=== PATIENT | female | born 1970 | race Caucasian/White ===

== ENCOUNTER → 2020-03-14 11:03 | Outpatient (BNVA) | payer BC, SELFPAY | PROVIDERS: PCP Nurse Practitioner; Visit Provider Internal Medicine Rheumatology | DX: M05.79 Rheumatoid arthritis with rheumatoid factor of multiple sites without organ or systems involvement (principal); Z79.899 Other long term (current) drug therapy; Z11.59 Encounter for screening for other viral diseases; F17.210 Nicotine dependence, cigarettes, uncomplicated; Z79.52 Long term (current) use of systemic steroids | CPT/HCPCS: 36415; 80076; 82565; 86140; 86704; 86803; 87340; 99204 ==

== ENCOUNTER → 2020-04-09 13:06 | Outpatient (BNVA) | payer BC, SELFPAY | PROVIDERS: PCP Nurse Practitioner; Visit Provider Orthopaedic Surgery | DX: M25.569 Pain in unspecified knee (principal) | CPT/HCPCS: 73560; 73565 ==

== ENCOUNTER 2020-05-04 15:09 | Outpatient (CLI) | payer BC, SELFPAY ==
--- NOTE | 2020-05-04 15:14 | MM_ITS ---
WS: [id number] BILATERAL DIGITAL SCREENING MAMMOGRAPHY WITH CAD CLINICAL INFORMATION: SCREENING HISTORY: Screening mammogram. No current complaints. COMPARISON: None. TECHNIQUE: Bilateral CC and MLO views. FINDINGS: Scattered fibroglandular densities bilaterally. No suspicious focal mass, asymmetry, calcifications, or architectural distortion. No evidence of malignancy. A few benign punctate calcifications. MM/[place] [id number] IMPRESSION: BI-RADS: 2-Benign FOLLOW UP: 1 Year Follow-up Recommend return to annual screening mammography.
== END 2020-05-04 15:10 | disposition home or self-care (01) ==
LOC: RADSHAW 15:12
PROVIDERS: PCP Nurse Practitioner; Visit Provider Nurse Practitioner
DX: Z12.31 Encounter for screening mammogram for malignant neoplasm of breast (principal)
CPT/HCPCS: 77067

== ENCOUNTER → 2020-05-09 10:08 | Outpatient (BNVA) | payer BC, SELFPAY | PROVIDERS: PCP Nurse Practitioner; Visit Provider Orthopaedic Surgery | DX: Z01.812 Encounter for preprocedural laboratory examination (principal); Z20.828 Contact with and (suspected) exposure to other viral communicable diseases | CPT/HCPCS: 87635 ==

== ENCOUNTER 2020-05-14 09:01 | Observation (INO) | payer BC, SELFPAY ==
[2020-05-10 11:59] VITALS: BMI 36.0
--- NOTE | 2020-05-10 12:17 | ANES.PREANE2 ---
Pre-Anesthetic Assessment Pre-Anesthetic Assessment: Height/Weight: Height 1.63 m Weight 95.254 kg Proposed Procedure: Operation Date: 05/14/20 10:10 Proposed Procedures p left Total Knee Arthroplasty 93937 M17.0(Left) - Devang Horan MD Familial anesthetic complications: woke up during surgery (was a spinal) Social: Social History: No alcohol and No tobacco Exam: Pre-Anes Outpt Exam: alert, oriented x 3, clear to auscultation bilaterally and regular rate & rhythm Airway: Cervical ROM: WNL MP: 3 Dentition: False (top) and Other (missing back molars) CV/HEM: CV/HEM: HTN Metabolic: Metabolic: Thyroid Musc/skel: Musc/skel: RA Comments: prednisone daily (will need hydrocortisone 100 mg IV pre-op) Neuropsych: Neuropsych: None reported Anesthetic Plan: ASA status: 2 Anesthesia: General and Regional (specify below) Other: Patient declining spinal, but ok w/ nerve block Risk of > 500 ml blood loss (7ml/kg in children): No PFSH Anesthesia PFSH: Medical History Chronic steroid use High risk medication use Hypertension Hypothyroidism Immunization counseling Rheumatoid arthritis Seropositive rheumatoid arthritis of multiple sites Surgical History History of foot surgery x5 right History of hand surgery 2right hand, 1 left hand History of hip replacement, total bilateral Family History Other CAD (coronary artery disease) Cancer Hyperlipidemia Hypertension Denies family history of Rheumatoid arthritis Diabetes Lupus Chronic kidney disease (CKD) Lung disease Stroke Social History Smoking and tobacco status: current every day smoker History of recent travel: No Data Anesthesia Cardiac Studies: No Data to Display
[2020-05-14] VITALS (19 sets, daily range): BP systolic 105–166; BP diastolic 70–99; PULSE 63–102; RESP 12–20; TEMP 36.1–37.2; O2SAT 94–98
[2020-05-14] MEDS: acetaminophen 500 mg Tablet 1000 MG PO ×2 (05:58→14:04)
[2020-05-14] MEDS: CELEcoxib 200 mg Capsule PO ×2 (05:58→17:41)
[2020-05-14] MEDS: sodium chloride 0.9% 1,000 ML 30 ML IV (05:58)
[2020-05-14] MEDS: oxyCODONE 20 mg ER (12 HR) Tablet PO (06:18)
[2020-05-14] MEDS: midazolam 1 mg/mL INJ 5 ML 5 MG IVP (06:25)
--- NOTE | 2020-05-14 06:34 | P.ANESUD_ITS ---
Pre-Anesthetic Update Pre-Anesthetic Assessment: Date of Surgery/Procedure: 05/14/20 Preop Olesya gnosis: left knee, rheumatoid arthritis/Avascular necrosis Proposed Procedure: Operation Date: 05/14/20 07:00 Proposed Procedures p left Total Knee Arthroplasty 88322 M17.0(Left) - Devang Horan MD Any changes to Pre-Anesthetic Assessment?: No Last Intake: Intake Last Liquid Date 05/13/20 Last Liquid Time 21:00 Last Solid Date 05/13/20 Last Solid Time 21:00 Vitals: Temperature 96.9 F L 05/14/20 05:46 Temperature Source Temporal Artery S can 05/14/20 05:46 Pulse Rate 88 05/14/20 05:46 Pulse Rhythm 05/14/20 05:46 Pulse Strength 3+ Normal 05/14/20 05:46 Respiratory Rate 18 05/14/20 06:18 Respiratory Effort 05/14/20 06:18 Respiratory Depth Normal 05/14/20 06:18 Respiratory Patter n 05/14/20 06:18 Blood Pressure 166/99 05/14/20 05:46 Blood Pressure Sun n 121 05/14/20 05:46 Pulse Oximetry 96 05/14/20 05:46 Oxygen Delivery Me thod 05/14/20 05:46 Exam: Pre-Anes Outpt Exam: alert, oriented x 3, clear to auscultation bilaterally and regular rate & rhythm Cardiac Studies: No Data to Display
--- NOTE | 2020-05-14 06:34 | ANES.PROC ---
Anesthesia Procedures Procedure/Date: 05/14/20 Nerve Block ^: Nerve Block 1: Main Anesthesia: general anesthesia Time Out Performed: Yes Consent: requested by attending/covering physician, from patient, risks and benefits reviewed and patient agrees to proceed Nerve block location: adductor canal (L) Anesthesia monitors applied: pulse oximetry, EKG, BP cuff and oxygen Nerve block position: supine Anesthetic Used: ropivicaine 0.5% and with decadron (4 mg) Amount of anesthesia used (mL): 30 Ultrasound used to: recognize landmarks and visualize and ID femerol nerve Nerve Stimulator Used?: No Interscalene/Femoral BLK: 4 stimuplex 21 g needle used for position and inplane approach, visualize local anesthetic spread and no vascular puncture identified Injection: neg aspiration of heme Patient Tolerated Procedure: well and no complications Complications: none
--- NOTE | 2020-05-14 07:06 | W.PM.OPSFHP ---
Same Day Surgery H&P Indication for Procedure/HPI DATE OF PROCEDURE: May 14, 2020 CHIEF COMPLAINT/INDICATIONFOR SURGICAL PROCEDURE: Osteoarthritis left knee here for left total knee arthroplasty PREOP DIAGNOSIS: left knee, rheumatoid arthritis/Avascular necrosis PLANNED PROCEDRUE: Operation Date: 05/14/20 07:00 Proposed Procedures p left Total Knee Arthroplasty 43556 M17.0(Left) - Devang Horan MD Medications/Allergies* Home Medications Medication Instructions Recorded Confirmed Type gabapentin 100 mg capsule 100 mg PO DAILY 03/14/20 05/14/20 History hydrochlorothiazide 25 mg tablet 25 mg PO DAILY 03/14/20 05/14/20 History ibuprofen 200 mg tablet 800 mg PO Q8H PRN tab 03/14/20 05/10/20 History levothyroxine 175 mcg capsule 175 mcg PO DAILY 03/14/20 05/14/20 History prednisone 10 mg tablet 10 mg PO DAILY 03/14/20 05/14/20 History tramadol 50 mg tablet 100 mg PO TID tab 03/14/20 05/14/20 History Allergies/Adverse Reactions Allergy/AdvReac Type Severity Reaction Status Date / Time Penicillins Allergy Severe ALGY-Anaphy Verified 05/14/20 05:56 laxis Current Medications: Generic Name Dose Route Start Last Admin Trade Name Freq PRN Reason Stop Dose Admin Sodium Chloride 1,000 mls @ 30 mls/hr 05/14/20 05:45 05/14/20 05:58 Sodium Chloride 0.9% IV 05/15/20 05:44 30 mls/hr .Q24H MICHELLE Administration Pertinent History/Comorbid Conditions* Medical History (Updated 04/09/20 @ 13:34 by Devang Horan MD) Chronic steroid use High risk medication use Hypertension Hypothyroidism Immunization counseling Rheumatoid arthritis Seropositive rheumatoid arthritis of multiple sites Surgical History (Updated 03/14/20 @ 12:39 by Devaughn Munson MD) History of foot surgery x5 right History of hand surgery 2right hand, 1 left hand History of hip replacement, total bilateral Family History (Updated 03/14/20 @ 12:00 by Mckenzie Hernadez LPN) CAD (coronary artery disease) Hyperlipidemia Cancer Hypertension Denies family history of Rheumatoid arthritis Diabetes Lupus Chronic kidney disease (CKD) Lung disease Stroke Social History Smoking and tobacco status: current every day smoker History of recent travel: No Pertinent Exam Findings alert, oriented x 3, regular rate & rhythm and operative site marked Recommendations Surgery/Procedure today Coding Level of Care Code Acute 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
[2020-05-14] MEDS: EPINEPHrine 1 mg/mL INJ XX (08:24)
[2020-05-14] MEDS: ketorolac 30 mg/mL INJ IM (08:24)
[2020-05-14] MEDS: tranexamic acid 1,000 mg/10mL SDV 1000 MG IRRIGATION (08:25)
--- NOTE | 2020-05-14 09:19 | P.OP_ITS ---
Operative Report Date of procedure: May 14, 2020 Pre-op Diagnosis: left knee, rheumatoid arthritis/Avascular necrosis Post-op diagnosis: same Post-op Findings: Same Procedure Done: Left total knee arthroplasty Implants: Gilliam total knee arthroplasty components were used includin) Size 3 triathalon cruciate retaining femoral component 2) Size 3 Tritanium tibial component 3) Size 3/11mm thickness CR tibial bearing insert Pathology: none sent Surgeon: Devang Horan Anesthesia: Nerve Block (Spinal) Estimated blood loss (mL): 200 Findings: Patient had collapse of the articular cartilage and subchondral bone of the medial femoral condyle. Pathology seem fairly localized to the avascular necrosis in the medial femoral condyle. She had minimal chondromalacia centrally about her trochlea. Patient had excellent vascularity of the bone throughout the knee. She had minimal synovitis Condition: stable Disposition: PACU Brief History: The patient is a 49-year-old female with rheumatoid arthritis and progressive left knee pain x8 months. Radiographs revealed collapse of the medial femoral condyle consistent with avascular necrosis. Total knee arthroplasty is chosen to reconstruct the joint and improve pain and function. Immunosuppressive agents have been stopped. Procedure: The patient was taken to the operating room. Patient was given 1 g of tranexamic acid . The above anesthesia provided by the anesthesia service. A timeout was performed. The patient was prepped and draped in the usual fashion with the lower extremity exposed. A anterior incision was made, midline, from a point proximal to the patella to the distal tibial tubercle. The knee was entered through a medial parapatellar approach. The patella could be displaced laterally and the knee flexed. The patellar fat pad was resected to provide better visibility. Retractors were placed medially and laterally adjacent to the tibial plateau. The femoral canal was drilled in line with the longitudinal axis of the femur. Intramedullary femoral guide for used to make a distal femoral cut in 5 degrees of valgus, resecting 8 mm from the more prominent condyle. Next the extra medullary tibial guide was placed in alignment with the longitudinal axis of the tibia. The cutting guides were set to remove just over 9 mm from the high tibial plateau. The proximal tibia was then cut. The femoral measuring guide was then placed over the distal femur. Rotation was verified checking the relationship of the guide to the condyle and the trochlear groove. The femur was measured and cut for the desired femoral component. The desired tibial baseplate was then chosen. A trial reduction with the femur tibial baseplate and polyethylene was done, assuring that the knee was stable throughout full motion. Ligament balancing involve nothing more than a release of the deep medial collateral ligament.The tibia was prepared for the tibial baseplate. Patellar thickness was then measured. The patella was cut removing articular cartilage and prepared for appropriate size patellar button. All surfaces were cleaned with pulsatile lavage. The femur tibia and patella were then press-fit into place. The posterior capsule and collateral ligaments were then injected with a solution of 100 mL of 0.2% ropivacaine, 1 mL of a 1:1000 epinephrine solution, and 30 mg of Toradol. Final polyethylene component was then snapped into place into the tibia. 2 grams of tranexamic acid were applied to the wound. The tourniquet was deflated. The tranxanemic acid was left contact with the knee for 5 minutes before the knee was irrigated with saline. The extensor retinaculum was closed with 1 Ethibond. The subcutaneous tissues were closed with 2-0 Vicryl and the skin was closed with skin lan. A compressive dressing was applied. The patient was taken to recovery room in stable condition.
[2020-05-14] MEDS: fentaNYL 50 mcg/mL INJ 2mL IVP ×2 (09:24→09:29)
--- NOTE | 2020-05-14 09:48 | XR_ITS ---
WS: [id number] XR knee LT 2 [id number] REASON FOR EXAM: Left Total knee arthroplasty FINDINGS: There has been left knee arthroplasty with prosthetic replacement of the femoral and tibial articular surfaces. The components of the prosthesis and the tibia and femur are in proper position and alignment. Chronic bony defect in the lateral femoral condyle not associated with the articulation. XR/[place] [id number] IMPRESSION: Left knee arthroplasty as above.
--- NOTE | 2020-05-14 10:17 | SUR.PHASEI ---
0920 PT HAS STRONG l. PEDAL PULSE, CAP REFILL <3 SEC, HAS MOVEMENT/SENSATION
[2020-05-14] MEDS: sodium chloride 0.9% 1,000 ML 100 ML IV ×2 (10:18→21:10)
[2020-05-14] MEDS: clindamycin 900 MG/50 ML PREMIX 100 MG IV ×2 (14:04→23:56)
--- NOTE | 2020-05-14 15:03 | ANE.PACU2 ---
Inpatient post-anesthesia follow up: Airway intact: Yes Vital signs: Temperature 98.9 F Pulse Rate 85 Respiratory Rate 16 Blood Pressure 108/74 Pulse Oximetry 96 Oxygen Delivery Me thod Room Air Oxygen Flow Rate Fraction of Inspir ed Oxygen Hydration adequate: Yes Nausea and vomiting: No Pain level: 4 Mental status: Baseline
[2020-05-14] MEDS: sennosides-docusate Tablet 2 TAB PO (17:41)
[2020-05-14] MEDS: gabapentin 300 mg Capsule PO (17:41)
[2020-05-14] MEDS: TRAMadol 50 mg Tablet 100 MG PO (17:43)
[2020-05-14] MEDS: oxyCODONE 5 mg IR Tab/Cap PO (21:08)
[2020-05-15] MEDS: TRAMadol 50 mg Tablet 100 MG PO (04:58)
[2020-05-15] MEDS: CELEcoxib 200 mg Capsule PO (05:00)
[2020-05-15 05:27] LABS: Hemoglobin 11.3 g/dL (11.5-15.3)
[2020-05-15] MEDS: clindamycin 900 MG/50 ML PREMIX 100 MG IV (06:19)
--- NOTE | 2020-05-15 07:21 | PM.DCS ---
Discharge Providers Date of Admission: 05/14/20 09:01 Date of Discharge: May 15, 2020 Attending Provider at Admission: Devang Horan MD Attending Provider at Discharge: Devang Horan MD Primary Care Provider: AURELIA Bravo Diagnoses at Discharge Discharge Diagnosis (1) Osteonecrosis of left knee region: Status: Acute (2) Status post left knee replacement: Status: Acute (3) Seropositive rheumatoid arthritis of multiple sites: Status: Acute (4) High risk medication use: Status: Acute (5) Chronic steroid use: Status: Acute Reason for Visit Reason for Visit: left total knee arthroplasty Hospital Course Hospital Course The patient is a 49-year-old female with longstanding rheumatoid arthritis and radiographs showing avascular necrosis of her medial femoral condyle. She had progressive limiting pain. She was admitted for elective left total knee arthroplasty. Postoperatively she did very well. She had minimal postoperative pain. She was begun on aspirin and foot pumps for DVT prophylaxis. She remained hemodynamically stable. By the first postoperative day she was up independent with therapy and thought stable for discharge Physical Exam Narrative: EXAM NARRATIVE: On the day of discharge his knee incision was clean. They had no drainage. There is minimal swelling in the thigh and knee and the calf. No distal neurovascular deficits were noted Urinary Catheter Management^: Frey: Cath Placed During This Visit: yes, but has since been removed by the nurse Reason for Continuing Indwelling Catheter: Decision to DC Catheter Urinary Catheter Date of Insertion: 05/14/20 Urinary Catheter Time of Insertion: 07:30 Date Urinary Catheter Removed: 05/15/20 Time Urinary Catheter Discontinued: 06:57 Discharge Data Data Completed and Pending: Completed Studies During Hospitalization Category Date Time Status XR knee LT 1-2V 7 3560 Routine Exams 05/14/20 09:48 Completed Labs from last 24 hours 05/15/20 05:15 Hgb 11.3 L Vitals: Last Vital Signs Temp 98.4 F 05/14/20 16:50 Pulse 63 05/14/20 16:50 Resp 18 05/14/20 21:08 BP 122/79 05/14/20 16:50 Pulse Ox 98 05/14/20 21:08 Discharge Plan Discharge Patient Disposition: Home Condition: Stable Prescriptions: New oxycodone 5 mg Tablet 5 mg PO Q4H PRN (Reason: Moderate Pain) 7 Days Qty: 30 RF: 0 acetaminophen 500 mg Tablet 1,000 mg PO Q8H Qty: 60 RF: 0 aspirin 325 mg Tablet,Delayed Release (Dr/Ec) 325 mg PO DAILY 30 Days RF: 0 Continued hydrochlorothiazide 25 mg tablet 25 mg PO DAILY RF: 0 levothyroxine 175 mcg capsule 175 mcg PO DAILY RF: 0 prednisone 10 mg tablet 10 mg PO DAILY RF: 0 gabapentin 100 mg capsule 100 mg PO DAILY RF: 0 tramadol 50 mg tablet 100 mg PO TID RF: 0 leflunomide 20 mg tablet 20 mg PO DAILY Qty: 30 RF: 3 pantoprazole 40 mg tablet,delayed release (DR/EC) 40 mg PO DAILY Qty: 30 RF: 3 Rinvoq 15 mg tablet extended release 24 hr 15 mg PO DAILY Qty: 30 RF: 3 mupirocin 2 % ointment 1 applic topical BID Qty: 22 RF: 0 Discontinued ibuprofen 200 mg tablet 800 mg PO Q8H PRN (Reason: Pain) RF: 0 Discharge Orders: Discharge Order (Routine); Ordered 05/15/20 Ordered By: Devang Horan Other Ambulatory Orders: DME: [facility] (Order) Location: None Selected Ordered By: Devang Horan Referrals: Devang Horan MD [Physician] - 2 weeks Discharge Diet: Advance as tolerated Discharge Activity: Limit activity as instructed Activity Restrictions/Additional Instructions: May shower once incisions completely free of drainage. Discontinue knee dressing in 24-48 hours. Replaced dressings as needed. Take Celebrex twice a day for the next 15 days for pain , discontinue other anti-inflammatories Increase gabapentin to 100 mg twice daily for 2 weeks. If pain minimal may decrease back to nightly as routine Take Tylenol for mild breakthrough pain. Take tramadol for moderate breakthrough pain. Take oxycodone for severe breakthrough pain Exercises per physical therapy. 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
[2020-05-15] MEDS: aspirin 325 mg EC Tablet PO (08:09)
[2020-05-15] MEDS: sennosides-docusate Tablet 2 TAB PO (08:09)
[2020-05-15] MEDS: pantoprazole DR 40 mg Tablet PO (08:09)
[2020-05-15] MEDS: predniSONE 10 mg Tablet PO (08:09)
[2020-05-15] MEDS: hydroCHLOROthiazide 25 mg Tablet PO (08:09)
[2020-05-15] MEDS: levothyroxine 50 mcg Tablet PO (08:10)
[2020-05-15] MEDS: gabapentin 300 mg Capsule PO (08:10)
[2020-05-15] MEDS: levothyroxine 125 mcg Tablet PO (08:10)
--- NOTE | 2020-05-15 08:40 | PC.OT ---
OT screen completed. Pt already had dressed self when OT arrived. She demonstrated mod I with ambulation to bathroom with front wheel walker, toilet transfer, standing at sink for hand washing, and return to bed. She reported her can help at home as needed and she is waiting on walker to be delivered. No further OT recommended at this time.
[2020-05-15 08:52] VITALS: BP 149/85; PULSE 84; RESP 18; TEMP 36.7; O2SAT 97
--- NOTE | 2020-05-15 09:11 | PC.CHAP ---
Pastoral Care Encounter/Spiritual Assessment Type of Contact [] Declined director of retention visit [] Patient/Family/Request visit [] Outpatient visit [] Follow-up visit [] Physician referral [] Code/Alert [] Routine visit [] Staff referral [] Actively dying [] Patient sleeping [] Family support [] [] Out of room [] Palliative care [] [] Receiving care in room [] Pre-surgical visit [] Trauma [] Long length of stay [] ICU visit [] Other: Relational/Emotional Strength [] Patient feels connected with others/family/visitors/staff [] Distress [] Loneliness/isolation [] Abandonment Spirituality of Patient [] Person of Mary [] Attends Confucianism of their Mary [] Believes in Prayer [] Reads Bible or Jewish materials [] There are Spiritual issues to be addressed Tar Processing Technician Interventions [x] Prayer [] Active listening [] Non-anxious presence [] Spiritual/emotional support [] Crisis/trauma care [] Spiritual counseling [] Bereavement support [] Provided bereavement packet [] Provided Bible/devotional materials [] Provided toy/stuffed animal, coloring book to patient or family member [] Provided Communion [] Anointing/[place] [] Salvation [] Completed spiritual assessment [] Other: Impact on Illness or Injury [] Angry [] Fearful [] Anxious [] Often cries [] Exhaustion [] Unable to work [] Unable to attend jainism [] Unable to walk/stand [] Unable to read [] Unable to drive [] Unable to eat/drink [] Unable to sleep [] Unable to be with family [] Patient intubated [] Other: Summary ready to go home Time spent with patient 10 min
[2020-05-15 10:17] VITALS: BP 149/85; PULSE 84; RESP 18; TEMP 36.7; O2SAT 97
--- NOTE | 2020-05-16 16:37 | PC.RESP ---
Smoking Cessation information sent to patient.
== END 2020-05-15 09:45 | disposition home or self-care (01) ==
LOC: MEDSURG 09:01
PROVIDERS: Admitting Provider Orthopaedic Surgery; PCP Nurse Practitioner; Visit Provider Orthopaedic Surgery
PROC: (CPT 27447; principal; 2020-05-14 07:00)
DX: M06.862 Other specified rheumatoid arthritis, left knee (principal); M87.9 Osteonecrosis, unspecified; Z79.899 Other long term (current) drug therapy; Z79.52 Long term (current) use of systemic steroids; M05.79 Rheumatoid arthritis with rheumatoid factor of multiple sites without organ or systems involvement; I10 Essential (primary) hypertension; F17.210 Nicotine dependence, cigarettes, uncomplicated; E03.9 Hypothyroidism, unspecified
CPT/HCPCS: 27447; 12345; 36415; 64447; 73560; 76942; 85018; 96361; 96365; 96374; 97110; 97116; 97161; C1776; G0378; J0171; J1100; J1580; J1885; J2250; J2405; J2704; J2710; J2795; J3010; J3490; J7030; J7512

== ENCOUNTER 2020-05-31 11:03 | Outpatient (CLI) | payer BC, SELFPAY ==
--- NOTE | 2020-05-31 08:45 | USCV_ITS ---
Kristine Barbosa Age: 49 Gender: F : 1970 Exam Date: 05/31/2020 11:17 Ordering Phys: Devang Horan MD Technologist: Berenice Peck [place]am Location[place] [facility] [place]: LT CALF SWELLING POST OP HISTORY: Lower extremity swelling. PROCEDURES: Venous duplex imaging was performed in only the left lower extremity. The following venous structures were evaluated: common femoral vein, profunda vein, proximal portion of the greater saphenous vein, superficial femoral vein, and the popliteal vein. In addition, the posterior tibial and peroneal trunk were evaluated. FINDINGS: Normal 2-D Doppler and augmentation and compressibility throughout the lower extremity venous structures. Additional imaging through the proximal calf veins also reveals no thrombus. Limited evaluation of the greater saphenous vein is patent with no thrombus.. CONCLUSIONS No evidence of left lower extremity DVT. Sixto Gunter MD (Electronically Signed) Final Date: 31 May 2020 14:18 S
== END 2020-05-31 11:04 | disposition home or self-care (01) ==
LOC: RAD 11:04
PROVIDERS: PCP Nurse Practitioner; Visit Provider Orthopaedic Surgery
DX: Z96.652 Presence of left artificial knee joint (principal); R22.42 Localized swelling, mass and lump, left lower limb
CPT/HCPCS: 93971

== ENCOUNTER 2021-12-28 13:43 | Emergency (ER) | payer MEDICARE, SELFPAY ==
[2021-12-28 13:57] VITALS: BP 183/55; PULSE 100; RESP 18; TEMP 36.8; O2SAT 97; BMI 38.9
--- NOTE | 2021-12-28 14:02 | XRR_ITS ---
PROCEDURE INFORMATION: Exam: XR Bilateral Hips Exam date and time: 12/28/2021 2:59 PM Age: 51 years old Clinical indication: Hip pain; Prior surgery; Surgery type: Bilateral total hip arthroplasty; Patient HX: Right hip/low back pain, cannot bear weight on right leg x four days TECHNIQUE: Imaging protocol: Radiologic exam of the bilateral hips. Views: 2 views of hips with pelvis when performed. COMPARISON: No relevant prior studies available. FINDINGS: Bones/joints: Intact bilateral total hip arthroplasties in expected alignment. No acute fracture. No irregular osseous erosions. DJD at the lower lumbar spine noted. Soft tissues: Unremarkable. XR/XR hip BI 2V wo/w pel [id number] IMPRESSION: No acute findings.
[2021-12-28 14:36] VITALS: BP 144/81; PULSE 78; TEMP 36.9; O2SAT 98
--- NOTE | 2021-12-28 14:40 | W.ED.EXTPRO ---
HPI - Extremity Problem General: Chief complaint: Extremity Problem,Nontraumatic Stated complaint: right hip injury Time Seen by Provider: 12/28/21 14:40 History of Present Illness: 51-year-old female comes in today with right hip pain. Patient reports that she was concerned due to her right hip being replaced 15 years ago due to her rheumatoid arthritis. Patient knew that for the most part they only last about 15 years. No acute distress is noted. Patient appears nontoxic. Patient denies fever or chills. Patient appears in mild pain at rest. Review of Systems General: Reports: 10 or more systems reviewed and unremarkable except in HPI and below Musc: Reports: joint pain PFSH ED PFSH: Medical History Chronic steroid use High risk medication use Hypertension Hypothyroidism Immunization counseling Rheumatoid arthritis Seropositive rheumatoid arthritis of multiple sites Surgical History History of foot surgery x5 right History of hand surgery 2right hand, 1 left hand History of hip replacement, total bilateral Family History Other CAD (coronary artery disease) Cancer Hyperlipidemia Hypertension Denies family history of Rheumatoid arthritis Diabetes Lupus Chronic kidney disease (CKD) Lung disease Stroke Social History Smoking and tobacco status: current every day smoker History of recent travel: No Physical Exam Const: COMMON NORMALS: alert HENMT: COMMON NORMALS: normocephalic HEAD & SCALP: normocephalic Neck/C-Spine: COMMON NORMALS: full ROM Resp: COMMON NORMALS: normal respiratory effort Extremity: NARRATIVE EXTREMITY EXAM: Tenderness to the right lower back and posterior right buttocks. Neuro: SENSORIUM/ORIENTATION: Yes alert Skin: COMMON NORMALS: no rashes or lesions noted GENERAL SKIN EXAM: no rashes or lesions noted Course Vital Signs: Vital signs: Vital Signs Temperature 98.4 F 12/28/21 14:36 Pulse Rate 78 12/28/21 14:36 Respiratory Rate 18 12/28/21 13:57 Blood Pressure 144/81 12/28/21 14:36 Pulse Oximetry 98 12/28/21 14:36 MDM - Extremity (Nontraumatic) Medical Decision Making 51-year-old female comes in today with complaints of right hip pain. Patient reports awakening 2 days ago and started with pain in her right hip at that time. Patient has had difficulty ambulating and getting around. Patient has a significant history of rheumatoid arthritis with bilateral hip replacements. Patient denies any fever. Upon exam there is no obvious redness or inflammation to the back or hip area. Vital signs are normal. Differential diagnosis includes but not limited to occult fracture, tendinitis, sciatica, intervertebral disc disease, facet arthropathy. X-ray of the pelvis and hip noted no fractures. Reviewed exam with patient with recommendations for treatment. Patient requested referral to orthopedist for further evaluation of her spine due to her history of rheumatoid arthritis. Patient was recommended to follow-up by her head concierge. Referral placed to case management for assistance with referral to orthopedic social problems specialist Dr. Carlos. Lab Data Radiology Impressions Hip/Pelvis X-Ray 12/28/21 14:02 IMPRESSION: No acute findings. Discharge Plan Discharge Patient Disposition: Home Clinical Impression: Pain in right hip, Rheumatoid arteritis Sciatica Qualifiers: Laterality: right Qualified Code(s): M54.31 - Sciatica, right side Condition: Stable Prescriptions: New prednisone 20 mg tablet 20 mg PO DAILY 10 Days Qty: 10 0RF No Action hydrochlorothiazide 25 mg tablet 25 mg PO DAILY levothyroxine 175 mcg capsule 175 mcg PO DAILY prednisone 10 mg tablet 10 mg PO DAILY gabapentin 100 mg capsule 100 mg PO DAILY tramadol 50 mg tablet 100 mg PO TID leflunomide 20 mg tablet 20 mg PO DAILY Qty: 30 3RF pantoprazole 40 mg tablet,delayed release (DR/EC) 40 mg PO DAILY Qty: 30 3RF Rinvoq 15 mg tablet extended release 24 hr 15 mg PO DAILY Qty: 30 3RF mupirocin 2 % ointment 1 applic topical BID Qty: 22 0RF Rx Instructions: pea sized amount to each nostril twice daily acetaminophen 500 mg Tablet 1,000 mg PO Q8H Qty: 60 0RF aspirin 325 mg Tablet,Delayed Release (Dr/Ec) 325 mg PO DAILY Qty: 30 0RF Discharge Orders: Discharge ED (Routine); Ordered 12/28/21 Ordered By: Cuco Story Referrals: Kenia Berger FNP [Primary Care Provider] - Discharge Diet: Usual diet Discharge Activity: Increase activity as tolerated Patient Instructions: Back Pain (ED) Activity Restrictions/Additional Instructions: Activity as tolerated. Drink plenty of water with medications. Gentle stretching and range of motion exercises. Follow-up with primary care as needed. Case management will contact you regarding follow-up appointment with orthopedic social problems specialist. Coding Level of Care Code ED Library Circulation Assistant for Paolo Fwd Exam Expanded Problem Focused
--- NOTE | 2021-12-30 12:45 | DCPLANNER ---
Addendum entered by Erma Jaramillo 01/21/22 13:55: Patient had a follow up appointment scheduled with ortho - patient did attend appointment. Addendum entered by Erma Jaramillo 12/31/21 13:12: Patient has a follow up appointment scheduled for Friday, December 31, 2021 at 3:[address] Carlos at ortho. Clinic will call patient with appointment information. Original Note: vice president & general manager [employer] had message to schedule a follow up appointment for patient with ortho. vice president & general manager [employer] sent patients information to the front office staff at ortho. Patients information will be printed and reviewed. Clinic will call patient with appointment information.
== END 2021-12-28 15:41 | disposition home or self-care (01) ==
PROVIDERS: Emergency Provider Nurse Practitioner Family; PCP Nurse Practitioner
DX: M25.551 Pain in right hip (principal); M06.9 Rheumatoid arthritis, unspecified; M54.31 Sciatica, right side; Z79.82 Long term (current) use of aspirin; I10 Essential (primary) hypertension; F17.210 Nicotine dependence, cigarettes, uncomplicated
CPT/HCPCS: 73521; 73523; 99283

== ENCOUNTER → 2022-01-02 15:10 | Outpatient (BNVA) | payer MEDICARE, SELFPAY | PROVIDERS: PCP Nurse Practitioner; Visit Provider Orthopaedic Surgery | DX: M43.16 Spondylolisthesis, lumbar region; M25.551 Pain in right hip | CPT/HCPCS: 72120; 99204 ==

== ENCOUNTER 2022-01-05 22:22 | Inpatient (IN) | payer MEDICARE, SELFPAY ==
[2022-01-05 22:24] VITALS: BP 126/78; PULSE 99; RESP 18; TEMP 37; O2SAT 95; BMI 35.4
--- NOTE | 2022-01-05 22:26 | USR_ITS ---
PROCEDURE INFORMATION: Exam: US Duplex Lower Extremity Veins, Bilateral Exam date and time: 01/05/2022 10:49 PM Age: 51 years old Clinical indication: Edema, localized; Lower extremity, bilateral; Patient HX: 3+ pitting edema bilateral lower extremities. No history of dvt per patient. ; Additional info: Leg swelling TECHNIQUE: Imaging protocol: Real-time Duplex ultrasound of the bilateral extremities with 2-D sumner scale, color Doppler flow and spectral waveform analysis with image documentation. Complete exam focused on the bilateral lower extremity veins. COMPARISON: CR XR knee LT 1-2V [id number] 05/14/2020 10:01 AM FINDINGS: Right deep veins: Unremarkable. The common femoral, femoral, proximal profunda femoral and popliteal veins are patent without thrombus. Normal Doppler waveforms. Normal compressibility and/or augmentation response. Right superficial veins: Saphenofemoral junction is patent without thrombus. Left deep veins: Unremarkable. The common femoral, femoral, proximal profunda femoral and popliteal veins are patent without thrombus. Normal Doppler waveforms. Normal compressibility and/or augmentation response. Left superficial veins: Saphenofemoral junction is patent without thrombus. Soft tissues: Unremarkable. US/[place] [id number] IMPRESSION: No evidence of deep vein thrombosis.
[2022-01-05 22:34] LABS: Basophils # 0.1 10^3/uL (0.0-0.1); Basophils % 0.3 %; Hematocrit 42.1 % (37.0-47.0); Hemoglobin 14.7 g/dL (11.5-15.3); Lymphocytes # 0.9 10^3/uL (0.8-4.8); Lymphocytes % 3.3 %; Mean Corpuscular HGB Conc 34.9 g/dL (30.0-36.0); Mean Corpuscular Hemoglobin 30.4 pg (28.0-34.0); Mean Platelet Volume 12.1 fL (7.4-10.4); Monocytes # 1.8 10^3/uL (0.2-0.9); Monocytes % 6.6 %; Neutrophils # 24.48 10^3/uL (1.8-7.7); Neutrophils % 88.5 %; Nucleated Red Blood Cells % 0 %; Platelet Count 398 10^3/cmm (130-400); Red Blood Count 4.84 10^6/uL (4.1-5.3); Red Cell Distribution Width 13.1 % (12.1-15.1); White Blood Count 27.7 10^3/uL (4.0-10.0)
[2022-01-05 22:40] VITALS: RESP 18
[2022-01-05] MEDS: morphine 4 mg/mL SDV 1 mL IVP (22:40)
[2022-01-05] MEDS: ondansetron 2 mg/ML SDV 2 mL 4 MG IVP (22:40)
[2022-01-05 23:03] LABS: Alanine Aminotransferase 25 U/L (0-33); Albumin Level 3.2 g/dL (3.5-5.2); Alkaline Phosphatase 197 IU/L (35-105); Anion Gap 24.7 (5-19); Aspartate Amino Transferase 23 U/L (0-32); Blood Urea Nitrogen 17 mg/dL (6-20); Calcium 9.3 mg/dL (8.5-10.5); Carbon Dioxide 17 mmol/L (22-29); Chloride 93 mmol/L (98-107); Globulin 3.2 g/dL (1.3-4.6); Glomerular Filtration Rate 87.5 mL/min (90-130); Glucose 106 mg/dL (65-115); NT Pro B Type Natriuretic Pept 98 pg/mL (0-125); Osmolality Calculated 274 mOsm/kg (285-295); Potassium 3.7 mmol/L (3.5-5.1); Sodium 131 mmol/L (136-145); Total Bilirubin 0.4 mg/dL (0.15-1.2); Total Protein 6.4 g/dL (6.6-8.7)
--- NOTE | 2022-01-05 23:14 | ED_ITS ---
HPI - Extremity Problem General: Chief complaint: Extremity Problem,Nontraumatic Stated complaint: BILAT EDEMA Time Seen by Provider: 01/05/22 22:23 Source: patient and EMS Mode of arrival: EMS Limitations: no limitations History of Present Illness: 51-year-old female has a history of rheumatoid arthritis patient states that over the last week she has been having increasing bilateral leg pain and swelling. She states that she has been having a hard time walking over the last 4 days not been able to get around her house. States pain is a 9 out of 10 denies any fevers denies any chest pain. Associated symptoms: Deny chest pain, fever(s) or rash Review of Systems Const: Denies: fever(s), chills, body aches or change in appetite Eyes: Denies: blurry vision or eye discomfort ENMT: Denies: throat pain or dental pain Card: Denies: chest pain Resp: Denies: dyspnea GI: Denies: abdominal pain, nausea, vomiting or diarrhea : Denies: dysuria Musc: Reports: extremity pain and extremity swelling Skin/Breast: Denies: rash Neuro: Denies: headache(s) Psych: Denies: depression Malick/Lymph: Denies: easy bruising All/Imm: Denies: urticaria PFSH ED PFSH: Medical History Chronic steroid use High risk medication use Hypertension Hypothyroidism Immunization counseling Rheumatoid arthritis Seropositive rheumatoid arthritis of multiple sites Surgical History History of foot surgery x5 right History of hand surgery 2right hand, 1 left hand History of hip replacement, total bilateral Family History Other CAD (coronary artery disease) Cancer Hyperlipidemia Hypertension Denies family history of Rheumatoid arthritis Diabetes Lupus Chronic kidney disease (CKD) Lung disease Stroke Social History Smoking and tobacco status: current some day smoker History of recent travel: No Physical Exam Const: COMMON NORMALS: no acute distress, patient oriented x3 and healthy appearing HENMT: COMMON NORMALS: normocephalic and atraumatic HEAD & SCALP: normocephalic and atraumatic Eye: COMMON NORMALS: Equal, round and reactive pupils present and EOMs intact bilaterally PUPIL: Yes Equal, round and reactive pupils present Neck/C-Spine: COMMON NORMALS: full ROM and supple Chest: COMMONS NORMALS: normal inspection of the chest and normal palpation of entire chest wall Resp: COMMON NORMALS: normal respiratory effort, No retractions, No use of accessory muscles and clear to auscultation bilaterally AUSCULTATION: clear to auscultation bilaterally Cardio: COMMON NORMALS: regular rate, regular rhythm and No murmurs present (Cardio) RATE: regular rate RHYTHM: regular rhythm GI: COMMON NORMALS: Normal to inspection, nondistended, normoactive bowel sounds present, Soft to palpation, non-tender and no masses PALPATION: Yes Soft to palpation Extremity: COMMON NORMALS: full ROM NARRATIVE EXTREMITY EXAM: Swelling bilateral lower extremities no obvious cellulitis or infection distal pulses intact Neuro: COMMON NORMALS: patient oriented x3, moves all extremities and no focal motor deficits Psych: COMMON NORMALS: mental status grossly normal, Normal thought process present and cooperative THOUGHT PROCESS: Normal thought process present Skin: COMMON NORMALS: no rashes or lesions noted and no wounds GENERAL SKIN EXAM: no rashes or lesions noted Course Vital Signs: Vital signs: Vital Signs Temperature 98.6 F 01/05/22 22:24 Pulse Rate 99 01/05/22 22:24 Respiratory Rate 22 H 01/06/22 01:54 Blood Pressure 126/78 01/05/22 22:24 Pulse Oximetry 98 01/06/22 01:54 Oxygen Delivery Me thod 01/05/22 22:24 MDM - Extremity (Nontraumatic) Medical Decision Making Patient presents here with hip pain states she is unable to ambulate anymore due to her pain she also has chronic pain from her rheumatoid arthritis CT of her hip here is normal she does have a leukocytosis she is on chronic steroids but elevated from her baseline she also has an elevated CRP as well. Her lactate is normal she states she did have a fever 3 days ago at home she is afebrile here we will get blood cultures start patient on IV antibiotics will admit to rule out any infection concern of a possible septic hip Lab Data : 01/05/22 22:05 01/05/22 22:05 Radiology Impressions Venous Duplex 01/05/22 22:26 IMPRESSION: No evidence of deep vein thrombosis. Chest X-Ray 01/05/22 23:39 IMPRESSION: Possible left pleural effusion. Hip CT 01/06/22 00:27 IMPRESSION: There are no acute osseous findings. Laboratory Results WBC 27.7 10^3/uL (4.0-10.0) H 01/05/22 22:05 RBC 4.84 10^6/uL (4.1-5.3) 01/05/22 22:05 Hgb 14.7 g/dL (11.5-15.3) 01/05/22 22:05 Hct 42.1 % (37.0-47.0) 01/05/22 22:05 MCV 87.0 fl (81-99) 01/05/22 22:05 MCH 30.4 pg (28.0-34.0) 01/05/22 22:05 MCHC 34.9 g/dL (30.0-36.0) 01/05/22 22:05 RDW 13.1 % (12.1-15.1) 01/05/22 22:05 Plt Count 398 10^3/cmm (130-400) 01/05/22 22:05 MPV 12.1 fL (7.4-10.4) H 01/05/22 22:05 Neut % (Auto) 88.5 % 01/05/22 22:05 Lymph % (Auto) 3.3 % 01/05/22 22:05 Victoria % (Auto) 6.6 % 01/05/22 22:05 Eos % (Auto) 0.0 % 01/05/22 22:05 Baso % (Auto) 0.3 % 01/05/22 22:05 Neut # (Auto) 24.48 10^3/uL (1.8-7.7) H 01/05/22 22:05 Lymph # (Auto) 0.9 10^3/uL (0.8-4.8) 01/05/22 22:05 Victoria # (Auto) 1.8 10^3/uL (0.2-0.9) H 01/05/22 22:05 Eos # (Auto) 0.0 10^3/uL (0.0-0.8) 01/05/22 22:05 Baso # (Auto) 0.1 10^3/uL (0.0-0.1) 01/05/22 22:05 Nucleated RBC % (auto) 0 % 01/05/22 22:05 Nucleated RBCs # 0.0 /100WBC 01/05/22 22:05 Sodium 131 mmol/L (136-145) L 01/05/22 22:05 Potassium 3.7 mmol/L (3.5-5.1) 01/05/22 22:05 Chloride 93 mmol/L (98-107) L 01/05/22 22:05 Carbon Dioxide 17 mmol/L (22-29) L 01/05/22 22:05 Anion Gap 24.7 (5-19) H 01/05/22 22:05 BUN 17 mg/dL (6-20) 01/05/22 22:05 Creatinine 0.7 mg/dL (0.5-0.9) 01/05/22 22:05 GFR Calculation 87.5 mL/min (90-130) L 01/05/22 22:05 Glucose 106 mg/dL (65-115) 01/05/22 22:05 Calculated Osmolality 274 mOsm/kg (285-295) L 01/05/22 22:05 Lactic Acid 1.5 mmol/L (0.5-2.2) 01/05/22 23:20 Calcium 9.3 mg/dL (8.5-10.5) 01/05/22 22:05 Total Bilirubin 0.4 mg/dL (0.15-1.2) 01/05/22 22:05 AST 23 U/L (0-32) 01/05/22 22:05 ALT 25 U/L (0-33) 01/05/22 22:05 Alkaline Phosphatase 197 IU/L (35-105) H 01/05/22 22:05 C-Reactive Protein 188.6 mg/L (0.0-4.9) H 01/05/22 23:20 NT-Pro-B Natriuret Pep 98 pg/mL (0-125) 01/05/22 22:05 Total Protein 6.4 g/dL (6.6-8.7) L 01/05/22 22:05 Albumin 3.2 g/dL (3.5-5.2) L 01/05/22 22:05 Globulin 3.2 g/dL (1.3-4.6) 01/05/22 22:05 Discharge Plan Discharge Patient Disposition: Admitted As Inpatient Admit Provider: Tabitha Mahan Clinical Impression: Hip pain, right, Leukocytosis Condition: Stable Coding Level of Care Code ED District Supervisor for Chg Fwd Exam Comprehensive
[2022-01-05] MEDS: sodium chloride 0.9% 1,000 ML 999 ML IV (23:29)
--- NOTE | 2022-01-05 23:39 | XRR_ITS ---
PROCEDURE INFORMATION: Exam: XR Chest Exam date and time: 01/05/2022 11:44 PM Age: 51 years old Clinical indication: Shortness of breath; Additional info: SOB TECHNIQUE: Imaging protocol: Radiologic exam of the chest. Views: 1 view. COMPARISON: No relevant prior studies available. FINDINGS: Lungs: Visualized portions of the lungs are clear. Pleural spaces: Haziness at the left lung base may represent some left pleural effusion. Heart/Mediastinum: Heart is within normal limits of size. Bones/joints: Unremarkable. XR/XR chest 1V portable [id number] IMPRESSION: Possible left pleural effusion.
--- NOTE | 2022-01-05 23:58 | PM.HP ---
Providers/Chief Complaint Admitting Physician: Tabitha Mahan MD Primary Care Provider: AURELIA Bravo Chief Complaint: BILAT EDEMA History of Present Illness Kristine Barbosa is a 51 year old female with past medical history of chronic steroid use, rheumatoid arthritis, hypertension, hypothyroidism, bilateral hip replacement 15 years ago, bilateral knee replacement Ago presented to the hospital today for increasing bilateral leg pain and swelling worse on the right side. She states that she has not been able to walk and get around the house due to this pain. Pain is about 9 out of 10. She said about 3 weeks ago she was completely fine and walking with a normal person but it has gotten worse and worse to the point where now she cannot move without eliciting pain. She is also been feeling very cold and having chills. She says she has been freezing to at times. Also experienced fever 104 at home. Bilateral pedal edema is new onset started about a week ago. She recently saw Dr. Carlos as an outpatient 2 days ago who placed her on a prednisone taper which she is currently completing. She states that has not helped. She follows at [facility] in [facility]. She follows with Dr. Wong since last 10 years and is not interested in switching practices at this time. Patient is on Rinvoq, leflunomide, prednisone 10 daily chronically. She states she ran out of her Rinvoq about a week and a half ago. In order to obtain a new prescription she has to go through insurance authorization and its a long process. Family is present at bedside. She was given an MRI to do by Dr. Carlos however scheduling is 6 weeks out at this time. ED course: Blood pressure 126/70, respiratory 22, pulse 99, temperature 98.6, saturating 98% on room air. WBC 27,000, CRP 188. Lactic normal. Afebrile here however did have fever at home. CT hip ordered, results pending. Ultrasound bilateral lower extremity negative for DVT. Patient to be admitted. Medications/Allergies Home Medications Medication Instructions Recorded Confirmed Last Taken Type gabapentin 100 mg capsule 100 mg PO DAILY 03/14/20 01/02/22 05/13/20 History hydrochlorothiazide 25 mg tablet 25 mg PO DAILY 03/14/20 01/02/22 05/14/20 History leflunomide 20 mg tablet 20 mg PO DAILY #30 tabs 03/14/20 01/02/22 05/07/20 Rx levothyroxine 175 mcg capsule 175 mcg PO DAILY 03/14/20 01/02/22 05/14/20 History pantoprazole 40 mg tablet,delayed 40 mg PO DAILY #30 tabs 03/14/20 01/02/22 05/13/20 Rx release prednisone 10 mg tablet 10 mg PO DAILY 03/14/20 01/02/22 05/13/20 History tramadol 50 mg tablet 100 mg PO TID 03/14/20 01/02/22 05/13/20 History upadacitinib 15 mg tablet,extended 15 mg PO DAILY #30 tabs 03/14/20 01/02/22 05/07/20 Rx release 24 hr (Rinvoq) mupirocin 2 % topical ointment 1 applic topical BID #22 grams 05/10/20 01/02/22 05/14/20 Rx acetaminophen 500 mg tablet 1,000 mg PO Q8H #60 tabs 05/15/20 01/02/22 Unknown Rx aspirin 325 mg tablet,delayed 325 mg PO DAILY #30 tabs 05/15/20 01/02/22 Unknown Rx release prednisone 20 mg tablet 20 mg PO DAILY 10 days #10 tabs 12/28/21 01/02/22 Unknown Rx cyclobenzaprine 10 mg tablet 10 mg PO TID PRN muscle spasm #90 01/02/22 01/02/22 Unknown Rx tabs prednisone 20 mg tablet 20 mg PO DAILY #15 tabs 01/02/22 01/02/22 Unknown Rx Allergies Allergy/AdvReac Type Severity Reaction Status Date / Time Penicillins Allergy Severe ALGY-Anaphy Verified 01/02/22 15:00 laxis amoxicillin Allergy Unknown Verified 01/05/22 22:24 PFSH Acute PFSH: Medical History Chronic steroid use High risk medication use Hypertension Hypothyroidism Immunization counseling Rheumatoid arthritis Seropositive rheumatoid arthritis of multiple sites Surgical History History of foot surgery x5 right History of hand surgery 2right hand, 1 left hand History of hip replacement, total bilateral Family History Other CAD (coronary artery disease) Cancer Hyperlipidemia Hypertension Denies family history of Rheumatoid arthritis Diabetes Lupus Chronic kidney disease (CKD) Lung disease Stroke Social History Smoking and tobacco status: current some day smoker History of recent travel: No Vitals/I&O/Wt Last Vital Signs Temp 98.6 F 01/05/22 22:24 Pulse 99 01/05/22 22:24 Resp 22 H 01/06/22 01:54 BP 126/78 01/05/22 22:24 Pulse Ox 98 01/06/22 01:54 O2 Del Method 01/05/22 22:24 01/05/22 01/05/22 01/06/22 14:59 22:59 06:59 Intake Total 1000 / 1000 Balance 1000 / 1000 Weight last 48 hrs Weight 90.718 kg Physical Exam Narrative: General: Alert oriented x3, patient seen sitting up in bed appearing comfortable at this time. Any movement of the leg elicits pain. HEENT: Normocephalic, atraumatic, EOMI, breathing normally on room air Cardio: Regular rate rhythm, normal S1-S2, Respiratory: Good bilateral air entry, no wheezes no rhonchi appreciated GI: Abdomen soft, nontender, nondistended, bowel sounds + Behavior: Appropriate and cooperative Extremities: 3+ bilateral pedal edema present, 1+ edema bilateral lower extremities up to knees, Any movement of right leg elicits pain in the hip area. Pain at left and right knee upon movement as well which she attributes to being chronic. No warmth or erythema over right hip. Data : 01/05/22 22:05 01/05/22 22:05 Micro: Microbiology 01/06/22 01:25 Blood Culture - Preliminary Blood SPECIMEN COLLECTED 01/06/22 01:20 Blood Culture - Preliminary Blood SPECIMEN COLLECTED A&P Assessment and plan (1) Hip pain, right: Status: Acute (2) Leukocytosis: Status: Acute (3) Chronic steroid use: Status: Acute (4) Spondylolisthesis at L4-L5 level: Status: Acute (5) Status post left knee replacement: Status: Acute (6) Seropositive rheumatoid arthritis of multiple sites: Status: Acute Plan #Sepsis secondary to possible right septic hip joint #New onset bilateral lower extremity edema #Spondylolisthesis L4-L5 #Rheumatoid arthritis #Chronic steroid use #Hypothyroidism #Hypertension #Nicotine dependence ? Dopplers rule out DVT. ? I will check urinalysis ? Check blood cultures, ESR. CRP 188 ? Check lactic acid ? Placed on vancomycin and aztreonam, patient is allergic to penicillin ? Obtain MRI lumbar spine MRI without contrast, right hip MRI ? Consult IR for ultrasound right hip and possible joint aspiration - Please consult orthopedics in a.m. - Obtain records from prosthetic lab technician office for latest visit. - Continue on prednisone 40 daily at this time Full code DVT prophylaxis: Heparin subcu Attestations Medical Necessity Statement*: Will cross 2 midnight stay for management of right hip pain and sepsis Coding Level of Care Code Acute Closer On for [facility] Fwd Diagnoses Hip pain, right M25.551 Leukocytosis D72.829 Chronic steroid use Spondylolisthesis at L4-L5 level M43.16 Status post left knee replacement Z96.652 Seropositive rheumatoid arthritis of multiple sites M05.79
[2022-01-06] VITALS (9 sets, daily range): BP systolic 109–135; BP diastolic 67–81; PULSE 75–102; RESP 16–22; TEMP 36.6–37.5; O2SAT 91–98
[2022-01-06 00:10] LABS: Lactic Sepsis W/Reflex 1.5 mmol/L (0.5-2.2)
[2022-01-06 00:12] LABS: C Reactive Protein 188.6 mg/L (0.0-4.9)
--- NOTE | 2022-01-06 00:27 | CTR_ITS ---
PROCEDURE INFORMATION: Exam: CT Right Lower Extremity Without Contrast, Hip Exam date and time: 01/06/2022 1:02 AM Age: 51 years old Clinical indication: Pain; Hip; Right; Prior surgery; Surgery date: 6+ months; Surgery type: Replacement of joint with HX of rheumatoid arthritis TECHNIQUE: Imaging protocol: CT of the Right lower extremity without contrast was performed. Exam focused on the hip. Radiation optimization: All CT scans at this facility use at least one of these dose optimization techniques: automated exposure control; mA and/or kV adjustment per patient size (includes targeted exams where dose is matched to clinical indication); or iterative reconstruction. COMPARISON: [place] [id number] 01/05/2022 10:49 PM RADIATION DOSE METRICS: Total DLP (mGy-cm): 734.41 FINDINGS: Bones/joints: Status post bilateral bipolar hip replacements. Degenerative disc disease and vacuum disc phenomenon is seen at L4-S1. There is no evidence for fracture or loosening of the prosthesis. Soft tissues: Normal. CT/CT hip RT wo con* [id number] IMPRESSION: There are no acute osseous findings.
[2022-01-06] MEDS: HYDROmorphone 1 mg/mL INJ 1 mL IVP (01:54)
[2022-01-06] MEDS: aztreonam 2,000 MG in sodium chloride 0.9% (plus) 100 ML 200 MG IV (01:58)
[2022-01-06] MEDS: vancomycin 1,000 MG in sodium chloride 0.9% 250 ML 250 MG IV (02:32)
[2022-01-06 03:25] LABS: Procalcitonin 0.17 ng/mL (0-0.5)
[2022-01-06 03:29] LABS: Thyroid Stimulating Hormone 0.31 uIU/mL (0.27-4.20)
--- NOTE | 2022-01-06 03:35 | PC.PHAR ---
Vancomycin is dosed at 1250mg IVPB every 12 hours to produce a predicted trough level of 16.09 (population based pharmacokinetic analys is). A trough level has been ordered from the lab to be obtained before the fourth dose to confirm and adjust if needed. The Azaxctam is continued at 2gm IVPB every 12 hours.
[2022-01-06] MEDS: heparin 5,000 unit/mL INJ 1 mL 5000 UNIT SUBCUT ×3 (03:39→17:15)
[2022-01-06] MEDS: sodium chloride 0.9% 1,000 ML 75 ML IV (03:39)
[2022-01-06] MEDS: cyclobenzaprine 10 mg Tablet PO (03:46)
[2022-01-06] MEDS: HYDROcodone-acetaminophen 5-325 mg Tablet 1 TAB PO ×4 (03:46→21:53)
[2022-01-06 06:47] LABS: Basophils # 0.1 10^3/uL (0.0-0.1); Basophils % 0.4 %; Eosinophils # 0.1 10^3/uL (0.0-0.8); Eosinophils % 0.3 %; Hematocrit 38.7 % (37.0-47.0); Hemoglobin 12.7 g/dL (11.5-15.3); Lymphocytes # 1.2 10^3/uL (0.8-4.8); Lymphocytes % 4.9 %; Mean Corpuscular HGB Conc 32.8 g/dL (30.0-36.0); Mean Corpuscular Hemoglobin 30.5 pg (28.0-34.0); Mean Corpuscular Volume 92.8 fl (81-99); Mean Platelet Volume 11.6 fL (7.4-10.4); Monocytes # 1.6 10^3/uL (0.2-0.9); Neutrophils # 20.15 10^3/uL (1.8-7.7); Neutrophils % 85.7 %; Nucleated Red Blood Cells % 0 %; Platelet Count 309 10^3/cmm (130-400); Red Blood Count 4.17 10^6/uL (4.1-5.3); Red Cell Distribution Width 13.2 % (12.1-15.1); White Blood Count 23.5 10^3/uL (4.0-10.0)
[2022-01-06 07:38] LABS: Alanine Aminotransferase 21 U/L (0-33); Albumin Level 1.9 g/dL (3.5-5.2); Alkaline Phosphatase 145 IU/L (35-105); Anion Gap 18.4 (5-19); Aspartate Amino Transferase 18 U/L (0-32); Blood Urea Nitrogen 15 mg/dL (6-20); Calcium 8.5 mg/dL (8.5-10.5); Carbon Dioxide 20 mmol/L (22-29); Chloride 97 mmol/L (98-107); Globulin 4.1 g/dL (1.3-4.6); Glomerular Filtration Rate 104.6 mL/min (90-130); Glucose 101 mg/dL (65-115); Magnesium 1.7 mg/dL (1.7-2.3); Osmolality Calculated 277 mOsm/kg (285-295); Sodium 133 mmol/L (136-145); Total Bilirubin 0.4 mg/dL (0.15-1.2)
[2022-01-06 07:54] LABS: Potassium 2.4 mmol/L (3.5-5.1)
[2022-01-06 08:16] LABS: Erythrocyte Sedimentation Rate 64 mm/hr (0-15)
--- NOTE | 2022-01-06 08:31 | USCV_ITS ---
Kristine Barbosa Age: 51 Gender: F : 1970 Exam Date: 01/06/2022 09:09 Ordering Phys: Gilbert Telles MD Technologist: Kameron Bledsoe Exam Location: [facility] [place] Indication: lower extremity edema BP: 113 / 75 HR: 94 Rhythm: Sinus Technical Quality: Adequate MEASUREMENTS (Male / Female) Normal Values 2D ECHO LV Diastolic Diameter PLAX 3.6 cm 4.2 - 5.9 / 3.9 - 5.3 cm LV Systolic Diameter PLAX 2.2 cm IVS Diastolic Thickness 1.0 cm 0.6 - 1.0 / 0.6 - 0.9 cm IVS Systolic Thickness 1.2 cm LVPW Diastolic Thickness 1.1 cm 0.6 - 1.0 / 0.6 - 0.9 cm LVPW Systolic Thickness 1.4 cm LVOT Diameter 2.0 cm LV Ejection Fraction 2D Teich 68.9 % LA Diameter 3.4 cm LA Width 3.0 cm LA Height 4.5 cm RA Width 2.9 cm RA Height 4.3 cm Aorta at Sinotubular Diameter 2.4 cm M-MODE Aortic Annulus Diameter 2.4 cm LA Ao Ratio MM 1.3 MV E Point Septal Separation 0.6 cm DOPPLER TR Peak Velocity 363.3 cm/s TR Peak Gradient 52.8 mmHg TR Mean Velocity 297.6 cm/s TR Mean Gradient 36.0 mmHg TR Velocity Time Integral 113.0 cm RV Acceleration Time 0.1 s RV Ejection Time 0.3 s RV AcT/ET 0.3 FINDINGS Left Ventricle Left ventricle is normal size. LV systolic function is normal with EF of 60 to 65%. No regional wall motion abnormalities are seen. Right Ventricle Grossly normal Right Atrium Normal in size Left Atrium Normal in size Mitral Valve Grossly normal Aortic Valve Not visualized. Doppler exam not performed Tricuspid Valve Mild tricuspid regurgitation. Insufficient TR jet to calculate RVSP. Pulmonic Valve Not visualized Pericardium Normal Aorta Normal in size IVC CONCLUSIONS LV systolic function is normal with EF of 60 to 65%. Mild tricuspid regurgitation. Valves are not well visualized. No comparison studies are available Beltran Trejo MD (Electronically Signed) Final Date: 06 January 2022 18:42 S
[2022-01-06] MEDS: lidocaine 1% 5 ML in potassium chloride premix 100 ML 25 ML IV (08:32)
[2022-01-06] MEDS: pantoprazole DR 40 mg Tablet PO (08:35)
[2022-01-06] MEDS: aspirin 325 mg EC Tablet PO (08:35)
[2022-01-06] MEDS: levothyroxine 175 mcg Tablet PO (08:35)
[2022-01-06] MEDS: docusate sodium 100 mg Capsule PO ×2 (08:36→17:15)
[2022-01-06] MEDS: predniSONE 10 mg Tablet 40 MG PO (08:36)
--- NOTE | 2022-01-06 08:59 | MR_ITS ---
WS: [id number] MRI RIGHT HIP NONCONTRAST TECHNIQUE: Axial T1, axial T2 fat sat, coronal T1, coronal STIR, sagittal T2 fat sat, sagittal T1, an d sagittal T2 fat sat, of both hips. CLINICAL INFORMATION: septic joint COMPARISON: None. FINDINGS: Prior postoperative changes RIGHT DEMARCO. Lobulated fluid collections in the gluteus musculature about t he RIGHT DEMARCO. This is mainly extra-articular extends posteriorly about the acetabulum and extends pos terior and laterally along the proximal femur. This extends superiorly into the gluteus musculature a long the iliac wing. Frey catheter. Bony images about the RIGHT hip are degraded due to susceptibility artifact. Primary fluid collection along the acetabulum and femoral neck measures approximately 6.4 x 3.3 x 6.9 CM. MR/MR hip RT wo con* [id number] IMPRESSION: 1. Prior postoperative changes RIGHT DEMARCO. 2. Lobulated fluid collection gluteus musculature about the RIGHT DEMARCO is nonsp ecific but suspicious for infection. This may be due to postoperative seroma or fluid collection if recent surgery. Recommend correlation with clinical histor y. 3. Bony images are degraded due to susceptibility artifact.
--- NOTE | 2022-01-06 09:40 | P.PN_ITS ---
Subjective Subjective: This morning patient is complaining of pain in her right hip, pain radiating below her left knee, left wrist and fingers I did tell her that this looks like rheumatoid arthritis flareup I will increase her steroid regimen we will speak with associate loan officer She should get her home medications Rinvoq and leflunomide I will also request MRI of her hip to rule out septic joint however her CT is unremarkable Vitals/I&O/Wt Last Vital Signs Temp 99.5 F 01/06/22 04:00 Pulse 93 01/06/22 08:00 Resp 17 01/06/22 08:00 BP 113/75 01/06/22 08:00 Pulse Ox 94 01/06/22 08:00 O2 Del Method 01/06/22 02:46 01/05/22 01/06/22 01/06/22 22:59 06:59 14:59 Intake Total 1350 / 1350 Output Total 0 / 0 Balance 1350 / 1350 Weight last 48 hrs Weight 90.718 kg Physical Exam Narrative: Patient has significant edema of her lower extremity Polyarticular arthralgia No redness erythema, she has tenderness to palpation on right greater trochanter area No erythema She is complaining of pain in multiple joints S1, S2 She is on room air Nonfocal neuro exam Data : 01/06/22 06:30 01/06/22 06:30 Micro: Microbiology 01/06/22 01:25 Blood Culture - Preliminary Blood SPECIMEN COLLECTED 01/06/22 01:20 Blood Culture - Preliminary Blood SPECIMEN COLLECTED A&P Assessment and plan (1) Rheumatoid arthritis flare: Status: Acute (2) Hip pain, right: Status: Acute (3) Leukocytosis: Status: Acute (4) Spondylolisthesis at L4-L5 level: Status: Acute (5) Chronic steroid use: Status: Acute (6) Seropositive rheumatoid arthritis of multiple sites: Status: Acute Plan Acute flare of rheumatoid arthritis Polyarticular arthralgia I have started on IV steroids Rule out avascular necrosis I have requested a hip MRI we will give her opioids PT evaluation Will asked Dr. Manriquez to evaluate her as well I would continue her Rinvoq and leflunomide along IV steroids Steroid related fracture?, Septic joint? If CT is unremarkable Lower extremity edema, rule out CHF, requested echo Patient was completely function 2 weeks ago her symptoms started as soon as she tapered down her steroids Patient is full code Currently on heparin for DVT prophylaxis Continue IV antibiotics Her associate loan officer is in [place] I did speak with our local associate loan officer who agreed with MRI hip to rule out avascular necrosis, IV steroids, inpatient opioids, PT eval Attestations Medical Necessity Statement*: Continue medical management Time Spent in Patient Care: 30 Coding Level of Care Code Acute Director Of Student Life for g Fwd Diagnoses Rheumatoid arthritis flare M06.9 Hip pain, right M25.551 Leukocytosis D72.829 Spondylolisthesis at L4-L5 level M43.16 Chronic steroid use Seropositive rheumatoid arthritis of multiple sites M05.79
[2022-01-06 09:41] LABS: Glucose Urine UA Norm (Normal); Protein Urine Neg (Negative); Specific Gravity, Urine 1.015 (1.005-1.030); Urine Appearance Hazy (CLEAR); Urine Color Yellow (Yellow); pH Urine 6 (5-7)
[2022-01-06 09:42] LABS: Add Urine Culture? Yes; Add Urine Microscopic? YES; Bacteria Urine 2+ /hpf; Bilirubin Urine Neg (Negative); Blood Urine 3+ (Negative); Ketones Urine Negative (Negative); Leukocyte Esterase Urine Trace (Negative); Nitrate Urine Positive (Negative); RBC Urine 25-40 /hpf (0-2); Squamous Epithelial Cell Urine 0-4 /hpf (0-5); Urobilinogen Urine Norm (Negative); WBC Urine 15-25 /hpf (0-5)
[2022-01-06] MEDS: HYDROmorphone 1 mg/mL INJ 1 mL 0.4 MG IVP ×3 (09:47→20:26)
[2022-01-06] MEDS: vancomycin 1,250 MG/250 ML PIGGYBACK 250 MG IV (14:53)
[2022-01-06] MEDS: aztreonam 1,000 MG in sodium chloride 0.9% (plus) 50 ML 100 MG IV (17:15)
[2022-01-06 20:26] LABS: Platelet Count 309 10^3/cmm (130-400)
[2022-01-06] MEDS: sennosides 8.6 mg Tablet 17.2 MG PO (20:27)
[2022-01-06 20:35] LABS: INR 1.18 (0.8-1.2)
[2022-01-06 20:36] LABS: Partial Thromboplastin Time 29.5 SECONDS (23.9-36.7)
--- NOTE | 2022-01-06 20:57 | PC.NURSE ---
Patient was turned to assess skin and clean smear of bowel and change absorbant pad. Patient very tearful upon being turned due to pain. Unable to turn q2 hours.
[2022-01-06 21:09] LABS: Fibrinogen 1226 mg/dL (174-498)
[2022-01-07] VITALS (11 sets, daily range): BP systolic 97–130; BP diastolic 58–75; PULSE 68–79; RESP 16–18; TEMP 36.7–36.8; O2SAT 94–98
--- NOTE | 2022-01-07 | US_ITS ---
WS: [id number] INDICATION: Ultrasound-guided drain placement RIGHT hip TECHNIQUE: The procedure including risks, benefits, and complications were discussed with the patient who agreed to proceed. Patient was prepped and draped in usual sterile fashion. After 1% lidocaine u sing ultrasound guidance 5 cc of purulent fluid was aspirated. Next, guidewire was advanced through t he existing catheter. Catheter was removed and tract was dilated. Subsequently 8.5 Kazakh pigtail cat heter was advanced into the abscess cavity. Drain was connected to accordion drainage bag. No immedi ate complications. Fluid was sent for further analysis. US/[place] [id number] IMPRESSION: 1. Uncomplicated pigtail drain placement abscess RIGHT hip 2. Recommend drain flushing 2 times per day with 8-10cc normal saline
[2022-01-07] MEDS: vancomycin 1,250 MG/250 ML PIGGYBACK 250 MG IV (01:06)
[2022-01-07] MEDS: HYDROmorphone 1 mg/mL INJ 1 mL 0.4 MG IVP ×4 (01:06→20:16)
[2022-01-07] MEDS: HYDROcodone-acetaminophen 5-325 mg Tablet 1 TAB PO ×2 (03:53→14:22)
[2022-01-07] MEDS: aztreonam 1,000 MG in sodium chloride 0.9% (plus) 50 ML 100 MG IV ×2 (03:54→16:45)
[2022-01-07 05:21] LABS: Basophils # 0.1 10^3/uL (0.0-0.1); Basophils % 0.2 %; Hematocrit 36.1 % (37.0-47.0); Lymphocytes # 0.7 10^3/uL (0.8-4.8); Lymphocytes % 2.5 %; Mean Corpuscular HGB Conc 33.2 g/dL (30.0-36.0); Mean Corpuscular Hemoglobin 30.3 pg (28.0-34.0); Mean Corpuscular Volume 91.2 fl (81-99); Mean Platelet Volume 11.5 fL (7.4-10.4); Monocytes # 1.1 10^3/uL (0.2-0.9); Neutrophils # 24.69 10^3/uL (1.8-7.7); Neutrophils % 90.7 %; Nucleated Red Blood Cells % 0 %; Platelet Count 310 10^3/cmm (130-400); Red Blood Count 3.96 10^6/uL (4.1-5.3); Red Cell Distribution Width 13.1 % (12.1-15.1); White Blood Count 27.2 10^3/uL (4.0-10.0)
[2022-01-07 05:44] LABS: Alanine Aminotransferase 28 U/L (0-33); Alkaline Phosphatase 169 IU/L (35-105); Anion Gap 16.2 (5-19); Aspartate Amino Transferase 39 U/L (0-32); Blood Urea Nitrogen 14 mg/dL (6-20); Calcium 8.7 mg/dL (8.5-10.5); Carbon Dioxide 23 mmol/L (22-29); Chloride 99 mmol/L (98-107); Globulin 3.9 g/dL (1.3-4.6); Glomerular Filtration Rate 129.1 mL/min (90-130); Glucose 133 mg/dL (65-115); Osmolality Calculated 282 mOsm/kg (285-295); Potassium 3.2 mmol/L (3.5-5.1); Sodium 135 mmol/L (136-145); Total Bilirubin 0.3 mg/dL (0.15-1.2); Total Protein 5.9 g/dL (6.6-8.7)
[2022-01-07] MEDS: docusate sodium 100 mg Capsule PO ×2 (08:27→17:15)
[2022-01-07] MEDS: pantoprazole DR 40 mg Tablet PO (08:27)
[2022-01-07] MEDS: levothyroxine 175 mcg Tablet PO (08:27)
--- NOTE | 2022-01-07 08:56 | PC.NURSE ---
Held aspirin due to fluid aspiration procedure today and patient NPO. Called Radiology to see if I should hold or give. Will call back and give a time of procedure.
--- NOTE | 2022-01-07 11:10 | US_ITS ---
WS: [id number] INDICATION: Ultrasound-guided drain placement RIGHT hip TECHNIQUE: The procedure including risks, benefits, and complications were discussed with the patient who agreed to proceed. Patient was prepped and draped in usual sterile fashion. After 1% lidocaine u sing ultrasound guidance 5 cc of purulent fluid was aspirated. Next, guidewire was advanced through t he existing catheter. Catheter was removed and tract was dilated. Subsequently 8.5 Persian pigtail cat heter was advanced into the abscess cavity. Drain was connected to accordion drainage bag. No immedi ate complications. Fluid was sent for further analysis.
--- NOTE | 2022-01-07 11:18 | P.PN_ITS ---
Subjective Subjective: Patient could not sleep last night because of her pain This morning she has been kept n.p.o. for ultrasound-guided I&D for her extra- articular right hip abscess formation Positive blood cultures, urine culture reviewed We will repeat blood cultures tomorrow She has been afebrile Worsening leukocytosis related to steroid We have to wait for her finalized blood culture report and look photosensitivity Patient is stating that she was diagnosed with MRSA infection of her foot she had multiple surgeries now there is no opening of any wound, Vitals/I&O/Wt Last Vital Signs Temp 98.0 F 01/07/22 08:00 Pulse 68 01/07/22 08:00 Resp 17 01/07/22 08:00 BP 105/68 01/07/22 08:00 Pulse Ox 95 01/07/22 08:00 O2 Del Method 01/07/22 08:00 01/06/22 01/07/22 01/07/22 22:59 06:59 14:59 Intake Total 1435 / 1660 300 / 1960 Output Total 0 / 0 1999 Balance 1435 / 1660 -1700 / -40 Weight last 48 hrs Weight 90.718 kg Physical Exam Narrative: This morning patient was laying supine No active pain No opening of wound of her right foot Right hip rubber press tender No active chest pain Saturating well on room air Awake and alert Nonfocal neuro exam N.p.o. Abdomen soft Urinary Catheter Management: Frey: Cath Placed During This Visit: yes Reason for Continuing Indwelling Catheter: Other Urinary Catheter Date of Insertion: 01/06/22 Urinary Catheter Time of Insertion: 09:00 Data : 01/07/22 05:06 01/07/22 05:06 Micro: Microbiology 01/06/22 09:01 Urine Culture - Preliminary Urine,Clean Catch Staphylococcus species 01/06/22 01:25 Blood Culture - Preliminary Blood NEGATIVE TO DATE 01/06/22 01:20 Blood Culture - Preliminary Blood A&P Assessment and plan (1) Rheumatoid arthritis flare: Status: Acute (2) Hip pain, right: Status: Acute (3) Leukocytosis: Status: Acute (4) Spondylolisthesis at L4-L5 level: Status: Acute (5) Chronic steroid use: Status: Acute (6) Seropositive rheumatoid arthritis of multiple sites: Status: Acute (7) High risk medication use: Status: Acute Plan Acute flare of rheumatoid arthritis Pain slightly better as compared to yesterday on IV steroids Leukocytosis could be related to use of steroids She is afebrile Blood culture positive, urine culture positive Repeat blood cultures tomorrow I would not call her septic at this point I&D to be done today Dr. Otto stating that her abscess or fluid collection is extra articular, I have requested IR for ultrasound-guided drainage She has been n.p.o. DVT prophylaxis on hold Lower extremity edema secondary to sedentary lifestyle, no signs of DVT, preserved ejection fraction without active heart failure She is immunocompromised, currently on immunomodulators and high-dose steroids Continue IV antibiotics Once her culture report is finalized we will make further plan for PICC line placement and 6 weeks of antibiotics for bacteremia Source has not been identified, her hip surgery, knee surgery was done long time ago, no recent intra-articular steroid injections Full code Start diet after her I&D today Continue current pain management regime along bowel regimen Attestations Medical Necessity Statement*: Continue medical management Time Spent in Patient Care: 30 Coding Level of Care Code Acute Video Tape Editor for Paolo Garcias Diagnoses Rheumatoid arthritis flare M06.9 Hip pain, right M25.551 Leukocytosis D72.829 Spondylolisthesis at L4-L5 level M43.16 Chronic steroid use Seropositive rheumatoid arthritis of multiple sites M05.79 High risk medication use Z79.899
[2022-01-07 13:59] LABS: Vancomycin Trough 8.4 ug/mL (10-15)
[2022-01-07] MEDS: cyclobenzaprine 10 mg Tablet PO ×2 (14:22→20:27)
[2022-01-07] MEDS: vancomycin 1,500 MG/300 ML PIGGYBACK 200 MG IV (14:23)
--- NOTE | 2022-01-07 14:51 | PC.OT ---
OT EVAL ON HOLD DUE TO I&D TODAY. WILL ATTEMPT AT A LATER DATE.
--- NOTE | 2022-01-07 18:42 | PC.NURSE ---
Dr. Telles notified of patients pain level and current medications not working. Dilaudid increased to q3H and Hydorcodone increased to 10-325mg q6h.
[2022-01-07] MEDS: HYDROcodone-acetaminophen 10-325 mg Tablet 1 TAB PO (18:47)
[2022-01-07 18:49] LABS: Apprearance, Body Fluid TURBID; Color, Body Fluid PALE YELLOW
[2022-01-07] MEDS: enoxaparin 40 mg/0.4 mL Syringe SUBCUT (20:21)
[2022-01-08] VITALS (8 sets, daily range): BP systolic 102–123; BP diastolic 63–77; PULSE 75–83; RESP 16–18; TEMP 36.8–37.2; O2SAT 91–98
[2022-01-08] MEDS: HYDROmorphone 1 mg/mL INJ 1 mL 0.4 MG IVP ×2 (00:02→07:20)
[2022-01-08] MEDS: vancomycin 1,500 MG/300 ML PIGGYBACK 200 MG IV ×2 (02:48→14:37)
[2022-01-08 02:51] LABS: Basophils # 0.1 10^3/uL (0.0-0.1); Basophils % 0.2 %; Eosinophils # 0.1 10^3/uL (0.0-0.8); Eosinophils % 0.2 %; Hematocrit 36.1 % (37.0-47.0); Hemoglobin 11.9 g/dL (11.5-15.3); Lymphocytes # 1.8 10^3/uL (0.8-4.8); Lymphocytes % 6.7 %; Mean Corpuscular Hemoglobin 30.4 pg (28.0-34.0); Mean Corpuscular Volume 92.1 fl (81-99); Mean Platelet Volume 11.6 fL (7.4-10.4); Monocytes # 1.4 10^3/uL (0.2-0.9); Monocytes % 5.4 %; Neutrophils # 22.51 10^3/uL (1.8-7.7); Neutrophils % 86.2 %; Nucleated Red Blood Cells % 0 %; Platelet Count 349 10^3/cmm (130-400); Red Blood Count 3.92 10^6/uL (4.1-5.3); Red Cell Distribution Width 13.2 % (12.1-15.1); White Blood Count 26.1 10^3/uL (4.0-10.0)
[2022-01-08] MEDS: HYDROcodone-acetaminophen 10-325 mg Tablet 1 TAB PO ×4 (02:57→18:08)
[2022-01-08 03:19] LABS: Alanine Aminotransferase 21 U/L (0-33); Alkaline Phosphatase 154 IU/L (35-105); Blood Urea Nitrogen 15 mg/dL (6-20); Calcium 8.4 mg/dL (8.5-10.5); Carbon Dioxide 25 mmol/L (22-29); Chloride 102 mmol/L (98-107); Globulin 3.8 g/dL (1.3-4.6); Glomerular Filtration Rate 129.1 mL/min (90-130); Glucose 101 mg/dL (65-115); Osmolality Calculated 285 mOsm/kg (285-295); Sodium 137 mmol/L (136-145); Total Bilirubin 0.2 mg/dL (0.15-1.2); Total Protein 5.8 g/dL (6.6-8.7)
[2022-01-08 03:20] LABS: Procalcitonin 0.19 ng/mL (0-0.5)
[2022-01-08 03:32] LABS: Anion Gap 13.2 (5-19); Aspartate Amino Transferase 35 U/L (0-32); Potassium 3.2 mmol/L (3.5-5.1)
--- NOTE | 2022-01-08 04:38 | NUR.SHIFT ---
Pt has not slept much tonight, Pain has been consistent for her, treated her per JUL, call light in reach, bed low and locked
[2022-01-08] MEDS: aztreonam 1,000 MG in sodium chloride 0.9% (plus) 50 ML 100 MG IV (05:44)
[2022-01-08] MEDS: cyclobenzaprine 10 mg Tablet PO (07:32)
[2022-01-08] MEDS: pantoprazole DR 40 mg Tablet PO (09:48)
[2022-01-08] MEDS: levothyroxine 175 mcg Tablet PO (09:48)
[2022-01-08] MEDS: docusate sodium 100 mg Capsule PO ×2 (09:48→18:08)
[2022-01-08] MEDS: aspirin 81 mg EC Tablet PO (09:48)
[2022-01-08] MEDS: potassium chloride ER 20 mEq Tablet 40 MEQ PO (09:53)
[2022-01-08] MEDS: ketorolac 30 mg/mL INJ 15 MG IVP (10:05)
[2022-01-08] MEDS: heparin 5,000 unit/mL INJ 1 mL 5000 UNIT SUBCUT (10:06)
--- NOTE | 2022-01-08 11:28 | P.PN_ITS ---
Subjective Subjective: This morning patient was complaining of pain all over when asked her how many times that she asked for pain medication last night she said she never knew that her pain meds were on as needed basis I did clarify with her that I am reluctant to schedule her pain medications to avoid overdose, I also explained her that her IV steroids are on board and she is being treated for rheumatoid arthritis flare, she will need to wait for at least 48 hours before getting a PICC line for possible MRSA bacteremia, likely source is her left foot open wound with purulent drainage and there is also pus filled blister, I have requested Dr. Herrera to declan her blister today Her family was at the bedside I will discontinue aztreonam Continue vancomycin Patient is stating that she has PTSD from PICC line her son at 10 years old got a PICC line which had a lot of complications Vitals/I&O/Wt Last Vital Signs Temp 99.0 F 01/08/22 11:05 Pulse 82 01/08/22 11:05 Resp 18 01/08/22 11:05 BP 102/67 01/08/22 11:05 Pulse Ox 91 01/08/22 11:05 O2 Del Method 01/08/22 11:05 01/07/22 01/08/22 01/08/22 22:59 06:59 14:59 Intake Total 350 / 470 120 / 120 Output Total 800 / 800 600 / 1400 Balance -450 / -330 -600 / -930 120 / 120 Physical Exam Narrative: Patient is in tears because of her pain Multiple joint and pain without erythema Bowel sounds present, hyperactive No rigidity guarding or peritonitis Awake and alert Emotionally labile Family at the bedside No audible stridor or wheezing No active chest pain Hemodynamically stable Purulent blister left foot Open wound with abscess below her left ankle Bilateral lower extremity edema 3+ Currently on room air Urinary Catheter Management: Frey: Cath Placed During This Visit: yes Reason for Continuing Indwelling Catheter: Other Urinary Catheter Date of Insertion: 01/06/22 Urinary Catheter Time of Insertion: 09:00 Data : 01/08/22 02:16 01/08/22 02:16 Micro: Microbiology 01/08/22 02:16 Blood Culture - Preliminary Blood SPECIMEN COLLECTED 01/08/22 02:14 Blood Culture - Preliminary Blood SPECIMEN COLLECTED 01/06/22 01:20 Blood Culture - Preliminary Blood Staphylococcus aureus 01/06/22 09:01 Urine Culture - Preliminary Urine,Clean Catch Staphylococcus species A&P Assessment and plan (1) Rheumatoid arthritis flare: Status: Acute (2) Hip pain, right: Status: Acute (3) Leukocytosis: Status: Acute (4) Chronic steroid use: Status: Acute (5) Immunization counseling: Status: Acute (6) Blister: Status: Acute (7) Cellulitis of left ankle: Status: Acute (8) Bacteremia: Status: Acute (9) Status post incision and drainage: Status: Acute Plan Acute flare of rheumatoid arthritis Continue high-dose steroids She started experiencing more pain when I de-escalated her IV steroids yesterday Continue 40 mg IV push every 12 hours for now I did explain all the potential complications of high-dose steroids including psychosis, gastric ulcer, hypertension, diabetes, avascular necrosis, ost eoporosis, Right hip abscess No recent trauma or IV injections Status post I&D by the IR on 01/07 Purulent drainage Minimal drainage, once there is no output then we will remove the drain, will touch base with Dr. Gunter Bacteremia with Staphylococcus species Previous history of MRSA of right foot Her left ankle has purulent cellulitis Purulent blister lateral border Requested Dr. Herrera to evaluate her today who has graciously excepted her to see her during lunchtime Repeat blood cultures today once her bacteremia has cleared we will place PICC line and this most likely will take place on Thursday She will need home health services, 6 to 8 weeks of IV vancomycin Patient stating that she has PTSD to PICC line placement, I will give her Xanax and opioids before the procedure Lower extremity edema No signs of heart failure Likely related to bedbound state Compression devices, Compression wraps She is full code GI prophylaxis Protonix Continue levothyroxine Strong bowel regimen along opioids Attestations Medical Necessity Statement*: Continue medical management Time Spent in Patient Care: 30 Coding Level of Care Code Acute Investment Manager for Paolo Fwanahi Diagnoses Rheumatoid arthritis flare M06.9 Hip pain, right M25.551 Leukocytosis D72.829 Chronic steroid use Immunization counseling Z71.89 Blister T14.8XXA Cellulitis of left ankle L03.116 Bacteremia R78.81 Status post incision and drainage Z98.890
--- NOTE | 2022-01-08 11:32 | XRR_ITS ---
PROCEDURE INFORMATION: Exam: XR Left Ankle Exam date and time: 01/08/2022 11:43 AM Age: 51 years old Clinical indication: Condition or disease; Other: Purulent blister; Prior surgery; Surgery type: Several diabetic mass removals PT stated; Patient HX: Diabetic wound on left lateral foot TECHNIQUE: Imaging protocol: Radiologic exam of the Left ankle. Views: 1 or 2 views. Total images: 336 COMPARISON: [place] [id number] 01/05/2022 10:49 PM FINDINGS: Bones/joints: No acute fracture nor subluxation. No osseous erosion nor periosteal reaction. An enthesophyte is noted at the Achilles tendon insertion site. Soft tissues: Anterior and lateral soft tissue swelling is evident. XR/XR ankle LT 2V [id number] IMPRESSION: 1. Anterior and lateral soft tissue swelling is evident. 2. No acute osseous pathology.
--- NOTE | 2022-01-08 11:37 | XRR_ITS ---
PROCEDURE INFORMATION: Exam: XR Left Foot Exam date and time: 01/08/2022 11:43 AM Age: 51 years old Clinical indication: Condition or disease; Other: Diabetic wound on left lateral foot; Prior surgery; Surgery type: Several diabetic mass removals PT stated; Additional info: Wound lateral left foot TECHNIQUE: Imaging protocol: Radiologic exam of the Left foot. Views: 3 or more views. Total images: 2 COMPARISON: [place] [id number] 01/05/2022 10:49 PM FINDINGS: Bones/joints: An enthesophyte is noted at the Achilles tendon insertion site. No acute fracture nor subluxation. No osseous erosion nor periosteal reaction. Soft tissues: Soft tissue swelling noted along the lateral aspect of the forefoot. XR/XR foot LT min 3V* [id number] IMPRESSION: 1. Soft tissue swelling noted along the lateral aspect of the forefoot. 2. No acute osseous pathology.
--- NOTE | 2022-01-08 12:39 | PM.CONSULT ---
Providers/Reason For Consult Consulting Physician/Specialty*: Panda Herrera D.P.M. Reason for Consult*: Abscess left foot Attending Physician: Gilbert Telles MD Primary Care Provider: AURELIA Bravo History of Present Illness History of Present Illness Kristine Barbosa is a 51 year old female admitted to the hospital service for sepsis. Found of abscess right gluteal region has drain in place. I was consulted for concern for possible abscess at the left foot. Patient relates to having increased pain in her left foot over the course of the past 2 weeks, denies stepping on any foreign object or puncture wound. She thought that it was a rheumatoid nodule that was causing her pain. She denies being diabetic. She is immunosuppressed secondary to medication. History of bilateral foot surgeries secondary to rheumatoid arthritis these were done at [facility] in [place]. Patient denies any subjective nausea, vomiting, fever, chills, shortness of breath or chest pain. Review of Systems General: Reports: 10 or more systems reviewed and unremarkable except in HPI and below Const: Denies: fever(s) or chills Eyes: Denies: change in vision Card: Denies: chest pain or palpitations Resp: Denies: dyspnea or productive cough GI: Denies: abdominal pain, nausea or vomiting : Denies: flank pain Musc: Reports: extremity swelling, joint stiffness and deformity Skin/Breast: Reports: erythema, sores, changes in skin color, dry skin, nail changes and change in hair Neuro: Reports: difficulty walking Psych: Denies: suicidal ideation Endo: Denies: change in body appearance Malick/Lymph: Denies: tender lymph nodes Medications/Allergies Home Medications Medication Instructions Recorded Confirmed Last Taken Type hydrochlorothiazide 25 mg tablet 25 mg PO DAILY 03/14/20 01/06/22 01/05/22 12:00 History levothyroxine 175 mcg capsule 175 mcg PO DAILY 03/14/20 01/06/22 01/05/22 10:00 History tramadol 50 mg tablet 100 mg PO TID PRN Pain 03/14/20 01/06/22 01/05/22 18:00 History cyclobenzaprine 10 mg tablet 10 mg PO TID PRN muscle spasm #90 01/02/22 01/06/22 01/05/22 08:00 Rx tabs ibuprofen 800 mg tablet 800 mg PO Q4H PRN Pain 01/06/22 01/06/22 01/05/22 18:00 History prednisone 10 mg tablet 10 mg PO DAILY 01/06/22 01/06/22 01/05/22 10:00 History leflunomide 20 mg tablet 20 mg PO DAILY #30 tabs 01/08/22 Unknown Rx upadacitinib 15 mg tablet,extended 15 mg PO DAILY #30 tabs 01/08/22 Unknown Rx release 24 hr (Rinvoq) Allergies Allergy/AdvReac Type Severity Reaction Status Date / Time Penicillins Allergy Severe ALGY-Anaphy Verified 01/02/22 15:00 laxis amoxicillin Allergy Unknown Verified 01/05/22 22:24 IV RA Meds Allergy ALGY-Anaphy Uncoded 01/06/22 03:10 laxis Current Medications Generic Name Dose Route Start Last Admin Trade Name Freq PRN Reason Stop Dose Admin Aspirin 81 mg 01/07/22 09:00 01/08/22 09:48 Aspirin 81 Mg Ec Tablet PO 81 mg DAILY MICHELLE Administration Cyclobenzaprine HCl 10 mg 01/06/22 02:32 01/08/22 07:32 Cyclobenzaprine 10 Mg Tablet PO 10 mg TID PRN Administration muscle spasm Docusate Sodium 100 mg 01/06/22 09:00 01/08/22 09:48 Docusate Sodium 100 Mg Capsule PO 100 mg BID MICHELLE Administration Enoxaparin Sodium 40 mg 01/07/22 21:00 01/07/22 20:21 Enoxaparin 40 Mg/0.4 Ml Syringe SUBCUT 40 mg Q24H MICHELLE Administration Hydromorphone HCl 0.4 mg 01/07/22 18:36 01/08/22 07:20 Hydromorphone 1 Mg/Ml Inj 1 Ml IVP 0.4 mg Q3H PRN Administration pain Vancomycin/PEG/NADA/Lysine/Water 1,500 mg in 300 mls @ 200 mls/hr 01/07/22 14:30 01/08/22 02:48 Vancocin IV 200 mls/hr Q12H MICHELLE Administration Levothyroxine Sodium 175 mcg 01/06/22 09:00 01/08/22 09:48 Levothyroxine 175 Mcg Tablet PO 175 mcg DAILY MICHELLE Administration Methylprednisolone Sodium Succinate 40 mg 01/08/22 08:30 01/08/22 10:05 Methylprednisolone Sod Succ 40 Mg/Ml Inj IVP 40 mg Q12H MICHELLE Administration Pantoprazole Sodium 40 mg 01/06/22 09:00 01/08/22 09:[address] 40 Mg Tablet PO 40 mg DAILY MICHELLE Administration Senna 17.2 mg 01/06/22 21:00 01/08/22 01:12 Sennosides 8.6 Mg Tablet PO Not Given BEDTIME MICHELLE PFSH Acute PFSH: Medical History Chronic steroid use High risk medication use Hypertension Hypothyroidism Immunization counseling Rheumatoid arthritis Seropositive rheumatoid arthritis of multiple sites Surgical History History of foot surgery x5 right History of hand surgery 2right hand, 1 left hand History of hip replacement, total bilateral Family History Other CAD (coronary artery disease) Cancer Hyperlipidemia Hypertension Denies family history of Rheumatoid arthritis Diabetes Lupus Chronic kidney disease (CKD) Lung disease Stroke Social History Smoking and tobacco status: current some day smoker History of recent travel: No Vitals/I&O/Wt Last Vital Signs Temp 99.0 F 01/08/22 11:05 Pulse 82 01/08/22 11:05 Resp 18 01/08/22 11:05 BP 102/67 01/08/22 11:05 Pulse Ox 91 01/08/22 11:05 O2 Del Method 01/08/22 11:05 01/07/22 01/08/22 01/08/22 22:59 06:59 14:59 Intake Total 350 / 470 120 / 120 Output Total 800 / 800 600 / 1400 Balance -450 / -330 -600 / -930 120 / 120 Physical Exam Narrative: GENERAL: Patient is alert and oriented ?3 and in no acute distress. The following is a focused bilateral lower extremity exam. VASCULAR: Dorsalis pedis palpable +2 bilaterally, posterior tibial arteries +2. Capillary refill time less than 3 seconds to the distal hallux bilaterally. Calf is supple and nontender proximally and distally. Focal edema to the left lateral forefoot. NEUROLOGICAL: Protective sensation intact to light touch. DERMATOLOGICAL: Fluid-filled bullae to the dorsal lateral aspect of the left fifth metatarsal phalangeal joint as well as hyperkeratotic lesion plantar aspect of left fifth metatarsal phalangeal joint with hemorrhaging, fluctuant on palpation. Surrounding erythema. There is a small linear wound at the left lateral ankle along the course of the peroneals with localized erythema. MUSCULOSKELETAL: Pain to palpation left fifth metatarsal phalangeal joint and left lateral forefoot coursing to the peroneal tendons. Able to wiggle toes on command. No soft tissue crepitus. No pain with posterior calf squeeze. Urinary Catheter Management: Frey: Cath Placed During This Visit: yes Reason for Continuing Indwelling Catheter: Other Urinary Catheter Date of Insertion: 01/06/22 Urinary Catheter Time of Insertion: 09:00 Data : 01/08/22 02:16 01/08/22 02:16 Micro: Microbiology 01/07/22 Unknown Gram Stain - Final Other Source 01/08/22 02:16 Blood Culture - Preliminary Blood SPECIMEN COLLECTED 01/08/22 02:14 Blood Culture - Preliminary Blood SPECIMEN COLLECTED 01/06/22 01:20 Blood Culture - Preliminary Blood Staphylococcus aureus 01/06/22 09:01 Urine Culture - Preliminary Urine,Clean Catch Staphylococcus species A&P Assessment and plan (1) Cellulitis of left ankle: Status: Acute (2) Cellulitis of left foot: Status: Acute (3) Non-pressure chronic ulcer of other part of left foot with necrosis of muscle: Status: Acute Plan 51-year-old female with abscess and wound exposed to tendon and joint capsule left fifth metatarsal phalangeal joint. After obtaining verbal consent the bullae was lanced at the left foot with heavy purulent drainage expressed, post drainage the extensor tendons to the left fifth digit and the joint capsule from the left fifth metatarsophalangeal joint were exposed with surrounding devitalized tissue. This was irrigated followed by both anaerobic and aerobic wound cultures taken and sent to microbiology for gram stain and culture from the wound. This was then dressed with Maxorb AG, sterile 4 x 4's, Kerlix and Rehan wrap. Recommended formal surgical debridement given the extent of devitalized tissue and exposed tendon. Patient to be n.p.o. at midnight tonight in preparation for debridement tomorrow morning at 7 AM. Consult Attestations Medical Necessity Statement: Abscess left foot Coding Level of Care Code Acute Historical Archeologist for [facility] Fwd Diagnoses Cellulitis of left ankle L03.116 Cellulitis of left foot L03.116 Non-pressure chronic ulcer of other part of left foot with necrosis of muscle L97.523
[2022-01-08] MEDS: sennosides-docusate Tablet 2 TAB PO ×2 (13:29→18:09)
[2022-01-08] MEDS: NON-FORMULARY MEDICATION (Leflunomide 20 MG) 20 EACH PO (13:31)
--- NOTE | 2022-01-08 14:10 | PC.NURSE ---
Notified Dr. Telles of Staph Aureus in Right Hip. Will know if MRSA tomorrow.
--- NOTE | 2022-01-08 16:10 | PC.OT ---
OT EVALUATION ATTEMPTED. PATIENT HAD I&D OF ANKLE/FOOT TODAY AND SCHEDULED FOR SURGERY TOMORROW. WILL HOLD OT EVALUATION UNTIL AFTER SURGERY.
--- NOTE | 2022-01-08 17:32 | PC.NURSE ---
Discussed discharge, medications and follow up appointments with patient and father. Verbalized understanding.
[2022-01-08] MEDS: sucralfate 1 gm Tablet PO ×2 (18:09→19:55)
[2022-01-08] MEDS: trazodone 50 mg Tablet 25 MG PO (19:56)
[2022-01-09] VITALS (12 sets, daily range): BP systolic 111–143; BP diastolic 70–93; PULSE 64–86; RESP 16–20; TEMP 36.2–37; O2SAT 95–98
[2022-01-09] MEDS: cyclobenzaprine 10 mg Tablet PO ×2 (00:35→20:58)
[2022-01-09] MEDS: HYDROcodone-acetaminophen 10-325 mg Tablet 1 TAB PO ×4 (00:35→17:30)
[2022-01-09 01:46] LABS: Basophils % 0.2 %; Eosinophils % 0.1 %; Hematocrit 36.3 % (37.0-47.0); Hemoglobin 11.8 g/dL (11.5-15.3); Lymphocytes # 0.5 10^3/uL (0.8-4.8); Lymphocytes % 2.7 %; Mean Corpuscular HGB Conc 32.5 g/dL (30.0-36.0); Mean Corpuscular Hemoglobin 30.3 pg (28.0-34.0); Mean Corpuscular Volume 93.3 fl (81-99); Mean Platelet Volume 11.2 fL (7.4-10.4); Monocytes # 0.7 10^3/uL (0.2-0.9); Monocytes % 3.4 %; Neutrophils # 17.93 10^3/uL (1.8-7.7); Neutrophils % 92.4 %; Nucleated Red Blood Cells % 0 %; Platelet Count 366 10^3/cmm (130-400); Red Blood Count 3.89 10^6/uL (4.1-5.3); Red Cell Distribution Width 13.4 % (12.1-15.1); White Blood Count 19.4 10^3/uL (4.0-10.0)
[2022-01-09 02:08] LABS: Anion Gap 12.3 (5-19); Blood Urea Nitrogen 16 mg/dL (6-20); C Reactive Protein 133.6 mg/L (0.0-4.9); Calcium 8.4 mg/dL (8.5-10.5); Carbon Dioxide 23 mmol/L (22-29); Chloride 107 mmol/L (98-107); Glucose 134 mg/dL (65-115); Osmolality Calculated 289 mOsm/kg (285-295); Potassium 4.3 mmol/L (3.5-5.1); Sodium 138 mmol/L (136-145)
[2022-01-09] MEDS: vancomycin 1,500 MG/300 ML PIGGYBACK 200 MG IV ×2 (03:05→13:35)
--- NOTE | 2022-01-09 06:06 | NUR.SHIFT ---
Pt resting in bed, NPO since midnight, prepped to go to surgery, bed is low and locked, not needs at assessment, call light in reach
--- NOTE | 2022-01-09 06:13 | ANES.PREANE2 ---
Pre-Anesthetic Assessment Height/Weight: Height 1.6 m Weight 90.718 kg Temp Pulse Resp BP Pulse Ox O2 Del Method 98.6 F 76 18 122/76 98 01/09/22 03:50 01/09/22 03:50 01/09/22 03:50 01/09/22 03:50 01/09/22 03:50 01/08/22 15:11 Preop Diagnosis: left knee, rheumatoid arthritis/Avascular necrosis Operation Date: 01/09/22 07:00 Proposed Procedures p Incision And Drainage left foot(Left) - Panda Herrera DPM Familial anesthetic complications: None Was Beta Brandon taken within 24 hours: N/A Was Clonidine taken within 24 hours: N/A Last intake: 01/08/22 Social No alcohol and No tobacco Exam alert, oriented x 3, clear to auscultation bilaterally and regular rate & rhythm Airway Submandibular: within normal limits Cervical ROM: within normal limits Mallampati: Class II (Narrow roof of mouth/arched palate ) Dentition: partials History/ROS No significant complaints Pulmonary None reported CV/HEM Hypertension WBC 19.4 Denies CAD TTE 01/06/22 CONCLUSIONS ?LV systolic function is normal with EF of 60 to 65%. ?Mild tricuspid regurgitation. ?Valves are not well visualized. ?No comparison studies are available None reported Hepatic None reported GI None reported Metabolic Thyroid Disease Ob[place] [facility] [place] Lower Back Pain and Osteoarthritis/DJD Chronic steroid use Cellulitis RA arthritis Drain right hip Neuropsych None reported Anesthetic Plan ASA status: 3 Anesthesia: Anesthesia Evaluation, General and MAC Other: I discussed with the patient risks, goals, and benefits of MAC and general anesthesia. We discussed spectrum of MAC anesthesia including conversion to general as well as possibility of recall of intraoperative stimuli including discomfort/pain. Patient agrees to proceed with MAC. Plan MAC with PRN stress dose hydrocortisone 100 mg if signs of adrenal insufficiency present. Risk of > 500 ml blood loss (7ml/kg in children): No Medications/Allergies Home Medications Medication Instructions Recorded Confirmed Last Taken Type hydrochlorothiazide 25 mg tablet 25 mg PO DAILY 03/14/20 01/06/22 01/05/22 12:00 History levothyroxine 175 mcg capsule 175 mcg PO DAILY 03/14/20 01/06/22 01/05/22 10:00 History tramadol 50 mg tablet 100 mg PO TID PRN Pain 03/14/20 01/06/22 01/05/22 18:00 History cyclobenzaprine 10 mg tablet 10 mg PO TID PRN muscle spasm #90 01/02/22 01/06/22 01/05/22 08:00 Rx tabs ibuprofen 800 mg tablet 800 mg PO Q4H PRN Pain 01/06/22 01/06/22 01/05/22 18:00 History prednisone 10 mg tablet 10 mg PO DAILY 01/06/22 01/06/22 01/05/22 10:00 History leflunomide 20 mg tablet 20 mg PO DAILY #30 tabs 01/08/22 Unknown Rx upadacitinib 15 mg tablet,extended 15 mg PO DAILY #30 tabs 01/08/22 Unknown Rx release 24 hr (Rinvoq) Allergies Allergy/AdvReac Type Severity Reaction Status Date / Time Penicillins Allergy Severe ALGY-Anaphy Verified 01/02/22 15:00 laxis amoxicillin Allergy Unknown Verified 01/05/22 22:24 IV RA Meds Allergy ALGY-Anaphy Uncoded 01/06/22 03:10 laxis Current Medications Generic Name Dose Route Start Last Admin Trade Name Freq PRN Reason Stop Dose Admin Hydrocodone Bitart/Acetaminophen 1 tab 01/08/22 11:32 01/09/22 00:35 Hydrocodone-Acetaminophen 10-325 Mg Tablet PO 1 tab Q4H PRN Administration MODERATE PAIN Aspirin 81 mg 01/07/22 09:00 01/08/22 09:48 Aspirin 81 Mg Ec Tablet PO 81 mg DAILY MICHELLE Administration Cyclobenzaprine HCl 10 mg 01/06/22 02:32 01/09/22 00:35 Cyclobenzaprine 10 Mg Tablet PO 10 mg TID PRN Administration muscle spasm Docusate Sodium 100 mg 01/06/22 09:00 01/08/22 18:08 Docusate Sodium 100 Mg Capsule PO 100 mg BID MICHELLE Administration Enoxaparin Sodium 40 mg 01/07/22 21:00 01/07/22 20:21 Enoxaparin 40 Mg/0.4 Ml Syringe SUBCUT 40 mg Q24H MICHELLE Administration Hydromorphone HCl 0.4 mg 01/07/22 18:36 01/08/22 07:20 Hydromorphone 1 Mg/Ml Inj 1 Ml IVP 0.4 mg Q3H PRN Administration pain Vancomycin/PEG/NADA/Lysine/Water 1,500 mg in 300 mls @ 200 mls/hr 01/07/22 14:30 01/09/22 03:05 Vancocin IV 200 mls/hr Q12H MICHELLE Administration Levothyroxine Sodium 175 mcg 01/06/22 09:00 01/08/22 09:48 Levothyroxine 175 Mcg Tablet PO 175 mcg DAILY MICHELLE Administration Methylprednisolone Sodium Succinate 40 mg 01/08/22 08:30 01/08/22 19:55 Methylprednisolone Sod Succ 40 Mg/Ml Inj IVP 40 mg Q12H MICHELLE Administration Non-Formulary Medication 20 mg 01/08/22 14:00 01/08/22 13:31 Leflunomide PO 20 mg DAILY MICHELLE Administration Pantoprazole Sodium 40 mg 01/06/22 09:00 01/08/22 09:[address] 40 Mg Tablet PO 40 mg DAILY MICHELLE Administration Senna 17.2 mg 01/06/22 21:00 01/09/22 00:30 Sennosides 8.6 Mg Tablet PO Not Given BEDTIME MICHELLE Senna/Docusate Sodium 2 tab 01/08/22 11:40 01/08/22 18:09 Sennosides-Docusate Tablet PO 2 tab BID MICHELLE Administration Sucralfate 1 gm 01/08/22 17:00 01/08/22 19:55 Sucralfate 1 Gm Tablet PO 1 gm AC&BEDTIME MICHELLE Administration Trazodone HCl 25 mg 01/08/22 21:00 01/08/22 19:56 Trazodone 50 Mg Tablet PO 25 mg BEDTIME MICHELLE Administration [facility] Anesthesia Medical History Chronic steroid use High risk medication use Hypertension Hypothyroidism Immunization counseling Rheumatoid arthritis Seropositive rheumatoid arthritis of multiple sites Surgical History History of foot surgery x5 right History of hand surgery 2right hand, 1 left hand History of hip replacement, total bilateral Family History Other CAD (coronary artery disease) Cancer Hyperlipidemia Hypertension Denies family history of Rheumatoid arthritis Diabetes Lupus Chronic kidney disease (CKD) Lung disease Stroke Social History (Reviewed 01/09/22 @ 06:47 by STEPHIE Valverde Smoking and tobacco status: current some day smoker History of recent travel: No Data Anesthesia : 01/09/22 01:11 01/09/22 01:11 Short CBC 01/08/22 01/09/22 Range/Units 02:16 01:11 WBC 26.1 H 19.4 H (4.0-10.0) 10^3/uL Hgb 11.9 11.8 (11.5-15.3) g/dL Hct 36.1 L 36.3 L (37.0-47.0) % MCV 92.1 93.3 (81-99) fl Plt Count 349 366 (130-400) 10^3/cmm Neut % (Auto) 86.2 92.4 % Neut # (Auto) 22.51 H 17.93 H (1.8-7.7) 10^3/uL BMP 01/08/22 01/09/22 02:16 01:11 Sodium 137 138 Potassium 3.2 L 4.3 Chloride 102 107 Carbon Dioxide 25 23 BUN 15 16 Creatinine 0.5 0.4 L Glucose 101 134 H Calcium 8.4 L 8.4 L Liver Function 01/08/22 Range/Units 02:16 Total Bilirubin 0.2 (0.15-1.2) mg/dL AST 35 H (0-32) U/L ALT 21 (0-33) U/L Alkaline Phosphatase 154 H (35-105) IU/L Albumin 2.0 L (3.5-5.2) g/dL Coags 01/08/22 01/09/22 02:16 01:11 C-Reactive Protein 164.0 H 133.6 H Microbiology 01/08/22 02:16 Blood Culture - Preliminary Blood NEGATIVE TO DATE 01/08/22 02:14 Blood Culture - Preliminary Blood NEGATIVE TO DATE 01/06/22 09:01 Urine Culture - Final Urine,Clean Catch Staphylococcus aureus 01/06/22 01:20 Blood Culture - Preliminary Blood Staphylococcus aureus 01/07/22 Unknown Gram Stain - Final Other Source Body Fluid Culture - Preliminary Staphylococcus aureus Cardiac Studies: Echocardiogram 01/06/22
--- NOTE | 2022-01-09 06:35 | W.PM.OPSUD ---
Surgery/Procedure H&P Update DATE OF PROCEDURE: January 09, 2022 DATE H&P PERFORMED: 04/07/20 CHANGES TO PREVIOUS DOCUMENTATION: None PREOP DIAGNOSIS: left knee, rheumatoid arthritis/Avascular necrosis PLANNED PROCEDURE: Operation Date: 01/09/22 07:00 Proposed Procedures p Incision And Drainage left foot(Left) - Panda Herrera DPM
--- NOTE | 2022-01-09 06:36 | P.OP_ITS ---
Operative Report Date of procedure: January 09, 2022 Pre-op diagnosis: Abscess and cellulitis left foot Post-op findings: Incision and drainage complex foot infection with abscess left foot CPT code 85238 Procedure done: Incision and incision left foot Implants: None Specimens removed/disposition: Deep soft tissue that was devitalized sent to microbiology for gram stain and culture Pathology: None Surgeon: Panda Herrera D.P.M. Esthetic Dermatologist: Ervin Estimated blood loss: 5 6 IV fluids: None Urine output: None Complications: None Findings: Deep abscess. Brief History: Kristine Barbosa is a 51 year old female admitted to the hospital service for sepsis.? Found of abscess right gluteal region has drain in place.? I was consulted for concern for possible abscess at the left foot.? Patient relates to having increased pain in her left foot over the course of the past 2 weeks, denies stepping on any foreign object or puncture wound.? She thought that it was a rheumatoid nodule that was causing her pain.? She denies being diabetic.? She is immunosuppressed secondary to medication.? History of bilateral foot surgeries secondary to rheumatoid arthritis these were done at [facility] in [place]. ?Recommended formal surgical debridement given the extent of devitalized tissue and exposed tendon.? Procedure: Under mild sedation the patient was brought to the operating room and remained on the hospital bed in supine position. Timeout was performed. Anesthesia was then administered by the anesthesia service. Local anesthesia injected by myself consisting of 20 cc of one-to-one mixture 1% lidocaine and 0.25% Marcaine plain in a reverse Cazares block fashion to the left foot. Well-padded pneumatic tourniquet applied to the left ankle. The left lower extremity was then sc rubbed, prepped and draped utilizing normal aseptic technique. Left foot was elevated and tourniquet inflated to 250 mmHg. Attention was directed to the dorsal lateral aspect of the left foot where a full-thickness wound tracking from dorsal to plantar was appreciated, extensor tendons exposed and joint capsule exposed. Heavy amounts of white purulent drainage was expressed. Attention was directed plantarly to a wound subfifth metatarsal head of left foot with devitalized tissue being excised sharply with a #15 blade and pickups down to and including joint capsule. There is a significant mount of fluid collection consistent with abscess at the lateral aspect of the left fifth metatarsal phalangeal joint coursing around plantarly and into the fourth intermetatarsal space. This was debrided, irrigated and flushed with copious amounts of sterile saline solution. Once surgical debridement was finalized copious months of sterile saline solution was utilized to irrigate the wound. Dorsal portion of the wound at the dorsal lateral aspect of the left fifth metatarsal phalangeal joint postdebridement measures 2.5 cm x 2.8 cm x 1.5 cm cm in the plantar portion of this wound that communicated dorsal to plantar is 1.3 cm x 1.5 cm x 1.5 cm. Significant improvement in appearance to the wound with granular bleeding and healthy tissue was appreciated postoperatively. This was then dressed with saline wet-to-dry, sterile 4 x 4's, Kerlix and Rehan wrap. Patient will continue 3 times daily saline wet-to-dry dressing changes to the left foot wound on the floor. Plans for PICC line due to concomitant infection at the right gluteal region. Podiatry will follow. No further plans for surgical debridement during this hospitalization to the left foot.
[2022-01-09] MEDS: fentaNYL 50 mcg/mL INJ 2mL IVP (06:46)
--- NOTE | 2022-01-09 07:08 | PC.OT ---
HOLD OT EVALUATION DUE TO SURGERY TODAY
[2022-01-09] MEDS: lidocaine 2% INJ 20 mL INJECTION (07:10)
[2022-01-09] MEDS: pantoprazole DR 40 mg Tablet PO (09:39)
[2022-01-09] MEDS: levothyroxine 175 mcg Tablet PO (09:39)
[2022-01-09] MEDS: docusate sodium 100 mg Capsule PO ×2 (09:39→17:30)
[2022-01-09] MEDS: sucralfate 1 gm Tablet PO ×3 (10:37→20:56)
[2022-01-09] MEDS: NON-FORMULARY MEDICATION (Leflunomide 20 MG) 20 EACH PO (10:38)
[2022-01-09] MEDS: sennosides-docusate Tablet 2 TAB PO ×2 (10:38→17:30)
[2022-01-09] MEDS: potassium chloride ER 20 mEq Tablet 40 MEQ PO (10:38)
--- NOTE | 2022-01-09 10:52 | P.PN_ITS ---
Subjective Subjective: Status post surgical debridement Afebrile Leukocytosis trending down Pain is well controlled today She is still not able to sleep She got Seroquel last night 10ml yellow to grayish color drain noted in her bag Left foot in clean Rehan wraps Repeat cultures negative to date No bowel movement yet, passing flatus Vitals/I&O/Wt Last Vital Signs Temp 98.0 F 01/09/22 08:03 Pulse 64 01/09/22 08:03 Resp 16 01/09/22 08:03 BP 124/83 01/09/22 08:03 Pulse Ox 96 01/09/22 08:03 O2 Del Method 01/09/22 08:03 01/08/22 01/09/22 01/09/22 22:59 06:59 14:59 Intake Total 540 / 900 300 / 1200 400 / 400 Output Total 800 / 800 500 / 1300 235 / 235 Balance -260 / 100 -200 / -100 165 / 165 Physical Exam Narrative: Patient is laying comfortably today Awake and alert Nonfocal neuro exam Abdomen soft, bowel sound present Left foot in Rehan wraps Her right hip drain is showing yellowish to grayish 10ml content Nonfocal neuro exam Saturating well on room air S1, S2 Urinary Catheter Management: Frey: Cath Placed During This Visit: yes Reason for Continuing Indwelling Catheter: Assist healing open wound Urinary Catheter Date of Insertion: 01/06/22 Urinary Catheter Time of Insertion: 09:00 Data : 01/09/22 01:11 01/09/22 01:11 Micro: Microbiology 01/08/22 02:16 Blood Culture - Preliminary Blood NEGATIVE TO DATE 01/08/22 02:14 Blood Culture - Preliminary Blood NEGATIVE TO DATE 01/06/22 09:01 Urine Culture - Final Urine,Clean Catch Staphylococcus aureus 01/06/22 01:20 Blood Culture - Preliminary Blood Staphylococcus aureus 01/07/22 Unknown Gram Stain - Final Other Source Body Fluid Culture - Preliminary Staphylococcus aureus A&P Assessment and plan (1) Non-pressure chronic ulcer of other part of left foot with necrosis of muscle: Status: Acute (2) Cellulitis of left foot: Status: Acute (3) Status post incision and drainage: Status: Acute (4) Bacteremia: Status: Acute (5) Cellulitis of left ankle: Status: Acute (6) Blister: Status: Acute (7) Rheumatoid arthritis flare: Status: Acute (8) Hip pain, right: Status: Acute (9) Leukocytosis: Status: Acute (10) Chronic steroid use: Status: Acute (11) High risk medication use: Status: Acute Plan Bacteremia without sepsis Status post IR drainage of right hip, drain contains 10 mL purulent content Left foot purulent blister, purulent cellulitis Continue IV antibiotics S/p surgical debridement Bacteremia with MRSA Repeat cultures negative to date Afebrile Leukocytosis trending down Acute rheumatoid arthritis flare: Continue IV steroids and opioids added ibuprofen We were able to resume her leflunomide however Rinvoq is not available not even free samples I did check with rheumatology clinic For high-dose steroids all the risk factors and complications were notified to t he patient and her family Lower extremity edema improved continue low-dose Lasix DVT prophylaxis Lovenox Constipation Patient is stating at home she has very irregular bowel cycle She is currently on bowel regimen Passing flatus, no signs obstruction Poor p.o. intake Full code Consistent carb diet subcontract manager told me that we want to be able to set up home health until she has established care with PCP, there is no one to follow-up with of IV Vanco trough level at the time of discharge most likely she will need vancomycin 1 g every 12 hours for at least 6 weeks Echo did not show any signs of congestive heart failure or endocarditis Attestations Medical Necessity Statement*: Continue medical management Time Spent in Patient Care: 30 Coding Level of Care Code Acute Dining Room Busser for Chg Fwd Diagnoses Non-pressure chronic ulcer of other part of left foot with necrosis of muscle L97.523 Cellulitis of left foot L03.116 Status post incision and drainage Z98.890 Bacteremia R78.81 Cellulitis of left ankle L03.116 Blister T14.8XXA Rheumatoid arthritis flare M06.9 Hip pain, right M25.551 Leukocytosis D72.829 Chronic steroid use High risk medication use Z79.899
--- NOTE | 2022-01-09 11:16 | ANE.PACU2 ---
Inpatient post-anesthesia follow up: Airway intact: Yes Vital signs: Temperature 98.0 F Pulse Rate 64 Respiratory Rate 16 Blood Pressure 124/83 Pulse Oximetry 96 Oxygen Delivery Me thod Room Air Oxygen Flow Rate Fraction of Inspir ed Oxygen Hydration adequate: Yes Nausea and vomiting: No Pain level: 3 Mental status: Baseline
--- NOTE | 2022-01-09 13:03 | PC.SOCIAL ---
Pg 2 IMM Explained to pt Pg 2 IMM. No questions voiced. Provided pt a copy. Initialed, dated, & timed a copy & placed in chart.
[2022-01-09] MEDS: ibuprofen 200 mg Tablet 400 MG PO (15:39)
[2022-01-09] MEDS: TRAMadol 50 mg Tablet 100 MG PO (15:40)
[2022-01-09] MEDS: sennosides 8.6 mg Tablet 17.2 MG PO (20:56)
[2022-01-09] MEDS: enoxaparin 40 mg/0.4 mL Syringe SUBCUT (20:56)
[2022-01-09] MEDS: trazodone 50 mg Tablet 25 MG PO (20:57)
[2022-01-10] VITALS (7 sets, daily range): BP systolic 115–149; BP diastolic 76–86; PULSE 67–108; RESP 14–20; TEMP 36.6–36.9; O2SAT 96–98
[2022-01-10] MEDS: vancomycin 1,500 MG/300 ML PIGGYBACK 200 MG IV ×2 (03:13→15:05)
[2022-01-10] MEDS: HYDROcodone-acetaminophen 10-325 mg Tablet 1 TAB PO ×5 (03:23→23:47)
[2022-01-10 05:06] LABS: Basophils # 0.1 10^3/uL (0.0-0.1); Basophils % 0.3 %; Eosinophils % 0.1 %; Lymphocytes # 1.2 10^3/uL (0.8-4.8); Lymphocytes % 7.3 %; Mean Corpuscular HGB Conc 30.8 g/dL (30.0-36.0); Mean Corpuscular Hemoglobin 30.1 pg (28.0-34.0); Mean Corpuscular Volume 97.7 fl (81-99); Mean Platelet Volume 10.9 fL (7.4-10.4); Monocytes # 0.8 10^3/uL (0.2-0.9); Monocytes % 5.2 %; Neutrophils # 13.68 10^3/uL (1.8-7.7); Neutrophils % 85.7 %; Nucleated Red Blood Cells % 0 %; Platelet Count 325 10^3/cmm (130-400); Red Blood Count 3.99 10^6/uL (4.1-5.3); Red Cell Distribution Width 13.5 % (12.1-15.1)
[2022-01-10 06:21] LABS: Anion Gap 13.7 (5-19); Blood Urea Nitrogen 19 mg/dL (6-20); C Reactive Protein 59.7 mg/L (0.0-4.9); Calcium 8.5 mg/dL (8.5-10.5); Carbon Dioxide 19 mmol/L (22-29); Chloride 107 mmol/L (98-107); Glucose 102 mg/dL (65-115); Osmolality Calculated 282 mOsm/kg (285-295); Potassium 4.7 mmol/L (3.5-5.1); Sodium 135 mmol/L (136-145)
[2022-01-10] MEDS: NON-FORMULARY MEDICATION (Leflunomide 20 MG) 20 EACH PO (09:11)
[2022-01-10] MEDS: sucralfate 1 gm Tablet PO ×4 (09:11→19:29)
[2022-01-10] MEDS: docusate sodium 100 mg Capsule PO (09:12)
[2022-01-10] MEDS: pantoprazole DR 40 mg Tablet PO (09:12)
[2022-01-10] MEDS: levothyroxine 175 mcg Tablet PO (09:12)
[2022-01-10] MEDS: FUROsemide 20 mg Tablet PO (09:12)
[2022-01-10] MEDS: ALPRAZolam 0.5 mg Tablet PO (10:34)
--- NOTE | 2022-01-10 11:33 | XR_ITS ---
WS: [id number] XR chest 1V portable [id number] REASON FOR EXAM: PICC placement FINDINGS: There has been a left PICC line placement the tip is in the superior vena cava just above the right a trium. XR/XR chest 1V portable [id number] IMPRESSION: PICC line in position for use as above.
--- NOTE | 2022-01-10 11:52 | P.PN_ITS ---
Subjective Subjective: No overnight events Patient is endorsing improvement in pain Drainage today is 25 mL from her right hip Hemoglobin stable 11 afebrile, cultures negative to date PICC line placement She will stay here until Thursday She has received her boot as well she can start working with PT She had 1 bowel movement yesterday Vitals/I&O/Wt Last Vital Signs Temp 97.9 F 01/10/22 08:00 Pulse 83 01/10/22 08:00 Resp 17 01/10/22 08:00 BP 121/80 01/10/22 08:00 Pulse Ox 96 01/10/22 08:00 O2 Del Method 01/10/22 08:00 01/09/22 01/10/22 01/10/22 22:59 06:59 14:59 Intake Total 300 / 820 360 / 1180 300 / 300 Output Total 1000 / 1235 500 / 1735 Balance -700 / -415 -140 / -555 300 / 300 Physical Exam Narrative: Laying flat Supine No active pain 25 will drain from her right hip Left foot and Rehan wraps No active pain Edema has improved She looks euvolemic Abdomen soft S1, S2 Nonfocal neuro exam Saturating well on room air Urinary Catheter Management: Frey: Cath Placed During This Visit: yes Reason for Continuing Indwelling Catheter: Required Immobilization for Trauma or Surgery or Anesthesia Urinary Catheter Date of Insertion: 01/06/22 Urinary Catheter Time of Insertion: 09:00 Data : 01/10/22 04:32 01/10/22 05:45 Micro: Microbiology 01/08/22 12:33 Body Fluid Culture - Preliminary Ankle - #1 Staphylococcus aureus 01/07/22 Unknown Gram Stain - Final Other Source Body Fluid Culture - Final Staphylococcus aureus 01/09/22 07:22 Gram Stain - Final Other Source A&P Assessment and plan (1) Non-pressure chronic ulcer of other part of left foot with necrosis of muscle: Status: Acute (2) Cellulitis of left foot: Status: Acute (3) Status post incision and drainage: Status: Acute (4) Bacteremia: Status: Acute (5) Cellulitis of left ankle: Status: Acute (6) Rheumatoid arthritis flare: Status: Acute (7) High risk medication use: Status: Acute (8) Leukocytosis: Status: Acute Plan Bacteremia without sepsis Bacteremia resolved Repeat cultures are negative to date PICC line can be placed, she has PTSD to PICC line placement, will give her Xanax before that If we do not have any [address] PICC line today we can do it over the weekend or Thursday She will need vancomycin, Status postdebridement of left foot Status post right hip I&D, it is still draining greatest to yellowish fluid, 25 mL today I would not remove this drain today Afebrile Cultures negative to date Rheumatoid arthritis flare continue IV steroids, try to cut back on IV steroids we will do 60 mg rate of 80 mg today Continue ibuprofen Inflammatory markers have remarkably trending down Lower extremity edema improved with Lasix, stop Lasix for now Constipation: Resolved Full code Consistent carb diet DVT prophylaxis Lovenox Dr. 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
[2022-01-10] MEDS: HYDROmorphone 1 mg/mL INJ 1 mL 0.4 MG IVP (12:21)
[2022-01-10] MEDS: cyclobenzaprine 10 mg Tablet PO (15:05)
[2022-01-10] MEDS: TRAMadol 50 mg Tablet 100 MG PO (15:05)
--- NOTE | 2022-01-10 15:30 | XRR_ITS ---
PROCEDURE INFORMATION: Exam: XR Left Hand Exam date and time: 01/10/2022 3:41 PM Age: 51 years old Clinical indication: Hand; Left; Patient HX: History--pain started today concerned about arthritis flare up TECHNIQUE: Imaging protocol: Radiologic exam of the Left hand. Views: 1 or 2 views. COMPARISON: No relevant prior studies available. FINDINGS: Bones/joints: Severe 1st carpometacarpal joint osteoarthritis with subluxation of the thumb relative to the trapezium in the radial direction. Moderate radiocarpal joint osteoarthritis. Soft tissues: Normal. XR/XR hand LT 2V [id number] IMPRESSION: 1. Severe 1st carpometacarpal joint osteoarthritis with subluxation of the thumb relative to the trapezium in the radial direction. 2. Moderate radiocarpal joint osteoarthritis.
[2022-01-10] MEDS: enoxaparin 40 mg/0.4 mL Syringe SUBCUT (19:29)
[2022-01-10] MEDS: trazodone 50 mg Tablet 25 MG PO (19:29)
[2022-01-11 01:39] LABS: Basophils % 0.2 %; Eosinophils % 0.1 %; Hematocrit 38.1 % (37.0-47.0); Hemoglobin 12.4 g/dL (11.5-15.3); Mean Corpuscular HGB Conc 32.5 g/dL (30.0-36.0); Mean Corpuscular Hemoglobin 30.3 pg (28.0-34.0); Mean Corpuscular Volume 93.2 fl (81-99); Monocytes # 0.7 10^3/uL (0.2-0.9); Neutrophils # 14.51 10^3/uL (1.8-7.7); Neutrophils % 88.1 %; Nucleated Red Blood Cells % 0 %; Platelet Count 344 10^3/cmm (130-400); Red Blood Count 4.09 10^6/uL (4.1-5.3); Red Cell Distribution Width 13.6 % (12.1-15.1); White Blood Count 16.5 10^3/uL (4.0-10.0)
[2022-01-11 02:09] LABS: Vancomycin Trough 13.7 ug/mL (10-15)
[2022-01-11] MEDS: vancomycin 1,500 MG/300 ML PIGGYBACK 200 MG IV ×2 (02:15→13:45)
[2022-01-11] MEDS: HYDROcodone-acetaminophen 10-325 mg Tablet 1 TAB PO ×3 (03:43→19:25)
[2022-01-11 04:00] VITALS: BP 128/84; PULSE 67; RESP 18; TEMP 36.6; O2SAT 97
[2022-01-11 07:42] VITALS: BP 126/85; PULSE 70; RESP 18; TEMP 36.5; O2SAT 97
[2022-01-11] MEDS: pantoprazole DR 40 mg Tablet PO (08:51)
[2022-01-11] MEDS: sucralfate 1 gm Tablet PO ×4 (08:51→19:25)
[2022-01-11] MEDS: levothyroxine 175 mcg Tablet PO (08:51)
[2022-01-11] MEDS: FUROsemide 20 mg Tablet PO (08:51)
[2022-01-11] MEDS: NON-FORMULARY MEDICATION (Leflunomide 20 MG) 20 EACH PO (08:59)
--- NOTE | 2022-01-11 09:18 | PC.NURSE ---
Lab called said pt blood hemolyzed, I informed the nurse that lab wants a redraw.
--- NOTE | 2022-01-11 09:35 | P.PN_ITS ---
Subjective Subjective: Status post incision and debridement left foot with twice daily dressing changes, showing improvement. Still having pain to the left lower extremity. Patient is fully sensate. Patient denies any subjective nausea, vomiting, fever, chills, shortness of breath or chest pain. Vitals/I&O/Wt Last Vital Signs Temp 97.7 F 01/11/22 07:42 Pulse 70 01/11/22 07:42 Resp 18 01/11/22 07:42 BP 126/85 01/11/22 07:42 Pulse Ox 97 01/11/22 07:42 O2 Del Method 01/11/22 07:42 01/10/22 01/11/22 01/11/22 22:59 06:59 14:59 Intake Total 300 / 600 300 / 900 240 / 240 Output Total 2075 / 2075 760 / 2835 Balance -1775 / -1475 -460 / -1935 240 / 240 Physical Exam Narrative: GENERAL: Patient is alert and oriented ?3 and in no acute distress. The following is a focused bilateral lower extremity exam. VASCULAR: Dorsalis pedis palpable +2 bilaterally, posterior tibial arteries +2. Capillary refill time less than 3 seconds to the distal hallux bilaterally. Calf is supple and nontender proximally and distally. Focal edema to the left lateral forefoot. NEUROLOGICAL: Protective sensation intact to light touch. DERMATOLOGICAL: Wound dorsal to plantar at the left lateral forefoot adjacent to the fifth metatarsal phalangeal joint has interval healing with new granular tissue. No sergio purulence expressed. MUSCULOSKELETAL: Pain to palpation left fifth metatarsal phalangeal joint and left lateral forefoot coursing to the peroneal tendons. Able to wiggle toes on command. No soft tissue crepitus. No pain with posterior calf squeeze. Urinary Catheter Management: Frey: Cath Placed During This Visit: yes Reason for Continuing Indwelling Catheter: Accurate Measurement of Urinary Output in Critically Ill Patients Urinary Catheter Date of Insertion: 01/06/22 Urinary Catheter Time of Insertion: 09:00 Data : 01/11/22 01:20 01/11/22 09:25 Micro: Microbiology 01/06/22 01:25 Blood Culture - Final Blood Staphylococcus aureus 01/06/22 01:20 Blood Culture - Final Blood Staphylococcus aureus 01/09/22 07:22 Gram Stain - Final Other Source Wound Culture - Preliminary Staphylococcus aureus 01/08/22 12:33 Body Fluid Culture - Preliminary Ankle - #1 Staphylococcus aureus A&P Assessment and plan (1) Cellulitis of left ankle: Status: Acute (2) Cellulitis of left foot: Status: Acute (3) Non-pressure chronic ulcer of other part of left foot with necrosis of muscle: Status: Acute Plan 51-year-old female with abscess and wound exposed to tendon and joint capsule left fifth metatarsal phalangeal joint. Incision 01/09/2022, interval of healing appreciated. No further purulence expressed at bedside. Will continue saline wet-to-dry twice daily. PICC line is in place. Patient has a concomitant gluteal abscess with drain placed by IR. Plans for long-term IV antibiotics with wound care follow-up on discharge for management of gluteal wound and left foot wound. Has OrthoWedge heel offloading shoe with peg hole insert. May heel touch for transfers. Attestations Medical Necessity Statement*: Abscess with cellulitis left foot Coding Level of Care Code Acute Greenhouse Technician for [facility] Diagnoses Cellulitis of left ankle L03.116 Cellulitis of left foot L03.116 Non-pressure chronic ulcer of other part of left foot with necrosis of muscle L97.523
[2022-01-11 09:52] VITALS: RESP 18
[2022-01-11] MEDS: morphine 4 mg/mL SDV 1 mL IVP (09:52)
[2022-01-11 10:00] LABS: Blood Urea Nitrogen 13 mg/dL (6-20); C Reactive Protein 44.5 mg/L (0.0-4.9); Calcium 8.8 mg/dL (8.5-10.5); Carbon Dioxide 19 mmol/L (22-29); Chloride 103 mmol/L (98-107); Glucose 123 mg/dL (65-115); Osmolality Calculated 279 mOsm/kg (285-295); Sodium 134 mmol/L (136-145)
[2022-01-11 10:01] LABS: Anion Gap 16.2 (5-19); Potassium 4.2 mmol/L (3.5-5.1)
[2022-01-11 11:50] VITALS: BP 112/61; PULSE 84; RESP 20; TEMP 36.7; O2SAT 96
--- NOTE | 2022-01-11 13:20 | PM.PN ---
Subjective Subjective: Patient had another bowel movement yesterday Pain is well controlled I will continue her current dose of steroids Subluxation of thumb which is related to her rheumatoid arthritis She will need to see hand surgeon for that I will call her reconciler on Thursday She is agreeable to go to LTAC if he gets accepted No fever, repeat cultures negative Status post PICC line placement Inflammatory markers trending down 10 ml noted from her hip drain Vitals/I&O/Wt Last Vital Signs Temp 98.1 F 01/11/22 11:50 Pulse 84 01/11/22 11:50 Resp 20 H 01/11/22 11:50 BP 112/61 01/11/22 11:50 Pulse Ox 96 01/11/22 11:50 O2 Del Method 01/11/22 11:50 01/10/22 01/11/22 01/11/22 22:59 06:59 14:59 Intake Total 300 / 600 300 / 900 240 / 240 Output Total 2075 / 2075 760 / 2835 Balance -1775 / -1475 -460 / -1935 240 / 240 Physical Exam Narrative: Patient is calm and cooperative Work with PT Awake and alert Euvolemic No signs of edema Swelling of her lower extremities has significantly improved Good granulation tissue of her left foot Right hip drain no active drainage Currently on room air Awake and alert Nonfocal neuro exam Abdomen soft No active cardiac complaint Urinary Catheter Management: Frey: Cath Placed During This Visit: yes Reason for Continuing Indwelling Catheter: Accurate Measurement of Urinary Output in Critically Ill Patients Urinary Catheter Date of Insertion: 01/06/22 Urinary Catheter Time of Insertion: 09:00 Data : 01/11/22 01:20 01/11/22 09:25 Micro: Microbiology 01/08/22 12:33 Body Fluid Culture - Final Ankle - #1 Staphylococcus aureus 01/06/22 01:25 Blood Culture - Final Blood Staphylococcus aureus 01/06/22 01:20 Blood Culture - Final Blood Staphylococcus aureus 01/09/22 07:22 Gram Stain - Final Other Source Wound Culture - Preliminary Staphylococcus aureus A&P Assessment and plan (1) Non-pressure chronic ulcer of other part of left foot with necrosis of muscle: Status: Acute (2) Cellulitis of left foot: Status: Acute (3) Status post incision and drainage: Status: Acute (4) Bacteremia: Status: Acute (5) Cellulitis of left ankle: Status: Acute (6) Blister: Status: Acute (7) Rheumatoid arthritis flare: Status: Acute (8) Leukocytosis: Status: Acute (9) Chronic steroid use: Status: Acute (10) High risk medication use: Status: Acute Plan Bacteremia repeat cultures are negative She will need 6 weeks of IV vancomycin Awaiting placement MRSA bacteremia: Resolved Acute dermatitis flare resolving inflammatory markers trending down Will de-escalate her IV steroids tomorrow Thumb luxation of left hand will need hand surgeon, related to rheumatoid I will call her reconciler Dr. Sean Johnsons at [facility] [phone] Status post I&D right hip for gluteal abscess Status post debridement of left foot 01/09 PICC line placed 01/10 Dr. Herrera recommended wound care follow-up OrthoWedge heel offloading PT on daily basis Attestations Medical Necessity Statement*: She will be discharged next week Time Spent in Patient Care: 30 Coding Level of Care Code Acute Shredding Floor Equipment Operator for [facility] Fwd Diagnoses Non-pressure chronic ulcer of other part of left foot with necrosis of muscle L97.523 Cellulitis of left foot L03.116 Status post incision and drainage Z98.890 Bacteremia R78.81 Cellulitis of left ankle L03.116 Blister T14.8XXA Rheumatoid arthritis flare M06.9 Leukocytosis D72.829 Chronic steroid use High risk medication use Z79.899
[2022-01-11 15:33] VITALS: BP 114/73; PULSE 87; RESP 18; TEMP 36.7; O2SAT 97
[2022-01-11] MEDS: enoxaparin 40 mg/0.4 mL Syringe SUBCUT (19:24)
[2022-01-11] MEDS: trazodone 50 mg Tablet 25 MG PO (19:25)
[2022-01-11 20:00] VITALS: BP 107/67; PULSE 80; RESP 17; TEMP 36.6; O2SAT 95
[2022-01-12] VITALS: BP 102/65; PULSE 76; RESP 17; TEMP 36.8; O2SAT 96
[2022-01-12] MEDS: vancomycin 1,500 MG/300 ML PIGGYBACK 200 MG IV ×2 (00:46→14:08)
[2022-01-12] MEDS: HYDROcodone-acetaminophen 10-325 mg Tablet 1 TAB PO ×4 (00:46→17:10)
--- NOTE | 2022-01-12 00:48 | PC.NURSE ---
Patient offered to be turned/repositioned. Patient refused. Patient educated that it is best to turn to prevent bed sore. Patient states, I'm comfortable the way I am.
[2022-01-12 04:00] VITALS: BP 126/85; PULSE 70; RESP 17; TEMP 36.6; O2SAT 97
[2022-01-12] MEDS: sucralfate 1 gm Tablet PO ×4 (06:17→20:26)
[2022-01-12] MEDS: morphine 4 mg/mL SDV 1 mL IVP (06:26)
--- NOTE | 2022-01-12 07:09 | P.PN_ITS ---
Subjective Subjective: Patient is seen bedside this morning for reevaluation of her left foot wound. Denies any acute events overnight. PICC line has been placed. Patient denies any subjective nausea, vomiting, fever, chills, shortness of breath or chest pain. Vitals/I&O/Wt Last Vital Signs Temp 98 F 01/12/22 04:00 Pulse 70 01/12/22 04:00 Resp 17 01/12/22 04:00 BP 126/85 01/12/22 04:00 Pulse Ox 97 01/12/22 04:00 O2 Del Method 01/11/22 15:33 01/11/22 01/12/22 01/12/22 22:59 06:59 14:59 Intake Total 840 / 1560 300 / 1860 Output Total 1715 / 1715 810 / 2525 Balance -875 / -155 -510 / -665 Physical Exam 2 Narrative: GENERAL: Patient is alert and oriented ?3 and in no acute distress. The following is a focused bilateral lower extremity exam. VASCULAR: Dorsalis pedis palpable +2 bilaterally, posterior tibial arteries +2. Capillary refill time less than 3 seconds to the distal hallux bilaterally. Calf is supple and nontender proximally and distally. Focal edema to the left lateral forefoot. NEUROLOGICAL: Protective sensation intact to light touch. DERMATOLOGICAL: Wound dorsal to plantar at the left lateral forefoot adjacent to the fifth metatarsal phalangeal joint has interval healing with new granular tissue. No sergio purulence expressed. MUSCULOSKELETAL: Pain to palpation left fifth metatarsal phalangeal joint and left lateral forefoot coursing to the peroneal tendons. Able to wiggle toes on command. No soft tissue crepitus. No pain with posterior calf squeeze. Urinary Catheter Management: Frey: Cath Placed During This Visit: yes Reason for Continuing Indwelling Catheter: Required Immobilization for Trauma or Surgery or Anesthesia Urinary Catheter Date of Insertion: 01/06/22 Urinary Catheter Time of Insertion: 09:00 Data : 01/11/22 01:20 01/11/22 09:25 Micro: Microbiology 01/09/22 07:22 Gram Stain - Final Other Source Wound Culture - Final Staphylococcus aureus 01/08/22 12:33 Body Fluid Culture - Final Ankle - #1 Staphylococcus aureus A&P Assessment and plan (1) Cellulitis of left ankle: Status: Acute (2) Cellulitis of left foot: Status: Acute (3) Non-pressure chronic ulcer of other part of left foot with necrosis of muscle: Status: Acute Plan 51-year-old female with abscess and wound exposed to tendon and joint capsule left fifth metatarsal phalangeal joint. * Incision and debridement to the left foot performed 01/09/2022 culture is significant for staph aureus * Left foot wound is significantly improved, has a vital base with new granular tissue. There is no purulence expressed, no surrounding erythema or cellulitis at this time * Ortho wedge heel offloading shoe to be worn when ambulating * Continue saline wet-to-dry 3 times daily * Patient has a concomitant gluteal wound, PICC line has been placed, location of this wound is at my scope of practice. * Recommend wound care follow-up as both wounds are within their scope of practice. * Okay for discharge from podiatry standpoint concerning left foot, no further plans for surgical debridement during this hospitalization. 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
[2022-01-12 07:47] VITALS: BP 124/85; PULSE 74; RESP 16; TEMP 36.6; O2SAT 97
[2022-01-12] MEDS: pantoprazole DR 40 mg Tablet PO (08:27)
[2022-01-12] MEDS: levothyroxine 175 mcg Tablet PO (08:27)
[2022-01-12] MEDS: NON-FORMULARY MEDICATION (Leflunomide 20 MG) 20 EACH PO (08:27)
--- NOTE | 2022-01-12 11:48 | PM.PN ---
Subjective Subjective: No overnight events She is feeling much better She is able to get out of bed Decrease the dose of steroids Frey catheter hip drain can be removed Cultures negative to date Plan to send her home on Thursday Vitals/I&O/Wt Last Vital Signs Temp 97.9 F 01/12/22 07:47 Pulse 74 01/12/22 07:47 Resp 16 01/12/22 07:47 BP 124/85 01/12/22 07:47 Pulse Ox 97 01/12/22 07:47 O2 Del Method 01/12/22 07:47 01/11/22 01/12/22 01/12/22 22:59 06:59 14:59 Intake Total 840 / 1560 300 / 1860 0 / 0 Output Total 1715 / 1715 810 / 2525 Balance -875 / -155 -510 / -665 0 / 0 Physical Exam Narrative: Awake and alert No active swelling Leg edema improved Awake and alert Pleasant cooperative Swelling of hand reduced as well No active pain She is able to get out of bed No nonfocal neuro exam Satting well on room air No active chest pain Urinary Catheter Management: Frey: Cath Placed During This Visit: yes Reason for Continuing Indwelling Catheter: Required Immobilization for Trauma or Surgery or Anesthesia Urinary Catheter Date of Insertion: 01/06/22 Urinary Catheter Time of Insertion: 09:00 Data : 01/11/22 01:20 01/11/22 09:25 Micro: Microbiology 01/09/22 07:22 Gram Stain - Final Other Source Wound Culture - Final Staphylococcus aureus 01/08/22 12:33 Body Fluid Culture - Final Ankle - #1 Staphylococcus aureus A&P Assessment and plan (1) Non-pressure chronic ulcer of other part of left foot with necrosis of muscle: Status: Acute (2) Cellulitis of left foot: Status: Acute (3) Status post incision and drainage: Status: Acute (4) Bacteremia: Status: Acute (5) Cellulitis of left ankle: Status: Acute (6) Blister: Status: Acute (7) Rheumatoid arthritis flare: Status: Acute (8) Hip pain, right: Status: Acute (9) Chronic steroid use: Status: Acute (10) High risk medication use: Status: Acute Plan My plan is to give her high-dose vancomycin tomorrow and discharge her home she has an appointment to see Dr. Stewart 8 AM next morning and then she will get vancomycin in the evening Hopefully wound care clinic will be able to follow-up for Vanco trough level She does not want to go to LTAC Today I will remove her hip drain, remove Frey catheter Patient is able to get out of bed and ambulate Cultures negative to date DVT prophylaxis on board Full code She is having bowel movement Constipation relieved We will touch base with her incising machine operator tomorrow Attestations Medical Necessity Statement*: Discharge tomorrow Time Spent in Patient Care: 30 Coding Level of Care Code Acute Gis Mapping Technician for [facility] Diagnoses Non-pressure chronic ulcer of other part of left foot with necrosis of muscle L97.523 Cellulitis of left foot L03.116 Status post incision and drainage Z98.890 Bacteremia R78.81 Cellulitis of left ankle L03.116 Blister T14.8XXA Rheumatoid arthritis flare M06.9 Hip pain, right M25.551 Chronic steroid use High risk medication use Z79.899
[2022-01-12 12:00] VITALS: BP 121/80; PULSE 78; RESP 16; TEMP 36.8; O2SAT 96
--- NOTE | 2022-01-12 14:13 | PC.NURSE ---
Removed drain to patient's right hip. 2x2 and tegaderm applied. Bowman emptied. 8cc of NS removed from balloon and bowman removed. Patient tolerated procedure well.
[2022-01-12] MEDS: ibuprofen 200 mg Tablet 400 MG PO (15:34)
[2022-01-12] MEDS: TRAMadol 50 mg Tablet 100 MG PO (15:35)
[2022-01-12 15:53] VITALS: BP 115/80; PULSE 83; RESP 16; TEMP 36.7; O2SAT 96
[2022-01-12 20:00] VITALS: BP 121/68; PULSE 79; RESP 17; TEMP 36.4; O2SAT 95
[2022-01-12] MEDS: trazodone 50 mg Tablet 25 MG PO (20:26)
[2022-01-12] MEDS: enoxaparin 40 mg/0.4 mL Syringe SUBCUT (20:27)
[2022-01-13] VITALS: BP 136/90; PULSE 80; RESP 17; TEMP 36.6; O2SAT 96
[2022-01-13] MEDS: vancomycin 1,500 MG/300 ML PIGGYBACK 200 MG IV (01:50)
[2022-01-13 04:00] VITALS: BP 131/84; PULSE 68; RESP 17; TEMP 36.6; O2SAT 98
[2022-01-13] MEDS: sucralfate 1 gm Tablet PO ×2 (06:26→10:53)
[2022-01-13] MEDS: HYDROcodone-acetaminophen 10-325 mg Tablet 1 TAB PO (06:28)
[2022-01-13] MEDS: morphine 4 mg/mL SDV 1 mL 2 MG IVP (07:31)
[2022-01-13 08:00] VITALS: BP 137/86; PULSE 85; RESP 16; TEMP 36.7; O2SAT 98
--- NOTE | 2022-01-13 09:13 | PC.SOCIAL ---
IMM Updated Updated pt on IMM. No questions voiced. Provided pt a copy. Initialed, dated, & timed copy in chart.
[2022-01-13] MEDS: levothyroxine 175 mcg Tablet PO (09:21)
[2022-01-13] MEDS: pantoprazole DR 40 mg Tablet PO (09:21)
[2022-01-13] MEDS: NON-FORMULARY MEDICATION (Leflunomide 20 MG) 20 EACH PO (09:21)
--- NOTE | 2022-01-13 10:21 | PM.PN ---
Subjective Subjective: Patient is seen bedside this morning for reevaluation of her left foot wound. Denies any acute events overnight. PICC line has been placed. Reports the gluteal drain was removed. Patient denies any subjective nausea, vomiting, fever, chills, shortness of breath or chest pain. Vitals/I&O/Wt Last Vital Signs Temp 98.1 F 01/13/22 08:00 Pulse 85 01/13/22 08:00 Resp 16 01/13/22 08:00 BP 137/86 01/13/22 08:00 Pulse Ox 98 01/13/22 08:00 O2 Del Method 01/13/22 08:00 01/12/22 01/13/22 01/13/22 22:59 06:59 14:59 Intake Total 640 / 880 300 / 1180 240 / 240 Output Total 550 / 550 Balance 90 / 330 300 / 630 240 / 240 Physical Exam Narrative: GENERAL: Patient is alert and oriented ?3 and in no acute distress. The following is a focused bilateral lower extremity exam. VASCULAR: Dorsalis pedis palpable +2 bilaterally, posterior tibial arteries +2. Capillary refill time less than 3 seconds to the distal hallux bilaterally. Calf is supple and nontender proximally and distally. Focal edema to the left lateral forefoot. NEUROLOGICAL: Protective sensation intact to light touch. DERMATOLOGICAL: Wound dorsal to plantar at the left lateral forefoot adjacent to the fifth metatarsal phalangeal joint has interval healing with new granular tissue. No sergio purulence expressed. MUSCULOSKELETAL: Pain to palpation left fifth metatarsal phalangeal joint and left lateral forefoot coursing to the peroneal tendons. Able to wiggle toes on command. No soft tissue crepitus. No pain with posterior calf squeeze. Urinary Catheter Management: Frey: Cath Placed During This Visit: yes, but has since been removed by the nurse Reason for Continuing Indwelling Catheter: Decision to DC Catheter Urinary Catheter Date of Insertion: 01/06/22 Urinary Catheter Time of Insertion: 09:00 Date Urinary Catheter Removed: 01/12/22 Time Urinary Catheter Discontinued: 08:00 Data : 01/11/22 01:20 01/11/22 09:25 Micro: Microbiology 01/08/22 02:16 Blood Culture - Final Blood NO GROWTH AFTER 5 DAYS 01/08/22 02:14 Blood Culture - Final Blood NO GROWTH AFTER 5 DAYS A&P Assessment and plan (1) Cellulitis of left ankle: Status: Acute (2) Cellulitis of left foot: Status: Acute (3) Non-pressure chronic ulcer of other part of left foot with necrosis of muscle: Status: Acute Plan 51-year-old female with abscess and wound exposed to tendon and joint capsule left fifth metatarsal phalangeal joint. Incision and debridement to the left foot performed 01/09/2022 culture is significant for staph aureus Left foot wound is significantly improved, has a vital base with new granular tissue. There is no purulence expressed, no surrounding erythema or cellulitis at this time Ortho wedge heel offloading shoe to be worn when ambulating Continue saline wet-to-dry 3 times daily Patient has a concomitant gluteal wound, PICC line has been placed, location of this wound is at my scope of practice. Recommend wound care follow-up as both wounds are within their scope of practice. Okay for discharge from podiatry standpoint concerning left foot, no further plans for surgical debridement during this hospitalization. Attestations Medical Necessity Statement*: Abscess with cellulitis left foot Coding Level of Care Code Acute Automation Control Integrator for [facility] Diagnoses Cellulitis of left ankle L03.116 Cellulitis of left foot L03.116 Non-pressure chronic ulcer of other part of left foot with necrosis of muscle L97.523
[2022-01-13] MEDS: ibuprofen 200 mg Tablet 400 MG PO (10:53)
[2022-01-13] MEDS: vancomycin 1,500 MG/300 ML PIGGYBACK 300 MG IV (10:56)
--- NOTE | 2022-01-13 11:50 | P.DS_ITS ---
Discharge Providers Date of Admission: 01/06/22 00:58 Date of Discharge: January 13, 2022 Attending Provider at Admission: Tabitha Mahan MD Attending Provider at Discharge: Gilbert Telles MD Primary Care Provider: AURELIA Bravo Diagnoses at Discharge Discharge Diagnosis (1) Cellulitis of left ankle: Status: Acute (2) Cellulitis of left foot: Status: Acute (3) Non-pressure chronic ulcer of other part of left foot with necrosis of muscle: Status: Acute Reason for Visit Reason for Visit: BILAT EDEMA Hospital Course Hospital Course Patient was admitted on 01/09 for management of acute rheumatoid arthritis flare, she was started on IV antibiotics and steroids, she was not septic, her department secretary is with [facility] Dr. Navarro in [place], who prescribed leflunomide and Rinvoq for her rheumatoid arthritis. Patient has been getting samples from the clinic. During her hospitalization she was diagnosed with MRSA bacteremia, she had right gluteal abscess which was drained by the IR on 01/07, source of MRSA bacteremia was open wound on her left foot with purulent blister. Dr. Herrera was consulted who did incision and drainage at the bedside of purulent blister 01/08 and then surgical debridement on 01/09, cultures from the OR showed MRSA as well. Her hip imaging did not show infection of prosthetic joints as per Dr. Otto. Her repeat cultures were negative. She was started on IV vancomycin from day 1. She remained afebrile without worsening of leukocytosis. Her pain started getting better with use of IV steroids and leflunomide. Her hip drain was removed on 01/12. Patient will get 6 weeks of IV vancomycin, oral Vanco trough level will be followed by Dr. Guy at wound care clinic. We have also set her up with a new PCP. I have asked patient to slowly taper off her steroids 30 mg for 3 days, 20 mg for 3 days and start taking her 10 mg usual dose. I have tried to contact her department secretary he is not in the clinic on Thursday. I have left a voicemail and talk to his nurse. The time of discharge to have discontinued her hydrochlorothiazide, prescribed omeprazole, lisinopril, opioids, bowel regimen she has been having bowel movement in the hospital, no signs of opioid-induced constipation She will need to see her department secretary for left thumb subluxation, etiology is arthritis. She did well with physical therapy She is able to get out of bed and walk with mild assistance, he has been using a knee scooter as well These are Dr. Herrera's recommendations * Left foot wound is significantly improved, has a vital base with new granular tissue.? There is no purulence expressed, no surrounding erythema or cellulitis at this time * Ortho wedge heel offloading shoe to be worn when ambulating * Continue saline wet-to-dry 3 times daily * Patient has a concomitant gluteal wound, PICC line has been placed, location of this wound is at my scope of practice. Physical Exam Narrative: Awake and alert No active swelling Leg edema improved Awake and alert Pleasant cooperative Swelling of hand reduced as well No active pain She is able to get out of bed No nonfocal neuro exam Satting well on room air No active chest pain ? Urinary Catheter Management: Frey: Cath Placed During This Visit: yes, but has since been removed by the nurse Reason for Continuing Indwelling Catheter: Decision to DC Catheter Urinary Catheter Date of Insertion: 01/06/22 Urinary Catheter Time of Insertion: 09:00 Date Urinary Catheter Removed: 01/12/22 Time Urinary Catheter Discontinued: 08:00 Discharge Data Studies Completed and Pending Completed Studies During Hospitalization Category Date Time Status CT hip RT wo con* [id number] Urgent Cat Scan 01/06/22 00:27 Completed CXRP [XR chest 1V portable [id number]] Stat Exams 01/05/22 23:39 Completed XR ankle LT 2V [id number] Routine Exams 01/08/22 11:32 Completed XR chest 1V portable [id number] Stat Exams 01/10/22 11:33 Completed XR foot LT min 3V* [id number] Routine Exams 01/08/22 11:37 Completed XR hand LT 2V [id number] Routine Exams 01/10/22 15:30 Completed MR hip RT wo con* [id number] Stat MRI 01/06/22 08:59 Completed CV. echo complete* [id number] Routine Ultrasound 01/06/22 08:31 Completed US softtissue fl dr cheng [id number] Routine Ultrasound 01/07/22 Completed US venous duplex lower extremity bilat [CV venous Ultrasound 01/05/22 22:26 [place] [id number]] Urgent Radiology Impressions Venous Duplex 01/05/22 22:26 IMPRESSION: No evidence of deep vein thrombosis. Hip CT 01/06/22 00:27 IMPRESSION: There are no acute osseous findings. Hip MRI 01/06/22 08:59 IMPRESSION: 1. Prior postoperative changes RIGHT DEMARCO. 2. Lobulated fluid collection gluteus musculature about the RIGHT DEMARCO is nonspecific but suspicious for infection. This may be due to postoperative seroma or fluid collection if recent surgery. Recommend correlation with clinical history. 3. Bony images are degraded due to susceptibility artifact. Drainage Catheter Insertion 01/07/22 00:00 IMPRESSION: 1. Uncomplicated pigtail drain placement abscess RIGHT hip 2. Recommend drain flushing 2 times per day with 8-10cc normal saline Ankle X-Ray 01/08/22 11:32 IMPRESSION: 1. Anterior and lateral soft tissue swelling is evident. 2. No acute osseous pathology. Foot X-Ray 01/08/22 11:37 IMPRESSION: 1. Soft tissue swelling noted along the lateral aspect of the forefoot. 2. No acute osseous pathology. Chest X-Ray 01/10/22 11:33 IMPRESSION: PICC line in position for use as above. Hand X-Ray 01/10/22 15:30 IMPRESSION: 1. Severe 1st carpometacarpal joint osteoarthritis with subluxation of the thumb relative to the trapezium in the radial direction. 2. Moderate radiocarpal joint osteoarthritis. Laboratory Results WBC 16.5 10^3/uL (4.0-10.0) H 01/11/22 01:20 RBC 4.09 10^6/uL (4.1-5.3) L 01/11/22 01:20 Hgb 12.4 g/dL (11.5-15.3) 01/11/22 01:20 Hct 38.1 % (37.0-47.0) 01/11/22 01:20 MCV 93.2 fl (81-99) 01/11/22 01:20 MCH 30.3 pg (28.0-34.0) 01/11/22 01:20 MCHC 32.5 g/dL (30.0-36.0) D 01/11/22 01:20 RDW 13.6 % (12.1-15.1) 01/11/22 01:20 Plt Count 344 10^3/cmm (130-400) 01/11/22 01:20 MPV 11.0 fL (7.4-10.4) H 01/11/22 01:20 Neut % (Auto) 88.1 % 01/11/22 01:20 Lymph % (Auto) 6.0 % 01/11/22 01:20 Pine % (Auto) 4.0 % 01/11/22 01:20 Eos % (Auto) 0.1 % 01/11/22 01:20 Baso % (Auto) 0.2 % 01/11/22 01:20 Neut # (Auto) 14.51 10^3/uL (1.8-7.7) H 01/11/22 01:20 Lymph # (Auto) 1.0 10^3/uL (0.8-4.8) 01/11/22 01:20 Pine # (Auto) 0.7 10^3/uL (0.2-0.9) 01/11/22 01:20 Eos # (Auto) 0.0 10^3/uL (0.0-0.8) 01/11/22 01:20 Baso # (Auto) 0.0 10^3/uL (0.0-0.1) 01/11/22 01:20 Nucleated RBC % (auto) 0 % 01/11/22 01:20 Nucleated RBCs # 0.0 /100WBC 01/11/22 01:20 ESR 64 mm/hr (0-15) H 01/06/22 07:41 PT 15.30 SECONDS (12.1-14.9) H 01/06/22 19:44 INR 1.18 (0.8-1.2) 01/06/22 19:44 APTT 29.5 SECONDS (23.9-36.7) 01/06/22 19:44 Fibrinogen 1226 mg/dL (174-498) H 01/06/22 19:44 Sodium 134 mmol/L (136-145) L 01/11/22 09:25 Potassium 4.2 mmol/L (3.5-5.1) 01/11/22 09:25 Chloride 103 mmol/L (98-107) 01/11/22 09:25 Carbon Dioxide 19 mmol/L (22-29) L 01/11/22 09:25 Anion Gap 16.2 (5-19) 01/11/22 09:25 BUN 13 mg/dL (6-20) 01/11/22 09:25 Creatinine 0.4 mg/dL (0.5-0.9) L 01/11/22 09:25 GFR Calculation 167.0 mL/min (90-130) H 01/11/22 09:25 Glucose 123 mg/dL (65-115) H 01/11/22 09:25 Calculated Osmolality 279 mOsm/kg (285-295) L 01/11/22 09:25 Lactic Acid 1.5 mmol/L (0.5-2.2) 01/05/22 23:20 Uric Acid 3.0 mg/dL (2.4-5.7) 01/08/22 02:16 Calcium 8.8 mg/dL (8.5-10.5) 01/11/22 09:25 Magnesium 1.7 mg/dL (1.7-2.3) 01/06/22 06:30 Total Bilirubin 0.2 mg/dL (0.15-1.2) 01/08/22 02:16 AST 35 U/L (0-32) H 01/08/22 02:16 ALT 21 U/L (0-33) 01/08/22 02:16 Alkaline Phosphatase 154 IU/L (35-105) H 01/08/22 02:16 C-Reactive Protein 44.5 mg/L (0.0-4.9) H 01/11/22 09:25 NT-Pro-B Natriuret Pep 98 pg/mL (0-125) 01/05/22 22:05 Total Protein 5.8 g/dL (6.6-8.7) L 01/08/22 02:16 Albumin 2.0 g/dL (3.5-5.2) L 01/08/22 02:16 Globulin 3.8 g/dL (1.3-4.6) 01/08/22 02:16 Procalcitonin 0.19 ng/mL (0-0.5) 01/08/22 02:16 TSH 0.31 uIU/mL (0.27-4.20) 01/05/22 23:20 Urine Color Yellow (Yellow) 01/06/22 09:01 Urine Appearance Hazy (CLEAR) A 01/06/22 09:01 Urine pH 6 (5-7) 01/06/22 09:01 Ur Specific [place] 1.015 (1.005-1.030) 01/06/22 09:01 Urine Protein Neg (Negative) 01/06/22 09:01 Urine Glucose (UA) Norm (Normal) 01/06/22 09:01 Urine Ketones Negative (Negative) 01/06/22 09:01 Urine Blood 3+ (Negative) H 01/06/22 09:01 Urine Nitrate Positive (Negative) H 01/06/22 09:01 Urine Bilirubin Neg (Negative) 01/06/22 09:01 Urine Urobilinogen Norm mg/dL (Negative) 01/06/22 09:01 Ur Leukocyte Esterase Trace (Negative) H 01/06/22 09:01 Urine RBC 25-40 /hpf (0-2) H 01/06/22 09:01 Urine WBC 15-25 /hpf (0-5) H 01/06/22 09:01 Ur Squamous Epith Cells 0-4 /hpf (0-5) H 01/06/22 09:01 Amorphous Sediment Not Reportable 01/06/22 09:01 Urine Bacteria 2+ /hpf (NONE) H 01/06/22 09:01 Fluid Color Pale yellow 01/07/22 Unknown Fluid Appearance Turbid 01/07/22 Unknown Fluid WBC 371175 /uL 01/07/22 Unknown Fluid RBC 789.000 10^3/uL 01/07/22 Unknown Fld Polynuclear WBCs # 378.294 01/07/22 Unknown Fld Polynuclear WBCs % 66.800 % 01/07/22 Unknown Fl Mononucl WBCs #(Auto) 188.249 01/07/22 Unknown Fl Mononuclear % Auto 33.200 % 01/07/22 Unknown Vancomycin Trough 13.7 ug/mL (10-15) 01/11/22 01:20 Vitals Last Vital Signs Temp 98.1 F 01/13/22 08:00 Pulse 85 01/13/22 08:00 Resp 16 01/13/22 08:00 BP 137/86 01/13/22 08:00 Pulse Ox 98 01/13/22 08:00 O2 Del Method 01/13/22 08:00 Discharge Plan Discharge Patient Disposition: Home Health Service Condition: Stable Prescriptions: New Stool Softener-Laxative 8.6-50 mg Tablet 2 tab PO BID Qty: 20 0RF vancomycin-water inject (PEG) 1.5 gram/300 mL Piggyback 1,500 mg continuous IV infusion Q12H Qty: 1 0RF prednisone 10 mg tablet 10 mg PO DAILY Qty: 60 0RF Rx Instructions: 40mg for 3 days then 30 mg for 3 days, 20 mg for 3 days then continue 10 mg omeprazole 10 mg capsule,delayed release(DR/EC) 10 mg PO DAILY Qty: 60 0RF lisinopril 5 mg tablet 5 mg PO DAILY Qty: 60 1RF oxycodone 5 mg tablet 5 mg PO Q8H PRN (Reason: pain) Qty: 20 0RF Continued levothyroxine 175 mcg capsule 175 mcg PO DAILY tramadol 50 mg tablet 100 mg PO TID PRN (Reason: Pain) cyclobenzaprine 10 mg tablet 10 mg PO TID PRN (Reason: muscle spasm) Qty: 90 0RF prednisone 10 mg Tablet 10 mg PO DAILY ibuprofen 800 mg Tablet 800 mg PO Q4H PRN (Reason: Pain) leflunomide 20 mg tablet 20 mg PO DAILY Qty: 30 0RF Rinvoq 15 mg tablet extended release 24 hr 15 mg PO DAILY Qty: 30 0RF Discontinued hydrochlorothiazide 25 mg tablet 25 mg PO DAILY Discharge Orders: Discharge Order (Routine); Ordered 01/13/22 Ordered By: Gilbert Telles Other Ambulatory Orders: Vancomycin Trough (WEEKLY) Timeframe: 20220224 Facility: [facility] - Location: Lab - Main Lab Ordered By: Gilbert Telles Vancomycin Trough (WEEKLY) Timeframe: 20220225 Facility: [facility] - Location: Lab - Main Lab Ordered By: Gilbert Telles Vancomycin Trough (WEEKLY) Timeframe: 20220226 Facility: [facility] - Location: Lab - Main Lab Ordered By: Gilbert Telles Vancomycin Trough (WEEKLY) Timeframe: 20220227 Facility: [facility] - Location: Lab - Main Lab Ordered By: Gilbert Telles Vancomycin Trough (WEEKLY) Timeframe: 20220228 Facility: [facility] - Location: Lab - Main Lab Ordered By: Gilbert Telles Vancomycin Trough (WEEKLY) Timeframe: 20220301 Facility: [facility] - Location: Lab - Main Lab Ordered By: Gilbert Telles DME: Miscellaneous (Order) Location: None Selected Ordered By: Gilbert Telles Referrals: [facility] [Other] [facility] ([facility]) [Outside] Kylie Stewart DO [Physician] - 01/14/22 2:15 pm WOUND CARE CLINIC, [Staff Physician] - 01/15/22 8:30 am (You will follow up with Dr Guy at the [facility]. He will follow your IV antibiotics. ) Discharge Diet: Cardiac Discharge Activity: Limit activity as instructed and As per PT/OT instructions Patient Instructions: Cellulitis, Lisinopril (By mouth) (Prinivil, Zestril), Prednisone (By mouth), Omeprazole (By mouth), Oxycodone, Rapid Release (By mouth), Vancomycin (By injection), How to Care for Your PICC (Peripherally Inserted Central Catheter) (DC), Opioid Safety Activity Restrictions/Additional Instructions: For your blood pressure I am giving you lisinopril do not take hydrochlorothiazide you will prednisone taper 40 mg for 3 days 30 mg for 3 days then 20 mg for 3 days then you will continue 10 mg daily it can cause gastric ulcers that is why I am giving you Protonix Stool softeners are added with your opioid Discharge Attestations Time Spent in Discharge Care*: less than 30 min Quality Metrics Clinical Quality Measures [ No reported AMI, CVA or VTE this stay] Coding Level of Care Code Acute Chg FW DC note Diagnoses Cellulitis of left ankle L03.116 Cellulitis of left foot L03.116 Non-pressure chronic ulcer of other part of left foot with necrosis of muscle L97.523
[2022-01-13 12:00] VITALS: BP 113/79; PULSE 85; RESP 16; TEMP 36.9; O2SAT 98
== END 2022-01-13 13:05 | disposition home health service (06) | DRG 988 ==
LOC: ER 23:17 → MEDSURG 01-06 01:09
PROVIDERS: Podiatrist Foot & Ankle Surgery; Admitting Provider Internal Medicine; Emergency Provider Emergency Medicine; PCP Nurse Practitioner; Visit Provider Internal Medicine
PROC: 0SBN0ZZ Excision of Left Metatarsal-Phalangeal Joint, Open Approach (ICD-10-PCS; principal; 2022-01-09 07:00)
DX: L03.116 Cellulitis of left lower limb (principal); D84.821 Immunodeficiency due to drugs; L02.612 Cutaneous abscess of left foot; L02.31 Cutaneous abscess of buttock; L97.523 Non-pressure chronic ulcer of other part of left foot with necrosis of muscle; M05.9 Rheumatoid arthritis with rheumatoid factor, unspecified; Z79.52 Long term (current) use of systemic steroids; I10 Essential (primary) hypertension; E03.9 Hypothyroidism, unspecified; Z96.643 Presence of artificial hip joint, bilateral; Z96.653 Presence of artificial knee joint, bilateral; F17.210 Nicotine dependence, cigarettes, uncomplicated; M43.16 Spondylolisthesis, lumbar region; Z86.14 Personal history of Methicillin resistant Staphylococcus aureus infection; Z79.891 Long term (current) use of opiate analgesic; B95.62 Methicillin resistant Staphylococcus aureus infection as the cause of diseases classified elsewhere; M24.342 Pathological dislocation of left hand, not elsewhere classified; K59.00 Constipation, unspecified
CPT/HCPCS: 10030; 36415; 36569; 49406; 51702; 71045; 73120; 73600; 73630; 73700; 73721; 80048; 80053; 80202; 80503; 81001; 83605; 83735; 83880; 84145; 84443; 84550; 85025; 85049; 85384; 85610; 85651; 85730; 86140; 87040; 87070; 87075; 87077; 87086; 87186; 87205; 89050; 93306; 93970; 96365; 96367; 96372; 96375; 97110; 97161; 97165; 97530; 99285; J1170; J1644; J1650; J1885; J2270; J2405; J2704; J2920; J3010; J3370; J3480; J3490; J7030; J7050; J7512

== ENCOUNTER → 2022-01-15 08:19 | Outpatient (BNVA) | payer MEDICARE, SELFPAY | PROVIDERS: PCP Nurse Practitioner; Visit Provider Thoracic Surgery (Cardiothoracic Vascular Surgery) | DX: I96 Gangrene, not elsewhere classified (principal); L97.422 Non-pressure chronic ulcer of left heel and midfoot with fat layer exposed; L97.322 Non-pressure chronic ulcer of left ankle with fat layer exposed | CPT/HCPCS: 11042; 80202; 82565; 84520; 97597; 99203; 99213 ==

== ENCOUNTER 2022-01-20 18:41 | Outpatient (CLI) | payer MEDICARE, SELFPAY ==
[2022-01-20 19:17] LABS: Basophils # 0.1 10^3/uL (0.0-0.1); Basophils % 0.4 %; Eosinophils # 0.1 10^3/uL (0.0-0.8); Eosinophils % 0.3 %; Hematocrit 39.7 % (37.0-47.0); Hemoglobin 12.7 g/dL (11.5-15.3); Lymphocytes # 1.1 10^3/uL (0.8-4.8); Lymphocytes % 6.7 %; Mean Corpuscular Volume 93.9 fl (81-99); Mean Platelet Volume 11.4 fL (7.4-10.4); Monocytes # 0.8 10^3/uL (0.2-0.9); Neutrophils # 14.36 10^3/uL (1.8-7.7); Neutrophils % 86.3 %; Nucleated Red Blood Cells % 0 %; Platelet Count 420 10^3/cmm (130-400); Red Blood Count 4.23 10^6/uL (4.1-5.3); Red Cell Distribution Width 14.7 % (12.1-15.1); White Blood Count 16.7 10^3/uL (4.0-10.0)
[2022-01-20 19:43] LABS: Vancomycin Trough 15.3 ug/mL (10-15)
[2022-01-20 19:44] LABS: Alanine Aminotransferase 24 U/L (0-33); Albumin Level 3.4 g/dL (3.5-5.2); Alkaline Phosphatase 105 U/L (35-105); Anion Gap 17.6 (5-19); Aspartate Amino Transferase 16 U/L (0-32); Blood Urea Nitrogen 13 mg/dL (6-20); Calcium 9.1 mg/dL (8.5-10.5); Carbon Dioxide 20 mmol/L (22-29); Chloride 104 mmol/L (98-107); Globulin 3.4 g/dL (1.3-4.6); Glomerular Filtration Rate 104.6 mL/min (90-130); Glucose 121 mg/dL (65-115); Osmolality Calculated 287 mOsm/kg (285-295); Potassium 3.6 mmol/L (3.5-5.1); Sodium 138 mmol/L (136-145); Total Bilirubin 0.2 mg/dL (0.15-1.2); Total Protein 6.8 g/dL (6.6-8.7)
== END 2022-01-20 18:42 | disposition home or self-care (01) ==
LOC: LAB 18:45
PROVIDERS: PCP Nurse Practitioner; Visit Provider Thoracic Surgery (Cardiothoracic Vascular Surgery)
DX: L97.523 Non-pressure chronic ulcer of other part of left foot with necrosis of muscle (principal)
CPT/HCPCS: 80053; 80202; 85025

== ENCOUNTER → 2022-01-22 08:58 | Outpatient (BNVA) | payer MEDICARE, SELFPAY | PROVIDERS: PCP Nurse Practitioner; Visit Provider Thoracic Surgery (Cardiothoracic Vascular Surgery) | DX: L97.522 Non-pressure chronic ulcer of other part of left foot with fat layer exposed (principal); I96 Gangrene, not elsewhere classified; L97.322 Non-pressure chronic ulcer of left ankle with fat layer exposed | CPT/HCPCS: 11042; 97597; A6251 ==

== ENCOUNTER → 2022-01-24 15:27 | Outpatient (BNVA) | payer MEDICARE, SELFPAY | PROVIDERS: PCP Nurse Practitioner; Visit Provider Surgery | DX: L97.422 Non-pressure chronic ulcer of left heel and midfoot with fat layer exposed (principal); L97.322 Non-pressure chronic ulcer of left ankle with fat layer exposed; I96 Gangrene, not elsewhere classified | CPT/HCPCS: 29445; A6252 ==

== ENCOUNTER 2022-01-27 14:03 | Outpatient (CLI) | payer MEDICARE, SELFPAY ==
[2022-01-27 14:15] LABS: Basophils # 0.1 10^3/uL (0.0-0.1); Basophils % 0.7 %; Eosinophils # 0.4 10^3/uL (0.0-0.8); Eosinophils % 2.3 %; Hemoglobin 12.6 g/dL (11.5-15.3); Lymphocytes # 1.1 10^3/uL (0.8-4.8); Lymphocytes % 6.3 %; Mean Corpuscular HGB Conc 31.5 g/dL (30.0-36.0); Mean Corpuscular Hemoglobin 30.1 pg (28.0-34.0); Mean Corpuscular Volume 95.5 fl (81-99); Mean Platelet Volume 11.2 fL (7.4-10.4); Monocytes # 1.1 10^3/uL (0.2-0.9); Monocytes % 6.2 %; Neutrophils # 14.23 10^3/uL (1.8-7.7); Neutrophils % 82.6 %; Nucleated Red Blood Cells % 0 %; Platelet Count 325 10^3/cmm (130-400); Red Blood Count 4.19 10^6/uL (4.1-5.3); Red Cell Distribution Width 14.9 % (12.1-15.1); White Blood Count 17.2 10^3/uL (4.0-10.0)
[2022-01-27 14:41] LABS: Alanine Aminotransferase 14 U/L (0-33); Albumin Level 3.2 g/dL (3.5-5.2); Alkaline Phosphatase 103 U/L (35-105); Anion Gap 17.9 (5-19); Aspartate Amino Transferase 12 U/L (0-32); Blood Urea Nitrogen 14 mg/dL (6-20); Calcium 8.8 mg/dL (8.5-10.5); Carbon Dioxide 21 mmol/L (22-29); Chloride 104 mmol/L (98-107); Globulin 3.2 g/dL (1.3-4.6); Glomerular Filtration Rate 87.5 mL/min (90-130); Glucose 124 mg/dL (65-115); Osmolality Calculated 290 mOsm/kg (285-295); Potassium 3.9 mmol/L (3.5-5.1); Sodium 139 mmol/L (136-145); Total Bilirubin 0.2 mg/dL (0.15-1.2); Total Protein 6.4 g/dL (6.6-8.7)
[2022-01-27 14:42] LABS: Vancomycin Trough 21.2 ug/mL (10-15)
== END 2022-01-27 14:04 | disposition home or self-care (01) ==
LOC: LAB 14:04
PROVIDERS: PCP Nurse Practitioner; Visit Provider Thoracic Surgery (Cardiothoracic Vascular Surgery)
DX: I96 Gangrene, not elsewhere classified (principal); L97.422 Non-pressure chronic ulcer of left heel and midfoot with fat layer exposed; L97.322 Non-pressure chronic ulcer of left ankle with fat layer exposed
CPT/HCPCS: 11042; 80053; 80202; 85025; 97597; A6251

== ENCOUNTER 2022-01-28 08:03 | Outpatient (CLI) | payer MEDICARE, SELFPAY ==
[2022-01-28 08:35] LABS: Vancomycin Trough 14.1 ug/mL (10-15)
== END 2022-01-28 08:04 | disposition home or self-care (01) ==
PROVIDERS: PCP Nurse Practitioner; Visit Provider Thoracic Surgery (Cardiothoracic Vascular Surgery)
DX: A41.02 Sepsis due to Methicillin resistant Staphylococcus aureus (principal)
CPT/HCPCS: 80202

== ENCOUNTER → 2022-01-30 14:57 | Outpatient (BNVA) | payer MEDICARE, SELFPAY | PROVIDERS: PCP Nurse Practitioner; Visit Provider Nurse Practitioner Family | DX: I96 Gangrene, not elsewhere classified (principal); L97.422 Non-pressure chronic ulcer of left heel and midfoot with fat layer exposed; L97.322 Non-pressure chronic ulcer of left ankle with fat layer exposed | CPT/HCPCS: 29445 ==

== ENCOUNTER → 2022-02-04 13:49 | Outpatient (BNVA) | payer MEDICARE, SELFPAY | PROVIDERS: PCP Nurse Practitioner; Visit Provider Nurse Practitioner Family | DX: I96 Gangrene, not elsewhere classified (principal); L97.522 Non-pressure chronic ulcer of other part of left foot with fat layer exposed; L97.322 Non-pressure chronic ulcer of left ankle with fat layer exposed | CPT/HCPCS: 11042; A6197; A6252 ==

== ENCOUNTER → 2022-02-06 14:55 | Outpatient (BNVA) | payer MEDICARE, SELFPAY | PROVIDERS: PCP Nurse Practitioner; Visit Provider Nurse Practitioner Family | DX: I96 Gangrene, not elsewhere classified (principal); L97.522 Non-pressure chronic ulcer of other part of left foot with fat layer exposed; L97.422 Non-pressure chronic ulcer of left heel and midfoot with fat layer exposed; L97.322 Non-pressure chronic ulcer of left ankle with fat layer exposed | CPT/HCPCS: 11042 ==

== ENCOUNTER 2022-02-10 08:35 | Outpatient (CLI) | payer MEDICARE, SELFPAY ==
[2022-02-03 08:52] LABS: Basophils # 0.1 10^3/uL (0.0-0.1); Eosinophils # 0.4 10^3/uL (0.0-0.8); Eosinophils % 2.9 %; Hematocrit 41.2 % (37.0-47.0); Lymphocytes # 2.8 10^3/uL (0.8-4.8); Lymphocytes % 19.7 %; Mean Corpuscular HGB Conc 31.6 g/dL (30.0-36.0); Mean Corpuscular Hemoglobin 30.2 pg (28.0-34.0); Mean Corpuscular Volume 95.8 fl (81-99); Mean Platelet Volume 11.8 fL (7.4-10.4); Monocytes # 1.4 10^3/uL (0.2-0.9); Monocytes % 9.9 %; Neutrophils # 9.23 10^3/uL (1.8-7.7); Neutrophils % 64.2 %; Nucleated Red Blood Cells % 0 %; Platelet Count 328 10^3/cmm (130-400); Red Cell Distribution Width 15.2 % (12.1-15.1); White Blood Count 14.4 10^3/uL (4.0-10.0)
[2022-02-03 09:06] LABS: Alanine Aminotransferase 11 U/L (0-33); Albumin Level 3.3 g/dL (3.5-5.2); Alkaline Phosphatase 105 U/L (35-105); Anion Gap 16.1 (5-19); Aspartate Amino Transferase 11 U/L (0-32); Blood Urea Nitrogen 12 mg/dL (6-20); Calcium 9.2 mg/dL (8.5-10.5); Carbon Dioxide 25 mmol/L (22-29); Chloride 104 mmol/L (98-107); Globulin 3.4 g/dL (1.3-4.6); Glomerular Filtration Rate 87.5 mL/min (90-130); Glucose 81 mg/dL (65-115); Osmolality Calculated 291 mOsm/kg (285-295); Potassium 4.1 mmol/L (3.5-5.1); Sodium 141 mmol/L (136-145); Total Bilirubin 0.2 mg/dL (0.15-1.2); Total Protein 6.7 g/dL (6.6-8.7)
[2022-02-03 09:07] LABS: Vancomycin Trough 12.8 ug/mL (10-15)
[2022-02-10 08:51] LABS: Basophils # 0.2 10^3/uL (0.0-0.1); Eosinophils # 0.4 10^3/uL (0.0-0.8); Eosinophils % 2.3 %; Hematocrit 40.3 % (37.0-47.0); Hemoglobin 12.7 g/dL (11.5-15.3); Lymphocytes # 2.9 10^3/uL (0.8-4.8); Lymphocytes % 17.9 %; Mean Corpuscular HGB Conc 31.5 g/dL (30.0-36.0); Mean Corpuscular Hemoglobin 30.1 pg (28.0-34.0); Mean Corpuscular Volume 95.5 fl (81-99); Mean Platelet Volume 12.3 fL (7.4-10.4); Monocytes # 1.4 10^3/uL (0.2-0.9); Monocytes % 8.5 %; Neutrophils # 11.14 10^3/uL (1.8-7.7); Nucleated Red Blood Cells % 0 %; Platelet Count 309 10^3/cmm (130-400); Red Blood Count 4.22 10^6/uL (4.1-5.3); Red Cell Distribution Width 15.3 % (12.1-15.1); White Blood Count 16.4 10^3/uL (4.0-10.0)
[2022-02-10 09:08] LABS: Vancomycin Trough 19.9 ug/mL (10-15)
[2022-02-10 09:13] LABS: Alanine Aminotransferase 11 U/L (0-33); Albumin Level 3.5 g/dL (3.5-5.2); Alkaline Phosphatase 112 U/L (35-105); Aspartate Amino Transferase 14 U/L (0-32); Blood Urea Nitrogen 8 mg/dL (6-20); Calcium 8.8 mg/dL (8.5-10.5); Carbon Dioxide 24 mmol/L (22-29); Chloride 107 mmol/L (98-107); Globulin 3.1 g/dL (1.3-4.6); Glomerular Filtration Rate 129.1 mL/min (90-130); Glucose 87 mg/dL (65-115); Osmolality Calculated 290 mOsm/kg (285-295); Sodium 141 mmol/L (136-145); Total Bilirubin 0.2 mg/dL (0.15-1.2); Total Protein 6.6 g/dL (6.6-8.7)
== END 2022-02-10 08:36 | disposition home or self-care (01) ==
PROVIDERS: PCP Nurse Practitioner; Visit Provider Thoracic Surgery (Cardiothoracic Vascular Surgery)
DX: L97.523 Non-pressure chronic ulcer of other part of left foot with necrosis of muscle (principal); I96 Gangrene, not elsewhere classified; L97.522 Non-pressure chronic ulcer of other part of left foot with fat layer exposed; L97.422 Non-pressure chronic ulcer of left heel and midfoot with fat layer exposed; L97.322 Non-pressure chronic ulcer of left ankle with fat layer exposed
CPT/HCPCS: 11042; 80053; 80202; 85025

== ENCOUNTER 2022-02-17 06:00 | Outpatient (CLI) | payer MEDICARE, SELFPAY | END 2022-02-17 23:00 | LOC: LAB 03-31 13:17 | PROVIDERS: PCP Family Medicine; Visit Provider Thoracic Surgery (Cardiothoracic Vascular Surgery) | DX: I96 Gangrene, not elsewhere classified (principal); L97.422 Non-pressure chronic ulcer of left heel and midfoot with fat layer exposed | CPT/HCPCS: 11042 ==

== ENCOUNTER 2022-02-17 08:56 | Outpatient (CLI) | payer MEDICARE, SELFPAY ==
[2022-02-17 09:11] LABS: Basophils # 0.1 10^3/uL (0.0-0.1); Basophils % 0.8 %; Eosinophils # 0.5 10^3/uL (0.0-0.8); Eosinophils % 2.8 %; Hematocrit 40.6 % (37.0-47.0); Hemoglobin 12.8 g/dL (11.5-15.3); Lymphocytes # 2.9 10^3/uL (0.8-4.8); Lymphocytes % 18.2 %; Mean Corpuscular HGB Conc 31.5 g/dL (30.0-36.0); Mean Corpuscular Volume 95.1 fl (81-99); Mean Platelet Volume 12.3 fL (7.4-10.4); Monocytes # 1.5 10^3/uL (0.2-0.9); Monocytes % 9.5 %; Neutrophils # 10.56 10^3/uL (1.8-7.7); Neutrophils % 66.8 %; Nucleated Red Blood Cells % 0 %; Platelet Count 353 10^3/cmm (130-400); Red Blood Count 4.27 10^6/uL (4.1-5.3); Red Cell Distribution Width 15.6 % (12.1-15.1); White Blood Count 15.8 10^3/uL (4.0-10.0)
[2022-02-17 09:31] LABS: Alanine Aminotransferase 12 U/L (0-33); Albumin Level 3.5 g/dL (3.5-5.2); Alkaline Phosphatase 114 U/L (35-105); Anion Gap 17.6 (5-19); Aspartate Amino Transferase 15 U/L (0-32); Blood Urea Nitrogen 10 mg/dL (6-20); Calcium 9.3 mg/dL (8.5-10.5); Carbon Dioxide 21 mmol/L (22-29); Chloride 104 mmol/L (98-107); Globulin 3.5 g/dL (1.3-4.6); Glomerular Filtration Rate 87.5 mL/min (90-130); Glucose 91 mg/dL (65-115); Osmolality Calculated 287 mOsm/kg (285-295); Potassium 3.6 mmol/L (3.5-5.1); Sodium 139 mmol/L (136-145); Total Bilirubin 0.3 mg/dL (0.15-1.2)
== END 2022-02-17 08:57 | disposition home or self-care (01) ==
LOC: LAB 08:57
PROVIDERS: PCP Family Medicine; Visit Provider Thoracic Surgery (Cardiothoracic Vascular Surgery)
DX: L97.523 Non-pressure chronic ulcer of other part of left foot with necrosis of muscle (principal)
CPT/HCPCS: 80053; 80202; 85025

== ENCOUNTER → 2022-02-24 14:12 | Outpatient (BNVA) | payer MEDICARE, SELFPAY | PROVIDERS: PCP Family Medicine; Visit Provider Thoracic Surgery (Cardiothoracic Vascular Surgery) | DX: I96 Gangrene, not elsewhere classified (principal); L97.422 Non-pressure chronic ulcer of left heel and midfoot with fat layer exposed | CPT/HCPCS: 97597; A6021 ==

== ENCOUNTER → 2022-02-25 13:57 | Outpatient (BNVA) | payer MEDICARE, SELFPAY | PROVIDERS: PCP Family Medicine; Visit Provider Family Medicine | DX: E87.1 Hypo-osmolality and hyponatremia (principal); M25.562 Pain in left knee; E03.9 Hypothyroidism, unspecified | CPT/HCPCS: 80048; 84439; 84443 ==

== ENCOUNTER → 2022-03-03 15:56 | Outpatient (BNVA) | payer MEDICARE, SELFPAY | PROVIDERS: PCP Family Medicine; Visit Provider Nurse Practitioner Family | DX: Z86.19 Personal history of other infectious and parasitic diseases (principal); M25.551 Pain in right hip; M25.562 Pain in left knee; Z09 Encounter for follow-up examination after completed treatment for conditions other than malignant neoplasm | CPT/HCPCS: 73522; 73560; 73565; 87070; 99212; 99214; A6212 ==

== ENCOUNTER 2022-05-09 09:34 | Inpatient (IN) | payer MEDICARE, SELFPAY ==
[2022-05-09] VITALS (12 sets, daily range): BP systolic 106–203; BP diastolic 61–100; PULSE 69–105; RESP 16–19; TEMP 37.1; O2SAT 96–99; BMI 35.4
--- NOTE | 2022-05-09 09:52 | USCV_ITS ---
Kristine Barbosa Age: 51 Gender: F : 1970 Exam Date: 05/09/2022 10:28 Ordering Phys: Slick Arredondo DO Technologist: Leo Pozo [place] [facility]: LLE SWELLING HISTORY: Lower extremity swelling. PROCEDURES: Venous duplex imaging was performed in only the left lower extremity. The following venous structures were evaluated: common femoral vein, profunda vein, proximal portion of the greater saphenous vein, superficial femoral vein, and the popliteal vein. In addition, the posterior tibial and peroneal trunk were evaluated. Serial compression, augmentation maneuvers, and spectral Doppler flow evaluation were performed. FINDINGS: Normal 2-D Doppler and augmentation and compressibility throughout the lower extremity venous structures. Additional imaging through the proximal calf veins also reveals no thrombus. Limited evaluation of the greater saphenous vein is patent with no thrombus. CONCLUSIONS No DVT left lower extremity. Dr. Mildred Garcia DO (Electronically Signed) Final Date: 09 May 2022 16:31 S
--- NOTE | 2022-05-09 10:08 | XR_ITS ---
WS: [id number] EXAMINATION: XR knee LT 3V* [id number] REASON FOR EXAM: pain COMPARISON: 03/03/2022 ORDER DATE: 05/09/2022 10:10 AM FINDINGS: There is satisfactory alignment of the prostheses at the knee joint. There is satisfactory prosthesis positioning of the total knee replacement components. There is no sign of periprosthetic osseous abn ormality or hardware failure. Essentially complete resolution of the previously large joint effusion. Continued soft tissue edema.. XR/XR knee LT 3V* [id number] IMPRESSION: Stable appearance of the total knee arthroplasty. Resolution of the previous la rge joint effusion. Residual soft tissue edema
--- NOTE | 2022-05-09 10:08 | XR_ITS ---
WS: [id number] Left ankle, 3 views, 05/09/2022 Clinical Data: pain Comparison: Left ankle, 01/08/2022 Findings: No fractures or dislocations are seen. The ankle mortise is normal. The talus and calcaneus are unrem arkable. There is soft tissue swelling over the medial and lateral malleolus.. Additional soft tissue swelling over the dorsum of the foot is present. There is a small Achilles spur. XR/XR ankle LT min 3V* [id number] Impression: Soft tissue swelling over the medial and lateral malleolus and, in addition, ov er the dorsum of the left foot.
--- NOTE | 2022-05-09 10:11 | ED_ITS ---
HPI - Extremity Problem General: Chief complaint: Extremity Problem,Nontraumatic Stated complaint: Leg infection Time Seen by Provider: 05/09/22 09:46 Source: patient Mode of arrival: ambulatory History of Present Illness: 51-year-old female presents to the emergency room with pain in her leg. Patient relates having significant amount of purulent drainage her friend showed me a cell phone photo just some purulence on the floor but no picture of where it was coming out of her ankle to refer to the posterior aspect of the left ankle it also had some swelling. In December of this year she was admitted at that time she had a right gluteal abscess. They evaluated the hip and there was no sign of infection in that joint. Patient states she was concerned there is infection in the knee podiatry was consulted that time evidently drained some purulent blistering in the foot that did grow out MRSA the wound culture from the buttock wound also grew out MRSA she was started on a PICC line given 6 weeks of vancomycin. Over the last several days she has had increased swelling with no fever. She did not take her antihypertensives quite hypertensive on arrival this morning. MD Complaint: joint swelling and joint pain Onset (ago): day(s) Pain Consistency: constant Location: left (Ankle) Relieving factors: nothing Exacerbating factors: nothing Associated symptoms: Reports arthralgias, fever(s) and myalgias; Deny chest pain or rash Review of Systems Const: Reports: fever(s) ENMT: Denies: throat pain, ear or mastoid pain, nasal discharge or nasal congestion Card: Denies: chest pain Resp: Denies: dyspnea, productive cough or non-productive cough GI: Denies: abdominal pain, nausea, vomiting, hematemesis, coffee ground emesis, diarrhea, constipation, bloating, hematochezia or melena : Denies: flank pain, difficulty voiding, dysuria, urinary frequency or urinary urgency Musc: Reports: joint pain, joint swelling and limited range of motion Skin/Breast: Denies: rash or pruritus PFSH ED PFSH: Medical History Chronic steroid use High risk medication use Hip pain, right Hypertension Hypothyroidism Immunization counseling Leukocytosis Rheumatoid arthritis Rheumatoid arthritis flare Seropositive rheumatoid arthritis of multiple sites Spondylolisthesis at L4-L5 level Surgical History History of foot surgery x5 right History of hand surgery 2right hand, 1 left hand History of hip replacement, total bilateral Status post incision and drainage Status post left knee replacement Family History Other CAD (coronary artery disease) Cancer Hyperlipidemia Hypertension Denies family history of Rheumatoid arthritis Diabetes Lupus Chronic kidney disease (CKD) Lung disease Stroke Social History Smoking and tobacco status: never smoked History of recent travel: No Physical Exam Const: COMMON NORMALS: no acute distress GENERAL APPEARANCE: cooperative and comfortable ORIENTATION/CONSCIOUSNESS: Yes awake, Yes oriented to person, Yes oriented to place and Yes oriented to time HENMT: COMMON NORMALS: normocephalic, atraumatic and hearing grossly normal bilaterally HEAD & SCALP: normocephalic and atraumatic Resp: COMMON NORMALS: normal respiratory effort, No retractions, No use of accessory muscles and clear to auscultation bilaterally AUSCULTATION: clear to auscultation bilaterally Cardio: COMMON NORMALS: regular rate, regular rhythm and No murmurs present (Cardio) RATE: regular rate RHYTHM: regular rhythm GI: COMMON NORMALS: Soft to palpation and No hepatosplenomegaly present AUSCULTATION: Yes normoactive bowel sounds PALPATION: Yes Soft to palpation, No Tenderness to palpation present (GI), No Guarding due to palpation present (GI) and Yes No hepatosplenomegaly present Extremity: OTHER: Left ankle pain 2+ edema of the left ankle slightly less in the right ankle. No open wounds that I can visualize or significant scar tissue. Patient indicates aperient drainage can put from a tract posteriorly. Slightly warm to touch no erythema. Neuro: SENSORIUM/ORIENTATION: Yes oriented to person, Yes oriented to place and Yes oriented to time Skin: COMMON NORMALS: no rashes or lesions noted GENERAL SKIN EXAM: no rashes or lesions noted Course Vital Signs: Vital signs: Vital Signs Temperature 98.2 F 05/13/22 05:42 Pulse Rate 75 05/13/22 05:42 Respiratory Rate 17 05/13/22 05:42 Blood Pressure 105/73 05/13/22 05:42 Pulse Oximetry 95 05/13/22 05:42 Oxygen Delivery Me thod 05/12/22 20:00 Oxygen Flow Rate 6 05/12/22 18:05 MDM - Extremity (Nontraumatic) Medical Decision Making Abscess in the right foot, CT notes abscess with osteomyelitic changes at the base of the right metatarsal, with an elevated white count cultures been done started on vancomycin. Initially seen the patient to complain primarily of left foot pain part I went back and talked to the patient she is now having complai nts of right hip pain. She had previously been admitted in December for a gluteal abscess. Reexamined the patient with the assistance of the nurse there is no evidence of any skin breakdown ulceration palpable nodules or fluctuant areas over the right buttock. She now has a new complaint of severe right hip pain. We will x-ray her hip she denies any trauma to that area she states its been causing severe pain since she was in the hospital in December of this year. Plain films are negative pain persist patient may need to more advanced imaging. Unfortunately I noted in note room fast food bags and wrappers. Asked the patient she stated she had eaten while she was in the ER. This was relayed to Dr. Mayen for planning for surgery. Medical Records I reviewed the patient's medical records. Lab Data I reviewed the patient's lab results. 05/09/22 10:03 05/09/22 10:03 Radiology Impressions Ankle X-Ray 05/09/22 10:08 Impression: Soft tissue swelling over the medial and lateral malleolus and, in addition, over the dorsum of the left foot. Knee X-Ray 05/09/22 10:08 IMPRESSION: Stable appearance of the total knee arthroplasty. Resolution of the previous large joint effusion. Residual soft tissue edema Soft Tissue Ultrasound 05/09/22 10:17 IMPRESSION: Prominent edema in the anterior medial ankle soft tissue. Ankle CT 05/09/22 11:35 IMPRESSION: PROMINENT SOFT TISSUE EDEMA LYTIC CHANGE IN THE FIFTH METATARSAL HEAD CONSISTENT WITH OSTEOMYELITIS PLANTAR SUBCUTANEOUS ABSCESS OVERALL 2 CM IN SIZE WITH SMALL CENTRAL FLUID COLLECTION AT THE LEVEL OF THE FIFTH METATARSAL HEAD INCOMPLETELY IMAGED Pelvis X-Ray 05/09/22 14:18 Impression: 1. Stable bilateral hip arthroplasties. 2. Contrast material in urinary bladder. Hip/Pelvis X-Ray 05/09/22 22:23 IMPRESSION: No acute finding. Hip CT 05/10/22 14:11 IMPRESSION: 1. Extremely large right lateral hip fluid collection as described, which may be due to postop hematoma, seroma, or abscess. This is deep to the subcutaneous tissue and appears involve the muscular layers/fascia. 2. Right hip arthroplasty. Negative for acute fracture. Full details above. Knee CT 05/10/22 14:11 IMPRESSION: 1. Multiple fluid collections about the knee, which do raise strong concern for multifocal abscesses and may imply a septic joint. Advise orthopedic consultation. 2. Diffuse osteopenia with arthroplasty. No acute fracture or focal bone destruction identified. 3. Diffuse subcutaneous edema. 4. Skin lesion at the posterolateral knee, as on series 4, image 57. Advise correlation with direct visual exam. This may be due to scar, skin lesion, or area of postop change. Foot MRI 05/12/22 09:00 IMPRESSION: 1. Soft tissue ulcerations along the plantar and lateral fifth metatarsal head. These ulcerations extend to the cortex of the fifth metatarsal head. 2. There is edema but no enhancement associated with the plantar surface of the fifth metatarsal head measuring 3 x 8 mm. Even without enhancement suspicious for early osteomyelitis. 3. Diffuse cellulitis throughout the foot and in the soft tissues posterior to the talus and calcaneus. Lower Extremity MRI 05/12/22 09:00 IMPRESSION: 1. Quality of this examination is severely limited. 2. There is diffuse cellulitis but no focal fluid collections or enhancement to suggest an abscess. No marrow edema. 3. Small focal abscesses or osteomyelitis may not be evident due to the suboptimal quality of this examination. Laboratory Results WBC 17.8 10^3/uL (4.0-10.0) H 05/09/22 10:03 RBC 5.14 10^6/uL (4.1-5.3) 05/09/22 10:03 Hgb 15.0 g/dL (11.5-15.3) 05/09/22 10:03 Hct 45.7 % (37.0-47.0) 05/09/22 10:03 MCV 88.9 fl (81-99) 05/09/22 10:03 MCH 29.2 pg (28.0-34.0) 05/09/22 10:03 MCHC 32.8 g/dL (30.0-36.0) 05/09/22 10:03 RDW 15.6 % (12.1-15.1) H 05/09/22 10:03 Plt Count 336 10^3/cmm (130-400) 05/09/22 10:03 MPV 10.9 fL (7.4-10.4) H 05/09/22 10:03 Neut % (Auto) 75.2 % 05/09/22 10:03 Lymph % (Auto) 10.0 % 05/09/22 10:03 [place] % (Auto) 10.1 % 05/09/22 10:03 Eos % (Auto) 2.5 % 05/09/22 10:03 Baso % (Auto) 1.1 % 05/09/22 10:03 Neut # (Auto) 13.35 10^3/uL (1.8-7.7) H 05/09/22 10:03 Lymph # (Auto) 1.8 10^3/uL (0.8-4.8) 05/09/22 10:03 [place] # (Auto) 1.8 10^3/uL (0.2-0.9) H 05/09/22 10:03 Eos # (Auto) 0.5 10^3/uL (0.0-0.8) 05/09/22 10:03 Baso # (Auto) 0.2 10^3/uL (0.0-0.1) H 05/09/22 10:03 Nucleated RBC % (auto) 0 % 05/09/22 10:03 Nucleated RBCs # 0.0 /100WBC 05/09/22 10:03 ESR 10 mm/hr (0-15) 05/09/22 10:03 Sodium 138 mmol/L (136-145) 05/09/22 10:03 Potassium 3.6 mmol/L (3.5-5.1) 05/09/22 10:03 Chloride 104 mmol/L (98-107) 05/09/22 10:03 Carbon Dioxide 22 mmol/L (22-29) 05/09/22 10:03 Anion Gap 15.6 (5-19) 05/09/22 10:03 BUN 9 mg/dL (6-20) 05/09/22 10:03 Creatinine 0.6 mg/dL (0.5-0.9) 05/09/22 10:03 GFR Calculation 104.6 mL/min (90-130) 05/09/22 10:03 Glucose 102 mg/dL (65-115) 05/09/22 10:03 Calculated Osmolality 285 mOsm/kg (285-295) 05/09/22 10:03 Lactic Acid 1.4 mmol/L (0.5-2.2) 05/09/22 10:03 Calcium 9.9 mg/dL (8.5-10.5) 05/09/22 10:03 Total Bilirubin 0.2 mg/dL (0.15-1.2) 05/09/22 10:03 AST 19 U/L (0-32) 05/09/22 10:03 ALT 18 U/L (0-33) 05/09/22 10:03 Alkaline Phosphatase 171 U/L (35-105) H 05/09/22 10:03 C-Reactive Protein 32.0 mg/L (0.0-4.9) H 05/09/22 10:03 Total Protein 6.9 g/dL (6.6-8.7) 05/09/22 10:03 Albumin 3.2 g/dL (3.5-5.2) L 05/09/22 10:03 Globulin 3.7 g/dL (1.3-4.6) 05/09/22 10:03 Discharge Plan Discharge Patient Disposition: Admitted As Inpatient Admit Provider: Mendel Jacome Clinical Impression: Cellulitis of left foot, Rheumatoid arthritis, Osteomyelitis of metatarsal Condition: Stable Coding Level of Care Code ED [employer] Business 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
--- NOTE | 2022-05-09 10:17 | US_ITS ---
WS: [id number] EXAMINATION: US soft tissue/extremity [id number] REASON FOR EXAM: Left ankle COMPARISON: None available. ORDER DATE: 05/09/2022 10:17 AM TECHNIQUE: General ultrasound survey of the left ankle FINDINGS: There is diffuse subcutaneous edema which is most prominent in the anterior and medial soft tissues. There is shadowing at the osseous interfaces but there was no evidence of ankle effusion. US/US soft tissue/extremity [id number] IMPRESSION: Prominent edema in the anterior medial ankle soft tissue.
[2022-05-09 10:20] LABS: Basophils # 0.2 10^3/uL (0.0-0.1); Basophils % 1.1 %; Eosinophils # 0.5 10^3/uL (0.0-0.8); Eosinophils % 2.5 %; Hematocrit 45.7 % (37.0-47.0); Lymphocytes # 1.8 10^3/uL (0.8-4.8); Mean Corpuscular HGB Conc 32.8 g/dL (30.0-36.0); Mean Corpuscular Hemoglobin 29.2 pg (28.0-34.0); Mean Corpuscular Volume 88.9 fl (81-99); Mean Platelet Volume 10.9 fL (7.4-10.4); Monocytes # 1.8 10^3/uL (0.2-0.9); Monocytes % 10.1 %; Neutrophils # 13.35 10^3/uL (1.8-7.7); Neutrophils % 75.2 %; Nucleated Red Blood Cells % 0 %; Platelet Count 336 10^3/cmm (130-400); Red Blood Count 5.14 10^6/uL (4.1-5.3); Red Cell Distribution Width 15.6 % (12.1-15.1); White Blood Count 17.8 10^3/uL (4.0-10.0)
[2022-05-09 10:28] LABS: Erythrocyte Sedimentation Rate 10 mm/hr (0-15)
[2022-05-09 10:40] LABS: Lactic Sepsis W/Reflex 1.4 mmol/L (0.5-2.2)
[2022-05-09 10:41] LABS: Alanine Aminotransferase 18 U/L (0-33); Albumin Level 3.2 g/dL (3.5-5.2); Alkaline Phosphatase 171 U/L (35-105); Anion Gap 15.6 (5-19); Aspartate Amino Transferase 19 U/L (0-32); Blood Urea Nitrogen 9 mg/dL (6-20); Calcium 9.9 mg/dL (8.5-10.5); Carbon Dioxide 22 mmol/L (22-29); Chloride 104 mmol/L (98-107); Globulin 3.7 g/dL (1.3-4.6); Glomerular Filtration Rate 104.6 mL/min (90-130); Glucose 102 mg/dL (65-115); Osmolality Calculated 285 mOsm/kg (285-295); Potassium 3.6 mmol/L (3.5-5.1); Sodium 138 mmol/L (136-145); Total Bilirubin 0.2 mg/dL (0.15-1.2); Total Protein 6.9 g/dL (6.6-8.7)
[2022-05-09] MEDS: morphine 4 mg/mL SDV 1 mL IVP ×4 (11:07→20:19)
[2022-05-09] MEDS: labetalol 5 mg/mL SDV 20mL 10 MG IVP (11:09)
[2022-05-09] MEDS: amlodipine 10 mg Tablet PO (11:11)
[2022-05-09] MEDS: lisinopril 20 mg Tablet PO (11:11)
--- NOTE | 2022-05-09 11:35 | CT_ITS ---
WS: [id number] EXAMINATION: CT ankle LT w con [id number] REASON FOR EXAM: pain swelling, purulent drainage COMPARISON: None available. ORDER DATE: 05/09/2022 11:41 AM TOTAL EXAM DLP All CT scans at [facility] use at least one of these dose optimization techniques: automated ex posure control; mA and/or kV adjustment per patient size (includes targeted exams where dose is match ed to clinical indication); or iterative reconstruction. TECHNIQUE: 2-D CT imaging of the left ankle/foot as above is obtained with the use of 100 mL of Optir ay 350 COMPARISON: Recent routine radiography FINDINGS: Axial , sagittal and coronal imaging is obtained. Findings are exclusively described for the affected side unless otherwise specified. There is mild ankle joint space narrowing. There is no evidence of acute fracture, dislocation, or lora int effusion Subtalar joint unremarkable. Achilles tendon appears to be intact. There is no evidence of retrocalcaneal bursitis. Circumferential lytic change with disruption of the cortex of the fifth metatarsal head with expansio n of the intramedullary space is noted.. There is marked dorsal subcutaneous edema which extends caud ally from the lower leg/ankle along the plantar aspect of the foot adjacent to the fifth MTP joint is a soft tissue ulceration partially imaged cannot rule out a small abscess with mild contrast-enhance d somewhat thick rim. CT/CT ankle LT w con [id number] IMPRESSION: PROMINENT SOFT TISSUE EDEMA LYTIC CHANGE IN THE FIFTH METATARSAL HEAD CONSISTENT WITH OSTEOMYELITIS PLANTAR SUBCUTANEOUS ABSCESS OVERALL 2 CM IN SIZE WITH SMALL CENTRAL FLUID TIMUR ECTION AT THE LEVEL OF THE FIFTH METATARSAL HEAD INCOMPLETELY IMAGED
[2022-05-09] MEDS: iohexol 350 mg/mL 500 mL Btl (per mL) IV (11:51)
--- NOTE | 2022-05-09 11:51 | PC.PHAR ---
pt states she takes care of her own medications-pt states she only took one dose of cymbalta 30mg on 04/30/22 pt states it gave her diarrhea and she couldnt get up to use the bathroom
[2022-05-09] MEDS: vancomycin 1,000 MG in sodium chloride 0.9% 250 ML 250 MG IV (11:58)
--- NOTE | 2022-05-09 14:18 | XR_ITS ---
WS: [id number] Pelvis, 2 views, 05/09/2022 Clinical Data: pain Comparison: Pelvis and both hips, 03/03/2022 Findings: Bilateral hip arthroplasties are in good position. No loosening or periprosthetic fractures are seen. There is contrast material within the bladder. The SI joints are not remarkable. There are no pelvic fractures. The soft tissues are normal. XR/XR pelvis 1-2V* [id number] Impression: 1. Stable bilateral hip arthroplasties. 2. Contrast material in urinary bladder.
--- NOTE | 2022-05-09 16:27 | PM.CONSULT ---
Providers/Reason For Consult Consulting Physician/Specialty*: Podiatry Reason for Consult*: Left foot abscess Attending Physician: Mendel Jacome MD Primary Care Provider: Kylie Stewart DO History of Present Illness History of Present Illness Kristine Barbosa is a 51 year old female who presents to the emergency department today with chief complaint of leg infection . Patient has had multiple surgeries on bilateral feet. Earlier this year, she had a wound to the left fifth metatarsal phalangeal joint area which has since healed through wound care. Over the course of the past week she has noticed more swelling and redness to her left foot. She came to the emergency department today for further work-up and evaluation. In December of this year she was admitted for a right gluteal abscess. She was placed on a PICC line at that time and received 6 weeks of vancomycin. She denies any subjective fever, chills, nausea, vomiting. She is also concerned about some small purulent vesicular lesions to the dorsum of her right foot. She states that these have popped up over the course of the past week as well. Work-up was performed in the emergency department and she was found to have a small abscess of the left foot based on CT imaging. Podiatry was consulted to provide further recommendations. Review of Systems General: Reports: 10 or more systems reviewed and unremarkable except in HPI and below Const: Denies: fever(s), chills, body aches or change in appetite Eyes: Denies: change in vision or blurry vision Card: Denies: chest pain, palpitations or irregular heart rhythm Resp: Denies: dyspnea GI: Denies: abdominal pain, nausea, vomiting or diarrhea Musc: Reports: joint stiffness Skin/Breast: Reports: non-healing lesions and lesions Neuro: Reports: numbness in extremities Medications/Allergies Home Medications Medication Instructions Recorded Confirmed Last Taken Type tramadol 50 mg tablet 100 mg PO TID PRN Pain 03/14/20 05/09/22 05/09/22 04:00 History cyclobenzaprine 10 mg tablet 10 mg PO TID PRN muscle spasm #90 01/02/22 05/09/22 01/05/22 08:00 Rx tabs ibuprofen 800 mg tablet 800 mg PO Q4H PRN Pain 01/06/22 05/09/22 01/05/22 18:00 History prednisone 10 mg tablet 10 mg PO DAILY@12 01/06/22 05/09/22 05/08/22 History walker adjustable platform with #1 ea 01/14/22 05/09/22 Unknown Rx padded cuff duloxetine 30 mg capsule,delayed 30 mg PO DAILY #30 caps 05/01/22 05/09/22 04/30/22 Rx release (Cymbalta) pt only took one dos ascorbic acid (vitamin C) 500 mg 500 mg PO BEDTIME 05/09/22 05/09/22 05/08/22 History tablet (Vitamin C) cholecalciferol (vitamin D3) 25 25 mcg PO BEDTIME 05/09/22 05/09/22 05/08/22 History mcg (1,000 unit) capsule (Vitamin D3) diphenhydramine HCl 25 mg capsule 25 mg PO BEDTIME 05/09/22 05/09/22 05/08/22 History (Benadryl) ferrous sulfate 325 mg (65 mg 325 mg PO BEDTIME 05/09/22 05/09/22 05/08/22 History iron) tablet (iron) leflunomide 20 mg tablet 20 mg PO DAILY@12 05/09/22 05/09/22 05/08/22 History levothyroxine 175 mcg tablet 175 mcg PO QAM 05/09/22 05/09/22 05/08/22 History lisinopril 5 mg tablet 5 mg PO DAILY@12 05/09/22 05/09/22 05/08/22 History multivitamin 1 tab PO BEDTIME 05/09/22 05/09/22 05/08/22 History omeprazole 20 mg capsule,delayed 20 mg PO DAILY@12 05/09/22 05/09/22 05/08/22 History release tocilizumab 162 mg/0.9 mL 162 mg SUBCUT Q7D 05/09/22 05/09/22 05/02/22 History subcutaneous syringe (Actemra) pt states stopped zinc acetate 50 mg (zinc) capsule 50 mg PO BEDTIME 05/09/22 05/09/22 05/07/22 History Allergies Allergy/AdvReac Type Severity Reaction Status Date / Time Penicillins Allergy Severe ALGY-Anaphy Verified 05/01/22 09:20 laxis amoxicillin Allergy Unknown Verified 05/01/22 09:20 IV RA Meds Allergy ALGY-Anaphy Uncoded 05/01/22 09:20 laxis PFSH Acute PFSH: Medical History Chronic steroid use High risk medication use Hip pain, right Hypertension Hypothyroidism Immunization counseling Leukocytosis Rheumatoid arthritis Rheumatoid arthritis flare Seropositive rheumatoid arthritis of multiple sites Spondylolisthesis at L4-L5 level Surgical History History of foot surgery x5 right History of hand surgery 2right hand, 1 left hand History of hip replacement, total bilateral Status post incision and drainage Status post left knee replacement Family History Other CAD (coronary artery disease) Cancer Hyperlipidemia Hypertension Denies family history of Rheumatoid arthritis Diabetes Lupus Chronic kidney disease (CKD) Lung disease Stroke Social History Smoking and tobacco status: never smoked History of recent travel: No Vitals/I&O/Wt Last Vital Signs Temp 987.3 F H 05/09/22 09:42 Pulse 85 05/09/22 16:19 Resp 16 05/09/22 16:19 BP 106/61 05/09/22 16:19 Pulse Ox 99 05/09/22 16:19 O2 Del Method 05/09/22 15:28 05/09/22 05/09/22 05/09/22 06:59 14:59 22:59 Intake Total 250 / 250 Balance 250 / 250 Weight last 48 hrs Weight 200 lb Physical Exam Narrative: GENERAL: A&O x 3 VASCULAR: DP/PT pulses palpable 2/4 with CFT intact, <3seconds to distal digits, moderate edema to left foot up to the ankle DERMATOLOGICAL: Hyperkeratotic tissue to plantar aspect of left fifth metatarsal head which upon removal revealed underlying pinpoint wound with active purulent drainage. Dorsal fifth metatarsal head region has well healed hyperkeratotic cicatrix. Erythema to left midfoot stemming from fifth metatarsophalangeal joint region. Vesicular, purulent lesions to dorsal aspect of digits 2 through 4 of the right foot at the level of the proximal interphalangeal joints no surrounding erythema Wound #1 Location: Plantar aspect left fifth metatarsal head Size: 0.4 cm circumferentially Undermining: Negative Tracking: Negative Probe to bone: Negative Borders: Hyperkeratotic Base: 100% fibrotic Drainage: Lennox purulence Malodor: Negative MUSCULOSKELETAL: Ankle joint and hindfoot range of motion within normal limits bilaterally. No tenderness with palpation of medial, lateral or anterior ankle bilaterally. No tenderness with palpation of lateral ankle ligaments bilaterally. No pain with palpation of midfoot bilaterally. 5/5 muscle strength in all 4 quadrants of the lower extremity when tested against resistance. No gross musculoskeletal deformities noted. No pain with range of motion of ankle joint or subtalar joint. No pain with fifth metatarsal phalangeal joint or range of motion of fifth metatarsophalangeal joint NEUROLOGICAL: Neurological sensation to the affected foot and ankle is diminished through L4-S1 dermatomes via 10g SWMF, diminished sensation extends proximally to the level of the midfoot IMAGIN views of the left ankle taken in the emergency department today personally turbid by me which show increased off tissue density throughout the level of the midfoot, no subcutaneous emphysema noted. No fractures dislocations noted. CT scan of the left ankle personally interpreted by me which shows increased fluid collection on fifth metatarsophalangeal joint likely indicative of abscess as this correlates clinically Data 05/09/22 10:03 05/09/22 10:03 Micro: Microbiology 05/09/22 10:25 Blood Culture - Preliminary Blood SPECIMEN COLLECTED 05/09/22 10:03 Blood Culture - Preliminary Blood SPECIMEN COLLECTED A&P Assessment and plan (1) Abscess of left foot: (2) Cellulitis: (3) Non-pressure chronic ulcer of other part of left foot with necrosis of muscle: (4) Cellulitis of left foot: Plan -Left foot abscess plantar fifth metatarsal head -Labs and vitals reviewed -WBC 17.8 -ESR 10 -CRP 32 -Cultures pending -Abx IV vancomycin -Diet: N.p.o. at midnight for procedure 05/10/2022 (left foot incision and drainage) -Pain Mgmt: Tylenol 650 mg p.o. every 6 hours -Weight bearing: Heel weightbearing for transfers only to the left foot -Dressings: Changed to be done by podiatry -Continue current Abx therapy until ID and Sensitivity results -Trend labs -Discharge plan: Patient will undergo incision and drainage left foot tomorrow morning, recommendations for discharge will be made after procedure -Podiatry will continue to round on patient daily and provide recommendations Coding Level of Care Code Acute [employer] Manager for g Fwd Diagnoses Abscess of left foot L02.612 Cellulitis L03.90 Non-pressure chronic ulcer of other part of left foot with necrosis of muscle L97.523 Cellulitis of left foot L03.116
[2022-05-09] MEDS: sodium chloride 0.9% 1,000 ML 100 ML IV (16:33)
--- NOTE | 2022-05-09 16:43 | PM.HP ---
Providers/Chief Complaint Admitting Physician: Mendel Jacome MD Primary Care Provider: Kylie Stewart DO Chief Complaint: Leg infection History of Present Illness Kristine Barbosa is a 51 year old female with past medical history of hypertension hypothyroidism rheumatoid arthritis, chronic steroid use, came in today with chief complaint of left feet infection, lately she has noticed increasing redness swelling and tenderness of the left feet,CT ankle LT w con: Is suggestive of abscess of left leg cellulitis. Other vitals and labs have been reviewed. Review of Systems General: Reports: 10 or more systems reviewed and unremarkable except in HPI and below Const: Denies: fever(s), chills, body aches, change in appetite or diaphoresis Card: Denies: palpitations, edema, swelling of feet/ankles, dyspnea on exertion, orthopnea or leg pain with exertion Resp: Denies: dyspnea, productive cough, wheezing or pain on inspiration GI: Denies: abdominal pain, nausea, vomiting, diarrhea or constipation : Denies: flank pain Musc: Reports: extremity pain; Denies: back pain or extremity swelling Neuro: Reports: difficulty walking; Denies: headache(s) or confusion Medications/Allergies Home Medications Medication Instructions Recorded Confirmed Last Taken Type tramadol 50 mg tablet 100 mg PO TID PRN Pain 03/14/20 05/09/22 05/09/22 04:00 History cyclobenzaprine 10 mg tablet 10 mg PO TID PRN muscle spasm #90 01/02/22 05/09/22 01/05/22 08:00 Rx tabs ibuprofen 800 mg tablet 800 mg PO Q4H PRN Pain 01/06/22 05/09/22 01/05/22 18:00 History prednisone 10 mg tablet 10 mg PO DAILY@12 01/06/22 05/09/22 05/08/22 History walker adjustable platform with #1 ea 01/14/22 05/09/22 Unknown Rx padded cuff duloxetine 30 mg capsule,delayed 30 mg PO DAILY #30 caps 05/01/22 05/09/22 04/30/22 Rx release (Cymbalta) pt only took one dos ascorbic acid (vitamin C) 500 mg 500 mg PO BEDTIME 05/09/22 05/09/22 05/08/22 History tablet (Vitamin C) cholecalciferol (vitamin D3) 25 25 mcg PO BEDTIME 05/09/22 05/09/22 05/08/22 History mcg (1,000 unit) capsule (Vitamin D3) diphenhydramine HCl 25 mg capsule 25 mg PO BEDTIME 05/09/22 05/09/22 05/08/22 History (Benadryl) ferrous sulfate 325 mg (65 mg 325 mg PO BEDTIME 05/09/22 05/09/22 05/08/22 History iron) tablet (iron) leflunomide 20 mg tablet 20 mg PO DAILY@12 05/09/22 05/09/22 05/08/22 History levothyroxine 175 mcg tablet 175 mcg PO QAM 05/09/22 05/09/22 05/08/22 History lisinopril 5 mg tablet 5 mg PO DAILY@12 05/09/22 05/09/22 05/08/22 History multivitamin 1 tab PO BEDTIME 05/09/22 05/09/22 05/08/22 History omeprazole 20 mg capsule,delayed 20 mg PO DAILY@12 05/09/22 05/09/22 05/08/22 History release tocilizumab 162 mg/0.9 mL 162 mg SUBCUT Q7D 05/09/22 05/09/22 05/02/22 History subcutaneous syringe (Actemra) pt states stopped zinc acetate 50 mg (zinc) capsule 50 mg PO BEDTIME 05/09/22 05/09/22 05/07/22 History Allergies Allergy/AdvReac Type Severity Reaction Status Date / Time Penicillins Allergy Severe ALGY-Anaphy Verified 05/01/22 09:20 laxis amoxicillin Allergy Unknown Verified 05/01/22 09:20 IV RA Meds Allergy ALGY-Anaphy Uncoded 05/01/22 09:20 laxis PFSH Acute PFSH: Medical History Chronic steroid use High risk medication use Hip pain, right Hypertension Hypothyroidism Immunization counseling Leukocytosis Rheumatoid arthritis Rheumatoid arthritis flare Seropositive rheumatoid arthritis of multiple sites Spondylolisthesis at L4-L5 level Surgical History History of foot surgery x5 right History of hand surgery 2right hand, 1 left hand History of hip replacement, total bilateral Status post incision and drainage Status post left knee replacement Family History Other CAD (coronary artery disease) Cancer Hyperlipidemia Hypertension Denies family history of Rheumatoid arthritis Diabetes Lupus Chronic kidney disease (CKD) Lung disease Stroke Social History Smoking and tobacco status: never smoked History of recent travel: No Vitals/I&O/Wt Last Vital Signs Temp 987.3 F H 05/09/22 09:42 Pulse 85 05/09/22 16:19 Resp 17 05/09/22 16:32 BP 106/61 05/09/22 16:19 Pulse Ox 99 05/09/22 16:19 O2 Del Method 05/09/22 15:28 05/09/22 05/09/22 05/09/22 06:59 14:59 22:59 Intake Total 250 / 250 Balance 250 / 250 Weight last 48 hrs Weight 90.718 kg Physical Exam Const: COMMON NORMALS: patient oriented x3 Resp: COMMON NORMALS: normal respiratory effort, No retractions, No use of accessory muscles and clear to auscultation bilaterally EFFORT & INSPECTION: Yes symmetric chest movement AUSCULTATION: clear to auscultation bilaterally Cardio: COMMON NORMALS: regular rate, regular rhythm, S1 normal heart sound present, S2 normal heart sound present, No gallops present (Cardio), No murmurs present (Cardio), No rub (Cardio) and Peripheral pulses 2+ throughout RATE: regular rate RHYTHM: regular rhythm HEART SOUNDS: S1 normal heart sound present and S2 normal heart sound present PERIPHERAL PULSES: Peripheral pulses 2+ throughout GI: COMMON NORMALS: Normal to inspection, nondistended, normoactive bowel sounds present, Soft to palpation, non-tender, No hepatosplenomegaly present and no masses AUSCULTATION: Yes normoactive bowel sounds PALPATION: Yes Soft to palpation and Yes No hepatosplenomegaly present RECTAL EXAM: deferred Extremity: COMMON NORMALS: no clubbing, cyanosis or edema and no pedal edema NARRATIVE EXTREMITY EXAM: Left lower extremity dressing in place, dry and clean Data 05/09/22 10:03 05/09/22 10:03 Micro: Microbiology 05/09/22 10:25 Blood Culture - Preliminary Blood SPECIMEN COLLECTED 05/09/22 10:03 Blood Culture - Preliminary Blood SPECIMEN COLLECTED A&P Assessment and plan (1) Cellulitis of left foot: (2) Non-pressure chronic ulcer of other part of left foot with necrosis of muscle: (3) Cellulitis: (4) Abscess of left foot: (5) Hypothyroidism: Qualifiers: Hypothyroidism type: acquired Qualified Code(s): E03.9 - Hypothyroidism, unspecified (6) Hypertension: Qualifiers: Hypertension type: primary hypertension Qualified Code(s): I10 - Essential (primary) hypertension Plan 51 year old female with past medical history of hypertension hypothyroidism rheumatoid arthritis, chronic steroid use, came in today with chief complaint of left feet infection, lately she has noticed increasing redness swelling and tenderness of the left feet,CT ankle LT w con: Is suggestive of abscess of left leg cellulitis. Assessment: Abscess of left feet Cellulitis Hypothyroidism Hypertension History of RA History of chronic steroid History of MRSA infection in the past was discharged on 6 weeks IV Plan: Continue broad-spectrum antibiotics follow Podiatry on board a.m. incision and drainage N.p.o. after midnight Continue levothyroxine Continue lisinopril Continue other home medications CODE STATUS; full code DVT prophylaxis on SCDs Attestations Medical Necessity Statement*: Patient is to in hospital for management of left foot abscess. Need for IV antibiotic, need for incision and drainage. Time Spent in Patient Care: Greater than 35 minutes (>than 50% of time spent in counselling and/or direct pt care on unit). 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
[2022-05-09] MEDS: TRAMadol 50 mg Tablet 100 MG PO (19:41)
[2022-05-09] MEDS: ascorbic acid 500 mg Tablet PO (19:48)
[2022-05-09] MEDS: ferrous sulfate EC 325 mg Tablet PO (19:48)
[2022-05-09] MEDS: zinc gluconate 50 mg Tablet PO (19:48)
[2022-05-09] MEDS: cholecalciferol (vitamin D3) 1,000 unit Tablet 1000 UNIT PO (19:48)
[2022-05-09] MEDS: diphenhydrAMINE 25 mg Capsule PO (19:48)
[2022-05-09] MEDS: multivitamin therapeutic Tablet 1 TAB PO (19:48)
[2022-05-09] MEDS: ondansetron 2 mg/ML SDV 2 mL 4 MG IVP (20:52)
--- NOTE | 2022-05-09 22:23 | XRR_ITS ---
PROCEDURE INFORMATION: Exam: XR Right Hip Exam date and time: 05/10/2022 12:03 AM Age: 51 years old Clinical indication: Right hip; Prior surgery; Surgery type: [facility]; Patient HX: C/O severe RT hip pain. No injury. History of RT lower ext abscess. TECHNIQUE: Imaging protocol: Radiologic exam of the Right hip. Views: 1 view hip with pelvis when performed. COMPARISON: CR XR pelvis 1-2V* [id number] 05/09/2022 2:29 PM FINDINGS: Bones/joints: Right hip arthroplasty. No acute fracture or dislocation. Soft tissues: Unremarkable. XR/XR hip RT 2-3V wo/w pel* [id number] IMPRESSION: No acute finding.
[2022-05-09] MEDS: vancomycin 1,250 MG/250 ML PIGGYBACK 250 MG IV (23:21)
--- NOTE | 2022-05-09 23:32 | PC.NURSE ---
Addendum entered by Carina Chan RN 05/09/22 23:44: Called Radiology for estimated time for XR of hip to be done. Will continue to monitor patient. Original Note: 2219 Patient called out crying uncontrollably stating she has increased right hip pain, pain medications that are ordered have been given. Notified physician and orders received for hip XR to be completed. Radiology notified. No further orders at this time. Will continue to monitor.
[2022-05-10] VITALS (21 sets, daily range): BP systolic 93–170; BP diastolic 55–89; PULSE 80–102; RESP 12–22; TEMP 36.8–37.9; O2SAT 90–98
[2022-05-10] MEDS: HYDROmorphone 1 mg/mL INJ 1 mL 0.5 MG IVP ×5 (00:21→17:16)
[2022-05-10] MEDS: ketorolac 30 mg/mL INJ 15 MG IVP (02:03)
[2022-05-10] MEDS: sodium chloride 0.9% 1,000 ML 100 ML IV ×3 (02:06→23:37)
[2022-05-10] MEDS: TRAMadol 50 mg Tablet 100 MG PO (03:38)
[2022-05-10 04:01] LABS: Basophils # 0.2 10^3/uL (0.0-0.1); Basophils % 0.8 %; Eosinophils # 0.3 10^3/uL (0.0-0.8); Eosinophils % 1.5 %; Hematocrit 43.1 % (37.0-47.0); Hemoglobin 13.7 g/dL (11.5-15.3); Lymphocytes # 0.9 10^3/uL (0.8-4.8); Lymphocytes % 4.5 %; Mean Corpuscular HGB Conc 31.8 g/dL (30.0-36.0); Mean Corpuscular Hemoglobin 28.4 pg (28.0-34.0); Mean Corpuscular Volume 89.4 fl (81-99); Mean Platelet Volume 11.1 fL (7.4-10.4); Monocytes # 0.7 10^3/uL (0.2-0.9); Monocytes % 3.4 %; Neutrophils # 17.29 10^3/uL (1.8-7.7); Neutrophils % 88.9 %; Nucleated Red Blood Cells % 0 %; Platelet Count 329 10^3/cmm (130-400); Red Blood Count 4.82 10^6/uL (4.1-5.3); Red Cell Distribution Width 15.9 % (12.1-15.1); White Blood Count 19.5 10^3/uL (4.0-10.0)
[2022-05-10 04:20] LABS: Blood Urea Nitrogen 7 mg/dL (6-20); C Reactive Protein 42.3 mg/L (0.0-4.9); Carbon Dioxide 19 mmol/L (22-29); Chloride 106 mmol/L (98-107); Glomerular Filtration Rate 129.1 mL/min (90-130); Glucose 141 mg/dL (65-115); Osmolality Calculated 282 mOsm/kg (285-295); Sodium 136 mmol/L (136-145)
[2022-05-10 04:24] LABS: Anion Gap 14.7 (5-19); Potassium 3.7 mmol/L (3.5-5.1)
[2022-05-10] MEDS: acetaminophen 325 mg Tablet 650 MG PO (04:31)
[2022-05-10 04:38] LABS: Erythrocyte Sedimentation Rate 11 mm/hr (0-15)
[2022-05-10] MEDS: levothyroxine 175 mcg Tablet PO (05:43)
--- NOTE | 2022-05-10 08:44 | P.ANESASSM_ITS ---
Pre-Anesthetic Assessment Height/Weight: Height 1.6 m Weight 90.718 kg Temp Pulse Resp BP Pulse Ox O2 Del Method 98.8 F 85 18 110/71 97 05/10/22 04:00 05/10/22 04:00 05/10/22 07:20 05/10/22 04:00 05/10/22 07:20 05/09/22 16:23 Preop Diagnosis: left knee, rheumatoid arthritis/Avascular necrosis Operation Date: 05/10/22 08:10 Proposed Procedures p Left Foot Incision And Drainage(Left) - Zach Cole DPM Familial anesthetic complications: none Was Beta Brandon taken within 24 hours: N/A Was Clonidine taken within 24 hours: N/A Social No alcohol and No tobacco Exam alert, oriented x 3 and clear to auscultation bilaterally tachy Airway Submandibular: within normal limits Cervical ROM: within normal limits Mallampati: Class II Dentition: false (upper) GI Gastroesophageal Reflux Disease Metabolic Morbid Obesity and Thyroid Disease chronic steroid Musc/skel Rheumatoid Arthritis Neuropsych Anxiety and Depression Anesthetic Plan ASA status: 3 Anesthesia: Choice Medications/Allergies Home Medications Medication Instructions Recorded Confirmed Last Taken Type tramadol 50 mg tablet 100 mg PO TID PRN Pain 03/14/20 05/09/22 05/09/22 04:00 H istory cyclobenzaprine 10 mg tablet 10 mg PO TID PRN muscle spasm #90 01/02/22 05/09/22 01/05/22 08:00 Rx tabs ibuprofen 800 mg tablet 800 mg PO Q4H PRN Pain 01/06/22 05/09/22 01/05/22 18:00 History prednisone 10 mg tablet 10 mg PO DAILY@12 01/06/22 05/09/22 05/08/22 History walker adjustable platform with #1 ea 01/14/22 05/09/22 Unknown Rx padded cuff duloxetine 30 mg capsule,delayed 30 mg PO DAILY #30 caps 05/01/22 05/09/22 04/30/22 Rx release (Cymbalta) pt only took one dos ascorbic acid (vitamin C) 500 mg 500 mg PO BEDTIME 05/09/22 05/09/22 05/08/22 History tablet (Vitamin C) cholecalciferol (vitamin D3) 25 25 mcg PO BEDTIME 05/09/22 05/09/22 05/08/22 History mcg (1,000 unit) capsule (Vitamin D3) diphenhydramine HCl 25 mg capsule 25 mg PO BEDTIME 05/09/22 05/09/22 05/08/22 History (Benadryl) ferrous sulfate 325 mg (65 mg 325 mg PO BEDTIME 05/09/22 05/09/22 05/08/22 History iron) tablet (iron) leflunomide 20 mg tablet 20 mg PO DAILY@12 05/09/22 05/09/22 05/08/22 History levothyroxine 175 mcg tablet 175 mcg PO QAM 05/09/22 05/09/22 05/08/22 History lisinopril 5 mg tablet 5 mg PO DAILY@12 05/09/22 05/09/22 05/08/22 History multivitamin 1 tab PO BEDTIME 05/09/22 05/09/22 05/08/22 History omeprazole 20 mg capsule,delayed 20 mg PO DAILY@12 05/09/22 05/09/22 05/08/22 History release tocilizumab 162 mg/0.9 mL 162 mg SUBCUT Q7D 05/09/22 05/09/22 05/02/22 History subcutaneous syringe (Actemra) pt states stopped zinc acetate 50 mg (zinc) capsule 50 mg PO BEDTIME 05/09/22 05/09/22 05/07/22 History Allergies Allergy/AdvReac Type Severity Reaction Status Date / Time Penicillins Allergy Severe ALGY-Anaphy Verified 05/01/22 09:20 laxis amoxicillin Allergy Unknown Verified 05/01/22 09:20 IV RA Meds Allergy ALGY-Anaphy Uncoded 05/01/22 09:20 laxis Current Medications Generic Name Dose Route Start Last Admin Trade Name Freq PRN Reason Stop Dose Admin Acetaminophen 650 mg 05/09/22 16:24 05/10/22 04:31 Acetaminophen 325 Mg Tablet PO 650 mg Q6H PRN Administration Mild/Mod Pain Or Temp >/= 101 Ascorbic Acid 500 mg 05/09/22 21:00 05/09/22 19:48 Ascorbic Acid 500 Mg Tablet PO 500 mg BEDTIME MICHELLE Administration Diphenhydramine HCl 25 mg 05/09/22 21:00 05/09/22 19:48 Diphenhydramine 25 Mg Capsule PO 25 mg BEDTIME MICHELLE Administration Ferrous Sulfate 325 mg 05/09/22 21:00 05/09/22 19:48 Ferrous Sulfate Ec 325 Mg Tablet PO 325 mg BEDTIME MICHELLE Administration Hydromorphone HCl 0.5 mg 05/10/22 03:30 05/10/22 06:06 Hydromorphone 1 Mg/Ml Inj 1 Ml IVP 0.5 mg Q6H PRN Administration PAIN Hydromorphone HCl 0.5 mg 05/10/22 07:16 05/10/22 07:20 Hydromorphone 1 Mg/Ml Inj 1 Ml IVP 0.5 mg ONCE PRN Administration For preop pain/anxiety Sodium Chloride 1,000 mls @ 100 mls/hr 05/09/22 16:23 05/10/22 02:06 Sodium Chloride 0.9% IV 100 mls/hr .Q10H MICHELLE Administration Imipenem/Cilastatin Sodium 500 100 mls @ 200 mls/hr 05/09/22 16:45 05/10/22 04:09 mg/ Sodium Chloride IV Infused Q6H MICHELLE Infusion Protocol Vancomycin/PEG/NADA/Lysine/Water 1,250 mg in 250 mls @ 250 mls/hr 05/10/22 00:00 05/10/22 00:21 Vancocin IV Infused Q12H MICHELLE Infusion Levothyroxine Sodium 175 mcg 05/10/22 06:00 05/10/22 05:43 Levothyroxine 175 Mcg Tablet PO 175 mcg QAM MICHELLE Administration Multivitamins Therapeutic 1 tab 05/09/22 21:00 05/09/22 19:48 Multivitamin Therapeutic Tablet PO 1 tab BEDTIME MICHELLE Administration Ondansetron HCl 4 mg 05/09/22 16:23 05/09/22 20:52 Ondansetron 2 Mg/Ml Sdv 2 Ml IVP 4 mg Q6H PRN Administration NAUSEA AND VOMITING Tramadol HCl 100 mg 05/09/22 16:40 05/10/22 03:38 Tramadol 50 Mg Tablet PO 100 mg TID PRN Administration Pain Vitamin D 1,000 unit 05/09/22 21:00 05/09/22 19:48 Cholecalciferol (Vitamin D3) 1,000 Unit Tablet PO 1,000 unit BEDTIME MICHELLE Administration Zinc Gluconate 50 mg 05/09/22 21:00 05/09/22 19:48 Zinc Gluconate 50 Mg Tablet PO 50 mg BEDTIME MICHELLE Administration PFSH Anesthesia Medical History Chronic steroid use High risk medication use Hip pain, right Hypertension Hypothyroidism Immunization counseling Leukocytosis Rheumatoid arthritis Rheumatoid arthritis flare Seropositive rheumatoid arthritis of multiple sites Spondylolisthesis at L4-L5 level Surgical History History of foot surgery x5 right History of hand surgery 2right hand, 1 left hand History of hip replacement, total bilateral Status post incision and drainage Status post left knee replacement Family History Other CAD (coronary artery disease) Cancer Hyperlipidemia Hypertension Denies family history of Rheumatoid arthritis Diabetes Lupus Chronic kidney disease (CKD) Lung disease Stroke Social History Smoking and tobacco status: never smoked History of recent travel: No Data Anesthesia 05/10/22 03:36 05/10/22 03:36 Short CBC 05/09/22 05/10/22 Range/Units 10:03 03:36 WBC 17.8 H 19.5 H (4.0-10.0) 10^3/uL Hgb 15.0 13.7 (11.5-15.3) g/dL Hct 45.7 43.1 (37.0-47.0) % MCV 88.9 89.4 (81-99) fl Plt Count 336 329 (130-400) 10^3/cmm Neut % (Auto) 75.2 88.9 % Neut # (Auto) 13.35 H 17.29 H (1.8-7.7) 10^3/uL BMP 05/09/22 05/10/22 10:03 03:36 Sodium 138 136 Potassium 3.6 3.7 Chloride 104 106 Carbon Dioxide 22 19 L BUN 9 7 Creatinine 0.6 0.5 Glucose 102 141 H Calcium 9.9 9.0 Liver Function 05/09/22 Range/Units 10:03 Total Bilirubin 0.2 (0.15-1.2) mg/dL AST 19 (0-32) U/L ALT 18 (0-33) U/L Alkaline Phosphatase 171 H (35-105) U/L Albumin 3.2 L (3.5-5.2) g/dL Coags 05/09/22 05/09/22 05/10/22 10:03 10:03 03:36 ESR 10 11 C-Reactive Protein 32.0 H 05/10/22 03:36 ESR C-Reactive Protein 42.3 H Microbiology 05/09/22 10:03 Blood Culture - Preliminary Blood 05/09/22 16:05 Gram Stain - Final Toe - Wound 05/09/22 10:25 Blood Culture - Preliminary Blood SPECIMEN COLLECTED Cardiac Studies: Echocardiogram 01/06/22
[2022-05-10] MEDS: sodium chloride 0.9% 1,000 ML 30 ML IV (09:20)
--- NOTE | 2022-05-10 09:54 | W.PM.OPSUD ---
Surgery/Procedure H&P Update DATE OF PROCEDURE: May 10, 2022 DATE H&P PERFORMED: 05/09/22 CHANGES TO PREVIOUS DOCUMENTATION: no changes PREOP DIAGNOSIS: left knee, rheumatoid arthritis/Avascular necrosis PLANNED PROCEDURE: Operation Date: 05/10/22 08:10 Proposed Procedures p Left Foot Incision And Drainage(Left) - Zach Cole DPM
[2022-05-10 10:26] LABS: Bacillus cereus group Not Detected (NOT DETECT); Bacillus subtillis group Not Detected (NOT DETECT); Corynebacterium Not Detected (NOT DETECT); Cutibacterium acnes (P.acnes) Not Detected (NOT DETECT); Enterococcus Not Detected (NOT DETECT); Enterococcus faecalis Not Detected (NOT DETECT); Enterococcus faecium Not Detected (NOT DETECT); Lactobacillus species Not Detected (NOT DETECT); Listeria Not Detected (NOT DETECT); Listeria monocytogenes Not Detected (NOT DETECT); Micrococcus Not Detected (NOT DETECT); Pan Candida Not Detected (NOT DETECT); Pan Gram-Negative Not Detected (NOT DETECT); Staphylococcus epidermidis Not Detected (NOT DETECT); Staphylococcus lugdunensis Not Detected (NOT DETECT); Staphylococcus species Detected (NOT DETECT); Streptococcus agalactiae Not Detected (NOT DETECT); Streptococcus anginosus group Not Detected (NOT DETECT); Streptococcus pneumoniae Not Detected (NOT DETECT); Streptococcus pyogenes Not Detected (NOT DETECT); Streptococcus species Not Detected (NOT DETECT); mecA Not Detected (NOT DETECT); mecC Not Detected (NOT DETECT)
--- NOTE | 2022-05-10 10:28 | SUR.OPER ---
1028 LEFT AC IV INFILTRATED. ASPIRATED 10ML WITH STERILE SYRINGE FROM IV CATH. 18IV REMOVED W/ 4X4 AND TAPE OVER IV SITE. LEFT INDEX RING REMOVED DUE TO FINGER SWELLING. LEFT ARM ELEVATED ABOVE HEART WITH TWO PILLOWS AND WARM COMPRESS OVER LEFT FOREARM.
--- NOTE | 2022-05-10 11:22 | SUR.OPER ---
1028 late entry 18iv catheter intact when removed. measure circumference of left arm and measure 12in. measured circumference of right arm 10.5 in. K. Vinod PRODUCTION LINE TECHNICIAN add bedside to verify circumference.
--- NOTE | 2022-05-10 11:25 | SUR.PHASEI ---
05/10/22 1125 left index ring given to Smita (family) at bedside by Segundo Granger.
--- NOTE | 2022-05-10 11:27 | P.OP_ITS ---
Operative Report Date of procedure: May 10, 2022 Pre-op diagnosis: Preop Diagnosis left foot abscess Post-op diagnosis: Same Post-op findings: No appreciable deep space abscess of the foot, hindfoot or lateral leg that would contribute to patient's sepsis and bacteremia. Small amount of purulence plantar aspect fifth metatarsal head at location of wound. Tissues along lateral course of fifth metatarsal appeared healthy and stable in appearance with no signs of infection or abscess. Plantar lateral left heel had area of hemorrhagic blister which showed no underlying abscess or necrotic tissue. Left lateral leg at the level of the superior peroneal retinaculum showed ecchymoses with no underlying appreciable abscess or fluid collection that would indicate local infection. Procedure done: Left foot incision and drainage of left foot and ankle CPT 39306 Surgeon: Dr. Zach Cole, D.P.M. Estimated blood loss: Less than 10 cc No tourniquet Complications: None Findings: See above Brief History: Patient is a 51-year-old female who presented to the emergency department yesterday 05/09/2022 with complaint of left leg pain and swelling, left knee pain and right hip pain. CT scan was performed in the emergency department which showed fluid collection around the fifth metatarsal phalangeal joint of the left foot consistent with likely abscess. Podiatry was consulted. In the emergency department setting, foot was evaluated and there was a small amount of purulence that came from the ulceration on the plantar aspect of the left fifth metatarsal head. Given these findings, the patient was booked for incision and drainage this morning 05/10/2022 to washout abscess. Patient has been in the hospital overnight has been receiving IV antibiotics. Despite this, the patient's condition appears to be declining as she has increased pain today and overall general malaise. She presents to the operating room for incision and drainage and washout of left foot Procedure: The patient has been NPO since midnight. The history has been reviewed and the history and physical is current. The signed consent was confirmed and placed in the patient chart. Patient imaging has been reviewed and is consistent with thediagnosis. Under mild sedation, the patient was brought into the operating room and left on the gurney in the supine position. IV antibiotics were given by the anesthesia team as preoperative surgical prophylaxis. General sedation was then performed by the anesthesia team. The left lower extremity was then prepped and draped in the usual fashion. After prep, the following procedure was then performed. Attention was directed to the left lower extremity. The entire left foot and ankle were noted to be swollen and erythematous with erythema extending up to the level of the mid tibia. To assess for infection of the left ankle joint an 18-gauge needle was inserted to the anteromedial portion of the ankle just medial to the tibialis anterior into the ankle joint. The syringe was aspirated and there was no fluid accumulation within the ankle joint that would indicate septic ankle. Attention was then directed to the lateral aspect of the left leg at the level of the superior peroneal retinaculum where there was noted to be increased edema, ecchymoses that indicated possible underlying abscess. An 18- gauge needle was inserted at this level and aspirated to assess for any fluid collection of which there was none. Attention was then directed to the full- thickness ulceration measuring 0.3 cm circumferentially on the plantar aspect of the left foot at the fifth metatarsal phalangeal joint. A Webster elevator was inserted into the wound and it was noted to track in the 3 o'clock position towards the lateral aspect of the fifth metatarsal head 2 cm. There was a small amount of purulence in this area approximately 3 cc. A #15 blade was used to make a 3.5 cm incision over the lateral aspect of the fifth metatarsal head. Dissection was carried down through subcutaneous and superficial fascia. The tissues were noted to be healthy in appearance with no evidence of necrosis or a bscess. No discoloration of the tissues were noted. Dissection was carried down to the level of the ulceration on the plantar aspect of the fifth metatarsal head. Again, tissues were noted to be healthy. The tissues were expressed manually and no purulence or drainage was noted. Cultures both aerobic and anaerobic were taken of the plantar wound and surrounding tissue and sent to micro for ID and sensitivity as left foot culture. Attention was then directed to the plantar aspect of the left heel laterally where there was noted to be what appeared to be the remnants of a hemorrhagic blister with no underlying fluctuance. A #15 blade was used to make a 2.5 cm incision along the lateral aspect of this area. A hemostat was used to bluntly dissect through the subcutaneous superficial fascia. The tissue in this area also appeared to be healthy and without necrosis or fibrosis. No appreciable abscess or fluid collection was noted in this area. The blister was deroofed which revealed discolored dermis and epidermis consistent with ecchymoses but no abscess. The site was expressed and there was no fluid expressed from the incision site. Cultures both aerobic and anaerobic were taken at this site and sent to micro for ID and sensitivity as left heel culture Attention was then directed to the lateral aspect of the left ankle at the level of the superior peroneal retinaculum where there was an increased amount of edema and ecchymoses. Although there was no aspirate using an 18-gauge needle the #15 blade was used to make a 2 cm incision over this area to evaluate for any underlying abscess. A hemostat was used to bluntly dissect through subcutaneous and superficial fascia. There was noted to be a small amount of serous fluid at this level, cultures both aerobic and anaerobic were taken and sent to micro for ID and sensitivity as left lateral leg culture. The surrounding tissues again, appeared healthy and viable with no appreciable abscess, necrosis or fibrosis. The site was expressed for any remaining fluid of which there was none. Attention was then directed to irrigation of the incision sites. All incision sites were irrigated with copious amounts of sterile saline via cystoscopy tubing. All incisions were then closed with 3-0 Prolene in simple interrupted fashion. The incision sites were anesthetized with 0.5% Marcaine plain. Incision sites were dressed with Adaptic 4 x 4 gauze Kerlix and Rehan bandage. The patient tolerated the procedure and anesthesia well and without complication. The patient was transported from the operating room to the recovery room with vital signs stable and vascular status intact to all digits of the left foot. The patient was instructed to remain weightbearing as tolerated to the operative extremity, to keep surgical dressing clean, dry and intact. The patient will be transferred back to the floor once anesthesia criteria is met. I will continue to round on and follow the patient in the inpatient setting and provide recommendations to stabilize the patient for discharge.
--- NOTE | 2022-05-10 11:58 | SUR.PHASEI ---
1150 pt taken to room 279 bed 2. Nurse in room to recieve patient. Dressing dry and intact. VSS. Pt awake, alert, and oriented. family at bedside.
--- NOTE | 2022-05-10 14:11 | CTR_ITS ---
PROCEDURE INFORMATION: Exam: CT Left Lower Extremity With Contrast, Knee Exam date and time: 05/10/2022 7:39 PM Age: 51 years old Clinical indication: Swelling, leg or foot; Prior surgery; Additional info: Septic left knee TECHNIQUE: Imaging protocol: CT of the Left lower extremity with intravenous contrast was performed. Exam focused on the knee. Radiation optimization: All CT scans at this facility use at least one of these dose optimization techniques: automated exposure control; mA and/or kV adjustment per patient size (includes targeted exams where dose is matched to clinical indication); or iterative reconstruction. Contrast material: OMNIPAQUE 350; Contrast volume: 75 ml; Contrast route: INTRAVENOUS (IV); COMPARISON: CR XR knee LT 3V* [id number] 05/09/2022 11:22 AM RADIATION DOSE METRICS: Total DLP (mGy-cm): 278.26 FINDINGS: Bones/joints: Knee arthroplasty is noted. At the lateral joint line, there is another large fluid collection which wraps around the anterior knee, and this entire area measures about 8 x 4 x 7 cm. This extends anteriorly and medially, see series 4, image 76. No acute fracture, dislocation, or focal bone destruction is noted. Soft tissues: The distal lateral femur deep soft tissue, as on series 4, image 8 shows a rim enhancing fluid collection that measures up to 34 x 16 mm. This tracks inferiorly and in the coronal plane measures up to 6 cm. Diffuse left knee subcutaneous edema. Possible minute Castro's cyst. CT/CT knee LT w con [id number] IMPRESSION: 1. Multiple fluid collections about the knee, which do raise strong concern for multifocal abscesses and may imply a septic joint. Advise orthopedic consultation. 2. Diffuse osteopenia with arthroplasty. No acute fracture or focal bone destruction identified. 3. Diffuse subcutaneous edema. 4. Skin lesion at the posterolateral knee, as on series 4, image 57. Advise correlation with direct visual exam. This may be due to scar, skin lesion, or area of postop change.
--- NOTE | 2022-05-10 14:11 | CTR_ITS ---
PROCEDURE INFORMATION: Exam: CT Right Lower Extremity Without and With Contrast, Hip Exam date and time: 05/10/2022 7:32 PM Age: 51 years old Clinical indication: Swelling, leg or foot; Prior surgery; Additional info: Septic right hip TECHNIQUE: Imaging protocol: CT of the Right lower extremity without and with intravenous contrast was performed. Exam focused on the hip. Radiation optimization: All CT scans at this facility use at least one of these dose optimization techniques: automated exposure control; mA and/or kV adjustment per patient size (includes targeted exams where dose is matched to clinical indication); or iterative reconstruction. Contrast material: OMNIPAQUE 350; Contrast volume: 75 ml; Contrast route: INTRAVENOUS (IV); COMPARISON: MR hip RT wo con* [id number] 01/06/2022 12:07 PM RADIATION DOSE METRICS: Total DLP (mGy-cm): 941.53 FINDINGS: Bones/joints: Topogram shows bilateral hip arthroplasties. Adjacent to the right hip, contiguous with bone, there is a very large fluid collection, which measures up to about 12 x 9 cm. Severe right lateral hip subcutaneous edema. In the coronal plane, the fluid collection is normal and very elongated, and is partially imaged. It measures up to at least 22 cm. This extends down along the right femur as well. Soft tissues: See Bones/joints finding. Urinary bladder: A Frey catheter is present in a collapsed bladder. CT/CT hip RT wo/w con [id number] IMPRESSION: 1. Extremely large right lateral hip fluid collection as described, which may be due to postop hematoma, seroma, or abscess. This is deep to the subcutaneous tissue and appears involve the muscular layers/fascia. 2. Right hip arthroplasty. Negative for acute fracture. Full details above.
--- NOTE | 2022-05-10 14:13 | P.CONIM_ITS ---
Providers/Reason For Consult Consulting Physician/Specialty*: Orthopedics Reason for Consult*: Right hip pain left knee pain Attending Physician: Mendel Jacome MD Primary Care Provider: Kylie Stewart DO History of Present Illness History of Present Illness Kristine Barbosa is a 51 year old female with a long history of rheumatoid arthritis with chronic steroid use from 2004 with history of right total hip replacement by Dr. Venegas as well as left total knee replacement by Dr. Horan 05/20/2020. She reports in November 2021 having right hip drain from an infection where she was treated with a PICC line for antibiotics. She has had pain in her right hip and knee for some time. She was treated by Dr. Horan with a left knee aspiration 2 months ago which cultures were negative for septic knee. She states that her pain has been fluctuating and progressively has getting worse in the right hip /left knee approximately a week ago. Thursday05/09/22 she had sergio pus out of the back of her Left calf and knee. With the pain continuing in her left knee and left foot, right hip. She underwent a recent irrigation debridement of the left foot by Dr. Cole that was performed on 05/10/2022. She denies any falls she states it is been difficult for her to ambulate due to the amount of pain she has in her hip and knee. She states that she has felt febrile for a number of weeks that comes and goes. Patient states upon returning from surgery she has drank a 48 ounce Mohit's cup of Sprite. An extensive review of the patient's past medical history, surgical history, allergies, medications, family history, social history, and review of systems was completed Review of Systems General: Reports: 10 or more systems reviewed and unremarkable except in HPI and below Const: Denies: fever(s), chills, body aches, change in appetite or diaphoresis Card: Denies: palpitations, edema, swelling of feet/ankles, dyspnea on exertion, orthopnea or leg pain with exertion Resp: Denies: dyspnea, productive cough, wheezing or pain on inspiration GI: Denies: abdominal pain, nausea, vomiting, diarrhea or constipation : Denies: flank pain Musc: Reports: extremity pain; Denies: back pain or extremity swelling Neuro: Reports: difficulty walking; Denies: headache(s) or confusion Medications/Allergies Home Medications Medication Instructions Recorded Confirmed Last Taken Type tramadol 50 mg tablet 100 mg PO TID PRN Pain 03/14/20 05/09/22 05/09/22 04:00 History cyclobenzaprine 10 mg tablet 10 mg PO TID PRN muscle spasm #90 01/02/22 05/09/22 01/05/22 08:00 Rx tabs ibuprofen 800 mg tablet 800 mg PO Q4H PRN Pain 01/06/22 05/09/22 01/05/22 18:00 History prednisone 10 mg tablet 10 mg PO DAILY@12 01/06/22 05/09/22 05/08/22 History walker adjustable platform with #1 ea 01/14/22 05/09/22 Unknown Rx padded cuff duloxetine 30 mg capsule,delayed 30 mg PO DAILY #30 caps 05/01/22 05/09/22 04/30/22 Rx release (Cymbalta) pt only took one dos ascorbic acid (vitamin C) 500 mg 500 mg PO BEDTIME 05/09/22 05/09/22 05/08/22 History tablet (Vitamin C) cholecalciferol (vitamin D3) 25 25 mcg PO BEDTIME 05/09/22 05/09/22 05/08/22 History mcg (1,000 unit) capsule (Vitamin D3) diphenhydramine HCl 25 mg capsule 25 mg PO BEDTIME 05/09/22 05/09/22 05/08/22 History (Benadryl) ferrous sulfate 325 mg (65 mg 325 mg PO BEDTIME 05/09/22 05/09/22 05/08/22 History iron) tablet (iron) leflunomide 20 mg tablet 20 mg PO DAILY@05/09/22 05/09/22 05/08/22 History levothyroxine 175 mcg tablet 175 mcg PO QAM 05/09/22 05/09/22 05/08/22 History lisinopril 5 mg tablet 5 mg PO DAILY@12 05/09/22 05/09/22 05/08/22 History multivitamin 1 tab PO BEDTIME 05/09/22 05/09/22 05/08/22 History omeprazole 20 mg capsule,delayed 20 mg PO DAILY@12 05/09/22 05/09/22 05/08/22 History release tocilizumab 162 mg/0.9 mL 162 mg SUBCUT Q7D 05/09/22 05/09/22 05/02/22 History subcutaneous syringe (Actemra) pt states stopped zinc acetate 50 mg (zinc) capsule 50 mg PO BEDTIME 05/09/22 05/09/22 05/07/22 History Allergies Allergy/AdvReac Type Severity Reaction Status Date / Time Penicillins Allergy Severe ALGY-Anaphy Verified 05/01/22 09:20 laxis amoxicillin Allergy Unknown Verified 05/01/22 09:20 IV RA Meds Allergy ALGY-Anaphy Uncoded 05/01/22 09:20 laxis Current Medications Generic Name Dose Route Start Last Admin Trade Name Freq PRN Reason Stop Dose Admin Acetaminophen 650 mg 05/09/22 16:24 05/10/22 04:31 Acetaminophen 325 Mg Tablet PO 650 mg Q6H PRN Administration Mild/Mod Pain Or Temp >/= 101 Ascorbic Acid 500 mg 05/09/22 21:00 05/09/22 19:48 Ascorbic Acid 500 Mg Tablet PO 500 mg BEDTIME MICHELLE Administration Diphenhydramine HCl 25 mg 05/09/22 21:00 05/09/22 19:48 Diphenhydramine 25 Mg Capsule PO 25 mg BEDTIME MICHELLE Administration Ferrous Sulfate 325 mg 05/09/22 21:00 05/09/22 19:48 Ferrous Sulfate Ec 325 Mg Tablet PO 325 mg BEDTIME MICHELLE Administration Hydromorphone HCl 0.5 mg 05/10/22 03:30 05/10/22 06:06 Hydromorphone 1 Mg/Ml Inj 1 Ml IVP 0.5 mg Q6H PRN Administration PAIN Hydromorphone HCl 0.5 mg 05/10/22 07:16 05/10/22 07:20 Hydromorphone 1 Mg/Ml Inj 1 Ml IVP 0.5 mg ONCE PRN Administration For preop pain/anxiety Imipenem/Cilastatin Sodium 500 100 mls @ 200 mls/hr 05/09/22 16:45 05/10/22 04:09 mg/ Sodium Chloride IV Infused Q6H MICHELLE Infusion Protocol Vancomycin/PEG/NADA/Lysine/Water 1,250 mg in 250 mls @ 250 mls/hr 05/10/22 00:00 05/10/22 00:21 Vancocin IV Infused Q12H MICHELLE Infusion Sodium Chloride 1,000 mls @ 30 mls/hr 05/10/22 07:30 05/10/22 09:20 Sodium Chloride 0.9% IV 05/11/22 07:29 30 mls/hr .Q24H MICHELLE Administration Levothyroxine Sodium 175 mcg 05/10/22 06:00 05/10/22 05:43 Levothyroxine 175 Mcg Tablet PO 175 mcg QAM MICHELLE Administration Multivitamins Therapeutic 1 tab 05/09/22 21:00 05/09/22 19:48 Multivitamin Therapeutic Tablet PO 1 tab BEDTIME MICHELLE Administration Ondansetron HCl 4 mg 05/09/22 16:23 05/09/22 20:52 Ondansetron 2 Mg/Ml Sdv 2 Ml IVP 4 mg Q6H PRN Administration NAUSEA AND VOMITING Tramadol HCl 100 mg 05/09/22 16:40 05/10/22 03:38 Tramadol 50 Mg Tablet PO 100 mg TID PRN Administration Pain Vitamin D 1,000 unit 05/09/22 21:00 05/09/22 19:48 Cholecalciferol (Vitamin D3) 1,000 Unit Tablet PO 1,000 unit BEDTIME MICHELLE Administration Zinc Gluconate 50 mg 05/09/22 21:00 05/09/22 19:48 Zinc Gluconate 50 Mg Tablet PO 50 mg BEDTIME MICHELLE Administration PFSH Acute PFSH: Medical History Chronic steroid use High risk medication use Hip pain, right Hypertension Hypothyroidism Immunization counseling Leukocytosis Rheumatoid arthritis Rheumatoid arthritis flare Seropositive rheumatoid arthritis of multiple sites Spondylolisthesis at L4-L5 level Surgical History History of foot surgery x5 right History of hand surgery 2right hand, 1 left hand History of hip replacement, total bilateral Status post incision and drainage Status post left knee replacement Family History Other CAD (coronary artery disease) Cancer Hyperlipidemia Hypertension Denies family history of Rheumatoid arthritis Diabetes Lupus Chronic kidney disease (CKD) Lung disease Stroke Social History Smoking and tobacco status: never smoked History of recent travel: No Vitals/I&O/Wt Last Vital Signs Temp 99.4 F 05/10/22 11:40 Pulse 89 05/10/22 13:02 Resp 16 05/10/22 13:02 BP 105/55 05/10/22 11:40 Pulse Ox 94 05/10/22 13:02 O2 Del Method 05/10/22 13:02 O2 Flow Rate 1 05/10/22 13:02 05/09/22 05/10/22 05/10/22 22:59 06:59 14:59 Intake Total 200 / 450 1305 / 1755 150 / 150 Output Total 5 / 5 Balance 200 / 450 1305 / 1755 145 / 145 Weight last 48 hrs Weight 200 lb Weight 200 lb Physical Exam Narrative: She is alert orient x3 she has good general appearance normal mood and affect. She is very frustrated and emotional as she has been battling these pains and problems for a long time. She has palpable pain over the right hip with a positive logroll on the right. Well-healed incision from previous surgery. Skin is red and painful to the touch through the right hip region. Mild palpatory pain into the low back. Mild palpable pain in the quad region on the right leg. No pain in the right knee or foot. She wiggles her toes calves are supple pulses are weak but palpable she is able to dorsiflex and plantarflex the right ankle bend the right knee without any problems. Left knee has purulence draining from the posterior aspect of the left posterior fossa. I was able to evacuate bloody purulence as I massaged the calf and soft tissues behind the knee. The left anterior knee incision does not appear infected, without much ballotable fluid in the left knee appreciated but she is tender with palpation diffusely about the left knee. She has pain with any attempts to bend the left knee. She has a dressing on the left foot from recent irrigation debridement procedure. She does have diffuse pain in the left leg calf region. Mildly positive logroll on the left as well. She moves both upper extremities without any problems at the shoulders elbows and wrists she can flex and extend rotate her cervical spine without any problem. Normal station to light touch in both upper extremities. Radial pulses are palpable. HENMT: COMMON NORMALS: normocephalic and atraumatic HEAD & SCALP: normocephalic and atraumatic Resp: COMMON NORMALS: normal respiratory effort Cardio: COMMON NORMALS: regular rate and regular rhythm RATE: regular rate RHYTHM: regular rhythm GI: COMMON NORMALS: Soft to palpation and non-tender PALPATION: Yes Soft to palpation : COMMON NORMALS: Yes no CVA tenderness BLADDER/KIDNEY EXAM: Yes no CVA tenderness Back/Pelvis: COMMON NORMALS: no CVA tenderness Psych: COMMON NORMALS: mental status grossly normal and cooperative Urinary Catheter Management: Frey: Cath Placed During This Visit: yes Reason for Continuing Indwelling Catheter: Other Urinary Catheter Date of Insertion: 05/09/22 Urinary Catheter Time of Insertion: 17:37 Data 05/10/22 03:36 05/10/22 03:36 Micro: Microbiology 05/09/22 10:25 Blood Culture - Preliminary Blood NEGATIVE TO DATE 05/09/22 10:03 Blood Culture - Preliminary Blood Staphylococcus aureus 05/09/22 16:05 Gram Stain - Final Toe - Wound A&P Assessment and plan (1) Right hip pain: Placed a 4 x 4's with ABDs and a compression wrap around the left knee. Will recommend CT scan with and without contrast of the left knee and right hip. My concern with the MRI is that there will be too much scatter from the knee and hip components which will not be useful in discerning abscess. Given her extensive complex history of sepsis we will await the results of the CT scans as well as communicate with Dr. Horan regarding further treatment with her having hip and knee components present. We will keep her n.p.o. after midnight on Thursday. Discussed this at length with the patient and she understands. Dr. Cole is ordered MRI scans of her left leg as well to help determine any abscess or osteomyelitis in her left tib-fib and ankle region. Discussed this case with Dr. Carlos at length as well and he agrees with the above-stated plan. More than 50% of the time spent with the patient today involved coordination of care, counseling and discussion of conservative versus surgical treatment options. Total amount of time spent with the patient was 45 minutes. (2) Left knee pain: Qualifiers: Chronicity: acute Qualified Code(s): M25.562 - Pain in left knee (3) History of sepsis: (4) Rheumatoid arthritis: Qualifiers: Rheumatoid arthritis location: multiple sites Rheumatoid factor presence: with rheumatoid factor Qualified Code(s): M05.79 - Rheumatoid arthritis with rheumatoid factor of multiple sites without organ or systems involvement Coding Level of Care Code New Pt Acute Leather Dresser for Chg Fwd Patient Type New History Comprehensive Exam Comprehensive Medical Decision Making High Complexity Diagnoses Right hip pain M25.551 Left knee pain M25.562 Chronicity: acute History of sepsis Z86.19 Rheumatoid arthritis M05.79 Rheumatoid arthritis location: multiple sites Rheumatoid factor presence: with rheumatoid factor Time Spent (min) 45
[2022-05-10] MEDS: pantoprazole DR 40 mg Tablet PO (15:58)
[2022-05-10] MEDS: iohexol 350 mg/mL 500 mL Btl (per mL) IV ×2 (19:42)
--- NOTE | 2022-05-10 20:01 | PM.PN ---
Subjective Subjective: Patient was seen and examined this morning, complaining of left knee pain, left knee purulent discharge. Medications: Medication Review Details: Generic Name Dose Route Start Last Admin Trade Name Lizzette PRN Reason Stop Dose Admin Acetaminophen 650 mg 05/09/22 16:24 05/10/22 04:31 Acetaminophen 32 5 Mg Tablet PO 650 mg Q6H PRN Administration Mild/Mod Pain Or Temp >/= 101 Ascorbic Acid 500 mg 05/09/22 21:00 05/09/22 19:48 Ascorbic Acid 50 0 Mg Tablet PO 500 mg BEDTIME MICHELLE Administration Diphenhydramine HC l 25 mg 05/09/22 21:00 05/09/22 19:48 Diphenhydramine 25 Mg Capsule PO 25 mg BEDTIME MICHELLE Administration Ferrous Sulfate 325 mg 05/09/22 21:00 05/09/22 19:48 Ferrous Sulfate Ec 325 Mg Tablet PO 325 mg BEDTIME MICHELLE Administration Hydromorphone HCl 0.5 mg 05/10/22 07:16 05/10/22 07:20 Hydromorphone 1 Mg/Ml Inj 1 Ml IVP 0.5 mg ONCE PRN Administration For preop pain/an xiety Imipenem/Cilastati n Sodium 500 100 mls @ 200 mls /hr 05/09/22 16:45 05/10/22 17:24 mg/ Sodium Chlor izzy IV 200 mls/hr Q6H MICHELLE Administration Protocol Vancomycin/PEG/NAD A/Lysine/Water 1,250 mg in 250 m ls @ 250 mls/hr 05/10/22 00:00 05/10/22 00:21 Vancocin IV Infused Q12H MICHELLE Infusion Sodium Chloride 1,000 mls @ 30 ml s/hr 05/10/22 07:30 05/10/22 09:20 Sodium Chloride 0.9% IV 05/11/22 07:29 30 mls/hr .Q24H MICHELLE Administration Sodium Chloride 1,000 mls @ 100 m ls/hr 05/10/22 11:00 05/10/22 15:57 Sodium Chloride 0.9% IV 05/11/22 10:59 100 mls/hr .Q10H MICHELLE Administration Levothyroxine Sodi um 175 mcg 05/10/22 06:00 05/10/22 05:43 Levothyroxine 17 5 Mcg Tablet PO 175 mcg QAM MICHELLE Administration Multivitamins Ther apeutic 1 tab 05/09/22 21:00 05/09/22 19:48 Multivitamin The rapeutic Tablet PO 1 tab BEDTIME MICHELLE Administration Ondansetron HCl 4 mg 05/09/22 16:23 05/09/22 20:52 Ondansetron 2 Mg /Ml Sdv 2 Ml IVP 4 mg Q6H PRN Administration NAUSEA AND VOMITI NG Pantoprazole Sodiu m 40 mg 05/10/22 12:00 05/10/22 15:[address] 40 Mg Tablet PO 40 mg DAILY@12 MICHELLE Administration Tramadol HCl 100 mg 05/09/22 16:40 05/10/22 03:38 Tramadol 50 Mg T ablet PO 100 mg TID PRN Administration Pain Vitamin D 1,000 unit 05/09/22 21:00 05/09/22 19:48 Cholecalciferol (Vitamin D3) 1,000 Unit Tablet PO 1,000 unit BEDTIME MICHELLE Administration Zinc Gluconate 50 mg 05/09/22 21:00 05/09/22 19:48 Zinc Gluconate 5 0 Mg Tablet PO 50 mg BEDTIME MICHELLE Administration Vitals/I&O/Wt Last Vital Signs Temp 98.3 F 05/10/22 14:05 Pulse 84 05/10/22 14:05 Resp 12 05/10/22 17:16 BP 101/66 05/10/22 14:05 Pulse Ox 95 05/10/22 14:05 O2 Del Method 05/10/22 16:00 O2 Flow Rate 2 05/10/22 16:00 05/10/22 05/10/22 05/10/22 06:59 14:59 22:59 Intake Total 1305 / 1755 150 / 150 240 / 390 Output Total 5 / 5 Balance 1305 / 1755 145 / 145 240 / 385 Weight last 48 hrs Weight 90.718 kg Weight 90.718 kg Physical Exam Const: COMMON NORMALS: patient oriented x3 Resp: COMMON NORMALS: normal respiratory effort, No retractions, No use of accessory muscles and clear to auscultation bilaterally EFFORT & INSPECTION: Yes symmetric chest movement AUSCULTATION: clear to auscultation bilaterally Cardio: COMMON NORMALS: regular rate, regular rhythm, S1 normal heart sound present, S2 normal heart sound present, No gallops present (Cardio), No murmurs present (Cardio), No rub (Cardio) and Peripheral pulses 2+ throughout RATE: regular rate RHYTHM: regular rhythm HEART SOUNDS: S1 normal heart sound present and S2 normal heart sound present PERIPHERAL PULSES: Peripheral pulses 2+ throughout GI: COMMON NORMALS: Normal to inspection, nondistended, normoactive bowel sounds present, Soft to palpation, non-tender, No hepatosplenomegaly present and no masses AUSCULTATION: Yes normoactive bowel sounds PALPATION: Yes Soft to palpation and Yes No hepatosplenomegaly present RECTAL EXAM: deferred Extremity: COMMON NORMALS: no clubbing, cyanosis or edema and no pedal edema NARRATIVE EXTREMITY EXAM: Left lower extremity dressing in place, dry and clean, left knee purulent discharge. Neuro: COMMON NORMALS: patient oriented x3 Urinary Catheter Management: Frey: Cath Placed During This Visit: yes Reason for Continuing Indwelling Catheter: Accurate Measurement of Urinary Output in Critically Ill Patients Urinary Catheter Date of Insertion: 05/09/22 Urinary Catheter Time of Insertion: 17:37 Data 05/10/22 03:36 05/10/22 03:36 Micro: Microbiology 05/09/22 16:05 Gram Stain - Final Toe - Wound Wound Culture - Preliminary Gram Negative Rods 05/09/22 10:25 Blood Culture - Preliminary Blood 05/10/22 10:40 Gram Stain - Final Other Source 05/10/22 10:40 Gram Stain - Final Leg - Left 05/10/22 10:40 Gram Stain - Final Toe - Toe 05/09/22 10:03 Blood Culture - Preliminary Blood Staphylococcus aureus A&P Assessment and plan (1) Cellulitis of left foot: (2) Non-pressure chronic ulcer of other part of left foot with necrosis of muscle: (3) Cellulitis: (4) Abscess of left foot: (5) Hypothyroidism: Qualifiers: Hypothyroidism type: acquired Qualified Code(s): E03.9 - Hypothyroidism, unspecified (6) Hypertension: Qualifiers: Hypertension type: primary hypertension Qualified Code(s): I10 - Essential (primary) hypertension Plan 51 year old female with past medical history of hypertension hypothyroidism rheumatoid arthritis, chronic steroid use, came in today with chief complaint of left feet infection, lately she has noticed increasing redness swelling and tenderness of the left feet,CT ankle LT w con: Is suggestive of abscess of left leg cellulitis. She is also complaining of left knee purulent discharge going on for some time, has left knee replacement done in the past. Assessment: Possible prosthetic joint infection lt knee /rt hip Staff aureus bacteremia Abscess of left feet s/p I&D by podiatry lt feet Cellulitis Hypothyroidism Hypertension History of RA History of chronic steroid History of MRSA infection in the past was discharged on 6 weeks IV Plan: Blood culture: 06/04 bottles staph aureus Follow repeat blood culture A.m. cortisol On hydrocortisone IV Follow MRI and CT scans reports Continue broad-spectrum antibiotics follow Podiatry on board s/p incision and drainage Orthopedic on board Continue levothyroxine Continue lisinopril Continue other home medications CODE STATUS; full code DVT prophylaxis on SCDs Attestations Medical Necessity Statement*: Hospital for continued IV antibiotics Coding Level of Care Code Acute Bottle Washer Machine for g Fwd Exam Detailed Diagnoses Cellulitis of left foot L03.116 Non-pressure chronic ulcer of other part of left foot with necrosis of muscle L97.523 Cellulitis L03.90 Abscess of left foot L02.612 Hypothyroidism E03.9 Hypothyroidism type: acquired Hypertension I10 Hypertension type: primary hypertension
[2022-05-10] MEDS: diphenhydrAMINE 25 mg Capsule PO (20:53)
[2022-05-10] MEDS: hydrocortisone 100 mg/2 mL SDV 50 MG IVP (20:54)
[2022-05-10] MEDS: meropenem 1,000 MG in sodium chloride 0.9% (plus) 50 ML 100 MG IV (22:22)
[2022-05-10] MEDS: vancomycin 1,250 MG/250 ML PIGGYBACK 250 MG IV (23:35)
[2022-05-11] VITALS: BP 101/63; PULSE 83; RESP 16; TEMP 36.8; O2SAT 91
[2022-05-11 04:00] VITALS: BP 112/71; PULSE 88; RESP 16; TEMP 36.8; O2SAT 94
[2022-05-11 04:00] LABS: Basophils # 0.2 10^3/uL (0.0-0.1); Basophils % 0.6 %; Eosinophils # 0.1 10^3/uL (0.0-0.8); Eosinophils % 0.2 %; Hematocrit 37.6 % (37.0-47.0); Lymphocytes # 0.9 10^3/uL (0.8-4.8); Lymphocytes % 2.9 %; Mean Corpuscular HGB Conc 31.9 g/dL (30.0-36.0); Mean Corpuscular Hemoglobin 28.8 pg (28.0-34.0); Mean Corpuscular Volume 90.2 fl (81-99); Mean Platelet Volume 11.2 fL (7.4-10.4); Monocytes # 0.8 10^3/uL (0.2-0.9); Monocytes % 2.7 %; Neutrophils # 27.98 10^3/uL (1.8-7.7); Neutrophils % 91.7 %; Nucleated Red Blood Cells % 0 %; Platelet Count 287 10^3/cmm (130-400); Red Blood Count 4.17 10^6/uL (4.1-5.3); Red Cell Distribution Width 15.9 % (12.1-15.1)
[2022-05-11 04:20] LABS: Anion Gap 13.4 (5-19); Blood Urea Nitrogen 10 mg/dL (6-20); Calcium 8.5 mg/dL (8.5-10.5); Carbon Dioxide 17 mmol/L (22-29); Chloride 102 mmol/L (98-107); Glomerular Filtration Rate 129.1 mL/min (90-130); Glucose 128 mg/dL (65-115); Osmolality Calculated 269 mOsm/kg (285-295); Potassium 3.4 mmol/L (3.5-5.1); Sodium 129 mmol/L (136-145)
[2022-05-11 04:35] LABS: Cortisol Random 4.62 ug/dL (2.47-19.5)
[2022-05-11 05:12] LABS: White Blood Count 30.5 10^3/uL (4.0-10.0)
[2022-05-11] MEDS: meropenem 1,000 MG in sodium chloride 0.9% (plus) 50 ML 100 MG IV ×3 (05:40→22:09)
[2022-05-11] MEDS: levothyroxine 175 mcg Tablet PO (05:40)
[2022-05-11] MEDS: TRAMadol 50 mg Tablet 100 MG PO ×2 (05:45→21:06)
[2022-05-11] MEDS: hydrocortisone 100 mg/2 mL SDV 50 MG IVP ×3 (07:55→20:38)
--- NOTE | 2022-05-11 08:30 | P.PN_ITS ---
Subjective Subjective: Patient seen at bedside this morning. Appears to be resting comfortably. States that her pain is under control as long she does not move. Orthopedics was consulted yesterday and evaluated the patient. She was noted to have pain with right hip and left knee examination. Lennox purulence was noted from left knee exam. CT scan of right hip and left knee were both obtained which showed fluid collections likely indicative of abscess. Patient denies any foot or ankle pain at this time. She denies any other pedal complaints. She states that she is tired of this pain and wants to get back to life as normal. Vitals/I&O/Wt Last Vital Signs Temp 98.3 F 05/11/22 04:00 Pulse 88 05/11/22 04:00 Resp 16 05/11/22 04:00 BP 112/71 05/11/22 04:00 Pulse Ox 94 05/11/22 04:00 O2 Del Method 05/11/22 07:59 O2 Flow Rate 2 05/10/22 16:00 05/10/22 05/11/22 05/11/22 22:59 06:59 14:59 Intake Total 390 / 1540 1066.667 / 2606.667 Output Total 950 / 955 Balance -560 / 585 1066.667 / 1651.667 Weight last 48 hrs Weight 200 lb Weight 200 lb Physical Exam Narrative: GENERAL: A&O x 3 VASCULAR: DP/PT pulses palpable 2/4 with CFT intact, <3seconds to distal digits, moderate edema to left foot up to the ankle DERMATOLOGICAL: Surgical dressing to the left lower extremity left intact this morning with no strikethrough noted MUSCULOSKELETAL: Ankle joint and hindfoot range of motion within normal limits bilaterally.? No tenderness with palpation of medial, lateral or anterior ankle bilaterally.? No tenderness with palpation of lateral ankle ligaments bilaterally.? No pain with palpation of midfoot bilaterally.? 5/5 muscle strength in all 4 quadrants of the lower extremity when tested against resistance.? No gross musculoskeletal deformities noted.? No pain with range of motion of ankle joint or subtalar joint.? No pain with fifth metatarsal phalangeal joint or range of motion of fifth metatarsophalangeal joint NEUROLOGICAL: Neurological sensation to the affected foot and ankle is diminished through L4-S1 dermatomes via 10g SWMF, diminished sensation extends proximally to the level of the midfoot IMAGIN views of the left ankle taken in the emergency department today personally turbid by me which show increased off tissue density throughout the level of the midfoot, no subcutaneous emphysema noted.? No fractures di slocations noted.? CT scan of the left ankle personally interpreted by me which shows increased fluid collection on fifth metatarsophalangeal joint likely indicative of abscess as this correlates clinically Urinary Catheter Management: Frey: Cath Placed During This Visit: yes Reason for Continuing Indwelling Catheter: Acute Urinary Retention or Obstruction Urinary Catheter Date of Insertion: 05/09/22 Urinary Catheter Time of Insertion: 17:37 Data 05/11/22 03:25 05/11/22 03:22 Micro: Microbiology 05/09/22 16:05 Gram Stain - Final Toe - Wound Wound Culture - Preliminary Gram Negative Rods 05/09/22 10:25 Blood Culture - Preliminary Blood 05/10/22 10:40 Gram Stain - Final Other Source 05/10/22 10:40 Gram Stain - Final Leg - Left 05/10/22 10:40 Gram Stain - Final Toe - Toe 05/09/22 10:03 Blood Culture - Preliminary Blood Staphylococcus aureus A&P Assessment and plan (1) Abscess of left foot: (2) Cellulitis: (3) Non-pressure chronic ulcer of other part of left foot with necrosis of muscle: (4) Cellulitis of left foot: Plan -Left foot abscess plantar fifth metatarsal head, left knee and right hip periprosthetic fluid accumulations indicative of probable abscess. Orthopedics following and providing recommendations -Labs and vitals reviewed -WBC 30.5 -ESR 10 -CRP 32 -Cultures pending -Abx IV vancomycin -No further surgical intervention per podiatry -Weight bearing: Heel weightbearing for transfers only to the left foot -Dressings: Left foot dressing changes to be done by podiatry -Continue current Abx therapy until ID and Sensitivity results -Trend labs -Discharge plan: Patient has fluid collection of left knee and right hip indicative of probable abscess. 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
--- NOTE | 2022-05-11 08:57 | P.PN_ITS ---
Subjective Subjective: Seen and examined this morning, was complaining of left knee pain, as well as severe right hip pain. Medications: Medication Review Details: Generic Name Dose Route Start Last Admin Trade Name Lizzette PRN Reason Stop Dose Admin Acetaminophen 650 mg 05/09/22 16:24 05/10/22 04:31 Acetaminophen 32 5 Mg Tablet PO 650 mg Q6H PRN Administration Mild/Mod Pain Or Temp >/= 101 Ascorbic Acid 500 mg 05/09/22 21:00 05/09/22 19:48 Ascorbic Acid 50 0 Mg Tablet PO 500 mg BEDTIME MICHELLE Administration Diphenhydramine HC l 25 mg 05/09/22 21:00 05/09/22 19:48 Diphenhydramine 25 Mg Capsule PO 25 mg BEDTIME MICHELLE Administration Ferrous Sulfate 325 mg 05/09/22 21:00 05/09/22 19:48 Ferrous Sulfate Ec 325 Mg Tablet PO 325 mg BEDTIME MICHELLE Administration Hydromorphone HCl 0.5 mg 05/10/22 07:16 05/10/22 07:20 Hydromorphone 1 Mg/Ml Inj 1 Ml IVP 0.5 mg ONCE PRN Administration For preop pain/an xiety Imipenem/Cilastati n Sodium 500 100 mls @ 200 mls /hr 05/09/22 16:45 05/10/22 17:24 mg/ Sodium Chlor izzy IV 200 mls/hr Q6H MICHELLE Administration Protocol Vancomycin/PEG/NAD A/Lysine/Water 1,250 mg in 250 m ls @ 250 mls/hr 05/10/22 00:00 05/10/22 00:21 Vancocin IV Infused Q12H MICHELLE Infusion Sodium Chloride 1,000 mls @ 30 ml s/hr 05/10/22 07:30 05/10/22 09:20 Sodium Chloride 0.9% IV 05/11/22 07:29 30 mls/hr .Q24H MICHELLE Administration Sodium Chloride 1,000 mls @ 100 m ls/hr 05/10/22 11:00 05/10/22 15:57 Sodium Chloride 0.9% IV 05/11/22 10:59 100 mls/hr .Q10H MICHELLE Administration Levothyroxine Sodi um 175 mcg 05/10/22 06:00 05/10/22 05:43 Levothyroxine 17 5 Mcg Tablet PO 175 mcg QAM MICHELLE Administration Multivitamins Ther apeutic 1 tab 05/09/22 21:00 05/09/22 19:48 Multivitamin The rapeutic Tablet PO 1 tab BEDTIME MICHELLE Administration Ondansetron HCl 4 mg 05/09/22 16:23 05/09/22 20:52 Ondansetron 2 Mg /Ml Sdv 2 Ml IVP 4 mg Q6H PRN Administration NAUSEA AND VOMITI NG Pantoprazole Sodiu m 40 mg 05/10/22 12:00 05/10/22 15:[address] 40 Mg Tablet PO 40 mg DAILY@12 MICHELLE Administration Tramadol HCl 100 mg 05/09/22 16:40 05/10/22 03:38 Tramadol 50 Mg T ablet PO 100 mg TID PRN Administration Pain Vitamin D 1,000 unit 05/09/22 21:00 05/09/22 19:48 Cholecalciferol (Vitamin D3) 1,000 Unit Tablet PO 1,000 unit BEDTIME MICHELLE Administration Zinc Gluconate 50 mg 05/09/22 21:00 05/09/22 19:48 Zinc Gluconate 5 0 Mg Tablet PO 50 mg BEDTIME MICHELLE Administration Vitals/I&O/Wt Last Vital Signs Temp 98.3 F 05/11/22 04:00 Pulse 88 05/11/22 04:00 Resp 16 05/11/22 04:00 BP 112/71 05/11/22 04:00 Pulse Ox 94 05/11/22 04:00 O2 Del Method 05/11/22 07:59 O2 Flow Rate 2 05/10/22 16:00 05/10/22 05/11/22 05/11/22 22:59 06:59 14:59 Intake Total 390 / 1540 1066.667 / 2606.667 Output Total 950 / 955 Balance -560 / 585 1066.667 / 1651.667 Weight last 48 hrs Weight 90.718 kg Weight 90.718 kg Physical Exam Const: COMMON NORMALS: patient oriented x3 Resp: COMMON NORMALS: normal respiratory effort, No retractions, No use of accessory muscles and clear to auscultation bilaterally EFFORT & INSPECTION: Yes symmetric chest movement AUSCULTATION: clear to auscultation bilaterally Cardio: COMMON NORMALS: regular rate, regular rhythm, S1 normal heart sound present, S2 normal heart sound present, No gallops present (Cardio), No murmurs present (Cardio), No rub (Cardio) and Peripheral pulses 2+ throughout RATE: regular rate RHYTHM: regular rhythm HEART SOUNDS: S1 normal heart sound present and S2 normal heart sound present PERIPHERAL PULSES: Peripheral pulses 2+ throughout GI: COMMON NORMALS: Normal to inspection, nondistended, normoactive bowel sounds present, Soft to palpation, non-tender, No hepatosplenomegaly present and no masses AUSCULTATION: Yes normoactive bowel sounds PALPATION: Yes Soft to palpation and Yes No hepatosplenomegaly present RECTAL EXAM: deferred Extremity: COMMON NORMALS: no clubbing, cyanosis or edema and no pedal edema NARRATIVE EXTREMITY EXAM: Left lower extremity dressing in place, dry and clean, left knee purulent discharge. Neuro: COMMON NORMALS: patient oriented x3 Urinary Catheter Management: Frey: Cath Placed During This Visit: yes Reason for Continuing Indwelling Catheter: Acute Urinary Retention or O bstruction Urinary Catheter Date of Insertion: 05/09/22 Urinary Catheter Time of Insertion: 17:37 Data 05/11/22 03:25 05/11/22 03:22 Micro: Microbiology 05/09/22 16:05 Gram Stain - Final Toe - Wound Wound Culture - Preliminary Gram Negative Rods 05/09/22 10:25 Blood Culture - Preliminary Blood 05/10/22 10:40 Gram Stain - Final Other Source 05/10/22 10:40 Gram Stain - Final Leg - Left 05/10/22 10:40 Gram Stain - Final Toe - Toe 05/09/22 10:03 Blood Culture - Preliminary Blood Staphylococcus aureus A&P Assessment and plan (1) Cellulitis of left foot: (2) Non-pressure chronic ulcer of other part of left foot with necrosis of muscle: (3) Cellulitis: (4) Abscess of left foot: (5) Hypothyroidism: Qualifiers: Hypothyroidism type: acquired Qualified Code(s): E03.9 - Hypothyroidism, unspecified (6) Hypertension: Qualifiers: Hypertension type: primary hypertension Qualified Code(s): I10 - Essential (primary) hypertension Plan 51 year old female with past medical history of hypertension hypothyroidism rheumatoid arthritis, chronic steroid use, came in with chief complaint of left feet infection, as well as left knee pain and right hip pain. lately she has noticed increasing redness swelling and tenderness of the left feet, left knee , right hip. She is also complaining of left knee purulent discharge going on for some time, has left knee replacement done in the past. Assessment: Sepsis 2/2 PJI : Knee Abscess, Rt hip joint infection: Fever, elevated WBC , Hypotension, source of Infection. Possible prosthetic joint infection lt knee /rt hip Staff aureus bacteremia Abscess of left feet s/p I&D by podiatry lt feet Cellulitis Hypothyroidism Hypertension History of RA History of chronic steroid History of MRSA infection in the past was discharged on 6 weeks IV Plan: CT left knee: Multifocal abscess, possible septic joint CT scan right hip: there is a very large fluid collection, which measures up to about 12 x 9 cm. Severe right lateral hip subcutaneous edema. Possible abscess hematoma. Wound culture: Blood culture: 06/04 bottles staph aureus Follow repeat blood culture A.m. cortisol:4.62 On hydrocortisone IV Follow MRI and CT scans reports Continue broad-spectrum antibiotics follow Podiatry on board s/p incision and drainage Orthopedic on board Continue levothyroxine Continue lisinopril Continue other home medications CODE STATUS; full code DVT prophylaxis on SCDs Attestations Medical Necessity Statement*: Patient is to in hospital for management of sepsis. Coding Level of Care Code Acute Normalizer for [facility] Fw Exam Detailed Diagnoses Cellulitis of left foot L03.116 Non-pressure chronic ulcer of other part of left foot with necrosis of muscle L97.523 Cellulitis L03.90 Abscess of left foot L02.612 Hypothyroidism E03.9 Hypothyroidism type: acquired Hypertension I10 Hypertension type: primary hypertension
--- NOTE | 2022-05-11 09:15 | PM.PN ---
Subjective Subjective: Patient resting comfortably. Complains of right hip pain right knee pain. Vitals/I&O/Wt Last Vital Signs Temp 98.3 F 05/11/22 04:00 Pulse 88 05/11/22 04:00 Resp 16 05/11/22 04:00 BP 112/71 05/11/22 04:00 Pulse Ox 94 05/11/22 04:00 O2 Del Method 05/11/22 07:59 O2 Flow Rate 2 05/10/22 16:00 05/10/22 05/11/22 05/11/22 22:59 06:59 14:59 Intake Total 390 / 1540 1066.667 / 2606.667 Output Total 950 / 955 Balance -560 / 585 1066.667 / 1651.667 Weight last 48 hrs Weight 200 lb Weight 200 lb Physical Exam Narrative: Patient is alert orient x3 has good general appearance normal mood and affect. Tender with palpation over the right hip positive logroll. Wiggles both lower extremities pain with palpation over the left knee and leg. Dressing at the left knee is clean and dry wiggles her toes are warm to the touch. Dressing over the left foot is clean and dry. Calves are supple. HENMT: COMMON NORMALS: normocephalic HEAD & SCALP: normocephalic Resp: COMMON NORMALS: normal respiratory effort Cardio: COMMON NORMALS: regular rate and regular rhythm RATE: regular rate RHYTHM: regular rhythm GI: COMMON NORMALS: Soft to palpation PALPATION: Yes Soft to palpation : COMMON NORMALS: Yes no CVA tenderness BLADDER/KIDNEY EXAM: Yes no CVA tenderness Back/Pelvis: COMMON NORMALS: no CVA tenderness Psych: COMMON NORMALS: mental status grossly normal and cooperative Urinary Catheter Management: Frey: Cath Placed During This Visit: yes Reason for Continuing Indwelling Catheter: Acute Urinary Retention or Obstruction Urinary Catheter Date of Insertion: 05/09/22 Urinary Catheter Time of Insertion: 17:37 Data 05/11/22 03:25 05/11/22 03:22 Micro: Microbiology 05/09/22 16:05 Gram Stain - Final Toe - Wound Wound Culture - Preliminary Gram Negative Rods 05/09/22 10:25 Blood Culture - Preliminary Blood 05/10/22 10:40 Gram Stain - Final Other Source 05/10/22 10:40 Gram Stain - Final Leg - Left 05/10/22 10:40 Gram Stain - Final Toe - Toe 05/09/22 10:03 Blood Culture - Preliminary Blood Staphylococcus aureus Other data: CT/CT knee LT w con [id number] IMPRESSION: 1. Multiple fluid collections about the knee, which do raise strong concern for multifocal abscesses and may imply a septic joint. Advise orthopedic consultation. 2. Diffuse osteopenia with arthroplasty. No acute fracture or focal bone destruction identified. 3. Diffuse subcutaneous edema. 4. Skin lesion at the posterolateral knee, as on series 4, image 57. Advise correlation with direct visual exam. This may be due to scar, skin lesion, or area of postop change. CT/CT hip RT wo/w con [id number] IMPRESSION: 1. Extremely large right lateral hip fluid collection as described, which may be due to postop hematoma, seroma, or abscess. This is deep to the subcutaneous tissue and appears involve the muscular layers/fascia. 2. Right hip arthroplasty. Negative for acute fracture. Full details above. ? A&P Assessment and plan (1) Left knee pain: Discussed the CT findings at length with Dr. Carlos he will discuss with the Ortho team tomorrow. We will keep her n.p.o. after midnight. Discussed at length with the patient her condition she verbalizes understanding. She verbalized that she was told by Dr. Horan in the past that she may have to transfer to a different institution for removal of hip and knee components due to the chronic nature of her infection. 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
[2022-05-11 09:20] VITALS: PULSE 88; RESP 16; O2SAT 96
[2022-05-11 12:00] VITALS: BP 128/77; PULSE 83; RESP 18; TEMP 36.9; O2SAT 94
[2022-05-11] MEDS: vancomycin 1,250 MG/250 ML PIGGYBACK 250 MG IV (13:09)
[2022-05-11] MEDS: pantoprazole DR 40 mg Tablet PO (13:09)
[2022-05-11 15:26] VITALS: BP 123/79; PULSE 85; RESP 12; TEMP 36.4; O2SAT 95
[2022-05-11 20:00] VITALS: BP 133/80; PULSE 86; RESP 17; TEMP 36.7; O2SAT 95
[2022-05-11] MEDS: diphenhydrAMINE 25 mg Capsule PO (20:38)
[2022-05-12] VITALS (23 sets, daily range): BP systolic 104–149; BP diastolic 65–100; PULSE 71–101; RESP 14–19; TEMP 35.9–37.2; O2SAT 93–100
[2022-05-12] MEDS: vancomycin 1,250 MG/250 ML PIGGYBACK 250 MG IV ×3 (01:20→23:38)
[2022-05-12 04:01] LABS: Basophils # 0.1 10^3/uL (0.0-0.1); Basophils % 0.3 %; Eosinophils # 0.1 10^3/uL (0.0-0.8); Eosinophils % 0.2 %; Hematocrit 34.9 % (37.0-47.0); Hemoglobin 11.3 g/dL (11.5-15.3); Mean Corpuscular HGB Conc 32.4 g/dL (30.0-36.0); Mean Corpuscular Hemoglobin 28.6 pg (28.0-34.0); Mean Corpuscular Volume 88.4 fl (81-99); Mean Platelet Volume 11.3 fL (7.4-10.4); Monocytes # 0.9 10^3/uL (0.2-0.9); Monocytes % 3.5 %; Neutrophils # 23.63 10^3/uL (1.8-7.7); Neutrophils % 90.7 %; Nucleated Red Blood Cells % 0 %; Platelet Count 284 10^3/cmm (130-400); Red Blood Count 3.95 10^6/uL (4.1-5.3); Red Cell Distribution Width 15.9 % (12.1-15.1)
[2022-05-12 04:25] LABS: Anion Gap 12.3 (5-19); Blood Urea Nitrogen 11 mg/dL (6-20); Calcium 8.4 mg/dL (8.5-10.5); Carbon Dioxide 19 mmol/L (22-29); Chloride 110 mmol/L (98-107); Glucose 113 mg/dL (65-115); Osmolality Calculated 286 mOsm/kg (285-295); Potassium 3.3 mmol/L (3.5-5.1); Sodium 138 mmol/L (136-145)
[2022-05-12] MEDS: meropenem 1,000 MG in sodium chloride 0.9% (plus) 50 ML 100 MG IV (05:35)
--- NOTE | 2022-05-12 07:13 | ANE.PACU2 ---
Inpatient post-anesthesia follow up: Airway intact: Yes Vital signs: Temperature 98.5 F Pulse Rate 78 Respiratory Rate 17 Blood Pressure 129/71 Pulse Oximetry 95 Oxygen Delivery Me thod Room Air Oxygen Flow Rate 2 Fraction of Inspir ed Oxygen Hydration adequate: Yes Nausea and vomiting: No Pain level: 2 Mental status: Baseline
--- NOTE | 2022-05-12 07:31 | P.CONIM_ITS ---
Providers/Reason For Consult Consulting Physician/Specialty*: Devang Horan MD; orthopedic surgeon Reason for Consult*: Left knee pain, right hip pain Attending Physician: Mendel Jacome MD Primary Care Provider: Kylie Stewart DO History of Present Illness History of Present Illness Son is a 51-year-old female patient known to me after a left total knee arthroplasty on May 14, 2020.? She did remarkably well after that procedure and actually never returned to follow-up.? She had a previous history of a right total hip in 2006 and a left in 2009.? He presents today complaining of the left knee pain.? He has a fairly long and complicated history which I have not been aware of in detail today.? She presented to the emergency room complaining of insidious onset pain in the right hip on December 28, 2021. ? Radiographs were obtained of both hips at that time which revealed total hip arthroplasties.? With no specific abnormalities were noted.? Concerns were raised about lumbar spine pathology was actually seen by our spine surgeon.? She returned to the emergency room on 01/05/2022 complaining of increasing hip pain and a day history of fevers.? Her white blood cell count was elevated at 27.7.? A CT at that time revealed no acute bony findings and again the previously placed total hip arthroplasty.? Subsequent MRI revealed a loculated fluid collection in the gluteus musculature with concerns raised about infection.? A gluteal drain was placed.? She was seen by Dr. Herrera on 01/08/2022 where he noted wounds in the left foot that been present for approximately 2 weeks.? He took the patient to the operating room on 01/09/2022.? Ultimate blood cultures x2, urine cultures, drainage from the hip, and wound cultures from the foot all grew staph aureus.? The patient was treated with 6 weeks of IV vancomycin which was stopped this past week.? Personally seen by me on 03/03/2022. Concerns were raised about a deep infection of the right hip there were efforts were made to obtain a aspiration but it sounds like that was never done. We did aspirate her left knee with only trace amount of bloody fluid being obtained and ultimate cultures of the aspirate were negative. Patient was seen in our ER on 05/09/2022 complaining of increased redness swelling in the left foot. He was taken to the operating room 2 days ago for exploration of the wound really no significant deep infection was noted. She also noted progressively increasing pain in her left knee and right hip. He states that the pain in her left knee and right hip have increased to the point where she can scarcely get around. She was seen by our spine team who was covering call this weekend and I have been asked to see the patient today. Patient denies any recent fevers or chills or body aches. Medications/Allergies Home Medications Medication Instructions Recorded Confirmed Last Taken Type tramadol 50 mg tablet 100 mg PO TID PRN Pain 03/14/20 05/09/22 05/09/22 04:00 History cyclobenzaprine 10 mg tablet 10 mg PO TID PRN muscle spasm #90 01/02/22 05/09/22 01/05/22 08:00 Rx tabs ibuprofen 800 mg tablet 800 mg PO Q4H PRN Pain 01/06/22 05/09/22 01/05/22 18:00 History prednisone 10 mg tablet 10 mg PO DAILY@12 01/06/22 05/09/22 05/08/22 History walker adjustable platform with #1 ea 01/14/22 05/09/22 Unknown Rx padded cuff duloxetine 30 mg capsule,delayed 30 mg PO DAILY #30 caps 05/01/22 05/09/22 04/30/22 Rx release (Cymbalta) pt only took one dos ascorbic acid (vitamin C) 500 mg 500 mg PO BEDTIME 05/09/22 05/09/22 05/08/22 History tablet (Vitamin C) cholecalciferol (vitamin D3) 25 25 mcg PO BEDTIME 05/09/22 05/09/22 05/08/22 History mcg (1,000 unit) capsule (Vitamin D3) diphenhydramine HCl 25 mg capsule 25 mg PO BEDTIME 05/09/22 05/09/22 05/08/22 History (Benadryl) ferrous sulfate 325 mg (65 mg 325 mg PO BEDTIME 05/09/22 05/09/22 05/08/22 History iron) tablet (iron) leflunomide 20 mg tablet 20 mg PO DAILY@12 05/09/22 05/09/22 05/08/22 History levothyroxine 175 mcg tablet 175 mcg PO QAM 05/09/22 05/09/2222 History lisinopril 5 mg tablet 5 mg PO DAILY@12 05/09/22 05/09/22 05/08/22 History multivitamin 1 tab PO BEDTIME 05/09/22 05/09/22 05/08/22 History omeprazole 20 mg capsule,delayed 20 mg PO DAILY@12 05/09/22 05/09/22 05/08/22 History release tocilizumab 162 mg/0.9 mL 162 mg SUBCUT Q7D 05/09/22 05/09/22 05/02/22 History subcutaneous syringe (Actemra) pt states stopped zinc acetate 50 mg (zinc) capsule 50 mg PO BEDTIME 05/09/22 05/09/22 05/07/22 History Allergies Allergy/AdvReac Type Severity Reaction Status Date / Time Penicillins Allergy Severe ALGY-Anaphy Verified 05/01/22 09:20 laxis amoxicillin Allergy Unknown Verified 05/01/22 09:20 IV RA Meds Allergy ALGY-Anaphy Uncoded 05/01/22 09:20 laxis Current Medications Generic Name Dose Route Start Last Admin Trade Name Freq PRN Reason Stop Dose Admin Acetaminophen 650 mg 05/09/22 16:24 05/10/22 04:31 Acetaminophen 325 Mg Tablet PO 650 mg Q6H PRN Administration Mild/Mod Pain Or Temp >/= 101 Ascorbic Acid 500 mg 05/09/22 21:00 05/11/22 21:06 Ascorbic Acid 500 Mg Tablet PO Not Given BEDTIME MICHELLE Diphenhydramine HCl 25 mg 05/09/22 21:00 05/11/22 20:38 Diphenhydramine 25 Mg Capsule PO 25 mg BEDTIME MICHELLE Administration Duloxetine HCl 30 mg 05/10/22 09:00 05/11/22 07:59 Duloxetine 30 Mg Capsule PO Not Given DAILY MICHELLE Ferrous Sulfate 325 mg 05/09/22 21:00 05/11/22 21:06 Ferrous Sulfate Ec 325 Mg Tablet PO Not Given BEDTIME MICHELLE Hydrocortisone Sodium Succinate 50 mg 05/10/22 21:00 05/11/22 20:38 Hydrocortisone 100 Mg/2 Ml Sdv IVP 50 mg TID MICHELLE Administration Vancomycin/PEG/NADA/Lysine/Water 1,250 mg in 250 mls @ 250 mls/hr 05/10/22 00:00 05/12/22 01:20 Vancocin IV 250 mls/hr Q12H MICHELLE Administration Meropenem 1,000 mg/ Sodium 50 mls @ 100 mls/hr 05/10/22 22:30 05/12/22 05:35 Chloride IV 100 mls/hr Q8H MICHELLE Administration Levothyroxine Sodium 175 mcg 05/10/22 06:00 05/12/22 05:28 Levothyroxine 175 Mcg Tablet PO Not Given QAM MICHELLE Multivitamins Therapeutic 1 tab 05/09/22 21:00 05/11/22 21:06 Multivitamin Therapeutic Tablet PO Not Given BEDTIME MICHELLE Ondansetron HCl 4 mg 05/09/22 16:23 05/09/22 20:52 Ondansetron 2 Mg/Ml Sdv 2 Ml IVP 4 mg Q6H PRN Administration NAUSEA AND VOMITING Pantoprazole Sodium 40 mg 05/10/22 12:00 05/11/22 13:[address] 40 Mg Tablet PO 40 mg DAILY@12 MICHELLE Administration Tramadol HCl 100 mg 05/09/22 16:40 05/11/22 21:06 Tramadol 50 Mg Tablet PO 100 mg TID PRN Administration Pain Vitamin D 1,000 unit 05/09/22 21:00 05/11/22 21:06 Cholecalciferol (Vitamin D3) 1,000 Unit Tablet PO Not Given BEDTIME MICHELLE Zinc Gluconate 50 mg 05/09/22 21:00 05/11/22 21:06 Zinc Gluconate 50 Mg Tablet PO Not Given BEDTIME MICHELLE PFSH Acute PFSH: Medical History (Updated 05/12/22 @ 07:51 by Devang Horan MD) Chronic steroid use High risk medication use Hip pain, right Hypertension Hypothyroidism Immunization counseling Leukocytosis Rheumatoid arthritis Rheumatoid arthritis flare Seropositive rheumatoid arthritis of multiple sites Spondylolisthesis at L4-L5 level Surgical History (Updated 05/12/22 @ 07:50 by Devang Horan MD) History of foot surgery x5 right History of hand surgery 2right hand, 1 left hand History of hip replacement, total bilateral Status post incision and drainage Status post left knee replacement Family History Other CAD (coronary artery disease) Cancer Hyperlipidemia Hypertension Denies family history of Rheumatoid arthritis Diabetes Lupus Chronic kidney disease (CKD) Lung disease Stroke Social History Smoking and tobacco status: never smoked History of recent travel: No Vitals/I&O/Wt Last Vital Signs Temp 98.5 F 05/12/22 04:00 Pulse 78 05/12/22 04:00 Resp 17 05/12/22 04:00 BP 129/71 05/12/22 04:00 Pulse Ox 95 05/12/22 04:00 O2 Del Method 05/11/22 16:00 O2 Flow Rate 2 05/10/22 16:00 05/11/22 05/12/22 05/12/22 22:59 06:59 14:59 Intake Total 100 / 350 Output Total 800 / 800 625 / 1425 Balance -700 / -450 -625 / -1075 Physical Exam Narrative: Left knee On examination of the patient's left knee there really is no obvious effusion.. There is no erythema. There is no fluctuance I can appreciate anywhere throughout the knee. She does hold the knee flexed approximately 20 degrees and will only allow me to bend at approximately 40 degrees. Posteriorly there are 2 small open sinuses draining fairly frankly purulent fluid. With palpation of the popliteal space purulent appearing fluid can be expressed. Right hip Right hip can be flexed approximately 60 degrees extend rotated 30 degrees and 0 to 20 degrees. There is no erythema She has some pain with all extremes of motion. Left foot Dressing is in place which is not removed Urinary Catheter Management: Frey: Cath Placed During This Visit: yes Reason for Continuing Indwelling Catheter: Accurate Measurement of Urinary Output in Critically Ill Patients Urinary Catheter Date of Insertion: 05/09/22 Urinary Catheter Time of Insertion: 17:37 Data 05/12/22 03:37 05/12/22 03:37 Micro: Microbiology 05/12/22 03:37 Blood Culture - Preliminary Blood SPECIMEN COLLECTED 05/12/22 03:39 Blood Culture - Preliminary Blood SPECIMEN COLLECTED 05/10/22 10:40 Anaerobic Culture - Preliminary Toe - Toe 05/10/22 10:40 Anaerobic Culture - Preliminary Leg - Left 05/10/22 10:40 Gram Stain - Final Other Source Anaerobic Culture - Preliminary Wound Culture - Preliminary 05/09/22 10:03 Blood Culture - Preliminary Blood Staphylococcus aureus 05/09/22 16:05 Gram Stain - Final Toe - Wound Wound Culture - Final Pseudomonas aeruginosa 05/10/22 10:40 Gram Stain - Final Toe - Toe Wound Culture - Preliminary Gram Negative Rods 05/10/22 10:40 Gram Stain - Final Leg - Left Wound Culture - Preliminary Xray Ortho: My impression: 2 views left knee are reviewed which reveal press-fit components in satisfactory position. radiographs of the right hip are reviewed which show a press-fit right total hip arthroplasty. There is no evidence of periprosthetic osteolysis or lucency Other CT: Radiologist's impression: LEFT KNEE IMPRESSION: 1. Multiple fluid collections about the knee, which do raise strong concern for multifocal abscesses and may imply a septic joint. Advise orthopedic consultation. 2. Diffuse osteopenia with arthroplasty. No acute fracture or focal bone destruction identified. 3. Diffuse subcutaneous edema. 4. Skin lesion at the posterolateral knee, as on series 4, image 57. Advise correlation with direct visual exam. This may be due to scar, skin lesion, or area of postop change. RIGHT HIP IMPRESSION: 1. Extremely large right lateral hip fluid collection as described, which may be due to postop hematoma, seroma, or abscess. This is deep to the subcutaneous tissue and appears involve the muscular layers/fascia. 2. Right hip arthroplasty. Negative for acute fracture. Full details above. ? ? A&P Assessment and plan (1) Abscess of left knee: Patient has a clear popliteal abscess of the left knee draining purulent fluid. I certainly think this would benefit from surgical debridement. We will proceed to the operating room for irrigation and debridement. The CT scan alludes to swelling extending over the medial lateral knee but this really is not clinically apparent. We can make a better delineation of the extent infection at the time of surgery. Discussed surgery with her and she agreed to proceed. (2) Status post left knee replacement: 's concerns about the status of the left total knee and the possibility of infection. Told her that definitive rule out would be aspiration of the knee. I discussed the role for aspiration with her and she agreed to proceed The left knee was prepped laterally with Betadine. An 18-gauge needle was introduced but no fluid could be aspirated. CPT 48194 Told her there is no radiographic evidence of involvement of her total knee. We were unsuccessful with her fluid aspirate to rule in or rule out infection. We can proceed with debridement and follow this clinically now. (3) Hip pain, right: The patient has quite a bit of a hip pain and suspicion of an abscess or fluid collection on CT. Components appear to be stable without evidence of loosening. I would suggest irrigation and debridement of the right hip and aspiration of the right hip at that time. 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
[2022-05-12] MEDS: morphine 4 mg/mL SDV 1 mL 2 MG IVP ×3 (08:21→19:32)
[2022-05-12] MEDS: hydrocortisone 100 mg/2 mL SDV 50 MG IVP ×3 (08:21→21:22)
--- NOTE | 2022-05-12 09:00 | MR_ITS ---
WS: [id number] MRI LEFT FOOT/ANKLE with and without CONTRAST. COMPARISON: CT 05/09/2022 Multiplanar, multisequence imaging is performed with and without contrast. MultiHance 20 mL IV. Moderate amount of soft tissue edema throughout the foot involving the plantar and dorsal surface at the level of the metatarsals extending into the toes. Soft tissue ulcerations along the plantar and lateral aspect of the fifth metatarsal head. Soft tissu e ulceration along the plantar surface of the fifth metatarsal head measures 14 mm in diameter and ex tends to the cortex. There is also edema within the plantar surface of the fifth metatarsal head pascual uring 3 x 8 mm. No definite enhancement. Soft tissue ulceration along the lateral fifth metatarsal measures 20 x 6 mm. Ulceration extends to t he cortex with no adjacent marrow edema. There is no well organized fluid collection. The edema with mild enhancement extends posterior to the talus and calcaneus but there is no collection. There is a small amount of fluid along the plantar a poneurosis. MR/MR foot LT wo/w con [id number] IMPRESSION: 1. Soft tissue ulcerations along the plantar and lateral fifth metatarsal head . These ulcerations extend to the cortex of the fifth metatarsal head. 2. There is edema but no enhancement associated with the plantar surface of th e fifth metatarsal head measuring 3 x 8 mm. Even without enhancement suspicious for early osteomyelitis. 3. Diffuse cellulitis throughout the foot and in the soft tissues posterior to the talus and calcaneus.
--- NOTE | 2022-05-12 09:00 | MR_ITS ---
WS: [id number] MRI LEFT LOWER EXTREMITY with and without CONTRAST. COMPARISON: None Multiplanar, multisequence imaging is performed with and without contrast. MultiHance 20 cc IV. Quality of this examination is limited. There is extensive soft tissue edema throughout the LEFT lower extremity beginning from the mid tibia to the ankle. No well-formed fluid collections or abscess identified. No enhancing fluid collection. There is enhancement in the soft tissues towards the ankle related to the cellulitis. No marrow cyndie a or fracture. MR/MR lower leg LT wo/w con [id number] IMPRESSION: 1. Quality of this examination is severely limited. 2. There is diffuse cellulitis but no focal fluid collections or enhancement t o suggest an abscess. No marrow edema. 3. Small focal abscesses or osteomyelitis may not be evident due to the subopt imal quality of this examination.
--- NOTE | 2022-05-12 09:26 | P.PN_ITS ---
Subjective Subjective: MRI aken this morning, c/o pain afterwards, planned to go to OR with Dr. Horan today for knee and right hip I& D Medications: Reviewed: Yes Vitals/I&O/Wt Last Vital Signs Temp 98 F 05/14/22 04:00 Pulse 74 05/14/22 08:00 Resp 16 05/14/22 04:00 BP 115/78 05/14/22 04:00 Pulse Ox 98 05/14/22 08:00 O2 Del Method 05/14/22 08:00 O2 Flow Rate 6 05/12/22 18:05 05/13/22 05/14/22 05/14/22 22:59 06:59 14:59 Intake Total 1194 / 3204 530 / 3734 Output Total 100 / 100 1750 / 1850 Balance 1094 / 3104 -1220 / 1884 Physical Exam Narrative: General: No acute distress, AO x3 HEENT: PERRLA, pupils bilaterally equal and reactive, pallors not present Chest: Normal vesicular breath sounds, no added sounds, equal good air entry bilaterally CVS: S1-S2 regular, no murmurs, no tachycardia, no gallops, no rubs Abdomen: Soft, nontender, no organomegaly, bowel sounds present Neuro: No focal deficits, no facial deformity, AO x3, power 5/5 in all limbs Extremities: right thigh with cellulitis, redness, warmth and tenderness, fluctuant swelling+. Fluctuant swelling additionally present on left popliteal fossa Urinary Catheter Management: Frey: Cath Placed During This Visit: yes Reason for Continuing Indwelling Catheter: Accurate Measurement of Urinary Output in Critically Ill Patients Urinary Catheter Date of Insertion: 05/09/22 Urinary Catheter Time of Insertion: 17:37 Data 05/13/22 02:26 05/13/22 02:26 Micro: Microbiology 05/09/22 10:25 Blood Culture - Final Blood Staphylococcus aureus 05/09/22 10:03 Blood Culture - Final Blood Staphylococcus aureus 05/10/22 10:40 Gram Stain - Final Other Source Anaerobic Culture - Preliminary Wound Culture - Final 05/10/22 10:40 Gram Stain - Final Leg - Left Wound Culture - Final 05/10/22 10:40 Anaerobic Culture - Preliminary Leg - Left 05/10/22 10:40 Anaerobic Culture - Preliminary Toe - Toe 05/12/22 17:45 Gram Stain - Final Knee - #1 05/12/22 17:45 Gram Stain - Final Knee - #1 05/12/22 16:57 Gram Stain - Final Hip - #1 05/12/22 03:37 Blood Culture - Preliminary Blood NEGATIVE TO DATE 05/12/22 03:39 Blood Culture - Preliminary Blood NEGATIVE TO DATE A&P Assessment and plan (1) Cellulitis of left foot: (2) Non-pressure chronic ulcer of other part of left foot with necrosis of muscle: (3) Cellulitis: (4) Abscess of left foot: (5) Hypothyroidism: Qualifiers: Hypothyroidism type: acquired Qualified Code(s): E03.9 - Hypothyroidism, unspecified (6) Hypertension: Qualifiers: Hypertension type: primary hypertension Qualified Code(s): I10 - Essential (primary) hypertension Plan 51 year old female with past medical history of hypertension hypothyroidism r heumatoid arthritis, chronic steroid use, came in with chief complaint of left feet infection, as well as left knee pain and right hip pain. Lately she has noticed increasing redness swelling and tenderness of the left feet, left knee , right hip. She is also complaining of left knee purulent discharge going on for some time, has left knee replacement done in the past. Sepsis 2/2 PJI : Knee Abscess, Rt hip joint infection: Fever, elevated WBC , Hypotension, source of Infection. Possible prosthetic joint infection lt knee /rt hip Staff aureus bacteremia Abscess of left feet s/p I&D by podiatry lt feet Cellulitis Hypothyroidism Hypertension History of RA History of chronic steroid History of MRSA infection in the past was discharged on 6 weeks IV Plan: CT left knee: Multifocal abscess, possible septic joint CT scan right hip: there is a very large fluid collection, which measures up to about 12 x 9 cm. Severe right lateral hip subcutaneous edema. Possible abscess hematoma. Wound culture: Blood culture: 06/04 bottles staph aureus Follow repeat blood culture A.m. 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
--- NOTE | 2022-05-12 10:56 | PC.CHAP ---
Pastoral Care Encounter/Spiritual Assessment Type of Contact [] Declined television director visit [] Patient/Family/Request visit [] Outpatient visit [] Follow-up visit [] Physician referral [] Code/Alert [X] Routine visit [] Staff referral [] Actively dying [] Patient sleeping [] Family support [] [] Out of room [] Palliative care [] [] Receiving care in room [] Pre-surgical visit [] Trauma [] Long length of stay [] ICU visit [X] Other:ISOLATION Relational/Emotional Strength [] Patient feels connected with others/family/visitors/staff [] Distress [] Loneliness/isolation [] Abandonment Spirituality of Patient [] Person of Mary [] Attends Protestant of their Mary [] Believes in Prayer [] Reads Bible or Jain materials [] There are Spiritual issues to be addressed Pharmacy Picking Tech Interventions [] Prayer [] Active listening [] Non-anxious presence [] Spiritual/emotional support [] Crisis/trauma care [] Spiritual counseling [] Bereavement support [] Provided bereavement packet [] Provided Bible/devotional materials [] Provided toy/stuffed animal, coloring book to patient or family member [] Provided Communion [] Anointing/[place] [] Salvation [] Completed spiritual assessment [] Other: Impact on Illness or Injury [] Angry [] Fearful [] Anxious [] Often cries [] Exhaustion [] Unable to work [] Unable to attend zoroastrianism [] Unable to walk/stand [] Unable to read [] Unable to drive [] Unable to eat/drink [] Unable to sleep [] Unable to be with family [] Patient intubated [] Other: Summary Time spent with patient
--- NOTE | 2022-05-12 12:14 | PC.SOCIAL ---
IMM Update pg 2 of IMM updated and reviewed w/ patient. Copy provided and Copy in chart dated, and initialed.
[2022-05-12] MEDS: gadobenate dimeglumine 20 mL vial IV (12:19)
[2022-05-12] MEDS: pantoprazole DR 40 mg Tablet PO (13:35)
[2022-05-12 13:59] LABS: Vancomycin Trough 11.5 ug/mL (10-15)
--- NOTE | 2022-05-12 15:59 | ANES.PREANE2 ---
Pre-Anesthetic Assessment Height/Weight: Height 1.6 m Weight 90.718 kg Temp Pulse Resp BP Pulse Ox O2 Del Method O2 Flow Rate 98.4 F 82 18 147/85 96 2 05/12/22 15:45 05/12/22 15:45 05/12/22 15:45 05/12/22 15:45 05/12/22 15:45 05/12/22 15:45 05/10/22 16:00 Preop Diagnosis: left knee, rheumatoid arthritis/Avascular necrosis Operation Date: 05/10/22 08:10 Proposed Procedures p Left Foot Incision And Drainage(Left) - Zach Cole DPM Operation Date: 05/12/22 15:40 Proposed Procedures p I&D left popliteal abscess(Left) - Devang Horan MD Familial anesthetic complications: None Was Beta Brandon taken within 24 hours: N/A Was Clonidine taken within 24 hours: N/A Last intake: > 8 hrs Social No alcohol and No tobacco Exam alert, oriented x 3, clear to auscultation bilaterally and regular rate & rhythm Airway Mallampati: Class II Dentition: false GI Gastroesophageal Reflux Disease Metabolic Morbid Obesity and Thyroid Disease [facility] Rheumatoid Arthritis Anesthetic Plan ASA status: 3 Anesthesia: General Risk of > 500 ml blood loss (7ml/kg in children): No Medications/Allergies Home Medications Medication Instructions Recorded Confirmed Last Taken Type tramadol 50 mg tablet 100 mg PO TID PRN Pain 03/14/20 05/09/22 05/09/22 04:00 History cyclobenzaprine 10 mg tablet 10 mg PO TID PRN muscle spasm #90 01/02/22 05/09/22 01/05/22 08:00 Rx tabs ibuprofen 800 mg tablet 800 mg PO Q4H PRN Pain 01/06/22 05/09/22 01/05/22 18:00 History prednisone 10 mg tablet 10 mg PO DAILY@12 01/06/22 05/09/22 05/08/22 History walker adjustable platform with #1 ea 01/14/22 05/09/22 Unknown Rx padded cuff duloxetine 30 mg capsule,delayed 30 mg PO DAILY #30 caps 05/01/22 05/09/22 04/30/22 Rx release (Cymbalta) pt only took one dos ascorbic acid (vitamin C) 500 mg 500 mg PO BEDTIME 05/09/22 05/09/22 05/08/22 History tablet (Vitamin C) cholecalciferol (vitamin D3) 25 25 mcg PO BEDTIME 05/09/22 05/09/22 05/08/22 History mcg (1,000 unit) capsule (Vitamin D3) diphenhydramine HCl 25 mg capsule 25 mg PO BEDTIME 05/09/22 05/09/22 05/08/22 History (Benadryl) ferrous sulfate 325 mg (65 mg 325 mg PO BEDTIME 05/09/22 05/09/22 05/08/22 History iron) tablet (iron) leflunomide 20 mg tablet 20 mg PO DAILY@12 05/09/22 05/09/22 05/08/22 History levothyroxine 175 mcg tablet 175 mcg PO QAM 05/09/22 05/09/22 05/08/22 History lisinopril 5 mg tablet 5 mg PO DAILY@12 05/09/22 05/09/22 05/08/22 History multivitamin 1 tab PO BEDTIME 05/09/22 05/09/22 05/08/22 History omeprazole 20 mg capsule,delayed 20 mg PO DAILY@12 05/09/22 05/09/22 05/08/22 History release tocilizumab 162 mg/0.9 mL 162 mg SUBCUT Q7D 05/09/22 05/09/22 05/02/22 History subcutaneous syringe (Actemra) pt states stopped zinc acetate 50 mg (zinc) capsule 50 mg PO BEDTIME 05/09/22 05/09/22 05/07/22 History Allergies Allergy/AdvReac Type Severity Reaction Status Date / Time Penicillins Allergy Severe ALGY-Anaphy Verified 05/01/22 09:20 laxis amoxicillin Allergy Unknown Verified 05/01/22 09:20 IV RA Meds Allergy ALGY-Anaphy Uncoded 05/01/22 09:20 laxis Current Medications Generic Name Dose Route Start Last Admin Trade Name Freq PRN Reason Stop Dose Admin Acetaminophen 650 mg 05/09/22 16:24 05/10/22 04:31 Acetaminophen 325 Mg Tablet PO 650 mg Q6H PRN Administration Mild/Mod Pain Or Temp >/= 101 Ascorbic Acid 500 mg 05/09/22 21:00 05/11/22 21:06 Ascorbic Acid 500 Mg Tablet PO Not Given BEDTIME MICHELLE Diphenhydramine HCl 25 mg 05/09/22 21:00 05/11/22 20:38 Diphenhydramine 25 Mg Capsule PO 25 mg BEDTIME MICHELLE Administration Duloxetine HCl 30 mg 05/10/22 09:00 05/12/22 08:23 Duloxetine 30 Mg Capsule PO Not Given DAILY MICHELLE Ferrous Sulfate 325 mg 05/09/22 21:00 05/11/22 21:06 Ferrous Sulfate Ec 325 Mg Tablet PO Not Given BEDTIME MICHELLE Hydrocortisone Sodium Succinate 50 mg 05/10/22 21:00 05/12/22 08:21 Hydrocortisone 100 Mg/2 Ml Sdv IVP 50 mg TID MICHELLE Administration Vancomycin/PEG/NADA/Lysine/Water 1,250 mg in 250 mls @ 250 mls/hr 05/10/22 00:00 05/12/22 13:35 Vancocin IV 250 mls/hr Q12H MICHELLE Administration Levothyroxine Sodium 175 mcg 05/10/22 06:00 05/12/22 05:28 Levothyroxine 175 Mcg Tablet PO Not Given QAM [facility] Multivitamins Therapeutic 1 tab 05/09/22 21:00 05/11/22 21:06 Multivitamin Therapeutic Tablet PO Not Given BEDTIME MICHELLE Ondansetron HCl 4 mg 05/09/22 16:23 05/09/22 20:52 Ondansetron 2 Mg/Ml Sdv 2 Ml IVP 4 mg Q6H PRN Administration NAUSEA AND VOMITING Pantoprazole Sodium 40 mg 05/10/22 12:00 05/12/22 13:[address] 40 Mg Tablet PO 40 mg DAILY@12 MICHELLE Administration Tramadol HCl 100 mg 05/09/22 16:40 05/11/22 21:06 Tramadol 50 Mg Tablet PO 100 mg TID PRN Administration Pain Vitamin D 1,000 unit 05/09/22 21:00 05/11/22 21:06 Cholecalciferol (Vitamin D3) 1,000 Unit Tablet PO Not Given BEDTIME MICHELLE Zinc Gluconate 50 mg 05/09/22 21:00 05/11/22 21:06 Zinc Gluconate 50 Mg Tablet PO Not Given BEDTIME MICHELLE Additional Medication Information Generic Name Dose Route Start Last Admin Trade Name Freq PRN Reason Stop Dose Admin Acetaminophen 650 mg 05/09/22 16:24 05/10/22 04:31 Acetaminophen 325 Mg Tablet PO 650 mg Q6H PRN Administration Mild/Mod Pain Or Temp >/= 101 Ascorbic Acid 500 mg 05/09/22 21:00 05/09/22 19:48 Ascorbic Acid 500 Mg Tablet PO 500 mg BEDTIME MICHELLE Administration Diphenhydramine HCl 25 mg 05/09/22 21:00 05/09/22 19:48 Diphenhydramine 25 Mg Capsule PO 25 mg BEDTIME MICHELLE Administration Ferrous Sulfate 325 mg 05/09/22 21:00 05/09/22 19:48 Ferrous Sulfate Ec 325 Mg Tablet PO 325 mg BEDTIME MICHELLE Administration Hydromorphone HCl 0.5 mg 05/10/22 07:16 05/10/22 07:20 Hydromorphone 1 Mg/Ml Inj 1 Ml IVP 0.5 mg ONCE PRN Administration For preop pain/anxiety Imipenem/Cilastatin Sodium 500 100 mls @ 200 mls/hr 05/09/22 16:45 05/10/22 17:24 mg/ Sodium Chloride IV 200 mls/hr Q6H MICHELLE Administration Protocol Vancomycin/PEG/NADA/Lysine/Water 1,250 mg in 250 mls @ 250 mls/hr 05/10/22 00:00 05/10/22 00:21 Vancocin IV Infused Q12H MICHELLE Infusion Sodium Chloride 1,000 mls @ 30 mls/hr 05/10/22 07:30 05/10/22 09:20 Sodium Chloride 0.9% IV 05/11/22 07:29 30 mls/hr .Q24H MICHELLE Administration Sodium Chloride 1,000 mls @ 100 mls/hr 05/10/22 11:00 05/10/22 15:57 Sodium Chloride 0.9% IV 05/11/22 10:59 100 mls/hr .Q10H MICHELLE Administration Levothyroxine Sodium 175 mcg 05/10/22 06:00 05/10/22 05:43 Levothyroxine 175 Mcg Tablet PO 175 mcg QAM MICHELLE Administration Multivitamins Therapeutic 1 tab 05/09/22 21:00 05/09/22 19:48 Multivitamin Therapeutic Tablet PO 1 tab BEDTIME MICHELLE Administration Ondansetron HCl 4 mg 05/09/22 16:23 05/09/22 20:52 Ondansetron 2 Mg/Ml Sdv 2 Ml IVP 4 mg Q6H PRN Administration NAUSEA AND VOMITING Pantoprazole Sodium 40 mg 05/10/22 12:00 05/10/22 15:[address] 40 Mg Tablet PO 40 mg DAILY@12 MICHELLE Administration Tramadol HCl 100 mg 05/09/22 16:40 05/10/22 03:38 Tramadol 50 Mg Tablet PO 100 mg TID PRN Administration Pain Vitamin D 1,000 unit 05/09/22 21:00 05/09/22 19:48 Cholecalciferol (Vitamin D3) 1,000 Unit Tablet PO 1,000 unit BEDTIME MICHELLE Administration Zinc Gluconate 50 mg 05/09/22 21:00 05/09/22 19:48 Zinc Gluconate 50 Mg Tablet PO 50 mg BEDTIME MICHELLE Administration PFS Anesthesia Medical History (Updated 05/12/22 @ 07:51 by Devang Horan MD) Chronic steroid use High risk medication use Hip pain, right Hypertension Hypothyroidism Immunization counseling Leukocytosis Rheumatoid arthritis Rheumatoid arthritis flare Seropositive rheumatoid arthritis of multiple sites Spondylolisthesis at L4-L5 level Surgical History (Updated 05/12/22 @ 07:50 by Devang Horan MD) History of foot surgery x5 right History of hand surgery 2right hand, 1 left hand History of hip replacement, total bilateral Status post incision and drainage Status post left knee replacement Family History Other CAD (coronary artery disease) Cancer Hyperlipidemia Hypertension Denies family history of Rheumatoid arthritis Diabetes Lupus Chronic kidney disease (CKD) Lung disease Stroke Social History Smoking and tobacco status: never smoked History of recent travel: No Data Anesthesia 05/12/22 03:37 05/12/22 03:37 Short CBC 05/11/22 05/12/22 Range/Units 03:25 03:37 WBC 30.5 H* 26.0 H (4.0-10.0) 10^3/uL Hgb 12.0 11.3 L (11.5-15.3) g/dL Hct 37.6 34.9 L (37.0-47.0) % MCV 90.2 88.4 (81-99) fl Plt Count 287 284 (130-400) 10^3/cmm Neut % (Auto) 91.7 90.7 % Neut # (Auto) 27.98 H 23.63 H (1.8-7.7) 10^3/uL BMP 05/11/22 05/12/22 03:22 03:37 Sodium 129 L 138 Potassium 3.4 L 3.3 L Chloride 102 110 H Carbon Dioxide 17 L 19 L BUN 10 11 Creatinine 0.5 0.4 L Glucose 128 H 113 Calcium 8.5 8.4 L Microbiology 05/09/22 10:25 Blood Culture - Preliminary Blood Staphylococcus aureus 05/09/22 10:03 Blood Culture - Preliminary Blood Staphylococcus aureus 05/10/22 10:40 Gram Stain - Final Leg - Left Wound Culture - Preliminary 05/10/22 10:40 Gram Stain - Final Other Source Anaerobic Culture - Preliminary Wound Culture - Preliminary 05/10/22 10:40 Gram Stain - Final Toe - Toe Wound Culture - Final Pseudomonas aeruginosa 05/12/22 03:37 Blood Culture - Preliminary Blood SPECIMEN COLLECTED 05/12/22 03:39 Blood Culture - Preliminary Blood SPECIMEN COLLECTED 05/10/22 10:40 Anaerobic Culture - Preliminary Toe - Toe 05/10/22 10:40 Anaerobic Culture - Preliminary Leg - Left 05/09/22 16:05 Gram Stain - Final Toe - Wound Wound Culture - Final Pseudomonas aeruginosa Cardiac Studies: Echocardiogram 01/06/22
[2022-05-12] MEDS: sodium chloride 0.9% 1,000 ML 30 ML IV (16:04)
--- NOTE | 2022-05-12 18:03 | PM.OP ---
Operative Report Date of procedure: May 12, 2022 Pre-op diagnosis: Preop Diagnosis deep abscess right hip Procedure done: Irrigation and debridement of deep abscess right hip Pathology: Routine and anaerobic culture sent x2 Surgeon: Devang Horan Anesthesia: General Estimated blood loss (mL): 100 Findings: The patient had a purulent abscess beneath the fascia bushra extending down the anterolateral femur and down to the posterior capsule of the hip. Hardware was not directly visualized. No necrotic or purulent fluid was identified Condition: stable Disposition: PACU Procedure: Carlos was taken to the operating room and given a general anesthesia. He is positioned in the lateral position with her left hip exposed. The left hip was entered through the previous posterior lateral incision. Dissection was carried down with electrocautery down to the fascia bushra. The fascia bushra was split where purulent fluid under pressure exited the hip. 2 sets of routine and anaerobic cultures were sent. The fascia was then split. The abscess was a identified to extend down the anterior lateral femur and posterior down to the hip capsule. The hip prosthesis itself was not visualized. The hip was then irrigated with 3 L of saline. A large deep Hemovac drain was placed anterior laterally fascia bushra was closed with 1 Vicryl. The lateral hip was closed with deep #2 Prolene interrupted 1 Prolene. Sterile dressings were applied. The patient was taken to recovery room in stable condition. The patient was then repositioned for the second procedure on the right leg.
--- NOTE | 2022-05-12 18:08 | PM.OP ---
Operative Report Date of procedure: May 12, 2022 Pre-op diagnosis: Preop Diagnosis popliteal abscess right knee Post-op diagnosis: same Procedure done: Incision and drainage of popliteal abscess right knee Surgeon: Devang Horan Anesthesia: General Estimated blood loss (mL): 25 Findings: The patient had a superficial abscess in the popliteal space. No necrotic material was identified. No deep communication to the descending the prosthesis was noted Condition: stable Disposition: PACU Procedure: After conclusion of the hip procedure the patient was rolled forward approximately 45 degrees to allow access to the right leg. The right lower extremity was prepped and draped in the usual fashion squaring off the popliteal fossa. Initially a transverse incision proximately 6 cm long was made across the popliteal fossa dissection was carried down through the draining sinus cavities revealing a superficial collection deep to subcutaneous fat. Planes were developed proximally and distally revealing no extension of the abscess. The wound was irrigated with saline. The wound was left open and packed with a moist soaked Kerlix sponge. And ABD pad and Rehan wrap were applied. The patient was rolled supine, extubated, and taken to cover room in stable condition.
[2022-05-12] MEDS: fentaNYL 50 mcg/mL INJ 2mL IVP (18:18)
--- NOTE | 2022-05-12 18:30 | ANE.PACU2 ---
Inpatient post-anesthesia follow up: Airway intact: Yes Vital signs: Temperature 98.2 F Pulse Rate 75 Respiratory Rate 16 Blood Pressure 105/73 Pulse Oximetry 97 Oxygen Delivery Me thod [ Room Air Current Rate & Del freddy] Oxygen Delivery Me thod Room Air Oxygen Flow Rate 6 Fraction of Inspir ed Oxygen Hydration adequate: Yes Nausea and vomiting: No Pain level: 1 Mental status: Baseline
[2022-05-12] MEDS: acetaminophen 500 mg Tablet 1000 MG PO (21:13)
[2022-05-12] MEDS: sodium chloride 0.9% 1,000 ML 80 ML IV (21:14)
[2022-05-12] MEDS: cefepime 2,000 MG in sodium chloride 0.9% (plus) 50 ML 100 MG IV (21:16)
[2022-05-12] MEDS: diphenhydrAMINE 25 mg Capsule PO (21:16)
[2022-05-12] MEDS: oxyCODONE 5 mg IR Tab/Cap PO (23:47)
[2022-05-13] VITALS (8 sets, daily range): BP systolic 99–107; BP diastolic 64–73; PULSE 74–78; RESP 16–17; TEMP 36.7–36.9; O2SAT 94–98
[2022-05-13] MEDS: acetaminophen 500 mg Tablet 1000 MG PO ×3 (02:35→18:49)
[2022-05-13 02:47] LABS: Basophils # 0.1 10^3/uL (0.0-0.1); Basophils % 0.5 %; Eosinophils # 0.3 10^3/uL (0.0-0.8); Eosinophils % 1.7 %; Hemoglobin 11.1 g/dL (11.5-15.3); Lymphocytes # 1.3 10^3/uL (0.8-4.8); Lymphocytes % 6.7 %; Mean Corpuscular HGB Conc 32.6 g/dL (30.0-36.0); Mean Corpuscular Hemoglobin 28.7 pg (28.0-34.0); Mean Corpuscular Volume 87.9 fl (81-99); Monocytes # 0.8 10^3/uL (0.2-0.9); Monocytes % 4.3 %; Neutrophils # 16.17 10^3/uL (1.8-7.7); Neutrophils % 86.1 %; Nucleated Red Blood Cells % 0 %; Platelet Count 255 10^3/cmm (130-400); Red Blood Count 3.87 10^6/uL (4.1-5.3); Red Cell Distribution Width 16.1 % (12.1-15.1); White Blood Count 18.8 10^3/uL (4.0-10.0)
[2022-05-13 03:12] LABS: Blood Urea Nitrogen 12 mg/dL (6-20); Glucose 105 mg/dL (65-115); Osmolality Calculated 290 mOsm/kg (285-295); Sodium 140 mmol/L (136-145)
[2022-05-13 03:42] LABS: Calcium 7.9 mg/dL (8.5-10.5); Carbon Dioxide 18 mmol/L (22-29); Chloride 112 mmol/L (98-107)
[2022-05-13 03:44] LABS: Anion Gap 13.5 (5-19); Potassium 3.5 mmol/L (3.5-5.1)
[2022-05-13] MEDS: levothyroxine 175 mcg Tablet PO (05:28)
[2022-05-13] MEDS: cefepime 2,000 MG in sodium chloride 0.9% (plus) 50 ML 100 MG IV ×3 (05:29→21:02)
[2022-05-13] MEDS: oxyCODONE 5 mg IR Tab/Cap PO (07:05)
--- NOTE | 2022-05-13 07:42 | PM.PN ---
Subjective Subjective: Patient seen at bedside. Doing well. No overnight events. Status post left knee abscess incision and drainage by orthopedics. States that she is sore but overall is feeling better. Vitals/I&O/Wt Last Vital Signs Temp 98.2 F 05/13/22 05:42 Pulse 75 05/13/22 05:42 Resp 16 05/13/22 07:05 BP 105/73 05/13/22 05:42 Pulse Ox 97 05/13/22 07:05 O2 Del Method 05/12/22 20:00 O2 Flow Rate 6 05/12/22 18:05 05/12/22 05/13/22 05/13/22 22:59 06:59 14:59 Intake Total 220 / 470 350 / 350 Output Total 215 / 215 950 / 1165 Balance 5 / 255 -950 / -695 350 / 350 Physical Exam Narrative: GENERAL: A&O x 3 VASCULAR: DP/PT pulses palpable 2/4 with CFT intact, <3seconds to distal digits, moderate edema to left foot up to the ankle DERMATOLOGICAL: Surgical dressing to the left lower extremity left intact this morning with no strikethrough noted MUSCULOSKELETAL: Ankle joint and hindfoot range of motion within normal limits bilaterally.? No tenderness with palpation of medial, lateral or anterior ankle bilaterally.? No tenderness with palpation of lateral ankle ligaments bilaterally.? No pain with palpation of midfoot bilaterally.? 5/5 muscle strength in all 4 quadrants of the lower extremity when tested against resistance.? No gross musculoskeletal deformities noted.? No pain with range of motion of ankle joint or subtalar joint.? No pain with fifth metatarsal phalangeal joint or range of motion of fifth metatarsophalangeal joint NEUROLOGICAL: Neurological sensation to the affected foot and ankle is diminished through L4-S1 dermatomes via 10g SWMF, diminished sensation extends proximally to the level of the midfoot IMAGING: MRI of left foot and ankle reviewed which show no appreciable abscess. Diffuse cellulitis is noted. Urinary Catheter Management: Frey: Cath Placed During This Visit: yes Reason for Continuing Indwelling Catheter: Required Immobilization for Trauma or Surgery or Anesthesia Urinary Catheter Date of Insertion: 05/09/22 Urinary Catheter Time of Insertion: 17:37 Data 05/13/22 02:26 05/13/22 02:26 Micro: Microbiology 05/12/22 03:37 Blood Culture - Preliminary Blood NEGATIVE TO DATE 05/12/22 03:39 Blood Culture - Preliminary Blood NEGATIVE TO DATE 05/10/22 10:40 Gram Stain - Final Other Source Anaerobic Culture - Preliminary Wound Culture - Preliminary 05/10/22 10:40 Anaerobic Culture - Preliminary Toe - Toe 05/10/22 10:40 Anaerobic Culture - Preliminary Leg - Left 05/09/22 10:25 Blood Culture - Preliminary Blood Staphylococcus aureus 05/09/22 10:03 Blood Culture - Preliminary Blood Staphylococcus aureus 05/10/22 10:40 Gram Stain - Final Leg - Left Wound Culture - Preliminary 05/10/22 10:40 Gram Stain - Final Toe - Toe Wound Culture - Final Pseudomonas aeruginosa A&P Assessment and plan (1) Abscess of left foot: (2) Cellulitis: (3) Non-pressure chronic ulcer of other part of left foot with necrosis of muscle: (4) Cellulitis of left foot: Plan -Left foot abscess plantar fifth metatarsal head, left knee and right hip periprosthetic fluid accumulations indicative of probable abscess. Orthopedics following and providing recommendations -Labs and vitals reviewed -WBC 18.8 -ESR 10 -CRP 32 -Cultures blood: Staff aureus, left fifth metatarsal: Pseudomonas -Abx IV vancomycin -No further surgical intervention per podiatry -Weight bearing: Heel weightbearing for transfers only to the left foot -Dressings: Left foot surgical dressing to be kept clean, dry, intact until follow-up with podiatry in the outpatient setting -Discharge plan: To be determined by orthopedic team -No further surgical intervention to be done by podiatry. Podiatry will sign off -Patient will follow up with Dr. Cole (podiatry) within 1 week of discharge. Patient is to call the office. -Podiatry will sign off. Please reconsult if needed Attestations Medical Necessity Statement*: See above Coding Level of Care Code Acute R D Internship for g Fwd Diagnoses Abscess of left foot L02.612 Cellulitis L03.90 Non-pressure chronic ulcer of other part of left foot with necrosis of muscle L97.523 Cellulitis of left foot L03.116
[2022-05-13] MEDS: morphine 4 mg/mL SDV 1 mL 2 MG IVP (08:10)
--- NOTE | 2022-05-13 09:38 | PM.PN ---
Subjective Subjective: Kristine complains of pain in both the left knee and right hip. Vitals/I&O/Wt Last Vital Signs Temp 98.1 F 05/13/22 08:00 Pulse 74 05/13/22 08:00 Resp 16 05/13/22 08:10 BP 107/67 05/13/22 08:00 Pulse Ox 98 05/13/22 08:00 O2 Del Method 05/12/22 20:00 O2 Flow Rate 6 05/12/22 18:05 05/12/22 05/13/22 05/13/22 22:59 06:59 14:59 Intake Total 220 / 470 350 / 350 Output Total 215 / 215 950 / 1165 Balance 5 / 255 -950 / -695 350 / 350 Physical Exam Narrative: Shirley right hip and thigh and less erythema. Left knee dressing intact Urinary Catheter Management: Frey: Cath Placed During This Visit: yes Reason for Continuing Indwelling Catheter: Required Immobilization for Trauma or Surgery or Anesthesia Urinary Catheter Date of Insertion: 05/09/22 Urinary Catheter Time of Insertion: 17:37 Data 05/13/22 02:26 05/13/22 02:26 Micro: Microbiology 05/12/22 17:45 Gram Stain - Final Knee - #1 05/12/22 17:45 Gram Stain - Final Knee - #1 05/12/22 16:57 Gram Stain - Final Hip - #1 05/12/22 03:37 Blood Culture - Preliminary Blood NEGATIVE TO DATE 05/12/22 03:39 Blood Culture - Preliminary Blood NEGATIVE TO DATE 05/10/22 10:40 Gram Stain - Final Other Source Anaerobic Culture - Preliminary Wound Culture - Preliminary 05/10/22 10:40 Anaerobic Culture - Preliminary Toe - Toe 05/10/22 10:40 Anaerobic Culture - Preliminary Leg - Left 05/09/22 10:25 Blood Culture - Preliminary Blood Staphylococcus aureus 05/09/22 10:03 Blood Culture - Preliminary Blood Staphylococcus aureus 05/10/22 10:40 Gram Stain - Final Leg - Left Wound Culture - Preliminary 05/10/22 10:40 Gram Stain - Final Toe - Toe Wound Culture - Final Pseudomonas aeruginosa A&P Assessment and plan (1) Infection of right prosthetic hip joint: Patient undoubtably has a deep infection of the right hip with significant burden of purulent material about the capsule and femur. She toyed arthritis and certainly some immunocompromise. The ideal would be a two-stage reimplantation. We will need to have equipment brought in to excised well fixed ingrowth components. I unfortunately will be leaving town for the next 2 months and will be unable to do this myself. I have reached out to Dr. Beltrán and Dr. Manriquez to see if they might be available to assist but have yet to hear any reply. It may be something best to [facility]. (2) Status post left knee replacement: The abscess of the left knee seems superficial and there certainly is nothing extending near the knee joint. There is no effusion in the knee and I could not aspirate any fluid. Left knee components are seen well fixed. There is nothing to suggest that the left knee is involved however with her history of bacteremia and multiple sources of infection is certainly is a very real concern. This will need to be followed along clinically. She will need delayed closure of her popliteal wound perhaps when the components are removed from the right hip Attestations Medical Necessity Statement*: Waiting plan for right total hip arthroplasty component removal Coding Level of Care Code Acute Herbarium Curator for Paolo Garcias Diagnoses Infection of right prosthetic hip joint T84.51XA Status post left knee replacement Z96.652
[2022-05-13] MEDS: hydrocortisone 100 mg/2 mL SDV 50 MG IVP ×3 (09:40→19:59)
[2022-05-13] MEDS: enoxaparin 40 mg/0.4 mL Syringe SUBCUT (09:40)
[2022-05-13] MEDS: sodium chloride 0.9% 1,000 ML 80 ML IV ×2 (09:44→21:02)
[2022-05-13] MEDS: pantoprazole DR 40 mg Tablet PO (11:27)
[2022-05-13] MEDS: vancomycin 1,250 MG/250 ML PIGGYBACK 250 MG IV (11:33)
--- NOTE | 2022-05-13 14:00 | PM.PN ---
Subjective Subjective: Complains of pain in bilateral legs. He is requesting muscle relaxants[place] [id number]. Medications: Reviewed: Yes Medication Review Details: Generic Name Dose Route Start Last Admin Trade Name Lizzette PRN Reason Stop Dose Admin Acetaminophen 650 mg 05/09/22 16:24 05/10/22 04:31 Acetaminophen 32 5 Mg Tablet PO 650 mg Q6H PRN Administration Mild/Mod Pain Or Temp >/= 101 Ascorbic Acid 500 mg 05/09/22 21:00 05/09/22 19:48 Ascorbic Acid 50 0 Mg Tablet PO 500 mg BEDTIME MICHELLE Administration Diphenhydramine HC l 25 mg 05/09/22 21:00 05/09/22 19:48 Diphenhydramine 25 Mg Capsule PO 25 mg BEDTIME MICHELLE Administration Ferrous Sulfate 325 mg 05/09/22 21:00 05/09/22 19:48 Ferrous Sulfate Ec 325 Mg Tablet PO 325 mg BEDTIME MICHELLE Administration Hydromorphone HCl 0.5 mg 05/10/22 07:16 05/10/22 07:20 Hydromorphone 1 Mg/Ml Inj 1 Ml IVP 0.5 mg ONCE PRN Administration For preop pain/an xiety Imipenem/Cilastati n Sodium 500 100 mls @ 200 mls /hr 05/09/22 16:45 05/10/22 17:24 mg/ Sodium Chlor izzy IV 200 mls/hr Q6H MICHELLE Administration Protocol Vancomycin/PEG/NAD A/Lysine/Water 1,250 mg in 250 m ls @ 250 mls/hr 05/10/22 00:00 05/10/22 00:21 Vancocin IV Infused Q12H MICHELLE Infusion Sodium Chloride 1,000 mls @ 30 ml s/hr 05/10/22 07:30 05/10/22 09:20 Sodium Chloride 0.9% IV 05/11/22 07:29 30 mls/hr .Q24H MICHELLE Administration Sodium Chloride 1,000 mls @ 100 m ls/hr 05/10/22 11:00 05/10/22 15:57 Sodium Chloride 0.9% IV 05/11/22 10:59 100 mls/hr .Q10H MICHELLE Administration Levothyroxine Sodi um 175 mcg 05/10/22 06:00 05/10/22 05:43 Levothyroxine 17 5 Mcg Tablet PO 175 mcg QAM MICHELLE Administration Multivitamins Ther apeutic 1 tab 05/09/22 21:00 05/09/22 19:48 Multivitamin The rapeutic Tablet PO 1 tab BEDTIME MICHELLE Administration Ondansetron HCl 4 mg 05/09/22 16:23 05/09/22 20:52 Ondansetron 2 Mg /Ml Sdv 2 Ml IVP 4 mg Q6H PRN Administration NAUSEA AND VOMITI NG Pantoprazole Sodiu m 40 mg 05/10/22 12:00 05/10/22 15:[address] 40 Mg Tablet PO 40 mg DAILY@12 MICHELLE Administration Tramadol HCl 100 mg 05/09/22 16:40 05/10/22 03:38 Tramadol 50 Mg T ablet PO 100 mg TID PRN Administration Pain Vitamin D 1,000 unit 05/09/22 21:00 05/09/22 19:48 Cholecalciferol (Vitamin D3) 1,000 Unit Tablet PO 1,000 unit BEDTIME MICHELLE Administration Zinc Gluconate 50 mg 05/09/22 21:00 05/09/22 19:48 Zinc Gluconate 5 0 Mg Tablet PO 50 mg BEDTIME MICHELLE Administration Vitals/I&O/Wt Last Vital Signs Temp 98.1 F 05/14/22 16:00 Pulse 76 05/14/22 16:00 Resp 18 05/14/22 16:00 BP 116/71 05/14/22 16:00 Pulse Ox 96 05/14/22 16:00 O2 Del Method 05/14/22 12:25 O2 Flow Rate 6 05/12/22 18:05 05/14/22 05/14/22 05/14/22 06:59 14:59 22:59 Intake Total 530 / 3734 1120 / 1120 290 / 1410 Output Total 1750 / 1850 Balance -1220 / 1884 1120 / 1120 290 / 1410 Physical Exam Narrative: General: No acute distress, AO x3 HEENT: PERRLA, pupils bilaterally equal and reactive, pallors not present Chest: Normal vesicular breath sounds, no added sounds, equal good air entry bilaterally CVS: S1-S2 regular, no murmurs, no tachycardia, no gallops, no rubs Abdomen: Soft, nontender, no organomegaly, bowel sounds present Neuro: No focal deficits, no facial deformity, AO x3, power 5/5 in all limbs Extremities: surgical dressing present on the right hip with interrupted sutures underneath, mild tenderness, soft no erythema. Left knee posterior wound with packing in place. Urinary Catheter Management: Frey: Cath Placed During This Visit: yes Reason for Continuing Indwelling Catheter: Required Immobilization for Trauma or Surgery or Anesthesia Urinary Catheter Date of Insertion: 05/09/22 Urinary Catheter Time of Insertion: 17:37 Data 05/13/22 02:26 05/13/22 02:26 Micro: Microbiology 05/10/22 10:40 Anaerobic Culture - Preliminary Leg - Left 05/10/22 10:40 Gram Stain - Final Other Source Anaerobic Culture - Preliminary Wound Culture - Final 05/12/22 16:57 Gram Stain - Final Hip - #1 Wound Culture - Preliminary Coag positive Staphylococcus 05/12/22 17:45 Gram Stain - Final Knee - #1 Abscess Culture - Preliminary Coag positive Staphylococcus 05/12/22 17:45 Gram Stain - Final Knee - #1 Wound Culture - Preliminary Coag positive Staphylococcus 05/09/22 10:25 Blood Culture - Final Blood Staphylococcus aureus 05/09/22 10:03 Blood Culture - Final Blood Staphylococcus aureus 05/10/22 10:40 Gram Stain - Final Leg - Left Wound Culture - Final A&P Assessment and plan (1) Infection of right prosthetic hip joint: (2) Osteomyelitis of metatarsal: (3) Status post left knee replacement: (4) Abscess of left knee: (5) Staphylococcus aureus septicemia: Plan 51-year-old lady with rheumatoid arthritis on immunosuppressants with a complicated infectious history as noted above in HPI. To summarize patient has been suffering from abscesses involving the left foot, left knee and right hip since December 2021. Additionally she has evidence of staph aureus septicemia with positive blood cultures on admission. She had staff aureus septicemia in December 2021 was well. 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 Continue steroids Add flexeril for better pain control pending further surgical planning, possible transfer ti higher center for right hip resection and 2 stage exchange. 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
[2022-05-13] MEDS: TRAMadol 50 mg Tablet 100 MG PO ×2 (14:14→19:58)
[2022-05-13] MEDS: cyclobenzaprine 10 mg Tablet PO (18:51)
[2022-05-13] MEDS: diphenhydrAMINE 25 mg Capsule PO (19:58)
[2022-05-14] VITALS (7 sets, daily range): BP systolic 103–126; BP diastolic 60–78; PULSE 72–79; RESP 15–18; TEMP 36.6–36.9; O2SAT 91–98
[2022-05-14] MEDS: acetaminophen 500 mg Tablet 1000 MG PO ×3 (02:20→19:58)
[2022-05-14] MEDS: levothyroxine 175 mcg Tablet PO (04:57)
[2022-05-14] MEDS: cefepime 2,000 MG in sodium chloride 0.9% (plus) 50 ML 100 MG IV ×3 (04:58→20:54)
[2022-05-14] MEDS: TRAMadol 50 mg Tablet 100 MG PO ×3 (04:59→21:04)
--- NOTE | 2022-05-14 06:34 | PM.PN ---
Subjective Subjective: POD 2 Patient resting comfortably no apparent distress. Denies any shortness of breath, chest pain, headaches. Vitals/I&O/Wt Last Vital Signs Temp 98 F 05/14/22 04:00 Pulse 72 05/14/22 04:00 Resp 16 05/14/22 04:00 BP 115/78 05/14/22 04:00 Pulse Ox 95 05/14/22 04:00 O2 Del Method 05/13/22 20:00 O2 Flow Rate 6 05/12/22 18:05 05/13/22 05/13/22 05/14/22 14:59 22:59 06:59 Intake Total 2009 1194 / 3204 530 / 3734 Output Total 100 / 100 1750 / 1850 Balance 2009 1094 / 3104 -1220 / 1884 Physical Exam Narrative: Patient is alert and orient x3 has good general appearance normal mood and affect. Dressing appears clean and dry Hemovac drain was discontinued. She had normal station light touch in her right lower extremity wiggling all toes dorsalis pedis posterior tib pulses were palpable. Dressing on the left foot. Dressing on the left knee. Urinary Catheter Management: Frey: Cath Placed During This Visit: yes Reason for Continuing Indwelling Catheter: Accurate Measurement of Urinary Output in Critically Ill Patients Urinary Catheter Date of Insertion: 05/09/22 Urinary Catheter Time of Insertion: 17:37 Data 05/13/22 02:26 05/13/22 02:26 Micro: Microbiology 05/09/22 10:25 Blood Culture - Final Blood Staphylococcus aureus 05/09/22 10:03 Blood Culture - Final Blood Staphylococcus aureus 05/10/22 10:40 Gram Stain - Final Other Source Anaerobic Culture - Preliminary Wound Culture - Final 05/10/22 10:40 Gram Stain - Final Leg - Left Wound Culture - Final 05/10/22 10:40 Anaerobic Culture - Preliminary Leg - Left 05/10/22 10:40 Anaerobic Culture - Preliminary Toe - Toe 05/12/22 17:45 Gram Stain - Final Knee - #1 05/12/22 17:45 Gram Stain - Final Knee - #1 05/12/22 16:57 Gram Stain - Final Hip - #1 05/12/22 03:37 Blood Culture - Preliminary Blood NEGATIVE TO DATE 05/12/22 03:39 Blood Culture - Preliminary Blood NEGATIVE TO DATE A&P Assessment and plan (1) Infection of right prosthetic hip joint: Hemovac drain was discontinued from right hip. Discussed with the nursing staff for dressing change today. Physical therapy to continue to work with the patient per Dr. Horan's orders. Continue medical management as directed. Incentive spirometry for pulmonary toilet. (2) Hip pain, right: (3) Status post left knee replacement: Attestations Medical Necessity Statement*: Defer to Medical team Coding Level of Care Code Acute Preparer Samples And Repairs for [facility] Fwd Diagnoses Infection of right prosthetic hip joint T84.51XA Hip pain, right M25.551 Status post left knee replacement Z96.652
[2022-05-14] MEDS: hydrocortisone 100 mg/2 mL SDV 50 MG IVP ×2 (07:30→16:48)
[2022-05-14] MEDS: ketorolac 30 mg/mL INJ 15 MG IVP (07:30)
[2022-05-14] MEDS: enoxaparin 40 mg/0.4 mL Syringe SUBCUT (07:30)
[2022-05-14] MEDS: sodium chloride 0.9% 1,000 ML 80 ML IV ×2 (10:57→20:57)
[2022-05-14] MEDS: pantoprazole DR 40 mg Tablet PO (12:47)
[2022-05-14] MEDS: cyclobenzaprine 10 mg Tablet PO (12:48)
--- NOTE | 2022-05-14 13:38 | XR_ITS ---
WS: [id number] CHEST XRAY TECHNIQUE: Portable chest. CLINICAL INFORMATION: Post PICC insertion FINDINGS: Heart: Cardiomegaly. Initial RIGHT PICC line enters the jugular vein. After repositioning PICC line i n good position with tip in the mid SVC. No pneumothorax. Lungs: Interstitial thickening with bibasilar atelectasis. Bones: Normal visualized bony structures. XR/XR chest 1V portable [id number] IMPRESSION: After repositioning PICC line in good position with tip in the mid SVC. No pneu mothorax.
--- NOTE | 2022-05-14 15:09 | PC.SOCIAL ---
IMM Update pg 2 of IMM updated and reviewed w/ patient. Copy provided and Copy in chart dated, and initialed.
[2022-05-14 15:30] LABS: SARS Covid-2 Antigen negative (Negative)
--- NOTE | 2022-05-14 16:29 | PC.OT ---
Patient receiving PICC line upon OT arrival. Will check back if time allows, continue to follow as medically appropriate.
--- NOTE | 2022-05-14 17:20 | PM.CONSULT ---
Providers/Reason For Consult Consulting Physician/Specialty*: Priya Murphy MD/Infectious Disease Reason for Consult*: MSSA septicemia, prosthetic joint infection Attending Physician: Jean Carlos Osborne MD Primary Care Provider: Kylie Stewart DO History of Present Illness History of Present Illness 51-year-old lady with a past medical history of rheumatoid arthritis, on treatment with prednisone 10 mg p.o. daily, Actemra weekly, leflunomide admitted to the hospital on May 09, 2022 after presenting with left leg cellulitis and sepsis. Patient has been experiencing difficulties with bilateral leg since at least December 2021. Per patient history and review of records, patient originally presented here in December 2021 with chief complaints of right leg swelling centered around her right hip. She also had pain and swelling around her left knee. MRI of the right hip at that time had shown postoperative changes relating to right total hip arthroplasty. This was a joint replaced ~ 20 years ago. A lobulated fluid collection was noted in the gluteus musculature around the right DEMARCO suspicious for infection. She underwent IR guided right hip aspiration. Drain was subsequently removed prior to discharge. Culture showed MSSA. She was additionally septicemic at that time and had multiple blood cultures positive for MSSA. Urine culture was additionally positive for MSSA. There were some concerning changes also at the left foot. This was evaluated by podiatry she was found to have a complex foot infection with abscess for which she underwent incision and drainage. She has had prior surgeries on her right foot 3 to 4 years ago which appears to be osteomyelitis and hardware infection in the right foot for which she needed removal of hardware and multiple surgical debridements. Per patient history staff aureus was isolated from those cultures. As far as she is aware she was not bacteremic at that time. On this recent surgery in December 2021 she had abscess extending around the lateral aspect of the left fifth metatarsal and the MP joint. Staph bacteremia was attributed to the foot infection. Discharge summary and progress notes from the time refer to the organism as MRSA, however review of susceptibilities shows that this was MSSA. It appears the MRI was discussed with orthopedics at the time and changes were not thought to be extending into the joint. She was discharged with recommendations to continue 6 weeks of IV vancomycin. PICC line was placed. Patient followed up with wound care. At the completion of 6 weeks (vancomycin, PICC line was removed. 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 Patient states that she never had any significant improvement in her hip or knee. During the course of her treatment her wound on the left foot healed, however she continued to have significant swelling around the left knee and right hip. Patient had limited mobility at her left knee and right hip to the point where she was only able to get from bed to chair while previously she was able to ambulate. More recently it got to the point where she had spontaneous drainage of pus from her left popliteal fossa which prompted her visit into the emergency room on May 09. She reports being afebrile during the course of her illness, however this can can be clouded by the fact that she is on immunosuppressants including Actemra. On admission on May 09 she had a white blood cell count of 30,000. CT of her left ankle showed prominent soft tissue edema and lytic changes in the fifth metatarsal head consistent with osteomyelitis. She was taken to the OR on May 10, 2022 with no appreciable deep space abscess was encountered. Small amount of purulence was encountered about the fifth metatarsal head at the location of an external wound. Tissues along the fifth metatarsal head appeared healthy and stable in appearance without any signs of infection or abscess. Cultures from the OR this time showed Pseudomonas aeruginosa. This was unlikely to be the source of her sepsis. CT of the knee subsequently performed on May 10 showed multiple fluid collections around the knee raising concern for multifocal abscesses. Of note there is underlying prosthetic knee which was replaced approximately [address] of the right hip showed an extremely large right lateral hip fluid collection deep to the subcutaneous tissue involving the muscular layers and fascia. She was taken to the OR on May 12 and underwent I&D of the popliteal abscess of the left knee. The wound is left open and currently packed with an ABD pad and Rehan wrap. No deep communication to the prosthesis was noted. She also underwent debridement of the deeps abscess over the right hip. She had abundant purulent material beneath the fascia bushra extending down the anterolateral femur to the posterior capsule of the hip. Cultures from the knee and hip are showing coag positive Staphylococcus thus far. Her blood culture from admission has additionally shown MSSA on 05/09. Patient has been on treatment with piperacillin tazobactam and vancomycin initially, changed to cefepime and vancomycin with recovery of cultures. Review of Systems General: Reports: 10 or more systems reviewed and unremarkable except in HPI and below Const: Denies: fever(s), chills or body aches Eyes: Denies: change in vision, blurry vision or photophobia ENMT: Reports: hoarseness; Denies: throat pain, enlarged tonsils, odynophagia or nasal congestion Card: Denies: chest pain, palpitations, irregular heart rhythm, edema, swelling of feet/ankles, lightheadedness, pre-syncope, dyspnea on exertion or orthopnea Resp: Denies: dyspnea, productive cough, non-productive cough, wheezing, stridor, pain on inspiration, change in phlegm color, hemoptysis or chest congestion GI: Denies: abdominal pain, nausea, vomiting, hematemesis, coffee ground emesis, dysphagia, heartburn, diarrhea, constipation, GI cramping, change in stool character, hematochezia or melena : Denies: flank pain, difficulty voiding, dysuria, urinary frequency, urinary urgency, urinary hesitancy or hematuria Musc: Reports: extremity pain, joint swelling and deformity; Denies: neck pain, back pain or joint warmth Neuro: Denies: headache(s), numbness in extremities, weakness in extremities, sensory changes, difficulty walking, frequent falls, dizziness, vertigo, behavioral changes, Slurred speech present or seizure-like activity Psych: Denies: anxiety, depression, suicidal ideation or homicidal ideation Endo: Denies: polyuria, polydipsia, tired all the time, cold intolerance or hot flashes Malick/Lymph: Denies: easy bruising or easy bleeding Medications/Allergies Home Medications Medication Instructions Recorded Confirmed Last Taken Type tramadol 50 mg tablet 100 mg PO TID PRN Pain 03/14/20 05/09/22 05/09/22 04:00 History cyclobenzaprine 10 mg tablet 10 mg PO TID PRN muscle spasm #90 01/02/22 05/09/22 01/05/22 08:00 Rx tabs ibuprofen 800 mg tablet 800 mg PO Q4H PRN Pain 01/06/22 05/09/22 01/05/22 18:00 History prednisone 10 mg tablet 10 mg PO DAILY@12 01/06/22 05/09/22 05/08/22 History walker adjustable platform with #1 ea 01/14/22 05/09/22 Unknown Rx padded cuff duloxetine 30 mg capsule,delayed 30 mg PO DAILY #30 caps 05/01/22 05/09/22 04/30/22 Rx release (Cymbalta) pt only took one dos ascorbic acid (vitamin C) 500 mg 500 mg PO BEDTIME 05/09/22 05/09/22 05/08/22 History tablet (Vitamin C) cholecalciferol (vitamin D3) 25 25 mcg PO BEDTIME 05/09/22 05/09/22 05/08/22 History mcg (1,000 unit) capsule (Vitamin D3) diphenhydramine HCl 25 mg capsule 25 mg PO BEDTIME 05/09/22 05/09/22 05/08/22 History (Benadryl) ferrous sulfate 325 mg (65 mg 325 mg PO BEDTIME 05/09/22 05/09/22 05/08/22 History iron) tablet (iron) leflunomide 20 mg tablet 20 mg PO DAILY@12 05/09/22 05/09/22 05/08/22 History levothyroxine 175 mcg tablet 175 mcg PO QAM 05/09/22 05/09/22 05/08/22 History lisinopril 5 mg tablet 5 mg PO DAILY@12 05/09/22 05/09/22 05/08/22 History multivitamin 1 tab PO BEDTIME 05/09/22 05/09/22 05/08/22 History omeprazole 20 mg capsule,delayed 20 mg PO DAILY@12 05/09/22 05/09/22 05/08/22 History release tocilizumab 162 mg/0.9 mL 162 mg SUBCUT Q7D 05/09/22 05/09/22 05/02/22 History subcutaneous syringe (Actemra) pt states stopped zinc acetate 50 mg (zinc) capsule 50 mg PO BEDTIME 05/09/22 05/09/22 05/07/22 History Allergies Allergy/AdvReac Type Severity Reaction Status Date / Time Penicillins Allergy Severe ALGY-Anaphy Verified 05/01/22 09:20 laxis amoxicillin Allergy Unknown Verified 05/01/22 09:20 IV RA Meds Allergy ALGY-Anaphy Uncoded 05/01/22 09:20 laxis Current Medications Generic Name Dose Route Start Last Admin Trade Name Freq PRN Reason Stop Dose Admin Acetaminophen 1,000 mg 05/12/22 19:30 05/14/22 12:47 Acetaminophen 500 Mg Tablet PO 1,000 mg Q8H MICHELLE Administration Ascorbic Acid 500 mg 05/09/22 21:00 05/13/22 20:03 Ascorbic Acid 500 Mg Tablet PO Not Given BEDTIME MICHELLE Cyclobenzaprine HCl 10 mg 05/13/22 17:07 05/14/22 12:48 Cyclobenzaprine 10 Mg Tablet PO 10 mg TID PRN Administration MUSCLE SPASMS Diphenhydramine HCl 25 mg 05/09/22 21:00 05/13/22 19:58 Diphenhydramine 25 Mg Capsule PO 25 mg BEDTIME MICHELLE Administration Duloxetine HCl 30 mg 05/10/22 09:00 05/14/22 07:30 Duloxetine 30 Mg Capsule PO Not Given DAILY MICHELLE Enoxaparin Sodium 40 mg 05/13/22 09:00 05/14/22 07:30 Enoxaparin 40 Mg/0.4 Ml Syringe SUBCUT 40 mg Q24H MICHELLE Administration Ferrous Sulfate 325 mg 05/09/22 21:00 05/13/22 20:03 Ferrous Sulfate Ec 325 Mg Tablet PO Not Given BEDTIME MICHELLE Hydrocortisone Sodium Succinate 50 mg 05/14/22 18:00 05/14/22 16:48 Hydrocortisone 100 Mg/2 Ml Sdv IVP 50 mg BID MICHELLE Administration Cefepime HCl 2,000 mg/ Sodium 50 mls @ 100 mls/hr 05/12/22 14:00 05/14/22 15:40 Chloride IV 100 mls/hr Q8H MICHELLE Administration Protocol Sodium Chloride 1,000 mls @ 80 mls/hr 05/12/22 19:18 05/14/22 10:57 Sodium Chloride 0.9% IV 80 mls/hr .[id number] MICHELLE Administration Ketorolac Tromethamine 15 mg 05/13/22 17:08 05/14/22 07:30 Ketorolac 30 Mg/Ml Inj IVP 05/18/22 17:07 15 mg Q8H PRN Administration MODERATE PAIN Levothyroxine Sodium 175 mcg 05/10/22 06:00 05/14/22 04:57 Levothyroxine 175 Mcg Tablet PO 175 mcg QAM MICHELLE Administration Morphine Sulfate 2 mg 05/12/22 19:18 05/13/22 08:10 Morphine 4 Mg/Ml Sdv 1 Ml IVP 2 mg Q1H PRN Administration PAIN not managed by oral agent Multivitamins Therapeutic 1 tab 05/09/22 21:00 05/13/22 20:03 Multivitamin Therapeutic Tablet PO Not Given BEDTIME MICHELLE Oxycodone HCl 5 - 10 mg 05/12/22 19:18 05/13/22 07:05 Oxycodone 5 Mg Ir Tab/Cap PO 10 mg Q4H PRN Administration MODERATE TO SEVERE PAIN Pantoprazole Sodium 40 mg 05/10/22 12:00 05/14/22 12:[address] 40 Mg Tablet PO 40 mg DAILY@12 MICHELLE Administration Tramadol HCl 100 mg 05/09/22 16:40 05/14/22 15:39 Tramadol 50 Mg Tablet PO 100 mg TID PRN Administration Pain Vitamin D 1,000 unit 05/09/22 21:00 05/13/22 20:03 Cholecalciferol (Vitamin D3) 1,000 Unit Tablet PO Not Given BEDTIME MICHELLE Zinc Gluconate 50 mg 05/09/22 21:00 05/13/22 20:03 Zinc Gluconate 50 Mg Tablet PO Not Given BEDTIME MICHELLE PFSH Acute PFSH: Medical History Chronic steroid use High risk medication use Hip pain, right Hypertension Hypothyroidism Immunization counseling Leukocytosis Rheumatoid arthritis Rheumatoid arthritis flare Seropositive rheumatoid arthritis of multiple sites Spondylolisthesis at L4-L5 level Surgical History History of foot surgery x5 right History of hand surgery 2right hand, 1 left hand History of hip replacement, total bilateral Status post incision and drainage Status post left knee replacement Family History Other CAD (coronary artery disease) Cancer Hyperlipidemia Hypertension Denies family history of Rheumatoid arthritis Diabetes Lupus Chronic kidney disease (CKD) Lung disease Stroke Social History Smoking and tobacco status: never smoked History of recent travel: No Vitals/I&O/Wt Last Vital Signs Temp 98.1 F 05/14/22 16:00 Pulse 76 05/14/22 16:00 Resp 18 05/14/22 16:00 BP 116/71 05/14/22 16:00 Pulse Ox 96 05/14/22 16:00 O2 Del Method 05/14/22 12:25 O2 Flow Rate room air 05/12/22 18:05 05/14/22 05/14/22 05/14/22 06:59 14:59 22:59 Intake Total 530 / 3734 1120 / 1120 Output Total 1750 / 1850 Balance -1220 / 1884 1120 / 1120 Physical Exam Narrative: General: No acute distress, AO x3 HEENT: PERRLA, pupils bilaterally equal and reactive, pallors not present Chest: Normal vesicular breath sounds, no added sounds, equal good air entry bilaterally CVS: S1-S2 regular, no murmurs, no tachycardia, no gallops, no rubs Abdomen: Soft, nontender, no organomegaly, bowel sounds present Neuro: No focal deficits, no facial deformity, AO x3, power 5/5 in all limbs Extremities: surgical dressing present on the right hip with interrupted sutures underneath, mild tenderness, soft no erythema. Left knee posterior wound with packing in place. Urinary Catheter Management: Frey: Cath Placed During This Visit: yes Reason for Continuing Indwelling Catheter: Accurate Measurement of Urinary Output in Critically Ill Patients Urinary Catheter Date of Insertion: 05/09/22 Urinary Catheter Time of Insertion: 17:37 Data 05/13/22 02:26 05/13/22 02:26 Other Labs: Radiology Impressions Ankle X-Ray 05/09/22 10:08 Impression: Soft tissue swelling over the medial and lateral malleolus and, in addition, over the dorsum of the left foot. Knee X-Ray 05/09/22 10:08 IMPRESSION: Stable appearance of the total knee arthroplasty. Resolution of the previous large joint effusion. Residual soft tissue edema Soft Tissue Ultrasound 05/09/22 10:17 IMPRESSION: Prominent edema in the anterior medial ankle soft tissue. Ankle CT 05/09/22 11:35 IMPRESSION: PROMINENT SOFT TISSUE EDEMA LYTIC CHANGE IN THE FIFTH METATARSAL HEAD CONSISTENT WITH OSTEOMYELITIS PLANTAR SUBCUTANEOUS ABSCESS OVERALL 2 CM IN SIZE WITH SMALL CENTRAL FLUID COLLECTION AT THE LEVEL OF THE FIFTH METATARSAL HEAD INCOMPLETELY IMAGED Pelvis X-Ray 05/09/22 14:18 Impression: 1. Stable bilateral hip arthroplasties. 2. Contrast material in urinary bladder. Hip/Pelvis X-Ray 05/09/22 22:23 IMPRESSION: No acute finding. Hip CT 05/10/22 14:11 IMPRESSION: 1. Extremely large right lateral hip fluid collection as described, which may be due to postop hematoma, seroma, or abscess. This is deep to the subcutaneous tissue and appears involve the muscular layers/fascia. 2. Right hip arthroplasty. Negative for acute fracture. Full details above. Knee CT 05/10/22 14:11 IMPRESSION: 1. Multiple fluid collections about the knee, which do raise strong concern for multifocal abscesses and may imply a septic joint. Advise orthopedic consultation. 2. Diffuse osteopenia with arthroplasty. No acute fracture or focal bone destruction identified. 3. Diffuse subcutaneous edema. 4. Skin lesion at the posterolateral knee, as on series 4, image 57. Advise correlation with direct visual exam. This may be due to scar, skin lesion, or area of postop change. Foot MRI 05/12/22 09:00 IMPRESSION: 1. Soft tissue ulcerations along the plantar and lateral fifth metatarsal head. These ulcerations extend to the cortex of the fifth metatarsal head. 2. There is edema but no enhancement associated with the plantar surface of the fifth metatarsal head measuring 3 x 8 mm. Even without enhancement suspicious for early osteomyelitis. 3. Diffuse cellulitis throughout the foot and in the soft tissues posterior to the talus and calcaneus. Lower Extremity MRI 05/12/22 09:00 IMPRESSION: 1. Quality of this examination is severely limited. 2. There is diffuse cellulitis but no focal fluid collections or enhancement to suggest an abscess. No marrow edema. 3. Small focal abscesses or osteomyelitis may not be evident due to the suboptimal quality of this examination. Chest X-Ray 05/14/22 13:38 IMPRESSION: After repositioning PICC line in good position with tip in the mid SVC. No pneumothorax. 01/06/22: Hip MRI MR/MR hip RT wo con* [id number] IMPRESSION: ? 1.? Prior postoperative changes RIGHT DEMARCO. 2.? Lobulated fluid collection gluteus musculature about the RIGHT DEMARCO is nonspecific but suspicious for infection. This may be due to postoperative seroma or fluid collection if recent surgery. Recommend correlation with clinical history. 3.? Bony images are degraded due to susceptibility artifact. 01/06: Echocardiogram: CONCLUSIONS ?LV systolic function is normal with EF of 60 to 65%. ?Mild tricuspid regurgitation. ?Valves are not well visualized. ?No comparison studies are available Micro: Microbiology 05/12/22 16:57 Gram Stain - Final Hip - #1 Wound Culture - Preliminary Coag positive Staphylococcus 05/12/22 17:45 Gram Stain - Final Knee - #1 Abscess Culture - Preliminary Coag positive Staphylococcus 05/12/22 17:45 Gram Stain - Final Knee - #1 Wound Culture - Preliminary Coag positive Staphylococcus 05/09/22 10:25 Blood Culture - Final Blood Staphylococcus aureus/ MSSA 05/09/22 10:03 Blood Culture - Final Blood Staphylococcus aureus/ MSSA 05/10/22 10:40 Gram Stain - Final Other Source Anaerobic Culture - Preliminary Wound Culture - Final 05/10/22 10:40 Gram Stain - Final Leg - Left Wound Culture - Final Blood culture May 09, 2022: MSSA Blood culture May 12, 2022: No growth to date left foot metatarsal head cx: Pseudomonas aeruginosa s/t cefepime, cipro, aztreonam, zosyn, imipenem Prior cultures: Prior blood culture: January 06, 2022: MSSA Blood culture 01/08/2022: No growth to date Urine culture January 06, 2022: MSSA January 07, 2022: I&D culture from right hip drain : MSSA January 09, 2022: I&D from left foot: MSSA. outpatient left knee aspirate 03/03/22 : skin renée , not worked up further , labelled contaminant (on iv vancomycin at this time) Pathology from right hip abscess: acute inflammation, cocci in clusters A&P Assessment and plan (1) Infection of right prosthetic hip joint: (2) Osteomyelitis of metatarsal: (3) Status post left knee replacement: (4) Abscess of left knee: (5) Staphylococcus aureus septicemia: Plan 51-year-old lady with rheumatoid arthritis on immunosuppressants with a complicated infectious history as noted above in HPI. To summarize patient has been suffering from abscesses involving the left foot, left knee and right hip since December 2021. Additionally she has evidence of staph aureus septicemia with positive blood cultures on admission. She had staff aureus septicemia in December 2021 was well. -She is status posttreatment with 6 weeks of IV vancomycin between December to April 2022 without any significant change in her symptoms except that her left foot has healed. -She is now status post I&D of the left foot, minimal amount of pus was obtained from here. Cultures have shown Pseudomonas aeruginosa. Of note this is the foot that had left fifth metatarsal osteomyelitis and abscess about the left fifth MTP joint in December 2021, cultures from which had revealed MSSA at that time. -She is status post I&D around the right hip, where she was noted to have extensive amount of purulent material deep to the fascia and purulent material extending about the capsule and the femur. This is suggestive of a prosthetic joint infection of the right hip. Cultures are so far showing coag positive Staphylococcus pending further identification. She previously had an abscess in the right thigh in December 2021 which was treated with IR drainage , cx had shown MSSA. -S/p I&D of the left popliteal fossa with drainage of abscess. Cultures showing coag positive Staphylococcus pending further identification. Changes not noted to be frankly extending down to the hardware, however given her complicated recent history presumed PJI certainly a possibility. She had a knee aspiration in March 2022 as an outpatient cultures from which had shown skin renée, which were not worked up further and labeled contaminants. -While it is possible that left foot abscess in December 2021 may have been the source of her bacteremia, given involvement at multiple sites at that time, this is likely to be a secondary embolization involving the foot ankle and hip. He has had a history of rheumatoid nodules over her bilateral lower feet, some of which have ulcerated over and resolved with local wound treatment however these may have been the source of initial bacteremia. -Echocardiogram from December 2021 TTE without any gross signs of endocarditis, however valves were not well visualized at this time. She has no cardiac hardware. No ports. Her PICC line has been removed. -Blood culture positive for MSSA on May 09, 2022, currently culture clear as of May 12, 2022. 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 Agree with orthopedics that ideally patient would need a two-stage exchange with removal of existing components, placement of spacers and treatment with IV antibiotics over the next 6 to 8 weeks followed by staged reimplantation. Unfortunately Dr. Horan is not currently available to perform the procedure at least until next month. Attempted to transfer patient to [facility], multiple calls have been placed today to [facility], [facility], [facility], [facility], [facility], however there are no beds available at any of these facilities to transfer care of the patient. -For now we will continue treatment with IV antibiotics while awaiting definitive surgical planning. -Discontinue vancomycin as no evidence of MRSA. -There is still remaining question of the knee joint. Intraoperatively changes were not noted to be extending down into the left knee, may possible that the hardware over the left knee may be seeded as well. -Continue cefepime at 2 g IV every 8 hour dosing for coverage of MSSA and Pseudomonas. 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 Further recommendations to be based on final surgical plans. Coding Level of Care Code Acute Assistant Director Of Admissions for Paolo Garcias Diagnoses Infection of right prosthetic hip joint T84.51XA Osteomyelitis of metatarsal M86.9 Status post left knee replacement Z96.652 Abscess of left knee L02.416 Staphylococcus aureus septicemia A41.01
--- NOTE | 2022-05-14 17:28 | PM.PN ---
Subjective Subjective: Hospital course, labs appreciated. On examination patient laying in bed. Complaining of pain behind the left knee. Clear surgical bandages present on the left knee and right hip. Complaining of pain at the feet near the sutures. Otherwise has remained hemodynamically stable and afebrile. Frey catheter in place. Vitals/I&O/Wt Last Vital Signs Temp 98.1 F 05/14/22 16:00 Pulse 76 05/14/22 16:00 Resp 18 05/14/22 16:00 BP 116/71 05/14/22 16:00 Pulse Ox 96 05/14/22 16:00 O2 Del Method 05/14/22 12:25 O2 Flow Rate 6 05/12/22 18:05 05/14/22 05/14/22 05/14/22 06:59 14:59 22:59 Intake Total 530 / 3734 1120 / 1120 Output Total 1750 / 1850 Balance -1220 / 1884 1120 / 1120 Physical Exam Narrative: General: No acute distress, AO x3 HEENT: PERRLA, pupils bilaterally equal and reactive, pallors not present Chest: Normal vesicular breath sounds, no added sounds, equal good air entry bilaterally CVS: S1-S2 regular, no murmurs, no tachycardia, no gallops, no rubs Abdomen: Soft, nontender, no organomegaly, bowel sounds present Neuro: No focal deficits, no facial deformity, AO x3, power 5/5 in all limbs Extremities: surgical dressing present on the right hip with interrupted sutures underneath, mild tenderness, soft no erythema. Left knee posterior wound with packing in place. Urinary Catheter Management: Frey: Cath Placed During This Visit: yes Reason for Continuing Indwelling Catheter: Accurate Measurement of Urinary Output in Critically Ill Patients Urinary Catheter Date of Insertion: 05/09/22 Urinary Catheter Time of Insertion: 17:37 Data 05/13/22 02:26 05/13/22 02:26 Micro: Microbiology 05/12/22 16:57 Gram Stain - Final Hip - #1 Wound Culture - Preliminary Coag positive Staphylococcus 05/12/22 17:45 Gram Stain - Final Knee - #1 Abscess Culture - Preliminary Coag positive Staphylococcus 05/12/22 17:45 Gram Stain - Final Knee - #1 Wound Culture - Preliminary Coag positive Staphylococcus 05/09/22 10:25 Blood Culture - Final Blood Staphylococcus aureus 05/09/22 10:03 Blood Culture - Final Blood Staphylococcus aureus 05/10/22 10:40 Gram Stain - Final Other Source Anaerobic Culture - Preliminary Wound Culture - Final 05/10/22 10:40 Gram Stain - Final Leg - Left Wound Culture - Final A&P Assessment and plan (1) Staphylococcus aureus septicemia: (2) Infection of right prosthetic hip joint: (3) Osteomyelitis of metatarsal: (4) Status post left knee replacement: (5) Abscess of left knee: (6) Rheumatoid arthritis: (7) Immunocompromised due to corticosteroids: (8) Chronic use of steroids: Plan 51-year-old lady with rheumatoid arthritis on immunosuppressants with a complicated infectious history as noted above in HPI. To summarize patient has been suffering from abscesses involving the left foot, left knee and right hip since December 2021. Additionally she has evidence of staph aureus septicemia with positive blood cultures on admission. She had staff aureus septicemia in December 2021 was well. 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 Trying to transfer patient to a higher center for multiple joint surgeries. But so far unsuccessful. Dr. Horan [place] out of the state for now. Will try to consult automotive consultant orthopedics. Wound care, weightbearing as per orthopedic team. Continue with cefepime 2 g IV every 8 hourly. Blood culture negative. Maintain blood pressure over 65 mean arterial pressure. Continue to hold off on leflunomide and Actemra. Wean down steroids to every 12 hourly. Will aggressively wheeled down to home within next 24 hours. Continue with oxycodone and tramadol for pain. Plan to DC Frey as per weightbearing within next 24 hours. Check lipid panel, vitamin B12, folate level, A1c in a.m. Monitor CBC, CMP daily. Goal blood pressure less than 140/90 mmHg. Full code. Regular diet. Protonix for PUD prophylaxis. Discharge planning: If patient is not able to transfer to a higher center for definitive orthopedic surgical treatment with washout then plan will be to discharge on IV antibiotics with PICC line till patient can get definitive surgery once Dr. Horan is back in 3 weeks. Home with home health versus SNF. In the interim we will try to reach out to orthopedics automotive consultant for further recommendations. 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
--- NOTE | 2022-05-14 17:58 | USCV_ITS ---
Kristine Barbosa Age: 51 Gender: F : 1970 Exam Date: 05/14/2022 19:12 Ordering Phys: Priya Murphy MD Technologist: SHANA [place] [facility] [place]: evaluate for endocarditis, persistent MSSA, MRSA on right hip prosthesis. No hx of cardiac intervention per patient. BP: 116 / 71 HR: 80 Rhythm: Sinus Technical Quality: Adequate MEASUREMENTS (Male / Female) Normal Values 2D ECHO LV Diastolic Diameter PLAX 4.2 cm 4.2 - 5.9 / 3.9 - 5.3 cm LV Systolic Diameter PLAX 2.5 cm IVS Diastolic Thickness 1.2 cm 0.6 - 1.0 / 0.6 - 0.9 cm IVS Systolic Thickness 1.5 cm LVPW Diastolic Thickness 1.1 cm 0.6 - 1.0 / 0.6 - 0.9 cm LVPW Systolic Thickness 1.2 cm LVOT Diameter 1.8 cm LV Ejection Fraction 2D Teich 72.0 % LV Ejection Fraction MOD 2C 58.9 % LV Ejection Fraction 2C AL 60.0 % LA Diameter 4.1 cm LA Width 4.9 cm LA Height 5.5 cm RA Width 3.1 cm RA Height 4.0 cm Aorta at Sinotubular Diameter 2.4 cm IVC Diameter 1.7 cm M-MODE Aortic Annulus Diameter 2.3 cm LA Ao Ratio MM 1.9 MV E Point Septal Separation 0.3 cm DOPPLER AV Peak Velocity 193.0 cm/s LVOT Peak Velocity 100.0 cm/s AV Area Cont Eq vti 1.3 cm squared AV Area Cont Eq pk 1.4 cm squared MV Area PHT 3.1 cm squared Mitral E to A Ratio 1.4 MV E' Velocity 58.5 cm/s Mitral E to MV E' Ratio 7.5 Mitral E to LV E' Lateral Ratio 6.2 Mitral E to LV E' Septal Ratio 9.7 TR Peak Velocity 272.0 cm/s TR Peak Gradient 29.6 mmHg TV Peak E Velocity 74.0 cm/s Right Atrial Pressure 10.0 mmHg Pulmonary Artery Systolic Pressu 39.6 mmHg PV Peak Velocity 131.0 cm/s RV Acceleration Time 0.1 s RV Ejection Time 0.3 s RV AcT/ET 0.3 FINDINGS Left Ventricle Normal left ventricular size, systolic function and wall thickness, with no regional wall motion abnormalities. Normal left ventricular wall thickness. Normal diastolic filling pattern. Left ventricular ejection fraction is estimated at 60 %. Right Ventricle The right ventricle is normal in size and function. Mild pulmonary hypertension, RVSP 39.6 mmHg. Right Atrium The right atrium is normal in size. Left Atrium The left atrium is normal in size. Mitral Valve Structurally normal mitral valve without significant stenosis or prolapse. There is no mitral regurgitation. Aortic Valve Structurally normal aortic valve without significant sclerosis or stenosis. There is no aortic regurgitation. Tricuspid Valve Structurally normal tricuspid valve without significant stenosis or regurgitation. Pulmonic Valve Structurally normal pulmonic valve without significant stenosis. There is no pulmonic regurgitation. Pericardium Normal pericardium without effusion. Aorta Normal ascending aorta dimension. IVC The inferior vena cava appears normal. CONCLUSIONS Normal left ventricular size, systolic function and wall thickness, with no regional wall motion abnormalities. Normal left ventricular wall thickness. Normal diastolic filling pattern. Left ventricular ejection fraction is estimated at 60 %. The right ventricle is normal in size and function. Mild pulmonary hypertension, RVSP 39.6 mmHg. No evidence for valvular vegetations on this study. No change from the previous study dictated 01/06/2022 Dr. Sean Chavez MD (Electronically Signed) Final Date: 15 May 2022 09:47 S
[2022-05-14] MEDS: morphine 4 mg/mL SDV 1 mL 2 MG IVP (19:58)
[2022-05-14] MEDS: diphenhydrAMINE 25 mg Capsule PO (20:54)
[2022-05-15] VITALS (9 sets, daily range): BP systolic 119–143; BP diastolic 74–84; PULSE 68–75; RESP 16–18; TEMP 36.5–36.9; O2SAT 95–98
[2022-05-15] MEDS: cyclobenzaprine 10 mg Tablet PO ×2 (00:16→08:39)
[2022-05-15] MEDS: ketorolac 30 mg/mL INJ 15 MG IVP (00:16)
[2022-05-15] MEDS: morphine 4 mg/mL SDV 1 mL 2 MG IVP (04:19)
[2022-05-15 04:22] LABS: Basophils # 0.1 10^3/uL (0.0-0.1); Basophils % 0.5 %; Eosinophils # 0.5 10^3/uL (0.0-0.8); Eosinophils % 4.2 %; Hematocrit 27.9 % (37.0-47.0); Hemoglobin 8.8 g/dL (11.5-15.3); Lymphocytes # 1.7 10^3/uL (0.8-4.8); Lymphocytes % 13.1 %; Mean Corpuscular HGB Conc 31.5 g/dL (30.0-36.0); Mean Corpuscular Hemoglobin 28.4 pg (28.0-34.0); Mean Platelet Volume 10.7 fL (7.4-10.4); Monocytes # 1.5 10^3/uL (0.2-0.9); Monocytes % 11.3 %; Neutrophils # 8.91 10^3/uL (1.8-7.7); Neutrophils % 69.3 %; Nucleated Red Blood Cells % 0 %; Platelet Count 256 10^3/cmm (130-400); Red Cell Distribution Width 16.2 % (12.1-15.1); White Blood Count 12.9 10^3/uL (4.0-10.0)
[2022-05-15 04:31] LABS: Estmated Average Glucose 103; Hemoglobin A1C 5.2 % (4.0-6.0)
[2022-05-15 05:09] LABS: Alanine Aminotransferase 8 U/L (0-33); Albumin Level 2.1 g/dL (3.5-5.2); Alkaline Phosphatase 79 U/L (35-105); Anion Gap 10.2 (5-19); Aspartate Amino Transferase 11 U/L (0-32); Blood Urea Nitrogen 9 mg/dL (6-20); Calcium 7.3 mg/dL (8.5-10.5); Carbon Dioxide 20 mmol/L (22-29); Chloride 112 mmol/L (98-107); Chol HDL Ratio 4.03 mg/dL (0.0-4.40); Cholesterol 117 mg/dL (0-200); Globulin 2.3 g/dL (1.3-4.6); Glucose 77 mg/dL (65-115); HDL Cholesterol 29 mg/dL (60-100); LDL Cholesterol Calculated 62 mg/dL (50-129); Osmolality Calculated 285 mOsm/kg (285-295); Potassium 3.2 mmol/L (3.5-5.1); Sodium 139 mmol/L (136-145); Total Bilirubin 0.2 mg/dL (0.15-1.2); Total Protein 4.4 g/dL (6.6-8.7); Triglycerides 130 mg/dL (0-150); VLDL Cholestrol Calculation 26 mg/dL (0-30)
[2022-05-15] MEDS: levothyroxine 175 mcg Tablet PO (05:51)
[2022-05-15] MEDS: cefepime 2,000 MG in sodium chloride 0.9% (plus) 50 ML 100 MG IV ×3 (05:51→21:15)
[2022-05-15] MEDS: TRAMadol 50 mg Tablet 100 MG PO ×2 (05:51→14:35)
[2022-05-15] MEDS: acetaminophen 500 mg Tablet 1000 MG PO ×3 (05:51→21:15)
[2022-05-15 06:50] LABS: Vitamin B12 1919 pg/mL (232-1245)
[2022-05-15 06:55] LABS: Folate Level 9.8 ng/mL (4.8-37.3)
[2022-05-15] MEDS: enoxaparin 40 mg/0.4 mL Syringe SUBCUT (08:39)
[2022-05-15] MEDS: hydrocortisone 100 mg/2 mL SDV 50 MG IVP ×2 (08:39→17:41)
[2022-05-15] MEDS: oxyCODONE 5 mg IR Tab/Cap PO ×2 (08:39→15:37)
--- NOTE | 2022-05-15 11:23 | PC.OT ---
OT TREATMENT ATTEMPTED THIS A.M. PATIENT REPORTS NURSING GAVE A BATH AT 0500 THIS MORNING AND SHE WOULD LIKE TO REST. IS AGREEABLE TO ATTEMPT OF OT TREATMENT IN P.M.
[2022-05-15] MEDS: pantoprazole DR 40 mg Tablet PO (13:03)
[2022-05-15] MEDS: sodium chloride 0.9% 1,000 ML 80 ML IV (14:36)
--- NOTE | 2022-05-15 15:20 | PM.PN ---
Subjective Subjective: No acute events overnight. Patient denies any nausea vomiting, headache. Has remained hemodynamically stable and afebrile. Vitals/I&O/Wt Last Vital Signs Temp 98.5 F 05/15/22 11:52 Pulse 68 05/15/22 11:52 Resp 18 05/15/22 11:52 BP 125/74 05/15/22 11:52 Pulse Ox 98 05/15/22 11:52 O2 Del Method 05/15/22 11:52 O2 Flow Rate 6 05/12/22 18:05 05/15/22 05/15/22 05/15/22 06:59 14:59 22:59 Intake Total 50 / 2610 1840 / 1840 Output Total 800 / 800 Balance -750 / 1810 1839 / 1840 Physical Exam Narrative: General: No acute distress, AO x3 HEENT: PERRLA, pupils bilaterally equal and reactive, pallors not present Chest: Normal vesicular breath sounds, no added sounds, equal good air entry bilaterally CVS: S1-S2 regular, no murmurs, no tachycardia, no gallops, no rubs Abdomen: Soft, nontender, no organomegaly, bowel sounds present Neuro: No focal deficits, no facial deformity, AO x3, power 5/5 in all limbs Extremities: surgical dressing present on the right hip with interrupted sutures underneath, mild tenderness, soft no erythema. Left knee posterior wound with packing in place. Urinary Catheter Management: Frey: Cath Placed During This Visit: yes Reason for Continuing Indwelling Catheter: Accurate Measurement of Urinary Output in Critically Ill Patients Urinary Catheter Date of Insertion: 05/09/22 Urinary Catheter Time of Insertion: 17:37 Data 05/15/22 04:02 05/15/22 04:02 Micro: Microbiology 05/14/22 00:25 MRSA Culture - Final Nose 05/10/22 10:40 Anaerobic Culture - Preliminary Toe - Toe 05/10/22 10:40 Anaerobic Culture - Preliminary Leg - Left 05/10/22 10:40 Gram Stain - Final Other Source Anaerobic Culture - Preliminary Wound Culture - Final 05/12/22 16:57 Gram Stain - Final Hip - #1 Wound Culture - Preliminary Coag positive Staphylococcus 05/12/22 17:45 Gram Stain - Final Knee - #1 Abscess Culture - Preliminary Coag positive Staphylococcus 05/12/22 17:45 Gram Stain - Final Knee - #1 Wound Culture - Preliminary Coag positive Staphylococcus A&P Assessment and plan (1) Staphylococcus aureus septicemia: (2) Infection of right prosthetic hip joint: (3) Osteomyelitis of metatarsal: (4) Status post left knee replacement: (5) Abscess of left knee: (6) Rheumatoid arthritis: (7) Immunocompromised due to corticosteroids: (8) Chronic use of steroids: Plan 51-year-old lady with rheumatoid arthritis on immunosuppressants with a complicated infectious history as noted above in HPI. To summarize patient has been suffering from abscesses involving the left foot, left knee and right hip since December 2021. Additionally she has evidence of staph aureus septicemia with positive blood cultures on admission. She had staff aureus septicemia in December 2021 was well. 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 Trying to transfer patient to a higher center for multiple joint surgeries. But so far unsuccessful. Dr. Horan is out of the state for now. Care discussed in detail he and Dr. Otto today. Dr. Otto in process of attempting to obtain resources to be able to perform procedure in house since patient is unable to be transferred to a higher center given lack of beds. Wound care, weightbearing as per orthopedic team. Continue with cefepime 2 g IV every [address] line in place. Blood culture negative. Maintain blood pressure over 65 mean arterial pressure. Continue to hold off on leflunomide and Actemra. Wean down steroids to every 12 hourly. Will aggressively wheeled down to home within next 24 hours. Continue with oxycodone and tramadol for pain. Plan to DC Frey as per weightbearing within next 24 hours. Monitor CBC, CMP daily. Goal blood pressure less than 140/90 mmHg. Full code. Regular diet. Protonix for PUD prophylaxis. Discharge planning: Dr. Otto in process to obtain resources to perform procedure in house as patient is not able to be transferred to a higher center. Discharge planning for now home with home health versus SNF. Patient will need to be on prolonged IV antibiotic course. Attestations Medical Necessity Statement*: Requires further hospitalization for prosthetic joint infection, MSSA bacteremia Time Spent in Patient Care: Greater than 35 minutes Coding Level of Care Code Acute Critical Care Physician Assistant for [facility] Diagnoses Staphylococcus aureus septicemia A41.01 Infection of right prosthetic hip joint T84.51XA Osteomyelitis of metatarsal M86.9 Status post left knee replacement Z96.652 Abscess of left knee L02.416 Rheumatoid arthritis M06.9 Immunocompromised due to corticosteroids D84.821; T38.0X5A; Z79.52 Chronic use of steroids
--- NOTE | 2022-05-15 17:53 | P.PN_ITS ---
Subjective Subjective: Infectious disease progress note. Complains of pain around the right knee. Dressing has been changed today. Plans for surgery still being worked out. Called [facility] today, no beds available to transfer patient there either. Medications: Reviewed: Yes Medication Review Details: Generic Name Dose Route Start Last Admin Trade Name Freq PRN Reason Stop Dose Admin Acetaminophen 650 mg 05/09/22 16:24 05/10/22 04:31 Acetaminophen 32 5 Mg Tablet PO 650 mg Q6H PRN Administration Mild/Mod Pain Or Temp >/= 101 Ascorbic Acid 500 mg 05/09/22 21:00 05/09/22 19:48 Ascorbic Acid 50 0 Mg Tablet PO 500 mg BEDTIME MICHELLE Administration Diphenhydramine HC l 25 mg 05/09/22 21:00 05/09/22 19:48 Diphenhydramine 25 Mg Capsule PO 25 mg BEDTIME MICHELLE Administration Ferrous Sulfate 325 mg 05/09/22 21:00 05/09/22 19:48 Ferrous Sulfate Ec 325 Mg Tablet PO 325 mg BEDTIME MICHELLE Administration Hydromorphone HCl 0.5 mg 05/10/22 07:16 05/10/22 07:20 Hydromorphone 1 Mg/Ml Inj 1 Ml IVP 0.5 mg ONCE PRN Administration For preop pain/an xiety Imipenem/Cilastati n Sodium 500 100 mls @ 200 mls /hr 05/09/22 16:45 05/10/22 17:24 mg/ Sodium Chlor izzy IV 200 mls/hr Q6H MICHELLE Administration Protocol Vancomycin/PEG/NAD A/Lysine/Water 1,250 mg in 250 m ls @ 250 mls/hr 05/10/22 00:00 05/10/22 00:21 Vancocin IV Infused Q12H MICHELLE Infusion Sodium Chloride 1,000 mls @ 30 ml s/hr 05/10/22 07:30 05/10/22 09:20 Sodium Chloride 0.9% IV 05/11/22 07:29 30 mls/hr .Q24H MICHELLE Administration Sodium Chloride 1,000 mls @ 100 m ls/hr 05/10/22 11:00 05/10/22 15:57 Sodium Chloride 0.9% IV 05/11/22 10:59 100 mls/hr .Q10H MICHELLE Administration Levothyroxine Sodi um 175 mcg 05/10/22 06:00 05/10/22 05:43 Levothyroxine 17 5 Mcg Tablet PO 175 mcg QAM MICHELLE Administration Multivitamins Ther apeutic 1 tab 05/09/22 21:00 05/09/22 19:48 Multivitamin The rapeutic Tablet PO 1 tab BEDTIME MICHELLE Administration Ondansetron HCl 4 mg 05/09/22 16:23 05/09/22 20:52 Ondansetron 2 Mg /Ml Sdv 2 Ml IVP 4 mg Q6H PRN Administration NAUSEA AND VOMITI NG Pantoprazole Sodiu m 40 mg 05/10/22 12:00 05/10/22 15:[address] 40 Mg Tablet PO 40 mg DAILY@12 MICHELLE Administration Tramadol HCl 100 mg 05/09/22 16:40 05/10/22 03:38 Tramadol 50 Mg T ablet PO 100 mg TID PRN Administration Pain Vitamin D 1,000 unit 05/09/22 21:00 05/09/22 19:48 Cholecalciferol (Vitamin D3) 1,000 Unit Tablet PO 1,000 unit BEDTIME MICHELLE Administration Zinc Gluconate 50 mg 05/09/22 21:00 05/09/22 19:48 Zinc Gluconate 5 0 Mg Tablet PO 50 mg BEDTIME MICHELLE Administration Vitals/I&O/Wt Last Vital Signs Temp 98.2 F 05/15/22 16:00 Pulse 75 05/15/22 16:00 Resp 18 05/15/22 16:00 BP 132/79 05/15/22 16:00 Pulse Ox 96 05/15/22 16:00 O2 Del Method 05/15/22 16:00 O2 Flow Rate 6 05/12/22 18:05 05/15/22 05/15/22 05/15/22 06:59 14:59 22:59 Intake Total 50 / 2610 18390 Output Total 800 / 800 Balance -750 / 1810 1839 Physical Exam Narrative: General: No acute distress, AO x3 HEENT: PERRLA, pupils bilaterally equal and reactive, pallors not present Chest: Normal vesicular breath sounds, no added sounds, equal good air entry bilaterally CVS: S1-S2 regular, no murmurs, no tachycardia, no gallops, no rubs Abdomen: Soft, nontender, no organomegaly, bowel sounds present Neuro: No focal deficits, no facial deformity, AO x3, power 5/5 in all limbs Extremities: surgical dressing present on the right hip with interrupted sutures underneath, mild tenderness, soft no erythema. Left knee posterior wound with packing in place. Urinary Catheter Management: Frey: Cath Placed During This Visit: yes Reason for Continuing Indwelling Catheter: Accurate Measurement of Urinary Output in Critically Ill Patients Urinary Catheter Date of Insertion: 05/09/22 Urinary Catheter Time of Insertion: 17:37 Data 05/15/22 04:02 05/15/22 04:02 Micro: Microbiology 05/10/22 10:40 Anaerobic Culture - Preliminary Toe - Toe 05/10/22 10:40 Anaerobic Culture - Preliminary Leg - Left 05/10/22 10:40 Gram Stain - Final Other Source Anaerobic Culture - Preliminary Wound Culture - Final 05/14/22 00:25 MRSA Culture - Final Nose 05/12/22 16:57 Gram Stain - Final Hip - #1 Wound Culture - Preliminary Coag positive Staphylococcus 05/12/22 17:45 Gram Stain - Final Knee - #1 Abscess Culture - Preliminary Coag positive Staphylococcus 05/12/22 17:45 Gram Stain - Final Knee - #1 Wound Culture - Preliminary Coag positive Staphylococcus Blood culture May 09, 2022: MSSA Blood culture May 12, 2022: No growth to date left foot metatarsal head cx: Pseudomonas aeruginosa s/t cefepime, cipro, aztreonam, zosyn, imipenem Prior cultures: Prior blood culture: January 06, 2022: MSSA Blood culture 01/08/2022: No growth to date Urine culture January 06, 2022: MSSA January 07, 2022: I&D culture from right hip drain : MSSA January 09, 2022: I&D from left foot: MSSA. outpatient left knee aspirate 03/03/22 : skin renée , not worked up further , labelled contaminant (on iv vancomycin at this time) Pathology from right hip abscess: acute inflammation, cocci in clusters A&P Assessment and plan (1) Infection of right prosthetic hip joint: (2) Osteomyelitis of metatarsal: (3) Status post left knee replacement: (4) Abscess of left knee: (5) Staphylococcus aureus septicemia: Plan Plan: -Presumed prosthetic joint infection of the right hip.? Agree with orthopedics that ideally patient would need a two-stage exchange with removal of existing components, placement of spacers and treatment with IV antibiotics over the next 6 to 8 weeks followed by staged reimplantation. Unfortunately Dr. Horan is not currently available to perform the procedure at least until next month.? Attempted to transfer patient to [facility], multiple calls have been placed today to [facility], [facility], [facility], [facility], [facility], [facility] however there are no beds available at any of these facilities to transfer care of the patient. -For now we will continue treatment with IV antibiotics while awaiting definitive surgical planning. - Plan discussed with Dr. walsh today - will attempt to arrange hardware and logistics to be able to perforn surgery here since patient unable to be trans ferred. -Continue cefepime at 2 g IV every 8 hour dosing for coverage of MSSA and Pseudomonas.? Anticipate at least 8 weeks of IV treatment -If existing hardware cannot be removed will likely add rifampin down the line and will need chronic suppression for long term care phlebotomist. - blood cx clear as of 05/12 - PICC placed 05/14 Further recommendations to be based on final surgical plans. Attestations Medical Necessity Statement*: iv abx, surgical planning Coding Level of Care Code Acute Civil Designer for [facility] Diagnoses Infection of right prosthetic hip joint T84.51XA Osteomyelitis of metatarsal M86.9 Status post left knee replacement Z96.652 Abscess of left knee L02.416 Staphylococcus aureus septicemia A41.01
[2022-05-15] MEDS: diphenhydrAMINE 25 mg Capsule PO (21:15)
[2022-05-16] VITALS (8 sets, daily range): BP systolic 111–130; BP diastolic 69–84; PULSE 70–76; RESP 16–20; TEMP 36.6–36.9; O2SAT 93–98
[2022-05-16 05:38] LABS: Basophils # 0.1 10^3/uL (0.0-0.1); Basophils % 0.9 %; Eosinophils # 0.6 10^3/uL (0.0-0.8); Eosinophils % 5.1 %; Hematocrit 29.5 % (37.0-47.0); Hemoglobin 9.5 g/dL (11.5-15.3); Lymphocytes # 1.9 10^3/uL (0.8-4.8); Lymphocytes % 16.7 %; Mean Corpuscular HGB Conc 32.2 g/dL (30.0-36.0); Mean Corpuscular Hemoglobin 29.2 pg (28.0-34.0); Mean Corpuscular Volume 90.8 fl (81-99); Mean Platelet Volume 10.9 fL (7.4-10.4); Monocytes # 1.2 10^3/uL (0.2-0.9); Monocytes % 10.1 %; Neutrophils # 7.58 10^3/uL (1.8-7.7); Neutrophils % 65.4 %; Nucleated Red Blood Cells % 0 %; Platelet Count 307 10^3/cmm (130-400); Red Blood Count 3.25 10^6/uL (4.1-5.3); Red Cell Distribution Width 16.6 % (12.1-15.1); White Blood Count 11.6 10^3/uL (4.0-10.0)
[2022-05-16 05:54] LABS: Alanine Aminotransferase 11 U/L (0-33); Albumin Level 2.4 g/dL (3.5-5.2); Alkaline Phosphatase 88 U/L (35-105); Anion Gap 9.6 (5-19); Aspartate Amino Transferase 16 U/L (0-32); Blood Urea Nitrogen 10 mg/dL (6-20); Calcium 8.4 mg/dL (8.5-10.5); Carbon Dioxide 21 mmol/L (22-29); Chloride 114 mmol/L (98-107); Globulin 2.4 g/dL (1.3-4.6); Glucose 134 mg/dL (65-115); Osmolality Calculated 293 mOsm/kg (285-295); Potassium 3.6 mmol/L (3.5-5.1); Sodium 141 mmol/L (136-145); Total Bilirubin 0.2 mg/dL (0.15-1.2); Total Protein 4.8 g/dL (6.6-8.7)
[2022-05-16] MEDS: acetaminophen 500 mg Tablet 1000 MG PO ×3 (06:15→21:16)
[2022-05-16] MEDS: levothyroxine 175 mcg Tablet PO (06:15)
[2022-05-16] MEDS: cefepime 2,000 MG in sodium chloride 0.9% (plus) 50 ML 100 MG IV ×2 (06:16→13:08)
[2022-05-16] MEDS: TRAMadol 50 mg Tablet 100 MG PO (07:41)
[2022-05-16] MEDS: enoxaparin 40 mg/0.4 mL Syringe SUBCUT (07:41)
[2022-05-16] MEDS: cyclobenzaprine 10 mg Tablet PO (07:41)
[2022-05-16] MEDS: hydrocortisone 100 mg/2 mL SDV 50 MG IVP (10:08)
[2022-05-16] MEDS: pantoprazole DR 40 mg Tablet PO (13:09)
--- NOTE | 2022-05-16 13:37 | P.CONIM_ITS ---
Providers/Reason For Consult Consulting Physician/Specialty*: Panda Herrera D.P.M. Reason for Consult*: Sore to the right foot Attending Physician: Jean Carlos Osborne MD Primary Care Provider: Kylie Stewart DO History of Present Illness History of Present Illness Kristine Barbosa is a 51 year old female admitted to the hospital service for bacteremia, multiple abscess sites. She is a wound at her right hip, right posterior knee and also complained of increased redness and swelling to the right foot. Past medical history includes right hip surgery with implant, right knee surgery with implant. Rheumatoid arthritis, hypothyroidism, chronic steroid use. She is status post incision and debridement of the left foot. I was consulted during her hospitalization for new onset of pustules on patient's right second and third toes. Review of Systems General: Reports: 10 or more systems reviewed and unremarkable except in HPI and below Const: Denies: fever(s) or chills Eyes: Denies: change in vision Card: Denies: chest pain or palpitations Resp: Denies: dyspnea or productive cough GI: Denies: abdominal pain, nausea or vomiting : Denies: flank pain Musc: Reports: extremity swelling, joint stiffness and deformity Skin/Breast: Reports: erythema, sores, changes in skin color, dry skin, nail changes and change in hair Neuro: Reports: numbness in extremities, sensory changes and difficulty walking Psych: Denies: suicidal ideation Endo: Denies: change in body appearance Malick/Lymph: Denies: tender lymph nodes Medications/Allergies Home Medications Medication Instructions Recorded Confirmed Last Taken Type tramadol 50 mg tablet 100 mg PO TID PRN Pain 03/14/20 05/09/22 05/09/22 04:00 History cyclobenzaprine 10 mg tablet 10 mg PO TID PRN muscle spasm #90 01/02/22 05/09/22 01/05/22 08:00 Rx tabs ibuprofen 800 mg tablet 800 mg PO Q4H PRN Pain 01/06/22 05/09/22 01/05/22 18:00 History prednisone 10 mg tablet 10 mg PO DAILY@12 01/06/22 05/09/22 05/08/22 History walker adjustable platform with #1 ea 01/14/22 05/09/22 Unknown Rx padded cuff duloxetine 30 mg capsule,delayed 30 mg PO DAILY #30 caps 05/01/22 05/09/22 04/30/22 Rx release (Cymbalta) pt only took one dos ascorbic acid (vitamin C) 500 mg 500 mg PO BEDTIME 05/09/22 05/09/22 05/08/22 History tablet (Vitamin C) cholecalciferol (vitamin D3) 25 25 mcg PO BEDTIME 05/09/22 05/09/22 05/08/22 History mcg (1,000 unit) capsule (Vitamin D3) diphenhydramine HCl 25 mg capsule 25 mg PO BEDTIME 05/09/22 05/09/22 05/08/22 History (Benadryl) ferrous sulfate 325 mg (65 mg 325 mg PO BEDTIME 05/09/22 05/09/22 05/08/22 History iron) tablet (iron) leflunomide 20 mg tablet 20 mg PO DAILY@12 05/09/22 05/09/22 05/08/22 History levothyroxine 175 mcg tablet 175 mcg PO QAM 05/09/22 05/09/22 05/08/22 History lisinopril 5 mg tablet 5 mg PO DAILY@12 05/09/22 05/09/22 05/08/22 History multivitamin 1 tab PO BEDTIME 05/09/22 05/09/22 05/08/22 History omeprazole 20 mg capsule,delayed 20 mg PO DAILY@12 05/09/22 05/09/22 05/08/22 History release tocilizumab 162 mg/0.9 mL 162 mg SUBCUT Q7D 05/09/22 05/09/22 05/02/22 History subcutaneous syringe (Actemra) pt states stopped zinc acetate 50 mg (zinc) capsule 50 mg PO BEDTIME 05/09/22 05/09/22 05/07/22 History Allergies Allergy/AdvReac Type Severity Reaction Status Date / Time Penicillins Allergy Severe ALGY-Anaphy Verified 05/01/22 09:20 laxis amoxicillin Allergy Unknown Verified 05/01/22 09:20 IV RA Meds Allergy ALGY-Anaphy Uncoded 05/01/22 09:20 laxis Current Medications Generic Name Dose Route Start Last Admin Trade Name Freq PRN Reason Stop Dose Admin Acetaminophen 1,000 mg 05/12/22 19:30 05/16/22 13:08 Acetaminophen 500 Mg Tablet PO 1,000 mg Q8H MICHELLE Administration Ascorbic Acid 500 mg 05/09/22 21:00 05/15/22 20:31 Ascorbic Acid 500 Mg Tablet PO Not Given BEDTIME [facility] Cyclobenzaprine HCl 10 mg 05/13/22 17:07 05/16/22 07:41 Cyclobenzaprine 10 Mg Tablet PO 10 mg TID PRN Administration MUSCLE SPASMS Diphenhydramine HCl 25 mg 05/09/22 21:00 05/15/22 21:15 Diphenhydramine 25 Mg Capsule PO 25 mg BEDTIME MICHELLE Administration Duloxetine HCl 30 mg 05/10/22 09:00 05/16/22 07:42 Duloxetine 30 Mg Capsule PO Not Given DAILY [facility] Enoxaparin Sodium 40 mg 05/13/22 09:00 05/16/22 07:41 Enoxaparin 40 Mg/0.4 Ml Syringe SUBCUT 40 mg Q24H MICHELLE Administration Ferrous Sulfate 325 mg 05/09/22 21:00 05/15/22 20:31 Ferrous Sulfate Ec 325 Mg Tablet PO Not Given BEDTIME [facility] Hydrocortisone Sodium Succinate 50 mg 05/14/22 18:00 05/16/22 10:08 Hydrocortisone 100 Mg/2 Ml Sdv IVP 50 mg BID MICHELLE Administration Cefepime HCl 2,000 mg/ Sodium 50 mls @ 100 mls/hr 05/12/22 14:00 05/16/22 13:08 Chloride IV 100 mls/hr Q8H MICHELLE Administration Protocol Ketorolac Tromethamine 15 mg 05/13/22 17:08 05/15/22 00:16 Ketorolac 30 Mg/Ml Inj IVP 05/18/22 17:07 15 mg Q8H PRN Administration MODERATE PAIN Levothyroxine Sodium 175 mcg 05/10/22 06:00 05/16/22 06:15 Levothyroxine 175 Mcg Tablet PO 175 mcg QAM MICHELLE Administration Multivitamins Therapeutic 1 tab 05/09/22 21:00 05/15/22 20:31 Multivitamin Therapeutic Tablet PO Not Given BEDTIME [facility] Oxycodone HCl 5 - 10 mg 05/12/22 19:18 05/15/22 15:37 Oxycodone 5 Mg Ir Tab/Cap PO 10 mg Q4H PRN Administration MODERATE TO SEVERE PAIN Pantoprazole Sodium 40 mg 05/10/22 12:00 05/16/22 13:[address] 40 Mg Tablet PO 40 mg DAILY@12 MICHELLE Administration Tramadol HCl 100 mg 05/09/22 16:40 05/16/22 07:41 Tramadol 50 Mg Tablet PO 100 mg TID PRN Administration Pain Vitamin D 1,000 unit 05/09/22 21:00 05/15/22 20:31 Cholecalciferol (Vitamin D3) 1,000 Unit Tablet PO Not Given BEDTIME MICHELLE Zinc Gluconate 50 mg 05/09/22 21:00 05/15/22 20:31 Zinc Gluconate 50 Mg Tablet PO Not Given BEDTIME MICHELLE PFSH Acute PFSH: Medical History (Updated 05/19/22 @ 07:43 by Panda Herrera DPM) Chronic steroid use Chronic use of steroids High risk medication use Hip pain, right Hypertension Hypothyroidism Immunization counseling Leukocytosis Rheumatoid arthritis Rheumatoid arthritis flare Seropositive rheumatoid arthritis of multiple sites Spondylolisthesis at L4-L5 level Surgical History History of foot surgery x5 right History of hand surgery 2right hand, 1 left hand History of hip replacement, total bilateral Status post incision and drainage Status post left knee replacement Family History Other CAD (coronary artery disease) Cancer Hyperlipidemia Hypertension Denies family history of Rheumatoid arthritis Diabetes Lupus Chronic kidney disease (CKD) Lung disease Stroke Social History Smoking and tobacco status: never smoked History of recent travel: No Vitals/I&O/Wt Last Vital Signs Temp 97.8 F 05/16/22 12:00 Pulse 76 05/16/22 12:00 Resp 16 05/16/22 12:00 BP 120/79 05/16/22 12:00 Pulse Ox 93 05/16/22 12:00 O2 Del Method 05/16/22 12:00 O2 Flow Rate 6 05/12/22 18:05 05/15/22 05/16/22 05/16/22 22:59 06:59 14:59 Intake Total 580 / 2420 1600 / 4020 175 / 175 Output Total 1000 / 1000 500 / 1500 Balance -420 / 1420 1100 / 2520 175 / 175 Weight last 48 hrs Weight 232 lb 8 oz Physical Exam Narrative: GENERAL: Patient is alert and oriented ?3 and in no acute distress. The following is a focused bilateral lower extremity exam. VASCULAR: Dorsalis pedis palpable +2 bilaterally, posterior tibial arteries +2. Capillary refill time less than 3 seconds to the distal hallux bilaterally. Calf is supple and nontender proximally and distally. Decreased pedal hair growth. Mild +1 pitting edema to lower extremities. NEUROLOGICAL: Protective sensation intact to light touch. DERMATOLOGICAL: Bullae to the dorsum of the right second and third toe were intact on exam and filled with white purulence. Upon deroofing the bullae at the dorsum of the right second and third toe had a viable base, limited to breakdown of skin, no deep structures exposed, there is no surrounding erythema or further purulent drainage. Incision at the left foot and aspiration site at left ankle are well-healing with intact sutures, no signs of dehiscence and no periincisional erythema, warmth or drainage. MUSCULOSKELETAL: No tenderness to bilateral lower extremity. Muscle strength 5 out of 5 in all 3 cardinal planes to the bilateral foot and ankle. Urinary Catheter Management: Frey: Cath Placed During This Visit: yes Reason for Continuing Indwelling Catheter: Required Immobilization for Trauma or Surgery or Anesthesia Urinary Catheter Date of Insertion: 05/09/22 Urinary Catheter Time of Insertion: 17:37 Data 05/16/22 05:00 05/16/22 05:00 Micro: Microbiology 05/12/22 16:57 Gram Stain - Final Hip - #1 Wound Culture - Final Staphylococcus aureus 05/12/22 17:45 Gram Stain - Final Knee - #1 Wound Culture - Final Staphylococcus aureus 05/12/22 17:45 Gram Stain - Final Knee - #1 Abscess Culture - Final Staphylococcus aureus 05/10/22 10:40 Anaerobic Culture - Preliminary Toe - Toe 05/10/22 10:40 Anaerobic Culture - Preliminary Leg - Left 05/10/22 10:40 Gram Stain - Final Other Source Anaerobic Culture - Preliminary Wound Culture - Final 05/14/22 00:25 MRSA Culture - Final Nose A&P Assessment and plan (1) Bullae: Plan Bullae to the dorsum of the right second and third toes are stable, after deroofing there is a viable base without acute signs of infection. Prescribed mupirocin ointment to be applied by nursing staff twice daily with Band-Aid covering. No clinical signs of infection to the bilateral foot and ankle that would attribute to patient's current hospitalization. Coding Level of Care Code Acute Hotel Front Office Manager for Chg Fwd Diagnoses Bullae R23.8
[2022-05-16] MEDS: oxyCODONE 5 mg IR Tab/Cap PO ×2 (14:31→20:33)
[2022-05-16] MEDS: mupirocin oint 22 gm 1 APPLIC TOPICAL (16:05)
--- NOTE | 2022-05-16 16:05 | P.PN_ITS ---
Subjective Subjective: No acute events overnight. States pain is well controlled. Has remained hemodynamically stable and afebrile. Complaining of new superficial ulcer infection in right second nonpalpable. Otherwise denies any nausea, vomiting, headache. Vitals/I&O/Wt Last Vital Signs Temp 97.8 F 05/16/22 12:00 Pulse 76 05/16/22 12:00 Resp 16 05/16/22 14:31 BP 120/79 05/16/22 12:00 Pulse Ox 93 05/16/22 12:00 O2 Del Method 05/16/22 12:00 O2 Flow Rate 6 05/12/22 18:05 05/16/22 05/16/22 05/16/22 06:59 14:59 22:59 Intake Total 1600 / 4020 175 / 175 Output Total 500 / 1500 Balance 1100 / 2520 175 / 175 Weight last 48 hrs Weight 105.46 kg Physical Exam Narrative: General: No acute distress, AO x3 HEENT: PERRLA, pupils bilaterally equal and reactive, pallors not present Chest: Normal vesicular breath sounds, no added sounds, equal good air entry bilaterally CVS: S1-S2 regular, no murmurs, no tachycardia, no gallops, no rubs Abdomen: Soft, nontender, no organomegaly, bowel sounds present Neuro: No focal deficits, no facial deformity, AO x3, power 5/5 in all limbs Extremities: surgical dressing present on the right hip with interrupted sutures underneath, mild tenderness, soft no erythema. Left knee posterior wound with packing in place. Urinary Catheter Management: Frey: Cath Placed During This Visit: yes Reason for Continuing Indwelling Catheter: Required Immobilization for Trauma or Surgery or Anesthesia Urinary Catheter Date of Insertion: 05/09/22 Urinary Catheter Time of Insertion: 17:37 Data 05/16/22 05:00 05/16/22 05:00 Micro: Microbiology 05/12/22 16:57 Gram Stain - Final Hip - #1 Wound Culture - Final Staphylococcus aureus 05/12/22 17:45 Gram Stain - Final Knee - #1 Wound Culture - Final Staphylococcus aureus 05/12/22 17:45 Gram Stain - Final Knee - #1 Abscess Culture - Final Staphylococcus aureus 05/10/22 10:40 Anaerobic Culture - Preliminary Toe - Toe 05/10/22 10:40 Anaerobic Culture - Preliminary Leg - Left 05/10/22 10:40 Gram Stain - Final Other Source Anaerobic Culture - Preliminary Wound Culture - Final 05/14/22 00:25 MRSA Culture - Final Nose A&P Assessment and plan (1) Staphylococcus aureus septicemia: (2) Infection of right prosthetic hip joint: (3) Osteomyelitis of metatarsal: (4) Status post left knee replacement: (5) Abscess of left knee: (6) Rheumatoid arthritis: (7) Immunocompromised due to corticosteroids: (8) Chronic use of steroids: Plan 51-year-old lady with rheumatoid arthritis on immunosuppressants with a complicated infectious history as noted above in HPI. To summarize patient has been suffering from abscesses involving the left foot, left knee and right hip since December 2021. Additionally she has evidence of staph aureus septicemia with positive blood cultures on admission. She had staff aureus septicemia in December 2021 was well. 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 Trying to transfer patient to a higher center for multiple joint surgeries. But so far unsuccessful. Dr. Horan is out of the state for now. Care discussed in detail he and Dr. Kyle carmona today. Plan for possible OR on right hip coming Thursday with Dr. Otto. Patient made aware. Will reconsult podiatry for new superficial skin infections which seems to be pus collections concerning for septic emboli's for wound care. Patient so far has remained afebrile. Hold off on blood cultures. We will discuss further with ID. Wound care, weightbearing as per orthopedic team. Continue with cefepime 2 g IV every [address] hourly[address] line in place. Blood culture negative. Maintain blood pressure over 65 mean arterial pressure. Continue to hold off on leflunomide and Actemra. Wean down hydrocortisone 50 mg IV daily. We will switch to oral home dose within next 24 hours. Continue with oxycodone and tramadol for pain. Plan to DC Frey as per weightbearing within next 24 hours. Monitor CBC, CMP daily. Goal blood pressure less than 140/90 mmHg. Full code. Regular diet. Protonix for PUD prophylaxis. Discharge planning: Dr. Otto in process to obtain resources to perform procedure in house as patient is not able to be transferred to a higher center. Discharge planning for now home with home health versus SNF. Patient will need to be on prolonged IV antibiotic course. Attestations Medical Necessity Statement*: Requires further hospitalization for management of MSSA bacteremia in setting of prosthetic joint infection of right hip, PGI of left knee and left foot osteomyelitis while definitive treatment plan is being made Time Spent in Patient Care: Greater than 35 minutes Coding Level of Care Code Acute [employer] Worker for g Fwd Diagnoses Staphylococcus aureus septicemia A41.01 Infection of right prosthetic hip joint T84.51XA Osteomyelitis of metatarsal M86.9 Status post left knee replacement Z96.652 Abscess of left knee L02.416 Rheumatoid arthritis M06.9 Immunocompromised due to corticosteroids D84.821; T38.0X5A; Z79.52 Chronic use of steroids
--- NOTE | 2022-05-16 17:04 | PM.PN ---
Subjective Subjective: Patient has difficulty ambulating. Attempting to work with PT but severe limitation secondary to pain. No plan for surgery on Thursday. Medications: Reviewed: Yes Medication Review Details: Generic Name Dose Route Start Last Admin Trade Name Lizzette PRN Reason Stop Dose Admin Acetaminophen 650 mg 05/09/22 16:24 05/10/22 04:31 Acetaminophen 32 5 Mg Tablet PO 650 mg Q6H PRN Administration Mild/Mod Pain Or Temp >/= 101 Ascorbic Acid 500 mg 05/09/22 21:00 05/09/22 19:48 Ascorbic Acid 50 0 Mg Tablet PO 500 mg BEDTIME MICHELLE Administration Diphenhydramine HC l 25 mg 05/09/22 21:00 05/09/22 19:48 Diphenhydramine 25 Mg Capsule PO 25 mg BEDTIME MICHELLE Administration Ferrous Sulfate 325 mg 05/09/22 21:00 05/09/22 19:48 Ferrous Sulfate Ec 325 Mg Tablet PO 325 mg BEDTIME MICHELLE Administration Hydromorphone HCl 0.5 mg 05/10/22 07:16 05/10/22 07:20 Hydromorphone 1 Mg/Ml Inj 1 Ml IVP 0.5 mg ONCE PRN Administration For preop pain/an xiety Imipenem/Cilastati n Sodium 500 100 mls @ 200 mls /hr 05/09/22 16:45 05/10/22 17:24 mg/ Sodium Chlor izzy IV 200 mls/hr Q6H MICHELLE Administration Protocol Vancomycin/PEG/NAD A/Lysine/Water 1,250 mg in 250 m ls @ 250 mls/hr 05/10/22 00:00 05/10/22 00:21 Vancocin IV Infused Q12H MICHELLE Infusion Sodium Chloride 1,000 mls @ 30 ml s/hr 05/10/22 07:30 05/10/22 09:20 Sodium Chloride 0.9% IV 05/11/22 07:29 30 mls/hr .Q24H MICHELLE Administration Sodium Chloride 1,000 mls @ 100 m ls/hr 05/10/22 11:00 05/10/22 15:57 Sodium Chloride 0.9% IV 05/11/22 10:59 100 mls/hr .Q10H MICHELLE Administration Levothyroxine Sodi um 175 mcg 05/10/22 06:00 05/10/22 05:43 Levothyroxine 17 5 Mcg Tablet PO 175 mcg QAM MICHELLE Administration Multivitamins Ther apeutic 1 tab 05/09/22 21:00 05/09/22 19:48 Multivitamin The rapeutic Tablet PO 1 tab BEDTIME MICHELLE Administration Ondansetron HCl 4 mg 05/09/22 16:23 05/09/22 20:52 Ondansetron 2 Mg /Ml Sdv 2 Ml IVP 4 mg Q6H PRN Administration NAUSEA AND VOMITI NG Pantoprazole Sodiu m 40 mg 05/10/22 12:00 05/10/22 15:[address] 40 Mg Tablet PO 40 mg DAILY@12 MICHELLE Administration Tramadol HCl 100 mg 05/09/22 16:40 05/10/22 03:38 Tramadol 50 Mg T ablet PO 100 mg TID PRN Administration Pain Vitamin D 1,000 unit 05/09/22 21:00 05/09/22 19:48 Cholecalciferol (Vitamin D3) 1,000 Unit Tablet PO 1,000 unit BEDTIME MICHELLE Administration Zinc Gluconate 50 mg 05/09/22 21:00 05/09/22 19:48 Zinc Gluconate 5 0 Mg Tablet PO 50 mg BEDTIME MICHELLE Administration Vitals/I&O/Wt Last Vital Signs Temp 98.2 F 05/16/22 16:00 Pulse 75 05/16/22 16:00 Resp 16 05/16/22 16:00 BP 111/71 05/16/22 16:00 Pulse Ox 97 05/16/22 16:00 O2 Del Method 05/16/22 16:00 O2 Flow Rate 6 05/12/22 18:05 05/16/22 05/16/22 05/16/22 06:59 14:59 22:59 Intake Total 1600 / 4020 225 / 225 Output Total 500 / 1500 Balance 1100 / 2520 225 / 225 Weight last 48 hrs Weight 105.46 kg Physical Exam Narrative: General: No acute distress, AO x3 HEENT: PERRLA, pupils bilaterally equal and reactive, pallors not present Chest: Normal vesicular breath sounds, no added sounds, equal good air entry bilaterally CVS: S1-S2 regular, no murmurs, no tachycardia, no gallops, no rubs Abdomen: Soft, nontender, no organomegaly, bowel sounds present Neuro: No focal deficits, no facial deformity, AO x3, power 5/5 in all limbs Extremities: surgical dressing present on the right hip with interrupted sutures underneath, mild tenderness, soft no erythema. Left knee posterior wound with packing in place. Urinary Catheter Management: Frey: Cath Placed During This Visit: yes Reason for Continuing Indwelling Catheter: Required Immobilization for Trauma or Surgery or Anesthesia Urinary Catheter Date of Insertion: 05/09/22 Urinary Catheter Time of Insertion: 17:37 Data 05/16/22 05:00 05/16/22 05:00 Micro: Microbiology 05/12/22 16:57 Gram Stain - Final Hip - #1 Wound Culture - Final Staphylococcus aureus/ MSSA 05/12/22 17:45 Gram Stain - Final Knee - #1 Wound Culture - Final Staphylococcus aureus/MSSA 05/12/22 17:45 Gram Stain - Final Knee - #1 Abscess Culture - Final Staphylococcus aureus/MSSA 05/10/22 10:40 Anaerobic Culture - Preliminary Toe - Toe 05/10/22 10:40 Anaerobic Culture - Preliminary Leg - Left 05/10/22 10:40 Gram Stain - Final Other Source Anaerobic Culture - Preliminary Wound Culture - Final Blood culture May 09, 2022: MSSA Blood culture May 12, 2022: No growth to date left foot metatarsal head cx: Pseudomonas aeruginosa s/t cefepime, cipro, aztreonam, zosyn, imipenem Prior cultures: Prior blood culture: January 06, 2022: MSSA Blood culture 01/08/2022: No growth to date Urine culture January 06, 2022: MSSA January 07, 2022: I&D culture from right hip drain : MSSA January 09, 2022: I&D from left foot: MSSA. outpatient left knee aspirate 03/03/22 : skin renée , not worked up further , labelled contaminant (on iv vancomycin at this time) Pathology from right hip abscess: acute inflammation, cocci in clusters A&P Assessment and plan (1) Infection of right prosthetic hip joint: (2) Osteomyelitis of metatarsal: (3) Status post left knee replacement: (4) Abscess of left knee: (5) Staphylococcus aureus septicemia: Plan Plan: -Presumed prosthetic joint infection of the right hip.? Agree with orthopedics that ideally patient would need a two-stage exchange with removal of existing components, placement of spacers and treatment with IV antibiotics over the next 6 to 8 weeks followed by staged reimplantation. 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 Attempted to transfer patient to [facility], multiple calls have been placed today to [facility], [facility], [facility], [facility], [facility], [facility] however there are no beds available at any of these facilities to transfer care of the patient. - Dr. Otto arranging logistics and materials to be able to perform procedure here on Thursday. -For now we will continue treatment with IV antibiotics while awaiting definitive surgical planning. -D/C cefepime. Will change treatment to Cefazolin 2g iv q8h for organism directed MSSA therapy. Ciprofloxacin 500mg BID for Pseudomonas from metatarsal head cx/ foot osteomyelitis. (Of note, previsouly from 12/2021, cx with MSSA). -If all existing hardware cannot be removed will likely add rifampin down the line and will need chronic suppression for usp. - blood cx clear as of 05/12 - PICC placed 05/14 Further recommendations to be based on final surgical plans. Attestations Medical Necessity Statement*: per hospitalist note, iv abx , surgery anticipated Coding Level of Care Code Acute Material Requirements Worker for Chg Fwd Diagnoses Infection of right prosthetic hip joint T84.51XA Osteomyelitis of metatarsal M86.9 Status post left knee replacement Z96.652 Abscess of left knee L02.416 Staphylococcus aureus septicemia A41.01
[2022-05-16] MEDS: ceFAZolin 2,000 MG in sodium chloride 0.9% (plus) 50 ML 100 MG IV (17:49)
[2022-05-16] MEDS: ciprofloxacin 500 mg Tablet PO (20:33)
[2022-05-16] MEDS: diphenhydrAMINE 25 mg Capsule PO (20:33)
--- NOTE | 2022-05-16 21:47 | PM.CONSULT ---
Providers/Reason For Consult Consulting Physician/Specialty*: Aliza Otto MD Reason for Consult*: Infected remote right total hip arthroplasty Requesting Physician: Dr. Priya Murphy Attending Physician: Jean Carlos Osborne MD Primary Care Provider: Kylie Stewart DO History of Present Illness History of Present Illness Kristine Barbosa is a 51 year old female who presented through the emergency department with complaints of increasing redness and swelling of her left foot initially. Subsequently, she was also found to have severe left knee and right hip pain. Patient has a history of rheumatoid arthritis. She had a history of total hip arthroplasty of the right hip with Dr. Venegas in 2004. She also had a left total hip arthroplasty approximately 2 years later. The patient was seen in November, with a right gluteal abscess. This was treated with insertion of a drain through interventional radiology as it did not appear at that time to connect to the hip joint. Additionally, the patient had a left total knee arthroplasty with Dr. Horan approximately 2 years ago. Reportedly, he saw her about 2 months ago and obtained a left knee aspiration due to pain and swelling which were reportedly negative. She states she has had ongoing pain in the right hip and left knee since that time, but that it worsened significantly approximately a week prior to admission. She also states on May 09, she had sergio pus coming from the back of her left knee and left calf with pain primarily in the knee and left foot but also in the right hip. Prior to my request for consultation, the patient had incision and drainage with Dr. Horan of both the left knee posteriorly and also the right hip. Reportedly, upon opening of the fascia, there was sergio purulent fluid in the hip. Dr. Horan did not feel that the posterior knee collection communicated with the joint. I was asked to see the patient in consultation as attempt was made to transfer the patient to an alternate higher level of care. Dr. Horan [place] out of country, and there were no beds available. Certainly, she has multiple comorbidities as well as a very complex orthopedic history. I saw the patient and advised her that I would address her hip as the prosthesis needs to come out. We will insert a temporary hip prosthesis with plans for either myself or Dr. Horan to reimplant after sufficient IV antibiotic. Dr. Horan will also need to further evaluate her knee upon his return as he placed this knee approximately 2 years ago. Review of Systems General: Reports: 10 or more systems reviewed and unremarkable except in HPI and below Const: Denies: fever(s), chills, body aches, change in appetite or diaphoresis Eyes: Denies: change in vision, blurry vision or photophobia ENMT: Reports: hoarseness; Denies: throat pain, enlarged tonsils, odynophagia, ear or mastoid pain, nasal discharge or nasal congestion Card: Denies: chest pain, palpitations, irregular heart rhythm, edema, swelling of feet/ankles, lightheadedness, pre-syncope, dyspnea on exertion, orthopnea or leg pain with exertion Resp: Denies: dyspnea, productive cough, non-productive cough, wheezing, stridor, pain on inspiration, change in phlegm color, hemoptysis or chest congestion GI: Denies: abdominal pain, nausea, vomiting, hematemesis, coffee ground emesis, dysphagia, heartburn, diarrhea, constipation, bloating, GI cramping, change in stool character, hematochezia or melena : Denies: flank pain, difficulty voiding, dysuria, urinary frequency, urinary urgency, urinary hesitancy or hematuria Musc: Reports: extremity pain, joint pain, joint swelling, joint stiffness, limited range of motion and deformity; Denies: neck pain, back pain, extremity swelling or joint warmth Skin/Breast: Reports: non-healing lesions and lesions; Denies: rash or pruritus Neuro: Denies: headache(s), numbness in extremities, weakness in extremities, sensory changes, difficulty walking, frequent falls, dizziness, vertigo, confusion, behavioral changes, Slurred speech present or seizure-like activity Psych: Denies: anxiety, depression, suicidal ideation or homicidal ideation Endo: Denies: polyuria, polydipsia, tired all the time, cold intolerance or hot flashes Malick/Lymph: Denies: easy bruising or easy bleeding Medications/Allergies Home Medications Medication Instructions Recorded Confirmed Last Taken Type tramadol 50 mg tablet 100 mg PO TID PRN Pain 03/14/20 05/09/22 05/09/22 04:00 History cyclobenzaprine 10 mg tablet 10 mg PO TID PRN muscle spasm #90 01/02/22 05/09/22 01/05/22 08:00 Rx tabs ibuprofen 800 mg tablet 800 mg PO Q4H PRN Pain 01/06/22 05/09/22 01/05/22 18:00 History prednisone 10 mg tablet 10 mg PO DAILY@12 01/06/22 05/09/22 05/08/22 History walker adjustable platform with #1 ea 01/14/22 05/09/22 Unknown Rx padded cuff duloxetine 30 mg capsule,delayed 30 mg PO DAILY #30 caps 05/01/22 05/09/22 04/30/22 Rx release (Cymbalta) pt only took one dos ascorbic acid (vitamin C) 500 mg 500 mg PO BEDTIME 05/09/22 05/09/22 05/08/22 History tablet (Vitamin C) cholecalciferol (vitamin D3) 25 25 mcg PO BEDTIME 05/09/22 05/09/22 05/08/22 History mcg (1,000 unit) capsule (Vitamin D3) diphenhydramine HCl 25 mg capsule 25 mg PO BEDTIME 05/09/22 05/09/22 05/08/22 History (Benadryl) ferrous sulfate 325 mg (65 mg 325 mg PO BEDTIME 05/09/22 05/09/22 05/08/22 History iron) tablet (iron) leflunomide 20 mg tablet 20 mg PO DAILY@12 05/09/22 05/09/22 05/08/22 History levothyroxine 175 mcg tablet 175 mcg PO QAM 05/09/22 05/09/22 05/08/22 History lisinopril 5 mg tablet 5 mg PO DAILY@12 05/09/22 05/09/22 05/08/22 History multivitamin 1 tab PO BEDTIME 05/09/22 05/09/22 05/08/22 History omeprazole 20 mg capsule,delayed 20 mg PO DAILY@12 05/09/22 05/09/22 05/08/22 History release tocilizumab 162 mg/0.9 mL 162 mg SUBCUT Q7D 05/09/22 05/09/22 05/02/22 History subcutaneous syringe (Actemra) pt states stopped zinc acetate 50 mg (zinc) capsule 50 mg PO BEDTIME 05/09/22 05/09/22 05/07/22 History Allergies Allergy/AdvReac Type Severity Reaction Status Date / Time Penicillins Allergy Severe ALGY-Anaphy Verified 05/01/22 09:20 laxis amoxicillin Allergy Unknown Verified 05/01/22 09:20 IV RA Meds Allergy ALGY-Anaphy Uncoded 05/01/22 09:20 laxis Current Medications Generic Name Dose Route Start Last Admin Trade Name Freq PRN Reason Stop Dose Admin Acetaminophen 1,000 mg 05/12/22 19:30 05/16/22 21:16 Acetaminophen 500 Mg Tablet PO 1,000 mg Q8H MICHELLE Administration Ascorbic Acid 500 mg 05/09/22 21:00 05/16/22 20:35 Ascorbic Acid 500 Mg Tablet PO Not Given BEDTIME MICHELLE Ciprofloxacin HCl 500 mg 05/16/22 21:00 05/16/22 20:33 Ciprofloxacin 500 Mg Tablet PO 500 mg BID@0900,2100 COUNTS INCLUDE 234 BEDS AT THE [facility] Administration Protocol Cyclobenzaprine HCl 10 mg 05/13/22 17:07 05/16/22 07:41 Cyclobenzaprine 10 Mg Tablet PO 10 mg TID PRN Administration MUSCLE SPASMS Diphenhydramine HCl 25 mg 05/09/22 21:00 05/16/22 20:33 Diphenhydramine 25 Mg Capsule PO 25 mg BEDTIME MICHELLE Administration Duloxetine HCl 30 mg 05/10/22 09:00 05/16/22 07:42 Duloxetine 30 Mg Capsule PO Not Given DAILY COUNTS INCLUDE 234 BEDS AT THE [facility] Enoxaparin Sodium 40 mg 05/13/22 09:00 05/16/22 07:41 Enoxaparin 40 Mg/0.4 Ml Syringe SUBCUT 40 mg Q24H MICHELLE Administration Ferrous Sulfate 325 mg 05/09/22 21:00 05/16/22 20:35 Ferrous Sulfate Ec 325 Mg Tablet PO Not Given BEDTIME COUNTS INCLUDE 234 BEDS AT THE [facility] Cefazolin Sodium 2,000 mg/ 50 mls @ 100 mls/hr 05/16/22 18:00 05/16/22 18:19 Sodium Chloride IV Infused Q8H MICHELLE Infusion Ketorolac Tromethamine 15 mg 05/13/22 17:08 05/15/22 00:16 Ketorolac 30 Mg/Ml Inj IVP 05/18/22 17:07 15 mg Q8H PRN Administration MODERATE PAIN Levothyroxine Sodium 175 mcg 05/10/22 06:00 05/16/22 06:15 Levothyroxine 175 Mcg Tablet PO 175 mcg QAM MICHELLE Administration Multivitamins Therapeutic 1 tab 05/09/22 21:00 12/16/22 20:35 Multivitamin Therapeutic Tablet PO Not Given BEDTIME MICHELLE Mupirocin 1 applic 05/16/22 14:00 05/16/22 16:05 Mupirocin Oint 22 Gm TOPICAL 1 applic DAILY MICHELLE Administration Oxycodone HCl 5 - 10 mg 05/12/22 19:18 05/16/22 20:33 Oxycodone 5 Mg Ir Tab/Cap PO 10 mg Q4H PRN Administration MODERATE TO SEVERE PAIN Pantoprazole Sodium 40 mg 05/10/22 12:00 05/16/22 13:[address] 40 Mg Tablet PO 40 mg DAILY@12 MICHELLE Administration Tramadol HCl 100 mg 05/09/22 16:40 05/16/22 07:41 Tramadol 50 Mg Tablet PO 100 mg TID PRN Administration Pain Vitamin D 1,000 unit 05/09/22 21:00 05/16/22 20:35 Cholecalciferol (Vitamin D3) 1,000 Unit Tablet PO Not Given BEDTIME MICHELLE Zinc Gluconate 50 mg 05/09/22 21:00 05/16/22 20:35 Zinc Gluconate 50 Mg Tablet PO Not Given BEDTIME COUNTS INCLUDE 234 BEDS AT THE [facility] Additional Medication Information Generic Name Dose Route Start Last Admin Trade Name Freq PRN Reason Stop Dose Admin Acetaminophen 650 mg 05/09/22 16:24 05/10/22 04:31 Acetaminophen 325 Mg Tablet PO 650 mg Q6H PRN Administration Mild/Mod Pain Or Temp >/= 101 Ascorbic Acid 500 mg 05/09/22 21:00 05/09/22 19:48 Ascorbic Acid 500 Mg Tablet PO 500 mg BEDTIME MICHELLE Administration Diphenhydramine HCl 25 mg 05/09/22 21:00 05/09/22 19:48 Diphenhydramine 25 Mg Capsule PO 25 mg BEDTIME MICHELLE Administration Ferrous Sulfate 325 mg 05/09/22 21:00 05/09/22 19:48 Ferrous Sulfate Ec 325 Mg Tablet PO 325 mg BEDTIME MICHELLE Administration Hydromorphone HCl 0.5 mg 05/10/22 07:16 05/10/22 07:20 Hydromorphone 1 Mg/Ml Inj 1 Ml IVP 0.5 mg ONCE PRN Administration For preop pain/anxiety Imipenem/Cilastatin Sodium 500 100 mls @ 200 mls/hr 05/09/22 16:45 05/10/22 17:24 mg/ Sodium Chloride IV 200 mls/hr Q6H MICHELLE Administration Protocol Vancomycin/PEG/NADA/Lysine/Water 1,250 mg in 250 mls @ 250 mls/hr 05/10/22 00:00 05/10/22 00:21 Vancocin IV Infused Q12H MICHELLE Infusion Sodium Chloride 1,000 mls @ 30 mls/hr 05/10/22 07:30 05/10/22 09:20 Sodium Chloride 0.9% IV 05/11/22 07:29 30 mls/hr .Q24H MICHELLE Administration Sodium Chloride 1,000 mls @ 100 mls/hr 05/10/22 11:00 05/10/22 15:57 Sodium Chloride 0.9% IV 05/11/22 10:59 100 mls/hr .Q10H MICHELLE Administration Levothyroxine Sodium 175 mcg 05/10/22 06:00 05/10/22 05:43 Levothyroxine 175 Mcg Tablet PO 175 mcg QAM MICHELLE Administration Multivitamins Therapeutic 1 tab 05/09/22 21:00 05/09/22 19:48 Multivitamin Therapeutic Tablet PO 1 tab BEDTIME MICHELLE Administration Ondansetron HCl 4 mg 05/09/22 16:23 05/09/22 20:52 Ondansetron 2 Mg/Ml Sdv 2 Ml IVP 4 mg Q6H PRN Administration NAUSEA AND VOMITING Pantoprazole Sodium 40 mg 05/10/22 12:00 05/10/22 15:[address] 40 Mg Tablet PO 40 mg DAILY@12 MICHELLE Administration Tramadol HCl 100 mg 05/09/22 16:40 05/10/22 03:38 Tramadol 50 Mg Tablet PO 100 mg TID PRN Administration Pain Vitamin D 1,000 unit 05/09/22 21:00 05/09/22 19:48 Cholecalciferol (Vitamin D3) 1,000 Unit Tablet PO 1,000 unit BEDTIME MICHELLE Administration Zinc Gluconate 50 mg 05/09/22 21:00 05/09/22 19:48 Zinc Gluconate 50 Mg Tablet PO 50 mg BEDTIME MICHELLE Administration PFSH Acute PFSH: Medical History (Updated 05/17/22 @ 21:02 by Aliza Otto MD) Chronic steroid use Chronic use of steroids High risk medication use Hip pain, right Hypertension Hypothyroidism Immunization counseling Leukocytosis Rheumatoid arthritis Rheumatoid arthritis flare Seropositive rheumatoid arthritis of multiple sites Spondylolisthesis at L4-L5 level Surgical History History of foot surgery x5 right History of hand surgery 2right hand, 1 left hand History of hip replacement, total bilateral Status post incision and drainage Status post left knee replacement Family History Other CAD (coronary artery disease) Cancer Hyperlipidemia Hypertension Denies family history of Rheumatoid arthritis Diabetes Lupus Chronic kidney disease (CKD) Lung disease Stroke Social History Smoking and tobacco status: never smoked History of recent travel: No Vitals/I&O/Wt Last Vital Signs Temp 98.4 F 05/16/22 20:00 Pulse 76 05/16/22 20:00 Resp 18 05/16/22 20:33 BP 123/80 05/16/22 20:00 Pulse Ox 98 05/16/22 20:00 O2 Del Method 05/16/22 16:00 O2 Flow Rate 6 05/12/22 18:05 05/16/22 05/16/22 05/16/22 06:59 14:59 22:59 Intake Total 1600 / 4020 225 / 225 50 / 275 Output Total 500 / 1500 1050 / 1050 Balance 1100 / 2520 225 / 225 -1000 / -775 Weight last 48 hrs Weight 232 lb 8 oz Physical Exam Const: COMMON NORMALS: no acute distress, patient oriented x3 and alert GENERAL APPEARANCE: cooperative and comfortable ORIENTATION/CONSCIOUSNESS: Yes awake HENMT: COMMON NORMALS: normocephalic and atraumatic HEAD & SCALP: normocephalic and atraumatic Eye: GENERAL EYE: appearance normal, both eyes and all related structures Chest: COMMONS NORMALS: normal inspection of the chest Resp: COMMON NORMALS: normal respiratory effort EFFORT & INSPECTION: Yes able to speak in complete sentences and Yes symmetric chest movement Extremity: RIGHT LOWER EXTREMITY: Yes hip joint (Dressing is dry and intact.) Right hip: Yes inspection (No significant erythema. Incision and sutures are intact.), Yes ROM (Not evaluated.) and Yes neurovascular exam (Intact distally.) LEFT LOWER EXTREMITY: Yes knee joint (Nurses are performing wet-to-dry's. Dressing is in place.) Neuro: COMMON NORMALS: patient oriented x3 SENSORIUM/ORIENTATION: Yes alert Psych: COMMON NORMALS: mental status grossly normal APPEARANCE: Yes grossly normal ATTITUDE: Yes calm and Yes engaged ATTENTION/CONCENTRATION: Yes attention grossly intact Skin: COMMON NORMALS: no rashes or lesions noted GENERAL SKIN EXAM: no rashes or lesions noted Urinary Catheter Management: Frey: Cath Placed During This Visit: yes Reason for Continuing Indwelling Catheter: Required Immobilization for Trauma or Surgery or Anesthesia Urinary Catheter Date of Insertion: 05/09/22 Urinary Catheter Time of Insertion: 17:37 Data 05/16/22 05:00 05/16/22 05:00 Micro: Microbiology 05/10/22 10:40 Anaerobic Culture - Preliminary Toe - Toe 05/10/22 10:40 Anaerobic Culture - Preliminary Leg - Left 05/10/22 10:40 Gram Stain - Final Other Source Anaerobic Culture - Preliminary Wound Culture - Final 05/12/22 16:57 Gram Stain - Final Hip - #1 Wound Culture - Final Staphylococcus aureus 05/12/22 17:45 Gram Stain - Final Knee - #1 Wound Culture - Final Staphylococcus aureus 05/12/22 17:45 Gram Stain - Final Knee - #1 Abscess Culture - Final Staphylococcus aureus A&P Assessment and plan (1) Infection of right prosthetic hip joint: I was asked to see the patient in consultation. She has previously underwent irrigation and debridement with Dr. Horan on May 12. He has left the country, and I was asked to assume care. After discussion with Dr. Murphy outlining her attempts at transfer to a higher level of care given the patient's significant comorbidities and complexities due to her immunocompromise status, chronic use of steroids, and multiple areas of infections. Patient also is morbidly obese with a BMI at 48.4%. This certainly adds to the complexity of the surgical intervention and subsequent postoperative treatment. I explained to the patient that I will remove her current implants and place temporary spacer. She is advised that she will require extensive antibiotic therapy as per Dr. Murphy postoperatively. We also discussed whether I will proceed with definitive care of her hip in the future or return her to Dr. Horan. Her index procedure on this hip was performed remotely approximately 15 to 20 years ago. She is scheduled for surgical intervention in the form of right hip arthrotomy with irrigation and debridement and placement of temporary hip spacer. Qualifiers: Encounter type: initial encounter Qualified Code(s): T84.51XA - Infection and inflammatory reaction due to internal right hip prosthesis, initial encounter (2) Status post left knee replacement: This knee is addressed by Dr. Horan with a posterior incision and drainage in the popliteal fossa. This will be addressed with IV antibiotics for further evaluation upon his return. (3) Morbid obesity with BMI of 45.0-49.9, adult: Consult Attestations Medical Necessity Statement: Severity complex problem and patient with multiple comorbidities. She will require extended hospitalization. Coding Level of Care Code Acute Card Scraper for [facility] Fwd Diagnoses Infection of right prosthetic hip joint T84.51XA Encounter type: initial encounter Status post left knee replacement Z96.652 Morbid obesity with BMI of 45.0-49.9, adult E66.01; Z68.42
[2022-05-17] VITALS (8 sets, daily range): BP systolic 108–133; BP diastolic 69–82; PULSE 68–80; RESP 14–18; TEMP 36.5–37.1; O2SAT 94–98
[2022-05-17] MEDS: ceFAZolin 2,000 MG in sodium chloride 0.9% (plus) 50 ML 100 MG IV ×3 (01:59→17:45)
[2022-05-17] MEDS: oxyCODONE 5 mg IR Tab/Cap PO ×2 (04:15→15:04)
[2022-05-17 04:32] LABS: Basophils # 0.1 10^3/uL (0.0-0.1); Basophils % 1.2 %; Eosinophils # 0.7 10^3/uL (0.0-0.8); Eosinophils % 6.8 %; Hematocrit 30.2 % (37.0-47.0); Hemoglobin 9.1 g/dL (11.5-15.3); Lymphocytes # 1.9 10^3/uL (0.8-4.8); Lymphocytes % 18.5 %; Mean Corpuscular HGB Conc 30.1 g/dL (30.0-36.0); Mean Corpuscular Hemoglobin 28.7 pg (28.0-34.0); Mean Corpuscular Volume 95.3 fl (81-99); Mean Platelet Volume 10.5 fL (7.4-10.4); Monocytes # 1.1 10^3/uL (0.2-0.9); Monocytes % 10.7 %; Neutrophils % 59.2 %; Nucleated Red Blood Cells % 0 %; Platelet Count 269 10^3/cmm (130-400); Red Blood Count 3.17 10^6/uL (4.1-5.3); Red Cell Distribution Width 16.8 % (12.1-15.1); White Blood Count 10.2 10^3/uL (4.0-10.0)
[2022-05-17 05:13] LABS: Alanine Aminotransferase 13 U/L (0-33); Albumin Level 1.7 g/dL (3.5-5.2); Alkaline Phosphatase 86 U/L (35-105); Aspartate Amino Transferase 20 U/L (0-32); Blood Urea Nitrogen 9 mg/dL (6-20); Calcium 8.1 mg/dL (8.5-10.5); Carbon Dioxide 19 mmol/L (22-29); Glomerular Filtration Rate 129.1 mL/min (90-130); Glucose 79 mg/dL (65-115); Total Bilirubin 0.2 mg/dL (0.15-1.2); Total Protein 4.7 g/dL (6.6-8.7)
[2022-05-17] MEDS: acetaminophen 500 mg Tablet 1000 MG PO ×3 (05:14→21:48)
[2022-05-17] MEDS: levothyroxine 175 mcg Tablet PO (05:15)
[2022-05-17 05:19] LABS: Potassium 3.2 mmol/L (3.5-5.1)
[2022-05-17] MEDS: TRAMadol 50 mg Tablet 100 MG PO (10:01)
[2022-05-17] MEDS: enoxaparin 40 mg/0.4 mL Syringe SUBCUT (10:01)
[2022-05-17] MEDS: predniSONE 10 mg Tablet PO (10:02)
[2022-05-17] MEDS: ciprofloxacin 500 mg Tablet PO ×2 (10:02→20:20)
[2022-05-17] MEDS: mupirocin oint 22 gm 1 APPLIC TOPICAL (10:03)
[2022-05-17] MEDS: cyclobenzaprine 10 mg Tablet PO (12:05)
[2022-05-17] MEDS: pantoprazole DR 40 mg Tablet PO (12:05)
[2022-05-17 13:32] LABS: Sodium 137 mmol/L (136-145)
[2022-05-17 13:33] LABS: Anion Gap 11.2 (5-19); Chloride 110 mmol/L (98-107); Osmolality Calculated 282 mOsm/kg (285-295)
[2022-05-17] MEDS: ketorolac 30 mg/mL INJ 15 MG IVP (15:03)
--- NOTE | 2022-05-17 15:53 | P.PN_ITS ---
Subjective Subjective: Patient has remained hemodynamically stable and afebrile. Working with physical therapy and sitting up at side of the bed. Plan for OR on Thursday for now. Patient is anxious and afraid about the surgery today. Medications: Reviewed: Yes Vitals/I&O/Wt Last Vital Signs Temp 98.7 F 05/17/22 15:44 Pulse 78 05/17/22 15:44 Resp 15 05/17/22 15:44 BP 124/79 05/17/22 15:44 Pulse Ox 94 05/17/22 15:44 O2 Del Method 05/17/22 15:44 O2 Flow Rate 6 05/12/22 18:05 05/17/22 05/17/22 05/17/22 06:59 14:59 22:59 Intake Total 50 / 425 240 / 240 Output Total 325 / 1375 Balance -275 / -950 240 / 240 Weight last 48 hrs Weight 123.921 kg Weight 105.46 kg Physical Exam Narrative: General: No acute distress, AO x3 HEENT: PERRLA, pupils bilaterally equal and reactive, pallors not present Chest: Normal vesicular breath sounds, no added sounds, equal good air entry bilaterally CVS: S1-S2 regular, no murmurs, no tachycardia, no gallops, no rubs Abdomen: Soft, nontender, no organomegaly, bowel sounds present Neuro: No focal deficits, no facial deformity, AO x3, power 5/5 in all limbs Extremities: surgical dressing present on the right hip with interrupted sutures underneath, mild tenderness, soft no erythema. Left knee posterior wound with packing in place. Urinary Catheter Management: Frey: Cath Placed During This Visit: yes Reason for Continuing Indwelling Catheter: Acute Urinary Retention or Obstruction Urinary Catheter Date of Insertion: 05/09/22 Urinary Catheter Time of Insertion: 17:37 Data 05/17/22 04:05 05/17/22 04:05 Micro: Microbiology 05/10/22 10:40 Gram Stain - Final Other Source Anaerobic Culture - Final Wound Culture - Final 05/10/22 10:40 Anaerobic Culture - Final Toe - Toe 05/10/22 10:40 Anaerobic Culture - Final Leg - Left 05/12/22 03:39 Blood Culture - Final Blood NO GROWTH AFTER 5 DAYS 05/12/22 03:37 Blood Culture - Final Blood NO GROWTH AFTER 5 DAYS A&P Assessment and plan (1) Staphylococcus aureus septicemia: (2) Infection of right prosthetic hip joint: (3) Osteomyelitis of metatarsal: (4) Status post left knee replacement: (5) Abscess of left knee: (6) Rheumatoid arthritis: (7) Immunocompromised due to corticosteroids: (8) Chronic use of steroids: Plan 51-year-old lady with rheumatoid arthritis on immunosuppressants with a complicated infectious history as noted above in HPI. To summarize patient has been suffering from abscesses involving the left foot, left knee and right hip since December 2021. Additionally she has evidence of staph aureus septicemia with positive blood cultures on admission. She had staff aureus septicemia in December 2021 was well. 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 Trying to transfer patient to a higher center for multiple joint surgeries. But so far unsuccessful. Dr. Horan is out of the state for now. Care discussed in detail he and Dr. Otto today. Plan for possible OR on right hip coming Thursday with Dr. Otto. Patient made aware. Will reconsult podiatry for new superficial skin infections which seems to be pus collections concerning for septic emboli's for wound care. Patient so far has remained afebrile. Hold off on blood cultures. We will discuss further with ID. Wound care, weightbearing as per orthopedic team. Continue with cefepime 2 g IV every [address] hourly[address] line in place. Continue oral ciprofloxacin. Blood culture negative. Maintain blood pressure over 65 mean arterial pressure. Continue to hold off on leflunomide and Actemra. Wean down hydrocortisone 50 mg IV daily. We will switch to oral home dose within next 24 hours. Continue with oxycodone and tramadol for pain. Plan to DC Frey as per weightbearing within next 24 hours. Monitor CBC, CMP daily. Goal blood pressure less than 140/90 mmHg. Full code. Regular diet. Protonix for PUD prophylaxis. Discharge planning: Dr. Otto in process to obtain resources to perform procedure in house as patient is not able to be transferred to a higher center. Discharge planning for now home with home health versus SNF. Patient will need to be on prolonged IV antibiotic course. Plan for the day: Continue with current IV antibiotics. Continue oral dose of ciprofloxacin. Appreciate orthopedic and ID recommendations. Physical therapy. Continue with home dose of prednisone 10 mg oral daily. Xanax 0.5 mg twice daily as needed. Protein shake for each meal. Attestations Medical Necessity Statement*: Requires further hospitalization for management of septic joint infection, staph bacteremia requiring further surgical interventions Time Spent in Patient Care: Greater than 35 minutes Coding Level of Care Code Acute Biometry Teacher for [facility] Fwd Diagnoses Staphylococcus aureus septicemia A41.01 Infection of right prosthetic hip joint T84.51XA Osteomyelitis of metatarsal M86.9 Status post left knee replacement Z96.652 Abscess of left knee L02.416 Rheumatoid arthritis M06.9 Immunocompromised due to corticosteroids D84.821; T38.0X5A; Z79.52 Chronic use of steroids
--- NOTE | 2022-05-17 18:00 | PM.PN ---
Subjective Subjective: ID progress Notes, noted new blisters over right foot as well, resolved, superficial Vitals/I&O/Wt Last Vital Signs Temp 98.7 F 05/17/22 15:44 Pulse 78 05/17/22 15:44 Resp 15 05/17/22 15:44 BP 124/79 05/17/22 15:44 Pulse Ox 94 05/17/22 15:44 O2 Del Method 05/17/22 15:44 O2 Flow Rate 6 05/12/22 18:05 05/17/22 05/17/22 05/17/22 06:59 14:59 22:59 Intake Total 50 / 425 290 / 290 Output Total 325 / 1375 Balance -275 / -950 290 / 290 Weight last 48 hrs Weight 123.921 kg Weight 105.46 kg Physical Exam Narrative: General: No acute distress, AO x3 HEENT: PERRLA, pupils bilaterally equal and reactive, pallors not present Chest: Normal vesicular breath sounds, no added sounds, equal good air entry bilaterally CVS: S1-S2 regular, no murmurs, no tachycardia, no gallops, no rubs Abdomen: Soft, nontender, no organomegaly, bowel sounds present Neuro: No focal deficits, no facial deformity, AO x3, power 5/5 in all limbs Extremities: surgical dressing present on the right hip with interrupted sutures underneath, mild tenderness, soft no erythema. Left knee posterior wound with packing in place. Urinary Catheter Management: Frey: Cath Placed During This Visit: yes Reason for Continuing Indwelling Catheter: Acute Urinary Retention or Obstruction Urinary Catheter Date of Insertion: 05/09/22 Urinary Catheter Time of Insertion: 17:37 Data 05/17/22 04:05 05/17/22 04:05 Micro: Microbiology 05/10/22 10:40 Gram Stain - Final Other Source Anaerobic Culture - Final Wound Culture - Final 05/10/22 10:40 Anaerobic Culture - Final Toe - Toe 05/10/22 10:40 Anaerobic Culture - Final Leg - Left 05/12/22 03:39 Blood Culture - Final Blood NO GROWTH AFTER 5 DAYS 05/12/22 03:37 Blood Culture - Final Blood NO GROWTH AFTER 5 DAYS A&P Assessment and plan (1) Infection of right prosthetic hip joint: (2) Osteomyelitis of metatarsal: (3) Status post left knee replacement: (4) Abscess of left knee: (5) Staphylococcus aureus septicemia: Plan Plan: -Presumed prosthetic joint infection of the right hip.? Agree with orthopedics that ideally patient would need a two-stage exchange with removal of existing components, placement of spacers and treatment with IV antibiotics over the next 6 to 8 weeks followed by staged reimplantation. 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 Attempted to transfer patient to [facility], multiple calls have been placed today to [facility], [facility], [facility], [facility], [facility], [facility] however there are no beds available at any of these facilities to transfer care of the patient. - Dr. Otto arranging logistics and materials to be able to perform procedure here on Thursday. -For now we will continue treatment with IV antibiotics while awaiting definitive surgical planning. -D/C cefepime. Will change treatment to Cefazolin 2g iv q8h for organism directed MSSA therapy. Ciprofloxacin 500mg BID for Pseudomonas from metatarsal head cx/ foot osteomyelitis. (Of note, previsouly from 12/2021, cx with MSSA). -If all existing hardware cannot be removed will likely add rifampin down the line and will need chronic suppression for shelter. - blood cx clear as of 05/12 - PICC placed 05/14 Further recommendations to be based on final surgical plans. Attestations Medical Necessity Statement*: per admitting Coding Level of Care Code Acute Reed Maker for g Fwd Diagnoses Infection of right prosthetic hip joint T84.51XA Osteomyelitis of metatarsal M86.9 Status post left knee replacement Z96.652 Abscess of left knee L02.416 Staphylococcus aureus septicemia A41.01
[2022-05-17] MEDS: diphenhydrAMINE 25 mg Capsule PO (20:20)
[2022-05-18] VITALS (7 sets, daily range): BP systolic 106–129; BP diastolic 67–78; PULSE 70–80; RESP 16–17; TEMP 36.4–36.8; O2SAT 96–98
[2022-05-18] MEDS: ceFAZolin 2,000 MG in sodium chloride 0.9% (plus) 50 ML 100 MG IV ×3 (01:59→18:38)
[2022-05-18 04:07] LABS: Basophils # 0.1 10^3/uL (0.0-0.1); Basophils % 0.8 %; Eosinophils # 0.6 10^3/uL (0.0-0.8); Eosinophils % 5.5 %; Hematocrit 27.9 % (37.0-47.0); Hemoglobin 8.8 g/dL (11.5-15.3); Lymphocytes # 1.9 10^3/uL (0.8-4.8); Lymphocytes % 17.8 %; Mean Corpuscular HGB Conc 31.5 g/dL (30.0-36.0); Mean Corpuscular Hemoglobin 28.6 pg (28.0-34.0); Mean Corpuscular Volume 90.6 fl (81-99); Mean Platelet Volume 10.6 fL (7.4-10.4); Monocytes # 1.3 10^3/uL (0.2-0.9); Monocytes % 11.9 %; Neutrophils # 6.62 10^3/uL (1.8-7.7); Neutrophils % 61.1 %; Nucleated Red Blood Cells % 0 %; Platelet Count 354 10^3/cmm (130-400); Red Blood Count 3.08 10^6/uL (4.1-5.3); Red Cell Distribution Width 16.9 % (12.1-15.1); White Blood Count 10.9 10^3/uL (4.0-10.0)
[2022-05-18 04:30] LABS: Alanine Aminotransferase 10 U/L (0-33); Albumin Level 2.2 g/dL (3.5-5.2); Alkaline Phosphatase 109 U/L (35-105); Anion Gap 10.7 (5-19); Aspartate Amino Transferase 18 U/L (0-32); Blood Urea Nitrogen 8 mg/dL (6-20); Calcium 8.1 mg/dL (8.5-10.5); Carbon Dioxide 23 mmol/L (22-29); Chloride 107 mmol/L (98-107); Globulin 2.6 g/dL (1.3-4.6); Glucose 95 mg/dL (65-115); Osmolality Calculated 282 mOsm/kg (285-295); Potassium 3.7 mmol/L (3.5-5.1); Sodium 137 mmol/L (136-145); Total Bilirubin 0.2 mg/dL (0.15-1.2); Total Protein 4.8 g/dL (6.6-8.7)
[2022-05-18] MEDS: acetaminophen 500 mg Tablet 1000 MG PO ×3 (06:27→22:11)
[2022-05-18] MEDS: levothyroxine 175 mcg Tablet PO (06:27)
--- NOTE | 2022-05-18 09:30 | PC.SOCIAL ---
Imm updated Imm updated with patient at bedside. Copy of page 2 provided. Patient verbalized understanding. Copy in chart initialed, dated, and timed
[2022-05-18] MEDS: predniSONE 10 mg Tablet PO (09:58)
[2022-05-18] MEDS: ciprofloxacin 500 mg Tablet PO ×2 (09:58→20:17)
[2022-05-18] MEDS: enoxaparin 40 mg/0.4 mL Syringe SUBCUT (09:58)
[2022-05-18] MEDS: TRAMadol 50 mg Tablet 100 MG PO ×2 (10:02→20:19)
[2022-05-18] MEDS: mupirocin oint 22 gm 1 APPLIC TOPICAL (10:05)
[2022-05-18] MEDS: oxyCODONE 5 mg IR Tab/Cap PO (12:11)
[2022-05-18] MEDS: ketorolac 30 mg/mL INJ 15 MG IVP (12:11)
[2022-05-18] MEDS: pantoprazole DR 40 mg Tablet PO (12:47)
--- NOTE | 2022-05-18 16:56 | PM.PN ---
Subjective Subjective: ID progress Notes, no new complaints awaiting surgery on Thursday with Dr. Otto working with resistance band to exrcise left leg leukocytosis resolved hemodynamically stable Medications: Reviewed: Yes Medication Review Details: Generic Name Dose Route Start Last Admin Trade Name Earleq PRN Reason Stop Dose Admin Acetaminophen 650 mg 05/09/22 16:24 05/10/22 04:31 Acetaminophen 32 5 Mg Tablet PO 650 mg Q6H PRN Administration Mild/Mod Pain Or Temp >/= 101 Ascorbic Acid 500 mg 05/09/22 21:00 05/09/22 19:48 Ascorbic Acid 50 0 Mg Tablet PO 500 mg BEDTIME MICHELLE Administration Diphenhydramine HC l 25 mg 05/09/22 21:00 05/09/22 19:48 Diphenhydramine 25 Mg Capsule PO 25 mg BEDTIME MICHELLE Administration Ferrous Sulfate 325 mg 05/09/22 21:00 05/09/22 19:48 Ferrous Sulfate Ec 325 Mg Tablet PO 325 mg BEDTIME MICHELLE Administration Hydromorphone HCl 0.5 mg 05/10/22 07:16 05/10/22 07:20 Hydromorphone 1 Mg/Ml Inj 1 Ml IVP 0.5 mg ONCE PRN Administration For preop pain/an xiety Imipenem/Cilastati n Sodium 500 100 mls @ 200 mls /hr 05/09/22 16:45 05/10/22 17:24 mg/ Sodium Chlor izzy IV 200 mls/hr Q6H MICHELLE Administration Protocol Vancomycin/PEG/NAD A/Lysine/Water 1,250 mg in 250 m ls @ 250 mls/hr 05/10/22 00:00 05/10/22 00:21 Vancocin IV Infused Q12H MICHELLE Infusion Sodium Chloride 1,000 mls @ 30 ml s/hr 05/10/22 07:30 05/10/22 09:20 Sodium Chloride 0.9% IV 05/11/22 07:29 30 mls/hr .Q24H MICHELLE Administration Sodium Chloride 1,000 mls @ 100 m ls/hr 05/10/22 11:00 05/10/22 15:57 Sodium Chloride 0.9% IV 05/11/22 10:59 100 mls/hr .Q10H MICHELLE Administration Levothyroxine Sodi um 175 mcg 05/10/22 06:00 05/10/22 05:43 Levothyroxine 17 5 Mcg Tablet PO 175 mcg QAM MICHELLE Administration Multivitamins Ther apeutic 1 tab 05/09/22 21:00 05/09/22 19:48 Multivitamin The rapeutic Tablet PO 1 tab BEDTIME MICHELLE Administration Ondansetron HCl 4 mg 05/09/22 16:23 05/09/22 20:52 Ondansetron 2 Mg /Ml Sdv 2 Ml IVP 4 mg Q6H PRN Administration NAUSEA AND VOMITI NG Pantoprazole Sodiu m 40 mg 05/10/22 12:00 05/10/22 15:[address] 40 Mg Tablet PO 40 mg DAILY@12 MICHELLE Administration Tramadol HCl 100 mg 05/09/22 16:40 05/10/22 03:38 Tramadol 50 Mg T ablet PO 100 mg TID PRN Administration Pain Vitamin D 1,000 unit 05/09/22 21:00 05/09/22 19:48 Cholecalciferol (Vitamin D3) 1,000 Unit Tablet PO 1,000 unit BEDTIME MICHELLE Administration Zinc Gluconate 50 mg 05/09/22 21:00 05/09/22 19:48 Zinc Gluconate 5 0 Mg Tablet PO 50 mg BEDTIME MICHELLE Administration Vitals/I&O/Wt Last Vital Signs Temp 97.6 F 05/18/22 16:45 Pulse 80 05/18/22 16:45 Resp 16 05/18/22 16:45 BP 119/76 05/18/22 16:45 Pulse Ox 96 05/18/22 16:45 O2 Del Method 05/18/22 15:45 O2 Flow Rate 6 05/12/22 18:05 05/18/22 05/18/22 05/18/22 06:59 14:59 22:59 Intake Total 50 / 870 290 / 290 Output Total 550 / 1950 1200 / 1200 Balance -500 / -1080 290 / 290 -1200 / -910 Weight last 48 hrs Weight 123.921 kg Physical Exam Narrative: General: No acute distress, AO x3 HEENT: PERRLA, pupils bilaterally equal and reactive, pallors not present Chest: Normal vesicular breath sounds, no added sounds, equal good air entry bilaterally CVS: S1-S2 regular, no murmurs, no tachycardia, no gallops, no rubs Abdomen: Soft, nontender, no organomegaly, bowel sounds present Neuro: No focal deficits, no facial deformity, AO x3, power 5/5 in all limbs Extremities: surgical dressing present on the right hip with interrupted sutures underneath, mild tenderness, soft no erythema. Left knee posterior wound with packing in place. Urinary Catheter Management: Frey: Cath Placed During This Visit: yes Reason for Continuing Indwelling Catheter: Acute Urinary Retention or Obstruction Urinary Catheter Date of Insertion: 05/09/22 Urinary Catheter Time of Insertion: 17:37 Data 05/18/22 03:48 05/18/22 03:48 Micro: Microbiology 05/10/22 10:40 Gram Stain - Final Other Source Anaerobic Culture - Final Wound Culture - Final 05/10/22 10:40 Anaerobic Culture - Final Toe - Toe 05/10/22 10:40 Anaerobic Culture - Final Leg - Left Blood culture May 09, 2022: MSSA Blood culture May 12, 2022: No growth to date left foot metatarsal head cx: Pseudomonas aeruginosa s/t cefepime, cipro, aztreonam, zosyn, imipenem Prior cultures: Prior blood culture: January 06, 2022: MSSA Blood culture 01/08/2022: No growth to date Urine culture January 06, 2022: MSSA January 07, 2022: I&D culture from right hip drain : MSSA January 09, 2022: I&D from left foot: MSSA. outpatient left knee aspirate 03/03/22 : skin renée , not worked up further , labelled contaminant (on iv vancomycin at this time) Pathology from right hip abscess: acute inflammation, cocci in clusters A&P Assessment and plan (1) Infection of right prosthetic hip joint: Qualifiers: Encounter type: initial encounter Qualified Code(s): T84.51XA - Infection and inflammatory reaction due to internal right hip prosthesis, initial encounter (2) Osteomyelitis of metatarsal: (3) Status post left knee replacement: (4) Abscess of left knee: (5) Staphylococcus aureus septicemia: Plan -Presumed prosthetic joint infection of the right hip.? Agree with orthopedics that patient needs a two-stage exchange with removal of existing components, placement of spacers and treatment with IV antibiotics over the next 6 to 8 weeks followed by staged reimplantation. 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 CX showing MSSA ? Attempted to transfer patient to [facility], multiple calls have been placed today to [facility], [facility], [facility], [facility], [facility] however there are no beds available at any of these facilities to transfer care of the patient. - Dr. Otto arranging logistics and materials to be able to perform procedure here on Thursday. -For now we will continue treatment with IV antibiotics while awaiting definitive surgical planning. -Continue Cefazolin 2g iv q8h for organism directed MSSA therapy. Ciprofloxacin 500mg BID for Pseudomonas from metatarsal head cx/ foot osteomyelitis. (Of note, previsouly from 12/2021, cx with MSSA). -If all existing hardware cannot be removed (knee likely to be retained for now) will likely add rifampin down the line and will need chronic suppression for terminal carman. - blood cx clear as of 05/12 - PICC placed 05/14 Further recommendations to be based on intra op findings and surgical procedure which is planned for Thursday Attestations Medical Necessity Statement*: per attending Coding Level of Care Code Acute Rehabilitation Clerk for Paolo Garcias Diagnoses Infection of right prosthetic hip joint T84.51XA Encounter type: initial encounter Osteomyelitis of metatarsal M86.9 Status post left knee replacement Z96.652 Abscess of left knee L02.416 Staphylococcus aureus septicemia A41.01
--- NOTE | 2022-05-18 18:01 | PM.PN ---
Subjective Subjective: No acute events overnight. Seen with spouse at bedside. Patient denies any nausea vomiting, headache. States she is doing better. Not anxious today. Complaining of slight shooting pain with movement at the PICC line site specially after physical therapy. Otherwise has remained hemodynamically stable and afebrile. Medications: Reviewed: Yes Vitals/I&O/Wt Last Vital Signs Temp 97.6 F 05/18/22 16:45 Pulse 80 05/18/22 16:45 Resp 16 05/18/22 16:45 BP 119/76 05/18/22 16:45 Pulse Ox 96 05/18/22 16:45 O2 Del Method 05/18/22 15:45 O2 Flow Rate 6 05/12/22 18:05 05/18/22 05/18/22 05/18/22 06:59 14:59 22:59 Intake Total 50 / 870 290 / 290 Output Total 550 / 1950 1200 / 1200 Balance -500 / -1080 290 / 290 -1200 / -910 Weight last 48 hrs Weight 123.921 kg Physical Exam Narrative: General: No acute distress, AO x3 HEENT: PERRLA, pupils bilaterally equal and reactive, pallors not present Chest: Normal vesicular breath sounds, no added sounds, equal good air entry bilaterally CVS: S1-S2 regular, no murmurs, no tachycardia, no gallops, no rubs Abdomen: Soft, nontender, no organomegaly, bowel sounds present Neuro: No focal deficits, no facial deformity, AO x3, power 5/5 in all limbs Extremities: surgical dressing present on the right hip with interrupted sutures underneath, mild tenderness, soft no erythema. Left knee posterior wound with packing in place. Urinary Catheter Management: Frey: Cath Placed During This Visit: yes Reason for Continuing Indwelling Catheter: Acute Urinary Retention or Obstruction Urinary Catheter Date of Insertion: 05/09/22 Urinary Catheter Time of Insertion: 17:37 Data 05/18/22 03:48 05/18/22 03:48 Micro: Microbiology 05/10/22 10:40 Gram Stain - Final Other Source Anaerobic Culture - Final Wound Culture - Final 05/10/22 10:40 Anaerobic Culture - Final Toe - Toe 05/10/22 10:40 Anaerobic Culture - Final Leg - Left A&P Assessment and plan (1) Staphylococcus aureus septicemia: (2) Infection of right prosthetic hip joint: Qualifiers: Encounter type: initial encounter Qualified Code(s): T84.51XA - Infection and inflammatory reaction due to internal right hip prosthesis, initial encounter (3) Osteomyelitis of metatarsal: (4) Status post left knee replacement: (5) Abscess of left knee: (6) Rheumatoid arthritis: (7) Immunocompromised due to corticosteroids: (8) Chronic use of steroids: Plan 51-year-old lady with rheumatoid arthritis on immunosuppressants with a complicated infectious history as noted above in HPI. To summarize patient has been suffering from abscesses involving the left foot, left knee and right hip since December 2021. Additionally she has evidence of staph aureus septicemia with positive blood cultures on admission. She had staff aureus septicemia in December 2021 was well. 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 Trying to transfer patient to a higher center for multiple joint surgeries. But so far unsuccessful. Dr. Horan [place] out of the state for now. Care discussed in detail he and Dr. Otto today. Plan for possible OR on right hip coming Thursday with Dr. Otto. Patient made aware. Will reconsult podiatry for new superficial skin infections which seems to be pus collections concerning for septic emboli's for wound care. Patient so far has remained afebrile. Hold off on blood cultures. We will discuss further with ID. Wound care, weightbearing as per orthopedic team. Continue with cefazolin 2 g IV every [address] line in place. Continue oral ciprofloxacin. Blood culture negative. Maintain blood pressure over 65 mean arterial pressure. Continue to hold off on leflunomide and Actemra. Wean down hydrocortisone 50 mg IV daily. We will switch to oral home dose within next 24 hours. Continue with oxycodone and tramadol for pain. Plan to DC Frey as per weightbearing within next 24 hours. Monitor CBC, CMP daily. Goal blood pressure less than 140/90 mmHg. Full code. Regular diet. Protonix for PUD prophylaxis. Discharge planning: Dr. Otto in process to obtain resources to perform procedure in house as patient is not able to be transferred to a higher center. Discharge planning for now home with home health versus SNF. Patient will need to be on prolonged IV antibiotic course. Plan for the day: Continued physical therapy. Plan for or on Thursday. Chest x-ray confirmed placement of PICC line to rule out dislodgment during physical therapy. Monitor CBC, CMP daily. Continue with cefazolin 2 g IV every 8 hourly and ciprofloxacin orally. Appreciate ID and orthopedic recommendations. Continue with protein shakes with each meal. Attestations Medical Necessity Statement*: Requires further hospitalization for management of MSSA bacteremia, P JI Time Spent in Patient Care: 16 - 35 minutes Coding Level of Care Code Acute Environmental Remediation Engineer for [facility] Fwd Diagnoses Staphylococcus aureus septicemia A41.01 Infection of right prosthetic hip joint T84.51XA Encounter type: initial encounter Osteomyelitis of metatarsal M86.9 Status post left knee replacement Z96.652 Abscess of left knee L02.416 Rheumatoid arthritis M06.9 Immunocompromised due to corticosteroids D84.821; T38.0X5A; Z79.52 Chronic use of steroids
--- NOTE | 2022-05-18 18:16 | XRR_ITS ---
PROCEDURE INFORMATION: Exam: XR Chest Exam date and time: 05/18/2022 7:27 PM Age: 51 years old Clinical indication: Device placement; Picc; Additional info: R/O picc line dislodgement TECHNIQUE: Imaging protocol: Radiologic exam of the chest. Views: 1 view. COMPARISON: CR XR chest 1V portable [id number] 05/14/2022 2:47 PM FINDINGS: Tubes, catheters and devices: There is a right subclavian PICC line with tip in the superior vena cava. Lungs: Unremarkable. No consolidation. Unchanged coarsening of the interstitial markings. Pleural spaces: Unremarkable. No pleural effusion. No pneumothorax. Heart/Mediastinum: Unremarkable. No cardiomegaly. Bones/joints: No acute abnormality. XR/XR chest 1V portable [id number] IMPRESSION: 1. There is a right subclavian PICC line with tip in the superior vena cava. 2. No acute findings.
[2022-05-18] MEDS: cyclobenzaprine 10 mg Tablet PO (20:17)
[2022-05-18] MEDS: diphenhydrAMINE 25 mg Capsule PO (20:18)
[2022-05-19] VITALS (7 sets, daily range): BP systolic 106–122; BP diastolic 69–77; PULSE 71–107; RESP 14–18; TEMP 36.6–36.9; O2SAT 92–98
[2022-05-19] MEDS: ceFAZolin 2,000 MG in sodium chloride 0.9% (plus) 50 ML 100 MG IV ×3 (02:04→17:41)
--- NOTE | 2022-05-19 04:37 | PC.NURSE ---
clip on cath bag was left unclamped. big puddle on the floor.
[2022-05-19] MEDS: acetaminophen 500 mg Tablet 1000 MG PO ×3 (05:03→21:02)
[2022-05-19] MEDS: levothyroxine 175 mcg Tablet PO (05:03)
[2022-05-19] MEDS: enoxaparin 40 mg/0.4 mL Syringe SUBCUT (07:40)
[2022-05-19] MEDS: TRAMadol 50 mg Tablet 100 MG PO ×2 (07:40→19:51)
[2022-05-19] MEDS: ciprofloxacin 500 mg Tablet PO ×2 (07:41→21:03)
[2022-05-19] MEDS: predniSONE 10 mg Tablet PO (07:41)
[2022-05-19] MEDS: mupirocin oint 22 gm 1 APPLIC TOPICAL (07:42)
[2022-05-19] MEDS: pantoprazole DR 40 mg Tablet PO (10:58)
[2022-05-19] MEDS: oxyCODONE 5 mg IR Tab/Cap PO (11:07)
--- NOTE | 2022-05-19 13:44 | P.PN_ITS ---
Subjective Subjective: Patient is seen in her room, and she is ready for surgery tomorrow. Questions are answered and the patient seems to understand the plans for the procedure. She has longer-term questions regarding antibiotic therapies as well as further treatment for her knee which will be under the care of Dr. Yennifer anaya. Medications: Reviewed: Yes Vitals/I&O/Wt Last Vital Signs Temp 98.2 F 05/19/22 12:00 Pulse 76 05/19/22 12:00 Resp 16 05/19/22 12:00 BP 109/70 05/19/22 12:00 Pulse Ox 95 05/19/22 12:00 O2 Del Method 05/19/22 12:00 O2 Flow Rate 6 05/12/22 18:05 05/18/22 05/19/22 05/19/22 22:59 06:59 14:59 Intake Total 650 / 940 50 / 990 410 / 410 Output Total 1200 / 1200 550 / 1750 1200 / 1200 Balance -550 / -260 -500 / -760 -790 / -790 Physical Exam Const: COMMON NORMALS: no acute distress, patient oriented x3 and alert GENERAL APPEARANCE: cooperative and comfortable ORIENTATION/CONSCIOUSNESS: Yes awake HENMT: COMMON NORMALS: normocephalic and atraumatic HEAD & SCALP: normocephalic and atraumatic Eye: GENERAL EYE: appearance normal, both eyes and all related structures Chest: COMMONS NORMALS: normal inspection of the chest Resp: COMMON NORMALS: normal respiratory effort EFFORT & INSPECTION: Yes able to speak in complete sentences and Yes symmetric chest movement Extremity: NARRATIVE EXTREMITY EXAM: Patient continues to get wet-to-dry dressings to the left knee posteriorly. She is also having dressing changes over the right hip. Plans are made for removal of her prosthesis from her hip tomorrow with temporary prosthesis to be placed. Neuro: COMMON NORMALS: patient oriented x3 SENSORIUM/ORIENTATION: Yes alert Psych: COMMON NORMALS: mental status grossly normal APPEARANCE: Yes grossly normal ATTITUDE: Yes calm and Yes engaged ATTENTION/CONCENTRATION: Yes attention grossly intact Skin: COMMON NORMALS: no rashes or lesions noted GENERAL SKIN EXAM: no rashes or lesions noted Urinary Catheter Management: Frey: Cath Placed During This Visit: yes Reason for Continuing Indwelling Catheter: Required Immobilization for Trauma or Surgery or Anesthesia Urinary Catheter Date of Insertion: 12/09/22 Urinary Catheter Time of Insertion: 17:37 Data 05/18/22 03:48 05/18/22 03:48 A&P Assessment and plan (1) Infection of right prosthetic hip joint: Plans have been made and consents have been signed for surgical intervention tomorrow. The patient knows and understands that the plan is for removal of her infected right total hip arthroplasty. We will place a temporary spacer and pictures of this are shown to the patient so she has better understanding of the plan. She also understands a Dr. Horan will be treating her knee issues. At the time he took her to surgery, he did not feel that there was infection involving the knee. This will be further evaluated upon his return. She is advised that until that knee is further addressed, no definitive implantation can be made in the hip short of the temporary cement spacer. She seems to understand the surgical plan and agrees. Qualifiers: Encounter type: initial encounter Qualified Code(s): T84.51XA - Infection and inflammatory reaction due to internal right hip prosthesis, initial encounter (2) Immunocompromised due to corticosteroids: (3) Morbid obesity with BMI of 45.0-49.9, adult: Attestations Medical Necessity Statement*: Ongoing care for infected remote right total hip arthroplasty. Coding Level of Care Code Acute Analytical Technician for Paolo Garcias Diagnoses Infection of right prosthetic hip joint T84.51XA Encounter type: initial encounter Immunocompromised due to corticosteroids D84.821; T38.0X5A; Z79.52 Morbid obesity with BMI of 45.0-49.9, adult E66.01; Z68.42
--- NOTE | 2022-05-19 15:34 | P.PN_ITS ---
Subjective Subjective: She states overall doing okay. She has made plans with orthopedics to proceed with surgery tomorrow for hardware removal in the right hip due to infection, placement of antibiotic spacer. She is adamant that she will not go to care home facility after discharge. She lives at home with her that they have built a ramp as well, and will work however they can for her to be able to return home. He also had experience with administration of IV antibiotics and anticipated that he should not have a problem with continuing those at home. Medications: Reviewed: Yes Vitals/I&O/Wt Last Vital Signs Temp 98.2 F 05/19/22 12:00 Pulse 76 05/19/22 12:00 Resp 16 05/19/22 12:00 BP 109/70 05/19/22 12:00 Pulse Ox 95 05/19/22 12:00 O2 Del Method 05/19/22 12:00 O2 Flow Rate 6 05/12/22 18:05 05/19/22 05/19/22 05/19/22 06:59 14:59 22:59 Intake Total 50 / 990 410 / 410 Output Total 550 / 1750 1200 / 1200 Balance -500 / -760 -790 / -790 Physical Exam Narrative: Spouse at bedside. Const: COMMON NORMALS: patient oriented x3 and alert GENERAL APPEARANCE: cooperative ORIENTATION/CONSCIOUSNESS: Yes awake HENMT: COMMON NORMALS: oropharynx normal Neck/C-Spine: COMMON NORMALS: no JVD Resp: COMMON NORMALS: normal respiratory effort and clear to auscultation bilaterally AUSCULTATION: clear to auscultation bilaterally Cardio: COMMON NORMALS: no JVD, regular rhythm, S1 normal heart sound present, S2 normal heart sound present and No murmurs present (Cardio) RHYTHM: regular rhythm HEART SOUNDS: S1 normal heart sound present and S2 normal heart sound present GI: COMMON NORMALS: Normal to inspection, nondistended, normoactive bowel sounds present, Soft to palpation and non-tender PALPATION: Yes Soft to palpation Extremity: COMMON NORMALS: no joint enlargement and no pedal edema OTHER: Right hip with swelling, faint erythema, wound drainage. Dressing wrapped over L knee. L foot dressing intact, no strikethrough or drainage. Neuro: COMMON NORMALS: patient oriented x3 and moves all extremities SENSORIUM/ORIENTATION: Yes alert Skin: COMMON NORMALS: no rashes or lesions noted GENERAL SKIN EXAM: no rashes or lesions noted Urinary Catheter Management: Frey: Cath Placed During This Visit: yes Reason for Continuing Indwelling Catheter: Required Immobilization for Trauma or Surgery or Anesthesia Urinary Catheter Date of Insertion: 05/09/22 Urinary Catheter Time of Insertion: 17:37 Data 05/18/22 03:48 05/18/22 03:48 A&P Assessment and plan (1) Infection of right prosthetic hip joint: With plans for hardware explantation, antibiotic spacer placement tomorrow. Hold Lovenox after today's dose. Transiently increased prednisone dose to 15 mg. Continue IV antibiotic with cefazolin and ciprofloxacin. Discussed also with infectious disease specialist, appreciate recommendations. Continue with oxycodone and tramadol for pain. Qualifiers: Encounter type: initial encounter Qualified Code(s): T84.51XA - Infection and inflammatory reaction due to internal right hip prosthesis, initial encounter (2) Staphylococcus aureus septicemia: Continue antibiotics as above. No further growth on repeat blood culture 05/12. (3) Abscess of left knee: Continue packing, IV antibiotic after discharge and follow-up with orthopedics in office. (4) Osteomyelitis of metatarsal: Had surgery 05/13. Suture removal at 2 weeks. Follow-up with podiatry, or if still here to be removed in the hospital. (5) Status post left knee replacement: (6) Rheumatoid arthritis: (7) Immunocompromised due to corticosteroids: (8) Chronic use of steroids: Plan 51-year-old lady with rheumatoid arthritis on immunosuppressants with a complicated infectious history as noted above in HPI. To summarize patient has been suffering from abscesses involving the left foot, left knee and right hip since December 2021. Additionally she has evidence of staph aureus septicemia with positive blood cultures on admission. She had staff aureus septicemia in December 2021 was well. 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 PICC line in place: X-ray confirmed again position with tip in SVC. Full code. Regular diet. Protonix for PUD prophylaxis. Discharge planning: She is adamant about returning home. Discussed with her and her will need to work with case management to arrange for all needed equipment. Attestations Medical Necessity Statement*: Continue admission for assessment management of right prostatic hip joint infection, additional infection foci as above. Coding Level of Care Code Acute Blast Furnace Keeper for Chg Fwd Diagnoses Infection of right prosthetic hip joint T84.51XA Encounter type: initial encounter Staphylococcus aureus septicemia A41.01 Abscess of left knee L02.416 Osteomyelitis of metatarsal M86.9 Status post left knee replacement Z96.652 Rheumatoid arthritis M06.9 Immunocompromised due to corticosteroids D84.821; T38.0X5A; Z79.52 Chronic use of steroids
--- NOTE | 2022-05-19 16:49 | PC.OT ---
OT TREATMENT ATTEMPTED. PATIENT DECLINES AT THIS TIME. SCHEDULED FOR SURGERY TOMORROW.
[2022-05-19] MEDS: cyclobenzaprine 10 mg Tablet PO (19:51)
[2022-05-19] MEDS: diphenhydrAMINE 25 mg Capsule PO (21:02)
[2022-05-20] VITALS (16 sets, daily range): BP systolic 90–138; BP diastolic 58–94; PULSE 0–93; RESP 16–18; TEMP 36.1–37.1; O2SAT 92–100
[2022-05-20] MEDS: ceFAZolin 2,000 MG in sodium chloride 0.9% (plus) 50 ML 100 MG IV ×2 (01:40→09:37)
[2022-05-20 03:38] LABS: Basophils # 0.1 10^3/uL (0.0-0.1); Basophils % 1.3 %; Eosinophils # 0.7 10^3/uL (0.0-0.8); Eosinophils % 6.3 %; Hemoglobin 8.9 g/dL (11.5-15.3); Lymphocytes # 2.2 10^3/uL (0.8-4.8); Lymphocytes % 19.8 %; Mean Corpuscular HGB Conc 31.8 g/dL (30.0-36.0); Mean Corpuscular Hemoglobin 29.1 pg (28.0-34.0); Mean Corpuscular Volume 91.5 fl (81-99); Mean Platelet Volume 10.1 fL (7.4-10.4); Monocytes # 1.4 10^3/uL (0.2-0.9); Monocytes % 12.4 %; Neutrophils # 6.13 10^3/uL (1.8-7.7); Nucleated Red Blood Cells % 0 %; Platelet Count 416 10^3/cmm (130-400); Red Blood Count 3.06 10^6/uL (4.1-5.3); Red Cell Distribution Width 16.9 % (12.1-15.1); White Blood Count 10.9 10^3/uL (4.0-10.0)
[2022-05-20 04:01] LABS: Alanine Aminotransferase 10 U/L (0-33); Albumin Level 2.3 g/dL (3.5-5.2); Alkaline Phosphatase 92 U/L (35-105); Anion Gap 11.9 (5-19); Aspartate Amino Transferase 28 U/L (0-32); Blood Urea Nitrogen 6 mg/dL (6-20); Calcium 8.3 mg/dL (8.5-10.5); Carbon Dioxide 25 mmol/L (22-29); Chloride 108 mmol/L (98-107); Globulin 2.8 g/dL (1.3-4.6); Glucose 87 mg/dL (65-115); Osmolality Calculated 289 mOsm/kg (285-295); Potassium 3.9 mmol/L (3.5-5.1); Sodium 141 mmol/L (136-145); Total Bilirubin 0.2 mg/dL (0.15-1.2); Total Protein 5.1 g/dL (6.6-8.7)
[2022-05-20] MEDS: acetaminophen 500 mg Tablet 1000 MG PO (05:27)
[2022-05-20] MEDS: levothyroxine 175 mcg Tablet PO (05:27)
[2022-05-20] MEDS: ciprofloxacin 500 mg Tablet PO (09:37)
[2022-05-20] MEDS: predniSONE 10 mg Tablet 15 MG PO (09:38)
[2022-05-20] MEDS: mupirocin oint 22 gm 1 APPLIC TOPICAL (09:41)
[2022-05-20] MEDS: pantoprazole DR 40 mg Tablet PO (11:45)
[2022-05-20] MEDS: acetaminophen 1,000 MG/100 ML PIGGYBACK 400 MG IV ×2 (13:49→22:44)
[2022-05-20] MEDS: sodium chloride 0.9% 1,000 ML 30 ML IV (13:49)
--- NOTE | 2022-05-20 13:51 | ANES.PREANE2 ---
Pre-Anesthetic Assessment Height/Weight: Height 1.6 m Weight 113.58 kg Temp Pulse Resp BP Pulse Ox O2 Del Method O2 Flow Rate 98.7 F 81 18 131/78 96 6 05/20/22 13:31 05/20/22 13:31 05/20/22 13:31 05/20/22 13:31 05/20/22 13:31 05/20/22 13:31 05/12/22 18:05 Preop Diagnosis: Infected right total hip arthroplasty Operation Date: 05/10/22 08:10 Proposed Procedures p Left Foot Incision And Drainage(Left) - Zach Cole DPM Operation Date: 05/12/22 15:40 Proposed Procedures p I&D left popliteal abscess(Left) - Devang Horan MD Operation Date: 05/20/22 13:25 Proposed Procedures p remove right total hip with spacer implantation(Left) - Aliza Otto MD Familial anesthetic complications: none Was Beta Brandon taken within 24 hours: N/A Was Clonidine taken within 24 hours: N/A Last intake: Intake Last Liquid Date 05/19/22 Last Liquid Time 17:00 Last Solid Date 05/19/22 Last Solid Time 17:00 Social No alcohol and No tobacco Exam alert, oriented x 3, clear to auscultation bilaterally and regular rate & rhythm Airway Submandibular: within normal limits Cervical ROM: within normal limits Mallampati: Class II Dentition: false CV/HEM Hypertension GI Gastroesophageal Reflux Disease Metabolic Morbid Obesity and Thyroid Disease chronic steroids Musc/skel Osteoarthritis/DJD and Rheumatoid Arthritis Anesthetic Plan ASA status: 3 Anesthesia: Regional (specify below) (SAB) Medications/Allergies Home Medications Medication Instructions Recorded Confirmed Last Taken Type tramadol 50 mg tablet 100 mg PO TID PRN Pain 03/14/20 05/09/22 05/09/22 04:00 History cyclobenzaprine 10 mg tablet 10 mg PO TID PRN muscle spasm #90 01/02/22 05/09/22 01/05/22 08:00 Rx tabs ibuprofen 800 mg tablet 800 mg PO Q4H PRN Pain 01/06/22 05/09/22 01/05/22 18:00 History prednisone 10 mg tablet 10 mg PO DAILY@12 01/06/22 05/09/22 05/08/22 History walker adjustable platform with #1 ea 01/14/22 05/09/22 Unknown Rx padded cuff duloxetine 30 mg capsule,delayed 30 mg PO DAILY #30 caps 05/01/22 05/09/22 04/30/22 Rx release (Cymbalta) pt only took one dos ascorbic acid (vitamin C) 500 mg 500 mg PO BEDTIME 05/09/22 05/09/22 05/08/22 History tablet (Vitamin C) cholecalciferol (vitamin D3) 25 25 mcg PO BEDTIME 05/09/22 05/09/22 05/08/22 History mcg (1,000 unit) capsule (Vitamin D3) diphenhydramine HCl 25 mg capsule 25 mg PO BEDTIME 05/09/22 05/09/22 05/08/22 History (Benadryl) ferrous sulfate 325 mg (65 mg 325 mg PO BEDTIME 05/09/22 05/09/22 05/08/22 History iron) tablet (iron) leflunomide 20 mg tablet 20 mg PO DAILY@12 05/09/22 05/09/22 05/08/22 History levothyroxine 175 mcg tablet 175 mcg PO QAM 05/09/22 05/09/22 05/08/22 History lisinopril 5 mg tablet 5 mg PO DAILY@12 05/09/22 05/09/22 05/08/22 History multivitamin 1 tab PO BEDTIME 05/09/22 05/09/22 05/08/22 History omeprazole 20 mg capsule,delayed 20 mg PO DAILY@12 05/09/22 05/09/22 05/08/22 History release tocilizumab 162 mg/0.9 mL 162 mg SUBCUT Q7D 05/09/22 05/09/22 05/02/22 History subcutaneous syringe (Actemra) pt states stopped zinc acetate 50 mg (zinc) capsule 50 mg PO BEDTIME 05/09/22 05/09/22 05/07/22 History Allergies Allergy/AdvReac Type Severity Reaction Status Date / Time Penicillins Allergy Severe ALGY-Anaphy Verified 05/01/22 09:20 laxis amoxicillin Allergy Unknown Verified 05/01/22 09:20 IV RA Meds Allergy ALGY-Anaphy Uncoded 05/01/22 09:20 laxis Current Medications Generic Name Dose Route Start Last Admin Trade Name Freq PRN Reason Stop Dose Admin Acetaminophen 1,000 mg 05/12/22:30 05/20/22 05:27 Acetaminophen 500 Mg Tablet PO 1,000 mg Q8H MICHELLE Administration Ascorbic Acid 500 mg 05/09/22 21:00 05/19/22 21:05 Ascorbic Acid 500 Mg Tablet PO Not Given BEDTIME MICHELLE Ciprofloxacin HCl 500 mg 05/16/22 21:00 05/20/22 09:37 Ciprofloxacin 500 Mg Tablet PO 500 mg BID@0900,2100 [facility] Administration Protocol Cyclobenzaprine HCl 10 mg 05/13/22 17:07 05/19/22 19:51 Cyclobenzaprine 10 Mg Tablet PO 10 mg TID PRN Administration MUSCLE SPASMS Diphenhydramine HCl 25 mg 05/09/22 21:00 05/19/22 21:02 Diphenhydramine 25 Mg Capsule PO 25 mg BEDTIME MICHELLE Administration Duloxetine HCl 30 mg 05/10/22 09:00 05/20/22 09:41 Duloxetine 30 Mg Capsule PO Not Given DAILY [facility] Enoxaparin Sodium 40 mg 05/13/22 09:00 05/19/22 07:40 Enoxaparin 40 Mg/0.4 Ml Syringe SUBCUT 40 mg Q24H [facility] Administration Ferrous Sulfate 325 mg 05/09/22 21:00 05/19/22 21:05 Ferrous Sulfate Ec 325 Mg Tablet PO Not Given BEDTIME [facility] Cefazolin Sodium 2,000 mg/ 50 mls @ 100 mls/hr 05/16/22 18:00 05/20/22 11:27 Sodium Chloride IV Infused Q8H [facility] Infusion Levothyroxine Sodium 175 mcg 05/10/22 06:00 05/20/22 05:27 Levothyroxine 175 Mcg Tablet PO 175 mcg QAM [facility] Administration Multivitamins Therapeutic 1 tab 05/09/22 21:00 05/19/22 21:05 Multivitamin Therapeutic Tablet PO Not Given BEDTIME [facility] Mupirocin 1 applic 05/16/22 14:00 05/20/22 09:41 Mupirocin Oint 22 Gm TOPICAL 1 applic DAILY [facility] Administration Oxycodone HCl 5 - 10 mg 05/12/22 19:18 05/19/22 11:07 Oxycodone 5 Mg Ir Tab/Cap PO 10 mg Q4H PRN Administration MODERATE TO SEVERE PAIN Pantoprazole Sodium 40 mg 05/10/22 12:00 05/20/22 11:[address] 40 Mg Tablet PO 40 mg DAILY@12 MICHELLE Administration Prednisone 15 mg 05/20/22 09:00 05/20/22 09:38 Prednisone 10 Mg Tablet PO 15 mg DAILY MICHELLE Administration Tramadol HCl 100 mg 05/09/22 16:40 05/19/22 19:51 Tramadol 50 Mg Tablet PO 100 mg TID PRN Administration Pain Vitamin D 1,000 unit 05/09/22 21:00 05/19/22 21:05 Cholecalciferol (Vitamin D3) 1,000 Unit Tablet PO Not Given BEDTIME MICHELLE Zinc Gluconate 50 mg 05/09/22 21:00 05/19/22 21:05 Zinc Gluconate 50 Mg Tablet PO Not Given BEDTIME MICHELLE PFS Anesthesia Medical History (Updated 05/19/22 @ 07:43 by Panda Herrera DPM) Chronic steroid use Chronic use of steroids High risk medication use Hip pain, right Hypertension Hypothyroidism Immunization counseling Leukocytosis Rheumatoid arthritis Rheumatoid arthritis flare Seropositive rheumatoid arthritis of multiple sites Spondylolisthesis at L4-L5 level Surgical History History of foot surgery x5 right History of hand surgery 2right hand, 1 left hand History of hip replacement, total bilateral Status post incision and drainage Status post left knee replacement Family History Other CAD (coronary artery disease) Cancer Hyperlipidemia Hypertension Denies family history of Rheumatoid arthritis Diabetes Lupus Chronic kidney disease (CKD) Lung disease Stroke Social History Smoking and tobacco status: never smoked History of recent travel: No Data Anesthesia 05/20/22 03:30 05/20/22 03:30 Short CBC 05/20/22 Range/Units 03:30 WBC 10.9 H (4.0-10.0) 10^3/uL Hgb 8.9 L (11.5-15.3) g/dL Hct 28.0 L (37.0-47.0) % MCV 91.5 (81-99) fl Plt Count 416 H (130-400) 10^3/cmm Neut % (Auto) 56.0 % Neut # (Auto) 6.13 (1.8-7.7) 10^3/uL BMP 05/20/22 03:30 Sodium 141 Potassium 3.9 Chloride 108 H Carbon Dioxide 25 BUN 6 Creatinine 0.4 L Glucose 87 Calcium 8.3 L Liver Function 05/20/22 Range/Units 03:30 Total Bilirubin 0.2 (0.15-1.2) mg/dL AST 28 (0-32) U/L ALT 10 (0-33) U/L Alkaline Phosphatase 92 (35-105) U/L Albumin 2.3 L (3.5-5.2) g/dL Cardiac Studies: Echocardiogram 05/14/22
[2022-05-20] MEDS: CELEcoxib 200 mg Capsule 400 MG PO (13:52)
--- NOTE | 2022-05-20 13:52 | PC.SOCIAL ---
IMM Updated Updated pt on IMM. No questions voiced. Provided pt a copy. Initialed, dated, & timed copy in chart.
[2022-05-20] MEDS: vancomycin 1,000 MG in sodium chloride 0.9% 250 ML 250 MG IV (16:00)
--- NOTE | 2022-05-20 16:03 | W.PM.OPSUD ---
Surgery/Procedure H&P Update DATE OF PROCEDURE: May 20, 2022 DATE H&P PERFORMED: 05/09/22 H&P UPDATE INFORMATION: I have reviewed H&P completed within last 30 days, I have examined patient prior to procedure, No changes to prior documentation and H&P is in [facility] [place] on date indicated PREOP DIAGNOSIS: Infected right total hip arthroplasty PLANNED PROCEDURE: Operation Date: 05/20/22 13:25 Proposed Procedures p remove right total hip with spacer implantation(Left) - Aliza Otto MD Related Problem List Diagnoses (1) Infection of right prosthetic hip joint: Qualifiers: Encounter type: initial encounter Qualified Code(s): T84.51XA - Infection and inflammatory reaction due to internal right hip prosthesis, initial encounter (2) Morbid obesity with BMI of 45.0-49.9, adult:
--- NOTE | 2022-05-20 16:35 | PC.OT ---
HOLD OT TREATMENT TODAY PATIENT IS IN SURGERY
[2022-05-20] MEDS: tranexamic acid 1,000 mg/10mL SDV 1000 MG IV ×2 (17:05→20:42)
[2022-05-20] MEDS: vancomycin 1,000 MG SDV 3000 MG IRRIGATION (17:29)
[2022-05-20] MEDS: vancomycin 1,000 MG SDV 1000 MG IRRIGATION (17:30)
[2022-05-20] MEDS: vancomycin 1,000 MG SDV 1000 MG XX (17:37)
--- NOTE | 2022-05-20 18:29 | P.PN_ITS ---
Subjective Subjective: Doing well today. Denies any new developments or symptoms. Medications: Reviewed: Yes Vitals/I&O/Wt Last Vital Signs Temp 98.7 F 05/20/22 13:31 Pulse 81 05/20/22 13:31 Resp 18 05/20/22 13:31 BP 131/78 05/20/22 13:31 Pulse Ox 96 05/20/22 13:31 O2 Del Method 05/20/22 13:31 O2 Flow Rate 6 05/12/22 18:05 05/20/22 05/20/22 05/20/22 06:59 14:59 22:59 Intake Total 50 / 630 50 / 50 250 / 300 Output Total 500 / 1700 700 / 700 Balance -450 / -1070 -650 / -650 250 / -400 Weight last 48 hrs Weight 113.58 kg Weight 96.434 kg Physical Exam Const: COMMON NORMALS: patient oriented x3 and alert GENERAL APPEARANCE: cooperative ORIENTATION/CONSCIOUSNESS: Yes awake HENMT: COMMON NORMALS: oropharynx normal Neck/C-Spine: COMMON NORMALS: no JVD Resp: COMMON NORMALS: normal respiratory effort and clear to auscultation bilaterally AUSCULTATION: clear to auscultation bilaterally Cardio: COMMON NORMALS: no JVD, regular rhythm, S1 normal heart sound present, S2 normal heart sound present and No murmurs present (Cardio) RHYTHM: regular rhythm HEART SOUNDS: S1 normal heart sound present and S2 normal heart sound present GI: COMMON NORMALS: Normal to inspection, nondistended, normoactive bowel sounds present, Soft to palpation and non-tender PALPATION: Yes Soft to palpation Extremity: COMMON NORMALS: no joint enlargement and no pedal edema OTHER: Right hip with swelling, faint erythema, wound drainage. Dressing wrapped over L knee. L foot dressing intact, no strikethrough or drainage. Neuro: COMMON NORMALS: patient oriented x3 and moves all extremities SENSORIUM/ORIENTATION: Yes alert Skin: COMMON NORMALS: no rashes or lesions noted GENERAL SKIN EXAM: no rashes or lesions noted Urinary Catheter Management: Frey: Cath Placed During This Visit: yes Reason for Continuing Indwelling Catheter: Perioperative Use in Selected Surgeries Urinary Catheter Date of Insertion: 05/09/22 Urinary Catheter Time of Insertion: 17:37 Data 05/20/22 03:30 05/20/22 03:30 A&P Assessment and plan (1) Infection of right prosthetic hip joint: Hardware explantation, antibiotic spacer placement. Hold Lovenox after today's dose. Transiently increased prednisone dose to 15 mg. Continue IV antibiotic with cefazolin and ciprofloxacin. Continue with oxycodone and tramadol for pain. Arrangement for equipment that will be needed for continued care at home. Qualifiers: Encounter type: initial encounter Qualified Code(s): T84.51XA - Infection and inflammatory reaction due to internal right hip prosthesis, initial encounter (2) Staphylococcus aureus septicemia: Continue antibiotics as above. No further growth on repeat blood culture 05/12. (3) Abscess of left knee: Continue packing, IV antibiotic after discharge and follow-up with orthopedics in office. (4) Osteomyelitis of metatarsal: Had surgery 05/13. Suture removal at 2 weeks. Follow-up with podiatry, or if still here to be removed in the hospital. (5) Status post left knee replacement: (6) Rheumatoid arthritis: (7) Immunocompromised due to corticosteroids: (8) Chronic use of steroids: Plan 51-year-old lady with rheumatoid arthritis on immunosuppressants with a complicated infectious history as noted above in HPI. To summarize patient has been suffering from abscesses involving the left foot, left knee and right hip since December 2021. Additionally she has evidence of staph aureus septicemia with positive blood cultures on admission. She had staff aureus septicemia in December 2021 was well. 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 PICC line in place: X-ray confirmed again position with tip in SVC. Full code. Regular diet. Protonix for PUD prophylaxis. Discharge planning: She is adamant about returning home. Discussed with her and her will need to work with case management to arrange for all needed equipment. Attestations Medical Necessity Statement*: Continue admission for assessment of management of right prostatic hip infection, other multifocal infiltrates as above. Coding Level of Care Code Acute Turbo Operator for Paolo Garcias Diagnoses Infection of right prosthetic hip joint T84.51XA Encounter type: initial encounter Staphylococcus aureus septicemia A41.01 Abscess of left knee L02.416 Osteomyelitis of metatarsal M86.9 Status post left knee replacement Z96.652 Rheumatoid arthritis M06.9 Immunocompromised due to corticosteroids D84.821; T38.0X5A; Z79.52 Chronic use of steroids
--- NOTE | 2022-05-20 19:13 | XRR_ITS ---
PROCEDURE INFORMATION: Exam: XR Right Hip Exam date and time: 05/20/2022 9:37 PM Age: 51 years old Clinical indication: Condition or disease; Joint replacement status; Right; Prior surgery; Surgery date: Post-operative (0-2 days); Additional info: Replacement post operation, right femur TECHNIQUE: Imaging protocol: Radiologic exam of the Right hip. Views: 1 view hip with pelvis when performed. COMPARISON: CT hip RT wo/w con [id number] 05/10/2022 7:32 PM FINDINGS: Bones/joints: Interval revision of right total hip replacement with right lateral skin lan. Soft tissues: See Bones/joints finding. XR/XR hip RT 1V wo/w pel [id number] IMPRESSION: Interval revision of right total hip replacement with right lateral skin lan.
--- NOTE | 2022-05-20 21:33 | XR_ITS ---
WS: [id number] Exam: XR pelvis 1-2V* [id number] Date/Time of Exam: 05/20/2022 9:33 PM Reason For Exam: Status post removal of prosthesis, temporary spacer Comparison 05/09/2022. Previously noted right total hip prosthesis has been the removed. A temporary femoral head and neck p rosthesis has been placed and appears to be in satisfactory position. The pelvis is otherwise intact. A total left hip prosthesis is also noted. Postoperative changes in the soft tissues on the right an d lateral surgical skin clips noted.
--- NOTE | 2022-05-20 21:37 | PM.OP ---
Operative Report Date of procedure: May 20, 2022 Pre-op diagnosis: Infected right total hip arthroplasty Post-op diagnosis: Infected right total hip arthroplasty Post-op findings: Infected right total hip arthroplasty Procedure done: Removal right infected total hip arthroplasty with placement of temporary cemented prosthesis Implants: The DePuy remedy modular long stem small femoral stem with a modular head size medium, 54 mm, cemented Specimens removed/disposition: Cultures of synovium and synovial fluid, total hip prosthesis removed Pathology: As above Surgeon: Aliza Otto Driver Examiner: [facility] operating room technicians Anesthesia: General (Intubated, ASA 3) Estimated blood loss (mL): 200 IV fluids (mL): 1,500 Urine output (mL): 700 Complications: None Findings: Infected right total hip arthroplasty with well fixed femoral stem and acetabular components. Proximal femoral shaft loss. Condition: stable Disposition: PACU Brief History: Kristine Barbosa is a 51 year old female who presented through the emergency department with complaints of increasing redness and swelling of her left foot initially.? Subsequently, she was also found to have severe left knee and right hip pain. Patient has a history of rheumatoid arthritis.? She had a history of total hip arthroplasty of the right hip with Dr. Venegas in 2004.? She also had a left total hip arthroplasty approximately 2 years later.? The patient was seen in November, with a right gluteal abscess.? This was treated with insertion of a drain through interventional radiology as it did not appear at that time to connect to the hip joint.? Additionally, the patient had a left total knee arthroplasty with Dr. Horan approximately 2 years ago.? Reportedly, he saw her about 2 months ago and obtained a left knee aspiration due to pain and swelling which were reportedly negative.? She states she has had ongoing pain in the right hip and left knee since that time, but that it worsened significantly approximately a week prior to admission.? She also states on May 09, she had sergio pus coming from the back of her left knee and left calf with pain primarily in the knee and left foot but also in the right hip.? Prior to my request for consultation, the patient had incision and drainage with Dr. Horan of both the left knee posteriorly and also the right hip.? Reportedly, upon opening of the fascia, there was sergio purulent fluid in the hip.? Dr. Horan did not feel that the posterior knee collection communicated with the joint.? I was asked to see the patient in consultation as attempt was made to transfer the patient to an alternate higher level of care.? Dr. Hor[place], and there were no beds available.? Certainly, she has multiple comorbidities as well as a very complex orthopedic history.? I saw the patient and advised her that I would address her hip as the prosthesis needs to come out.? We will insert a temporary hip prosthesis with plans for either myself or Dr. Horan to reimplant after sufficient IV antibiotic.? Dr. Horan will also need to further evaluate her knee upon his return as he placed this knee approximately 2 years ago. Risks and complications of the surgical procedure were discussed with the patient. Consents were signed. Procedure: The patient was brought to the operating theater, and after undergoing adequate general anesthesia, intubated, ASA 3 she was transferred to the operating room table. The patient was placed in the full lateral position and held in place with the pegboard. Patient's right lower extremity was draped free and was subsequently prepped and further draped free. The patient's previous incision from the drainage performed by Dr. Horan was opened prior to prepping. The leg was prepped with Betadine. A surgical pause was performed prior to commencement of the surgical procedure. During the surgical pause, we confirmed the site and side of surgery as well as availability of equipment. Additionally, we confirmed preoperative surgical markings. X-rays are also reviewed during this time. Following the surgical pause, the patient's previous incision which had been accomplished for her irrigation and debridement was opened, and further an incision was made continuing proximally and distally as necessary to allow access to the hip joint. Dissection continues to skin and soft tissue using scalpel. Hemostasis was obtained using electrocautery. Tensor fascia bushra was identified and incised longitudinally where it has not opened from the patient's previous incision. Sciatic nerve was not easily palpated. A Charnley U retractor was placed with care being taken to protect the sciatic nerve during placement. The hip was internally rotated. Piriformis and short external rotators were then identified, tagged, and subsequently incised from the posterior aspect of the hip joint. The remaining short external rotators were also incised. These were then elevated off the capsule and the capsule was entered in a T-type fashion. Each side of the capsule was then tagged. Thickened synovitis was removed from the inner layer of the capsule. Infectious synovium was removed as well. Cultures were taken and synovium was sent to pathology and for culture. The patient's previous hip was dislocated after soft tissues were elevated. The femoral stem was noted to be well fixed. Flexible osteotomes were used to loosen the femoral stem from the prosthesis. It was well fixed and the proximal femur was noted to be quite soft. Essentially, as the osteotomes were placed against the femoral stem, the proximal femur, which was very soft, into multiple fragments. With significant effort, we were able to remove the femoral stem. The femur and associated proximal pieces were retracted out of position and attention was directed to the acetabulum. Soft tissues were elevated from around the acetabulum with care being taken to protect the capsule. The Amador capsular osteotome was to be used for removal of the acetabulum, but there was one screw fixating the acetabular component. The liner was able to be removed gently. The fixation screw was then removed. The liner was replaced and we were then able to use the osteotome to remove the acetabular component. We remove the component with very little bone loss. The acetabulum was evaluated and found to have no evidence of large bone loss. The decision was made to not place an acetabular component. We decided to place the unipolar stem in position. Trial reductions were then accomplished, and we were able to place the 54 mm, medium, modular head. Progressively, we trialed with the stems which were available. The canal was noted to be quite small distally, and reaming was required to prepare for the long stem. Given the multiple fragments proximally, a longstem was chosen. We chose to use a longstem small. We reamed to a 15 mm to allow the distal stem to be placed. Imaging was used in the room to confirm that we were indeed within the canal. Reaming was accomplished without difficulty. Trial reduction was then accomplished with his small longstem prosthesis. We are able to support the stem on the lesser trochanteric fragment which was still connected to the main femoral stem. When the hip was reduced under a trial situation, the stem moved and we were able to estimate leg length, but were not able to do a trial reduction. The prosthesis was brought to the table. This was placed into position and again imaging was accomplished with the stem in position. We were happy with the construct. Therefore we began the preparation process. The femoral head was cemented in appropriate position for the femoral stem. This was a glue which came with the temporary prosthesis. Once this had set, cement was mixed. We placed cement around the component to place it into the proximal femur. Attempt was made to reproduce leg lengths. The cement was allowed to set in position and the hip was then reduced. The wound was then copiously irrigated, and it was suctioned dry. It was placed through range of motion and found to be stable. Closure was then accomplished by closing the posterior capsule and short external rotators. Tensor fascia bushra was then closed after a Hemovac drain was placed. The drain was placed to self suction. Tensor fascia bushra was closed over this with care being taken to protect the drain. This was closed with 0 Vicryl. Powdered vancomycin was then placed along with Surgiflo. Subcutaneous tissues were closed with a combination of 0 Vicryl and 2-0 Monocryl. Skin was closed with skin lan. This was followed by Analy Murillo, rosita Narayan. Drain sponges were placed about the drains.. The patient was returned the Recovery Room in satisfactory condition. There were no complications. The patient will be discharged to the floor for postoperative rehabilitation and pain management. Related Problem List Diagnoses (1) Infection of right prosthetic hip joint: (2) Morbid obesity with BMI of 45.0-49.9, adult:
[2022-05-20] MEDS: fentaNYL 50 mcg/mL INJ 2mL IVP (21:50)
[2022-05-20] MEDS: HYDROmorphone 1 mg/mL INJ 1 mL 0.5 MG IVP (22:42)
[2022-05-20] MEDS: cyclobenzaprine 10 mg Tablet PO (22:45)
[2022-05-21] VITALS (16 sets, daily range): BP systolic 92–116; BP diastolic 59–67; PULSE 75–85; RESP 15–19; TEMP 36.4–37; O2SAT 92–97
[2022-05-21] MEDS: ceFAZolin 2,000 MG in sodium chloride 0.9% (plus) 50 ML 100 MG IV ×3 (01:14→18:01)
[2022-05-21] MEDS: oxyCODONE 5 mg IR Tab/Cap PO ×4 (01:18→21:38)
[2022-05-21 03:32] LABS: Basophils # 0.1 10^3/uL (0.0-0.1); Basophils % 0.3 %; Hematocrit 24.7 % (37.0-47.0); Hemoglobin 7.7 g/dL (11.5-15.3); Lymphocytes % 3.9 %; Mean Corpuscular HGB Conc 31.2 g/dL (30.0-36.0); Mean Corpuscular Hemoglobin 29.3 pg (28.0-34.0); Mean Corpuscular Volume 93.9 fl (81-99); Mean Platelet Volume 10.6 fL (7.4-10.4); Monocytes # 1.2 10^3/uL (0.2-0.9); Monocytes % 4.8 %; Neutrophils # 21.72 10^3/uL (1.8-7.7); Neutrophils % 89.2 %; Nucleated Red Blood Cells % 0 %; Platelet Count 413 10^3/cmm (130-400); Red Blood Count 2.63 10^6/uL (4.1-5.3); White Blood Count 24.4 10^3/uL (4.0-10.0)
[2022-05-21] MEDS: sodium chloride 0.9% 1,000 ML 100 ML IV ×2 (03:57→14:03)
[2022-05-21 03:59] LABS: Alanine Aminotransferase 12 U/L (0-33); Albumin Level 2.4 g/dL (3.5-5.2); Alkaline Phosphatase 88 U/L (35-105); Anion Gap 11.7 (5-19); Aspartate Amino Transferase 32 U/L (0-32); Blood Urea Nitrogen 8 mg/dL (6-20); Calcium 7.5 mg/dL (8.5-10.5); Carbon Dioxide 22 mmol/L (22-29); Chloride 109 mmol/L (98-107); Globulin 2.4 g/dL (1.3-4.6); Glucose 150 mg/dL (65-115); Osmolality Calculated 287 mOsm/kg (285-295); Potassium 4.7 mmol/L (3.5-5.1); Sodium 138 mmol/L (136-145); Total Bilirubin 0.2 mg/dL (0.15-1.2); Total Protein 4.8 g/dL (6.6-8.7)
[2022-05-21] MEDS: levothyroxine 175 mcg Tablet PO (06:08)
[2022-05-21] MEDS: acetaminophen 1,000 MG/100 ML PIGGYBACK 400 MG IV ×2 (06:08→14:02)
--- NOTE | 2022-05-21 07:43 | ANE.PACU2 ---
Inpatient post-anesthesia follow up: Airway intact: Yes Vital signs: Temperature 98.5 F Pulse Rate 84 Respiratory Rate 16 Blood Pressure 111/67 Pulse Oximetry 92 Oxygen Delivery Me thod [ Room Air Current Rate & Del freddy] Oxygen Delivery Me thod Room Air Oxygen Flow Rate 6 Fraction of Inspir ed Oxygen Hydration adequate: Yes Nausea and vomiting: No Pain level: 4 Mental status: Baseline
[2022-05-21] MEDS: enoxaparin 40 mg/0.4 mL Syringe SUBCUT (08:11)
[2022-05-21] MEDS: predniSONE 10 mg Tablet 15 MG PO (08:11)
[2022-05-21] MEDS: mupirocin oint 22 gm 1 APPLIC NASAL ×2 (08:21→18:02)
[2022-05-21] MEDS: mupirocin oint 22 gm 1 APPLIC TOPICAL (08:21)
[2022-05-21] MEDS: chlorhexidine gluconate 0.12% Btl 473 mL 30 ML MUCOUS MEM ×4 (08:33→21:31)
[2022-05-21] MEDS: ciprofloxacin 500 mg Tablet PO ×2 (08:34→21:28)
[2022-05-21] MEDS: TRAMadol 50 mg Tablet 100 MG PO ×2 (11:33→18:18)
[2022-05-21] MEDS: CELEcoxib 200 mg Capsule PO ×2 (11:34→21:35)
[2022-05-21] MEDS: pantoprazole DR 40 mg Tablet PO (11:47)
--- NOTE | 2022-05-21 16:37 | PM.PN ---
Subjective Subjective: Patient has significant pain in the recently revised right hip arthroplasty. She had bone loss proximally with removal of her femoral stem. She has a cemented temporary prosthesis which bleaches antibiotic to the area. She is quite uncomfortable. Medications: Reviewed: Yes Vitals/I&O/Wt Last Vital Signs Temp 98.1 F 05/21/22 15:27 Pulse 85 05/21/22 15:27 Resp 16 05/21/22 15:39 BP 116/60 05/21/22 15:27 Pulse Ox 97 05/21/22 15:27 O2 Del Method 05/21/22 15:27 O2 Flow Rate 6 05/20/22 21:55 05/21/22 05/21/22 05/21/22 06:59 14:59 22:59 Intake Total 340 / 2240 1830 / 1830 Output Total 110 / 2410 Balance 230 / -170 1830 / 1830 Weight last 48 hrs Weight 224 lb Weight 250 lb 6.4 oz Weight 212 lb 9.6 oz Physical Exam Const: COMMON NORMALS: patient oriented x3 and alert GENERAL APPEARANCE: cooperative ORIENTATION/CONSCIOUSNESS: Yes awake HENMT: COMMON NORMALS: normocephalic, atraumatic and oropharynx normal HEAD & SCALP: normocephalic and atraumatic Eye: GENERAL EYE: appearance normal, both eyes and all related structures Chest: COMMONS NORMALS: normal inspection of the chest Resp: COMMON NORMALS: normal respiratory effort EFFORT & INSPECTION: Yes able to speak in complete sentences and Yes symmetric chest movement Extremity: RIGHT LOWER EXTREMITY: Yes hip joint (Dressing is removed, but Hemovac was left in place.) Right hip: Yes inspection (Wound benign with no significant drainage.), Yes palpation (Diffusely tender.), Yes ROM (Not evaluated.), Yes neurovascular exam (Intact distally.) and Yes other (Approximately 800 cc from the Hemovac over night) Neuro: COMMON NORMALS: patient oriented x3 and moves all extremities SENSORIUM/ORIENTATION: Yes alert Psych: COMMON NORMALS: mental status grossly normal APPEARANCE: Yes grossly normal ATTITUDE: Yes calm and Yes engaged ATTENTION/CONCENTRATION: Yes attention grossly intact Skin: COMMON NORMALS: no rashes or lesions noted GENERAL SKIN EXAM: no rashes or lesions noted Urinary Catheter Management: Frey: Cath Placed During This Visit: yes Reason for Continuing Indwelling Catheter: Other Urinary Catheter Date of Insertion: 05/09/22 Urinary Catheter Time of Insertion: 17:37 Data 05/21/22 02:57 05/21/22 02:57 Micro: Microbiology 05/20/22 17:50 Gram Stain - Final Hip - #1 05/20/22 17:50 Gram Stain - Final Hip - #1 Attestations Medical Necessity Statement*: Ongoing care for revision right hip arthroplasty secondary to infection. Coding Level of Care Code Acute Stab Setter And Driller for Paolo Garcias
[2022-05-21] MEDS: iron polysaccharide complex 150 mg Capsule PO (18:00)
[2022-05-21] MEDS: sennosides-docusate Tablet 2 TAB PO (18:00)
[2022-05-21] MEDS: calcium carbonate 500 mg Chew Tablet 1000 MG PO (18:00)
--- NOTE | 2022-05-21 18:07 | PM.PN ---
Subjective Subjective: Feeling lightheaded this morning trying to set up for first time. Initially in pain, but once got little bit more comfortable things got better. Maintain blood pressure while sitting up. No trouble breathing. No chest pain. Intermittent shock like discomfort on superior lateral aspect of her breast when it is touched by the PICC line. No rash there. No swelling or bruising. Denies history of shingles. Discussed position confirmed by x-ray. If particularly bothersome, persistent, discussed with her consideration of switching PICC line over the other arm, but she would rather not do that. Medications: Reviewed: Yes Vitals/I&O/Wt Last Vital Signs Temp 98.1 F 05/21/22 15:27 Pulse 85 05/21/22 15:27 Resp 16 05/21/22 15:39 BP 116/60 05/21/22 15:27 Pulse Ox 97 05/21/22 15:27 O2 Del Method 05/21/22 15:27 O2 Flow Rate 6 05/20/22 21:55 05/21/22 05/21/22 05/21/22 06:59 14:59 22:59 Intake Total 340 / 2240 1830 / 1830 Output Total 110 / 2410 550 / 550 Balance 230 / -170 1830 / 1830 -550 / 1280 Weight last 48 hrs Weight 101.605 kg Weight 113.58 kg Weight 96.434 kg Physical Exam Narrative: Sitting up at edge of bed with PT. Const: COMMON NORMALS: patient oriented x3 and alert GENERAL APPEARANCE: cooperative ORIENTATION/CONSCIOUSNESS: Yes awake HENMT: COMMON NORMALS: oropharynx normal Neck/C-Spine: COMMON NORMALS: no JVD Resp: COMMON NORMALS: normal respiratory effort and clear to auscultation bilaterally AUSCULTATION: clear to auscultation bilaterally Cardio: COMMON NORMALS: no JVD, regular rhythm, S1 normal heart sound present, S2 normal heart sound present and No murmurs present (Cardio) RHYTHM: regular rhythm HEART SOUNDS: S1 normal heart sound present and S2 normal heart sound present GI: COMMON NORMALS: Normal to inspection, nondistended, normoactive bowel sounds present, Soft to palpation and non-tender PALPATION: Yes Soft to palpation Extremity: COMMON NORMALS: no joint enlargement and no pedal edema OTHER: Right hip dressing Dressing wrapped over L knee. L foot dressing intact, no strikethrough or drainage. Neuro: COMMON NORMALS: patient oriented x3 and moves all extremities SENSORIUM/ORIENTATION: Yes alert Skin: COMMON NORMALS: no rashes or lesions noted GENERAL SKIN EXAM: no rashes or lesions noted Urinary Catheter Management: Frey: Cath Placed During This Visit: yes Reason for Continuing Indwelling Catheter: Other Urinary Catheter Date of Insertion: 05/09/22 Urinary Catheter Time of Insertion: 17:37 Data 05/21/22 02:57 05/21/22 02:57 Micro: Microbiology 05/20/22 17:50 Gram Stain - Final Hip - #1 05/20/22 17:50 Gram Stain - Final Hip - #1 A&P Assessment and plan (1) Infection of right prosthetic hip joint: Status post hardware explantation. Cement spacer in place. Limited weightbearing per orthopedics. Hemoglobin 7.7. Requested recheck. Transiently increased prednisone dose to 15 mg. Continue IV antibiotic with cefazolin and ciprofloxacin. Continue with oxycodone and tramadol for pain. Arrangement for equipment that will be needed for continued care at home. Qualifiers: Encounter type: initial encounter Qualified Code(s): T84.51XA - Infection and inflammatory reaction due to internal right hip prosthesis, initial encounter (2) Staphylococcus aureus septicemia: Continue antibiotics as above. No further growth on repeat blood culture 05/12. (3) Abscess of left knee: Continue packing, IV antibiotic after discharge and follow-up with orthopedics in office. (4) Osteomyelitis of metatarsal: Had surgery 05/13. Suture removal at 2 weeks. Follow-up with podiatry, or if still here to be removed in the hospital. (5) Status post left knee replacement: (6) Rheumatoid arthritis: (7) Immunocompromised due to corticosteroids: (8) Chronic use of steroids: Plan 51-year-old lady with rheumatoid arthritis on immunosuppressants with a complicated infectious history as noted above in HPI. To summarize patient has been suffering from abscesses involving the left foot, left knee and right hip since December 2021. Additionally she has evidence of staph aureus septicemia with positive blood cultures on admission. She had staff aureus septicemia in December 2021 was well. 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 PICC line in place: X-ray confirmed again position with tip in SVC. Discomfort on PICC line touching superior lateral right breast. No erythema, swelling, bruising, no mass palpated. Adhesive dressing to help protect the area. Consider mammography after discharge. She would rather not switch to PICC line to the other side. Full code. Regular diet. Protonix for PUD prophylaxis. Discharge planning: She is adamant about returning home. Discussed with her and her will need to work with case management to arrange for all needed equipment. Attestations Medical Necessity Statement*: Continue admission for assessment of management following plantation of infected right hip prosthesis, postoperative care, post hospital disposition planning and arrangements. Coding Level of Care Code Acute Technology Analyst for diane Garcias Diagnoses Infection of right prosthetic hip joint T84.51XA Encounter type: initial encounter Staphylococcus aureus septicemia A41.01 Abscess of left knee L02.416 Osteomyelitis of metatarsal M86.9 Status post left knee replacement Z96.652 Rheumatoid arthritis M06.9 Immunocompromised due to corticosteroids D84.821; T38.0X5A; Z79.52 Chronic use of steroids
[2022-05-21 18:10] LABS: Hemoglobin 6.3 g/dL (11.5-15.3)
--- NOTE | 2022-05-21 18:35 | PC.NURSE ---
Attempted to perform PICC line dressing change, however patient refuses, stating that she would rather have that done tomorrow.
[2022-05-21] MEDS: acetaminophen 500 mg Tablet 1000 MG PO (21:27)
[2022-05-21] MEDS: diphenhydrAMINE 25 mg Capsule PO (21:30)
[2022-05-21] MEDS: ferrous sulfate EC 325 mg Tablet PO (21:30)
[2022-05-21] MEDS: cyclobenzaprine 10 mg Tablet PO (21:35)
[2022-05-22] VITALS (11 sets, daily range): BP systolic 92–121; BP diastolic 59–73; PULSE 76–81; RESP 16–21; TEMP 36.8–37.1; O2SAT 93–97
[2022-05-22] MEDS: sodium chloride 0.9% (100 ml) 100 ML 150 ML (00:23)
[2022-05-22] MEDS: ceFAZolin 2,000 MG in sodium chloride 0.9% (plus) 50 ML 100 MG IV ×3 (02:37→17:33)
[2022-05-22 05:42] LABS: Basophils # 0.1 10^3/uL (0.0-0.1); Basophils % 0.8 %; Eosinophils # 0.2 10^3/uL (0.0-0.8); Eosinophils % 1.4 %; Hematocrit 22.9 % (37.0-47.0); Hemoglobin 7.2 g/dL (11.5-15.3); Lymphocytes # 2.3 10^3/uL (0.8-4.8); Lymphocytes % 15.2 %; Mean Corpuscular HGB Conc 31.4 g/dL (30.0-36.0); Mean Corpuscular Volume 92.3 fl (81-99); Mean Platelet Volume 10.6 fL (7.4-10.4); Monocytes # 1.8 10^3/uL (0.2-0.9); Neutrophils # 10.07 10^3/uL (1.8-7.7); Neutrophils % 68.2 %; Nucleated Red Blood Cells % 0 %; Platelet Count 358 10^3/cmm (130-400); Red Blood Count 2.48 10^6/uL (4.1-5.3); Red Cell Distribution Width 17.1 % (12.1-15.1); White Blood Count 14.8 10^3/uL (4.0-10.0)
[2022-05-22 06:07] LABS: Alanine Aminotransferase < 5 U/L (0-33); Albumin Level 2.3 g/dL (3.5-5.2); Alkaline Phosphatase 81 U/L (35-105); Anion Gap 11.3 (5-19); Aspartate Amino Transferase 24 U/L (0-32); Blood Urea Nitrogen 10 mg/dL (6-20); Calcium 7.8 mg/dL (8.5-10.5); Carbon Dioxide 22 mmol/L (22-29); Chloride 108 mmol/L (98-107); Globulin 2.3 g/dL (1.3-4.6); Glucose 83 mg/dL (65-115); Osmolality Calculated 282 mOsm/kg (285-295); Potassium 4.3 mmol/L (3.5-5.1); Sodium 137 mmol/L (136-145); Total Bilirubin 0.2 mg/dL (0.15-1.2); Total Protein 4.6 g/dL (6.6-8.7)
[2022-05-22] MEDS: acetaminophen 500 mg Tablet 1000 MG PO ×3 (06:10→20:37)
[2022-05-22] MEDS: levothyroxine 175 mcg Tablet PO (06:11)
[2022-05-22] MEDS: oxyCODONE 5 mg IR Tab/Cap PO ×3 (08:35→17:34)
[2022-05-22] MEDS: ciprofloxacin 500 mg Tablet PO ×2 (08:36→20:40)
[2022-05-22] MEDS: cholecalciferol (vitamin D3) 1,000 unit Tablet 1000 UNIT PO (08:36)
[2022-05-22] MEDS: cyclobenzaprine 10 mg Tablet PO ×3 (08:36→22:42)
[2022-05-22] MEDS: calcium carbonate 500 mg Chew Tablet 1000 MG PO ×2 (08:36→17:36)
[2022-05-22] MEDS: sennosides-docusate Tablet 2 TAB PO ×2 (08:37→17:36)
[2022-05-22] MEDS: iron polysaccharide complex 150 mg Capsule PO ×2 (08:37→17:36)
[2022-05-22] MEDS: predniSONE 10 mg Tablet 15 MG PO (08:37)
[2022-05-22] MEDS: duloxetine 30 mg Capsule PO (08:37)
[2022-05-22] MEDS: chlorhexidine gluconate 0.12% Btl 473 mL 30 ML MUCOUS MEM ×4 (08:41→20:35)
[2022-05-22] MEDS: enoxaparin 40 mg/0.4 mL Syringe SUBCUT (08:41)
[2022-05-22] MEDS: mupirocin oint 22 gm 1 APPLIC TOPICAL (08:42)
[2022-05-22] MEDS: mupirocin oint 22 gm 1 APPLIC NASAL ×2 (08:42→17:36)
[2022-05-22 10:38] LABS: Hemoglobin 7.7 g/dL (11.5-15.3)
--- NOTE | 2022-05-22 10:55 | PC.CHAP ---
Pastoral Care Encounter/Spiritual Assessment Type of Contact [] Declined geodesist visit [] Patient/Family/Request visit [] Outpatient visit [] Follow-up visit [] Physician referral [] Code/Alert xx[] Routine visit [] Staff referral [] Actively dying [] Patient sleeping [] Family support [] [] Out of room [] Palliative care [] [] Receiving care in room [] Pre-surgical visit [] Trauma [] Long length of stay [] ICU visit [] Other: Relational/Emotional Strength [] Patient feels connected with others/family/visitors/staff [] Distress [] Loneliness/isolation [] Abandonment Spirituality of Patient [] Person of Mary [] Attends Yazdanism of their Mary [] Believes in Prayer [] Reads Bible or Orthodoxy materials [] There are Spiritual issues to be addressed Diorama Model Maker Interventions [] Prayer [] Active listening [] Non-anxious presence [] Spiritual/emotional support [] Crisis/trauma care [] Spiritual counseling [] Bereavement support [] Provided bereavement packet [] Provided Bible/devotional materials [] Provided toy/stuffed animal, coloring book to patient or family member [] Provided Communion [] Anointing/[place] [] Salvation [] Completed spiritual assessment [] Other: Impact on Illness or Injury [] Angry [] Fearful [] Anxious [] Often cries [] Exhaustion [] Unable to work [] Unable to attend church [] Unable to walk/stand [] Unable to read [] Unable to drive [] Unable to eat/drink [] Unable to sleep [] Unable to be with family [] Patient intubated [] Other: Summary Time spent with patient
[2022-05-22] MEDS: TRAMadol 50 mg Tablet 100 MG PO ×3 (11:18→23:30)
[2022-05-22] MEDS: pantoprazole DR 40 mg Tablet PO (11:20)
--- NOTE | 2022-05-22 11:37 | P.PN_ITS ---
Subjective Subjective: Patient is seen in her room. She is complaining of significant right hip pain. She is attempting to work with physical therapy. Recommendation has been made to have the patient be transferred to assisted, but she is reluctant to do this. Medications: Reviewed: Yes Medication Review Details: Generic Name Dose Route Start Last Admin Trade Name Freq PRN Reason Stop Dose Admin Acetaminophen 650 mg 05/09/22 16:24 05/10/22 04:31 Acetaminophen 32 5 Mg Tablet PO 650 mg Q6H PRN Administration Mild/Mod Pain Or Temp >/= 101 Ascorbic Acid 500 mg 05/09/22 21:00 05/09/22 19:48 Ascorbic Acid 50 0 Mg Tablet PO 500 mg BEDTIME MICHELLE Administration Diphenhydramine HC l 25 mg 05/09/22 21:00 05/09/22 19:48 Diphenhydramine 25 Mg Capsule PO 25 mg BEDTIME MICHELLE Administration Ferrous Sulfate 325 mg 05/09/22 21:00 05/09/22 19:48 Ferrous Sulfate Ec 325 Mg Tablet PO 325 mg BEDTIME MICHELLE Administration Hydromorphone HCl 0.5 mg 05/10/22 07:16 05/10/22 07:20 Hydromorphone 1 Mg/Ml Inj 1 Ml IVP 0.5 mg ONCE PRN Administration For preop pain/an xiety Imipenem/Cilastati n Sodium 500 100 mls @ 200 mls /hr 05/09/22 16:45 05/10/22 17:24 mg/ Sodium Chlor izzy IV 200 mls/hr Q6H MICHELLE Administration Protocol Vancomycin/PEG/NAD A/Lysine/Water 1,250 mg in 250 m ls @ 250 mls/hr 05/10/22 00:00 05/10/22 00:21 Vancocin IV Infused Q12H MICHELLE Infusion Sodium Chloride 1,000 mls @ 30 ml s/hr 05/10/22 07:30 05/10/22 09:20 Sodium Chloride 0.9% IV 05/11/22 07:29 30 mls/hr .Q24H MICHELLE Administration Sodium Chloride 1,000 mls @ 100 m ls/hr 05/10/22 11:00 05/10/22 15:57 Sodium Chloride 0.9% IV 05/11/22 10:59 100 mls/hr .Q10H MICHELLE Administration Levothyroxine Sodi um 175 mcg 05/10/22 06:00 05/10/22 05:43 Levothyroxine 17 5 Mcg Tablet PO 175 mcg QAM MICHELEL Administration Multivitamins Ther apeutic 1 tab 05/09/22 21:00 05/09/22 19:48 Multivitamin The rapeutic Tablet PO 1 tab BEDTIME MICHELLE Administration Ondansetron HCl 4 mg 05/09/22 16:23 05/09/22 20:52 Ondansetron 2 Mg /Ml Sdv 2 Ml IVP 4 mg Q6H PRN Administration NAUSEA AND VOMITI NG Pantoprazole Sodiu m 40 mg 05/10/22 12:00 05/10/22 15:[address] 40 Mg Tablet PO 40 mg DAILY@12 MICHELLE Administration Tramadol HCl 100 mg 05/09/22 16:40 05/10/22 03:38 Tramadol 50 Mg T ablet PO 100 mg TID PRN Administration Pain Vitamin D 1,000 unit 05/09/22 21:00 05/09/22 19:48 Cholecalciferol (Vitamin D3) 1,000 Unit Tablet PO 1,000 unit BEDTIME MICHELLE Administration Zinc Gluconate 50 mg 05/09/22 21:00 05/09/22 19:48 Zinc Gluconate 5 0 Mg Tablet PO 50 mg BEDTIME MICHELLE Administration Vitals/I&O/Wt Last Vital Signs Temp 98.3 F 05/22/22 08:00 Pulse 77 05/22/22 08:00 Resp 18 05/22/22 08:35 BP 101/67 05/22/22 08:00 Pulse Ox 97 05/22/22 08:00 O2 Del Method 05/21/22 21:12 O2 Flow Rate 6 05/20/22 21:55 05/21/22 05/22/22 05/22/22 22:59 06:59 14:59 Intake Total 1450 / 3280 1150 / 4430 140 / 140 Output Total 700 / 700 450 / 1150 Balance 750 / 2580 700 / 3280 140 / 140 Weight last 48 hrs Weight 218 lb 3.2 oz Weight 224 lb Physical Exam Const: COMMON NORMALS: no acute distress, patient oriented x3 and alert GE NERAL APPEARANCE: cooperative and comfortable ORIENTATION/CONSCIOUSNESS: Yes awake HENMT: COMMON NORMALS: normocephalic, atraumatic and oropharynx normal HEAD & SCALP: normocephalic and atraumatic Eye: GENERAL EYE: appearance normal, both eyes and all related structures Chest: COMMONS NORMALS: normal inspection of the chest Resp: COMMON NORMALS: normal respiratory effort EFFORT & INSPECTION: Yes able to speak in complete sentences and Yes symmetric chest movement Extremity: NARRATIVE EXTREMITY EXAM: Patient continues to get wet-to-dry dressings to the left knee posteriorly. RIGHT LOWER EXTREMITY: Yes hip joint (Hemovac is removed. Incision is dry and intact.) Right hip: Yes inspection (No significant swelling.), Yes ROM (Not evaluated.) and Yes neurovascular exam (Intact distally with no evidence of DVT.) Neuro: COMMON NORMALS: patient oriented x3 and moves all extremities SENSORIUM/ORIENTATION: Yes alert Psych: COMMON NORMALS: mental status grossly normal APPEARANCE: Yes grossly normal ATTITUDE: Yes calm and Yes engaged ATTENTION/CONCENTRATION: Yes at tention grossly intact Skin: COMMON NORMALS: no rashes or lesions noted GENERAL SKIN EXAM: no rashes or lesions noted Urinary Catheter Management: Frey: Cath Placed During This Visit: yes Reason for Continuing Indwelling Catheter: Other Urinary Catheter Date of Insertion: 05/09/22 Urinary Catheter Time of Insertion: 17:37 Data 05/22/22 10:10 05/22/22 05:10 Micro: Microbiology 05/20/22 17:50 Gram Stain - Final Hip - #1 05/20/22 17:50 Gram Stain - Final Hip - #1 A&P Assessment and plan (1) Infection of right prosthetic hip joint: Patient has undergone removal of her infected prosthesis with placement of temporary spacer. This is a unipolar type cement prosthesis which leeches antibiotics. This has been explained to the patient. Hemovac was placed at the time of surgery, and this is now removed today. The patient is to remain touchdown weightbearing secondary to the integrity of her proximal femur. She is having difficulty with ambulating secondary to significant pain. I have advised the patient that I will not be in town for the next few days, but Dr. Beltrán is on-call. Should the medical service have any needs, they may call him, but the patient at this time needs participation in physical therapy and I would prefer transfer to assisted but she is resistant to this idea. Qualifiers: Encounter type: initial encounter Qualified Code(s): T84.51XA - Infection and inflammatory reaction due to internal right hip prosthesis, initial encounter (2) Morbid obesity with BMI of 45.0-49.9, adult: Attestations Medical Necessity Statement*: Per primary service Coding Level of Care Code Acute Sports Fitness And Wellness Director for Paolo [facility] Diagnoses Infection of right prosthetic hip joint T84.51XA Encounter type: initial encounter Morbid obesity with BMI of 45.0-49.9, adult E66.01; Z68.42
--- NOTE | 2022-05-22 13:40 | P.PN_ITS ---
Subjective Subjective: Today she is doing slightly better. She is tired. Right hip hurts. Otherwise doing okay. No trouble breathing. No chest pain. Medications: Reviewed: Yes Medication Review Details: Generic Name Dose Route Start Last Admin Trade Name Frecierra PRN Reason Stop Dose Admin Acetaminophen 650 mg 05/09/22 16:24 05/10/22 04:31 Acetaminophen 32 5 Mg Tablet PO 650 mg Q6H PRN Administration Mild/Mod Pain Or Temp >/= 101 Ascorbic Acid 500 mg 05/09/22 21:00 05/09/22 19:48 Ascorbic Acid 50 0 Mg Tablet PO 500 mg BEDTIME MICHELLE Administration Diphenhydramine HC l 25 mg 05/09/22 21:00 05/09/22 19:48 Diphenhydramine 25 Mg Capsule PO 25 mg BEDTIME MICHELLE Administration Ferrous Sulfate 325 mg 05/09/22 21:00 05/09/22 19:48 Ferrous Sulfate Ec 325 Mg Tablet PO 325 mg BEDTIME MICHELLE Administration Hydromorphone HCl 0.5 mg 05/10/22 07:16 05/10/22 07:20 Hydromorphone 1 Mg/Ml Inj 1 Ml IVP 0.5 mg ONCE PRN Administration For preop pain/an xiety Imipenem/Cilastati n Sodium 500 100 mls @ 200 mls /hr 05/09/22 16:45 05/10/22 17:24 mg/ Sodium Chlor izzy IV 200 mls/hr Q6H MICHELLE Administration Protocol Vancomycin/PEG/NAD A/Lysine/Water 1,250 mg in 250 m ls @ 250 mls/hr 05/10/22 00:00 05/10/22 00:21 Vancocin IV Infused Q12H MICHELLE Infusion Sodium Chloride 1,000 mls @ 30 ml s/hr 05/10/22 07:30 05/10/22 09:20 Sodium Chloride 0.9% IV 05/11/22 07:29 30 mls/hr .Q24H MICHELLE Administration Sodium Chloride 1,000 mls @ 100 m ls/hr 05/10/22 11:00 05/10/22 15:57 Sodium Chloride 0.9% IV 05/11/22 10:59 100 mls/hr .Q10H MICHELLE Administration Levothyroxine Sodi um 175 mcg 05/10/22 06:00 05/10/22 05:43 Levothyroxine 17 5 Mcg Tablet PO 175 mcg QAM MICHELLE Administration Multivitamins Ther apeutic 1 tab 05/09/22 21:00 05/09/22 19:48 Multivitamin The rapeutic Tablet PO 1 tab BEDTIME MICHELLE Administration Ondansetron HCl 4 mg 05/09/22 16:23 05/09/22 20:52 Ondansetron 2 Mg /Ml Sdv 2 Ml IVP 4 mg Q6H PRN Administration NAUSEA AND VOMITI NG Pantoprazole Sodiu m 40 mg 05/10/22 12:00 05/10/22 15:[address] 40 Mg Tablet PO 40 mg DAILY@12 MICHELLE Administration Tramadol HCl 100 mg 05/09/22 16:40 05/10/22 03:38 Tramadol 50 Mg T ablet PO 100 mg TID PRN Administration Pain Vitamin D 1,000 unit 05/09/22 21:00 05/09/22 19:48 Cholecalciferol (Vitamin D3) 1,000 Unit Tablet PO 1,000 unit BEDTIME MICHELLE Administration Zinc Gluconate 50 mg 05/09/22 21:00 05/09/22 19:48 Zinc Gluconate 5 0 Mg Tablet PO 50 mg BEDTIME MICHELLE Administration Vitals/I&O/Wt Last Vital Signs Temp 98.5 F 05/22/22 11:58 Pulse 80 05/22/22 11:58 Resp 18 05/22/22 12:50 BP 104/69 05/22/22 11:58 Pulse Ox 95 05/22/22 11:58 O2 Del Method 05/22/22 11:58 O2 Flow Rate 6 05/20/22 21:55 05/21/22 05/22/22 05/22/22 22:59 06:59 14:59 Intake Total 1450 / 3280 1150 / 4430 190 / 190 Output Total 700 / 700 450 / 1150 Balance 750 / 2580 700 / 3280 190 / 190 Weight last 48 hrs Weight 98.974 kg Weight 101.605 kg Physical Exam Const: COMMON NORMALS: patient oriented x3 and alert GENERAL APPEARANCE: cooperative ORIENTATION/CONSCIOUSNESS: Yes awake HENMT: COMMON NORMALS: oropharynx normal Neck/C-Spine: COMMON NORMALS: no JVD Resp: COMMON NORMALS: normal respiratory effort and clear to auscultation bilaterally AUSCULTATION: clear to auscultation bilaterally Cardio: COMMON NORMALS: no JVD, regular rhythm, S1 normal heart sound present, S2 normal heart sound present and No murmurs present (Cardio) RHYTHM: regular rhythm HEART SOUNDS: S1 normal heart sound present and S2 normal heart sound present GI: COMMON NORMALS: Normal to inspection, nondistended, normoactive bowel sounds present, Soft to palpation and non-tender PALPATION: Yes Soft to palpation Extremity: COMMON NORMALS: no joint enlargement and no pedal edema OTHER: Right hip dressing. Decreased erythema. Drain in place. Dressing wrapped over L knee. L foot dressing intact, no strikethrough or drainage. Neuro: COMMON NORMALS: patient oriented x3 and moves all extremities SENSORIUM/ORIENTATION: Yes alert Skin: COMMON NORMALS: no rashes or lesions noted GENERAL SKIN EXAM: no rashes or lesions noted Urinary Catheter Management: Frey: Cath Placed During This Visit: yes Reason for Continuing Indwelling Catheter: Other Urinary Catheter Date of Insertion: 05/09/22 Urinary Catheter Time of Insertion: 17:37 Data 05/22/22 10:10 05/22/22 05:10 A&P Assessment and plan (1) Infection of right prosthetic hip joint: RBC transfusion for hemoglobin 6.3 yesterday. This morning hemoglobin up to 7.2, rechecked again 7.7. Appears to have responded well to transfusion. Follow-up hemoglobin in the morning. Status post hardware explantation. Cement spacer in place. Limited weightbearing per orthopedics. Blood pressure soft, for now keep transiently increased prednisone dose at 15 mg . Continue IV antibiotic with cefazolin and ciprofloxacin. Continue with oxycodone and tramadol for pain. Arrangement for equipment that will be needed for continued care at home. Qualifiers: Encounter type: initial encounter Qualified Code(s): T84.51XA - Infection and inflammatory reaction due to internal right hip prosthesis, initial encounter (2) Staphylococcus aureus septicemia: Continue antibiotics as above. No further growth on repeat blood culture 05/12. (3) Abscess of left knee: Continue packing, IV antibiotic after discharge and follow-up with orthopedics in office. (4) Osteomyelitis of metatarsal: Had surgery 05/13. Suture removal at 2 weeks. Follow-up with podiatry, or if still here to be removed in the hospital. (5) Status post left knee replacement: (6) Rheumatoid arthritis: (7) Immunocompromised due to corticosteroids: (8) Chronic use of steroids: Plan 51-year-old lady with rheumatoid arthritis on immunosuppressants with a complicated infectious history as noted above in HPI. To summarize patient has been suffering from abscesses involving the left foot, left knee and right hip since December 2021. Additionally she has evidence of staph aureus septicemia with positive blood cultures on admission. She had staff aureus septicemia in December 2021 was well. 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 PICC line in place: X-ray confirmed again position with tip in SVC. Discomfort on PICC line touching superior lateral right breast. No erythema, swelling, bruising, no mass palpated. Adhesive dressing to help protect the area. Consider mammography after discharge. She would rather not switch to PICC line to the other side. Full code. Regular diet. Protonix for PUD prophylaxis. Discharge planning: Antibiotic infusions, PICC line care. Needed equipment. Attestations Medical Necessity Statement*: Continue admission for assessment management of multifocal musculoskeletal infections, supportive care after explantation of infected right DEMARCO, post discharge planning and arrangements. Coding Level of Care Code Acute Head Of Acquisitions for [facility] Katerine Diagnoses Infection of right prosthetic hip joint T84.51XA Encounter type: initial encounter Staphylococcus aureus septicemia A41.01 Abscess of left knee L02.416 Osteomyelitis of metatarsal M86.9 Status post left knee replacement Z96.652 Rheumatoid arthritis M06.9 Immunocompromised due to corticosteroids D84.821; T38.0X5A; Z79.52 Chronic use of steroids
--- NOTE | 2022-05-22 16:14 | PM.PN ---
Subjective Subjective: ID progress Notes, no new complaints awaiting surgery on Thursday with Dr. Otto working with resistance band to exrcise left leg leukocytosis resolved hemodynamically stable Medications: Reviewed: Yes Medication Review Details: Generic Name Dose Route Start Last Admin Trade Name Earleq PRN Reason Stop Dose Admin Acetaminophen 650 mg 05/09/22 16:24 05/10/22 04:31 Acetaminophen 32 5 Mg Tablet PO 650 mg Q6H PRN Administration Mild/Mod Pain Or Temp >/= 101 Ascorbic Acid 500 mg 05/09/22 21:00 05/09/22 19:48 Ascorbic Acid 50 0 Mg Tablet PO 500 mg BEDTIME MICHELLE Administration Diphenhydramine HC l 25 mg 05/09/22 21:00 05/09/22 19:48 Diphenhydramine 25 Mg Capsule PO 25 mg BEDTIME MICHELLE Administration Ferrous Sulfate 325 mg 05/09/22 21:00 05/09/22 19:48 Ferrous Sulfate Ec 325 Mg Tablet PO 325 mg BEDTIME MICHELLE Administration Hydromorphone HCl 0.5 mg 05/10/22 07:16 05/10/22 07:20 Hydromorphone 1 Mg/Ml Inj 1 Ml IVP 0.5 mg ONCE PRN Administration For preop pain/an xiety Imipenem/Cilastati n Sodium 500 100 mls @ 200 mls /hr 05/09/22 16:45 05/10/22 17:24 mg/ Sodium Chlor izzy IV 200 mls/hr Q6H MICHELLE Administration Protocol Vancomycin/PEG/NAD A/Lysine/Water 1,250 mg in 250 m ls @ 250 mls/hr 05/10/22 00:00 05/10/22 00:21 Vancocin IV Infused Q12H MICHELLE Infusion Sodium Chloride 1,000 mls @ 30 ml s/hr 05/10/22 07:30 05/10/22 09:20 Sodium Chloride 0.9% IV 05/11/22 07:29 30 mls/hr .Q24H MICHELLE Administration Sodium Chloride 1,000 mls @ 100 m ls/hr 05/10/22 11:00 05/10/22 15:57 Sodium Chloride 0.9% IV 05/11/22 10:59 100 mls/hr .Q10H MICHELLE Administration Levothyroxine Sodi um 175 mcg 05/10/22 06:00 05/10/22 05:43 Levothyroxine 17 5 Mcg Tablet PO 175 mcg QAM MICHELLE Administration Multivitamins Ther apeutic 1 tab 05/09/22 21:00 05/09/22 19:48 Multivitamin The rapeutic Tablet PO 1 tab BEDTIME MICHELLE Administration Ondansetron HCl 4 mg 05/09/22 16:23 05/09/22 20:52 Ondansetron 2 Mg /Ml Sdv 2 Ml IVP 4 mg Q6H PRN Administration NAUSEA AND VOMITI NG Pantoprazole Sodiu m 40 mg 05/10/22 12:00 05/10/22 15:[address] 40 Mg Tablet PO 40 mg DAILY@12 MICHELLE Administration Tramadol HCl 100 mg 05/09/22 16:40 05/10/22 03:38 Tramadol 50 Mg T ablet PO 100 mg TID PRN Administration Pain Vitamin D 1,000 unit 05/09/22 21:00 05/09/22 19:48 Cholecalciferol (Vitamin D3) 1,000 Unit Tablet PO 1,000 unit BEDTIME MICHELLE Administration Zinc Gluconate 50 mg 05/09/22 21:00 05/09/22 19:48 Zinc Gluconate 5 0 Mg Tablet PO 50 mg BEDTIME MICHELLE Administration Vitals/I&O/Wt Last Vital Signs Temp 98.3 F 05/25/22 16:00 Pulse 82 05/25/22 16:00 Resp 17 05/25/22 16:00 BP 113/75 05/25/22 16:00 Pulse Ox 98 05/25/22 16:00 O2 Del Method 05/24/22 15:23 O2 Flow Rate 6 05/22/22 20:00 05/25/22 05/25/22 05/25/22 06:59 14:59 22:59 Intake Total 50 / 990 890 / 890 Output Total 1800 / 1800 Balance -1750 / -810 890 / 890 Physical Exam Narrative: General: No acute distress, AO x3 HEENT: PERRLA, pupils bilaterally equal and reactive, pallors not present Chest: Normal vesicular breath sounds, no added sounds, equal good air entry bilaterally CVS: S1-S2 regular, no murmurs, no tachycardia, no gallops, no rubs Abdomen: Soft, nontender, no organomegaly, bowel sounds present Neuro: No focal deficits, no facial deformity, AO x3, power 5/5 in all limbs Extremities: surgical dressing present on the right hip with interrupted sutures underneath, mild tenderness, soft no erythema. Left knee posterior wound with packing in place. Urinary Catheter Management: Frey: Cath Placed During This Visit: yes Reason for Continuing Indwelling Catheter: Required Immobilization for Trauma or Surgery or Anesthesia Urinary Catheter Date of Insertion: 05/09/22 Urinary Catheter Time of Insertion: 17:37 Data 05/25/22 04:03 05/25/22 04:03 Micro: Microbiology 05/20/22 17:50 Gram Stain - Final Hip - #1 Anaerobic Culture - Preliminary Wound Culture - Final Staphylococcus aureus A&P Assessment and plan (1) Infection of right prosthetic hip joint: Qualifiers: Encounter type: initial encounter Qualified Code(s): T84.51XA - Infection and inflammatory reaction due to internal right hip prosthesis, initial encounter (2) Osteomyelitis of metatarsal: (3) Status post left knee replacement: (4) Abscess of left knee: (5) Staphylococcus aureus septicemia: Plan -Presumed prosthetic joint infection of the right hip.? s/p removal of existing components, placement of spacers. 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 - all cx with mssa -Continue Cefazolin 2g iv q8h for organism directed MSSA therapy for 8 weeks . (05/20-07/08/22) - Continue Cipro for total 6 weeks (05/10-06/21/22) for Psuedomonas metatarsal osteomyelitis -If all existing hardware cannot be removed (knee likely to be retained for now) will likely add rifampin down the line and will need chronic suppression for fci. to follow up with plans for knee retention vs removal upon dr. stovall's return. - blood cx clear as of 05/12 - PICC placed 05/14 will follow Attestations Medical Necessity Statement*: per admitting Coding Level of Care Code Acute Life Enrichment Assistant for g [facility] Diagnoses Infection of right prosthetic hip joint T84.51XA Encounter type: initial encounter Osteomyelitis of metatarsal M86.9 Status post left knee replacement Z96.652 Abscess of left knee L02.416 Staphylococcus aureus septicemia A41.01
[2022-05-22] MEDS: ferrous sulfate EC 325 mg Tablet PO (20:37)
[2022-05-22] MEDS: diphenhydrAMINE 25 mg Capsule PO (20:37)
[2022-05-22] MEDS: CELEcoxib 200 mg Capsule PO (22:42)
[2022-05-23] VITALS (10 sets, daily range): BP systolic 104–138; BP diastolic 66–84; PULSE 72–78; RESP 14–18; TEMP 36.6–36.9; O2SAT 95–97
[2022-05-23] MEDS: ceFAZolin 2,000 MG in sodium chloride 0.9% (plus) 50 ML 100 MG IV ×3 (02:20→17:27)
[2022-05-23 04:06] LABS: Basophils # 0.1 10^3/uL (0.0-0.1); Basophils % 0.7 %; Eosinophils # 0.4 10^3/uL (0.0-0.8); Eosinophils % 2.9 %; Hematocrit 22.7 % (37.0-47.0); Hemoglobin 7.2 g/dL (11.5-15.3); Lymphocytes # 2.6 10^3/uL (0.8-4.8); Lymphocytes % 17.3 %; Mean Corpuscular HGB Conc 31.7 g/dL (30.0-36.0); Mean Corpuscular Hemoglobin 29.4 pg (28.0-34.0); Mean Corpuscular Volume 92.7 fl (81-99); Mean Platelet Volume 10.7 fL (7.4-10.4); Monocytes # 1.7 10^3/uL (0.2-0.9); Monocytes % 11.6 %; Neutrophils # 9.73 10^3/uL (1.8-7.7); Neutrophils % 64.4 %; Nucleated Red Blood Cells % 0 %; Platelet Count 365 10^3/cmm (130-400); Red Blood Count 2.45 10^6/uL (4.1-5.3); Red Cell Distribution Width 17.3 % (12.1-15.1); White Blood Count 15.1 10^3/uL (4.0-10.0)
[2022-05-23 04:25] LABS: Anion Gap 11.2 (5-19); Blood Urea Nitrogen 9 mg/dL (6-20); Calcium 8.3 mg/dL (8.5-10.5); Carbon Dioxide 25 mmol/L (22-29); Chloride 107 mmol/L (98-107); Glomerular Filtration Rate 129.1 mL/min (90-130); Glucose 79 mg/dL (65-115); Osmolality Calculated 286 mOsm/kg (285-295); Potassium 4.2 mmol/L (3.5-5.1); Sodium 139 mmol/L (136-145)
[2022-05-23] MEDS: acetaminophen 500 mg Tablet 1000 MG PO ×3 (06:10→21:20)
[2022-05-23] MEDS: levothyroxine 175 mcg Tablet PO (06:11)
[2022-05-23] MEDS: ciprofloxacin 500 mg Tablet PO ×2 (10:04→21:20)
[2022-05-23] MEDS: predniSONE 10 mg Tablet 15 MG PO (10:04)
[2022-05-23] MEDS: duloxetine 30 mg Capsule PO (10:04)
[2022-05-23] MEDS: iron polysaccharide complex 150 mg Capsule PO ×2 (10:07→17:27)
[2022-05-23] MEDS: enoxaparin 40 mg/0.4 mL Syringe SUBCUT (10:14)
[2022-05-23] MEDS: CELEcoxib 200 mg Capsule PO ×2 (10:14→21:21)
[2022-05-23] MEDS: calcium carbonate 500 mg Chew Tablet 1000 MG PO ×2 (10:14→17:27)
[2022-05-23] MEDS: cyclobenzaprine 10 mg Tablet PO ×2 (10:26→23:15)
[2022-05-23] MEDS: oxyCODONE 5 mg IR Tab/Cap PO ×2 (10:26→23:15)
[2022-05-23] MEDS: mupirocin oint 22 gm 1 APPLIC NASAL ×2 (12:10→17:29)
[2022-05-23] MEDS: mupirocin oint 22 gm 1 APPLIC TOPICAL (12:10)
[2022-05-23] MEDS: pantoprazole DR 40 mg Tablet PO (12:11)
[2022-05-23] MEDS: chlorhexidine gluconate 0.12% Btl 473 mL 30 ML MUCOUS MEM ×3 (14:00→21:23)
--- NOTE | 2022-05-23 20:19 | P.PN_ITS ---
Subjective Subjective: She is overall doing okay, but has been in pain, has been having quite a bit of pain in her hip try to get up. No trouble breathing. Medications: Reviewed: Yes Vitals/I&O/Wt Last Vital Signs Temp 98.3 F 05/23/22 19:52 Pulse 73 05/23/22 19:52 Resp 15 05/23/22 19:52 BP 120/78 05/23/22 19:52 Pulse Ox 97 05/23/22 19:52 O2 Del Method 05/23/22 19:52 O2 Flow Rate 6 05/22/22 20:00 05/23/22 05/23/22 05/23/22 06:59 14:59 22:59 Intake Total 450 / 1050 810 / 810 240 / 1050 Output Total 1200 / 1200 1700 / 1700 Balance -750 / -150 810 / 810 -1460 / -650 Weight last 48 hrs Weight 98.974 kg Physical Exam Const: COMMON NORMALS: patient oriented x3 and alert GENERAL APPEARANCE: cooperative ORIENTATION/CONSCIOUSNESS: Yes awake HENMT: COMMON NORMALS: oropharynx normal Neck/C-Spine: COMMON NORMALS: no JVD Resp: COMMON NORMALS: normal respiratory effort and clear to auscultation bilaterally AUSCULTATION: clear to auscultation bilaterally Cardio: COMMON NORMALS: no JVD, regular rhythm, S1 normal heart sound present, S2 normal heart sound present and No murmurs present (Cardio) RHYTHM: regular rhythm HEART SOUNDS: S1 normal heart sound present and S2 normal heart sound present GI: COMMON NORMALS: Normal to inspection, nondistended, normoactive bowel sounds present, Soft to palpation and non-tender PALPATION: Yes Soft to palpation Extremity: COMMON NORMALS: no joint enlargement and no pedal edema OTHER: Right hip dressing. Some strikethrough. Decreased erythema. Drain removed. Dressing wrapped over L knee. L foot dressing intact, no strikethrough or drainage. Neuro: COMMON NORMALS: patient oriented x3 and moves all extremities SENSORIUM/ORIENTATION: Yes alert Skin: COMMON NORMALS: no rashes or lesions noted GENERAL SKIN EXAM: no rashes or lesions noted Urinary Catheter Management: Frey: Cath Placed During This Visit: yes Reason for Continuing Indwelling Catheter: Required Immobilization for Trauma or Surgery or Anesthesia Urinary Catheter Date of Insertion: 05/09/22 Urinary Catheter Time of Insertion: 17:37 Data 05/23/22 03:20 05/23/22 03:20 Micro: Microbiology 05/20/22 17:50 Gram Stain - Final Hip - #1 Tissue Culture - Final Staphylococcus aureus 05/20/22 17:50 Gram Stain - Final Hip - #1 Anaerobic Culture - Preliminary Wound Culture - Final Staphylococcus aureus A&P Assessment and plan (1) Infection of right prosthetic hip joint: In quite a bit of pain. We will add Dilaudid IV as needed so as to allow mobi lization in case of severe pain and not responding to oxycodone, tramadol, Celebrex. Hemoglobin 7.2. Recheck in the morning. Blood pressures with improvement, decrease prednisone to 10 mg. Has been requiring 2-3 people assist. Continue reassessment and discharge planning. At discharge continue antibiotics with cefazolin and ciprofloxacin. Status post hardware explantation. Cement spacer in place. Limited weightbearing per orthopedics. Qualifiers: Encounter type: initial encounter Qualified Code(s): T84.51XA - Infection and inflammatory reaction due to internal right hip prosthesis, initial encounter (2) Staphylococcus aureus septicemia: Continue antibiotics as above. No further growth on repeat blood culture 05/12. (3) Abscess of left knee: Continue packing, IV antibiotic after discharge and follow-up with orthopedics in office. (4) Osteomyelitis of metatarsal: Had surgery 05/13. Suture removal at 2 weeks. Follow-up with podiatry, or if still here to be removed in the hospital. (5) Status post left knee replacement: (6) Rheumatoid arthritis: (7) Immunocompromised due to corticosteroids: (8) Chronic use of steroids: Plan 51-year-old lady with rheumatoid arthritis on immunosuppressants with a complicated infectious history as noted above in HPI. To summarize patient has been suffering from abscesses involving the left foot, left knee and right hip since December 2021. Additionally she has evidence of staph aureus septicemia with positive blood cultures on admission. She had staff aureus septicemia in December 2021 was well. 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 PICC line in place: X-ray confirmed again position with tip in SVC. Discomfort on PICC line touching superior lateral right breast. No erythema, swelling, bruising, no mass palpated. Adhesive dressing to help protect the area. Consi jose mammography after discharge. She would rather not switch to PICC line to the other side. Full code. Regular diet. Protonix for PUD prophylaxis. Discharge planning: Antibiotic infusions, PICC line care. Needed equipment. Attestations Medical Necessity Statement*: Continue admission for assessment management following DEMARCO explantation with hip and hardware infection, reassessment of acute anemia, optimization of pain continued postdischarge planning and arrangements. Coding Level of Care Code Acute Land Development Project Manager for [facility] [place] Diagnoses Infection of right prosthetic hip joint T84.51XA Encounter type: initial encounter Staphylococcus aureus septicemia A41.01 Abscess of left knee L02.416 Osteomyelitis of metatarsal M86.9 Status post left knee replacement Z96.652 Rheumatoid arthritis M06.9 Immunocompromised due to corticosteroids D84.821; T38.0X5A; Z79.52 Chronic use of steroids
[2022-05-23] MEDS: ferrous sulfate EC 325 mg Tablet PO (21:20)
[2022-05-23] MEDS: diphenhydrAMINE 25 mg Capsule PO (21:20)
[2022-05-24] VITALS (7 sets, daily range): BP systolic 94–120; BP diastolic 60–77; PULSE 70–81; RESP 16–18; TEMP 36.7–36.9; O2SAT 18–96
[2022-05-24] MEDS: ceFAZolin 2,000 MG in sodium chloride 0.9% (plus) 50 ML 100 MG IV ×3 (02:39→18:03)
[2022-05-24 03:50] LABS: Basophils # 0.1 10^3/uL (0.0-0.1); Basophils % 0.8 %; Eosinophils # 0.5 10^3/uL (0.0-0.8); Eosinophils % 3.2 %; Hematocrit 23.6 % (37.0-47.0); Hemoglobin 7.3 g/dL (11.5-15.3); Lymphocytes # 2.3 10^3/uL (0.8-4.8); Lymphocytes % 14.3 %; Mean Corpuscular HGB Conc 30.9 g/dL (30.0-36.0); Mean Corpuscular Hemoglobin 28.7 pg (28.0-34.0); Mean Corpuscular Volume 92.9 fl (81-99); Mean Platelet Volume 10.4 fL (7.4-10.4); Monocytes # 1.5 10^3/uL (0.2-0.9); Monocytes % 9.6 %; Neutrophils # 10.89 10^3/uL (1.8-7.7); Neutrophils % 68.5 %; Nucleated Red Blood Cells % 0 %; Platelet Count 310 10^3/cmm (130-400); Red Blood Count 2.54 10^6/uL (4.1-5.3); Red Cell Distribution Width 17.1 % (12.1-15.1); White Blood Count 15.9 10^3/uL (4.0-10.0)
[2022-05-24 04:21] LABS: Anion Gap 8.9 (5-19); Blood Urea Nitrogen 11 mg/dL (6-20); Calcium 8.6 mg/dL (8.5-10.5); Carbon Dioxide 26 mmol/L (22-29); Chloride 104 mmol/L (98-107); Glomerular Filtration Rate 129.1 mL/min (90-130); Glucose 84 mg/dL (65-115); Osmolality Calculated 279 mOsm/kg (285-295); Potassium 3.9 mmol/L (3.5-5.1); Sodium 135 mmol/L (136-145)
[2022-05-24] MEDS: levothyroxine 175 mcg Tablet PO (05:21)
[2022-05-24] MEDS: acetaminophen 500 mg Tablet 1000 MG PO ×3 (05:21→21:11)
--- NOTE | 2022-05-24 08:58 | PC.SOCIAL ---
IMM update IMM updated with patient. Verbalized an understanding. Copy Pg 2 provided. Initialled, dated, timed, and placed in chart.
[2022-05-24] MEDS: enoxaparin 40 mg/0.4 mL Syringe SUBCUT (09:07)
[2022-05-24] MEDS: oxyCODONE 5 mg IR Tab/Cap PO ×2 (09:07→18:10)
[2022-05-24] MEDS: cyclobenzaprine 10 mg Tablet PO ×2 (09:08→18:10)
[2022-05-24] MEDS: calcium carbonate 500 mg Chew Tablet 1000 MG PO ×2 (09:08→18:03)
[2022-05-24] MEDS: ciprofloxacin 500 mg Tablet PO ×2 (09:08→21:11)
[2022-05-24] MEDS: duloxetine 30 mg Capsule PO (09:09)
[2022-05-24] MEDS: CELEcoxib 200 mg Capsule PO ×2 (09:09→21:14)
[2022-05-24] MEDS: iron polysaccharide complex 150 mg Capsule PO ×2 (09:10→18:03)
[2022-05-24] MEDS: predniSONE 10 mg Tablet PO (09:10)
[2022-05-24] MEDS: mupirocin oint 22 gm 1 APPLIC TOPICAL (09:14)
[2022-05-24] MEDS: chlorhexidine gluconate 0.12% Btl 473 mL 30 ML MUCOUS MEM ×4 (09:14→21:16)
[2022-05-24] MEDS: mupirocin oint 22 gm 1 APPLIC NASAL ×2 (09:30→18:12)
[2022-05-24] MEDS: pantoprazole DR 40 mg Tablet PO (13:28)
--- NOTE | 2022-05-24 19:15 | P.PN_ITS ---
Subjective Subjective: She is working with therapy. Pain is slightly better with combination of pain medication and muscle relaxer. She states is considered needing a rehabilitation prior to return home. Medications: Reviewed: Yes Vitals/I&O/Wt Last Vital Signs Temp 98.4 F 05/24/22 15:23 Pulse 81 05/24/22 15:23 Resp 18 05/24/22 18:10 BP 107/65 05/24/22 15:23 Pulse Ox 95 05/24/22 18:10 O2 Del Method 05/24/22 15:23 O2 Flow Rate 6 05/22/22 20:00 05/24/22 05/24/22 05/24/22 06:59 14:59 22:59 Intake Total 50 / 1750 770 / 770 120 / 890 Output Total 800 / 3100 Balance -750 / -1350 770 / 770 120 / 890 Physical Exam Narrative: Sitting up at edge of bed with PT. Const: COMMON NORMALS: patient oriented x3 and alert GENERAL APPEARANCE: cooperative ORIENTATION/CONSCIOUSNESS: Yes awake HENMT: COMMON NORMALS: oropharynx normal Neck/C-Spine: COMMON NORMALS: no JVD Resp: COMMON NORMALS: normal respiratory effort and clear to auscultation bilaterally AUSCULTATION: clear to auscultation bilaterally Cardio: COMMON NORMALS: no JVD, regular rhythm, S1 normal heart sound present, S2 normal heart sound present and No murmurs present (Cardio) RHYTHM: regular rhythm HEART SOUNDS: S1 normal heart sound present and S2 normal heart sound present GI: COMMON NORMALS: Normal to inspection, nondistended, normoactive bowel sounds present, Soft to palpation and non-tender PALPATION: Yes Soft to palpation Extremity: COMMON NORMALS: no joint enlargement and no pedal edema OTHER: Right hip dressing. Some strikethrough. Decreased erythema. Drain removed. Dressing wrapped over L knee. L foot dressing intact, no strikethrough or drainage. Neuro: COMMON NORMALS: patient oriented x3 and moves all extremities SENSORIUM/ORIENTATION: Yes alert Skin: COMMON NORMALS: no rashes or lesions noted GENERAL SKIN EXAM: no rashes or lesions noted Urinary Catheter Management: Frey: Cath Placed During This Visit: yes Reason for Continuing Indwelling Catheter: Required Immobilization for Trauma or Surgery or Anesthesia Urinary Catheter Date of Insertion: 05/09/22 Urinary Catheter Time of Insertion: 17:37 Data 05/24/22 03:34 05/24/22 03:34 Micro: Microbiology 05/20/22 17:50 Gram Stain - Final Hip - #1 Anaerobic Culture - Preliminary Wound Culture - Final Staphylococcus aureus 05/20/22 17:50 Gram Stain - Final Hip - #1 Tissue Culture - Final Staphylococcus aureus A&P Assessment and plan (1) Infection of right prosthetic hip joint: Better control with combination of muscle relaxer and oral. Before therapy. Still requiring significant assistance. She has considered needing rehabilitation prior to return home, case management working on arrangement. Blood count now remained steady. Recheck in the morning. Blood pressures with improvement, decreased prednisone to 10 mg. At discharge continue antibiotics with cefazolin and ciprofloxacin. Status post hardware explantation. Cement spacer in place. Limited weightbearing per orthopedics. Qualifiers: Encounter type: initial encounter Qualified Code(s): T84.51XA - Infection and inflammatory reaction due to internal right hip prosthesis, initial encounter (2) Staphylococcus aureus septicemia: Continue antibiotics as above. No further growth on repeat blood culture 05/12. (3) Abscess of left knee: Continue packing, IV antibiotic after discharge and follow-up with orthopedics in office. (4) Osteomyelitis of metatarsal: Had surgery 05/13. Suture removal at 2 weeks. Follow-up with podiatry, or if still here to be removed in the hospital. (5) Status post left knee replacement: (6) Rheumatoid arthritis: (7) Immunocompromised due to corticosteroids: (8) Chronic use of steroids: Plan 51-year-old lady with rheumatoid arthritis on immunosuppressants with a complicated infectious history as noted above in HPI. To summarize patient has been suffering from abscesses involving the left foot, left knee and right hip since December 2021. Additionally she has evidence of staph aureus septicemia with positive blood cultures on admission. She had staff aureus septicemia in December 2021 was well. 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 PICC line in place: X-ray confirmed again position with tip in SVC. Discomfort on PICC line touching superior lateral right breast. No erythema, swelling, bruising, no mass palpated. Adhesive dressing to help protect the area. Consider mammography after discharge. She would rather not switch to PICC line to the other side. Full code. Regular diet. Protonix for PUD prophylaxis. Discharge planning: Antibiotic infusions, PICC line care. Needed equipment. Attestations Medical Necessity Statement*: Continue admission for optimization of pain control, postoperative care, reassessment of anemia, and arrangements for rehabilitation due to requirement for significant assistance beyond what is possible at home currently prior to returning home. Coding Level of Care Code Acute Radiology Nurse for [facility] Diagnoses Infection of right prosthetic hip joint T84.51XA Encounter type: initial encounter Staphylococcus aureus septicemia A41.01 Abscess of left knee L02.416 Osteomyelitis of metatarsal M86.9 Status post left knee replacement Z96.652 Rheumatoid arthritis M06.9 Immunocompromised due to corticosteroids D84.821; T38.0X5A; Z79.52 Chronic use of steroids
[2022-05-24] MEDS: ferrous sulfate EC 325 mg Tablet PO (21:11)
[2022-05-24] MEDS: diphenhydrAMINE 25 mg Capsule PO (21:11)
[2022-05-25] VITALS (8 sets, daily range): BP systolic 104–130; BP diastolic 69–78; PULSE 69–85; RESP 16–18; TEMP 36.6–37; O2SAT 95–98
[2022-05-25] MEDS: ceFAZolin 2,000 MG in sodium chloride 0.9% (plus) 50 ML 100 MG IV ×3 (01:45→17:56)
[2022-05-25] MEDS: cyclobenzaprine 10 mg Tablet PO ×3 (02:19→19:49)
[2022-05-25 04:18] LABS: Basophils # 0.2 10^3/uL (0.0-0.1); Basophils % 1.4 %; Eosinophils # 0.6 10^3/uL (0.0-0.8); Eosinophils % 4.6 %; Hematocrit 24.6 % (37.0-47.0); Hemoglobin 7.7 g/dL (11.5-15.3); Lymphocytes # 2.4 10^3/uL (0.8-4.8); Lymphocytes % 17.7 %; Mean Corpuscular HGB Conc 31.3 g/dL (30.0-36.0); Mean Corpuscular Hemoglobin 29.6 pg (28.0-34.0); Mean Corpuscular Volume 94.6 fl (81-99); Mean Platelet Volume 10.2 fL (7.4-10.4); Monocytes # 1.4 10^3/uL (0.2-0.9); Monocytes % 10.2 %; Neutrophils # 8.12 10^3/uL (1.8-7.7); Neutrophils % 60.9 %; Nucleated Red Blood Cells % 0 %; Platelet Count 398 10^3/cmm (130-400); Red Cell Distribution Width 17.5 % (12.1-15.1); White Blood Count 13.3 10^3/uL (4.0-10.0)
[2022-05-25 04:44] LABS: Anion Gap 10.9 (5-19); Blood Urea Nitrogen 10 mg/dL (6-20); Calcium 8.3 mg/dL (8.5-10.5); Carbon Dioxide 25 mmol/L (22-29); Chloride 106 mmol/L (98-107); Glucose 110 mg/dL (65-115); Osmolality Calculated 286 mOsm/kg (285-295); Potassium 3.9 mmol/L (3.5-5.1); Sodium 138 mmol/L (136-145)
[2022-05-25 05:00] LABS: Slide Review Slide Review Perform
[2022-05-25] MEDS: acetaminophen 500 mg Tablet 1000 MG PO ×3 (05:12→20:53)
[2022-05-25] MEDS: levothyroxine 175 mcg Tablet PO (05:12)
[2022-05-25] MEDS: enoxaparin 40 mg/0.4 mL Syringe SUBCUT (10:15)
[2022-05-25] MEDS: calcium carbonate 500 mg Chew Tablet 1000 MG PO ×2 (10:15→17:56)
[2022-05-25] MEDS: duloxetine 30 mg Capsule PO (10:18)
[2022-05-25] MEDS: CELEcoxib 200 mg Capsule PO ×2 (10:18→20:52)
[2022-05-25] MEDS: iron polysaccharide complex 150 mg Capsule PO ×2 (10:18→17:56)
[2022-05-25] MEDS: predniSONE 10 mg Tablet PO (10:18)
[2022-05-25] MEDS: chlorhexidine gluconate 0.12% Btl 473 mL 30 ML MUCOUS MEM ×4 (10:20→20:55)
[2022-05-25] MEDS: mupirocin oint 22 gm 1 APPLIC NASAL ×2 (10:21→17:58)
[2022-05-25] MEDS: mupirocin oint 22 gm 1 APPLIC TOPICAL (10:21)
[2022-05-25] MEDS: oxyCODONE 5 mg IR Tab/Cap PO ×2 (10:29→18:08)
[2022-05-25] MEDS: ciprofloxacin 500 mg Tablet PO ×2 (10:29→20:53)
[2022-05-25] MEDS: pantoprazole DR 40 mg Tablet PO (14:20)
--- NOTE | 2022-05-25 19:12 | P.PN_ITS ---
Subjective Subjective: She is hurting in her hip, but otherwise no new symptoms. Her hip is hurting due to also lack of stability transferring bed, trying to set up, as she had had before with artificial hip joint. States she otherwise is doing okay. No shortness of breath. No chest pain. Medications: Reviewed: Yes Vitals/I&O/Wt Last Vital Signs Temp 98.3 F 05/25/22 16:00 Pulse 82 05/25/22 16:00 Resp 18 05/25/22 18:08 BP 113/75 05/25/22 16:00 Pulse Ox 95 05/25/22 18:08 O2 Del Method 05/24/22 15:23 O2 Flow Rate 6 05/22/22 20:00 05/25/22 05/25/22 05/25/22 06:59 14:59 22:59 Intake Total 50 / 990 890 / 890 240 / 1130 Output Total 1800 / 1800 Balance -1750 / -810 890 / 890 240 / 1130 Physical Exam Const: COMMON NORMALS: patient oriented x3 and alert GENERAL APPEARANCE: cooperative ORIENTATION/CONSCIOUSNESS: Yes awake HENMT: COMMON NORMALS: oropharynx normal Neck/C-Spine: COMMON NORMALS: no JVD Resp: COMMON NORMALS: normal respiratory effort and clear to auscultation bilaterally AUSCULTATION: clear to auscultation bilaterally Cardio: COMMON NORMALS: no JVD, regular rhythm, S1 normal heart sound present, S2 normal heart sound present and No murmurs present (Cardio) RHYTHM: regular rhythm HEART SOUNDS: S1 normal heart sound present and S2 normal heart sound present GI: COMMON NORMALS: Normal to inspection, nondistended, normoactive bowel sounds present, Soft to palpation and non-tender PALPATION: Yes Soft to palpation Extremity: COMMON NORMALS: no joint enlargement and no pedal edema OTHER: Right hip dressing. Some strikethrough. Decreased erythema. Drain removed. Dressing wrapped over L knee. L foot dressing intact, no strikethrough or drainage. Neuro: COMMON NORMALS: patient oriented x3 and moves all extremities SENSORIUM/ORIENTATION: Yes alert Skin: COMMON NORMALS: no rashes or lesions noted GENERAL SKIN EXAM: no rashes or lesions noted Urinary Catheter Management: Frey: Cath Placed During This Visit: yes Reason for Continuing Indwelling Catheter: Required Immobilization for Trauma or Surgery or Anesthesia Urinary Catheter Date of Insertion: 05/09/22 Urinary Catheter Time of Insertion: 17:37 Data 05/25/22 04:03 05/25/22 04:03 Micro: Microbiology 05/20/22 17:50 Gram Stain - Final Hip - #1 Anaerobic Culture - Preliminary Wound Culture - Final Staphylococcus aureus A&P Assessment and plan (1) Infection of right prosthetic hip joint: Continue IV antibiotics. Pain control. Pending arrangements for transfer to SNF for continued skilled care with continued IV antibiotic infusions. Blood count now remained steady. Recheck in the morning. Blood pressures with improvement, decreased prednisone to 10 mg. At discharge continue antibiotics with cefazolin and ciprofloxacin. Status post hardware explantation. Cement spacer in place. Limited weightbearing per orthopedics. Qualifiers: Encounter type: initial encounter Qualified Code(s): T84.51XA - Infection and inflammatory reaction due to internal right hip prosthesis, initial encounter (2) Osteomyelitis of metatarsal: Had surgery 05/13. Suture removal at 2 weeks. Follow-up with podiatry, or if still here to be removed in the hospital. (3) Status post left knee replacement: (4) Abscess of left knee: Continue packing, IV antibiotic after discharge and follow-up with orthopedics in office. (5) Staphylococcus aureus septicemia: Continue antibiotics as above. No further growth on repeat blood culture 05/12. (6) Rheumatoid arthritis: (7) Immunocompromised due to corticosteroids: (8) Chronic use of steroids: Plan 51-year-old lady with rheumatoid arthritis on immunosuppressants with a compl icated infectious history as noted above in HPI.? To summarize patient has been suffering from abscesses involving the left foot, left knee and right hip since December 2021.? Additionally she has evidence of staph aureus septicemia with positive blood cultures on admission.? She had staff aureus septicemia in December 2021 was well. # prosthetic joint infection of the right hip.? 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 PICC line in place: X-ray confirmed again position with tip in SVC.? Discomfort on PICC line touching superior lateral right breast.? No erythema, swelling, bruising, no mass palpated.? Adhesive dressing to help protect the area.? Consider mammography after discharge.? She would rather not switch to PICC line to the other side. Full code. Regular diet. Protonix for PUD prophylaxis. Discharge planning: SNF for rehabilitation, antibiotic infusions, PICC line care. Attestations Medical Necessity Statement*: Continue admission for continued IV antibiotic infusions for treatment of multifocal infection, status post explantation of right DEMARCO, pain control, arrangements for rehabilitation and further skilled care after discharge. Coding Level of Care Code Acute Environmental Services Project Manager for [facility] [employer] Exam Comprehensive Diagnoses Infection of right prosthetic hip joint T84.51XA Encounter type: initial encounter Osteomyelitis of metatarsal M86.9 Status post left knee replacement Z96.652 Abscess of left knee L02.416 Staphylococcus aureus septicemia A41.01 Rheumatoid arthritis M06.9 Immunocompromised due to corticosteroids D84.821; T38.0X5A; Z79.52 Chronic use of steroids
[2022-05-25] MEDS: diphenhydrAMINE 25 mg Capsule PO (20:53)
[2022-05-25] MEDS: ferrous sulfate EC 325 mg Tablet PO (20:54)
[2022-05-26] VITALS (10 sets, daily range): BP systolic 103–130; BP diastolic 67–79; PULSE 68–79; RESP 16–19; TEMP 36.6–36.7; O2SAT 93–96
[2022-05-26] MEDS: ceFAZolin 2,000 MG in sodium chloride 0.9% (plus) 50 ML 100 MG IV ×3 (01:17→17:25)
[2022-05-26] MEDS: oxyCODONE 5 mg IR Tab/Cap PO ×3 (01:53→20:44)
[2022-05-26 05:00] LABS: Basophils # 0.2 10^3/uL (0.0-0.1); Basophils % 1.3 %; Eosinophils # 0.7 10^3/uL (0.0-0.8); Eosinophils % 5.4 %; Hematocrit 26.5 % (37.0-47.0); Lymphocytes # 2.5 10^3/uL (0.8-4.8); Lymphocytes % 19.8 %; Mean Corpuscular HGB Conc 30.2 g/dL (30.0-36.0); Mean Platelet Volume 10.8 fL (7.4-10.4); Monocytes # 1.5 10^3/uL (0.2-0.9); Neutrophils # 7.02 10^3/uL (1.8-7.7); Neutrophils % 56.1 %; Nucleated Red Blood Cells % 0 %; Platelet Count 430 10^3/cmm (130-400); Red Blood Count 2.76 10^6/uL (4.1-5.3); Red Cell Distribution Width 17.7 % (12.1-15.1); White Blood Count 12.5 10^3/uL (4.0-10.0)
[2022-05-26 05:32] LABS: Slide Review Slide Review Perform
[2022-05-26] MEDS: acetaminophen 500 mg Tablet 1000 MG PO ×3 (05:57→20:43)
[2022-05-26] MEDS: levothyroxine 175 mcg Tablet PO (05:57)
[2022-05-26] MEDS: ciprofloxacin 500 mg Tablet PO ×2 (08:29→20:43)
[2022-05-26] MEDS: enoxaparin 40 mg/0.4 mL Syringe SUBCUT (08:29)
[2022-05-26] MEDS: iron polysaccharide complex 150 mg Capsule PO ×2 (08:29→17:25)
[2022-05-26] MEDS: calcium carbonate 500 mg Chew Tablet 1000 MG PO ×2 (08:29→17:25)
[2022-05-26] MEDS: cyclobenzaprine 10 mg Tablet PO ×2 (08:29→16:16)
[2022-05-26] MEDS: predniSONE 10 mg Tablet PO (08:30)
[2022-05-26] MEDS: mupirocin oint 22 gm 1 APPLIC TOPICAL (08:34)
[2022-05-26] MEDS: chlorhexidine gluconate 0.12% Btl 473 mL 30 ML MUCOUS MEM ×4 (08:34→20:44)
--- NOTE | 2022-05-26 10:10 | PC.SOCIAL ---
Imm update Imm updated at bedside, copy of page 2 provided. Patient verbalized understanding. Copy in chart initialed, dated and timed.
--- NOTE | 2022-05-26 10:50 | PC.NURSE ---
Patient refused multivitamins, senna, and celebrex this morning, see MAR for further details. Patient states, due to the different brand or strength it makes me very nauseated. I will resume my medication at home.
--- NOTE | 2022-05-26 11:48 | XRR_ITS ---
PROCEDURE INFORMATION: Exam: XR Pelvis Exam date and time: 05/26/2022 12:06 PM Age: 51 years old Clinical indication: Condition or disease; Joint replacement status; Right; Prior surgery; Surgery date: Post-operative (0-2 days); Surgery type: Status post removal of prosthesis, temporary spacer TECHNIQUE: Imaging protocol: Radiologic exam of the pelvis. Views: 1 or 2 view. COMPARISON: CR XR hip RT 1V wo/w pel [id number] 05/20/2022 9:37 PM FINDINGS: Bones/joints: Total hip arthroplasty bilateral. Temporary prosthesis with spacer on the right. No acute fracture and/or dislocation. No evidence of loosening. Degenerative changes are present within the visualized portions of the caudal aspect of the lumbar spine. Soft tissues: Unremarkable. XR/XR pelvis 1-2V* [id number] IMPRESSION: 1. Total hip arthroplasty bilateral. Temporary prosthesis with spacer on the right. No acute process. 2. No acute fracture and/or dislocation. No evidence of loosening.
[2022-05-26] MEDS: pantoprazole DR 40 mg Tablet PO (12:36)
--- NOTE | 2022-05-26 15:12 | P.PN_ITS ---
Subjective Subjective: Hospital course, labs appreciated. Seen with family at bedside. Patient states he is feeling better than when she met me last time. Patient is working with physical therapy but is limited secondary to her being scared and feeling a pop in her hip whenever she moves along with pain. Seen feeling also concern by physical therapy of pop sensation and found on ambulation and movement of the hip joint. Otherwise patient has remained hemodynamically stable and afebrile. Medications: Reviewed: Yes Vitals/I&O/Wt Last Vital Signs Temp 98.1 F 05/26/22 12:00 Pulse 79 05/26/22 12:00 Resp 16 05/26/22 12:00 BP 109/72 05/26/22 12:00 Pulse Ox 94 05/26/22 12:00 O2 Del Method 05/26/22 12:00 O2 Flow Rate 6 05/22/22 20:00 05/26/22 05/26/22 05/26/22 06:59 14:59 22:59 Intake Total 250 / 2190 290 / 290 Output Total 800 / 2300 Balance -550 / -110 290 / 290 Physical Exam Narrative: General: No acute distress, AO x3 HEENT: PERRLA, pupils bilaterally equal and reactive, pallors not present Chest: Normal vesicular breath sounds, no added sounds, equal good air entry bilaterally CVS: S1-S2 regular, no murmurs, no tachycardia, no gallops, no rubs Abdomen: Soft, nontender, no organomegaly, bowel sounds present Neuro: No focal deficits, no facial deformity, AO x3, power 5/5 in all limbs Extremities: surgical dressing present on the right hip with interrupted sutures underneath, mild tenderness, soft no erythema. Left knee posterior wound with packing in place. Urinary Catheter Management: Frey: Cath Placed During This Visit: yes Reason for Continuing Indwelling Catheter: Acute Urinary Retention or Obstruction Urinary Catheter Date of Insertion: 05/09/22 Urinary Catheter Time of Insertion: 17:37 Data 05/26/22 03:52 05/25/22 04:03 Micro: Microbiology 05/20/22 17:50 Gram Stain - Final Hip - #1 Anaerobic Culture - Preliminary Wound Culture - Final Staphylococcus aureus A&P Assessment and plan (1) Staphylococcus aureus septicemia: (2) Infection of right prosthetic hip joint: Qualifiers: Encounter type: initial encounter Qualified Code(s): T84.51XA - Infection and inflammatory reaction due to internal right hip prosthesis, initial encounter (3) Osteomyelitis of metatarsal: (4) Status post left knee replacement: (5) Abscess of left knee: (6) Rheumatoid arthritis: (7) Immunocompromised due to corticosteroids: (8) Chronic use of steroids: Plan 51-year-old lady with rheumatoid arthritis on immunosuppressants with a complicated infectious history as noted above in HPI. To summarize patient has been suffering from abscesses involving the left foot, left knee and right hip since December 2021. Additionally she has evidence of staph aureus septicemia with positive blood cultures on admission. She had staff aureus septicemia in December 2021 was well. 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 Post right hip implant removal and spacer implantation. Blood culture, wound culture results appreciated. Blood cultures so far negative. OR wound cultures growing MSSA like other culture results. Continue with IV cefazolin and oral ciprofloxacin. Physical therapy. Patient complaining of pop like feeling in the hip since the OR. Most likely secondary to placement of spacer. Patient is fairly concerned. Continue with physical therapy. X-ray hip. Discharge planning. Post 2 unit blood transfusion postoperatively. Hemoglobin since have remained stable. Protonix 40 mg oral daily. Continue with home dose of prednisone 10 mg daily. Continue with Celebrex 200 mg p.o. twice daily, Dilaudid as needed for pain along with tramadol. Discharge planning: Plan to discharge to SNF for further rehabitation and completion of IV antibiotic course while in close follow-up with multiple specialities. Patient is agreeable. Patient has been told has been accepted at [facility]. Awaiting authorization. Attestations Medical Necessity Statement*: Requires further hospitalization for management of prosthetic joint infections, MSSA bacteremia while safe discharge planning and physical therapy is sought. Time Spent in Patient Care: Greater than 35 minutes Coding Level of Care Code Acute Banquet Server for [facility] Diagnoses Staphylococcus aureus septicemia A41.01 Infection of right prosthetic hip joint T84.51XA Encounter type: initial encounter Osteomyelitis of metatarsal M86.9 Status post left knee replacement Z96.652 Abscess of left knee L02.416 Rheumatoid arthritis M06.9 Immunocompromised due to corticosteroids D84.821; T38.0X5A; Z79.52 Chronic use of steroids
[2022-05-26] MEDS: TRAMadol 50 mg Tablet 100 MG PO (16:16)
--- NOTE | 2022-05-26 16:56 | PC.OT ---
OT TREATMENT WITHHELD AT THIS TIME PENDING RESULTS OF PELVIC XRAY PT HAS BEEN COMPLAINING OF PAIN. PLAN TO RESUME TX TOLERATED BY PT.
--- NOTE | 2022-05-26 16:59 | P.PN_ITS ---
Subjective Subjective: Infectious disease progress note No new complaints today except continues to have pain at site of surgery. Feels that she can hear a pop when working with PT. Care plan has now transitioned to discharge to SNF which is likely more appropriate for the patient. Medications: Reviewed: Yes Medication Review Details: Generic Name Dose Route Start Last Admin Trade Name Earleq PRN Reason Stop Dose Admin Acetaminophen 650 mg 05/09/22 16:24 05/10/22 04:31 Acetaminophen 32 5 Mg Tablet PO 650 mg Q6H PRN Administration Mild/Mod Pain Or Temp >/= 101 Ascorbic Acid 500 mg 05/09/22 21:00 05/09/22 19:48 Ascorbic Acid 50 0 Mg Tablet PO 500 mg BEDTIME MICHELLE Administration Diphenhydramine HC l 25 mg 05/09/22 21:00 05/09/22 19:48 Diphenhydramine 25 Mg Capsule PO 25 mg BEDTIME MICHELLE Administration Ferrous Sulfate 325 mg 05/09/22 21:00 05/09/22 19:48 Ferrous Sulfate Ec 325 Mg Tablet PO 325 mg BEDTIME MICHELLE Administration Hydromorphone HCl 0.5 mg 05/10/22 07:16 05/10/22 07:20 Hydromorphone 1 Mg/Ml Inj 1 Ml IVP 0.5 mg ONCE PRN Administration For preop pain/an xiety Imipenem/Cilastati n Sodium 500 100 mls @ 200 mls /hr 05/09/22 16:45 05/10/22 17:24 mg/ Sodium Chlor izzy IV 200 mls/hr Q6H MICHELLE Administration Protocol Vancomycin/PEG/NAD A/Lysine/Water 1,250 mg in 250 m ls @ 250 mls/hr 05/10/22 00:00 05/10/22 00:21 Vancocin IV Infused Q12H MICHELLE Infusion Sodium Chloride 1,000 mls @ 30 ml s/hr 05/10/22 07:30 05/10/22 09:20 Sodium Chloride 0.9% IV 05/11/22 07:29 30 mls/hr .Q24H MICHELLE Administration Sodium Chloride 1,000 mls @ 100 m ls/hr 05/10/22 11:00 05/10/22 15:57 Sodium Chloride 0.9% IV 05/11/22 10:59 100 mls/hr .Q10H MICHELLE Administration Levothyroxine Sodi um 175 mcg 05/10/22 06:00 05/10/22 05:43 Levothyroxine 17 5 Mcg Tablet PO 175 mcg QAM MICHELLE Administration Multivitamins Ther apeutic 1 tab 05/09/22 21:00 05/09/22 19:48 Multivitamin The rapeutic Tablet PO 1 tab BEDTIME MICHELLE Administration Ondansetron HCl 4 mg 05/09/22 16:23 05/09/22 20:52 Ondansetron 2 Mg /Ml Sdv 2 Ml IVP 4 mg Q6H PRN Administration NAUSEA AND VOMITI NG Pantoprazole Sodiu m 40 mg 05/10/22 12:00 05/10/22 15:[address] 40 Mg Tablet PO 40 mg DAILY@12 MICHELLE Administration Tramadol HCl 100 mg 05/09/22 16:40 05/10/22 03:38 Tramadol 50 Mg T ablet PO 100 mg TID PRN Administration Pain Vitamin D 1,000 unit 05/09/22 21:00 05/09/22 19:48 Cholecalciferol (Vitamin D3) 1,000 Unit Tablet PO 1,000 unit BEDTIME MICHELLE Administration Zinc Gluconate 50 mg 05/09/22 21:00 05/09/22 19:48 Zinc Gluconate 5 0 Mg Tablet PO 50 mg BEDTIME MICHELLE Administration Vitals/I&O/Wt Last Vital Signs Temp 98.1 F 05/26/22 12:00 Pulse 79 05/26/22 12:00 Resp 16 05/26/22 12:00 BP 109/72 05/26/22 12:00 Pulse Ox 94 05/26/22 12:00 O2 Del Method 05/26/22 12:00 O2 Flow Rate 6 05/22/22 20:00 05/26/22 05/26/22 05/26/22 06:59 14:59 22:59 Intake Total 250 / 2190 290 / 290 Output Total 800 / 2300 Balance -550 / -110 290 / 290 Physical Exam Narrative: General: No acute distress, AO x3 HEENT: PERRLA, pupils bilaterally equal and reactive, pallors not present Chest: Normal vesicular breath sounds, no added sounds, equal good air entry bilaterally CVS: S1-S2 regular, no murmurs, no tachycardia, no gallops, no rubs Abdomen: Soft, nontender, no organomegaly, bowel sounds present Neuro: No focal deficits, no facial deformity, AO x3, power 5/5 in all limbs Extremities: surgical dressing present on the right hip Urinary Catheter Management: Frey: Cath Placed During This Visit: yes Reason for Continuing Indwelling Catheter: Acute Urinary Retention or Obstruction Urinary Catheter Date of Insertion: 05/09/22 Urinary Catheter Time of Insertion: 17:37 Data 05/26/22 03:52 05/25/22 04:03 Micro: Microbiology 05/20/22 17:50 Gram Stain - Final Hip - #1 Anaerobic Culture - Preliminary Wound Culture - Final Staphylococcus aureus A&P Assessment and plan (1) Infection of right prosthetic hip joint: Qualifiers: Encounter type: initial encounter Qualified Code(s): T84.51XA - Infection and inflammatory reaction due to internal right hip prosthesis, initial encounter (2) Osteomyelitis of metatarsal: (3) Status post left knee replacement: (4) Abscess of left knee: (5) Staphylococcus aureus septicemia: Plan - prosthetic joint infection of the right hip.? ALL OR CX WITH MSSA, s/p removal of exitsing hardware and placement of spacers on 05/20. 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 CX showing MSSA -Continue Cefazolin 2g iv q8h for organism directed MSSA therapy. Ciprofloxacin 500mg BID for Pseudomonas from metatarsal head cx/ foot osteomyelitis. (Of note, previsouly from 12/2021, cx with MSSA). 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
--- NOTE | 2022-05-26 18:32 | PC.NURSE ---
Xray results from hip posted, Dr. Beltrán aware of PT concern and patient concern with popping sound and pain with movement. Dr. Beltrán reports this is a normal finding and results from xray are in agreement.
[2022-05-26] MEDS: diphenhydrAMINE 25 mg Capsule PO (20:44)
[2022-05-26] MEDS: ferrous sulfate EC 325 mg Tablet PO (20:44)
--- NOTE | 2022-05-26 20:49 | PC.NURSE ---
Patient refused vitamin D3, vitamin C, zinc gluconate, and thera tablet. Dr Morgan was notified via telephone.
[2022-05-26] MEDS: CELEcoxib 200 mg Capsule PO (22:10)
[2022-05-27] MEDS: ceFAZolin 2,000 MG in sodium chloride 0.9% (plus) 50 ML 100 MG IV ×2 (01:27→09:56)
[2022-05-27 04:00] VITALS: BP 105/71; PULSE 69; RESP 19; TEMP 36.6; O2SAT 94
[2022-05-27 04:25] LABS: Basophils # 0.2 10^3/uL (0.0-0.1); Basophils % 1.2 %; Eosinophils # 0.7 10^3/uL (0.0-0.8); Eosinophils % 5.2 %; Hematocrit 27.6 % (37.0-47.0); Hemoglobin 8.3 g/dL (11.5-15.3); Lymphocytes # 2.5 10^3/uL (0.8-4.8); Lymphocytes % 18.4 %; Mean Corpuscular HGB Conc 30.1 g/dL (30.0-36.0); Mean Corpuscular Hemoglobin 28.8 pg (28.0-34.0); Mean Corpuscular Volume 95.8 fl (81-99); Mean Platelet Volume 10.5 fL (7.4-10.4); Monocytes # 1.6 10^3/uL (0.2-0.9); Monocytes % 12.1 %; Neutrophils # 7.81 10^3/uL (1.8-7.7); Neutrophils % 58.5 %; Nucleated Red Blood Cells % 0 %; Platelet Count 417 10^3/cmm (130-400); Red Blood Count 2.88 10^6/uL (4.1-5.3); Red Cell Distribution Width 17.5 % (12.1-15.1); White Blood Count 13.3 10^3/uL (4.0-10.0)
[2022-05-27] MEDS: levothyroxine 175 mcg Tablet PO (05:13)
[2022-05-27] MEDS: acetaminophen 500 mg Tablet 1000 MG PO ×2 (05:13→12:53)
[2022-05-27 05:44] LABS: Alanine Aminotransferase < 5 U/L (0-33); Albumin Level 2.6 g/dL (3.5-5.2); Alkaline Phosphatase 89 U/L (35-105); Anion Gap 13.1 (5-19); Aspartate Amino Transferase 15 U/L (0-32); Blood Urea Nitrogen 9 mg/dL (6-20); Calcium 8.5 mg/dL (8.5-10.5); Carbon Dioxide 25 mmol/L (22-29); Chloride 103 mmol/L (98-107); Globulin 2.9 g/dL (1.3-4.6); Glomerular Filtration Rate 129.1 mL/min (90-130); Glucose 88 mg/dL (65-115); Osmolality Calculated 282 mOsm/kg (285-295); Potassium 4.1 mmol/L (3.5-5.1); Sodium 137 mmol/L (136-145); Total Bilirubin 0.2 mg/dL (0.15-1.2); Total Protein 5.5 g/dL (6.6-8.7)
[2022-05-27 08:00] VITALS: BP 123/82; PULSE 78; RESP 18; TEMP 36.6; O2SAT 97
--- NOTE | 2022-05-27 09:40 | PM.DCS ---
Discharge Providers Date of Admission: 05/09/22 15:55 Date of Discharge: May 27, 2022 Attending Provider at Admission: Mendel Jacome MD Attending Provider at Discharge: Jean Carlos Osborne MD Consults: Orthopedics: Dr. Horan Hip Surgeon: Dr. Manriquez Podiatry: Dr. Cole/Dr. Herrera ID: Dr. Murphy Primary Care Provider: Kylie Stewart DO Diagnoses at Discharge Discharge Diagnosis (1) Infection of right prosthetic hip joint: Status: Acute Qualifiers: Encounter type: initial encounter Qualified Code(s): T84.51XA - Infection and inflammatory reaction due to internal right hip prosthesis, initial encounter (2) Osteomyelitis of metatarsal: Status: Acute (3) Status post left knee replacement: Status: Acute (4) Abscess of left knee: Status: Acute (5) Staphylococcus aureus septicemia: Status: Acute Reason for Visit Reason for Visit: 12273 Hospital Course Hospital Course 51-year-old lady with a past medical history of rheumatoid arthritis, on treatment with prednisone 10 mg p.o. daily, Actemra weekly, leflunomide admitted to the hospital on May 09, 2022 after presenting with left leg cellulitis and sepsis. Patient has been experiencing difficulties with bilateral leg since at least December 2021.? Per patient history and review of records, patient originally presented here in December 2021 with chief complaints of right leg swelling centered around her right hip.? She also had pain and swelling around her left knee.? MRI of the right hip at that time had shown postoperative changes relating to right total hip arthroplasty.? This was a joint replaced ~ 20 years ago.? A lobulated fluid collection was noted in the gluteus musculature around the right DEMARCO suspicious for infection.? She underwent IR guided right hip aspiration.? Drain was subsequently removed prior to discharge.? Culture showed MSSA.? She was additionally septicemic at that time and had multiple blood cultures positive for MSSA.? Urine culture was additionally positive for MSSA.? There were some concerning changes also at the left foot.? This was evaluated by podiatry she was found to have a complex foot infection with abscess for which she underwent incision and drainage.? She has had prior surgeries on her right foot 3 to 4 years ago which appears to be osteomyelitis and hardware infection in the right foot for which she needed removal of hardware and multiple surgical debridements.? Per patient history staff aureus was isolated from those cultures.? As far as she is aware she was not bacteremic at that time.? On this recent surgery in December 2021 she had abscess extending around the lateral aspect of the left fifth metatarsal and the MP joint. Staph bacteremia was attributed to the foot infection.? Discharge summary and progress notes from the time refer to the organism as MRSA, however review of susceptibilities shows that this was MSSA.? It appears the MRI was discussed with orthopedics at the time and changes were not thought to be extending into the joint. She was discharged with recommendations to continue 6 weeks of IV vancomycin.? PICC line was placed.? Patient followed up with wound care.? At the completion of 6 weeks (vancomycin, PICC line was removed.? 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 Patient states that she never had any significant improvement in her hip or knee.? During the course of her treatment her wound on the left foot healed, however she continued to have significant swelling around the left knee and right hip.? Patient had limited mobility at her left knee and right hip to the point where she was only able to get from bed to chair while previously she was able to ambulate.? More recently it got to the point where she had spontaneous drainage of pus from her left popliteal fossa which prompted her visit into the emergency room on May 09.? She reports being afebrile during the course of her illness, however this can can be clouded by the fact that she is on immunosuppressants including Actemra. On admission on May 09 she had a white blood cell count of 30,000.? CT of her left ankle showed prominent soft tissue edema and lytic changes in the fifth metatarsal head consistent with osteomyelitis.? She was taken to the OR on May 10, 2022 with no appreciable deep space abscess was encountered.? Small amount of purulence was encountered about the fifth metatarsal head at the location of an external wound.? Tissues along the fifth metatarsal head appeared healthy and stable in appearance without any signs of infection or abscess.? Cultures from the OR this time showed Pseudomonas aeruginosa.? This was unlikely to be the source of her sepsis.? CT of the knee subsequently performed on May 10 showed multiple fluid collections around the knee raising concern for multifocal abscesses.? Of note there is underlying prosthetic knee which was replaced approximately [address] of the right hip showed an extremely large right lateral hip fluid collection deep to the subcutaneous tissue involving the muscular layers and fascia. She was taken to the OR on May 12 and underwent I&D of the popliteal abscess of the left knee.? The wound is left open and currently packed with an ABD pad and Rehan wrap.? No deep communication to the prosthesis was noted.? She also underwent debridement of the deeps abscess over the right hip.? She had abundant purulent material beneath the fascia bushra extending down the anterolateral femur to the posterior capsule of the hip.? Cultures from the knee and hip are showing coag positive Staphylococcus thus far.? Her blood culture from admission has additionally shown MSSA on 05/09. During hospitalization patient was seen by ID, orthopedics, podiatry for multispecialty needs. As patient required extensive surgery transfer was sought to a higher center but was unsuccessful even after calling multiple hospitals because of lack of beds. Eventually patient was seen by Dr. Manriquez and she underwent high risk procedure of removal of infected total hip arthroplasty with placement of temporary cemented prosthesis on 05/20. Postprocedure she developed anemia for which she required 2 units of blood transfusion. Her hemoglobin has remained stable since transfusion. Patient's physical therapy has been limited because of pain control pre and postop which is managed through muscle relaxants. Because of requirement of extensive physical therapy, long antibiotic course for resolution of P JI and bacteremia patient was advised to discharge to SNF which at first she was reluctant but eventually agreed. Patient is being discharged to SNF for further rehabitation on IV cefazolin every 8 hourly and oral ciprofloxacin. She is to follow-up with ID clinic, Dr. Cole from podiatry, Dr. Otto from hip surgery, Dr. Horan from orthopedics. Physical Exam Narrative: General: No acute distress, AO x3 HEENT: PERRLA, pupils bilaterally equal and reactive, pallors not present Chest: Normal vesicular breath sounds, no added sounds, equal good air entry bilaterally CVS: S1-S2 regular, no murmurs, no tachycardia, no gallops, no rubs Abdomen: Soft, nontender, no organomegaly, bowel sounds present Neuro: No focal deficits, no facial deformity, AO x3, power 5/5 in all limbs Extremities: surgical dressing present on the right hip with interrupted sutures underneath, mild tenderness, soft no erythema. Left knee posterior wound with packing in place. Urinary Catheter Management: Frey: Cath Placed During This Visit: yes Reason for Continuing Indwelling Catheter: Acute Urinary Retention or Obstruction Urinary Catheter Date of Insertion: 05/09/22 Urinary Catheter Time of Insertion: 17:37 Discharge Data Studies Completed and Pending Completed Studies During Hospitalization Category Date Time Status CT ankle LT w con [id number] Stat Cat Scan 05/09/22 11:[address] hip RT wo/w con [id number] Routine Cat Scan 05/10/22 14:[address] knee LT w con [id number] Routine Cat Scan 05/10/22 14:11 Completed XR ankle LT min 3V* [id number] Stat Exams 05/09/22 10:08 Completed XR chest 1V portable [id number] Routine Exams 05/14/22 13:38 Completed XR chest 1V portable [id number] Routine Exams 05/18/22 18:16 Completed XR hip RT 1V wo/w pel [id number] Stat Exams 05/20/22 19:13 Completed XR hip RT 2-3V wo/w pel* [id number] Stat Exams 05/09/22 22:23 Completed XR knee LT 3V* [id number] Stat Exams 05/09/22 10:08 Completed XR pelvis 1-2V* [id number] Routine Exams 05/20/22 21:33 Completed XR pelvis 1-2V* [id number] Routine Exams 05/26/22 11:48 Completed XR pelvis 1-2V* [id number] Stat Exams 05/09/22 14:18 Completed MR foot LT wo/w con [id number] Stat MRI 05/12/22 09:00 Completed MR lower leg LT wo/w con [id number] Stat MRI 05/12/22 09:00 Completed Pathology: Surgical [PTH] Routine Pth 05/20/22 21:16 Completed CV. echo complete* [id number] Routine Ultrasound 05/14/22 17:58 Completed US soft tissue/extremity [id number] Stat Ultrasound 05/09/22 10:17 Completed US venous duplex lower extremity LT [CV venous duplex Ultrasound 05/09/22 09:[place] [id number]] Stat Pending at discharge Category Date Time Status Anaerobic Culture Routine Lab 05/20/22 17:50 Results Complete Blood Count w/Auto AM LABS Lab 05/28/22 04:00 Ordered Complete Blood Count w/Auto AM LABS Lab 05/29/22 04:00 Ordered Comprehensive Metabolic Panel AM LABS Lab 05/28/22 04:00 Ordered Comprehensive Metabolic Panel AM LABS Lab 05/29/22 04:00 Ordered SARS Covid-2 Antigen Routine Lab 05/27/22 08:13 Uncollected Wound Culture and Gram Stain Routine Lab 05/20/22 17:50 Results Radiology Impressions Ankle X-Ray 05/09/22 10:08 Impression: Soft tissue swelling over the medial and lateral malleolus and, in addition, over the dorsum of the left foot. Knee X-Ray 05/09/22 10:08 IMPRESSION: Stable appearance of the total knee arthroplasty. Resolution of the previous large joint effusion. Residual soft tissue edema Soft Tissue Ultrasound 05/09/22 10:17 IMPRESSION: Prominent edema in the anterior medial ankle soft tissue. Ankle CT 05/09/22 11:35 IMPRESSION: PROMINENT SOFT TISSUE EDEMA LYTIC CHANGE IN THE FIFTH METATARSAL HEAD CONSISTENT WITH OSTEOMYELITIS PLANTAR SUBCUTANEOUS ABSCESS OVERALL 2 CM IN SIZE WITH SMALL CENTRAL FLUID COLLECTION AT THE LEVEL OF THE FIFTH METATARSAL HEAD INCOMPLETELY IMAGED Hip/Pelvis X-Ray 05/09/22 22:23 IMPRESSION: No acute finding. Hip CT 05/10/22 14:11 IMPRESSION: 1. Extremely large right lateral hip fluid collection as described, which may be due to postop hematoma, seroma, or abscess. This is deep to the subcutaneous tissue and appears involve the muscular layers/fascia. 2. Right hip arthroplasty. Negative for acute fracture. Full details above. Knee CT 05/10/22 14:11 IMPRESSION: 1. Multiple fluid collections about the knee, which do raise strong concern for multifocal abscesses and may imply a septic joint. Advise orthopedic consultation. 2. Diffuse osteopenia with arthroplasty. No acute fracture or focal bone destruction identified. 3. Diffuse subcutaneous edema. 4. Skin lesion at the posterolateral knee, as on series 4, image 57. Advise correlation with direct visual exam. This may be due to scar, skin lesion, or area of postop change. Foot MRI 05/12/22 09:00 IMPRESSION: 1. Soft tissue ulcerations along the plantar and lateral fifth metatarsal head. These ulcerations extend to the cortex of the fifth metatarsal head. 2. There is edema but no enhancement associated with the plantar surface of the fifth metatarsal head measuring 3 x 8 mm. Even without enhancement suspicious for early osteomyelitis. 3. Diffuse cellulitis throughout the foot and in the soft tissues posterior to the talus and calcaneus. Lower Extremity MRI 05/12/22 09:00 IMPRESSION: 1. Quality of this examination is severely limited. 2. There is diffuse cellulitis but no focal fluid collections or enhancement to suggest an abscess. No marrow edema. 3. Small focal abscesses or osteomyelitis may not be evident due to the suboptimal quality of this examination. Chest X-Ray 05/18/22 18:16 IMPRESSION: 1. There is a right subclavian PICC line with tip in the superior vena cava. 2. No acute findings. Hip X-Ray 05/20/22 19:13 IMPRESSION: Interval revision of right total hip replacement with right lateral skin lan. Pelvis X-Ray 05/26/22 11:48 IMPRESSION: 1. Total hip arthroplasty bilateral. Temporary prosthesis with spacer on the right. No acute process. 2. No acute fracture and/or dislocation. No evidence of loosening. Microbiology 05/20/22 17:50 Hip - #1 Gram Stain - Final 05/20/22 17:50 Hip - #1 Anaerobic Culture - Preliminary 05/20/22 17:50 Hip - #1 Wound Culture - Final Staphylococcus aureus 05/20/22 17:50 Hip - #1 Gram Stain - Final 05/20/22 17:50 Hip - #1 Tissue Culture - Final Staphylococcus aureus 05/10/22 10:40 Other Source Gram Stain - Final 05/10/22 10:40 Other Source Anaerobic Culture - Final 05/10/22 10:40 Other Source Wound Culture - Final 05/10/22 10:40 Toe - Toe Anaerobic Culture - Final 05/10/22 10:40 Leg - Left Anaerobic Culture - Final 05/12/22 03:39 Blood Blood Culture - Final NO GROWTH AFTER 5 DAYS 05/12/22 03:37 Blood Blood Culture - Final NO GROWTH AFTER 5 DAYS 05/12/22 16:57 Hip - #1 Gram Stain - Final 05/12/22 16:57 Hip - #1 Wound Culture - Final Staphylococcus aureus 05/12/22 17:45 Knee - #1 Gram Stain - Final 05/12/22 17:45 Knee - #1 Wound Culture - Final Staphylococcus aureus 05/12/22 17:45 Knee - #1 Gram Stain - Final 05/12/22 17:45 Knee - #1 Abscess Culture - Final Staphylococcus aureus 05/14/22 00:25 Nose MRSA Culture - Final 05/09/22 10:25 Blood Blood Culture - Final Staphylococcus aureus 05/09/22 10:03 Blood Blood Culture - Final Staphylococcus aureus 05/10/22 10:40 Leg - Left Gram Stain - Final 05/10/22 10:40 Leg - Left Wound Culture - Final 05/10/22 10:40 Toe - Toe Gram Stain - Final 05/10/22 10:40 Toe - Toe Wound Culture - Final Pseudomonas aeruginosa 05/09/22 16:05 Toe - Wound Gram Stain - Final 05/09/22 16:05 Toe - Wound Wound Culture - Final Pseudomonas aeruginosa Laboratory Results WBC 13.3 10^3/uL (4.0-10.0) H 05/27/22 04:11 RBC 2.88 10^6/uL (4.1-5.3) L 05/27/22 04:11 Hgb 8.3 g/dL (11.5-15.3) L 05/27/22 04:11 Hct 27.6 % (37.0-47.0) L 05/27/22 04:11 MCV 95.8 fl (81-99) 05/27/22 04:11 MCH 28.8 pg (28.0-34.0) 05/27/22 04:11 MCHC 30.1 g/dL (30.0-36.0) 05/27/22 04:11 RDW 17.5 % (12.1-15.1) H 05/27/22 04:11 Plt Count 417 10^3/cmm (130-400) H 05/27/22 04:11 MPV 10.5 fL (7.4-10.4) H 05/27/22 04:11 Neut % (Auto) 58.5 % 05/27/22 04:11 Lymph % (Auto) 18.4 % 05/27/22 04:11 [place] % (Auto) 12.1 % 05/27/22 04:11 Eos % (Auto) 5.2 % 05/27/22 04:11 Baso % (Auto) 1.2 % 05/27/22 04:11 Neut # (Auto) 7.81 10^3/uL (1.8-7.7) H 05/27/22 04:11 Lymph # (Auto) 2.5 10^3/uL (0.8-4.8) 05/27/22 04:11 [place] # (Auto) 1.6 10^3/uL (0.2-0.9) H 05/27/22 04:11 Eos # (Auto) 0.7 10^3/uL (0.0-0.8) 05/27/22 04:11 Baso # (Auto) 0.2 10^3/uL (0.0-0.1) H 05/27/22 04:11 Nucleated RBC % (auto) 0 % 05/27/22 04:11 Nucleated RBCs # 0.0 /100WBC 05/27/22 04:11 ESR 11 mm/hr (0-15) 05/10/22 03:36 Sodium 137 mmol/L (136-145) 05/27/22 04:11 Potassium 4.1 mmol/L (3.5-5.1) 05/27/22 04:11 Chloride 103 mmol/L (98-107) 05/27/22 04:11 Carbon Dioxide 25 mmol/L (22-29) 05/27/22 04:11 Anion Gap 13.1 (5-19) 05/27/22 04:11 BUN 9 mg/dL (6-20) 05/27/22 04:11 Creatinine 0.5 mg/dL (0.5-0.9) 05/27/22 04:11 GFR Calculation 129.1 mL/min (90-130) 05/27/22 04:11 Glucose 88 mg/dL (65-115) 05/27/22 04:11 Estimat Average Glucose 103 05/15/22 04:02 Hemoglobin A1c 5.2 % (4.0-6.0) 05/15/22 04:02 Calculated Osmolality 282 mOsm/kg (285-295) L 05/27/22 04:11 Lactic Acid 1.4 mmol/L (0.5-2.2) 05/09/22 10:03 Calcium 8.5 mg/dL (8.5-10.5) 05/27/22 04:11 Total Bilirubin 0.2 mg/dL (0.15-1.2) 05/27/22 04:11 AST 15 U/L (0-32) 05/27/22 04:11 ALT < 5 U/L (0-33) 05/27/22 04:11 Alkaline Phosphatase 89 U/L (35-105) 05/27/22 04:11 C-Reactive Protein 42.3 mg/L (0.0-4.9) H 05/10/22 03:36 Total Protein 5.5 g/dL (6.6-8.7) L 05/27/22 04:11 Albumin 2.6 g/dL (3.5-5.2) L 05/27/22 04:11 Globulin 2.9 g/dL (1.3-4.6) 05/27/22 04:11 Triglycerides 130 mg/dL (0-150) 05/15/22 04:02 Cholesterol 117 mg/dL (0-200) 05/15/22 04:02 LDL Cholesterol, Calc 62 mg/dL (50-129) 05/15/22 04:02 Total VLDL Cholesterol 26 mg/dL (0-30) 05/15/22 04:02 HDL Cholesterol 29 mg/dL (60-100) L 05/15/22 04:02 Cholesterol/HDL Ratio 4.03 mg/dL (0.0-4.40) 05/15/22 04:02 Vitamin B12 1919 pg/mL (232-1245) H 05/15/22 04:02 Folate 9.8 ng/mL (4.8-37.3) 05/15/22 04:02 Random Cortisol 4.62 ug/dL (2.47-19.5) 05/11/22 03:22 Vancomycin Trough 11.5 ug/mL (10-15) 05/12/22 13:07 SARS-CoV-2 Ag (Rapid) negative (Negative) 05/14/22 13:30 Blood Type A Negative 05/21/22 20:42 Rho(D) Type Negative 05/21/22 20:42 Antibody Screen Negative 05/21/22 20:42 Crossmatch See Detail 05/21/22 20:42 Vitals Last Vital Signs Temp 97.8 F 05/27/22 08:00 Pulse 78 05/27/22 08:00 Resp 18 05/27/22 08:00 BP 123/82 05/27/22 08:00 Pulse Ox 97 05/27/22 08:00 O2 Del Method 05/27/22 08:00 O2 Flow Rate 6 05/22/22 20:00 Discharge Plan Discharge Patient Disposition: Home Condition: Stable Prescriptions: New sennosides-docusate sodium [Stool Softener-Laxative] 8.6-50 mg Tablet 2 tab PO BID Qty: 60 0RF pantoprazole 40 mg Tablet,Delayed Release (Dr/Ec) 40 mg PO DAILY@12 Qty: 30 0RF ciprofloxacin HCl 500 mg Tablet 500 mg PO BID@0900,2100 56 Days Qty: 112 0RF polysaccharide iron complex [Ferrex 150] 150 mg iron Capsule 150 mg PO BIDWM Qty: 60 0RF multivitamin with folic acid [Thera] 400 mcg Tablet 1 tab PO DAILY Qty: 30 0RF Continued tramadol 50 mg tablet 100 mg PO TID PRN (Reason: Pain) duloxetine [Cymbalta] 30 mg capsule,delayed release(DR/EC) 30 mg PO DAILY Qty: 30 0RF cyclobenzaprine 10 mg tablet 10 mg PO TID PRN (Reason: muscle spasm) Qty: 90 0RF (DME) walker adjustable platform with padded cuff See Rx Instructions .Route .MEDSUPPLY Qty: 1 0RF Rx Instructions: As directed prednisone 10 mg Tablet 10 mg PO DAILY@12 multivitamin Tablet 1 tab PO BEDTIME zinc acetate 50 mg (zinc) Capsule 50 mg PO BEDTIME Vitamin C 500 mg Tablet 500 mg PO BEDTIME Benadryl 25 mg Capsule 25 mg PO BEDTIME iron 325 mg (65 mg iron) Tablet 325 mg PO BEDTIME Vitamin D3 25 mcg (1,000 unit) Capsule 25 mcg PO BEDTIME levothyroxine 175 mcg tablet 175 mcg PO QAM lisinopril 5 mg tablet 5 mg PO DAILY@12 Held leflunomide 20 mg tablet 20 mg PO DAILY@12 Hold Instructions: Resume on 06/24/22. Actemra 162 mg/0.9 mL Syringe 162 mg SUBCUT Q7D Hold Instructions: Resume on 06/24/22. Rx Instructions: on fridays@19:00 Discontinued ibuprofen 800 mg Tablet 800 mg PO Q4H PRN (Reason: Pain) omeprazole 20 mg capsule,delayed release(DR/EC) 20 mg PO DAILY@12 Discharge Orders: Discharge Order (Routine); Ordered 05/27/22 Ordered By: Jean Carlos Osborne Other Ambulatory Orders: Blood Urea Nitrogen (Routine) Timeframe: 1 Week Facility: [facility] - Location: Lab - Main Lab Ordered By: Ravi Shetty Complete Blood Count w/Auto (Routine) Timeframe: 1 Week Location: Determined by Patient Ordered By: Ravi Shetty Creatinine (Routine) Timeframe: 1 Week Facility: [facility] - Location: Lab - Main Lab Ordered By: Ravi Shetty Liver Panel (Routine) Timeframe: 1 Week Facility: [facility] - Location: Lab - Main Lab Ordered By: Ravi Shetty DME: Commode (Order) Location: None Selected Ordered By: Ravi Shetty DME: Miscellaneous (Order) Location: None Selected Ordered By: Ravi Shetty DME: Wheelchair (Order) Location: None Selected Ordered By: Ravi Shetty Miscellaneous Procedure (Order) Location: None Selected Ordered By: Ravi Shetty Referrals: [facility] [Other] [facility] [Provider Group] - 07/03/22 11:00 am [facility] [place] [Outside] Aliza Otto MD [Physician] - 06/11/22 10:45 am Kylie Stewart DO [Primary Care Provider] - 06/03/22 11:30 am Zach Cole DPM [Physician] - 06/11/22 9:00 am Devang Horan MD [Physician] - 06/11/22 9:45 am Discharge Diet: Usual diet Discharge Activity: Resume usual activity Patient Instructions: Opioid Safety Activity Restrictions/Additional Instructions: Follow-up with multiple specialist on the set appointment date. Continue taking IV antibiotics as discussed. While you are on the antibiotics you will need to do CBC and CMP weekly. Please continue doing physical therapy as discussed in detail. PICC line care to be done weekly. Once you have completed the course of IV antibiotics PICC line should be removed. Discharge Attestations Time Spent in Discharge Care*: greater than 30 min Specific Discharge Activities: educating patient, discussing with pcp/other providers, discussing with complex case manager/social workers/dc planners, documenting/other paperwork and evaluating patient/reviewing data Status at Discharge: Cognitive status at discharge: cognitively intact, Behavioral status at discharge: cooperative, Functional status at discharge: other assisted ambulation, Overall status at discharge: patient is progressing back to baseline Quality Metrics Clinical Quality Measures [ No reported AMI, CVA or VTE this stay] Coding Level of Care Code Acute Chg FW DC note Diagnoses Infection of right prosthetic hip joint T84.51XA Encounter type: initial encounter Osteomyelitis of metatarsal M86.9 Status post left knee replacement Z96.652 Abscess of left knee L02.416 Staphylococcus aureus septicemia A41.01
[2022-05-27] MEDS: predniSONE 10 mg Tablet PO (09:49)
[2022-05-27] MEDS: enoxaparin 40 mg/0.4 mL Syringe SUBCUT (09:49)
[2022-05-27 09:50] VITALS: RESP 18
[2022-05-27] MEDS: oxyCODONE 5 mg IR Tab/Cap PO (09:50)
[2022-05-27] MEDS: sennosides-docusate Tablet 2 TAB PO (09:50)
[2022-05-27] MEDS: duloxetine 30 mg Capsule PO (09:50)
[2022-05-27] MEDS: iron polysaccharide complex 150 mg Capsule PO (09:51)
[2022-05-27] MEDS: ciprofloxacin 500 mg Tablet PO (09:57)
[2022-05-27] MEDS: cyclobenzaprine 10 mg Tablet PO (10:00)
[2022-05-27] MEDS: CELEcoxib 200 mg Capsule PO (10:00)
[2022-05-27 11:35] LABS: SARS Covid-2 Antigen negative (Negative)
[2022-05-27 12:00] VITALS: BP 115/76; PULSE 82; RESP 18; TEMP 36.8; O2SAT 98
--- NOTE | 2022-05-27 12:26 | P.PN_ITS ---
Subjective Subjective: Infectious disease progress note. Complains of pain at the hip, working with physical therapy. Plan to be discharged to residential today. White count is stable. Afebrile, hemodynamically stable. Medications: Reviewed: Yes Medication Review Details: Generic Name Dose Route Start Last Admin Trade Name Freq PRN Reason Stop Dose Admin Acetaminophen 650 mg 05/09/22 16:24 05/10/22 04:31 Acetaminophen 32 5 Mg Tablet PO 650 mg Q6H PRN Administration Mild/Mod Pain Or Temp >/= 101 Ascorbic Acid 500 mg 05/09/22 21:00 05/09/22 19:48 Ascorbic Acid 50 0 Mg Tablet PO 500 mg BEDTIME MICHELLE Administration Diphenhydramine HC l 25 mg 05/09/22 21:00 05/09/22 19:48 Diphenhydramine 25 Mg Capsule PO 25 mg BEDTIME MICHELLE Administration Ferrous Sulfate 325 mg 05/09/22 21:00 05/09/22 19:48 Ferrous Sulfate Ec 325 Mg Tablet PO 325 mg BEDTIME MICHELLE Administration Hydromorphone HCl 0.5 mg 05/10/22 07:16 05/10/22 07:20 Hydromorphone 1 Mg/Ml Inj 1 Ml IVP 0.5 mg ONCE PRN Administration For preop pain/an xiety Imipenem/Cilastati n Sodium 500 100 mls @ 200 mls /hr 05/09/22 16:45 05/10/22 17:24 mg/ Sodium Chlor izzy IV 200 mls/hr Q6H MICHELLE Administration Protocol Vancomycin/PEG/NAD A/Lysine/Water 1,250 mg in 250 m ls @ 250 mls/hr 05/10/22 00:00 05/10/22 00:21 Vancocin IV Infused Q12H MICHELLE Infusion Sodium Chloride 1,000 mls @ 30 ml s/hr 05/10/22 07:30 05/10/22 09:20 Sodium Chloride 0.9% IV 05/11/22 07:29 30 mls/hr .Q24H MICHELLE Administration Sodium Chloride 1,000 mls @ 100 m ls/hr 05/10/22 11:00 05/10/22 15:57 Sodium Chloride 0.9% IV 05/11/22 10:59 100 mls/hr .Q10H MICHELLE Administration Levothyroxine Sodi um 175 mcg 05/10/22 06:00 05/10/22 05:43 Levothyroxine 17 5 Mcg Tablet PO 175 mcg QAM MICHELLE Administration Multivitamins Ther apeutic 1 tab 05/09/22 21:00 05/09/22 19:48 Multivitamin The rapeutic Tablet PO 1 tab BEDTIME MICHELLE Administration Ondansetron HCl 4 mg 05/09/22 16:23 05/09/22 20:52 Ondansetron 2 Mg /Ml Sdv 2 Ml IVP 4 mg Q6H PRN Administration NAUSEA AND VOMITI NG Pantoprazole Sodiu m 40 mg 05/10/22 12:00 05/10/22 15:[address] 40 Mg Tablet PO 40 mg DAILY@12 MICHELLE Administration Tramadol HCl 100 mg 05/09/22 16:40 05/10/22 03:38 Tramadol 50 Mg T ablet PO 100 mg TID PRN Administration Pain Vitamin D 1,000 unit 05/09/22 21:00 05/09/22 19:48 Cholecalciferol (Vitamin D3) 1,000 Unit Tablet PO 1,000 unit BEDTIME MICHELLE Administration Zinc Gluconate 50 mg 05/09/22 21:00 05/09/22 19:48 Zinc Gluconate 5 0 Mg Tablet PO 50 mg BEDTIME MICHELLE Administration Vitals/I&O/Wt Last Vital Signs Temp 98.2 F 05/27/22 12:00 Pulse 82 05/27/22 12:00 Resp 18 05/27/22 12:00 BP 115/76 05/27/22 12:00 Pulse Ox 98 05/27/22 12:00 O2 Del Method 05/27/22 12:00 O2 Flow Rate 6 05/22/22 20:00 05/26/22 05/27/22 05/27/22 22:59 06:59 14:59 Intake Total 290 / 580 50 / 630 50 / 50 Output Total 875 / 875 Balance -585 / -295 50 / -245 50 / 50 Physical Exam Narrative: General: No acute distress, AO x3 HEENT: PERRLA, pupils bilaterally equal and reactive, pallors not present Chest: Normal vesicular breath sounds, no added sounds, equal good air entry bilaterally CVS: S1-S2 regular, no murmurs, no tachycardia, no gallops, no rubs Abdomen: Soft, nontender, no organomegaly, bowel sounds present Neuro: No focal deficits, no facial deformity, AO x3, power 5/5 in all limbs Extremities: surgical dressing present on the right hip Urinary Catheter Management: Frey: Cath Placed During This Visit: yes Reason for Continuing Indwelling Catheter: Acute Urinary Retention or Obstruction Urinary Catheter Date of Insertion: 05/09/22 Urinary Catheter Time of Insertion: 17:37 Data 05/27/22 04:11 05/27/22 04:11 Micro: Microbiology 05/20/22 17:50 Gram Stain - Final Hip - #1 Anaerobic Culture - Preliminary Wound Culture - Final Staphylococcus aureus A&P Assessment and plan (1) Infection of right prosthetic hip joint: Qualifiers: Encounter type: initial encounter Qualified Code(s): T84.51XA - Infection and inflammatory reaction due to internal right hip prosthesis, initial encounter (2) Osteomyelitis of metatarsal: (3) Status post left knee replacement: (4) Abscess of left knee: (5) Staphylococcus aureus septicemia: Plan - prosthetic joint infection of the right hip.? ALL OR CX WITH MSSA, s/p removal of exitsing hardware and placement of spacers on 05/20. 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 CX showing MSSA. Intra-Op findings with superficial extent of infection, joint capsule does not appear to be overtly involved. Wound over popliteal fossa currently healing well, shallow ulceration noted, good granulation tissue. awaiting Dr. 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 Ciprofloxacin 500mg BID for Pseudomonas from metatarsal head cx/ foot osteomyelitis. (Of note, previsouly from 12/2021, cx with MSSA). - Plan to continue iv Cefazolin for duration at least 8 weeks (05/20-07/08/22) - Continue Cipro for total 6 weeks (05/10-06/21/22) for Psuedomonas metatarsal osteomyelitis - PICC placed 05/14 Discharge to SNF today planned. Follow-up in ID clinic on July 03, 2021. While on cefazolin weekly labs recommended including WBC, LFT, creatinine, CRP. Attestations Medical Necessity Statement*: per admitting Coding Level of Care Code Acute Laminating Machine Feeder for Paolo Garcias Diagnoses Infection of right prosthetic hip joint T84.51XA Encounter type: initial encounter Osteomyelitis of metatarsal M86.9 Status post left knee replacement Z96.652 Abscess of left knee L02.416 Staphylococcus aureus septicemia A41.01
[2022-05-27] MEDS: pantoprazole DR 40 mg Tablet PO (12:53)
[2022-05-27 14:05] VITALS: BP 115/76; PULSE 82; RESP 18; TEMP 36.8; O2SAT 98
== END 2022-05-27 14:28 | disposition skilled nursing facility (03) | DRG 467 ==
LOC: ER 10:13 → MEDSURG 15:56
PROVIDERS: Internal Medicine; Orthopaedic Surgery; Physician Assistant; Podiatrist Foot & Ankle Surgery; Specialist; Student in an Organized Health Care Education/Training Program; Admitting Provider Internal Medicine; Emergency Provider Family Medicine; PCP Family Medicine; Visit Provider Student in an Organized Health Care Education/Training Program
PROC: 0J9R0ZX Drainage of Left Foot Subcutaneous Tissue and Fascia, Open Approach, Diagnostic (ICD-10-PCS; principal; 2022-05-10 08:00)
PROC: 0SB90ZZ Excision of Right Hip Joint, Open Approach (ICD-10-PCS; principal; 2022-05-12 15:30)
PROC: 0SB90ZZ Excision of Right Hip Joint, Open Approach (ICD-10-PCS; 2022-05-12 15:30)
PROC: 0SP90JZ Removal of Synthetic Substitute from Right Hip Joint, Open Approach (ICD-10-PCS; CPT 20680; principal; 2022-05-20 12:55)
DX: T84.51XA Infection and inflammatory reaction due to internal right hip prosthesis, initial encounter (principal); D62 Acute posthemorrhagic anemia; L03.116 Cellulitis of left lower limb; M86.9 Osteomyelitis, unspecified; L02.612 Cutaneous abscess of left foot; Z68.42 Body mass index [BMI] 45.0-49.9, adult; D84.821 Immunodeficiency due to drugs; L02.416 Cutaneous abscess of left lower limb; L97.423 Non-pressure chronic ulcer of left heel and midfoot with necrosis of muscle; L02.415 Cutaneous abscess of right lower limb; Y79.1 Therapeutic (nonsurgical) and rehabilitative orthopedic devices associated with adverse incidents; A49.01 Methicillin susceptible Staphylococcus aureus infection, unspecified site; M05.9 Rheumatoid arthritis with rheumatoid factor, unspecified; Z79.891 Long term (current) use of opiate analgesic; Z79.52 Long term (current) use of systemic steroids; I10 Essential (primary) hypertension; E03.9 Hypothyroidism, unspecified; M43.16 Spondylolisthesis, lumbar region; E66.01 Morbid (severe) obesity due to excess calories; Z88.0 Allergy status to penicillin; Z86.14 Personal history of Methicillin resistant Staphylococcus aureus infection; Z96.643 Presence of artificial hip joint, bilateral; Z96.652 Presence of left artificial knee joint
CPT/HCPCS: 36415; 36430; 36569; 36592; 51702; 71045; 72170; 73501; 73502; 73562; 73610; 73701; 73702; 73720; 76882; 80048; 80053; 80061; 80202; 82533; 82607; 82746; 83036; 83605; 85018; 85025; 85651; 86140; 86850; 86900; 86920; 87040; 87070; 87075; 87077; 87150; 87176; 87186; 87205; 87426; 87641; 88305; 93306; 93971; 96365; 96372; 96375; 97110; 97162; 97163; 97166; 97168; 97530; 97535; 99285; 99291; A9577; C1776; J0131; J0690; J0692; J0743; J1100; J1170; J1650; J1720; J1885; J2185; J2250; J2270; J2370; J2405; J2704; J2710; J3010; J3370; J3490; J7030; J7050; J7512; P9016; P9045; Q9967

== ENCOUNTER → 2022-06-06 09:41 | Outpatient (BNVA) | payer MEDICARE, SELFPAY | PROVIDERS: PCP Family Medicine; Visit Provider Orthopaedic Surgery | DX: L02.416 Cutaneous abscess of left lower limb (principal) | CPT/HCPCS: 99024 ==

== ENCOUNTER → 2022-06-10 08:46 | Outpatient (BNVA) | payer MEDICARE, OTHER, SELFPAY | PROVIDERS: PCP Family Medicine; Visit Provider Nurse Practitioner Family | DX: L02.416 Cutaneous abscess of left lower limb (principal); A41.01 Sepsis due to Methicillin susceptible Staphylococcus aureus; T38.0X5A Adverse effect of glucocorticoids and synthetic analogues, initial encounter; D84.821 Immunodeficiency due to drugs; Z79.52 Long term (current) use of systemic steroids; T84.51XA Infection and inflammatory reaction due to internal right hip prosthesis, initial encounter; Y83.8 Other surgical procedures as the cause of abnormal reaction of the patient, or of later complication, without mention of misadventure at the time of the procedure | CPT/HCPCS: 73502; 73560; 99024; 99214 ==

== ENCOUNTER 2022-06-27 11:54 | Outpatient (CLI) | payer MEDICARE, SELFPAY ==
[2022-06-27 12:15] LABS: Basophils # 0.1 10^3/uL (0.0-0.1); Basophils % 0.7 %; Eosinophils # 0.4 10^3/uL (0.0-0.8); Eosinophils % 2.3 %; Hematocrit 32.9 % (37.0-47.0); Hemoglobin 9.7 g/dL (11.5-15.3); Lymphocytes # 2.4 10^3/uL (0.8-4.8); Lymphocytes % 12.9 %; Mean Corpuscular HGB Conc 29.5 g/dL (30.0-36.0); Mean Corpuscular Hemoglobin 27.3 pg (28.0-34.0); Mean Corpuscular Volume 92.7 fl (81-99); Mean Platelet Volume 12.1 fL (7.4-10.4); Monocytes # 1.4 10^3/uL (0.2-0.9); Monocytes % 7.6 %; Neutrophils # 13.79 10^3/uL (1.8-7.7); Neutrophils % 73.4 %; Nucleated Red Blood Cells % 0 %; Platelet Count 481 10^3/cmm (130-400); Red Blood Count 3.55 10^6/uL (4.1-5.3); Red Cell Distribution Width 15.9 % (12.1-15.1); White Blood Count 18.8 10^3/uL (4.0-10.0)
[2022-06-27 12:19] LABS: Alanine Aminotransferase < 5 U/L (0-33); Albumin Level 3.2 g/dL (3.5-5.2); Alkaline Phosphatase 126 U/L (35-105); Anion Gap 14.6 (5-19); Aspartate Amino Transferase 14 U/L (0-32); Blood Urea Nitrogen 10 mg/dL (6-20); C Reactive Protein 21.9 mg/L (0.0-4.9); Calcium 9.3 mg/dL (8.5-10.5); Carbon Dioxide 23 mmol/L (22-29); Chloride 101 mmol/L (98-107); Globulin 3.7 g/dL (1.3-4.6); Glomerular Filtration Rate 129.1 mL/min (90-130); Glucose 93 mg/dL (65-115); Osmolality Calculated 279 mOsm/kg (285-295); Potassium 3.6 mmol/L (3.5-5.1); Sodium 135 mmol/L (136-145); Total Bilirubin 0.2 mg/dL (0.15-1.2); Total Protein 6.9 g/dL (6.6-8.7)
== END 2022-06-27 11:55 | disposition home or self-care (01) ==
LOC: LAB 11:55
PROVIDERS: PCP Family Medicine; Visit Provider Student in an Organized Health Care Education/Training Program
DX: N18.30 Chronic kidney disease, stage 3 unspecified (principal)
CPT/HCPCS: 80048; 80076; 85025; 86140

== ENCOUNTER 2022-07-02 12:37 | Outpatient (CLI) | payer MEDICARE, SELFPAY ==
[2022-07-02 13:26] LABS: Basophils # 0.2 10^3/uL (0.0-0.1); Basophils % 0.8 %; Eosinophils # 0.6 10^3/uL (0.0-0.8); Eosinophils % 2.9 %; Hematocrit 33.1 % (37.0-47.0); Lymphocytes # 2.9 10^3/uL (0.8-4.8); Lymphocytes % 14.8 %; Mean Corpuscular HGB Conc 30.2 g/dL (30.0-36.0); Mean Corpuscular Hemoglobin 27.5 pg (28.0-34.0); Mean Corpuscular Volume 91.2 fl (81-99); Mean Platelet Volume 12.1 fL (7.4-10.4); Monocytes # 1.4 10^3/uL (0.2-0.9); Neutrophils % 71.9 %; Nucleated Red Blood Cells % 0 %; Platelet Count 510 10^3/cmm (130-400); Red Blood Count 3.63 10^6/uL (4.1-5.3); Red Cell Distribution Width 15.9 % (12.1-15.1); White Blood Count 19.5 10^3/uL (4.0-10.0)
[2022-07-02 13:45] LABS: Alanine Aminotransferase < 5 U/L (0-33); Albumin Level 3.4 g/dL (3.5-5.2); Alkaline Phosphatase 120 U/L (35-105); Anion Gap 14.8 (5-19); Aspartate Amino Transferase 13 U/L (0-32); Blood Urea Nitrogen 15 mg/dL (6-20); C Reactive Protein 13.5 mg/L (0.0-4.9); Calcium 9.4 mg/dL (8.5-10.5); Carbon Dioxide 24 mmol/L (22-29); Chloride 101 mmol/L (98-107); Globulin 3.8 g/dL (1.3-4.6); Glucose 78 mg/dL (65-115); Osmolality Calculated 282 mOsm/kg (285-295); Potassium 3.8 mmol/L (3.5-5.1); Sodium 136 mmol/L (136-145); Total Bilirubin 0.2 mg/dL (0.15-1.2); Total Protein 7.2 g/dL (6.6-8.7)
== END 2022-07-02 12:38 | disposition home or self-care (01) ==
LOC: LAB 12:40
PROVIDERS: PCP Family Medicine; Visit Provider Student in an Organized Health Care Education/Training Program
DX: N18.30 Chronic kidney disease, stage 3 unspecified (principal)
CPT/HCPCS: 80048; 80076; 85025; 86140

== ENCOUNTER → 2022-07-03 12:30 | Outpatient (BNVA) | payer MEDICARE, SELFPAY | PROVIDERS: PCP Family Medicine; Visit Provider Student in an Organized Health Care Education/Training Program | DX: L02.416 Cutaneous abscess of left lower limb (principal); T84.51XA Infection and inflammatory reaction due to internal right hip prosthesis, initial encounter; Z96.652 Presence of left artificial knee joint; M86.9 Osteomyelitis, unspecified; X58.XXXA Exposure to other specified factors, initial encounter | CPT/HCPCS: 99212; 99214 ==

== ENCOUNTER 2022-07-08 13:08 | Outpatient (CLI) | payer MEDICARE, SELFPAY ==
[2022-07-08 13:36] LABS: Basophils # 0.1 10^3/uL (0.0-0.1); Basophils % 0.7 %; Eosinophils # 0.8 10^3/uL (0.0-0.8); Eosinophils % 5.1 %; Hemoglobin 10.3 g/dL (11.5-15.3); Lymphocytes # 2.5 10^3/uL (0.8-4.8); Lymphocytes % 16.7 %; Mean Corpuscular HGB Conc 29.4 g/dL (30.0-36.0); Mean Corpuscular Hemoglobin 27.5 pg (28.0-34.0); Mean Corpuscular Volume 93.3 fl (81-99); Mean Platelet Volume 12.3 fL (7.4-10.4); Monocytes # 1.3 10^3/uL (0.2-0.9); Monocytes % 8.6 %; Neutrophils # 10.08 10^3/uL (1.8-7.7); Neutrophils % 66.5 %; Nucleated Red Blood Cells % 0 %; Platelet Count 434 10^3/cmm (130-400); Red Blood Count 3.75 10^6/uL (4.1-5.3); White Blood Count 15.1 10^3/uL (4.0-10.0)
[2022-07-08 14:02] LABS: Alanine Aminotransferase < 5 U/L (0-33); Albumin Level 3.5 g/dL (3.5-5.2); Alkaline Phosphatase 139 U/L (35-105); Anion Gap 17.5 (5-19); Aspartate Amino Transferase 15 U/L (0-32); Blood Urea Nitrogen 9 mg/dL (6-20); C Reactive Protein 12.5 mg/L (0.0-4.9); Calcium 9.1 mg/dL (8.5-10.5); Carbon Dioxide 24 mmol/L (22-29); Chloride 103 mmol/L (98-107); Globulin 2.8 g/dL (1.3-4.6); Glucose 108 mg/dL (65-115); Osmolality Calculated 289 mOsm/kg (285-295); Potassium 4.5 mmol/L (3.5-5.1); Sodium 140 mmol/L (136-145); Total Bilirubin 0.2 mg/dL (0.15-1.2); Total Protein 6.3 g/dL (6.6-8.7)
== END 2022-07-08 13:09 | disposition home or self-care (01) ==
LOC: LAB 13:11
PROVIDERS: PCP Family Medicine; Visit Provider Student in an Organized Health Care Education/Training Program
DX: T84.51XA Infection and inflammatory reaction due to internal right hip prosthesis, initial encounter (principal); A49.02 Methicillin resistant Staphylococcus aureus infection, unspecified site; X58.XXXA Exposure to other specified factors, initial encounter
CPT/HCPCS: 80048; 80076; 85025; 86140

== ENCOUNTER → 2022-07-11 14:38 | Outpatient (BNVA) | payer MEDICARE, SELFPAY | PROVIDERS: PCP Family Medicine; Visit Provider Student in an Organized Health Care Education/Training Program | DX: T84.51XA Infection and inflammatory reaction due to internal right hip prosthesis, initial encounter (principal); L02.416 Cutaneous abscess of left lower limb; Z96.652 Presence of left artificial knee joint; M86.9 Osteomyelitis, unspecified; X58.XXXA Exposure to other specified factors, initial encounter | CPT/HCPCS: 99024; 99212 ==

== ENCOUNTER → 2022-07-14 13:21 | Outpatient (BNVA) | payer MEDICARE, SELFPAY | PROVIDERS: PCP Family Medicine; Visit Provider Specialist | DX: T84.51XD Infection and inflammatory reaction due to internal right hip prosthesis, subsequent encounter (principal); Y79.2 Prosthetic and other implants, materials and accessory orthopedic devices associated with adverse incidents; Z96.652 Presence of left artificial knee joint; M06.9 Rheumatoid arthritis, unspecified | CPT/HCPCS: 73502; 73562; 93970; 99213; 99214 ==

== ENCOUNTER 2022-07-14 15:13 | Outpatient (CLI) | payer MEDICARE, SELFPAY ==
--- NOTE | 2022-07-14 15:30 | USCV_ITS ---
Kristine Barbosa Age: 51 Gender: F : 1970 Exam Date: 07/14/2022 15:28 Ordering Phys: Devang Horan MD Technologist: Mey Gonzales Exam Location: [facility] [place] Indication: recent surgery on hip HISTORY: Recent Surg PROCEDURES: The venous duplex Doppler examination of both lower extremities was performed in the standard fashion. The following venous structures were evaluated: common femoral vein, profunda vein, proximal portion of the greater saphenous vein, superficial femoral vein, and the popliteal vein. In addition, the posterior tibial and peroneal trunk were evaluated. Serial compression, augmentation maneuvers, and spectral Doppler flow evaluation were performed. FINDINGS: RT Profunda and FV is partial occluded. Distal FV is partial and Rt POP and Peroneal is occluded Lt lower extremity: LT CFV and Prox Femoral vein are partial occluded. Distal femoral vein through the popliteal and Peroneal veins are occluded. CONCLUSIONS Bilateral partial and occluded lower extremity DVT. Dr. Mildred Garcia DO (Electronically Signed) Final Date: 14 July 2022 16:21 S
== END 2022-07-14 15:14 | disposition home or self-care (01) ==
LOC: RAD 15:13
PROVIDERS: PCP Family Medicine; Referring Provider Student in an Organized Health Care Education/Training Program; Visit Provider Orthopaedic Surgery
DX: T81.9XXA Unspecified complication of procedure, initial encounter (principal); I82.403 Acute embolism and thrombosis of unspecified deep veins of lower extremity, bilateral; L02.416 Cutaneous abscess of left lower limb; Z96.652 Presence of left artificial knee joint; R60.0 Localized edema; T84.51XD Infection and inflammatory reaction due to internal right hip prosthesis, subsequent encounter; Y79.2 Prosthetic and other implants, materials and accessory orthopedic devices associated with adverse incidents; M06.9 Rheumatoid arthritis, unspecified
CPT/HCPCS: 93970; 99213; 99214

== ENCOUNTER 2022-07-14 15:58 | Emergency (ER) | payer MEDICARE, SELFPAY ==
[2022-07-14 16:19] VITALS: BP 120/78; PULSE 87; RESP 16; TEMP 36.7; O2SAT 99
--- NOTE | 2022-07-14 17:01 | W.ED.GENADLT ---
HPI - General Adult General: Chief complaint: General Medical Stated complaint: Wade Sent for clotting Time Seen by Provider: 07/14/22 16:25 History of Present Illness: Patient comes in from the clinic where she had an ultrasound done which showed DVT in bilateral lower extremities. Patient states she recently had surgery on her right hip as well as her left knee and has been immobile since then. She had an ultrasound done today that showed bilateral DVTs and she was recommended to the emergency department for treatment. The patient denies any chest pain, or shortness of breath. Her vital signs are within normal limits. Associated symptoms: Deny chest pain, dyspnea, headache(s), nausea, rash, palpitations or vomiting Review of Systems Const: Denies: fever(s) or body aches Eyes: Denies: change in vision or blurry vision ENMT: Denies: throat pain or odynophagia Card: Denies: chest pain or palpitations Resp: Denies: dyspnea or productive cough GI: Denies: abdominal pain, nausea or vomiting : Denies: flank pain or dysuria Musc: Denies: neck pain or back pain Skin/Breast: Denies: rash or pruritus Neuro: Denies: headache(s) or numbness in extremities Psych: Denies: anxiety or change in appetite Endo: Denies: polyuria or excessive sweating PFSH ED PFSH: Medical History Bullae Chronic steroid use Chronic use of steroids High risk medication use Hypertension Hypothyroidism Immunization counseling Leukocytosis Rheumatoid arthritis Rheumatoid arthritis flare Seropositive rheumatoid arthritis of multiple sites Spondylolisthesis at L4-L5 level Surgical History History of foot surgery x5 right History of hand surgery 2right hand, 1 left hand History of hip replacement, total bilateral Status post incision and drainage Status post left knee replacement Family History Other CAD (coronary artery disease) Cancer Hyperlipidemia Hypertension Denies family history of Rheumatoid arthritis Diabetes Lupus Chronic kidney disease (CKD) Lung disease Stroke Social History Smoking and tobacco status: never smoked History of recent travel: No Physical Exam Const: COMMON NORMALS: no acute distress, patient oriented x3, healthy appearing and alert HENMT: COMMON NORMALS: normocephalic and atraumatic HEAD & SCALP: normocephalic and atraumatic Eye: COMMON NORMALS: Equal, round and reactive pupils present and EOMs intact bilaterally PUPIL: Yes Equal, round and reactive pupils present Neck/C-Spine: COMMON NORMALS: full ROM and supple Resp: COMMON NORMALS: normal respiratory effort, No retractions and No use of accessory muscles Cardio: COMMON NORMALS: regular rate and regular rhythm RATE: regular rate RHYTHM: regular rhythm GI: COMMON NORMALS: Normal to inspection, nondistended, normoactive bowel sounds present, Soft to palpation and non-tender PALPATION: Yes Soft to palpation Back/Pelvis: COMMON NORMALS: thoracic and lumbar spine normal to inspection and no thoracic nor lumbar tenderness Extremity: OTHER: Pitting edema of bilateral lower extremities Neuro: COMMON NORMALS: patient oriented x3 SENSORIUM/ORIENTATION: Yes alert Psych: COMMON NORMALS: mental status grossly normal and cooperative Skin: COMMON NORMALS: no rashes or lesions noted and no wounds GENERAL SKIN EXAM: no rashes or lesions noted Course Vital Signs: Vital signs: Vital Signs Temperature 98.0 F 07/14/22 16:19 Pulse Rate 87 07/14/22 16:19 Respiratory Rate 16 07/14/22 16:19 Blood Pressure 120/78 07/14/22 16:19 Pulse Oximetry 99 07/14/22 16:19 [facility] - General Adult Medical Decision Making Patient comes in from the clinic where she had an ultrasound done which showed DVT in bilateral lower extremities. Patient states she recently had surgery on her right hip as well as her left knee and has been immobile since then. She had an ultrasound done today that showed bilateral DVTs and she was recommended to the emergency department for treatment. The patient denies any chest pain, or shortness of breath. Her vital signs are within normal limits. We will start her on Eliquis, and discharged with precautions to return for worsening or changing symptoms. Discharge Plan Discharge Patient Disposition: Home Clinical Impression: DVT (deep venous thrombosis) Condition: Stable Prescriptions: New Eliquis DVT-PE Treat 30D Start 5 mg (74 tabs) tablets,dose pack 5 mg PO BID Qty: 74 0RF No Action tramadol 50 mg tablet 100 mg PO TID PRN (Reason: Pain) duloxetine [Cymbalta] 30 mg capsule,delayed release(DR/EC) 30 mg PO DAILY Qty: 30 0RF cyclobenzaprine 10 mg tablet 10 mg PO TID PRN (Reason: muscle spasm) Qty: 90 0RF (DME) walker adjustable platform with padded cuff See Rx Instructions .Route .MEDSUPPLY Qty: 1 0RF Rx Instructions: As directed rifampin 300 mg capsule 300 mg PO BID 30 Days Qty: 60 0RF hydrocodone-acetaminophen 5-325 mg tablet 1 tab PO Q6H PRN (Reason: pain) 10 Days Qty: 40 0RF ciprofloxacin HCl 500 mg tablet 500 mg PO BID 42 Days Qty: 84 0RF furosemide [Lasix] 40 mg tablet 40 mg PO DAILY 7 Days Qty: 7 0RF prednisone 10 mg Tablet 10 mg PO DAILY@12 multivitamin Tablet 1 tab PO BEDTIME zinc acetate 50 mg (zinc) Capsule 50 mg PO BEDTIME Vitamin C 500 mg Tablet 500 mg PO BEDTIME Benadryl 25 mg Capsule 25 mg PO BEDTIME iron 325 mg (65 mg iron) Tablet 325 mg PO BEDTIME Vitamin D3 25 mcg (1,000 unit) Capsule 25 mcg PO BEDTIME levothyroxine 175 mcg tablet 175 mcg PO QAM leflunomide 20 mg tablet 20 mg PO DAILY@12 Hold Instructions: Resume on 06/24/22. lisinopril 5 mg tablet 5 mg PO DAILY@12 Actemra 162 mg/0.9 mL Syringe 162 mg SUBCUT Q7D Hold Instructions: Resume on 06/24/22. Rx Instructions: on fridays@19:00 pantoprazole 40 mg Tablet,Delayed Release (Dr/Ec) 40 mg PO DAILY@12 Qty: 30 0RF Thera 400 mcg Tablet 1 tab PO DAILY Qty: 30 0RF Ferrex 150 150 mg iron Capsule 150 mg PO BIDWM Qty: 60 0RF Stool Softener-Laxative 8.6-50 mg Tablet 2 tab PO BID Qty: 60 0RF Discharge Orders: Discharge ED (Routine); Ordered 07/14/22 Ordered By: Jamar Alexander Referrals: Kylie Stewart DO [Primary Care Provider] - Patient Instructions: Apixaban (By mouth), Deep Vein Thrombosis (ED) Coding Level of Care Code ED Sort Operations Supervisor for Chg Katerine
== END 2022-07-14 17:21 | disposition home or self-care (01) ==
PROVIDERS: Emergency Provider Emergency Medicine; PCP Family Medicine
DX: I82.403 Acute embolism and thrombosis of unspecified deep veins of lower extremity, bilateral (principal); I10 Essential (primary) hypertension; Z96.643 Presence of artificial hip joint, bilateral; Z96.652 Presence of left artificial knee joint; T84.51XD Infection and inflammatory reaction due to internal right hip prosthesis, subsequent encounter; Y79.2 Prosthetic and other implants, materials and accessory orthopedic devices associated with adverse incidents
CPT/HCPCS: 73502; 73562; 93970; 99213; 99214; 99283

== ENCOUNTER → 2022-07-17 16:03 | Outpatient (BNVA) | payer MEDICARE, SELFPAY | PROVIDERS: PCP Family Medicine; Visit Provider Student in an Organized Health Care Education/Training Program | DX: T84.51XA Infection and inflammatory reaction due to internal right hip prosthesis, initial encounter (principal); L02.416 Cutaneous abscess of left lower limb; Z96.652 Presence of left artificial knee joint; M86.9 Osteomyelitis, unspecified; X58.XXXA Exposure to other specified factors, initial encounter | CPT/HCPCS: 99203; 99212 ==

== ENCOUNTER 2022-07-22 12:51 | Outpatient (CLI) | payer MEDICARE, SELFPAY ==
[2022-07-22 13:10] LABS: Basophils # 0.1 10^3/uL (0.0-0.1); Basophils % 0.8 %; Eosinophils # 0.6 10^3/uL (0.0-0.8); Eosinophils % 4.2 %; Hematocrit 39.5 % (37.0-47.0); Hemoglobin 11.9 g/dL (11.5-15.3); Lymphocytes % 15.2 %; Mean Corpuscular HGB Conc 30.1 g/dL (30.0-36.0); Mean Corpuscular Hemoglobin 27.4 pg (28.0-34.0); Mean Corpuscular Volume 90.8 fl (81-99); Mean Platelet Volume 12.5 fL (7.4-10.4); Monocytes % 7.6 %; Neutrophils # 9.31 10^3/uL (1.8-7.7); Neutrophils % 70.9 %; Nucleated Red Blood Cells % 0 %; Platelet Count 404 10^3/cmm (130-400); Red Blood Count 4.35 10^6/uL (4.1-5.3); Red Cell Distribution Width 15.9 % (12.1-15.1); White Blood Count 13.1 10^3/uL (4.0-10.0)
[2022-07-22 13:30] LABS: Alanine Aminotransferase 13 U/L (0-33); Albumin Level 3.6 g/dL (3.5-5.2); Alkaline Phosphatase 127 U/L (35-105); Anion Gap 17.6 (5-19); Aspartate Amino Transferase 14 U/L (0-32); Blood Urea Nitrogen 12 mg/dL (6-20); C Reactive Protein 7.1 mg/L (0.0-4.9); Calcium 9.6 mg/dL (8.5-10.5); Carbon Dioxide 22 mmol/L (22-29); Chloride 102 mmol/L (98-107); Globulin 4.2 g/dL (1.3-4.6); Glomerular Filtration Rate 129.1 mL/min (90-130); Glucose 96 mg/dL (65-115); Osmolality Calculated 286 mOsm/kg (285-295); Potassium 3.6 mmol/L (3.5-5.1); Sodium 138 mmol/L (136-145); Total Bilirubin 0.2 mg/dL (0.15-1.2); Total Protein 7.8 g/dL (6.6-8.7)
== END 2022-07-22 12:52 | disposition home or self-care (01) ==
PROVIDERS: PCP Family Medicine; Visit Provider Student in an Organized Health Care Education/Training Program
DX: T84.51XA Infection and inflammatory reaction due to internal right hip prosthesis, initial encounter (principal); B95.61 Methicillin susceptible Staphylococcus aureus infection as the cause of diseases classified elsewhere; X58.XXXA Exposure to other specified factors, initial encounter
CPT/HCPCS: 80053; 82248; 85025; 86140

== ENCOUNTER → 2022-07-28 12:57 | Outpatient (BNVA) | payer MEDICARE, SELFPAY | PROVIDERS: PCP Family Medicine; Visit Provider Podiatrist Foot & Ankle Surgery | DX: R60.0 Localized edema (principal); M86.171 Other acute osteomyelitis, right ankle and foot; M86.172 Other acute osteomyelitis, left ankle and foot; L97.921 Non-pressure chronic ulcer of unspecified part of left lower leg limited to breakdown of skin; L97.911 Non-pressure chronic ulcer of unspecified part of right lower leg limited to breakdown of skin; M05.79 Rheumatoid arthritis with rheumatoid factor of multiple sites without organ or systems involvement; L03.116 Cellulitis of left lower limb | CPT/HCPCS: 73630; 99203 ==

== ENCOUNTER → 2022-08-18 15:33 | Outpatient (BNVA) | payer MEDICARE, SELFPAY | PROVIDERS: PCP Family Medicine; Visit Provider Specialist | DX: T84.51XD Infection and inflammatory reaction due to internal right hip prosthesis, subsequent encounter (principal); Z96.652 Presence of left artificial knee joint; Y79.2 Prosthetic and other implants, materials and accessory orthopedic devices associated with adverse incidents; R60.0 Localized edema | CPT/HCPCS: 73502; 99215 ==

== ENCOUNTER → 2022-09-15 13:04 | Outpatient (BNVA) | payer MEDICARE, SELFPAY | PROVIDERS: PCP Family Medicine; Visit Provider Specialist | DX: T84.51XD Infection and inflammatory reaction due to internal right hip prosthesis, subsequent encounter (principal); T84.54XA Infection and inflammatory reaction due to internal left knee prosthesis, initial encounter; Y79.2 Prosthetic and other implants, materials and accessory orthopedic devices associated with adverse incidents; Z96.652 Presence of left artificial knee joint; L02.416 Cutaneous abscess of left lower limb | CPT/HCPCS: 20610; 73502; 73560; 73565; 80503; 87070; 87075; 87077; 87186; 87205; 89050; 99214 ==

== ENCOUNTER 2022-09-18 12:11 | Inpatient (IN) | payer MEDICARE, SELFPAY ==
[2022-09-17 10:15] VITALS: BMI 31.8
[2022-09-18] VITALS (20 sets, daily range): BP systolic 97–187; BP diastolic 58–123; PULSE 70–102; RESP 16–19; TEMP 36.1–36.6; O2SAT 92–100; BMI 33.5
--- NOTE | 2022-09-18 09:44 | P.HP_ITS ---
Same Day Surgery H&P Indication for Procedure/HPI DATE OF PROCEDURE: September 18, 2022 CHIEF COMPLAINT/INDICATIONFOR SURGICAL PROCEDURE: Infection left total knee here for removal components and antibiotic spacer placement PREOP DIAGNOSIS: Left total knee infection PLANNED PROCEDURE: Operation Date: 09/18/22 10:25 Proposed Procedures p removal hardware left total knee/ [id number],t84.59xa(Left) - Devang Horan MD The patient is a 51-year-old known to me after left total knee arthroplasty on 05/14/2020.? She had a history of apparent deep infection in the right hip in December 28, 2021.? She was treated with with IV antibiotics.? She was readmitted on 05/09/2022 with erythema and swelling about the right hip and suspicions of inf ection in the left foot.? Dr. Cole took her to the operating room for debridement of the foot on 05/10/2022.? I was asked to see the patient on 05/12/2022 without obvious a deep infection of the hip.? She was taken to the operating room myself that day for emergent irrigation and debridement.? She had drainage of a popliteal abscess on that date as well.? Fluid could not be aspirated from the knee.? Dr. Manriquez ultimately took the patient to the operating room for removal of the infected right total hip and placement of antibiotic spacers on 05/20/2022.? She was managed with IV cefazolin and ci profloxacin. She was seen last by me on 07/14/2022 with severe swelling in both legs. There is no effusion in the knee. Kenneid was seen again by Dr. Feliciano 3 days ago with clear swelling in her knee. The knee was aspirated with ultimate cultures revealing the same staph species. She has been put on the schedule today for removal of infected total knee and antibiotic spacer placement. Medications/Allergies* Home Medications Medication Instructions Recorded Confirmed Type prednisone 10 mg tablet 10 mg PO DAILY@12 01/06/22 09/17/22 History diphenhydramine HCl 25 mg capsule 25 mg PO BEDTIME 05/09/22 09/17/22 History (Benadryl) leflunomide 20 mg tablet 20 mg PO DAILY@12 05/09/22 09/17/22 History ibuprofen 800 mg tablet 800 mg PO TID PRN Pain 09/17/22 09/18/22 History levothyroxine 175 mcg tablet 175 mcg PO DAILY 09/17/22 09/17/22 History Allergies/Adverse Reactions Allergy/AdvReac Type Severity Reaction Status Date / Time Penicillins Allergy Severe ALGY-Anaphy Verified 09/15/22 13:33 laxis amoxicillin Allergy Unknown Verified 09/15/22 13:33 IV RA Meds Allergy ALGY-Anaphy Uncoded 09/15/22 13:33 laxis Pertinent History/Comorbid Conditions* Medical History (Updated 08/01/22 @ 08:07 by Zach Cole DPM) Bullae Chronic steroid use Chronic use of steroids High risk medication use Hypertension Hypothyroidism Immunization counseling Leukocytosis Rheumatoid arthritis Rheumatoid arthritis flare Seropositive rheumatoid arthritis of multiple sites Spondylolisthesis at L4-L5 level Surgical History (Updated 07/14/22 @ 15:37 by Devang Horan MD) History of foot surgery x5 right History of hand surgery 2right hand, 1 left hand History of hip replacement, total bilateral Status post incision and drainage Status post left knee replacement Family History (Updated 03/14/20 @ 12:00 by Mckenzie Hernadez LPN) CAD (coronary artery disease) Hyperlipidemia Cancer Hypertension Denies family history of Rheumatoid arthritis Diabetes Lupus Chronic kidney disease (CKD) Lung disease Stroke Social History Smoking and tobacco status: never smoked Pertinent Exam Findings alert, oriented x 3, clear to auscultation bilaterally, regular rate & rhythm and operative site marked Recommendations Surgery/Procedure today Coding Level of Care Code Acute Code for Chg Fwd Diagnoses
[2022-09-18] MEDS: sodium chloride 0.9% 1,000 ML 30 ML IV (09:56)
[2022-09-18] MEDS: ceFAZolin 2,000 MG in sodium chloride 0.9% (plus) 50 ML 100 MG IV ×2 (10:09→20:19)
--- NOTE | 2022-09-18 10:52 | ANES.PREANE2 ---
Pre-Anesthetic Assessment Height/Weight: Height 1.6 m Weight 81.647 kg Temp Pulse Resp BP Pulse Ox O2 Del Method 97.7 F 79 18 125/78 97 Room Air 09/18/22 09:20 09/18/22 09:20 09/18/22 09:20 09/18/22 09:20 09/18/22 09:20 09/18/22 09:25 Preop Diagnosis: Left total knee infection Operation Date: 09/18/22 10:25 Proposed Procedures p removal hardware left total knee/ [id number],[id number](Left) - Devang Horan MD Familial anesthetic complications: none Was Beta Brandon taken within 24 hours: N/A Was Clonidine taken within 24 hours: N/A Last intake: Intake Last Liquid Date 09/17/22 Last Liquid Time 22:00 Last Solid Date 09/17/22 Last Solid Time 20:00 Social No alcohol and No tobacco Exam alert, oriented x 3, clear to auscultation bilaterally and regular rate & rhythm CV/HEM Hypertension GI Gastroesophageal Reflux Disease Metabolic Morbid Obesity and Thyroid Disease chronic steroids Musc/skel Osteoarthritis/DJD and Rheumatoid Arthritis Anesthetic Plan ASA status: 3 Anesthesia: General Medications/Allergies Home Medications Medication Instructions Recorded Confirmed Last Taken Type prednisone 10 mg tablet 10 mg PO DAILY@12 01/06/22 09/17/22 09/17/22 History walker adjustable platform with #1 ea 01/14/22 09/15/22 Unknown Rx padded cuff diphenhydramine HCl 25 mg capsule 25 mg PO BEDTIME 05/09/22 09/17/22 09/17/22 20:30 History (Benadryl) leflunomide 20 mg tablet 20 mg PO DAILY@12 05/09/22 09/17/22 09/17/22 History pantoprazole 40 mg tablet,delayed 40 mg PO DAILY@12 #30 tabs 05/27/22 09/17/22 09/17/22 Rx release lisinopril 5 mg tablet 5 mg PO DAILY@12 #90 tabs 07/23/22 09/17/22 09/17/22 Rx tramadol 50 mg tablet 100 mg PO TID PRN Pain 30 days 07/25/22 09/17/22 09/17/22 Rx #180 tabs ibuprofen 800 mg tablet 800 mg PO TID PRN Pain 09/17/22 09/18/2209/17/23 20:30 History levothyroxine 175 mcg tablet 175 mcg PO DAILY 09/17/22 09/17/22 09/17/22 History Allergies Allergy/AdvReac Type Severity Reaction Status Date / Time Penicillins Allergy Severe ALGY-Anaphy Verified 09/15/22 13:33 laxis amoxicillin Allergy Unknown Verified 09/15/22 13:33 IV RA Meds Allergy ALGY-Anaphy Uncoded 09/15/22 13:33 laxis Current Medications Generic Name Dose Route Start Last Admin Trade Name Freq PRN Reason Stop Dose Admin Sodium Chloride 1,000 mls @ 30 mls/hr 09/18/22 09:00 09/18/22 09:56 Sodium Chloride 0.9% IV 09/19/22 08:59 30 mls/hr .Q24H MICHELLE Administration PFSH Anesthesia Medical History Bullae Chronic steroid use Chronic use of steroids High risk medication use Hypertension Hypothyroidism Immunization counseling Leukocytosis Rheumatoid arthritis Rheumatoid arthritis flare Seropositive rheumatoid arthritis of multiple sites Spondylolisthesis at L4-L5 level Surgical History History of foot surgery x5 right History of hand surgery 2right hand, 1 left hand History of hip replacement, total bilateral Status post incision and drainage Status post left knee replacement Family History Other CAD (coronary artery disease) Cancer Hyperlipidemia Hypertension Denies family history of Rheumatoid arthritis Diabetes Lupus Chronic kidney disease (CKD) Lung disease Stroke Social History Smoking and tobacco status: never smoked Data Anesthesia Cardiac Studies: Echocardiogram 05/14/22
[2022-09-18] MEDS: vancomycin 1,000 MG SDV 5000 MG XX (10:54)
[2022-09-18] MEDS: tobramycin 40 mg/mL SDV 2mL 160 MG XX (10:55)
--- NOTE | 2022-09-18 12:09 | P.OP_ITS ---
Operative Report Date of procedure: September 18, 2022 Pre-op diagnosis: Preop Diagnosis Left total knee infection Post-op diagnosis: same Procedure done: Movable left total knee infected arthroplasty and revision to a articulating antibiotic spacer Implants: 5 cc Stimulan beads with 1 g of vancomycin Atune Size 4 femur 10 mm thickness size 4 stemmed polyethylene tibial insert Specimens removed/disposition: Purulent fluid from the medial tibia was sent for routine and anaerobic culture Pathology: none sent Surgeon: Devang Horan Anesthesia: General Estimated blood loss (mL): 50 Findings: The patient had a abscess over the anterior medial knee beginning just anterior to the patellar tendon extending medially. There was a small abscess posteriorly into the popliteal space which seem to communicate with the posterior capsule. Condition: stable Disposition: PACU Procedure: The patient was taken to the operating room and given a general anesthesia. She was prepped and draped in the supine position with her left knee exposed. She was given 2 g of Ancef. A timeout was performed. The knee was initially entered through a standard anterior incision line with the previous scar. Upon moving through the subcutaneous tissue along the distal incision a abscess was identified overlying the medial retinaculum extending from the medial patellar tendon border along the medial aspect of the tibia. Routine and anaerobic cultures were taken of this fluid. The knee was then entered through the previous suture line revealing very thickened synovium but no obvious purulent fluid. Utilizing an oscillating saw the femoral component was freed from the distal femur and removed with a tamp. Minimal bone loss occurred with removal of the femoral component. There is approximately 3 mm of bone loss over the distal lateral femoral condyle. Similarly the solace passed beneath the tibial component and and freed with osteotome. Utilizing a tamp the tibial component was removed with the only bone loss of the note that immediately posterior to the stem at a depth of approximately 5 mm. Aggressive debridement was accomplished of the knee. Thickened synovium was removed from the medial and lateral gutters and posterior knee. A DePuy size 4 Atune femur was consistent with the size of the previous femur removed and covered satisfactorily over the femur. A size 4 baseplate provided reasonable approximation to the baseplate removed and adequate coverage of the tibia. Tibial component was positioned over the tibia. The canal for the post was reamed and the fins for the stem placed. The popliteal sinus was then opened proximally and distally with a scalpel blade. Cavity was identified in the medial popliteal space with no obvious ext ension into the calf or posterior thigh. 2.5 L of saline were used to clean the joint with a pulsatile lavage. The final half liter saline was irrigated through the posterior wound with small amounts of fluid emanating through the posterior capsule and the knee. On the back table 2 bags of Simplex tobramycin cement were mixed with 4 g of powdered vancomycin. 1 g of vancomycin was mixed with 5 cc of Stimulan beads. When the cement was nearly hardened the stem and the poly was loosely cemented into place. This was followed by cementing of the femoral component in place. The knee w. The subcutaneous tissues and skin were closed with vertical mattress 1 Prolene. ABD pads were placed posterior to the knee as brought in extension and allowed to harden and excessive cement removed. Stimulan beads were then placed in the medial and lateral gutters. The tourniquet was deflated with minimal bleeding. The extensor retinaculum was closed with 1 Vicryl. ABD pads were placed posterior to the knee. Xeroflo gauze and 4 x 4's were placed over the anterior incision. Compressive cast padding and Rehan wrap were applied. The patient was extubated and taken recovery in stable condition
[2022-09-18] MEDS: meperidine 50 mg/mL INJ 12.5 MG IVP (12:31)
[2022-09-18] MEDS: metoprolol tartrate 1 mg/1 mL SDV 5 mL 5 MG IVP (12:43)
--- NOTE | 2022-09-18 14:26 | ANE.PACU2 ---
Inpatient post-anesthesia follow up: Airway intact: Yes Vital signs: Temperature 97.5 F Pulse Rate 78 Respiratory Rate 17 Blood Pressure 141/89 Pulse Oximetry 97 Oxygen Delivery Me thod Room Air Oxygen Flow Rate 6 Fraction of Inspir ed Oxygen Hydration adequate: Yes Nausea and vomiting: No Pain level: 2 Mental status: Baseline
--- NOTE | 2022-09-18 14:40 | P.CONIM_ITS ---
Providers/Reason For Consult Consulting Physician/Specialty*: Priya Murphy MD/ infectious disease Reason for Consult*: PJI Requesting Physician: Dr. 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 she is s/p removal of all infected hardware at the right hip on 05/20 and curren tly has spacers in place since then.? Joint cx showed MSSA. Blood cultures were also positive for MSSA. For her LEFT knee, She underwent I&D of the left popliteal fossa, her wound eventually healed, intraoperatively changes were not seen to be extended into the joint per surgeon, however given multiple positive blood cultures and longstanding history of joint swelling since December 2021, she was presumed to have an underlying infected prosthetic joint.? This joint was preserved at that time. She was treated with ?8 weeks of IV cefazolin 2 g every 8 hours, completing course on July 08, 2022.? Therefater transitioned to P.o. ciprofloxacin for additonal 6 weeks taking total treatment to over 12 weeks. Accompanying Rifampin was added due to retained knee for a short course, needed to be discontinued early as patient developed DVT and needed to be started on Eliquis. In may she also osteomyelitis of the left foot with Pseudomonas which was treated with po ciprofloxacin for 6 weeks. She has had a long road to recovery since then with interim development of DVT, lower extremity weeping edema needing initiation of diuretics, home PT, early discharge from SNF, etc. All abx were discontinued on 07/17/22 with plan to monitor for any signs of knee infection off abx. She is starting to ambulate finally and feels that pain at her right hip is better than before. She followed up with Dr. Otto on 09/15. On this outpatient follow-up her left knee was noted to be swollen, left knee was aspirated and cx is showing MSSA as expected. She underwent removal of left total knee infected arthroplasty and revision to a articulating antibiotic spacer. She tolerated the procedure well Review of Systems General: Reports: 10 or more systems reviewed and unremarkable except in HPI and below Const: Denies: fever(s), chills or body aches Eyes: Denies: change in vision, blurry vision or photophobia ENMT: Reports: hoarseness; Denies: throat pain, enlarged tonsils, odynophagia or nasal congestion Card: Denies: chest pain, palpitations, irregular heart rhythm, edema, swelling of feet/ankles, lightheadedness, pre-syncope, dyspnea on exertion or orthopnea Resp: Denies: dyspnea, productive cough, non-productive cough, wheezing, stridor, pain on inspiration, change in phlegm color, hemoptysis or chest congestion GI: Denies: abdominal pain, nausea, vomiting, hematemesis, coffee ground emesis, dysphagia, heartburn, diarrhea, constipation, GI cramping, change in stool character, hematochezia or melena : Denies: flank pain, difficulty voiding, dysuria, urinary frequency, urinary urgency, urinary hesitancy or hematuria Musc: Denies: neck pain, back pain, extremity pain, joint swelling, joint warmth or deformity Neuro: Denies: headache(s), numbness in extremities, weakness in extremities, sensory changes, difficulty walking, frequent falls, dizziness, vertigo, behavioral changes, Slurred speech present or seizure-like activity Psych: Denies: anxiety, depression, suicidal ideation or homicidal ideation Endo: Denies: polyuria, polydipsia, tired all the time, cold intolerance or hot flashes Malick/Lymph: Denies: easy bruising or easy bleeding Medications/Allergies Home Medications Medication Instructions Recorded Confirmed Last Taken Type prednisone 10 mg tablet 10 mg PO DAILY@12 01/06/22 09/17/22 09/17/22 History walker adjustable platform with #1 ea 01/14/22 09/15/22 Unknown Rx padded cuff diphenhydramine HCl 25 mg capsule 25 mg PO BEDTIME 05/09/22 09/17/22 09/17/22 20:30 History (Benadryl) leflunomide 20 mg tablet 20 mg PO DAILY@12 05/09/22 09/17/22 09/17/22 History pantoprazole 40 mg tablet,delayed 40 mg PO DAILY@12 #30 tabs 05/27/22 09/17/22 09/17/22 Rx release lisinopril 5 mg tablet 5 mg PO DAILY@12 #90 tabs 07/23/22 09/17/22 09/17/22 Rx tramadol 50 mg tablet 100 mg PO TID PRN Pain 30 days 07/25/22 09/17/22 09/17/22 Rx #180 tabs ibuprofen 800 mg tablet 800 mg PO TID PRN Pain 09/17/22 09/18/22 09/17/22 20:30 History levothyroxine 175 mcg tablet 175 mcg PO DAILY 09/17/22 09/17/22 09/17/22 History Allergies Allergy/AdvReac Type Severity Reaction Status Date / Time Penicillins Allergy Severe ALGY-Anaphy Verified 09/15/22 13:33 laxis amoxicillin Allergy Unknown Verified 09/15/22 13:33 IV RA Meds Allergy ALGY-Anaphy Uncoded 09/15/22 13:33 laxis PFSH Acute PFSH: Medical History Bullae Chronic steroid use Chronic use of steroids High risk medication use Hypertension Hypothyroidism Immunization counseling Leukocytosis Rheumatoid arthritis Rheumatoid arthritis flare Seropositive rheumatoid arthritis of multiple sites Spondylolisthesis at L4-L5 level Surgical History History of foot surgery x5 right History of hand surgery 2right hand, 1 left hand History of hip replacement, total bilateral Status post incision and drainage Status post left knee replacement Family History Other CAD (coronary artery disease) Cancer Hyperlipidemia Hypertension Denies family history of Rheumatoid arthritis Diabetes Lupus Chronic kidney disease (CKD) Lung disease Stroke Social History Smoking and tobacco status: never smoked Substance/Drug Use: former Vitals/I&O/Wt Last Vital Signs Temp 97.5 F L 09/18/22 13:28 Pulse 78 09/18/22 13:28 Resp 17 09/18/22 13:03 BP 141/89 09/18/22 13:28 Pulse Ox 97 09/18/22 13:28 O2 Del Method Room Air 09/18/22 14:16 O2 Flow Rate 6 09/18/22 12:17 09/17/22 09/18/22 09/18/22 22:59 06:59 14:59 Intake Total 150 / 150 Output Total 50 / 50 Balance 100 / 100 Weight last 48 hrs Weight 88.677 kg Weight 81.647 kg Physical Exam Narrative: General: No acute distress, AO x3 HEENT: PERRLA, pupils bilaterally equal and reactive, pallors not present Chest: Normal vesicular breath sounds, no added sounds, equal good air entry bilaterally CVS: S1-S2 regular, no murmurs, no tachycardia, no gallops, no rubs Abdomen: Soft, nontender, no organomegaly, bowel sounds present Neuro: No focal deficits, no facial deformity, AO x3, power 5/5 in all limbs EXT: left knee in surgical dressing, not opened for exam Data 09/18/22 13:34 09/18/22 13:34 Other Labs: 09/15/22: left knee joint aspirate: [facility] [address] [place] [id number] 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 RX --------- ------ * Amoxicillin/Clavulanate <=4/2 S * Ampicillin >8 R * Ampicillin/Sulbactam <=8/4 S * Ceftriaxone <=8 S * Ciprofloxacin <=1 S * Clindamycin <=0.5 S * Erythromycin <=0.5 S * Gentamicin <=4 S * Levofloxacin <=1 S * Linezolid 4 S * Oxacillin 0.5 S * Penicillin >8 R * Rifampin <=1 S * Tetracycline <=4 S * Trimethoprim/Sulfamethoxazole <=0.5/9.5 S Vancomycin 2 S Daptomycin <=0.5 S Body Fluid Culture Preliminary (changed) 09/16/22-1037 Organism 1 Coag positive Staphylococcus Growth MODERATE DAY 1, RESULTS TO FOLLOW [facility] @ [address] [address] XRay Report Signed Patient: Kristine Barbosa Unit #: [id number] : 1970 Age/Sex: 51 / F ADM Date: 09/15/22 Loc: ORTO Room/Bed: Attending Dr: Aliza Otto MD Ordering Provider/Ordering MD: Aliza Otto MD Date of Service: 09/15/22 Procedure(s): XR knees AP WB w LT lmt ORTH Accession Number(s): [id number] Report Number: [id number] WS: [id number] Left knee, standing AP views of both knees, lateral and patellar view of the left knee, 09/15/2022 Clinical Data: ptop Comparison: Left knee, 07/14/2022 Findings: The AP view of the right knee shows medial joint compartment narrowing with small spurs of the medial femoral condyle and medial tibial plateau. The left knee arthroplasty remains in good position. The components show no periarticular fractures or loosening. There is a lateral displacement of the patella unchanged. The soft tissues are normal. XR/XR knees AP WB w LT lmt ORTH Impression: ? 1. Medial joint compartment narrowing of the right knee. 2. Stable left knee arthroplasty with lateral displacement of the patella A&P Assessment and plan (1) Infection of right prosthetic hip joint: Qualifiers: Encounter type: subsequent encounter Qualified Code(s): T84.51XD - Infection and inflammatory reaction due to internal right hip prosthesis, subsequent encounter (2) Infection of prosthetic knee joint: (3) Foot osteomyelitis: Plan Ms. Barbosa has a complicated history of right prosthetic hip joint infection, left Knee PJI, MSSA bacteremia and osteomyelitis of the metatarsal of left foot diagnosed in May 2022. Given 3 sites involved at the same time, highly suspicious for secondary seeding from her concomitant MSSA bacteremia.? For details please see inpatient consult notes and progress notes from May 2022. Patient is status post removal of all existing hardware at the right hip and placement of spacers on May and I& D of the knee in may 2022. Completed 12 weeks of MSSA directed therapy in July 2022. Now most recently s/p removal of all hardware from knee today with abx cement spacers in place. outpatient joint aspirate growing MSSA. Will await OR cx started on iv cefazolin, will increase dose to 2g iv every 8 hrs for mSSA directed rx check blood cx If blood cx negative at 48 hrs, plan for PICC line and abx ove rthe next 6 weeks Pt eval pending Depending on how she does with therapy , disposition needs to be ascertained regarding SNF versus home health. Patient is more inclined towards going home, from an infectious disease standpoint extensively counseled her that at a minimum going home would require administering IV antibiotic every 8 hours at home and returning to the clinic for GI Lab for PICC line check and PICC line changes at least every week. Patient has had previous difficulties in ambulating and has not been able to be mobile enough to have in person visits. However patient states that her mobility has improved significantly more recently. Consult Attestations Medical Necessity Statement: Prosthetic joint infection, need for IV antibiotics Coding Level of Care Code Acute Code for [facility] Fwd Diagnoses Infection of right prosthetic hip joint T84.51XD Encounter type: subsequent encounter Infection of prosthetic knee joint T84.59XA; Z96.659 Foot osteomyelitis M86.9
[2022-09-18] MEDS: acetaminophen 500 mg Tablet 1000 MG PO ×2 (15:01→23:28)
[2022-09-18] MEDS: CELEcoxib 200 mg Capsule PO (15:01)
[2022-09-18] MEDS: enoxaparin 30 mg/0.3 mL Syringe SUBCUT (15:02)
[2022-09-18] MEDS: sodium chloride 0.9% 1,000 ML 100 ML IV ×2 (15:03→23:28)
--- NOTE | 2022-09-18 15:04 | P.CONIM_ITS ---
Providers/Reason For Consult Consulting Physician/Specialty*: Dr. Osborne/internal medicine Reason for Consult*: Medical comorbidities Requesting Physician: Dr. Macias Attending Physician: Devang Horan MD Primary Care Provider: Kylie Stewart DO History of Present Illness History of Present Illness Kristine Barbosa is a 51 year old female with a past medical history of rheumatoid arthritis on treatment with prednisone, Actemra and leflunomide previosuly, currently only on prednisone 10mg po daily,? had a compliacted admission here between? 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 MSSA abscess of the LEFT popliteal fossa. She is s/p removal of all infected hardware at the right hip on 05/20 and currently has spacers in place since then.? Joint cx showed MSSA. Blood cultures were also positive for MSSA. She finished a course of 8 weeks of IV cefazolin on July 08. As per patient she has been doing well and has been increasing her mobility with walker at home. On her follow-up with orthopedics there was concern for abscess of the left knee which was aspirated as an outpatient on 09/15 from which the fluid is growing MSSA again. She was admitted to orthopedic service today and she underwent joint removal with spacer present in left knee now. No blood work is still in the system. In between she was also diagnosed of lower limb DVT for which apparently she was on treatment with Eliquis only for 1 month but has not taken any treatment since then. She currently denies any difficulty in breathing, chest pain, nausea vomiting, headache. Postoperatively seen on the floor, sitting up in bed trying to stand up to pass urine. Patient is hemodynamically stable, afebrile and saturating well on room air. Review of Systems General: Reports: 10 or more systems reviewed and unremarkable except in HPI and below Const: Denies: fever(s), chills, body aches, change in appetite, change in weight, malaise, night sweats, diaphoresis, change in sleep pattern, daytime sleepiness or snoring Eyes: Denies: change in vision, blurry vision, photophobia, eye discomfort or eye discharge ENMT: Denies: throat pain, enlarged tonsils, hoarseness, mouth pain, oral sores, dry mouth, tinnitus, nasal congestion or post nasal drip Card: Denies: chest pain, palpitations, irregular heart rhythm, edema, swe lling of feet/ankles, lightheadedness, syncope, pre-syncope, dyspnea on exertion, orthopnea, leg pain with exertion or acrocyanosis Resp: Denies: dyspnea, productive cough, non-productive cough, wheezing, stridor, pain on inspiration, change in phlegm color, hemoptysis or chest congestion GI: Denies: abdominal pain, nausea, vomiting, hematemesis, coffee ground emesis, dysphagia, heartburn, diarrhea, constipation, bloating, GI cramping, change in bowel habits, pain on defecation, hematochezia or melena : Denies: flank pain, dysuria, urinary frequency, urinary urgency, urinary hesitancy, nocturia or hematuria Musc: Denies: neck pain, back pain, extremity pain, joint pain, joint swelling, joint redness, joint stiffness or limited range of motion Neuro: Denies: headache(s), numbness in extremities, weakness in extremities, sensory changes, lack of coordination, difficulty walking, frequent falls, dizziness, vertigo, confusion, Slurred speech present, difficulty communicating thoughts or seizure-like activity Psych: Denies: anxiety, depression, mood swings, panic attacks, hopelessness or irritability Endo: Denies: polyuria, polydipsia, tired all the time, cold intolerance, e xcessive sweating, flushing or heat intolerance Malick/Lymph: Denies: easy bruising or easy bleeding All/Imm: Denies: tongue swelling, facial swelling or acute wheezing Medications/Allergies Home Medications Medication Instructions Recorded Confirmed Last Taken Type prednisone 10 mg tablet 10 mg PO DAILY@01/06/22 09/17/22 09/17/22 History walker adjustable platform with #1 ea 01/14/22 09/15/22 Unknown Rx padded cuff diphenhydramine HCl 25 mg capsule 25 mg PO BEDTIME 05/09/22 09/17/22 09/17/22 20:30 History (Benadryl) leflunomide 20 mg tablet 20 mg PO DAILY@12 05/09/22 09/17/22 09/17/22 History pantoprazole 40 mg tablet,delayed 40 mg PO DAILY@12 #30 tabs 05/27/22 09/17/22 09/17/22 Rx release lisinopril 5 mg tablet 5 mg PO DAILY@12 #90 tabs 07/23/22 09/17/22 09/17/22 Rx tramadol 50 mg tablet 100 mg PO TID PRN Pain 30 days 07/25/22 09/17/22 09/17/22 Rx #180 tabs ibuprofen 800 mg tablet 800 mg PO TID PRN Pain 09/17/22 09/18/22 09/17/22 20:30 History levothyroxine 175 mcg tablet 175 mcg PO DAILY 09/17/22 09/17/22 09/17/22 History Allergies Allergy/AdvReac Type Severity Reaction Status Date / Time Penicillins Allergy Severe ALGY-Anaphy Verified 09/15/22 13:33 laxis amoxicillin Allergy Unknown Verified 09/15/22 13:33 IV RA Meds Allergy ALGY-Anaphy Uncoded 09/15/22 13:33 laxis PFSH Acute PFSH: Medical History Bullae Chronic steroid use Chronic use of steroids High risk medication use Hypertension Hypothyroidism Immunization counseling Leukocytosis Rheumatoid arthritis Rheumatoid arthritis flare Seropositive rheumatoid arthritis of multiple sites Spondylolisthesis at L4-L5 level Surgical History History of foot surgery x5 right History of hand surgery 2right hand, 1 left hand History of hip replacement, total bilateral Status post incision and drainage Status post left knee replacement Family History Other CAD (coronary artery disease) Cancer Hyperlipidemia Hypertension Denies family history of Rheumatoid arthritis Diabetes Lupus Chronic kidney disease (CKD) Lung disease Stroke Social History Smoking and tobacco status: never smoked Substance/Drug Use: former Vitals/I&O/Wt Last Vital Signs Temp 97.5 F L 09/18/22 13:28 Pulse 78 09/18/22 13:28 Resp 17 09/18/22 13:03 BP 141/89 09/18/22 13:28 Pulse Ox 97 09/18/22 13:28 O2 Del Method Room Air 09/18/22 14:16 O2 Flow Rate 6 09/18/22 12:17 09/18/22 09/18/22 09/18/22 06:59 14:59 22:59 Intake Total 150 / 150 Output Total 50 / 50 Balance 100 / 100 Weight last 48 hrs Weight 88.677 kg Weight 81.647 kg Physical Exam Narrative: General: No acute distress, AO x3, jovial, spouse at bedside, on room air, obese HEENT: PERRLA, pupils bilaterally equal and reactive Chest: Normal vesicular breath sounds, no added sounds, equal good air entry bilaterally CVS: S1-S2 regular, no murmurs, no tachycardia, no gallops, no rubs Abdomen: Soft, nontender, no organomegaly, bowel sounds present Neuro: No focal deficits, no facial deformity, AO x3, power 5/5 in all limbs Extremity: Left leg surgically bandaged without soakage Data 09/18/22 13:34 09/18/22 13:34 A&P Assessment and plan (1) Encounter for postoperative care: Post left knee arthroplasty. Anticoagulation, physical therapy, pain regimen as per primary team. Would like to start patient on full dose anticoagulation for DVT as soon as possible. We confirm with primary team. Monitor hemoglobin. (2) Infection of prosthetic knee joint: ID consulted by primary team. We will follow-up recommendations for antibiotics. Most likely cefazolin. (3) DVT (deep venous thrombosis): Received treatment with Eliquis only for 1 month. Off treatment for 2 months. Would most likely start patient on full dose Lovenox while during hospitaliza tion for postoperative status once okay with the primary team. Will discharge on Eliquis 5 mg twice daily for 6-month course. Discussed in detail with patient. (4) Foot osteomyelitis: (5) Non-pressure ulcer of right lower extremity, limited to breakdown of skin: (6) Immunocompromised due to corticosteroids: Plan Continue other chronic medications including prednisone 10 mg oral daily, levothyroxine 175 mcg daily, lisinopril 5 mg oral daily, pantoprazole 40 mg oral daily. Check CBC, CMP, lipid panel, A1c, TSH, procalcitonin, CRP, blood culture, iron panel. Further recommendations will be made as per results of the tests. Frey catheterization for now. Full code. Regular diet. Anticoagulation as per primary team. Protonix for PUD prophylaxis Consult Attestations Medical Necessity Statement: as per Primary team. Diagnoses Encounter for postoperative care Z48.89 Infection of prosthetic knee joint T84.59XA; Z96.659 DVT (deep venous thrombosis) I82.409 Foot osteomyelitis M86.9 Non-pressure ulcer of right lower extremity, limited to breakdown of skin L97.911 Immunocompromised due to corticosteroids D84.821; T38.0X5A; Z79.52
[2022-09-18 15:51] LABS: Basophils # 0.1 10^3/uL (0.0-0.1); Basophils % 0.4 %; Hematocrit 34.4 % (37.0-47.0); Hemoglobin 10.8 g/dL (11.5-15.3); Lymphocytes # 0.6 10^3/uL (0.8-4.8); Lymphocytes % 2.5 %; Mean Corpuscular HGB Conc 31.4 g/dL (30.0-36.0); Mean Corpuscular Hemoglobin 24.9 pg (28.0-34.0); Mean Corpuscular Volume 79.4 fl (81-99); Mean Platelet Volume 11.1 fL (7.4-10.4); Monocytes # 1.2 10^3/uL (0.2-0.9); Monocytes % 4.5 %; Neutrophils # 23.87 10^3/uL (1.8-7.7); Neutrophils % 91.4 %; Nucleated Red Blood Cells % 0 %; Platelet Count 432 10^3/cmm (130-400); Red Blood Count 4.33 10^6/uL (4.1-5.3); Red Cell Distribution Width 16.6 % (12.1-15.1); White Blood Count 26.1 10^3/uL (4.0-10.0)
[2022-09-18 16:21] LABS: Alanine Aminotransferase 11 U/L (0-33); Albumin Level 2.8 g/dL (3.5-5.2); Alkaline Phosphatase 136 U/L (35-105); Anion Gap 17.1 (5-19); Aspartate Amino Transferase 15 U/L (0-32); Blood Urea Nitrogen 10 mg/dL (6-20); C Reactive Protein 91.1 mg/L (0.0-4.9); Calcium 8.4 mg/dL (8.5-10.5); Carbon Dioxide 18 mmol/L (22-29); Chloride 105 mmol/L (98-107); Creatinine Clr Calc Pharmacy 140.2807; Globulin 3.8 g/dL (1.3-4.6); Glomerular Filtration Rate 129.1 mL/min (90-130); Glucose 135 mg/dL (65-115); Osmolality Calculated 283 mOsm/kg (285-295); Potassium 4.1 mmol/L (3.5-5.1); Sodium 136 mmol/L (136-145); Thyroid Stimulating Hormone 1.83 uIU/mL (0.27-4.20); Total Bilirubin 0.2 mg/dL (0.15-1.2); Total Protein 6.6 g/dL (6.6-8.7)
[2022-09-18 16:31] LABS: Folate Level 9.5 ng/mL (4.8-37.3)
[2022-09-18 16:32] LABS: Procalcitonin 0.06 ng/mL (0-0.5); Vitamin B12 908 pg/mL (232-1245)
[2022-09-18 16:57] LABS: Iron 13 ug/dL (37-145); Percent Saturation 6.3 % (20-50); Total Iron Binding Capacity 206 mcg/dl; Unsaturated Iron Binding 193 ug/dL (112-347)
[2022-09-18] MEDS: oxyCODONE 5 mg IR Tab/Cap PO (18:01)
[2022-09-18] MEDS: diphenhydrAMINE 25 mg Capsule PO (20:19)
[2022-09-18] MEDS: gabapentin 300 mg Capsule PO (20:19)
[2022-09-19] VITALS (12 sets, daily range): BP systolic 97–129; BP diastolic 66–78; PULSE 64–77; RESP 15–20; TEMP 36.7–36.8; O2SAT 95–99
[2022-09-19] MEDS: CELEcoxib 200 mg Capsule PO ×2 (02:34→14:12)
[2022-09-19] MEDS: enoxaparin 30 mg/0.3 mL Syringe SUBCUT ×2 (02:34→14:12)
[2022-09-19] MEDS: ceFAZolin 2,000 MG in sodium chloride 0.9% (plus) 50 ML 100 MG IV ×3 (02:34→17:53)
[2022-09-19 05:11] LABS: Basophils # 0.1 10^3/uL (0.0-0.1); Basophils % 0.3 %; Eosinophils % 0.1 %; Hematocrit 29.7 % (37.0-47.0); Hemoglobin 9.3 g/dL (11.5-15.3); Lymphocytes # 1.6 10^3/uL (0.8-4.8); Lymphocytes % 8.1 %; Mean Corpuscular HGB Conc 31.3 g/dL (30.0-36.0); Mean Corpuscular Hemoglobin 25.3 pg (28.0-34.0); Mean Corpuscular Volume 80.7 fl (81-99); Mean Platelet Volume 11.3 fL (7.4-10.4); Monocytes % 9.9 %; Neutrophils % 80.4 %; Nucleated Red Blood Cells % 0 %; Platelet Count 421 10^3/cmm (130-400); Red Blood Count 3.68 10^6/uL (4.1-5.3); Red Cell Distribution Width 16.5 % (12.1-15.1)
[2022-09-19 05:29] LABS: Estmated Average Glucose 114; Hemoglobin A1C 5.6 % (4.0-6.0)
[2022-09-19 05:33] LABS: Alanine Aminotransferase 9 U/L (0-33); Albumin Level 2.4 g/dL (3.5-5.2); Alkaline Phosphatase 149 U/L (35-105); Anion Gap 14.3 (5-19); Aspartate Amino Transferase 14 U/L (0-32); Blood Urea Nitrogen 9 mg/dL (6-20); Calcium 8.1 mg/dL (8.5-10.5); Carbon Dioxide 20 mmol/L (22-29); Chloride 109 mmol/L (98-107); Creatinine Clr Calc Pharmacy 140.2807; Globulin 3.1 g/dL (1.3-4.6); Glomerular Filtration Rate 129.1 mL/min (90-130); Glucose 88 mg/dL (65-115); Osmolality Calculated 286 mOsm/kg (285-295); Potassium 4.3 mmol/L (3.5-5.1); Sodium 139 mmol/L (136-145); Total Bilirubin 0.2 mg/dL (0.15-1.2); Total Protein 5.5 g/dL (6.6-8.7)
[2022-09-19 05:39] LABS: Chol HDL Ratio 4.96 mg/dL (0.0-4.40); Cholesterol 134 mg/dL (0-200); HDL Cholesterol 27 mg/dL (60-100); LDL Cholesterol Calculated 92 mg/dL (50-129); Triglycerides 77 mg/dL (0-150); VLDL Cholestrol Calculation 15 mg/dL (0-30)
--- NOTE | 2022-09-19 07:20 | P.PN_ITS ---
Subjective Subjective: Patient complains of pain. Waiting for pain medication Vitals/I&O/Wt Last Vital Signs Temp 98.0 F 09/19/22 04:38 Pulse 64 09/19/22 04:38 Resp 20 H 09/19/22 04:38 BP 97/66 09/19/22 04:38 Pulse Ox 97 09/19/22 04:38 O2 Del Method Room Air 09/18/22 20:00 O2 Flow Rate 6 09/18/22 12:17 09/18/22 09/19/22 09/19/22 22:59 06:59 14:59 Intake Total 370 / 520 1391.667 / 1911.667 Output Total 300 / 350 550 / 900 Balance 70 / 170 841.667 / 1011.667 Weight last 48 hrs Weight 195 lb 8 oz Weight 180 lb Physical Exam Narrative: Knee dressing clean and dry. Flexes extends left toes and ankle. Left sensation intact to light touch Data 09/19/22 04:10 09/19/22 04:10 Micro: Microbiology 09/18/22 10:44 Gram Stain - Final Knee - #2 09/18/22 15:39 Blood Culture - Preliminary Blood SPECIMEN COLLECTED 09/18/22 13:34 Blood Culture - Preliminary Blood SPECIMEN COLLECTED A&P Assessment and plan (1) Infection of prosthetic knee joint: Opponents removed and exchanged with articulating antibiotic spacers. May mobilize as tolerated. Antibiotics per ID service. Attestations Medical Necessity Statement*: Plan for group home placement at this time. Coding Level of Care Code Acute Code for [facility] Fwd Diagnoses Infection of prosthetic knee joint T84.59XA; Z96.659
[2022-09-19] MEDS: acetaminophen 500 mg Tablet 1000 MG PO ×2 (08:02→17:52)
[2022-09-19] MEDS: oxyCODONE 5 mg IR Tab/Cap PO ×4 (08:02→21:52)
[2022-09-19 09:35] LABS: Hemoglobin 9.8 g/dL (11.5-15.3)
[2022-09-19] MEDS: gabapentin 300 mg Capsule PO ×2 (10:26→21:49)
[2022-09-19] MEDS: levothyroxine 175 mcg Tablet PO (10:31)
[2022-09-19] MEDS: predniSONE 10 mg Tablet PO (12:13)
[2022-09-19] MEDS: lisinopril 5 mg Tablet PO (12:20)
[2022-09-19] MEDS: pantoprazole DR 40 mg Tablet PO (12:20)
[2022-09-19] MEDS: sodium chloride 0.9% 1,000 ML 100 ML IV (12:43)
--- NOTE | 2022-09-19 16:46 | PM.PN ---
Subjective Subjective: No acute vents overnight. Patient has remained hemodynamically stable and afebrile. Denies any nausea, vomiting, headache. Today morning seen sitting up in chair. Remains on room air. Vitals/I&O/Wt Last Vital Signs Temp 98.3 F 09/19/22 15:54 Pulse 75 09/19/22 15:54 Resp 16 09/19/22 15:54 BP 115/68 09/19/22 15:54 Pulse Ox 97 09/19/22 15:54 O2 Del Method Room Air 09/19/22 08:56 O2 Flow Rate 6 09/18/22 12:17 09/19/22 09/19/22 09/19/22 06:59 14:59 22:59 Intake Total 1391.667 / 3565.053 8319 / 1650 Output Total 550 / 900 Balance 841.667 / 2466.982 4192 / 1650 Weight last 48 hrs Weight 88.677 kg Physical Exam Narrative: General: No acute distress, AO x3, jovial, spouse at bedside, on room air, obese HEENT: PERRLA, pupils bilaterally equal and reactive Chest: Normal vesicular breath sounds, no added sounds, equal good air entry bilaterally CVS: S1-S2 regular, no murmurs, no tachycardia, no gallops, no rubs Abdomen: Soft, nontender, no organomegaly, bowel sounds present Neuro: No focal deficits, no facial deformity, AO x3, power 5/5 in all limbs Extremity: Left leg surgically bandaged without soakage Data 09/19/22 09:00 09/19/22 04:10 Micro: Microbiology 09/18/22 10:44 Gram Stain - Final Knee - #2 Abscess Culture - Preliminary Coag positive Staphylococcus 09/18/22 15:39 Blood Culture - Preliminary Blood NEGATIVE TO DATE 09/18/22 13:34 Blood Culture - Preliminary Blood NEGATIVE TO DATE 09/18/22 17:35 MRSA Culture - Final Nose A&P Assessment and plan (1) Encounter for postoperative care: Post left knee arthroplasty. Anticoagulation, physical therapy, pain regimen as per primary team. Would like to start patient on full dose anticoagulation for DVT as soon as possible. We confirm with primary team. Monitor hemoglobin. (2) Infection of prosthetic knee joint: ID consulted by primary team. We will follow-up recommendations for antibiotics. Most likely cefazolin. (3) DVT (deep venous thrombosis): Received treatment with Eliquis only for 1 month. Off treatment for 2 months. Would most likely start patient on full dose Lovenox while during hospitalization for postoperative status once okay with the primary team. Will discharge on Eliquis 5 mg twice daily for 6-month course. Discussed in detail with patient. (4) Foot osteomyelitis: (5) Non-pressure ulcer of right lower extremity, limited to breakdown of skin: (6) Immunocompromised due to corticosteroids: Plan Continue other chronic medications including prednisone 10 mg oral daily, levothyroxine 175 mcg daily, lisinopril 5 mg oral daily, pantoprazole 40 mg oral daily. Plan for the day: PT/OT as per primary team. DC Frey catheter. Stop IV fluids. Antibiotics as per ID team. PICC line in AM. Follow-up blood culture, wound culture. Switch to full dose Lovenox as confirmed with the primary team for DVT. Will discharge on Eliquis 5 mg twice daily. Full code. Regular diet. Full dose Lovenox will suffice as DVT prophylaxis. Protonix for PUD prophylaxis Attestations Medical Necessity Statement*: Requires further hospitalization for management of infected left knee joint post arthroplasty while blood cultures and wound cultures are followed up for starting of outpatient antibiotics Diagnoses Encounter for postoperative care Z48.89 Infection of prosthetic knee joint T84.59XA; Z96.659 DVT (deep venous thrombosis) I82.409 Foot osteomyelitis M86.9 Non-pressure ulcer of right lower extremity, limited to breakdown of skin L97.911 Immunocompromised due to corticosteroids D84.821; T38.0X5A; Z79.52
--- NOTE | 2022-09-19 18:03 | PC.NURSE ---
GAVE VERBAL ORDER CHANGE FOR 60MG OF LOVENOX FROM 90MG LOVENOX
[2022-09-19] MEDS: enoxaparin 60 mg/0.6 mL Syringe SUBCUT (18:26)
--- NOTE | 2022-09-19 20:48 | XRR_ITS ---
PROCEDURE INFORMATION: Exam: XR Chest Exam date and time: 09/19/2022 7:53 PM Age: 51 years old Clinical indication: Device placement; Picc; Additional info: Picc placement TECHNIQUE: Imaging protocol: Radiologic exam of the chest. Views: 1 view. COMPARISON: CR XR chest 1V portable [id number] 05/18/2022 7:27 PM FINDINGS: Tubes, catheters and devices: Right PICC line with tip over the proximal SVC. Lungs: Unremarkable. No consolidation. Pleural spaces: Unremarkable. No pleural effusion. No pneumothorax. Heart/Mediastinum: Unremarkable. No cardiomegaly. Bones/joints: Unremarkable. XR/XR chest 1V portable [id number] IMPRESSION: No acute findings.
--- NOTE | 2022-09-19 21:08 | PC.NURSE ---
Consulted for PICC placement for LTA therapy. Upon arrival discussed procedure with pt and answered questions. Consent obtained. Assessed RUE and noted the brachial vein is best target at noted a small nerve near basilic vein around 1300 position. Noted brachial vein is about 4 mm in diameter and free of evidence of thrombus or stenosis and compressible. Using US guidance, MST, and sterile technique the R brachial vein was accessed x 1 stick. Device fed easily. Device aspirates and flushes easily. Chest xray ordered. Device secured and dressed. Chest xray demonstrates PICC appears to be lower 1/3 of SVC. Pending physician reading. EBL 5ml. Pt tolerated well. Noted RUE is 40 cm in circumference at 10 cm above the AC fossa. Noted the device is 39 cm long and inserted to hub. Report to GHISLAINE Nolen.
[2022-09-19] MEDS: diphenhydrAMINE 25 mg Capsule PO (21:47)
[2022-09-20] MEDS: ceFAZolin 2,000 MG in sodium chloride 0.9% (plus) 50 ML 100 MG IV ×2 (02:38→10:46)
[2022-09-20 06:01] VITALS: RESP 18
[2022-09-20] MEDS: oxyCODONE 5 mg IR Tab/Cap PO ×2 (06:01→10:48)
[2022-09-20] MEDS: acetaminophen 500 mg Tablet 1000 MG PO (06:02)
[2022-09-20] MEDS: enoxaparin 100 mg/mL Syringe 90 MG SUBCUT (06:02)
[2022-09-20] MEDS: CELEcoxib 200 mg Capsule PO (06:02)
[2022-09-20 06:25] LABS: Basophils # 0.1 10^3/uL (0.0-0.1); Basophils % 0.8 %; Eosinophils # 0.2 10^3/uL (0.0-0.8); Eosinophils % 1.3 %; Hematocrit 29.8 % (37.0-47.0); Hemoglobin 9.1 g/dL (11.5-15.3); Lymphocytes # 2.4 10^3/uL (0.8-4.8); Lymphocytes % 17.5 %; Mean Corpuscular HGB Conc 30.5 g/dL (30.0-36.0); Mean Corpuscular Hemoglobin 24.5 pg (28.0-34.0); Mean Corpuscular Volume 80.1 fl (81-99); Mean Platelet Volume 11.3 fL (7.4-10.4); Monocytes # 1.5 10^3/uL (0.2-0.9); Monocytes % 10.8 %; Neutrophils # 9.11 10^3/uL (1.8-7.7); Nucleated Red Blood Cells % 0 %; Platelet Count 386 10^3/cmm (130-400); Red Blood Count 3.72 10^6/uL (4.1-5.3); Red Cell Distribution Width 16.9 % (12.1-15.1); White Blood Count 13.4 10^3/uL (4.0-10.0)
[2022-09-20 07:03] LABS: Alanine Aminotransferase < 5 U/L (0-33); Albumin Level 2.4 g/dL (3.5-5.2); Alkaline Phosphatase 101 U/L (35-105); Anion Gap 13.9 (5-19); Aspartate Amino Transferase 10 U/L (0-32); Blood Urea Nitrogen 8 mg/dL (6-20); Calcium 8.4 mg/dL (8.5-10.5); Carbon Dioxide 21 mmol/L (22-29); Chloride 108 mmol/L (98-107); Creatinine Clr Calc Pharmacy 140.2807; Globulin 3.3 g/dL (1.3-4.6); Glomerular Filtration Rate 129.1 mL/min (90-130); Glucose 78 mg/dL (65-115); Osmolality Calculated 285 mOsm/kg (285-295); Potassium 3.9 mmol/L (3.5-5.1); Sodium 139 mmol/L (136-145); Total Bilirubin 0.2 mg/dL (0.15-1.2); Total Protein 5.7 g/dL (6.6-8.7)
[2022-09-20 08:00] VITALS: BP 134/78; PULSE 76; PULSE 77; RESP 16; RESP 18; TEMP 36.7; O2SAT 95; O2SAT 99
[2022-09-20] MEDS: gabapentin 300 mg Capsule PO (09:03)
[2022-09-20] MEDS: levothyroxine 175 mcg Tablet PO (09:04)
[2022-09-20 10:48] VITALS: RESP 18
[2022-09-20] MEDS: lisinopril 5 mg Tablet PO (11:49)
[2022-09-20] MEDS: predniSONE 10 mg Tablet PO (11:49)
[2022-09-20] MEDS: pantoprazole DR 40 mg Tablet PO (11:49)
[2022-09-20 12:00] VITALS: BP 153/82; PULSE 79; RESP 18; TEMP 37.1; O2SAT 98
--- NOTE | 2022-09-20 12:06 | PM.PN ---
Subjective Subjective: No acute vents overnight. Patient has remained hemodynamically stable and afebrile. Doing well. Sitting up in chair on examination today. Jovial. Leukocytosis is settling down. Denies any nausea, vomiting, headache. Asking if she can go home today. PICC line was placed yesterday evening. So far blood cultures have remained negative. MRSA negative. Vitals/I&O/Wt Last Vital Signs Temp 98.0 F 09/20/22 08:00 Pulse 76 09/20/22 08:00 Resp 18 09/20/22 10:48 BP 134/78 09/20/22 08:00 Pulse Ox 99 09/20/22 08:00 O2 Del Method Room Air 09/20/22 08:00 O2 Flow Rate 6 09/19/22 20:00 09/19/22 09/20/22 09/20/22 22:59 06:59 14:59 Intake Total 1778.333 / 3428.333 50 / 3478.333 290 / 290 Output Total 900 / 900 400 / 1300 Balance 878.333 / 2528.333 -350 / 2178.333 290 / 290 Weight last 48 hrs Weight 88.677 kg Physical Exam Narrative: General: No acute distress, AO x3, jovial, spouse at bedside, on room air, obese HEENT: PERRLA, pupils bilaterally equal and reactive Chest: Normal vesicular breath sounds, no added sounds, equal good air entry bilaterally CVS: S1-S2 regular, no murmurs, no tachycardia, no gallops, no rubs Abdomen: Soft, nontender, no organomegaly, bowel sounds present Neuro: No focal deficits, no facial deformity, AO x3, power 5/5 in all limbs Extremity: Left leg surgically bandaged without soakage Data 09/20/22 05:48 09/20/22 05:48 Micro: Microbiology 09/18/22 10:44 Anaerobic Culture - Preliminary Knee - #1 09/18/22 10:44 Gram Stain - Final Knee - #2 Abscess Culture - Preliminary Coag positive Staphylococcus 09/18/22 15:39 Blood Culture - Preliminary Blood NEGATIVE TO DATE 09/18/22 13:34 Blood Culture - Preliminary Blood NEGATIVE TO DATE 09/18/22 17:35 MRSA Culture - Final Nose A&P Assessment and plan (1) Encounter for postoperative care: Post left knee arthroplasty. Anticoagulation, physical therapy, pain regimen as per primary team. Would like to start patient on full dose anticoagulation for DVT as soon as possible. We confirm with primary team. Monitor hemoglobin. (2) Infection of prosthetic knee joint: ID consulted by primary team. We will follow-up recommendations for antibiotics. Most likely cefazolin. Qualifiers: Encounter type: initial encounter Qualified Code(s): T84.59XA - Infection and inflammatory reaction due to other internal joint prosthesis, initial encounter; Z96.659 - Presence of unspecified artificial knee joint (3) DVT (deep venous thrombosis): Received treatment with Eliquis only for 1 month. Off treatment for 2 months. Would most likely start patient on full dose Lovenox while during hospitalization for postoperative status once okay with the primary team. Will discharge on Eliquis 5 mg twice daily for 6-month course. Discussed in detail with patient. (4) Foot osteomyelitis: (5) Non-pressure ulcer of right lower extremity, limited to breakdown of skin: (6) Immunocompromised due to corticosteroids: Plan Continue other chronic medications including prednisone 10 mg oral daily, levothyroxine 175 mcg daily, lisinopril 5 mg oral daily, pantoprazole 40 mg oral daily. Patient is stable to be discharged from medical standpoint. She is to get IV cefazolin as per ID recommendation as an outpatient. PICC line has been placed. She is to follow-up weekly at [facility] for PICC line dressing and blood work which will be followed up with ID clinic as an outpatient. To follow-up with ID clinic and orthopedics as per their recommendations. She will be discharged on Eliquis 5 mg twice daily which she is to take for next 6 months. She has been explained and counseled about the medication in detail. She is to follow-up with a primary care provider within next 1 month for further refills of Eliquis. Continue with PT as an outpatient. Full code. Regular diet. Full dose Lovenox will suffice as DVT prophylaxis. Protonix for PUD prophylaxis Attestations Medical Necessity Statement*: As per primary team. Diagnoses Encounter for postoperative care Z48.89 Infection of prosthetic knee joint T84.59XA; Z96.659 Encounter type: initial encounter DVT (deep venous thrombosis) I82.409 Foot osteomyelitis M86.9 Non-pressure ulcer of right lower extremity, limited to breakdown of skin L97.911 Immunocompromised due to corticosteroids D84.821; T38.0X5A; Z79.52
[2022-09-20 14:14] VITALS: BP 153/82; PULSE 79; RESP 18; TEMP 37.1; O2SAT 98
--- NOTE | 2022-09-23 08:11 | PM.DCS ---
Discharge Providers Date of Admission: 09/18/22 12:11 Date of Discharge: September 20, 2022 Attending Provider at Admission: Devang Horan MD Attending Provider at Discharge: Devang Horan MD Primary Care Provider: Kylie Stewart DO Diagnoses at Discharge Discharge Diagnosis (1) Encounter for postoperative care: Status: Deleted (2) Infection of prosthetic knee joint: Status: Acute Qualifiers: Encounter type: initial encounter Qualified Code(s): T84.59XA - Infection and inflammatory reaction due to other internal joint prosthesis, initial encounter; Z96.659 - Presence of unspecified artificial knee joint (3) DVT (deep venous thrombosis): Status: Acute (4) Foot osteomyelitis: Status: Acute (5) Non-pressure ulcer of right lower extremity, limited to breakdown of skin: Status: Acute (6) Immunocompromised due to corticosteroids: Status: Acute Reason for Visit Reason for Visit: T84.59XA Brief History: See admission history and physical. Ms. Barbosa had aspiration documented deep infection and a left total knee arthroplasty in is admitted for removal of prosthesis and placement of antibiotic spacer Hospital Course Hospital Course The patient did well after surgery. Infectious disease consultation was obtained and antibiotic recommendations were made. Medicine hospitalist consultation was obtained and the anticoagulation was instituted for her history of a documented deep venous thromboses, incompletely treated. She did well with therapy and was discharged home by the second day. Physical Exam Narrative: On the day of discharge her dressing was clean and dry. She had a palpable left dorsalis pedis pulse. She will flex and send her toes and her ankle without motor deficits Discharge Data Studies Completed and Pending Completed Studies During Hospitalization Category Date Time Status XR chest 1V portable [id number] Stat Exams 09/19/22 20:48 Completed Pending at discharge Category Date Time Status Anaerobic Culture Routine Lab 09/18/22 10:44 Results Blood Culture Stat Lab 09/18/22 15:39 Results Radiology Impressions Chest X-Ray 09/19/22 20:48 IMPRESSION: No acute findings. Laboratory Results WBC 13.4 10^3/uL (4.0-10.0) H 09/20/22 05:48 RBC 3.72 10^6/uL (4.1-5.3) L 09/20/22 05:48 Hgb 9.1 g/dL (11.5-15.3) L 09/20/22 05:48 Hct 29.8 % (37.0-47.0) L 09/20/22 05:48 MCV 80.1 fl (81-99) L 09/20/22 05:48 MCH 24.5 pg (28.0-34.0) L 09/20/22 05:48 MCHC 30.5 g/dL (30.0-36.0) 09/20/22 05:48 RDW 16.9 % (12.1-15.1) H 09/20/22 05:48 Plt Count 386 10^3/cmm (130-400) 09/20/22 05:48 MPV 11.3 fL (7.4-10.4) H 09/20/22 05:48 Neut % (Auto) 68.0 % 09/20/22 05:48 Lymph % (Auto) 17.5 % 09/20/22 05:48 [place] % (Auto) 10.8 % 09/20/22 05:48 Eos % (Auto) 1.3 % 09/20/22 05:48 Baso % (Auto) 0.8 % 09/20/22 05:48 Neut # (Auto) 9.11 10^3/uL (1.8-7.7) H 09/20/22 05:48 Lymph # (Auto) 2.4 10^3/uL (0.8-4.8) 09/20/22 05:48 [place] # (Auto) 1.5 10^3/uL (0.2-0.9) H 09/20/22 05:48 Eos # (Auto) 0.2 10^3/uL (0.0-0.8) 09/20/22 05:48 Baso # (Auto) 0.1 10^3/uL (0.0-0.1) 09/20/22 05:48 Nucleated RBC % (auto) 0 % 09/20/22 05:48 Nucleated RBCs # 0.0 /100WBC 09/20/22 05:48 Sodium 139 mmol/L (136-145) 09/20/22 05:48 Potassium 3.9 mmol/L (3.5-5.1) 09/20/22 05:48 Chloride 108 mmol/L (98-107) H 09/20/22 05:48 Carbon Dioxide 21 mmol/L (22-29) L 09/20/22 05:48 Anion Gap 13.9 (5-19) 09/20/22 05:48 BUN 8 mg/dL (6-20) 09/20/22 05:48 Creatinine 0.5 mg/dL (0.5-0.9) 09/20/22 05:48 GFR Calculation 129.1 mL/min (90-130) 09/20/22 05:48 Glucose 78 mg/dL (65-115) 09/20/22 05:48 Estimat Average Glucose 114 09/19/22 04:10 Hemoglobin A1c 5.6 % (4.0-6.0) 09/19/22 04:10 Calculated Osmolality 285 mOsm/kg (285-295) 09/20/22 05:48 Calcium 8.4 mg/dL (8.5-10.5) L 09/20/22 05:48 Iron 13 ug/dL (37-145) L 09/18/22 13:34 TIBC 206 mcg/dl 09/18/22 13:34 % Saturation 6.3 % (20-50) L 09/18/22 13:34 Unsat Iron Binding 193 ug/dL (112-347) 09/18/22 13:34 Total Bilirubin 0.2 mg/dL (0.15-1.2) 09/20/22 05:48 AST 10 U/L (0-32) 09/20/22 05:48 ALT < 5 U/L (0-33) 09/20/22 05:48 Alkaline Phosphatase 101 U/L (35-105) 09/20/22 05:48 C-Reactive Protein 91.1 mg/L (0.0-4.9) H 09/18/22 13:34 Total Protein 5.7 g/dL (6.6-8.7) L 09/20/22 05:48 Albumin 2.4 g/dL (3.5-5.2) L 09/20/22 05:48 Globulin 3.3 g/dL (1.3-4.6) 09/20/22 05:48 Triglycerides 77 mg/dL (0-150) 09/19/22 04:10 Cholesterol 134 mg/dL (0-200) 09/19/22 04:10 LDL Cholesterol, Calc 92 mg/dL (50-129) 09/19/22 04:10 Total VLDL Cholesterol 15 mg/dL (0-30) 09/19/22 04:10 HDL Cholesterol 27 mg/dL (60-100) L 09/19/22 04:10 Cholesterol/HDL Ratio 4.96 mg/dL (0.0-4.40) H 09/19/22 04:10 Vitamin B12 908 pg/mL (232-1245) 09/18/22 13:34 Folate 9.5 ng/mL (4.8-37.3) 09/18/22 13:34 Procalcitonin 0.06 ng/mL (0-0.5) 09/18/22 13:34 TSH 1.83 uIU/mL (0.27-4.20) 09/18/22 13:34 Vitals Last Vital Signs Temp 98.7 F 09/20/22 14:14 Pulse 79 09/20/22 14:14 Resp 18 09/20/22 14:14 BP 153/82 09/20/22 14:14 Pulse Ox 98 09/20/22 14:14 O2 Del Method Room Air 09/20/22 12:00 O2 Flow Rate 6 09/19/22 20:00 Discharge Plan Discharge Patient Disposition: Home Condition: Stable Prescriptions: New celecoxib 200 mg Capsule 200 mg PO Q12H 14 Days Qty: 28 0RF acetaminophen 500 mg Tablet 1,000 mg PO Q8H 14 Days Qty: 84 0RF gabapentin 300 mg Capsule 300 mg PO BID@0900,2100 7 Days Qty: 14 0RF oxycodone 5 mg Tablet 5 mg PO Q4H PRN (Reason: Moderate Pain) 7 Days Qty: 30 0RF Eliquis 5 mg tablet 5 mg PO BID 90 Days Qty: 180 1RF Continued (DME) walker adjustable platform with padded cuff See Rx Instructions .Route .MEDSUPPLY Qty: 1 0RF Rx Instructions: As directed lisinopril 5 mg tablet 5 mg PO DAILY@12 Qty: 90 0RF tramadol 50 mg tablet 100 mg PO TID PRN (Reason: Pain) 30 Days Qty: 180 0RF prednisone 10 mg Tablet 10 mg PO DAILY@12 diphenhydramine HCl [Benadryl] 25 mg Capsule 25 mg PO BEDTIME leflunomide 20 mg tablet 20 mg PO DAILY@12 Hold Instructions: Resume on 06/24/22. pantoprazole 40 mg Tablet,Delayed Release (Dr/Ec) 40 mg PO DAILY@12 Qty: 30 0RF levothyroxine 175 mcg tablet 175 mcg PO DAILY Rx Instructions: TAKE 1 TABLET BY MOUTH DAILY Discontinued ibuprofen 800 mg Tablet 800 mg PO TID PRN (Reason: Pain) Discharge Orders: Discharge Order (Routine); Ordered 09/20/22 Ordered By: Devang Horan Other Ambulatory Orders: Miscellaneous Procedure (Order) Location: None Selected Ordered By: Priya Murphy Physical Therapy Eval and Treat Outpatient (Order) Timeframe: 3 Days Facility: [facility] - Location: Physical Therapy Ordered By: Devang Horan Referrals: Devang Horan MD [Physician] - 2 weeks (Clinic will call with appointment. ) Discharge Diet: Usual diet Discharge Activity: Limit activity as instructed Patient Instructions: Oxycodone/Acetaminophen (By mouth), Gabapentin (By mouth), Celecoxib (By mouth), Apixaban (By mouth), Opioid Safety Activity Restrictions/Additional Instructions: Antibiotics per Infectous Disease Service Anticoagulation per medicine service Change dressing as needed for drainange Home exercises per home health PT Use Walker Discharge Attestations Time Spent in Discharge Care*: other Status at Discharge: Cognitive status at discharge: cognitively intact, Behavioral status at discharge: cooperative, Quality Metrics Clinical Quality Measures [ No reported AMI, CVA or VTE this stay] Coding Level of Care Code Acute Code for Chg Fwd Diagnoses Encounter for postoperative care Z48.89 Infection of prosthetic knee joint T84.59XA; Z96.659 Encounter type: initial encounter DVT (deep venous thrombosis) I82.409 Foot osteomyelitis M86.9 Non-pressure ulcer of right lower extremity, limited to breakdown of skin L97.911 Immunocompromised due to corticosteroids D84.821; T38.0X5A; Z79.52
== END 2022-09-20 14:00 | disposition home health service (06) | DRG 468 ==
LOC: MEDSURG 12:11
PROVIDERS: Student in an Organized Health Care Education/Training Program; Admitting Provider Orthopaedic Surgery; PCP Family Medicine; Visit Provider Orthopaedic Surgery
PROC: 0SPD0JZ Removal of Synthetic Substitute from Left Knee Joint, Open Approach (ICD-10-PCS; principal; 2022-09-18 10:15)
DX: T84.54XA Infection and inflammatory reaction due to internal left knee prosthesis, initial encounter (principal); Y79.8 Miscellaneous orthopedic devices associated with adverse incidents, not elsewhere classified; B95.61 Methicillin susceptible Staphylococcus aureus infection as the cause of diseases classified elsewhere; Z79.52 Long term (current) use of systemic steroids; I10 Essential (primary) hypertension; E03.9 Hypothyroidism, unspecified; M05.89 Other rheumatoid arthritis with rheumatoid factor of multiple sites; M43.16 Spondylolisthesis, lumbar region; Z96.643 Presence of artificial hip joint, bilateral; Z86.718 Personal history of other venous thrombosis and embolism; Z79.891 Long term (current) use of opiate analgesic
CPT/HCPCS: 20610; 36415; 36569; 71045; 73502; 73560; 73565; 80053; 80061; 80503; 82607; 82746; 83036; 83540; 83550; 84145; 84443; 85018; 85025; 86140; 87040; 87070; 87075; 87077; 87186; 87205; 87641; 89050; 96372; 97110; 97116; 97162; 97166; 97530; 97535; 99214; C1776; J0690; J1100; J1170; J1650; J2175; J2250; J2370; J2405; J2704; J3010; J3260; J3370; J3490; J7030; J7512

== ENCOUNTER 2022-09-29 11:32 | Outpatient (RCR) | payer MEDICARE, SELFPAY | END 2022-10-17 23:59 | disposition home or self-care (01) | LOC: SPT 11:32 | PROVIDERS: PCP Family Medicine; Visit Provider Orthopaedic Surgery | DX: T84.54XD Infection and inflammatory reaction due to internal left knee prosthesis, subsequent encounter (principal); Y83.8 Other surgical procedures as the cause of abnormal reaction of the patient, or of later complication, without mention of misadventure at the time of the procedure | CPT/HCPCS: 97161 ==

== ENCOUNTER → 2022-10-08 14:07 | Outpatient (BNVA) | payer MEDICARE, SELFPAY | PROVIDERS: PCP Family Medicine; Visit Provider Orthopaedic Surgery | DX: T84.59XA Infection and inflammatory reaction due to other internal joint prosthesis, initial encounter (principal); Y79.2 Prosthetic and other implants, materials and accessory orthopedic devices associated with adverse incidents; Z96.652 Presence of left artificial knee joint | CPT/HCPCS: 99024 ==

== ENCOUNTER → 2022-10-09 13:26 | Outpatient (BNVA) | payer MEDICARE, SELFPAY | PROVIDERS: PCP Family Medicine; Visit Provider Student in an Organized Health Care Education/Training Program | DX: M05.79 Rheumatoid arthritis with rheumatoid factor of multiple sites without organ or systems involvement (principal); T84.59XA Infection and inflammatory reaction due to other internal joint prosthesis, initial encounter; Z96.659 Presence of unspecified artificial knee joint; A41.01 Sepsis due to Methicillin susceptible Staphylococcus aureus; T84.51XD Infection and inflammatory reaction due to internal right hip prosthesis, subsequent encounter | CPT/HCPCS: 99024; 99213 ==

== ENCOUNTER → 2022-10-15 14:37 | Outpatient (BNVA) | payer MEDICARE, SELFPAY | PROVIDERS: PCP Family Medicine; Visit Provider Orthopaedic Surgery | DX: T84.59XA Infection and inflammatory reaction due to other internal joint prosthesis, initial encounter (principal); Y79.2 Prosthetic and other implants, materials and accessory orthopedic devices associated with adverse incidents; Z96.652 Presence of left artificial knee joint | CPT/HCPCS: 99213 ==

== ENCOUNTER 2022-10-16 07:40 | Day surgery (SDC) | payer MEDICARE, SELFPAY ==
--- NOTE | 2022-10-15 16:54 | PC.NURSE ---
Dr. Horan told pt that it was ok to continue Eliquis as prescribed. Pt will not hold am dose prior to surgery
[2022-10-16] VITALS (11 sets, daily range): BP systolic 129–163; BP diastolic 69–116; PULSE 66–101; RESP 13–20; TEMP 36.1–37.1; O2SAT 96–99
--- NOTE | 2022-10-16 08:27 | P.ANESASSM_ITS ---
Pre-Anesthetic Assessment Height/Weight: Height 1.63 m Weight 81.647 kg O2 Del Method Room Air 10/16/22 08:19 Preop Diagnosis: Abscess left knee Operation Date: 10/16/22 09:35 Proposed Procedures p I&D left lower extremity/ 85337,T84.59XA; Z96.659(Left) - Devang Horan MD Familial anesthetic complications: None Was Beta Brandon taken within 24 hours: N/A Was Clonidine taken within 24 hours: N/A Last intake: Intake Last Liquid Date 10/15/22 Last Liquid Time 22:30 Last Solid Date 10/15/22 Last Solid Time 20:30 Social No alcohol and No tobacco Exam alert, oriented x 3, clear to auscultation bilaterally and regular rate & rhythm Airway Mallampati: Class III Dentition: false CV/HEM Deep Vein Thrombosis and Hypertension GI Gastroesophageal Reflux Disease Metabolic Thyroid Disease [facility] [place] Rheumatoid Arthritis (chronic steroid use) Anesthetic Plan ASA status: 3 Anesthesia: Choice Risk of > 500 ml blood loss (7ml/kg in children): No Medications/Allergies Home Medications Medication Instructions Recorded Confirmed Last Taken Type prednisone 10 mg tablet 10 mg PO DAILY@12 01/06/22 10/15/22 10/15/22 History walker adjustable platform with #1 ea 01/14/22 10/15/22 10/06/22 Rx padded cuff diphenhydramine HCl 25 mg capsule 25 mg PO BEDTIME 05/09/22 10/15/22 10/15/22 History (Benadryl) pantoprazole 40 mg tablet,delayed 40 mg PO DAILY@12 #30 tabs 05/27/22 10/15/22 10/15/22 Rx release lisinopril 5 mg tablet 5 mg PO DAILY@12 #90 tabs 07/23/22 10/15/22 10/15/22 Rx tramadol 50 mg tablet 100 mg PO TID PRN Pain 30 days 07/25/22 10/15/22 10/14/22 Rx #180 tabs levothyroxine 175 mcg tablet 175 mcg PO DAILY 09/17/22 10/15/22 10/15/22 History apixaban 5 mg tablet (Eliquis) 5 mg PO BID 90 days #180 tabs 09/20/22 10/15/22 10/14/22 Rx acetaminophen 500 mg tablet 1,000 mg PO BID 09/29/22 10/15/22 10/15/22 History Allergies Allergy/AdvReac Type Severity Reaction Status Date / Time Penicillins Allergy Severe ALGY-Anaphy Verified 10/16/22 08:16 laxis amoxicillin Allergy Unknown Verified 10/16/22 08:16 IV RA Meds Allergy ALGY-Anaphy Uncoded 10/16/22 08:16 laxis [facility] Anesthesia Medical History [place] Chronic steroid use Chronic use of steroids Foot osteomyelitis High risk medication use Hypertension Hypothyroidism Immunization counseling Leukocytosis Rheumatoid arthritis Rheumatoid arthritis flare Seropositive rheumatoid arthritis of multiple sites Spondylolisthesis at L4-L5 level Surgical History History of foot surgery x5 right History of hand surgery 2right hand, 1 left hand History of hip replacement, total bilateral Status post incision and drainage Status post left knee replacement Family History Other CAD (coronary artery disease) Cancer Hyperlipidemia Hypertension Denies family history of Rheumatoid arthritis Diabetes Lupus Chronic kidney disease (CKD) Lung disease Stroke Social History Smoking and tobacco status: never smoked Substance/Drug Use: former Data Anesthesia Cardiac Studies: Echocardiogram 05/14/22
[2022-10-16] MEDS: sodium chloride 0.9% 1,000 ML 30 ML IV (08:53)
[2022-10-16] MEDS: fentaNYL 50 mcg/mL INJ 2mL IVP (11:18)
--- NOTE | 2022-10-16 11:21 | W.PM.OPSUD ---
Surgery/Procedure H&P Update DATE OF PROCEDURE: October 16, 2022 DATE H&P PERFORMED: 10/15/22 H&P UPDATE INFORMATION: I have reviewed H&P completed within last 30 days PREOP DIAGNOSIS: Abscess left knee PLANNED PROCEDURE: Operation Date: 10/16/22 09:35 Proposed Procedures p I&D left lower extremity/ 98654,T84.59XA; Z96.659(Left) - Devang Horan MD
--- NOTE | 2022-10-16 11:23 | PM.OP ---
Operative Report Date of procedure: October 16, 2022 Pre-op diagnosis: Preop Diagnosis Abscess left knee Post-op diagnosis: same Pathology: other Pathology: 3 sets of routine and anaerobic cultures were sent. 1 culture was obtained from the anterior wound overlying the medial tibia. A second culture was obtained from fluid collections overlying the proximal anterior lateral musculature. A third culture was obtained of the aspirate from the knee. Anesthesia: General Estimated blood loss (mL): 10 Tourniquet time (min): 42 Condition: stable Disposition: PACU Brief History: The patient is a 51-year-old female with rheumatoid arthritis and a deep infection involving the left knee. She underwent removal of the an infected left total knee on 09/18/2022 and replacement of antibiotic spacers but had continued distal and posterior drainage. She is taken to the operating room for exploration of her anterior and posterior draining wounds and likely debridement of abscess tissue Procedure: The patient was taken to the operating room. She was given no antibiotics other than those scheduled for treatment of her prosthesis. Her left lower extremity was prepped and draped in the usual fashion. A timeout was performed. Initially the distal half of the anterior incision was opened including the small area of drainage. The dissection was carried down an additional 3 cm distal. Dissection was carried down full-thickness revealing a small fluid accumulation over the anterior medial proximal tibia. There did not appear to be communication within the knee joint. A first routine and anaerobic cultures were taken of this area. Dissection was then carried down laterally between the subcutaneous fat and lateral fascia revealing a larger fluid collection along the lateral aspect of the proximal leg. This fluid was a bit cloudier and more suggestive of persistent infection. A second set of routine and anaerobic cultures were taken. The leg was then held flexed at the hip to allow access to the small posterior wound. The wound was opened up distally however really no significant fluid collections were identified nor could any abscess fluid be expressed. The wound was not thought to communicate with either the medial or lateral abscess fluid and had a fairly benign appearance. All wounds were irrigated with pulsatile lavage. At no point through either wound was direct communication with the knee joint identified. No burden of necrotic or other compromised tissue quiring debridement was identified. Initially the posterior wound was closed with interrupted vertical mattress 1 Prolene sutures. The anterior and an incision was then closed passing 1 Prolene suture through the anterior lateral musculature fascia proximally and each end of the suture out the skin closing the space. The skin incision was then closed with interrupted 1 Prolene sutures. All wounds were covered with Xeroform gauze, sterile 4 x 4's, ABD pads, and a Curlex and a dressing. A compressive dressing consisting of cotton padding was applied from ankle to thigh and Rehan wrap applied. The patient was extubated and taken to recovery in stable condition.
[2022-10-16] MEDS: oxyCODONE-APAP 5-325 mg Tablet 1 TAB PO (11:55)
--- NOTE | 2022-10-16 12:37 | PC.NURSE ---
flushed picc with normal saline and then with heparin. Placed cap on end .
--- NOTE | 2022-10-16 17:24 | ANE.PACU2 ---
Inpatient post-anesthesia follow up: Airway intact: Yes Vital signs: Temperature 98.7 F Pulse Rate 71 Respiratory Rate 18 Blood Pressure 129/81 Pulse Oximetry 97 Oxygen Delivery Me thod Room Air Oxygen Flow Rate Fraction of Inspir ed Oxygen Hydration adequate: Yes Nausea and vomiting: No Pain level: 1 Mental status: Baseline
== END 2022-10-16 12:40 | disposition home or self-care (01) ==
PROVIDERS: PCP Family Medicine; Visit Provider Orthopaedic Surgery
PROC: (CPT 10061; principal; 2022-10-16 09:25)
DX: T84.59XA Infection and inflammatory reaction due to other internal joint prosthesis, initial encounter (principal); Y79.2 Prosthetic and other implants, materials and accessory orthopedic devices associated with adverse incidents; Z96.652 Presence of left artificial knee joint; Z86.718 Personal history of other venous thrombosis and embolism; I10 Essential (primary) hypertension; K21.9 Gastro-esophageal reflux disease without esophagitis; E03.9 Hypothyroidism, unspecified; Z79.02 Long term (current) use of antithrombotics/antiplatelets; Z79.52 Long term (current) use of systemic steroids
CPT/HCPCS: 10061; 87070; 87075; 87205; J1642; J2250; J2704; J3010; J7030

== ENCOUNTER 2022-10-28 12:40 | Outpatient (RCR) | payer MEDICARE, SELFPAY ==
[2022-09-29 10:10] VITALS: BP 148/96; PULSE 76; RESP 18; TEMP 36.6; O2SAT 98; BMI 30.9
[2022-09-29 10:26] LABS: Basophils # 0.1 10^3/uL (0.0-0.1); Eosinophils # 0.3 10^3/uL (0.0-0.8); Eosinophils % 2.5 %; Hematocrit 34.9 % (37.0-47.0); Hemoglobin 10.6 g/dL (11.5-15.3); Lymphocytes # 3.1 10^3/uL (0.8-4.8); Lymphocytes % 22.6 %; Mean Corpuscular HGB Conc 30.4 g/dL (30.0-36.0); Mean Corpuscular Hemoglobin 24.9 pg (28.0-34.0); Mean Corpuscular Volume 81.9 fl (81-99); Mean Platelet Volume 10.9 fL (7.4-10.4); Monocytes # 1.1 10^3/uL (0.2-0.9); Monocytes % 8.3 %; Neutrophils % 64.3 %; Nucleated Red Blood Cells % 0 %; Platelet Count 425 10^3/cmm (130-400); Red Blood Count 4.26 10^6/uL (4.1-5.3); Red Cell Distribution Width 18.5 % (12.1-15.1); White Blood Count 13.5 10^3/uL (4.0-10.0)
[2022-09-29 10:45] LABS: Alanine Aminotransferase < 5 U/L (0-33); Albumin Level 3.3 g/dL (3.5-5.2); Alkaline Phosphatase 128 U/L (35-105); Aspartate Amino Transferase 9 U/L (0-32); Globulin 3.8 g/dL (1.3-4.6); Glomerular Filtration Rate 104.6 mL/min (90-130); Total Bilirubin 0.2 mg/dL (0.15-1.2); Total Protein 7.1 g/dL (6.6-8.7)
[2022-10-06 09:50] VITALS: BP 139/76; PULSE 75; RESP 18; TEMP 36.3; O2SAT 96
[2022-10-06 10:01] LABS: Basophils # 0.1 10^3/uL (0.0-0.1); Basophils % 0.9 %; Eosinophils # 0.7 10^3/uL (0.0-0.8); Eosinophils % 5.3 %; Hematocrit 33.7 % (37.0-47.0); Hemoglobin 10.2 g/dL (11.5-15.3); Lymphocytes # 2.8 10^3/uL (0.8-4.8); Lymphocytes % 22.9 %; Mean Corpuscular HGB Conc 30.3 g/dL (30.0-36.0); Mean Corpuscular Hemoglobin 25.1 pg (28.0-34.0); Mean Platelet Volume 11.6 fL (7.4-10.4); Monocytes # 1.3 10^3/uL (0.2-0.9); Monocytes % 10.5 %; Neutrophils # 7.28 10^3/uL (1.8-7.7); Neutrophils % 59.2 %; Nucleated Red Blood Cells % 0 %; Platelet Count 330 10^3/cmm (130-400); Red Blood Count 4.06 10^6/uL (4.1-5.3); Red Cell Distribution Width 18.6 % (12.1-15.1); White Blood Count 12.3 10^3/uL (4.0-10.0)
[2022-10-06 10:29] LABS: Alanine Aminotransferase < 5 U/L (0-33); Albumin Level 3.4 g/dL (3.5-5.2); Alkaline Phosphatase 127 U/L (35-105); Aspartate Amino Transferase 9 U/L (0-32); Globulin 3.4 g/dL (1.3-4.6); Glomerular Filtration Rate 87.5 mL/min (90-130); Total Bilirubin 0.2 mg/dL (0.15-1.2); Total Protein 6.8 g/dL (6.6-8.7)
[2022-10-13 10:00] VITALS: BP 152/79; PULSE 68; RESP 18; TEMP 36.1; O2SAT 99
[2022-10-13 10:02] LABS: Basophils # 0.1 10^3/uL (0.0-0.1); Basophils % 0.8 %; Eosinophils # 0.7 10^3/uL (0.0-0.8); Eosinophils % 5.5 %; Hematocrit 33.7 % (37.0-47.0); Hemoglobin 10.3 g/dL (11.5-15.3); Lymphocytes # 2.5 10^3/uL (0.8-4.8); Lymphocytes % 19.4 %; Mean Corpuscular HGB Conc 30.6 g/dL (30.0-36.0); Mean Corpuscular Hemoglobin 25.4 pg (28.0-34.0); Mean Corpuscular Volume 83.2 fl (81-99); Mean Platelet Volume 11.8 fL (7.4-10.4); Monocytes % 7.9 %; Neutrophils # 8.55 10^3/uL (1.8-7.7); Neutrophils % 65.2 %; Nucleated Red Blood Cells % 0 %; Platelet Count 315 10^3/cmm (130-400); Red Blood Count 4.05 10^6/uL (4.1-5.3); White Blood Count 13.1 10^3/uL (4.0-10.0)
[2022-10-13 11:04] LABS: Alanine Aminotransferase < 5 U/L (0-33); Albumin Level 3.4 g/dL (3.5-5.2); Alkaline Phosphatase 112 U/L (35-105); Aspartate Amino Transferase 10 U/L (0-32); Globulin 3.4 g/dL (1.3-4.6); Glomerular Filtration Rate 104.6 mL/min (90-130); Total Bilirubin 0.2 mg/dL (0.15-1.2); Total Protein 6.8 g/dL (6.6-8.7)
--- NOTE | 2022-10-13 11:40 | PC.NURSE ---
Pt to [facility] inf[facility] for PICC dressing change and lab draw. Dr. Murphy's office notified of lab results. Results faxed to home infusion company [facility], as well.
[2022-10-20 10:16] LABS: Basophils # 0.1 10^3/uL (0.0-0.1); Basophils % 0.8 %; Eosinophils # 0.6 10^3/uL (0.0-0.8); Hematocrit 33.2 % (37.0-47.0); Hemoglobin 10.2 g/dL (11.5-15.3); Lymphocytes % 19.7 %; Mean Corpuscular HGB Conc 30.7 g/dL (30.0-36.0); Mean Corpuscular Hemoglobin 25.9 pg (28.0-34.0); Mean Corpuscular Volume 84.3 fl (81-99); Monocytes # 1.2 10^3/uL (0.2-0.9); Monocytes % 7.7 %; Neutrophils # 10.11 10^3/uL (1.8-7.7); Nucleated Red Blood Cells % 0 %; Platelet Count 272 10^3/cmm (130-400); Red Blood Count 3.94 10^6/uL (4.1-5.3); Red Cell Distribution Width 18.7 % (12.1-15.1); White Blood Count 15.3 10^3/uL (4.0-10.0)
[2022-10-20 10:29] VITALS: BP 157/91; PULSE 64; RESP 18; TEMP 35.9; O2SAT 100
--- NOTE | 2022-10-20 10:29 | PC.NURSE ---
Pt states she had additional ortho surgery on her left leg on 10/16/22. States the ortho doctor told her her IV antibiotics will need extended for [address] Murphy, ID, office notified. Awaiting updated orders.
[2022-10-20 10:30] LABS: Alanine Aminotransferase < 5 U/L (0-33); Albumin Level 3.5 g/dL (3.5-5.2); Alkaline Phosphatase 93 U/L (35-105); Aspartate Amino Transferase 8 U/L (0-32); Globulin 3.3 g/dL (1.3-4.6); Glomerular Filtration Rate 104.6 mL/min (90-130); Total Bilirubin 0.2 mg/dL (0.15-1.2); Total Protein 6.8 g/dL (6.6-8.7)
[2022-10-28 12:45] VITALS: BP 145/65; PULSE 80; RESP 18; TEMP 36.5; O2SAT 99
--- NOTE | 2022-10-28 12:45 | PC.NURSE ---
Pt to GI infusions for PICC dressing change and lab draw. Lab results sent to [facility] and Dr. Murphy's office as requested.
[2022-10-28 13:03] LABS: Basophils # 0.1 10^3/uL (0.0-0.1); Basophils % 0.8 %; Eosinophils # 0.6 10^3/uL (0.0-0.8); Eosinophils % 4.5 %; Hematocrit 34.3 % (37.0-47.0); Hemoglobin 10.4 g/dL (11.5-15.3); Lymphocytes # 2.4 10^3/uL (0.8-4.8); Lymphocytes % 19.5 %; Mean Corpuscular HGB Conc 30.3 g/dL (30.0-36.0); Mean Corpuscular Hemoglobin 25.4 pg (28.0-34.0); Mean Corpuscular Volume 83.7 fl (81-99); Monocytes # 1.1 10^3/uL (0.2-0.9); Monocytes % 9.1 %; Nucleated Red Blood Cells % 0 %; Platelet Count 317 10^3/cmm (130-400); Red Cell Distribution Width 18.8 % (12.1-15.1); White Blood Count 12.2 10^3/uL (4.0-10.0)
[2022-10-28 13:24] LABS: Alanine Aminotransferase < 5 U/L (0-33); Albumin Level 3.4 g/dL (3.5-5.2); Alkaline Phosphatase 101 U/L (35-105); Aspartate Amino Transferase 10 U/L (0-32); Globulin 4.1 g/dL (1.3-4.6); Glomerular Filtration Rate 104.6 mL/min (90-130); Total Bilirubin 0.2 mg/dL (0.15-1.2); Total Protein 7.5 g/dL (6.6-8.7)
== END 2022-10-29 23:59 | disposition home or self-care (01) ==
LOC: GILAB 12:40
PROVIDERS: PCP Family Medicine; Visit Provider Student in an Organized Health Care Education/Training Program
DX: T84.59XA Infection and inflammatory reaction due to other internal joint prosthesis, initial encounter (principal); Y99.9 Unspecified external cause status; Z96.652 Presence of left artificial knee joint
CPT/HCPCS: 36415; 36592; 80076; 82565; 85025

== ENCOUNTER → 2022-10-29 10:27 | Outpatient (BNVA) | payer MEDICARE, SELFPAY | PROVIDERS: PCP Family Medicine; Visit Provider Orthopaedic Surgery | DX: T84.59XA Infection and inflammatory reaction due to other internal joint prosthesis, initial encounter (principal); Z96.652 Presence of left artificial knee joint; Y79.2 Prosthetic and other implants, materials and accessory orthopedic devices associated with adverse incidents | CPT/HCPCS: 99024 ==

== ENCOUNTER → 2022-11-05 15:53 | Outpatient (BNVA) | payer MEDICARE, SELFPAY | PROVIDERS: PCP Family Medicine; Visit Provider Nurse Practitioner Family | DX: T84.59XA Infection and inflammatory reaction due to other internal joint prosthesis, initial encounter (principal); Z96.652 Presence of left artificial knee joint; Y79.2 Prosthetic and other implants, materials and accessory orthopedic devices associated with adverse incidents | CPT/HCPCS: 73560; 73565; 99024; 99213 ==

== ENCOUNTER → 2022-11-20 15:34 | Outpatient (BNVA) | payer MEDICARE, SELFPAY | PROVIDERS: PCP Family Medicine; Visit Provider Student in an Organized Health Care Education/Training Program | DX: T84.59XA Infection and inflammatory reaction due to other internal joint prosthesis, initial encounter (principal); Z96.659 Presence of unspecified artificial knee joint; A41.01 Sepsis due to Methicillin susceptible Staphylococcus aureus; T84.51XD Infection and inflammatory reaction due to internal right hip prosthesis, subsequent encounter; M05.79 Rheumatoid arthritis with rheumatoid factor of multiple sites without organ or systems involvement; X58.XXXA Exposure to other specified factors, initial encounter; X58.XXXD Exposure to other specified factors, subsequent encounter | CPT/HCPCS: 99214 ==

== ENCOUNTER 2022-11-24 09:55 | Outpatient (RCR) | payer MEDICARE, SELFPAY ==
[2022-11-03 10:10] VITALS: BP 137/68; PULSE 84; RESP 18; TEMP 36.2; O2SAT 94
[2022-11-03 10:21] LABS: Basophils # 0.1 10^3/uL (0.0-0.1); Basophils % 0.9 %; Eosinophils # 0.5 10^3/uL (0.0-0.8); Eosinophils % 3.7 %; Hematocrit 34.8 % (37.0-47.0); Hemoglobin 10.8 g/dL (11.5-15.3); Lymphocytes # 2.8 10^3/uL (0.8-4.8); Lymphocytes % 20.5 %; Mean Corpuscular Volume 83.9 fl (81-99); Mean Platelet Volume 11.5 fL (7.4-10.4); Monocytes # 1.2 10^3/uL (0.2-0.9); Monocytes % 8.9 %; Neutrophils # 8.85 10^3/uL (1.8-7.7); Neutrophils % 64.6 %; Nucleated Red Blood Cells % 0 %; Platelet Count 335 10^3/cmm (130-400); Red Blood Count 4.15 10^6/uL (4.1-5.3); Red Cell Distribution Width 18.8 % (12.1-15.1); White Blood Count 13.7 10^3/uL (4.0-10.0)
[2022-11-03 10:41] LABS: Alanine Aminotransferase < 5 U/L (0-33); Albumin Level 3.7 g/dL (3.5-5.2); Alkaline Phosphatase 93 U/L (35-105); Aspartate Amino Transferase 11 U/L (0-32); Globulin 3.4 g/dL (1.3-4.6); Glomerular Filtration Rate 104.6 mL/min (90-130); Total Bilirubin 0.2 mg/dL (0.15-1.2); Total Protein 7.1 g/dL (6.6-8.7)
[2022-11-10 09:05] VITALS: BP 150/96; PULSE 85; RESP 18; TEMP 35.7; O2SAT 99
[2022-11-10 09:20] LABS: Basophils # 0.1 10^3/uL (0.0-0.1); Basophils % 0.9 %; Eosinophils # 0.5 10^3/uL (0.0-0.8); Eosinophils % 3.8 %; Hematocrit 36.8 % (37.0-47.0); Hemoglobin 11.1 g/dL (11.5-15.3); Lymphocytes # 3.1 10^3/uL (0.8-4.8); Lymphocytes % 22.6 %; Mean Corpuscular HGB Conc 30.2 g/dL (30.0-36.0); Mean Corpuscular Hemoglobin 25.6 pg (28.0-34.0); Monocytes # 1.3 10^3/uL (0.2-0.9); Monocytes % 9.2 %; Neutrophils # 8.61 10^3/uL (1.8-7.7); Neutrophils % 62.1 %; Nucleated Red Blood Cells % 0 %; Platelet Count 292 10^3/cmm (130-400); Red Blood Count 4.33 10^6/uL (4.1-5.3); Red Cell Distribution Width 18.8 % (12.1-15.1); White Blood Count 13.9 10^3/uL (4.0-10.0)
[2022-11-10 09:38] LABS: Alanine Aminotransferase < 5 U/L (0-33); Albumin Level 3.6 g/dL (3.5-5.2); Alkaline Phosphatase 109 U/L (35-105); Aspartate Amino Transferase 17 U/L (0-32); Globulin 3.6 g/dL (1.3-4.6); Glomerular Filtration Rate 87.2 mL/min (90-130); Total Bilirubin 0.2 mg/dL (0.15-1.2); Total Protein 7.2 g/dL (6.6-8.7)
[2022-11-17 10:00] VITALS: BP 118/69; PULSE 69; RESP 18; TEMP 36.1; O2SAT 99
[2022-11-17 10:09] LABS: Basophils # 0.1 10^3/uL (0.0-0.1); Basophils % 0.8 %; Eosinophils # 0.5 10^3/uL (0.0-0.8); Eosinophils % 3.5 %; Hematocrit 35.8 % (37.0-47.0); Hemoglobin 10.7 g/dL (11.5-15.3); Lymphocytes # 3.2 10^3/uL (0.8-4.8); Lymphocytes % 23.1 %; Mean Corpuscular HGB Conc 29.9 g/dL (30.0-36.0); Mean Corpuscular Hemoglobin 25.3 pg (28.0-34.0); Mean Corpuscular Volume 84.6 fl (81-99); Mean Platelet Volume 12.1 fL (7.4-10.4); Monocytes # 1.2 10^3/uL (0.2-0.9); Monocytes % 8.4 %; Neutrophils # 8.57 10^3/uL (1.8-7.7); Neutrophils % 62.6 %; Nucleated Red Blood Cells % 0 %; Platelet Count 295 10^3/cmm (130-400); Red Blood Count 4.23 10^6/uL (4.1-5.3); Red Cell Distribution Width 18.6 % (12.1-15.1); White Blood Count 13.7 10^3/uL (4.0-10.0)
[2022-11-17 10:26] LABS: Alanine Aminotransferase < 5 U/L (0-33); Albumin Level 3.5 g/dL (3.5-5.2); Alkaline Phosphatase 102 U/L (35-105); Aspartate Amino Transferase 11 U/L (0-32); Globulin 3.5 g/dL (1.3-4.6); Glomerular Filtration Rate 104.2 mL/min (90-130); Total Bilirubin 0.2 mg/dL (0.15-1.2)
[2022-11-24 10:10] VITALS: BP 152/90; PULSE 77; RESP 18; TEMP 36.2; O2SAT 100
[2022-11-24 10:32] LABS: Basophils # 0.1 10^3/uL (0.0-0.1); Basophils % 0.9 %; Eosinophils # 0.4 10^3/uL (0.0-0.8); Hematocrit 37.4 % (37.0-47.0); Hemoglobin 11.6 g/dL (11.5-15.3); Lymphocytes # 2.8 10^3/uL (0.8-4.8); Mean Corpuscular Hemoglobin 26.1 pg (28.0-34.0); Mean Corpuscular Volume 84.2 fl (81-99); Mean Platelet Volume 12.1 fL (7.4-10.4); Neutrophils # 8.29 10^3/uL (1.8-7.7); Neutrophils % 64.9 %; Nucleated Red Blood Cells % 0 %; Platelet Count 342 10^3/cmm (130-400); Red Blood Count 4.44 10^6/uL (4.1-5.3); Red Cell Distribution Width 18.7 % (12.1-15.1); White Blood Count 12.8 10^3/uL (4.0-10.0)
[2022-11-24 10:52] LABS: Alanine Aminotransferase < 5 U/L (0-33); Albumin Level 3.7 g/dL (3.5-5.2); Alkaline Phosphatase 98 U/L (35-105); Aspartate Amino Transferase 12 U/L (0-32); Globulin 3.4 g/dL (1.3-4.6); Glomerular Filtration Rate 104.2 mL/min (90-130); Total Bilirubin 0.2 mg/dL (0.15-1.2); Total Protein 7.1 g/dL (6.6-8.7)
--- NOTE | 2022-11-24 13:18 | PC.NURSE ---
PICC removed as ordered. Pressure held until hemostasis achieved. Site without redness, swelling, or signs of infection. Pt educated to return to ED for SOB or chest pain and to PCP for any signs of infection.
== END 2022-11-28 23:59 | disposition home or self-care (01) ==
LOC: GILAB 09:55
PROVIDERS: PCP Family Medicine; Visit Provider Student in an Organized Health Care Education/Training Program
DX: T84.59XA Infection and inflammatory reaction due to other internal joint prosthesis, initial encounter (principal); Y99.9 Unspecified external cause status
CPT/HCPCS: 36415; 36592; 80076; 82565; 85025; 86140

== ENCOUNTER → 2022-12-10 11:07 | Outpatient (BNVA) | payer MEDICARE, SELFPAY | PROVIDERS: PCP Family Medicine; Visit Provider Specialist | DX: T84.51XD Infection and inflammatory reaction due to internal right hip prosthesis, subsequent encounter (principal); Y79.2 Prosthetic and other implants, materials and accessory orthopedic devices associated with adverse incidents; R60.0 Localized edema; Z96.652 Presence of left artificial knee joint | CPT/HCPCS: 73560; 73565; 99215 ==

== ENCOUNTER → 2023-01-01 11:00 | Outpatient (BNVA) | payer MEDICARE, SELFPAY | PROVIDERS: PCP Family Medicine; Visit Provider Student in an Organized Health Care Education/Training Program | DX: T84.59XA Infection and inflammatory reaction due to other internal joint prosthesis, initial encounter (principal); Z96.659 Presence of unspecified artificial knee joint; Y99.9 Unspecified external cause status | CPT/HCPCS: 36415; 85651; 86140; 99214 ==

== ENCOUNTER → 2023-01-05 15:24 | Outpatient (BNVA) | payer MEDICARE, SELFPAY | PROVIDERS: PCP Family Medicine; Visit Provider Specialist | DX: T84.59XA Infection and inflammatory reaction due to other internal joint prosthesis, initial encounter (principal); Z96.652 Presence of left artificial knee joint; Y79.2 Prosthetic and other implants, materials and accessory orthopedic devices associated with adverse incidents; Z79.01 Long term (current) use of anticoagulants | CPT/HCPCS: 99214 ==

== ENCOUNTER 2023-01-13 14:08 | Day surgery (SDC) | payer MEDICARE, SELFPAY ==
[2023-01-12 08:50] VITALS: BMI 31.7
[2023-01-13] VITALS (9 sets, daily range): BP systolic 126–166; BP diastolic 79–106; PULSE 70–89; RESP 13–18; TEMP 36.2–36.4; O2SAT 94–100
--- NOTE | 2023-01-13 14:46 | ANES.PREANE2 ---
Pre-Anesthetic Assessment Height/Weight: Height 1.63 m Weight 83.915 kg Temp Pulse Resp BP Pulse Ox O2 Del Method 97.6 F 71 17 151/106 100 Room Air 01/13/23 14:37 01/13/23 14:37 01/13/23 14:37 01/13/23 14:37 01/13/23 14:37 01/13/23 14:37 Operation Date: 01/13/23 15:40 Proposed Procedures p EFT KNEE INCISION AND DEBRIDEMENT OF POST OPERATIVE WOUND WITH WOUND VAC PLACEMENT 10635 [id number],T84.59X5 796.659 T84.51XD(Left) - Aliza Otto MD s Wound Vac Placement(Left) - Aliza Otto MD Familial anesthetic complications: none Was Beta Brandon taken within 24 hours: N/A Was Clonidine taken within 24 hours: N/A Last intake: Intake Last Liquid Date 01/13/23 Last Liquid Time 08:00 Last Solid Date 01/12/23 Last Solid Time 21:00 Social No alcohol and No tobacco Exam alert, oriented x 3, clear to auscultation bilaterally and regular rate & rhythm Airway Submandibular: within normal limits Cervical ROM: within normal limits Mallampati: Class III Dentition: false (upper) CV/HEM Deep Vein Thrombosis GI Gastroesophageal Reflux Disease Metabolic Morbid Obesity and Thyroid Disease Chronic steroid Musc/skel Osteoarthritis/DJD and Rheumatoid Arthritis Anesthetic Plan ASA status: 3 Anesthesia: General Medications/Allergies Home Medications Medication Instructions Recorded Confirmed Last Taken Type prednisone 10 mg tablet 10 mg PO DAILY@12 01/06/22 01/07/23 01/12/23 History walker adjustable platform with #1 ea 01/14/22 01/05/23 11/03/22 Rx padded cuff diphenhydramine HCl 25 mg capsule 25 mg PO BEDTIME 05/09/22 01/13/23 01/12/23 History (Benadryl) tramadol 50 mg tablet 100 mg PO TID PRN Pain 30 days 07/25/22 01/07/23 01/12/23 Rx #180 tabs apixaban 5 mg tablet (Eliquis) 5 mg PO BID 90 days #180 tabs 09/20/22 01/07/23 01/07/23 Rx cefadroxil 500 mg capsule 1,000 mg PO BID 30 days #120 caps 11/24/22 01/13/23 01/13/23 Rx levothyroxine 175 mcg tablet 175 mcg PO DAILY #90 tabs 12/01/22 01/07/23 01/12/23 Rx hydrochlorothiazide 25 mg tablet 25 mg PO QAM #30 tabs 12/22/22 01/07/23 01/12/23 Rx Allergies Allergy/AdvReac Type Severity Reaction Status Date / Time Penicillins Allergy Severe ALGY-Anaphy Verified 01/13/23 14:19 laxis amoxicillin Allergy Unknown Verified 01/13/23 14:19 IV RA Meds Allergy ALGY-Anaphy Uncoded 01/13/23 14:19 laxis PFSH Anesthesia Medical History Bullae Chronic steroid use Chronic use of steroids Foot osteomyelitis High risk medication use Hypertension Hypothyroidism Immunization counseling Leukocytosis Rheumatoid arthritis Rheumatoid arthritis flare Seropositive rheumatoid arthritis of multiple sites Spondylolisthesis at L4-L5 level Surgical History History of foot surgery x5 right History of hand surgery 2right hand, 1 left hand History of hip replacement, total bilateral Status post incision and drainage Status post left knee replacement Family History Other CAD (coronary artery disease) Cancer Hyperlipidemia Hypertension Denies family history of Rheumatoid arthritis Diabetes Lupus Chronic kidney disease (CKD) Lung disease Stroke Social History Smoking and tobacco status: never smoked Substance/Drug Use: former Data Anesthesia Cardiac Studies: Echocardiogram 05/14/22
[2023-01-13] MEDS: sodium chloride 0.9% 1,000 ML 30 ML IV (15:11)
--- NOTE | 2023-01-13 15:46 | W.PM.OPSUD ---
Surgery/Procedure H&P Update DATE OF PROCEDURE: January 13, 2023 DATE H&P PERFORMED: 01/05/23 H&P UPDATE INFORMATION: I have reviewed H&P completed within last 30 days, I have examined patient prior to procedure, No changes to prior documentation and H&P is in [facility] EMR on date indicated PLANNED PROCEDURE: Operation Date: 01/13/23 15:40 Proposed Procedures p EFT KNEE INCISION AND DEBRIDEMENT OF POST OPERATIVE WOUND WITH WOUND VAC PLACEMENT [id number],T84.59X5 796.659 T84.51XD(Left) - Aliza Otto MD s Wound Vac Placement(Left) - Aliza Otto MD Related Problem List Diagnoses (1) Infection of prosthetic knee joint: Qualifiers: Encounter type: sequela Qualified Code(s): T84.59XS - Infection and inflammatory reaction due to other internal joint prosthesis, sequela; Z96.659 - Presence of unspecified artificial knee joint
[2023-01-13] MEDS: vancomycin 1,000 MG in sodium chloride 0.9% 250 ML 250 MG IV (16:28)
[2023-01-13] MEDS: ceFAZolin 1,000 mg SDV 3000 MG IRRIGATION (16:56)
--- NOTE | 2023-01-13 17:35 | P.OP_ITS ---
Operative Report Date of procedure: January 13, 2023 Pre-op diagnosis: Sinus tract into knee with temporary prosthetic spacers Post-op diagnosis: Sinus tract into knee with temporary prosthetic spacers Post-op findings: Tracking of sinus into knee. Procedure done: Excision of sinus tract with excision of skin and subcutaneous tissues and small arthrotomy with debridement of synovial tissues. Irrigation and primary closure Implants: None Specimens removed/disposition: Cultures Surgeon: Aliza Otto Certified Surgical Technician: None Anesthesia: General (General per LMA, ASA 3) Estimated blood loss (mL): 30 Tourniquet time (min): 0 (Not utilized) IV fluids (mL): 200 Urine output (mL): 0 (No Frey) Complications: None Findings: Sinus tract connecting to the intra-articular spacer prosthesis. Necrotic tissue. Condition: stable Disposition: PACU (Then return to same-day surgery for discharge to home) Brief History: This 52-year-old woman presented to the hospital in May with an infected right total hip and history of left total knee arthroplasty. The hip arthroplasty had been placed remotely, and the knee arthroplasty had been previously placed by Dr. Horan. As he was going out of town, he took care of an I&D of the posterior aspect of the knee and did not feel the total knee was infected. The hip, was infected, and therefore, hardware was removed by me at that time with a spacer implant. As time passed, the knee remains swollen, and aspiration demonstrated that it was indeed infected. Dr. Horan took the knee out and placed temporary prosthesis. The patient has been on an IV antibiotic course as well as subsequent oral antibiotics. She has been followed by Dr. Murphy. As Dr. Horan is no longer with the organization, she came to me with a distal wound that was not healing. It drained regularly, and I felt that this was joint fluid and connected to her knee and prosthesis. After discussion with her, we elected to proceed with excision of the sinus and attempt at primary closure. Wound VAC was also discussed, but the patient would have to remain in the hospital initially, and she was adamant that she did not wish to be admitted. Procedure: The patient was brought to the operating theater, and after undergoing adequate general anesthesia per LMA, the left lower extremity was prepped and draped in usual fashion following placement of a tourniquet high on the leg. The leg was then draped free with the prepping accomplished with DuraPrep. Tourniquet was not elevated during the case. Surgical pause was performed, and at the time of the surgical pause we confirmed the site and side of surgery. Additionally, we confirmed the appropriate and timely administration of preoperative antibiotics, vancomycin 1 g. The availability of equipment was confirmed, and the patient's identity was verbalized as well. Following the surgical pause, an incision was made ellipsing the sinus tract from the distal incision utilized for the total knee arthroplasty. This left a defect in the soft tissues, but the soft tissues were undermined. Rongeur was used to further debride up into the knee joint as well as a curette. Fibrous type tissue and necrotic tissue was removed. Following this, the wound was irrigated with 3 L of normal saline containing Ancef. Cultures were obtained prior to this irrigation. After the knee was irrigated, it was further evaluated. It appeared that we would possibly be able to do a primary closure. #1 PDS was used deep followed by 2-0 Monocryl. And with that, under some tension, we were able to reapproximate the edges of her skin. This was followed by skin lan and Dermabond. An OpSite was then placed. This was followed by sterile soft roll and an Rehan wrap. Patient was returned to the PACU in satisfactory condition. She will be discharged to home to follow-up with me in the office. Related Problem List Diagnoses (1) Infection of prosthetic knee joint: (2) Draining cutaneous sinus tract:
[2023-01-13] MEDS: meperidine 50 mg/mL INJ 12.5 MG IVP (17:49)
--- NOTE | 2023-01-14 08:31 | ANE.PACU2 ---
Inpatient post-anesthesia follow up: Airway intact: Yes Vital signs: Temperature 97.5 F Pulse Rate 70 Respiratory Rate 18 Blood Pressure 126/83 Pulse Oximetry 95 Oxygen Delivery Me thod Room Air Oxygen Flow Rate 8 Fraction of Inspir ed Oxygen Hydration adequate: Yes Nausea and vomiting: No Pain level: 2 Mental status: Baseline
== END 2023-01-13 18:55 | disposition home or self-care (01) ==
PROVIDERS: Absent Provider Student in an Organized Health Care Education/Training Program; PCP Family Medicine; Visit Provider Specialist
PROC: (CPT 27301; principal; 2023-01-13 15:30)
DX: T84.54XA Infection and inflammatory reaction due to internal left knee prosthesis, initial encounter (principal); K21.9 Gastro-esophageal reflux disease without esophagitis; E66.01 Morbid (severe) obesity due to excess calories; Z86.718 Personal history of other venous thrombosis and embolism; Z68.31 Body mass index [BMI] 31.0-31.9, adult; Z79.899 Other long term (current) drug therapy; Z79.52 Long term (current) use of systemic steroids; Z88.0 Allergy status to penicillin; Y83.8 Other surgical procedures as the cause of abnormal reaction of the patient, or of later complication, without mention of misadventure at the time of the procedure; E03.9 Hypothyroidism, unspecified; M05.9 Rheumatoid arthritis with rheumatoid factor, unspecified
CPT/HCPCS: 27301; 87070; 87075; 87077; 87186; 87205; J0690; J1100; J1170; J1200; J2175; J2371; J2405; J2704; J3010; J3370; J7030; J7050

== ENCOUNTER → 2023-01-19 11:30 | Outpatient (BNVA) | payer MEDICARE, SELFPAY | PROVIDERS: PCP Family Medicine; Visit Provider Family Medicine | DX: I10 Essential (primary) hypertension (principal); M54.50 Low back pain, unspecified | CPT/HCPCS: 80048 ==

== ENCOUNTER → 2023-01-28 09:49 | Outpatient (BNVA) | payer MEDICARE, SELFPAY | PROVIDERS: PCP Family Medicine; Visit Provider Nurse Practitioner Family | DX: Z98.890 Other specified postprocedural states (principal); T84.59XS Infection and inflammatory reaction due to other internal joint prosthesis, sequela; Z96.652 Presence of left artificial knee joint; X58.XXXS Exposure to other specified factors, sequela | CPT/HCPCS: 99213 ==

== ENCOUNTER → 2023-02-04 10:17 | Outpatient (BNVA) | payer MEDICARE, SELFPAY | PROVIDERS: PCP Family Medicine; Visit Provider Nurse Practitioner Family | DX: Z98.890 Other specified postprocedural states (principal); T84.59XD Infection and inflammatory reaction due to other internal joint prosthesis, subsequent encounter; Z96.652 Presence of left artificial knee joint; Y79.2 Prosthetic and other implants, materials and accessory orthopedic devices associated with adverse incidents | CPT/HCPCS: 99213 ==

== ENCOUNTER → 2023-03-19 15:33 | Outpatient (BNVA) | payer MEDICARE, SELFPAY | PROVIDERS: PCP Family Medicine; Visit Provider Student in an Organized Health Care Education/Training Program | DX: T84.59XA Infection and inflammatory reaction due to other internal joint prosthesis, initial encounter (principal); Z96.659 Presence of unspecified artificial knee joint; Y79.8 Miscellaneous orthopedic devices associated with adverse incidents, not elsewhere classified | CPT/HCPCS: 36415; 80053; 85025; 85651; 86140; 99215 ==

== ENCOUNTER 2023-04-15 10:25 | Outpatient (CLI) | payer MEDICARE, SELFPAY ==
[2023-04-15 11:17] LABS: Basophils # 0.1 10^3/uL (0.0-0.1); Basophils % 0.9 %; Eosinophils # 0.4 10^3/uL (0.0-0.8); Hematocrit 45.2 % (36-47); Lymphocytes # 3.2 10^3/uL (0.8-4.8); Lymphocytes % 24.8 %; Mean Corpuscular Hemoglobin 27.2 pg (27-33); Mean Corpuscular Volume 87.9 fl (85-98); Mean Platelet Volume 12.2 fL (7.4-10.4); Monocytes # 1.2 10^3/uL (0.2-0.9); Monocytes % 9.7 %; Neutrophils # 7.76 10^3/uL (1.8-7.7); Neutrophils % 60.6 %; Nucleated Red Blood Cells % 0 %; Platelet Count 337 10^3/cmm (157-399); Red Blood Count 5.14 10^6/uL (3.85-5.65); White Blood Count 12.82 10^3/uL (3.29-11.43)
[2023-04-15 11:31] LABS: Erythrocyte Sedimentation Rate 14 mm/hr (0-15)
[2023-04-15 11:43] LABS: C Reactive Protein 4.5 mg/L (0.0-4.9)
== END 2023-04-15 10:26 | disposition home or self-care (01) ==
PROVIDERS: PCP Family Medicine; Visit Provider Student in an Organized Health Care Education/Training Program
DX: T84.59XA Infection and inflammatory reaction due to other internal joint prosthesis, initial encounter (principal); M25.551 Pain in right hip; Z89.621 Acquired absence of right hip joint; Y79.2 Prosthetic and other implants, materials and accessory orthopedic devices associated with adverse incidents
CPT/HCPCS: 36415; 73502; 85025; 85651; 86140; 99214

== ENCOUNTER → 2023-04-21 10:23 | Outpatient (BNVA) | payer MEDICARE, SELFPAY | PROVIDERS: PCP Family Medicine; Visit Provider Family Medicine | DX: Z89.621 Acquired absence of right hip joint (principal); E03.9 Hypothyroidism, unspecified | CPT/HCPCS: 80053; 81000; 84443; 85025 ==

== ENCOUNTER 2023-04-28 15:32 | Observation (INO) | payer MEDICARE, SELFPAY ==
[2023-04-28] VITALS (16 sets, daily range): BP systolic 104–174; BP diastolic 68–94; PULSE 78–131; RESP 8–22; TEMP 36.3–36.6; O2SAT 91–97; BMI 34.5; BMI 39.9
[2023-04-28] MEDS: CELEcoxib 200 mg Capsule 400 MG PO (11:20)
[2023-04-28] MEDS: gabapentin 300 mg Capsule PO ×2 (11:20→17:15)
[2023-04-28] MEDS: sodium chloride 0.9% 1,000 ML 30 ML IV (11:20)
[2023-04-28] MEDS: acetaminophen 1,000 MG/100 ML PIGGYBACK 400 MG IV (11:28)
--- NOTE | 2023-04-28 12:16 | W.PM.OPSUD ---
Surgery/Procedure H&P Update DATE OF PROCEDURE: April 28, 2023 DATE H&P PERFORMED: 04/15/23 H&P UPDATE INFORMATION: I have reviewed H&P completed within last 30 days, I have examined patient prior to procedure, No changes to prior documentation and H&P is in [facility] [place] on date indicated PREOP DIAGNOSIS: Previous infected right total hip arthroplasty PRIMARY INDICATION FOR PROCEDURE: Previous infected right total hip arthroplasty with cement spacers status post antibiotic treatment PLANNED PROCEDURE: Operation Date: 04/28/23 12:10 Proposed Procedures p RIGHT HIP REMOVAL OF SPACERS WITH CONVERSION TO RIGHT DEMARCO REVISION(Right) - Aliza Otto MD Related Problem List Diagnoses (1) 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 (2) Infection of right prosthetic hip joint: Qualifiers: Encounter type: subsequent encounter Qualified Code(s): T84.51XD - Infection and inflammatory reaction due to internal right hip prosthesis, subsequent encounter
--- NOTE | 2023-04-28 12:40 | ANES.PREANE2 ---
Pre-Anesthetic Assessment Height/Weight: Height 1.6 m Weight 88.451 kg Temp Pulse Resp BP Pulse Ox O2 Del Method 97.3 F L 78 16 152/92 97 Room Air 04/28/23 10:45 04/28/23 10:45 04/28/23 10:45 04/28/23 10:45 04/28/23 10:45 04/28/23 10:54 Preop Diagnosis: Previous infected right total hip arthroplasty Operation Date: 04/28/23 12:10 Proposed Procedures p RIGHT HIP REMOVAL OF SPACERS WITH CONVERSION TO RIGHT DEMARCO REVISION(Right) - Aliza Otto MD Familial anesthetic complications: none Was Beta Brandon taken within 24 hours: N/A Was Clonidine taken within 24 hours: N/A Last intake: Intake Last Liquid Date 04/27/23 Last Liquid Time 22:00 Last Solid Date 04/27/23 Last Solid Time 22:00 Social No alcohol and No tobacco Exam alert, oriented x 3, clear to auscultation bilaterally and regular rate & rhythm Airway Mallampati: Class I Dentition: false CV/HEM Deep Vein Thrombosis GI Gastroesophageal Reflux Disease Metabolic Morbid Obesity and Thyroid [place] [facility] Rheumatoid Arthritis Anesthetic Plan ASA status: 3 Anesthesia: Choice Risk of > 500 ml blood loss (7ml/kg in children): No Medications/Allergies Home Medications Medication Instructions Recorded Confirmed Last Taken Type prednisone 10 mg tablet 10 mg PO DAILY@12 01/06/22 04/28/23 04/27/23 History walker adjustable platform with #1 ea 01/14/22 04/28/23 11/03/22 Rx padded cuff diphenhydramine HCl 25 mg capsule 25 mg PO BEDTIME 05/09/22 04/28/23 04/27/23 History (Benadryl) tramadol 50 mg tablet 100 mg (2 x 50 mg) PO TID PRN Pain 07/25/22 04/28/23 04/27/23 Rx 30 days #180 tabs hydrochlorothiazide 25 mg tablet 25 mg PO QAM #90 tabs 01/20/23 04/28/23 04/28/23 07:00 Rx cefadroxil 500 mg capsule 1,000 mg (2 x 500 mg) PO BID 30 02/18/23 04/28/23 04/28/23 07:00 Rx days #120 caps gabapentin 300 mg capsule 300 mg PO BID 04/21/23 04/28/23 04/27/23 History levothyroxine 175 mcg tablet 175 mcg PO DAILY #90 tabs 04/22/23 04/28/23 04/28/23 07:00 Rx Allergies Allergy/AdvReac Type Severity Reaction Status Date / Time Penicillins Allergy Severe ALGY-Anaphy Verified 04/28/23 11:02 laxis amoxicillin Allergy Unknown Verified 04/28/23 11:02 IV RA Meds Allergy ALGY-Anaphy Uncoded 04/27/23 11:09 laxis Current Medications Generic Name Dose Route Start Last Admin Trade Name Freq PRN Reason Stop Dose Admin Sodium Chloride 1,000 mls @ 30 mls/hr 04/28/23 10:45 04/28/23 11:20 Sodium Chloride 0.9% IV 04/29/23 10:44 30 mls/hr .Q24H MICHELLE Administration PFSH Anesthesia Medical History 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 with presence of antibiotic-impregnated cement spacer Bullae Chronic steroid use Chronic use of steroids Foot osteomyelitis High risk medication use Hypertension Hypothyroidism Immunization counseling Leukocytosis Rheumatoid arthritis Rheumatoid arthritis flare Seropositive rheumatoid arthritis of multiple sites Spondylolisthesis at L4-L5 level Surgical History History of foot surgery x5 right History of hand surgery 2right hand, 1 left hand History of hip replacement, total bilateral Status post incision and drainage Status post left knee replacement Family History Other CAD (coronary artery disease) Cancer Hyperlipidemia Hypertension Denies family history of Rheumatoid arthritis Diabetes Lupus Chronic kidney disease (CKD) Lung disease Stroke Social History Smoking and tobacco/nicotine status: never used tobacco/nicotine Substance/Drug Use: former Data Anesthesia Cardiac Studies: Echocardiogram 05/14/22
[2023-04-28] MEDS: vancomycin 1,500 MG/300 ML PIGGYBACK 200 MG IV (12:44)
[2023-04-28] MEDS: tranexamic acid 1,000 mg/10mL SDV 1000 MG IV (13:22)
[2023-04-28] MEDS: vancomycin 1,000 MG SDV 3000 MG IRRIGATION (14:24)
[2023-04-28] MEDS: vancomycin 1,000 MG SDV 1000 MG IRRIGATION (14:57)
[2023-04-28] MEDS: vancomycin 1,000 MG SDV 2000 MG XX (14:58)
[2023-04-28] MEDS: thrombin 5,000 unit SDV 5000 UNIT XX (14:59)
--- NOTE | 2023-04-28 15:12 | PM.OP ---
Operative Report Date of procedure: April 28, 2023 Pre-op diagnosis: Status post removal infected right total hip arthroplasty which had been placed approximately 16 years ago with placement of antibiotic spacer and IV therapies Post-op diagnosis: Status post removal infected right total hip arthroplasty which had been placed approximately 16 years ago with placement of antibiotic spacer and IV therapies Post-op findings: Concern for continuing infection as there was milky fluid within the greater trochanteric bursal area with necrotic appearing or fibrinous appearing tissue. Additionally, fluid within the hip joint which appears primarily clear, but some changes in the synovial tissue as well. Procedure done: Right hip extensive incision and debridement of subcutaneous, fascial, and synovial tissues with irrigation utilizing 9 L of fluid and greater trochanteric bursal resection Implants: No new implants placed Specimens removed/disposition: Multiple samples for culture, and tissue to pathology Pathology: Tissues to pathology Surgeon: Aliza Otto MD Carbon Dioxide Operator: Chayo Jiang NP, who services were needed for retraction, positioning, dislocation, and completion of the surgical procedure. Anesthesia: General (Intubated, ASA 3) Estimated blood loss (mL): 50 IV fluids (mL): 1,500 Urine output (mL): 300 Complications: None Findings: Milky fluid expressed from the greater trochanteric bursa with necrotic or fibrinous appearing tissue concerning for residual infection. Antibiotic hip spacer in place. Condition: stable Disposition: PACU (Then to floor for consultation with Dr. Murphy and further development of appropriate plan) Brief History: This 52-year-old woman who presents today for revision total hip arthroplasty. By history, the patient had a total hip placed in [place] approximately 16 years ago. Last May, that hip became infected and it was removed. Since that time, she has had a cement spacer and has been treated with extensive IV antibiotic therapies as well as oral therapies. Dr. Murphy has been involved in her care. She presents today for removal of cement spacer and definitive placement of revision right total hip arthroplasty. Risks and complications were discussed with the patient, and consents were signed preoperatively. Questions were answered. Procedure: The patient was brought to the operating theater. She was transferred to the operating room table and subsequently administered a general anesthetic intubated, ASA 3. Following administration of adequate anesthesia, the patient was placed in full lateral position and held in position with a pegboard. Also, the patient had minimal movement in her right lower extremity preoperatively. The patient's right lower extremity was then prepped and draped in usual fashion utilizing DuraPrep. It was draped free. Following prepping and draping a surgical pause was performed. At the time of surgical pause, we identified the site and side of surgery. We also identified the patient and preoperative surgical markings. Confirmation was made of equipment availability. Additionally, the patient's preoperative IV antibiotic, vancomycin 1.5 g, was confirmed as being given in a timely fashion and being the appropriate antibiotic. Following the surgical pause, an incision was made centering over the patient's greater trochanter continuing proximally and distally as necessary to allow access to the hip joint through the patient's previous incision. Dissection continued through skin and soft tissues using a scalpel, and hemostasis was obtained using electrocautery. The tensor fascia bushra was identified and incised longitudinally. There was noted to be a rent in the greater trochanteric bursa, and during this exposure, there was milky fluid which was expressed from the greater trochanteric bursa. There also was fibrinous or necrotic tissue in this area, and infection could not be completely ruled out. Given the extensive nature of the planned procedure, the decision was made to abort the revision surgery. Due to the fact that the patient had an antibiotic spacer, we also elected to open the hip joint with a posterior arthrotomy to allow for irrigation and debridement in hopes of being able to clear this potential infection. Cultures were obtained of the bursal fluid and tissue. Cultures were also obtained of the synovial fluid of the patient's right hip joint and of synovial tissues. Exposure of the joint involve placement of the Charnley retractor. We carefully internally rotated the hip and dissected into the hip joint with a longitudinal incision. Care was taken to protect the sciatic nerve, but it could not be palpated or visualized. The hip, after these tissues had been elevated and cultures obtained, was internally rotated to allow for dislocation. Further debridement of soft tissues was accomplished at that time. Once the soft tissues were debrided, evaluation of the spacer indicated that there was no loosening of the spacer. The wound was then copiously irrigated with 9 L of fluid. Each 3 L bag contained 1 g of vancomycin. Once this irrigation was accomplished, the hip was suctioned dry. The hip was relocated, and attention was directed to closure. Closure was accomplished with #1 PDS deep in the capsular tissues, but this was a single stitch to hold the soft tissues in place. Tensor fascia bushra was closed with #1 PDS as well. A combined layer of #1 PDS and 2-0 Monocryl was placed in the subcutaneous tissues. This layer was followed by skin lan and surgical and dressing. Patient was placed in an abduction pillow, and she was returned to the recovery room in a satisfactory condition where she will be discharged to the floor with consultation to Dr. Murphy. There were no complications. 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
--- NOTE | 2023-04-28 15:42 | XRR_ITS ---
PROCEDURE INFORMATION: Exam: XR Right Hip Exam date and time: 04/28/2023 4:47 PM Age: 52 years old Clinical indication: Device placement; Other: Right hip; Prior surgery; Surgery date: Post-operative (0-2 days); Surgery type: Post op RT hip; Additional info: Pacu images. Ptop right hip TECHNIQUE: Imaging protocol: Radiologic exam of the right hip. Views: 1 view hip with pelvis when performed. COMPARISON: CR XR hip RT 2-3V wo/w pel* [id number] 04/15/2023 11:01 AM FINDINGS: Bones/joints: Bilateral hip arthroplasty changes in place. Soft tissues: Unremarkable. XR/XR hip RT 1V wo/w pel [id number] IMPRESSION: Bilateral hip arthroplasty changes in place.
--- NOTE | 2023-04-28 16:33 | PM.CONSULT ---
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 Since then patient has had removal of all existing hardware from the right hip in May 2022 and from the left knee in August 2022 and currently has spacers in both of these joints. Culture from both of these infections had shown MSSA. She has completed an adequate course of IV cefazolin for both of these infections and remained on chronic suppression with p.o. cefadroxil until March 2023, when she was taken off of cefadroxil to allow an antibiotic free interval prior to definitive joint revision at the right hip. Patient was admitted yesterday for definitive surgery with planned reimplantation of prosthesis however this procedure was eventually deferred when intraoperatively she was encountered as having a milky white fluid in the greater trochanteric bursa and necrotic/fibrinous appearing tissue concerning for possibly residual infection. Extensive I&D of the subcutaneous fascial and synovial tissues was performed. Multiple cultures were taken which are currently pending. Review of Systems General: Reports: 10 or more systems reviewed and unremarkable except in HPI and below Const: Denies: fever(s), chills or body aches Eyes: Denies: change in vision, blurry vision or photophobia ENMT: Reports: hoarseness; Denies: throat pain, enlarged tonsils, odynophagia or nasal congestion Card: Denies: chest pain, palpitations, irregular heart rhythm, edema, swelling of feet/ankles, lightheadedness, pre-syncope, dyspnea on exertion or orthopnea Resp: Denies: dyspnea, productive cough, non-productive cough, wheezing, stridor, pain on inspiration, change in phlegm color, hemoptysis or chest congestion GI: Denies: abdominal pain, nausea, vomiting, hematemesis, coffee ground emesis, dysphagia, heartburn, diarrhea, constipation, GI cramping, change in stool character, hematochezia or melena : Denies: flank pain, difficulty voiding, dysuria, urinary frequency, urinary urgency, urinary hesitancy or hematuria Musc: Denies: neck pain, back pain, extremity pain, joint swelling, joint warmth or deformity Neuro: Denies: headache(s), numbness in extremities, weakness in extremities, sensory changes, difficulty walking, frequent falls, dizziness, vertigo, behavioral changes, Slurred speech present or seizure-like activity Psych: Denies: anxiety, depression, suicidal ideation or homicidal ideation Endo: Denies: polyuria, polydipsia, tired all the time, cold intolerance or hot flashes Malick/Lymph: Denies: easy bruising or easy bleeding Medications/Allergies Home Medications Medication Instructions Recorded Confirmed Last Taken Type walker adjustable platform with #1 ea 01/14/22 05/19/23 11/03/22 Rx padded cuff diphenhydramine HCl 25 mg capsule 25 mg PO BEDTIME 05/09/22 05/19/23 04/27/23 History (Benadryl) tramadol 50 mg tablet 100 mg (2 x 50 mg) PO TID PRN Pain 07/25/22 05/19/23 04/27/23 Rx 30 days #180 tabs hydrochlorothiazide 25 mg tablet 25 mg PO QAM #90 tabs 01/20/23 05/19/23 04/28/23 07:00 Rx cefadroxil 500 mg capsule 1,000 mg (2 x 500 mg) PO BID 30 02/18/23 05/19/23 04/28/23 07:00 Rx days #120 caps gabapentin 300 mg capsule 300 mg PO BID 04/21/23 05/19/23 04/27/23 History levothyroxine 175 mcg tablet 175 mcg PO DAILY #90 tabs 04/22/23 05/19/23 04/28/23 07:00 Rx aspirin 325 mg tablet,delayed 325 mg PO DAILY #0 tabs 04/29/23 05/19/23 Unknown Rx release leflunomide 20 mg tablet 20 mg PO DAILY 05/19/23 05/19/23 Unknown History Allergies Allergy/AdvReac Type Severity Reaction Status Date / Time Penicillins Allergy Severe ALGY-Anaphy Verified 05/19/23 14:11 laxis amoxicillin Allergy Unknown Verified 05/19/23 14:11 IV RA Meds Allergy ALGY-Anaphy Uncoded 05/19/23 14:11 laxis PFSH Acute PFSH: Medical History 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 with presence of antibiotic-impregnated cement spacer Foot osteomyelitis Bullae Chronic use of steroids Rheumatoid arthritis flare Leukocytosis Spondylolisthesis at L4-L5 level Chronic steroid use Immunization counseling High risk medication use Seropositive rheumatoid arthritis of multiple sites Rheumatoid arthritis Hypothyroidism Hypertension Surgical History Status post incision and drainage Status post left knee replacement History of hand surgery 2right hand, 1 left hand History of hip replacement, total bilateral History of foot surgery x5 right Family History Other CAD (coronary artery disease) Cancer Hyperlipidemia Hypertension Denies family history of Rheumatoid arthritis Diabetes Lupus Chronic kidney disease (CKD) Lung disease Stroke Social History Smoking and tobacco/nicotine status: never used tobacco/nicotine Substance/Drug Use: former Vitals/I&O/Wt Last Vital Signs Temp 97.3 F L 04/28/23 15:51 Pulse 92 04/28/23 15:51 Resp 17 04/28/23 15:51 BP 159/81 04/28/23 15:51 Pulse Ox 94 04/28/23 15:51 O2 Del Method Room Air 04/28/23 15:51 04/28/23 04/28/23 04/28/23 06:59 14:59 22:59 Intake Total 400 / 400 600 / 1000 Output Total 650 / 650 Balance 400 / 400 -50 / 350 Weight last 48 hrs Weight 88.451 kg Physical Exam Narrative: General: <del>No</del> <del>acute</del> <del>distress,</del> <del>AO</del> <del>x3</del> <del>HEENT:</del> <del>PERRLA,</del> <del>pupils</del> <del>bilaterally</del> <del>equal</del> <del>and</del> reactive, pallors not present Chest: Normal vesicular breath sounds, no added sounds, equal good air entry bilaterally CVS: S1-S2 regular, no murmurs, no tachycardia, no gallops, no rubs Abdomen: Soft, nontender, no organomegaly, bowel sounds present Neuro: No focal deficits, no facial deformity, AO x3, power 5/5 in all limbs Urinary Catheter Management: Frey: Cath Placed During This Visit: yes Urinary Catheter Date of Insertion: 04/28/23 Urinary Catheter Time of Insertion: 13:00 Data 04/29/23 05:43 04/29/23 05:43 A&P Assessment and plan (1) Infection of prosthetic knee joint: Qualifiers: Encounter type: sequela Qualified Code(s): T84.59XS - Infection and inflammatory reaction due to other internal joint prosthesis, sequela; Z96.659 - Presence of unspecified artificial knee joint (2) Infection of prosthetic hip joint: Plan Await final cultures from the OR as sent yesterday. Depending on results from Gram stain and culture further recommendations to be made. Can hold off on PICC line and IV antibiotics for now until cultures finalize. We will follow these up as outpatient within the next 3 to 5 days and arrange for outpatient abx if needed from the office. Coding Level of Care Code Acute Code for [facility] Fwd Diagnoses Infection of prosthetic knee joint, sequela T84.59XS; Z96.659 Encounter type: sequela Infection of prosthetic hip joint T84.59XA; Z96.649
[2023-04-28] MEDS: CELEcoxib 200 mg Capsule PO (16:46)
[2023-04-28] MEDS: oxyCODONE 5 mg IR Tab/Cap PO ×2 (16:46→21:19)
[2023-04-28] MEDS: mupirocin oint 22 gm 1 APPLIC NASAL (17:14)
[2023-04-28] MEDS: chlorhexidine gluconate 0.12% Btl 473 mL 30 ML MUCOUS MEM ×2 (17:14→21:21)
[2023-04-28] MEDS: ceFAZolin 2,000 MG in sodium chloride 0.9% (plus) 50 ML 100 MG IV (18:14)
[2023-04-28] MEDS: TRAMadol 50 mg Tablet 100 MG PO (19:20)
[2023-04-28] MEDS: tranexamic acid 1,000 MG/100 ML PREMIX 600 MG IV (21:19)
[2023-04-28] MEDS: diphenhydrAMINE 25 mg Capsule PO (21:19)
[2023-04-29] VITALS: BP 107/74; PULSE 87; RESP 18; TEMP 37.1; O2SAT 96
[2023-04-29] MEDS: ceFAZolin 2,000 MG in sodium chloride 0.9% (plus) 50 ML 100 MG IV ×2 (01:39→10:47)
[2023-04-29 05:04] VITALS: BP 127/79; PULSE 85; RESP 17; TEMP 36.7; O2SAT 95
[2023-04-29 05:24] VITALS: RESP 16
[2023-04-29] MEDS: hydroCHLOROthiazide 25 mg Tablet PO (05:24)
[2023-04-29] MEDS: oxyCODONE 5 mg IR Tab/Cap PO (05:24)
[2023-04-29] MEDS: CELEcoxib 200 mg Capsule PO (05:25)
--- NOTE | 2023-04-29 06:09 | PC.NURSE ---
BLEEDING SURGICAL SITE Pt had small amt of bleeding noted to upper end of surgical dressing at 0400 check. Pad and sheet was changed and continued to monitor. Ice packs in place.
[2023-04-29 06:24] LABS: Basophils # 0.1 10^3/uL (0.0-0.1); Basophils % 0.6 %; Eosinophils # 0.1 10^3/uL (0.0-0.8); Eosinophils % 0.3 %; Hematocrit 35.8 % (36-47); Lymphocytes # 2.3 10^3/uL (0.8-4.8); Lymphocytes % 11.4 %; Mean Corpuscular HGB Conc 32.1 g/dL (30-55); Mean Corpuscular Hemoglobin 28.2 pg (27-33); Mean Corpuscular Volume 87.7 fl (85-98); Mean Platelet Volume 11.8 fL (7.4-10.4); Monocytes # 2.7 10^3/uL (0.2-0.9); Monocytes % 13.6 %; Neutrophils % 73.3 %; Nucleated Red Blood Cells % 0 %; Platelet Count 334 10^3/cmm (157-399); Red Blood Count 4.08 10^6/uL (3.85-5.65); Red Cell Distribution Width 17.6 % (12.1-15.1); White Blood Count 19.93 10^3/uL (3.29-11.43)
[2023-04-29 06:41] LABS: Anion Gap 14.8 (5-19); Blood Urea Nitrogen 13 mg/dL (6-20); Calcium 8.2 mg/dL (8.5-10.5); Carbon Dioxide 24 mmol/L (22-29); Chloride 104 mmol/L (98-107); Glomerular Filtration Rate 104.2 mL/min (90-130); Glucose 151 mg/dL (65-115); Osmolality Calculated 291 mOsm/kg (285-295); Potassium 3.8 mmol/L (3.5-5.1); Sodium 139 mmol/L (136-145)
[2023-04-29 08:00] VITALS: BP 120/78; PULSE 67; RESP 16; TEMP 36.8; O2SAT 96
[2023-04-29] MEDS: TRAMadol 50 mg Tablet 100 MG PO (08:41)
[2023-04-29] MEDS: gabapentin 300 mg Capsule PO (08:42)
[2023-04-29] MEDS: levothyroxine 175 mcg Tablet PO (08:42)
[2023-04-29] MEDS: aspirin 325 mg EC Tablet PO (08:43)
--- NOTE | 2023-04-29 10:27 | PC.CHAP ---
Pastoral Care Encounter/Spiritual Assessment Type of Contact [] Declined curator of collections visit [] Patient/Family/Request visit [] Outpatient visit [] Follow-up visit [] Physician referral [] Code/Alert [x] Routine visit [] Staff referral [] Actively dying [] Patient sleeping [] Family support [] [] Out of room [] Palliative care [] [] Receiving care in room [] Pre-surgical visit [] Trauma [] Long length of stay [] ICU visit [] Other: Relational/Emotional Strength [x] Patient feels connected with others/family/visitors/staff [] Distress [] Loneliness/isolation [] Abandonment Spirituality of Patient [] Person of Mary [] Attends Druze of their Mary [] Believes in Prayer [] Reads Bible or Scientologist materials [] There are Spiritual issues to be addressed Drill Foreman Interventions [x] Prayer [] Active listening [] Non-anxious presence [] Spiritual/emotional support [] Crisis/trauma care [] Spiritual counseling [] Bereavement support [] Provided bereavement packet [] Provided Bible/devotional materials [] Provided toy/stuffed animal, coloring book to patient or family member [] Provided Communion [] Anointing/[place] [] Salvation [] Completed spiritual assessment [] Other: Impact on Illness or Injury [x] Angry [x] Fearful [] Anxious [x] Often cries [] Exhaustion [] Unable to work [] Unable to attend amish [] Unable to walk/stand [] Unable to read [] Unable to drive [] Unable to eat/drink [] Unable to sleep [] Unable to be with family [] Patient intubated [] Other: Summary ms anne had surgery, she was in very much distress because the surgery didnt work, we prayed together. She hasnt been able to walk for 1 1 /2 years . Time spent with patient 20 min
[2023-04-29] MEDS: predniSONE 10 mg Tablet PO (11:56)
[2023-04-29] MEDS: chlorhexidine gluconate 0.12% Btl 473 mL 30 ML MUCOUS MEM (11:57)
[2023-04-29 12:00] VITALS: BP 134/77; PULSE 71; RESP 14; TEMP 36.9; O2SAT 96
--- NOTE | 2023-04-29 13:44 | P.DS_ITS ---
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 She also had a left total hip arthroplasty. Subsequent to this, Dr. Horan performed left total knee arthroplasty. Last May, the patient presented with a right septic hip and probable right septic knee which developed subsequently. She underwent an incision and drainage by Dr. Horan on both the hip and the knee. He felt the knee was confined and its area of infection to the popliteal cyst, and the hip was noted to be infected down to the prosthesis. At that point in time, I took out her prosthesis and placed an antibiotic spacer. Consultation was obtained with infectious disease, and appropriate antibiotic treatments have been completed at this time. The patient presents today for removal of her cement spacer and conversion to right total hip arthroplasty utilizing the pentecostal modular [facility] total hip system. Risks and complications were discussed with the patient, and she understood. She wished to proceed. Hospital Course Hospital Course Patient was admitted for same-day surgery for removal of antibiotic spacer and placement of right total hip arthroplasty utilizing revision components per [facility] pentecostal modular system. Patient was taken to the operating room with intent to remove the cement spacer, however, there was some cloudy milky fluid within the right greater trochanteric bursa upon attempted entry into the hip joint. Given the patient's history, it was felt prudent to obtain cultures and Gram stain of this prior to proceeding with revision total hip arthroplasty. Therefore, at the time of surgery, the hip was dislocated and copiously irrigated with 9 L of fluid containing vancomycin. Prior to irrigating, cultures were obtained of fluid from the bursa and the hip joint as well as tissue culture was sent. The patient was admitted to the hospital postoperatively for antibiotic therapies and discussion of further treatment plan. She was seen on the first postoperative day without complication. She wished to be discharged to home. Dr. Murphy was consulted from infectious disease and she agreed with the discharge as well. Physical Exam Const: COMMON NORMALS: no acute distress, average body habitus, patient oriented x3 and alert GENERAL APPEARANCE: cooperative and comfortable ORIENTATION/CONSCIOUSNESS: Yes awake HENMT: COMMON NORMALS: normocephalic and atraumatic HEAD & SCALP: normocephalic and atraumatic Eye: GENERAL EYE: appearance normal, both eyes and all related structures Chest: COMMONS NORMALS: normal inspection of the chest Resp: COMMON NORMALS: normal respiratory effort EFFORT & INSPECTION: Yes able to speak in complete sentences and Yes symmetric chest movement Extremity: RIGHT LOWER EXTREMITY: Yes hip joint (Dressing is dry and intact) Right hip: Yes inspection (No evidence of significant swelling), Yes ROM (Not evaluated) and Yes neurovascular exam (Intact distally without evidence of DVT) Neuro: COMMON NORMALS: patient oriented x3 SENSORIUM/ORIENTATION: Yes alert Psych: COMMON NORMALS: mental status grossly normal APPEARANCE: Yes grossly normal ATTITUDE: Yes calm and Yes engaged ATTENTION/CONCENTRATION: Yes attention grossly intact Skin: COMMON NORMALS: no rashes or lesions noted GENERAL SKIN EXAM: no rashes or lesions noted Urinary Catheter Management: Frey: Cath Placed During This Visit: yes, but has since been removed by the nurse Reason for Continuing Indwelling Catheter: Decision to DC Catheter Urinary Catheter Date of Insertion: 04/28/23 Urinary Catheter Time of Insertion: 13:00 Date Urinary Catheter Removed: 04/29/23 Time Urinary Catheter Discontinued: 06:27 Discharge Data Studies Completed and Pending Completed Studies During Hospitalization Category Date Time Status XR hip RT 1V wo/[place] pel [id number] Stat Exams 04/28/23 15:42 Completed Pending at discharge Category Date Time Status Anaerobic Culture Routine Lab 04/28/23 14:07 Results Anaerobic Culture Routine Lab 04/28/23 14:08 Results Anaerobic Culture Routine Lab 04/28/23 15:00 Results Body Fluid Culture & GS Routine Lab 04/28/23 14:08 Results Complete Blood Count w/Auto AM LABS Lab 04/30/23 04:00 Ordered Complete Blood Count w/Auto AM LABS Lab 05/01/23 04:00 Ordered Wound Culture and Gram Stain Routine Lab 04/28/23 14:07 Results Wound Culture and Gram Stain Routine Lab 04/28/23 14:08 Results Pathology: Surgical [PTH] Routine Pth 04/28/23 15:27 Received Radiology Impressions Hip X-Ray 04/28/23 15:42 IMPRESSION: Bilateral hip arthroplasty changes in place. Laboratory Results WBC 19.93 10^3/uL (3.29-11.43) H 04/29/23 05:43 RBC 4.08 10^6/uL (3.85-5.65) 04/29/23 05:43 Hgb 11.50 g/dL (11.27-16.99) 04/29/23 05:43 Hct 35.8 % (36-47) L 04/29/23 05:43 MCV 87.7 fl (85-98) 04/29/23 05:43 MCH 28.2 pg (27-33) 04/29/23 05:43 MCHC 32.1 g/dL (30-55) 04/29/23 05:43 RDW 17.6 % (12.1-15.1) H 04/29/23 05:43 Plt Count 334 10^3/cmm (157-399) 04/29/23 05:43 MPV 11.8 fL (7.4-10.4) H 04/29/23 05:43 Neut % (Auto) 73.3 % 04/29/23 05:43 Lymph % (Auto) 11.4 % 04/29/23 05:43 [place] % (Auto) 13.6 % 04/29/23 05:43 Eos % (Auto) 0.3 % 04/29/23 05:43 Baso % (Auto) 0.6 % 04/29/23 05:43 Neut # (Auto) 14.60 10^3/uL (1.8-7.7) H 04/29/23 05:43 Lymph # (Auto) 2.3 10^3/uL (0.8-4.8) 04/29/23 05:43 [place] # (Auto) 2.7 10^3/uL (0.2-0.9) H 04/29/23 05:43 Eos # (Auto) 0.1 10^3/uL (0.0-0.8) 04/29/23 05:43 Baso # (Auto) 0.1 10^3/uL (0.0-0.1) 04/29/23 05:43 Nucleated RBC % (auto) 0 % 04/29/23 05:43 Nucleated RBCs # 0.0 /100WBC 04/29/23 05:43 Sodium 139 mmol/L (136-145) 04/29/23 05:43 Potassium 3.8 mmol/L (3.5-5.1) 04/29/23 05:43 Chloride 104 mmol/L (98-107) 04/29/23 05:43 Carbon Dioxide 24 mmol/L (22-29) 04/29/23 05:43 Anion Gap 14.8 (5-19) 04/29/23 05:43 BUN 13 mg/dL (6-20) 04/29/23 05:43 Creatinine 0.6 mg/dL (0.5-0.9) 04/29/23 05:43 GFR Calculation 104.2 mL/min (90-130) 04/29/23 05:43 Glucose 151 mg/dL (65-115) H 04/29/23 05:43 Calculated Osmolality 291 mOsm/kg (285-295) 04/29/23 05:43 Calcium 8.2 mg/dL (8.5-10.5) L 04/29/23 05:43 Vitals Last Vital Signs Temp 98.4 F 04/29/23 12:00 Pulse 71 04/29/23 12:00 Resp 14 04/29/23 12:00 BP 134/77 04/29/23 12:00 Pulse Ox 96 04/29/23 12:00 O2 Del Method Room Air 04/29/23 05:04 Discharge Plan Discharge Patient Disposition: Home Condition: Stable Prescriptions: New aspirin 325 mg Tablet,Delayed Release (Dr/Ec) 325 mg PO DAILY Qty: 0 0RF oxycodone 5 mg Tablet 5 mg PO Q4H PRN (Reason: Moderate Pain) 7 Days Qty: 30 0RF Continued gabapentin 300 mg capsule 300 mg PO BID (DME) walker adjustable platform with padded cuff See Rx Instructions .Route .MEDSUPPLY Qty: 1 0RF Rx Instructions: As directed tramadol 50 mg tablet 100 mg PO TID PRN (Reason: Pain) 30 Days Qty: 180 0RF hydrochlorothiazide 25 mg tablet 25 mg PO QAM Qty: 90 1RF cefadroxil 500 mg capsule 1,000 mg PO BID 30 Days Qty: 120 2RF Hold Instructions: Doctor's Order levothyroxine 175 mcg tablet 175 mcg PO DAILY Qty: 90 1RF Rx Instructions: TAKE 1 TABLET BY MOUTH DAILY prednisone 10 mg Tablet 10 mg PO DAILY@12 diphenhydramine HCl [Benadryl] 25 mg Capsule 25 mg PO BEDTIME Discharge Orders: Discharge Order (Routine); Ordered 04/29/23 Ordered By: Aliza Otto Referrals: Aliza Otto MD [Physician] - 05/11/23 2:15 pm Priya Murphy MD [Hospitalist] - (We have notified your physician's clinic of the need for a follow-up appointment to be scheduled. If you have not heard from them within the next 2 business days, please call them directly. ) Kylie Stewart DO [Primary Care Provider] - (We have notified your physician's clinic of the need for a follow-up appointment to be scheduled. If you have not heard from them within the next 2 business days, please call them directly. ) Discharge Diet: Advance as tolerated and Usual diet Discharge Activity: Limit activity as instructed, Use walker/crutches as instructed and As per PT/OT instructions Patient Instructions: Oxycodone, Rapid Release (By mouth), Precautions after Total Joint Replacement Surgery (GEN), Hip Abduction Pillow (GEN), Opioid Safety Activity Restrictions/Additional Instructions: Ice to right hip. Antibiotics per Dr. Murphy. You may shower, but do not soak in a tub. Posterior hip precautions as previously instructed. Use walker for safety. You may ambulate weightbearing as tolerated. Maintain current dressing until you are seen in the office. 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
[2023-04-29 14:03] VITALS: BP 134/77; PULSE 71; RESP 14; TEMP 36.9; O2SAT 96
== END 2023-04-29 14:19 | disposition home or self-care (01) ==
LOC: MEDSURG 15:33
PROVIDERS: Admitting Provider Specialist; PCP Family Medicine; Visit Provider Specialist
PROC: (CPT 26991; 2023-04-28 11:40)
DX: T84.51XA Infection and inflammatory reaction due to internal right hip prosthesis, initial encounter (principal); I10 Essential (primary) hypertension; E03.9 Hypothyroidism, unspecified
CPT/HCPCS: 26991; 36415; 51702; 73501; 80048; 85025; 87070; 87075; 87205; 88305; 97161; 97165; 97530; G0378; J0131; J0690; J1100; J2405; J2704; J3010; J3370; J3490; J7030; J7512

== ENCOUNTER 2023-05-11 16:39 | Emergency (ER) | payer MEDICARE, SELFPAY ==
[2023-05-11 16:41] VITALS: BMI 43.4
[2023-05-11 16:49] VITALS: BP 132/54; PULSE 89; RESP 16; TEMP 37.1; O2SAT 95
--- NOTE | 2023-05-11 16:54 | ED_ITS ---
Documented by User: SHARON Vargas 05/12/23 09:20 HPI - Extremity Problem General: Chief complaint: Extremity Problem,Nontraumatic Stated complaint: post op rt hip bleeding Time Seen by Provider: 05/11/23 16:41 Source: patient and EMS Mode of arrival: EMS Limitations: no limitations History of Present Illness: Patient is a 52-year-old female who presents to ED today via EMS for concerns of bleeding to her right hip surgical wound. 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 Otto. Date of service was 04/28. She states she had been doing okay since the surgery. Ambulating. Pain fairly controlled. She states today randomly she noticed that her dressing became soaked and she could feel blood running down her leg. She was scheduled for her follow up orthopedic visit today but was called by the clinic and told they needed to cancel/reschedule appointment. MD Complaint: extremity pain Onset (ago): hour(s) Location: right and lower extremity Quality: other (bleeding) Radiation: none Relieving factors: nothing Exacerbating factors: nothing Associated symptoms: Reports no associated symptoms; Deny chest pain or fever(s) Review of Systems Const: Denies: fever(s), chills, body aches, fatigue or malaise Card: Denies: chest pain Resp: Denies: dyspnea Musc: Reports: extremity pain (R thigh-reports this has been present since the surgery) and joint pain (R hip-recent surgery-feels like she has been recovering well); Denies: neck pain, back pain, joint redness or joint warmth Neuro: Denies: numbness in extremities, weakness in extremities or sensory changes PFS ED PFSH: Medical History 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 with presence of antibiotic-impregnated cement spacer Foot osteomyelitis Bullae Chronic use of steroids Rheumatoid arthritis flare Leukocytosis Spondylolisthesis at L4-L5 level Chronic steroid use Immunization counseling High risk medication use Seropositive rheumatoid arthritis of multiple sites Rheumatoid arthritis Hypothyroidism Hypertension Surgical History Status post incision and drainage Status post left knee replacement History of hand surgery 2right hand, 1 left hand History of hip replacement, total bilateral History of foot surgery x5 right Family History Other CAD (coronary artery disease) Cancer Hyperlipidemia Hypertension Denies family history of Rheumatoid arthritis Diabetes Lupus Chronic kidney disease (CKD) Lung disease Stroke Social History Smoking and tobacco/nicotine status: never used tobacco/nicotine Substance/Drug Use: former Physical Exam Const: COMMON NORMALS: no acute distress, average body habitus, patient oriented x3, no limitations, alert and well nourished GENERAL APPEARANCE: cooperative ORIENTATION/CONSCIOUSNESS: Yes awake, Yes oriented to person, Yes oriented to place and Yes oriented to time Resp: COMMON NORMALS: normal respiratory effort and clear to auscultation bilaterally AUSCULTATION: clear to auscultation bilaterally Cardio: COMMON NORMALS: regular rate and regular rhythm RATE: regular rate RHYTHM: regular rhythm GI: COMMON NORMALS: Normal to inspection, nondistended, normoactive bowel sounds present, Soft to palpation, non-tender and no masses PALPATION: Yes Soft to palpation Extremity: COMMON NORMALS: capillary refill normal, no clubbing, cyanosis or edema, no calf tenderness and no pedal edema GENERAL: Yes normal exam except as noted RIGHT LOWER EXTREMITY: Yes hip joint Right hip: Yes neurovascular exam (normal) OTHER: Patient has surgical incision extending from R lateral hip/thigh. Sutures are all intact without dehiscence. She has a surgical bandage that is saturated in old appearing blood. There is no redness/warmth/purulent drainage from incision. She does have underlying swelling/some ecchymosis consistent with recent surgery/probable underlying hematoma. Extremity is NV intact with intact pulses throughout extremity and normal sensation. Neuro: COMMON NORMALS: patient oriented x3, moves all extremities, no focal motor deficits and no sensory deficits noted SENSORIUM/ORIENTATION: Yes alert, Yes oriented to person, Yes oriented to place and Yes oriented to time Course Vital Signs: Vital signs: Vital Signs Temperature 98.7 F 05/11/23 16:49 Pulse Rate 78 05/11/23 17:15 Respiratory Rate 16 05/11/23 16:49 Blood Pressure 123/70 05/11/23 17:15 Pulse Oximetry 96 05/11/23 17:15 Oxygen Delivery Me thod Room Air 05/11/23 17:15 MDM - Extremity (Nontraumatic) Medical Decision Making Patient surgical incision appears very well. All of her lan are intact. There is no surrounding erythema, warmth, purulent drainage. She does have probable underlying hematoma which is most likely the etiology of her bleeding today. Blood appeared old. There was no active bleeding. Extremity neurovascularly intact. Recommend she follow-up with Dr. Otto this week for re-evaluation. Will place CM referral so they can work on getting her an appointment. Return to ED precautions given. Discharge Plan Discharge Patient Disposition: Home Clinical Impression: Postoperative bleeding from incision Condition: Stable Prescriptions: No Action gabapentin 300 mg capsule 300 mg PO BID (DME) walker adjustable platform with padded cuff See Rx Instructions .Route .MEDSUPPLY Qty: 1 0RF Rx Instructions: As directed tramadol 50 mg tablet 100 mg PO TID PRN (Reason: Pain) 30 Days Qty: 180 0RF hydrochlorothiazide 25 mg tablet 25 mg PO QAM Qty: 90 1RF cefadroxil 500 mg capsule 1,000 mg PO BID 30 Days Qty: 120 2RF Hold Instructions: Doctor's Order levothyroxine 175 mcg tablet 175 mcg PO DAILY Qty: 90 1RF Rx Instructions: TAKE 1 TABLET BY MOUTH DAILY prednisone 10 mg Tablet 10 mg PO DAILY@12 diphenhydramine HCl [Benadryl] 25 mg Capsule 25 mg PO BEDTIME aspirin 325 mg Tablet,Delayed Release (Dr/Ec) 325 mg PO DAILY Qty: 0 0RF Discharge Orders: Discharge ED (Routine); Ordered 05/11/23 Ordered By: Jumana Luz Referrals: Kylie Stewart DO [Primary Care Provider] - Activity Restrictions/Additional Instructions: As we discussed the bleeding from your incision most likely is old relating from an underlying hematoma from the recent surgery. You may continue to ice and elevate the extremity. I have placed a case management referral to get you set up to see Dr. Otto this week for reevaluation. You may continue to have small amounts of bleeding from the incision. Your surgical incision looked very well and clean. You may return to the emergency department if you are continually soaking your surgical dressings, any purulent or odorous drainage you notice from your incision, worsening pain, redness/warmth, fevers, or any other concerns you may have. 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 with presence of antibiotic-impregnated cement spacer Foot osteomyelitis Bullae Chronic use of steroids Rheumatoid arthritis flare Leukocytosis Spondylolisthesis at L4-L5 level Chronic steroid use Immunization counseling High risk medication use Seropositive rheumatoid arthritis of multiple sites Rheumatoid arthritis Hypothyroidism Hypertension Surgical History Status post incision and drainage Status post left knee replacement History of hand surgery 2right hand, 1 left hand History of hip replacement, total bilateral History of foot surgery x5 right Family History Other CAD (coronary artery disease) Cancer Hyperlipidemia Hypertension Denies family history of Rheumatoid arthritis Diabetes Lupus Chronic kidney disease (CKD) Lung disease Stroke Social History Smoking and tobacco/nicotine status: never used tobacco/nicotine Substance/Drug Use: former Course Vital Signs: Vital signs: Vital Signs Temperature 98.7 F 05/11/23 16:49 Pulse Rate 78 05/11/23 17:15 Respiratory Rate 16 05/11/23 16:49 Blood Pressure 123/70 05/11/23 17:15 Pulse Oximetry 96 05/11/23 17:15 Oxygen Delivery Me thod Room Air 05/11/23 17:15 MDM - Extremity (Nontraumatic) No radiology studies performed this visit Discharge Plan Discharge Patient Disposition: Home Clinical Impression: Postoperative bleeding from incision Condition: Stable Prescriptions: No Action gabapentin 300 mg capsule 300 mg PO BID (DME) walker adjustable platform with padded cuff See Rx Instructions .Route .MEDSUPPLY Qty: 1 0RF Rx Instructions: As directed tramadol 50 mg tablet 100 mg PO TID PRN (Reason: Pain) 30 Days Qty: 180 0RF hydrochlorothiazide 25 mg tablet 25 mg PO QAM Qty: 90 1RF cefadroxil 500 mg capsule 1,000 mg PO BID 30 Days Qty: 120 2RF Hold Instructions: Doctor's Order levothyroxine 175 mcg tablet 175 mcg PO DAILY Qty: 90 1RF Rx Instructions: TAKE 1 TABLET BY MOUTH DAILY prednisone 10 mg Tablet 10 mg PO DAILY@12 diphenhydramine HCl [Benadryl] 25 mg Capsule 25 mg PO BEDTIME aspirin 325 mg Tablet,Delayed Release (Dr/Ec) 325 mg PO DAILY Qty: 0 0RF Discharge Orders: Discharge ED (Routine); Ordered 05/11/23 Ordered By: Jumana Luz Referrals: Kylie Stewart DO [Primary Care Provider] - Activity Restrictions/Additional Instructions: As we discussed the bleeding from your incision most likely is old relating from an underlying hematoma from the recent surgery. You may continue to ice and elevate the extremity. I have placed a case management referral to get you set up to see Dr. Otto this week for reevaluation. You may continue to have small amounts of bleeding from the incision. Your surgical incision looked very well and clean. You may return to the emergency department if you are continually soaking your surgical dressings, any purulent or odorous drainage you notice from your incision, worsening pain, redness/warmth, fevers, or any other concerns you may have. Coding Level of Care Code ED Nutrition Services Worker for Paolo Garcias
[2023-05-11 17:15] VITALS: BP 123/70; PULSE 78; O2SAT 96
--- NOTE | 2023-05-11 17:16 | PC.NURSE ---
cleaned and re-bandaged surgical site, lan intact
--- NOTE | 2023-05-11 18:01 | DCPLANNER ---
Referral was sent to ortho on 05/11/23 at 1801. Clinic to contact patient.
== END 2023-05-11 17:26 | disposition home or self-care (01) ==
PROVIDERS: Emergency Provider Physician Assistant; PCP Family Medicine
DX: L76.22 Postprocedural hemorrhage of skin and subcutaneous tissue following other procedure (principal); Z79.82 Long term (current) use of aspirin; I10 Essential (primary) hypertension
CPT/HCPCS: 99282

== ENCOUNTER → 2023-05-13 14:10 | Outpatient (BNVA) | payer MEDICARE, SELFPAY | PROVIDERS: PCP Family Medicine; Visit Provider Specialist | DX: Z89.621 Acquired absence of right hip joint (principal) | CPT/HCPCS: 99024 ==

== ENCOUNTER → 2023-05-14 09:50 | Outpatient (BNVA) | payer MEDICARE, SELFPAY | PROVIDERS: PCP Family Medicine; Visit Provider Family Medicine | DX: Z13.6 Encounter for screening for cardiovascular disorders (principal) | CPT/HCPCS: 85025 ==

== ENCOUNTER → 2023-05-19 14:01 | Outpatient (BNVA) | payer MEDICARE, SELFPAY | PROVIDERS: PCP Family Medicine; Visit Provider Student in an Organized Health Care Education/Training Program | DX: Z96.659 Presence of unspecified artificial knee joint; T84.59XA Infection and inflammatory reaction due to other internal joint prosthesis, initial encounter; Z96.649 Presence of unspecified artificial hip joint; X58.XXXA Exposure to other specified factors, initial encounter | CPT/HCPCS: 99204 ==

== ENCOUNTER → 2023-05-20 14:25 | Outpatient (BNVA) | payer MEDICARE, SELFPAY | PROVIDERS: PCP Family Medicine; Visit Provider Nurse Practitioner | DX: Z89.621 Acquired absence of right hip joint (principal) | CPT/HCPCS: 99024 ==

== ENCOUNTER → 2023-06-10 14:39 | Outpatient (BNVA) | payer MEDICARE, SELFPAY | PROVIDERS: PCP Family Medicine; Visit Provider Specialist | DX: Z89.621 Acquired absence of right hip joint (principal) | CPT/HCPCS: 99214 ==

== ENCOUNTER → 2023-07-13 15:07 | Outpatient (BNVA) | payer MEDICARE, SELFPAY | PROVIDERS: PCP Family Medicine; Visit Provider Specialist | DX: Z89.621 Acquired absence of right hip joint (principal); T84.59XS Infection and inflammatory reaction due to other internal joint prosthesis, sequela; Y79.2 Prosthetic and other implants, materials and accessory orthopedic devices associated with adverse incidents; Z96.641 Presence of right artificial hip joint | CPT/HCPCS: 73502; 99214 ==

== ENCOUNTER → 2023-07-22 11:15 | Outpatient (BNVA) | payer MEDICARE, SELFPAY | PROVIDERS: PCP Family Medicine; Visit Provider Family Medicine | DX: Z01.818 Encounter for other preprocedural examination (principal) | CPT/HCPCS: 80053; 81003; 85025 ==

== ENCOUNTER 2023-07-23 10:50 | Observation (INO) | payer MEDICARE, SELFPAY ==
[2023-07-23] VITALS (22 sets, daily range): BP systolic 106–176; BP diastolic 71–109; PULSE 71–94; RESP 16–19; TEMP 36.2–36.9; O2SAT 90–98; BMI 37.8
[2023-07-23] MEDS: sodium chloride 0.9% 1,000 ML 30 ML IV (06:26)
[2023-07-23] MEDS: acetaminophen 1,000 MG/100 ML PIGGYBACK 400 MG IV ×2 (06:26→14:36)
[2023-07-23] MEDS: gabapentin 300 mg Capsule PO (06:27)
[2023-07-23] MEDS: CELEcoxib 200 mg Capsule 400 MG PO (06:27)
--- NOTE | 2023-07-23 06:46 | P.ANESASSM_ITS ---
Pre-Anesthetic Assessment Height/Weight: Height 1.63 m Weight 99.79 kg Temp Pulse Resp BP Pulse Ox O2 Del Method 97.4 F L 94 18 148/97 92 Room Air 07/23/23 06:03 07/23/23 06:03 07/23/23 06:03 07/23/23 06:03 07/23/23 06:03 07/23/23 06:13 Operation Date: 07/23/23 07:00 Proposed Procedures p Hip Arthroplasty Revision/ RIGHT HIP REMOVAL OF HARDWARE WITH ANTIBIOTIC SPACER WITH CONVERSION TO RIGHT TOTAL HIP ARTHROPLASTY WITH REVISION COMPONENTS(Right) - Aliza Otto MD Familial anesthetic complications: None Was Beta Brandon taken within 24 hours: N/A Was Clonidine taken within 24 hours: N/A Last intake: Intake Last Liquid Date 07/22/23 Last Liquid Time 20:00 Last Solid Date 07/22/23 Last Solid Time 20:00 Social No alcohol and No tobacco Exam alert, oriented x 3, clear to auscultation bilaterally and regular rate & rhythm Airway Mallampati: Class II Dentition: false CV/HEM Deep Vein Thrombosis and Hypertension GI Gastroesophageal Reflux Disease Metabolic Thy[place] [facility] [place] Rheumatoid Arthritis Chronic steroid use with chronically elevated WBC Anesthetic Plan ASA status: 2 Anesthesia: General Risk of > 500 ml blood loss (7ml/kg in children): No Medications/Allergies Home Medications Medication Instructions Recorded Confirmed Last Taken Type walker adjustable platform with #1 ea 01/14/22 07/13/23 11/03/22 Rx padded cuff diphenhydramine HCl 25 mg capsule 25 mg PO BEDTIME 05/09/22 07/23/23 07/22/23 History (Benadryl) tramadol 50 mg tablet 100 mg (2 x 50 mg) PO TID PRN Pain 07/25/22 07/23/23 07/22/23 Rx 30 days #180 tabs cefadroxil 500 mg capsule 1,000 mg (2 x 500 mg) PO BID 30 02/18/23 07/23/23 07/22/23 Rx days #120 caps levothyroxine 175 mcg tablet 175 mcg PO DAILY #90 tabs 04/22/23 07/23/23 07/22/23 Rx leflunomide 20 mg tablet 20 mg PO DAILY 05/19/23 07/23/23 07/22/23 History hydrochlorothiazide 25 mg tablet 25 mg PO QAM #90 tabs 07/07/23 07/23/23 07/22/23 Rx alendronate 70 mg tablet 70 mg PO Q7D 07/22/23 07/23/23 07/19/23 History gabapentin 300 mg capsule 600 mg PO .qhs 07/22/23 07/23/23 07/22/23 History prednisone 10 mg tablet 10 mg PO DAILY 07/22/23 07/23/23 07/22/23 History Allergies Allergy/AdvReac Type Severity Reaction Status Date / Time Penicillins Allergy Severe ALGY-Anaphy Verified 07/22/23 10:51 laxis amoxicillin Allergy Unknown Verified 07/22/23 10:51 IV RA Meds Allergy ALGY-Anaphy Uncoded 07/22/23 10:51 laxis Current Medications Generic Name Dose Route Start Last Admin Trade Name Freq PRN Reason Stop Dose Admin Sodium Chloride 1,000 mls @ 30 mls/hr 07/23/23 06:00 07/23/23 06:26 Sodium Chloride 0.9% IV 07/24/23 05:59 30 mls/hr .Q24H MICHELLE Administration PFSH Anesthesia Medical History 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 with presence of antibiotic-impregnated cement spacer Foot osteomyelitis Bullae Chronic use of steroids Rheumatoid arthritis flare Leukocytosis Spondylolisthesis at L4-L5 level Chronic steroid use Immunization counseling High risk medication use Seropositive rheumatoid arthritis of multiple sites Rheumatoid arthritis Hypothyroidism Hypertension Surgical History Status post incision and drainage Status post left knee replacement History of hand surgery 2right hand, 1 left hand History of hip replacement, total bilateral History of foot surgery x5 right Family History Other CAD (coronary artery disease) Cancer Hyperlipidemia Hypertension Denies family history of Rheumatoid arthritis Diabetes Lupus Chronic kidney disease (CKD) Lung disease Stroke Social History Smoking and tobacco/nicotine status: never used tobacco/nicotine Substance/Drug Use: former Data Anesthesia Cardiac Studies: Echocardiogram 05/14/22
--- NOTE | 2023-07-23 07:05 | W.PM.OPSUD ---
Surgery/Procedure H&P Update DATE OF PROCEDURE: July 23, 2023 DATE H&P PERFORMED: 07/13/23 H&P UPDATE INFORMATION: I have reviewed H&P completed within last 30 days, I have examined patient prior to procedure, No changes to prior documentation and [place] [facility] [place] PLANNED PROCEDURE: Operation Date: 07/23/23 07:00 Proposed Procedures p Hip Arthroplasty Revision/ RIGHT HIP REMOVAL OF HARDWARE WITH ANTIBIOTIC SPACER WITH CONVERSION TO RIGHT TOTAL HIP ARTHROPLASTY WITH REVISION COMPONENTS(Right) - Aliza Otto MD Related Problem List Diagnoses (1) 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
[2023-07-23] MEDS: vancomycin 1,000 MG in sodium chloride 0.9% 250 ML 250 MG IV (07:13)
[2023-07-23] MEDS: tranexamic acid 1,000 mg/10mL SDV 1000 MG IV (07:54)
[2023-07-23] MEDS: vancomycin 1,000 MG SDV 1000 MG XX ×2 (07:56→09:25)
[2023-07-23] MEDS: vancomycin 1,000 MG SDV 4000 MG IRRIGATION (07:58)
[2023-07-23 09:43] LABS: Apprearance, Body Fluid CLOUDY; Color, Body Fluid RED; Fluid Laterality RIGHT HIP BODY FLUID
[2023-07-23 09:45] LABS: Body Fluid Polynuclear #Cells 1.687; Monocytes # Body Fluid 0.387
[2023-07-23 09:46] LABS: Body Fluid WBC 2074 /uL
[2023-07-23 09:48] LABS: Cyto Order Verification No Order
--- NOTE | 2023-07-23 10:26 | PM.OP ---
Operative Report Date of procedure: July 23, 2023 Pre-op diagnosis: Right hip remote infection status post antibiotic hip spacer Post-op diagnosis: Right hip remote infection status post antibiotic hip spacer Post-op findings: Necrotic subcutaneous fatty tissue, significant bursal fluid with brownish discoloration and clumps of tissue Procedure done: Right hip extensive incision and drainage with debridement of subcutaneous tissue, fascia, and synovium with irrigation including Dakins solution, dilute Betadine solution, and 9 L of fluid, 3 of which contained vancomycin Implants: None Specimens removed/disposition: Soft tissue sent for pathology, aerobic and anaerobic cultures, fluid sent for cell count and differential Surgeon: Aliza Otto MD Manager Of Engineering: Chayo Jiang NP, who services were needed for retraction, positioning, dislocation, and completion of the surgical procedure. Anesthesia: General (Intubated, ASA 3) Estimated blood loss (mL): 100 IV fluids (mL): 1,700 Urine output (mL): 150 Complications: None Findings: Copious fluid with necrotic soft tissues and connection to the hip joint. Condition: stable Disposition: PACU (Then to floor under observation status) Brief History: This 52-year-old woman presented today for revision hip arthroplasty following remote hip replacement approximately 17 to 18 years ago with subsequent infection and removal of prosthesis. Antibiotic spacer was placed. In April 2023, the patient was brought to the operating room for revision to definitive prosthesis, but there was a small collection of fluid which was whitish in color and purulent. Therefore, cultures were taken and the surgical procedure was delayed. The patient continued to be followed by Dr. Murphy from an infectious disease standpoint. Patient was felt appropriate for final revision surgery with definitive prosthetic placement. She presented today for this procedure. Risks and complications were discussed with the patient, and consents were signed. Procedure: The patient was brought to the operating theater. She was transferred to the operating room table and subsequently administered a general anesthetic intubated, ASA 3. Following administration of adequate anesthesia, the patient was placed in full lateral position and held in position with a pegboard. The patient's right lower extremity was then prepped and draped in usual fashion utilizing DuraPrep. It was draped free. Following prepping and draping a surgical pause was performed. At the time of surgical pause, we identified the site and side of surgery. We also identified the patient and preoperative surgical markings. Confirmation was made of equipment availability. Additionally, the patient's preoperative IV antibiotic, vancomycin 1 g, was confirmed as being given in a timely fashion and being the appropriate antibiotic. Following the surgical pause, an incision was made centering over the patient's greater trochanter continuing proximally and distally as necessary to allow access to the hip joint through the patient's previous incision. Upon entry through the subcutaneous layer, there was copious brown fluid under pressure, and this contained debris. Upon further entry into the area of the incision, there was noted to be necrotic fatty tissue. There was brownish discoloration of the subcutaneous soft tissues as well. This was debrided manually. Fluid was sent to microbiology for cultures and stat Gram stain. Also, it was sent for cell count and differential. Soft tissue was sent to pathology for evaluation as well. Due to the fact that the patient had an antibiotic spacer, we also elected to open the hip joint with a posterior arthrotomy to allow for irrigation and debridement in hopes of being able to clear this potential infection. At that point, given the degree of necrotic tissue and the appearance of the tissues along with the extent of the planned revision surgery, the decision was made to not proceed with revision hip arthroplasty. Debridement was accomplished of the subcutaneous tissues, fascial tissues, and synovial tissues. The hip was dislocated and the acetabulum was addressed as well. With the hip dislocated, we contoured the proximal portion of the cement which was initially necessary to hold height to the cement spacer. The cement was removed from the hip area. Following debridement of the soft tissues as noted above, the irrigation process was begun. Initially, we irrigated with Dakins solution. That remained in the wound for approximately 3 to 4 minutes. This was then suctioned and the wound was irrigated with 6 L of normal saline. Following this, a diluted solution of 20 mL of Betadine and 500 mL of normal saline was placed into the wound and was allowed to remain in the wound for 5 minutes. This was then suctioned out and the wound was irrigated with an additional 3 L of normal saline with vancomycin. Further evaluation of the wound was accomplished. 1 g of vancomycin was placed into the hip joint, and the fascia was closed over this with 0 PDS. Following closure of the fascia, an additional 1 g of vancomycin was placed into the subcutaneous tissues. Surgiflo was also added to this. Closure of this subcutaneous layer was accomplished with a combination of 0 PDS and 2-0 Monocryl. This was followed by skin lan and a sterile dressing consisting of Silverlon. Patient was placed in an abduction pillow, and she was returned to the recovery room in a satisfactory condition where she will be discharged to the floor with consultation to the hospitalist team and to Dr. Murphy. There were no complications. 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
[2023-07-23 10:39] LABS: PATH Referral YES
[2023-07-23] MEDS: meperidine 50 mg/mL INJ 12.5 MG IVP (10:44)
--- NOTE | 2023-07-23 11:05 | ANE.PACU2 ---
Inpatient post-anesthesia follow up: Airway intact: Yes Vital signs: Temperature 98.0 F Pulse Rate 64 Respiratory Rate 14 Blood Pressure 122/82 Pulse Oximetry 96 Oxygen Delivery Me thod Room Air Oxygen Flow Rate 6 Fraction of Inspir ed Oxygen Hydration adequate: Yes Nausea and vomiting: No Pain level: 1 Mental status: Baseline
--- NOTE | 2023-07-23 11:06 | XR_ITS ---
WS: [id number] Examination: XR pelvis 1-2V* [id number] Reason for Exam: post surgery Date: 07/23/2023 Comparison: 07/13/2023 Findings: Postop changes to the hips are again identified. There is a well positioned total left hip prosthesis on this study. Again a right hip prosthesis is identified with a long stem component. While this may be positional t he lucency along the medial aspect of the proximal femoral component is not as well delineated. The l ucency along the greater trochanter is again noted with unchanged appearance of the longstem componen t. Lower lumbar degenerative changes are identified. Impression: Bilateral hip arthroplasties are identified. There is a long stem right component.
--- NOTE | 2023-07-23 11:10 | ANE.PACU2 ---
Inpatient post-anesthesia follow up: Airway intact: Yes Vital signs: Temperature 97.5 F Pulse Rate 83 Respiratory Rate 18 Blood Pressure 169/95 Pulse Oximetry 94 Oxygen Delivery Me thod Room Air Oxygen Flow Rate 6 Fraction of Inspir ed Oxygen Hydration adequate: Yes Nausea and vomiting: No Pain level: 1 Mental status: Baseline
--- NOTE | 2023-07-23 12:36 | P.CONIM_ITS ---
Providers/Reason For Consult 2 Consulting Physician/Specialty*: Enoc Lester MD, hospitalist Reason for Consult*: Concern of joint infection Requesting Physician: Dr. Otto Attending Physician: Aliza Otto MD Primary Care Provider: Kylie Stewart DO History of Present Illness History of Present Illness Kristine Barbosa is a 52 year old female presenting today to Outpatient Surgery, for right hip replacement. As surgery was undergoing, significant necrotic subcutaneous fatty tissue, bursal fluid with brownish discoloration and clumps of tissue concerning for possible infection was encountered. Therefore, procedure was amended to only do a right hip extensive incision and drainage with debridement of subcutaneous tissue fascia and synovium. Specimens were sent for pathology, as well as cultures both aerobic and anaerobic. Fluid was also sent for analysis. Prior to the surgery she had been doing well, with no fever or recent illness. She denied any significant joint drainage, or significant swelling. Patient has had prolonged course, of multiple different infections. 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 Culture at that time demonstrated methicillin sensitive Staph aureus for which she received treatment with cefazolin for 12 weeks and transition to cefadroxil p.o. indefinitely at that time. She also has a prior left knee joint infection in July 2022 with removal of hardware from knee, placement of spacers. Culture of this demonstrated methicillin sensitive Staph aureus at this time. Subsequent drainage demonstrated Pseudomonas. Please see last infectious disease note, dated May 19 for a more complete summary regarding recurrent infection. Review of Systems 2 General: Reports: 10 or more systems reviewed and unremarkable except in HPI and below Card: Denies: chest pain Resp: Denies: dyspnea GI: Denies: abdominal pain Medications/Allergies Home Medications Medication Instructions Recorded Confirmed Last Taken Type walker adjustable platform with #1 ea 01/14/22 07/13/23 11/03/22 Rx padded cuff diphenhydramine HCl 25 mg capsule 25 mg PO BEDTIME 05/09/22 07/23/23 07/22/23 History (Benadryl) tramadol 50 mg tablet 100 mg (2 x 50 mg) PO TID PRN Pain 07/25/22 07/23/23 07/22/23 Rx 30 days #180 tabs cefadroxil 500 mg capsule 1,000 mg (2 x 500 mg) PO BID 30 02/18/23 07/23/23 07/22/23 Rx days #120 caps levothyroxine 175 mcg tablet 175 mcg PO DAILY #90 tabs 04/22/23 07/23/23 07/22/23 Rx leflunomide 20 mg tablet 20 mg PO DAILY 05/19/23 07/23/23 07/22/23 History hydrochlorothiazide 25 mg tablet 25 mg PO QAM #90 tabs 07/07/23 07/23/23 07/22/23 Rx alendronate 70 mg tablet 70 mg PO Q7D 07/22/23 07/23/23 07/19/23 History gabapentin 300 mg capsule 600 mg PO .qhs 07/22/23 07/23/23 07/22/23 History prednisone 10 mg tablet 10 mg PO DAILY 07/22/23 07/23/23 07/22/23 History Allergies Allergy/AdvReac Type Severity Reaction Status Date / Time Penicillins Allergy Severe ALGY-Anaphy Verified 07/22/23 10:51 laxis amoxicillin Allergy Unknown Verified 07/22/23 10:51 IV RA Meds Allergy ALGY-Anaphy Uncoded 07/22/23 10:51 laxis PFSH Acute 2 PFSH: Medical History 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 with presence of antibiotic-impregnated cement spacer Foot osteomyelitis Bullae Chronic use of steroids Rheumatoid arthritis flare Leukocytosis Spondylolisthesis at L4-L5 level Chronic steroid use Immunization counseling High risk medication use Seropositive rheumatoid arthritis of multiple sites Rheumatoid arthritis Hypothyroidism Hypertension Surgical History Status post incision and drainage Status post left knee replacement History of hand surgery 2right hand, 1 left hand History of hip replacement, total bilateral History of foot surgery x5 right Family History Other CAD (coronary artery disease) Cancer Hyperlipidemia Hypertension Denies family history of Rheumatoid arthritis Diabetes Lupus Chronic kidney disease (CKD) Lung disease Stroke Social History Smoking and tobacco/nicotine status: never used tobacco/nicotine Substance/Drug Use: former Vitals/I&O/Wt Last Vital Signs Temp 97.5 F L 07/23/23 11:55 Pulse 83 07/23/23 11:55 Resp 18 07/23/23 11:55 BP 169/95 07/23/23 11:55 Pulse Ox 94 07/23/23 11:55 O2 Del Method Room Air 07/23/23 11:55 O2 Flow Rate 6 07/23/23 10:30 07/22/23 07/23/23 07/23/23 22:59 06:59 14:59 Intake Total 100 / 100 900 / 900 Output Total 350 / 350 Balance 100 / 100 550 / 550 Weight last 48 hrs Weight 99.79 kg Weight 99.79 kg Physical Exam 2 Narrative: General exam is a female, emotionally upset and surgery has not gone as planned for hip replacement. She is able to answer in an appropriate fashion, and her is present for additional history. HEENT: Oropharynx clear Neck is supple Cardiovascular regular rate and rhythm without murmur Lungs clear Abdomen soft Extremities no sinus clubbing edema, right hip dressing clean and dry. Extremities with trace edema bilaterally. Skin no rash Neuro no obvious focal deficits Urinary Catheter Management: Frey: Cath Placed During This Visit: yes, but has since been removed by the nurse Urinary Catheter Date of Insertion: 07/23/23 Urinary Catheter Time of Insertion: 07:35 Date Urinary Catheter Removed: 07/23/23 Time Urinary Catheter Discontinued: 10:20 Data 07/23/23 12:15 07/23/23 12:15 Other Labs: I have ordered a CBC, CMP, blood cultures, sedimentation rate, CRP Micro: Microbiology 07/23/23 12:22 Blood Culture - Preliminary Blood SPECIMEN COLLECTED 07/23/23 12:15 Blood Culture - Preliminary Blood SPECIMEN COLLECTED 07/23/23 08:09 Gram Stain - Final Hip - Right A&P Assessment and plan (1) Infection of prosthetic hip joint: Concern of infection of right hip joint. Please see surgical notes for details of tissue staining, encountered fluid, necrotic tissue. Cultures were obtained Additionally blood cultures on admission Baseline laboratory including CBC, CMP, sedimentation rate, CRP were obtained and pending A Gram stain was done on the fluid, demonstrating few white blood cells and no organisms. In the interim, initiate ciprofloxacin and vancomycin Infectious disease consultation for guidance regarding possibility of infected joint in the face of previous infections with methicillin sensitive Staph aureus and Pseudomonas. Qualifiers: Encounter type: sequela Qualified Code(s): T84.59XS - Infection and inflammatory reaction due to other internal joint prosthesis, sequela; Z96.649 - Presence of unspecified artificial hip joint Plan History of rheumatoid arthritis. Continue prednisone. Hold leflunomide acutely History of hypertension. Continue chronic home medications Full code currently SCDs for DVT prophylaxis Consider addition of anticoagulation for DVT prophylaxis tomorrow if is not discharged. Thank you for this consultation Consult Attestations 2 Medical Necessity Statement: As per primary Diagnoses Infection of prosthetic hip joint, sequela T84.59XS; Z96.649 Encounter type: sequela Time Spent (min) 44
[2023-07-23] MEDS: CELEcoxib 200 mg Capsule PO ×2 (12:49→23:17)
[2023-07-23] MEDS: ceFAZolin 2,000 MG in sodium chloride 0.9% (plus) 50 ML 100 MG IV ×2 (12:49→20:27)
[2023-07-23] MEDS: chlorhexidine gluconate 0.12% Btl 473 mL 30 ML MUCOUS MEM (12:50)
[2023-07-23 13:20] LABS: Basophils # 0.2 10^3/uL (0.0-0.1); Basophils % 0.8 %; Eosinophils # 0.4 10^3/uL (0.0-0.8); Eosinophils % 1.9 %; Hematocrit 41.1 % (36-47); Lymphocytes # 2.7 10^3/uL (0.8-4.8); Lymphocytes % 13.2 %; Mean Corpuscular HGB Conc 31.4 g/dL (30-55); Mean Platelet Volume 11.5 fL (7.4-10.4); Monocytes # 1.3 10^3/uL (0.2-0.9); Monocytes % 6.4 %; Neutrophils # 15.92 10^3/uL (1.8-7.7); Neutrophils % 77.1 %; Nucleated Red Blood Cells % 0 %; Platelet Count 344 10^3/cmm (157-399); Red Blood Count 4.78 10^6/uL (3.85-5.65); Red Cell Distribution Width 15.7 % (12.1-15.1); White Blood Count 20.66 10^3/uL (3.29-11.43)
[2023-07-23 13:30] LABS: Alanine Aminotransferase 11 U/L (0-33); Albumin Level 3.2 g/dL (3.5-5.2); Alkaline Phosphatase 101 U/L (35-105); Anion Gap 14.6 (5-19); Aspartate Amino Transferase 18 U/L (0-32); Blood Urea Nitrogen 16 mg/dL (6-20); C Reactive Protein 13.3 mg/L (0.0-4.9); Calcium 7.9 mg/dL (8.5-10.5); Carbon Dioxide 23 mmol/L (22-29); Chloride 107 mmol/L (98-107); Creatinine Clr Calc Pharmacy 105.4961; Globulin 2.5 g/dL (1.3-4.6); Glomerular Filtration Rate 87.2 mL/min (90-130); Glucose 85 mg/dL (65-115); Osmolality Calculated 292 mOsm/kg (285-295); Potassium 3.6 mmol/L (3.5-5.1); Sodium 141 mmol/L (136-145); Total Bilirubin 0.2 mg/dL (0.15-1.2); Total Protein 5.7 g/dL (6.6-8.7)
[2023-07-23] MEDS: ciprofloxacin 400 MG/200 ML PREMIX 200 MG IV (13:36)
--- NOTE | 2023-07-23 15:14 | PM.MISC ---
Miscellaneous Note Purpose of Documentation: Postoperative visit Note: Patient is seen with her following her surgery. Extended discussion was undertaken regarding findings at the time of surgery and reason for not proceeding with full revision surgery. Pictures were shared with them from surgery as well.
[2023-07-23] MEDS: vancomycin 1,500 MG/300 ML PIGGYBACK 200 MG IV (15:28)
[2023-07-23] MEDS: diphenhydrAMINE 25 mg Capsule PO (20:24)
[2023-07-23] MEDS: gabapentin 300 mg Capsule 600 MG PO (20:25)
[2023-07-23] MEDS: oxyCODONE 5 mg IR Tab/Cap PO (20:27)
[2023-07-24] VITALS: BP 120/75; PULSE 76; RESP 17; TEMP 36.7; O2SAT 93
[2023-07-24] MEDS: acetaminophen 1,000 MG/100 ML PIGGYBACK 400 MG IV ×2 (00:24→06:19)
[2023-07-24] MEDS: ciprofloxacin 400 MG/200 ML PREMIX 200 MG IV (00:37)
[2023-07-24] MEDS: vancomycin 1,500 MG/300 ML PIGGYBACK 200 MG IV (02:14)
[2023-07-24] MEDS: ceFAZolin 2,000 MG in sodium chloride 0.9% (plus) 50 ML 100 MG IV (03:56)
[2023-07-24 04:00] VITALS: BP 130/80; PULSE 76; RESP 16; TEMP 36.5; O2SAT 93
[2023-07-24 04:43] LABS: Basophils # 0.1 10^3/uL (0.0-0.1); Basophils % 0.9 %; Eosinophils # 0.4 10^3/uL (0.0-0.8); Eosinophils % 3.1 %; Hematocrit 37.2 % (36-47); Lymphocytes # 1.7 10^3/uL (0.8-4.8); Mean Corpuscular HGB Conc 30.9 g/dL (30-55); Mean Corpuscular Hemoglobin 26.5 pg (27-33); Mean Corpuscular Volume 85.7 fl (85-98); Mean Platelet Volume 11.8 fL (7.4-10.4); Monocytes # 1.2 10^3/uL (0.2-0.9); Monocytes % 9.3 %; Neutrophils # 9.28 10^3/uL (1.8-7.7); Neutrophils % 72.9 %; Nucleated Red Blood Cells % 0 %; Platelet Count 291 10^3/cmm (157-399); Red Blood Count 4.34 10^6/uL (3.85-5.65); Red Cell Distribution Width 15.8 % (12.1-15.1); White Blood Count 12.73 10^3/uL (3.29-11.43)
[2023-07-24 05:04] LABS: Anion Gap 15.3 (5-19); Blood Urea Nitrogen 13 mg/dL (6-20); Calcium 7.1 mg/dL (8.5-10.5); Carbon Dioxide 21 mmol/L (22-29); Chloride 108 mmol/L (98-107); Creatinine Clr Calc Pharmacy 105.4961; Glomerular Filtration Rate 87.2 mL/min (90-130); Glucose 110 mg/dL (65-115); Osmolality Calculated 293 mOsm/kg (285-295); Potassium 3.3 mmol/L (3.5-5.1); Sodium 141 mmol/L (136-145)
[2023-07-24 05:44] VITALS: BMI 41.6
[2023-07-24] MEDS: hydroCHLOROthiazide 25 mg Tablet PO (06:13)
[2023-07-24 06:16] VITALS: RESP 16
[2023-07-24] MEDS: oxyCODONE 5 mg IR Tab/Cap PO (06:16)
[2023-07-24 07:40] VITALS: BP 122/82; PULSE 64; RESP 14; TEMP 36.7; O2SAT 96
--- NOTE | 2023-07-24 08:12 | P.CONIM_ITS ---
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 Patient is currently admitted to the hospital since July 23, 2023 for a planned removal of antibiotic spacer of the right hip with conversion to a right total hip arthroplasty with revision components. Her procedure needed to be aborted when she was found to have extensively necrotic subcutaneous fatty tissue, significant bursal fluid with brownish discoloration and clumps of tissue upon making the initial incisions. Soft tissue was sent for pathology and culture which are currently pending at this time. Infectious disease service is consulted regarding antibiotic recommendations in this situation. Patient denies having any fever prior to the procedure. She does have a known history of rheumatoid arthritis and has had flares of arthritis intermittently since 2021. She used to be on combination of Actemra leflunomide and prednisone prior to 2021, remained only on low-dose prednisone for many months afterwards after being discovered to have prosthetic joint infection. Currently she is on leflunomide which has been restarted recently and low-dose prednisone. Actemra has been on hold given her complicated course as outlined below. She has been on cefadroxil up until day of surgery. Most recent CRP from July 23, 2023 at 13.3, previously 4.5 on April 15, 2023, at the time of PJI of left knee this was at 91 in August 2022,, at> 100 at the time of PJI of the right hip in 2021. Patient has had issues with pain and limited mobility at the right hip, currently she is very tearful and frustrated with her overall course of disease. Patient today reports that she has had necrotic tissue encountered in the surgical bed dating as far back as 2006 at the time of her original bilateral hip arthroplasties. Per her description, it appears this was attribute it to rheumatoid arthritis and inflammatory process at that time. Review of Systems 2 General: Reports: 10 or more systems reviewed and unremarkable except in HPI and below Const: Denies: fever(s), chills or body aches Eyes: Denies: change in vision, blurry vision or photophobia ENMT: Reports: hoarseness; Denies: throat pain, enlarged tonsils, odynophagia or nasal congestion Card: Denies: chest pain, palpitations, irregular heart rhythm, edema, swelling of feet/ankles, lightheadedness, pre-syncope, dyspnea on exertion or orthopnea Resp: Denies: dyspnea, productive cough, non-productive cough, wheezing, stridor, pain on inspiration, change in phlegm color, hemoptysis or chest congestion GI: Denies: abdominal pain, nausea, vomiting, hematemesis, coffee ground emesis, dysphagia, heartburn, diarrhea, constipation, GI cramping, change in stool character, hematochezia or melena : Denies: flank pain, difficulty voiding, dysuria, urinary frequency, urinary urgency, urinary hesitancy or hematuria Musc: Denies: neck pain, back pain, extremity pain, joint swelling, joint warmth or deformity Neuro: Denies: headache(s), numbness in extremities, weakness in extremities, sensory changes, difficulty walking, frequent falls, dizziness, vertigo, behavioral changes, Slurred speech present or seizure-like activity Psych: Denies: anxiety, depression, suicidal ideation or homicidal ideation Endo: Denies: polyuria, polydipsia, tired all the time, cold intolerance or hot flashes Malick/Lymph: Denies: easy bruising or easy bleeding Medications/Allergies Home Medications Medication Instructions Recorded Confirmed Last Taken Type walker adjustable platform with #1 ea 01/14/22 07/24/23 11/03/22 Rx padded cuff diphenhydramine HCl 25 mg capsule 50 mg PO BEDTIME 05/09/22 07/24/23 04/27/23 History (Benadryl) tramadol 50 mg tablet 100 mg (2 x 50 mg) PO TID PRN Pain 07/25/22 07/24/23 04/27/23 Rx 30 days #180 tabs levothyroxine 175 mcg tablet 175 mcg PO DAILY #90 tabs 04/22/23 07/23/23 07/22/23 Rx leflunomide 20 mg tablet 20 mg PO QAM 05/19/23 07/24/23 Unknown History hydrochlorothiazide 25 mg tablet 25 mg PO QAM #90 tabs 07/07/23 07/24/23 Unknown Rx alendronate 70 mg tablet 70 mg PO Q7D 07/22/23 07/24/23 Unknown History gabapentin 300 mg capsule 600 mg PO BEDTIME 07/22/23 07/24/23 Unknown History prednisone 10 mg tablet 10 mg PO QAM 07/22/23 07/24/23 Unknown History cefadroxil 500 mg capsule 1,000 mg (2 x 500 mg) PO BID 30 07/24/23 Unknown Rx days #120 caps Allergies Allergy/AdvReac Type Severity Reaction Status Date / Time Penicillins Allergy Severe ALGY-Anaphy Verified 07/22/23 10:51 laxis amoxicillin Allergy Unknown Verified 07/22/23 10:51 IV RA Meds Allergy ALGY-Anaphy Uncoded 07/22/23 10:51 laxis PFSH Acute 2 PFSH: Medical History 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 with presence of antibiotic-impregnated cement spacer Foot osteomyelitis Bullae Chronic use of steroids Rheumatoid arthritis flare Leukocytosis Spondylolisthesis at L4-L5 level Chronic steroid use Immunization counseling High risk medication use Seropositive rheumatoid arthritis of multiple sites Rheumatoid arthritis Hypothyroidism Hypertension Surgical History Status post incision and drainage Status post left knee replacement History of hand surgery 2right hand, 1 left hand History of hip replacement, total bilateral History of foot surgery x5 right Family History Other CAD (coronary artery disease) Cancer Hyperlipidemia Hypertension Denies family history of Rheumatoid arthritis Diabetes Lupus Chronic kidney disease (CKD) Lung disease Stroke Social History Smoking and tobacco/nicotine status: never used tobacco/nicotine Substance/Drug Use: former Vitals/I&O/Wt Last Vital Signs Temp 97.8 F 07/24/23 14:02 Pulse 78 07/24/23 14:02 Resp 15 07/24/23 14:02 BP 122/82 07/24/23 14:02 Pulse Ox 97 07/24/23 14:02 O2 Del Method Room Air 07/24/23 11:35 O2 Flow Rate 6 07/23/23 10:30 Weight last 48 hrs Weight 110.132 kg Weight 99.79 kg Physical Exam 2 Narrative: General: No acute distress, AO x3 HEENT: PERRLA, pupils bilaterally equal and reactive, pallors not present Chest: Normal vesicular breath sounds, no added sounds, equal good air entry bilaterally CVS: S1-S2 regular, no murmurs, no tachycardia, no gallops, no rubs Abdomen: Soft, nontender, no organomegaly, bowel sounds present Neuro: No focal deficits, no facial deformity, AO x3, power 5/5 in all limbs Urinary Catheter Management: Frey: Cath Placed During This Visit: yes, but has since been removed by the nurse Urinary Catheter Date of Insertion: 07/23/23 Urinary Catheter Time of Insertion: 07:35 Date Urinary Catheter Removed: 07/23/23 Time Urinary Catheter Discontinued: 10:20 Data 07/24/23 04:20 07/24/23 04:20 Micro: Microbiology 07/23/23 08:09 Gram Stain - Final Hip - Right Anaerobic Culture - Preliminary Abscess Culture - Preliminary No organisms noted. Few white blood cells 07/23/23 12:22 Blood Culture - Preliminary Blood NEGATIVE TO DATE 07/23/23 12:15 Blood Culture - Preliminary Blood NEGATIVE TO DATE A&P Assessment and plan (1) Infection of prosthetic hip joint: Remote history of bilateral hip arthroplasties at [place], [place] Complicated by prosthetic joint infection discovered in May 2022, suspected secondary seeding from MSSA bacteremia. Status post removal of all existing hardware at the right hip and placement of cement spacers May 2022. Currently remains on chronic suppression due to overall extensive complicated course as outlined below. Qualifiers: Encounter type: sequela Qualified Code(s): T84.59XS - Infection and inflammatory reaction due to other internal joint prosthesis, sequela; Z96.649 - Presence of unspecified artificial hip joint (2) Infection of prosthetic knee joint: In May 2022 presented as abscess in the popliteal fossa. Eventually revealed itself to be a prosthetic joint infection of the left knee status post removal of all components with placement of cement spacers in August 2022. Has not undergone revision yet. Qualifiers: Encounter type: sequela Qualified Code(s): T84.59XS - Infection and inflammatory reaction due to other internal joint prosthesis, sequela; Z96.659 - Presence of unspecified artificial knee joint Plan Ms. Barbosa? has a complicated history of RIGHT prosthetic hip joint infection status post removal of all existing hardware at the right hip and placement of spacers on May with Dr. Otto. OR cx with MSSA. Completed 12 weeks of organism directed therapy with cefazolin for this. Also with LEFT Knee PJI which declared itself after going off abx for 6 weeks in July 2022 ; s/p removal of all hardware from knee with abx cement spacers in place on 09/18/[address] Horan . OR cx with MSSA. Completed 8 weeks of cefazolin 2g iv every 8 hrs (09/18-11/18/22) for this and had been on chronic suppression since October 2022 until 03/20/23. Postoperative course complicated by wound dehiscence on the left knee with seroma. Status post wound exploration, I&D of lateral leg fluid collection on October 16, [address] Horan. Multiple cultures negative from this date. Thereafter she continued to have persistent drainage at the knee for which she underwent a second left knee incision and debridment with wound vac placement on 01/08/[address] Otto. Cx from OR this time revealing Pseudomonas putida, suspected contaminant however did receive 6 weeks of Ciprofloxacin based on susceptibility to cover for possibility of true infection and high risk given her complicated history. The left knee remains healed. She remained on chronic suppression with cefadroxil after completing her course with IV cefazolin. Chronic suppression was done after extensive discussion with the patient given her complicated history with recurrent infections, poor wound healing after surgeries, and suspected mechanism of multiple joint infections to be related to secondary seeding from MSSA bacteremia that she had in December 2021 (without obvious joint involvement at the time) and then again in May 2022 (right hip joint with obvious involvement at this time, LEFT knee popliteal fossa abscess and left foot osteomyelitis with GPCs on bone cx). She also has a left hip prosthesis which did not show any obvious sins of infection through this entire timeline, however she has remained on abx for much of the last 2 years. I cannot rule out the possibility of additional LEFT prosthetic hip seeding and therefore elected to keep patient on chronic suppression with cefadroxil. Echocardiogram was negative for endocarditis in 12/2021 and 05/2022. She was taken off suppressive abx on March 20, 2023 for planned right hip revision and did not have any overt recurrence of infection with holding abx for 6 weeks. Her CRP was down to 4.5 and ESR at 14, both within normal range. She was planned for definitive hip revision on 04/28/23 however procedure was aborted in the OR due to discovery of milky fluid within the greater trochanteric bursal area with necrotic appearing or fibrinous appearing tissue.Additionally, fluid within the hip joint which appears primarily clear, but some changes in the synovial tissue as well. Multiple cultures were taken on this day, all of them remained negative to date. On 05/13/2023 she was discovered to have a hematoma along the suture line which subsequently healed. She restarted cefadroxil at this time as a prophylactic antibiotic to prevent an infected hematoma. She has been extremely hesitant to come off of antibiotics thereafter and has remained on cefadroxil since. Since most recent intraoperative cultures from 04/28/2023 were negative, she was considered low risk from an ID standpoint to proceed with definitive hip revision. this was planned for 07/23/23. Surgery was deferred when intraoperatively patient was discovered to have extensive necrosis necrotic subcutaneous fatty tissue, significant bursal fluid with brownish discoloration and clumps of tissue upon making the initial incisions. Pictures are attached. Cultures were taken, thus far Gram stain without any organisms. Culture negative thus far. Plan: Thus far cultures from the surgical bed remain negative. Extensive necrosis as encountered during the surgery may be related to inflammation, resolving/complicated hematoma, history of rheumatoid arthritis. Possibility of infection not excluded at this time, will need to await for final cultures prior to determining the nature of this collection. Additionally we will send out specimen for DNA sequencing to [facility]. We do not have the capability to perform this test in- house. If culture this time again revealed MSSA, we will have to go back to evaluation for possibly occult sources from where patient may be having recurrent infections. This will include but not limited to STAS, imaging of the back, however final determination of this course of action remains dependent on cultures and results of the DNA sequencing. Additionally discussed with the patient to obtain a second opinion at a [facility]. We would likely be proceeding with making this referrals once results of pending culture and DNA sequencing are obtained. Hold off on starting any long-term IV antibiotics or change in course with antibiotics until pending results are obtained. She may resume cefadroxil suppression at discharge. Will follow patient's results on July 28, 2023 and call her with results, discuss next steps. Consult Attestations 2 Medical Necessity Statement: per admitting Coding Level of Care Code Acute Code for Chg Fwd High MDM includes number and complexity of problems actively addressed during encounter, amount and/or complexity of data reviewed/ordered and described risk of complication, morbidity or mortality of management as documented Diagnoses Infection of prosthetic hip joint, sequela T84.59XS; Z96.649 Encounter type: sequela Infection of prosthetic knee joint, sequela T84.59XS; Z96.659 Encounter type: sequela
--- NOTE | 2023-07-24 08:16 | PC.PHAR ---
pt states she takes care of her own medications-pt states was still taking cefadroxil 500mg takes 1000mg bid ext shows last filled 06/25/23 9d/s pt states last took thu07/22/23
--- NOTE | 2023-07-24 08:58 | P.PN_ITS ---
Subjective 2 Subjective: Discussed with ID, appreciate their input. Patient emotional this morning, upset that surgery could not be completed. Demonstrates good understanding of concerns, and current plan by ID. Medications: Reviewed: Yes Vitals/I&O/Wt Last Vital Signs Temp 98.0 F 07/24/23 07:40 Pulse 64 07/24/23 07:40 Resp 14 07/24/23 07:40 BP 122/82 07/24/23 07:40 Pulse Ox 96 07/24/23 07:40 O2 Del Method Room Air 07/24/23 07:40 O2 Flow Rate 6 07/23/23 10:30 07/23/23 07/24/23 07/24/23 22:59 06:59 14:59 Intake Total 1950 / 3330 650 / 3980 460 / 460 Balance 1950 / 2980 650 / 3630 460 / 460 Weight last 48 hrs Weight 110.132 kg Weight 99.79 kg Weight 99.79 kg Physical Exam 2 Narrative: General exam no distress Cardiovascular regular rate and rhythm Lungs clear Right lower extremity surgical site clean and dry Urinary Catheter Management: Frey: Cath Placed During This Visit: yes, but has since been removed by the nurse Urinary Catheter Date of Insertion: 07/23/23 Urinary Catheter Time of Insertion: 07:35 Date Urinary Catheter Removed: 07/23/23 Time Urinary Catheter Discontinued: 10:20 Data 07/24/23 04:20 07/24/23 04:20 Micro: Microbiology 07/23/23 12:22 Blood Culture - Preliminary Blood SPECIMEN COLLECTED 07/23/23 12:15 Blood Culture - Preliminary Blood SPECIMEN COLLECTED 07/23/23 08:09 Gram Stain - Final Hip - Right A&P Assessment and plan (1) Infection of prosthetic hip joint: Concern of infection of right hip joint. Please see surgical notes for details of tissue staining, encountered fluid, necrotic tissue. Cultures were obtained Additionally blood cultures on admission Infectious disease, is recommending continuation of cefadroxil. Infectious disease will be doing DNA studies on specimen from right hip. Okay to discharge from medicine standpoint. Follow-up per orthopedics and ID Qualifiers: Encounter type: sequela Qualified Code(s): T84.59XS - Infection and inflammatory reaction due to other internal joint prosthesis, sequela; Z96.649 - Presence of unspecified artificial hip joint Plan History of rheumatoid arthritis. Continue prednisone. May resume leflunomide at discharge History of hypertension. Continue chronic home medications Full code currently SCDs for DVT prophylaxis Thank you for this consultation Attestations 2 Medical Necessity Statement*: As per primary Diagnoses Infection of prosthetic hip joint, sequela T84.59XS; Z96.649 Encounter type: sequela Time Spent (min) 10
--- NOTE | 2023-07-24 09:48 | PC.CHAP ---
Pastoral Care Encounter/Spiritual Assessment Type of Contact [] Declined crime victim specialist visit [] Patient/Family/Request visit [] Outpatient visit [] Follow-up visit [] Physician referral [] Code/Alert [x] Routine visit [] Staff referral [] Actively dying [] Patient sleeping [] Family support [] [] Out of room [] Palliative care [] [] Receiving care in room [] Pre-surgical visit [] Trauma [] Long length of stay [] ICU visit [] Other: Relational/Emotional Strength [x] Patient feels connected with others/family/visitors/staff [x] Distress [] Loneliness/isolation [] Abandonment Spirituality of Patient [x] Person of Mary [] Attends Scientology of their Mary [x] Believes in Prayer [] Reads Bible or Gnosticism materials [] There are Spiritual issues to be addressed Frame Coverer Interventions [x] Prayer [x] Active listening [x] Non-anxious presence [x] Spiritual/emotional support [] Crisis/trauma care [] Spiritual counseling [] Bereavement support [] Provided bereavement packet [] Provided Bible/devotional materials [] Provided toy/stuffed animal, coloring book to patient or family member [] Provided Communion [] Anointing/Terry [] Salvation [x] Completed spiritual assessment [] Other: Impact on Illness or Injury [] Angry [] Fearful [] Anxious [] Often cries [] Exhaustion [] Unable to work [] Unable to attend mandaen [] Unable to walk/stand [] Unable to read [] Unable to drive [] Unable to eat/drink [] Unable to sleep [] Unable to be with family [] Patient intubated [] Other: Summary Time spent with patient 5 min
[2023-07-24] MEDS: levothyroxine 175 mcg Tablet PO (11:13)
[2023-07-24] MEDS: aspirin 325 mg EC Tablet PO (11:13)
[2023-07-24] MEDS: potassium chloride ER 20 mEq Tablet 40 MEQ PO (11:13)
[2023-07-24] MEDS: predniSONE 10 mg Tablet PO (11:15)
[2023-07-24] MEDS: acetaminophen 500 mg Tablet 1000 MG PO (11:17)
[2023-07-24] MEDS: CELEcoxib 200 mg Capsule PO (11:17)
[2023-07-24 11:35] VITALS: PULSE 78; RESP 15; TEMP 36.6; O2SAT 97
--- NOTE | 2023-07-24 12:44 | PC.OT ---
Attempted OT evaluation with nursing stating to hold patient due to patient being upset and tearful; will attempt at later time.
[2023-07-24 14:02] VITALS: BP 122/82; PULSE 78; RESP 15; TEMP 36.6; O2SAT 97
--- NOTE | 2023-07-24 17:45 | P.DS_ITS ---
Discharge Providers Date of Admission: 07/23/23 10:50 Date of Discharge: July 24, 2023 Attending Provider at Admission: Aliza Otto MD Attending Provider at Discharge: Aliza Otto MD Consults: MD Priya Singer MD Primary Care Provider: Kylie Stewart DO Diagnoses at Discharge Discharge Diagnosis (1) Infection of prosthetic hip joint: Status: Acute Qualifiers: Encounter type: sequela Qualified Code(s): T84.59XS - Infection and inflammatory reaction due to other internal joint prosthesis, sequela; Z96.649 - Presence of unspecified artificial hip joint Permanent problem details: Date of procedure: July 23, 2023 Diagnosis: Right hip remote infection status post antibiotic hip spacer Post-op findings: Necrotic subcutaneous fatty tissue, significant bursal fluid with brownish discoloration and clumps of tissue Procedure done: Right hip extensive incision and drainage with debridement of subcutaneous tissue, fascia, and synovium with irrigation including Dakins solution, dilute Betadine solution, and 9 L of fluid, 3 of which contained vancomycin Reason for Visit Reason for Visit: M25.551, T84.451XD, T84.59XS, Z89.621 Brief History: This 52-year-old woman presented today for revision hip arthroplasty following remote hip replacement approximately 17 to 18 years ago with subsequent infection and removal of prosthesis. Antibiotic spacer was placed. In April 2023, the patient was brought to the operating room for revision to definitive prosthesis, but there was a small collection of fluid which was whitish in color and purulent. Therefore, cultures were taken and the surgical procedure was delayed. The patient continued to be followed by Dr. Murphy from an infectious disease standpoint. Patient was felt appropriate for final revision surgery with definitive prosthetic placement. She presented today for this procedure. Risks and complications were discussed with the patient, and consents were signed. Hospital Course Hospital Course Patient was admitted to the hospital under observation status following aborted plans for revision total hip arthroplasty with removal of antibiotic cement spacer. Upon entry into the patient's soft tissues, there was copious fluid, and there was very significant necrotic tissue. The decision was made at the time of surgery to abort plans for placement of revision hip arthroplasty. The patient was quite upset over this decision; however, I attempted to explain to her the reasons and showed her intraoperative photographs of the necrotic tissue. On the first postoperative day, she was doing well. She was neurologically intact, but she was very depressed. The patient was discharged home to follow-up with me in the office as scheduled. Physical Exam Const: COMMON NORMALS: no acute distress, average body habitus, patient oriented x3 and alert GENERAL APPEARANCE: cooperative and comfortable ORIENTATION/CONSCIOUSNESS: Yes awake HENMT: COMMON NORMALS: normocephalic and atraumatic HEAD & SCALP: normocephalic and atraumatic Eye: GENERAL EYE: appearance normal, both eyes and all related structures Chest: COMMONS NORMALS: normal inspection of the chest Resp: COMMON NORMALS: normal respiratory effort EFFORT & INSPECTION: Yes able to speak in complete sentences and Yes symmetric chest movement Extremity: RIGHT LOWER EXTREMITY: Yes hip joint Right hip: Yes inspection (No drainage, dressing is intact), Yes ROM (Not evaluated) and Yes neurovascular exam (Intact) Neuro: COMMON NORMALS: patient oriented x3 SENSORIUM/ORIENTATION: Yes alert Psych: COMMON NORMALS: mental status grossly normal APPEARANCE: Yes grossly normal ATTITUDE: Yes calm and Yes engaged ATTENTION/CONCENTRATION: Yes attention grossly intact Skin: COMMON NORMALS: no rashes or lesions noted GENERAL SKIN EXAM: no rashes or lesions noted Urinary Catheter Management: Frey: Cath Placed During This Visit: yes, but has since been removed by the nurse Urinary Catheter Date of Insertion: 07/23/23 Urinary Catheter Time of Insertion: 07:35 Date Urinary Catheter Removed: 07/23/23 Time Urinary Catheter Discontinued: 10:20 Discharge Data Studies Completed and Pending Completed Studies During Hospitalization Category Date Time Status XR pelvis 1-2V* [id number] Routine Exams 07/23/23 11:06 Completed Pending at discharge Category Date Time Status Abscess Culture and Gram Stain Stat Lab 07/23/23 08:09 Results Anaerobic Culture Stat Lab 07/23/23 08:09 Results Blood Culture Stat Lab 07/23/23 12:22 Results Pathology: Surgical [PTH] Routine Pth 07/23/23 08:22 Received Laboratory Results WBC 12.73 10^3/uL (3.29-11.43) H 07/24/23 04:20 Corrected WBC Cancelled 07/23/23 12:15 RBC 4.34 10^6/uL (3.85-5.65) 07/24/23 04:20 Hgb 11.50 g/dL (11.27-16.99) 07/24/23 04:20 Hct 37.2 % (36-47) 07/24/23 04:20 MCV 85.7 fl (85-98) 07/24/23 04:20 MCH 26.5 pg (27-33) L 07/24/23 04:20 MCHC 30.9 g/dL (30-55) 07/24/23 04:20 RDW 15.8 % (12.1-15.1) H 07/24/23 04:20 Plt Count 291 10^3/cmm (157-399) 07/24/23 04:20 MPV 11.8 fL (7.4-10.4) H 07/24/23 04:20 Gran % Cancelled 07/23/23 12:15 Neut % (Auto) 72.9 % 07/24/23 04:20 Lymph % (Auto) 13.0 % 07/24/23 04:20 Lander % (Auto) 9.3 % 07/24/23 04:20 Eos % (Auto) 3.1 % 07/24/23 04:20 Baso % (Auto) 0.9 % 07/24/23 04:20 Neut # (Auto) 9.28 10^3/uL (1.8-7.7) H 07/24/23 04:20 Lymph # (Auto) 1.7 10^3/uL (0.8-4.8) 07/24/23 04:20 Lander # (Auto) 1.2 10^3/uL (0.2-0.9) H 07/24/23 04:20 Eos # (Auto) 0.4 10^3/uL (0.0-0.8) 07/24/23 04:20 Baso # (Auto) 0.1 10^3/uL (0.0-0.1) 07/24/23 04:20 Absolute Gran (auto) Cancelled 07/23/23 12:15 Nucleated RBC % (auto) 0 % 07/24/23 04:20 Total Counted Cancelled 07/23/23 08:09 Atypical Lymphs % Cancelled 07/23/23 08:09 Absolute Neutrophils Cancelled 07/23/23 08:09 Segmented Neutrophils Cancelled 07/23/23 08:09 Abs Segm Neuts (Man) Cancelled 07/23/23 08:09 Band Neutrophils Cancelled 07/23/23 08:09 Abs Band Neuts (Man) Cancelled 07/23/23 08:09 Absolute Lymphocytes Cancelled 07/23/23 08:09 Lymphocytes (Manual) Cancelled 07/23/23 08:09 Monocytes (Manual) Cancelled 07/23/23 08:09 Absolute Monocytes Cancelled 07/23/23 08:09 Eosinophils (Manual) Cancelled 07/23/23 08:09 Absolute Eosinophils Cancelled 07/23/23 08:09 Basophils (Manual) Cancelled 07/23/23 08:09 Absolute Basophils Cancelled 07/23/23 08:09 Metamyelocytes Cancelled 07/23/23 08:09 Myelocytes Cancelled 07/23/23 08:09 Promyelocytes Cancelled 07/23/23 08:09 Nucleated RBCs Cancelled 07/23/23 08:09 Nucleated RBCs # 0.0 /100WBC 07/24/23 04:20 Differential Comment Yes 07/23/23 08:09 Pathologist Review Cancelled 07/23/23 08:09 Hypersegmented Polys Cancelled 07/23/23 08:09 Blast Cells Cancelled 07/23/23 08:09 Smudge Cells Cancelled 07/23/23 08:09 Toxic Granulation Cancelled 07/23/23 08:09 Toxic Vacuolation Cancelled 07/23/23 08:09 Dohle Bodies Cancelled 07/23/23 08:09 Deja Rods Cancelled 07/23/23 08:09 Platelet Estimate Cancelled 07/23/23 08:09 Giant Platelets Cancelled 07/23/23 08:09 Polychromasia Cancelled 07/23/23 08:09 Hypochromasia Cancelled 07/23/23 08:09 Poikilocytosis Cancelled 07/23/23 08:09 Basophilic Stippling Cancelled 07/23/23 08:09 Anisocytosis Cancelled 07/23/23 08:09 Microcytosis Cancelled 07/23/23 08:09 Macrocytosis Cancelled 07/23/23 08:09 Spherocytes Cancelled 07/23/23 08:09 Sickle Cells Cancelled 07/23/23 08:09 Target Cells Cancelled 07/23/23 08:09 Tear Drop Cells Cancelled 07/23/23 08:09 Ovalocytes Cancelled 07/23/23 08:09 Stomatocytes Cancelled 07/23/23 08:09 Helmet Cells Cancelled 07/23/23 08:09 [place] Bodies Cancelled 07/23/23 08:09 Jackson Cells Cancelled 07/23/23 08:09 Crenated Cell Cancelled 07/23/23 08:09 Acanthocytes (Spur) Cancelled 07/23/23 08:09 Rouleaux Cancelled 07/23/23 08:09 Schistocytes Cancelled 07/23/23 08:09 RBC Morph Comment Cancelled 07/23/23 08:09 ESR Cancelled 07/23/23 12:15 Sodium 141 mmol/L (136-145) 07/24/23 04:20 Potassium 3.3 mmol/L (3.5-5.1) L 07/24/23 04:20 Chloride 108 mmol/L (98-107) H 07/24/23 04:20 Carbon Dioxide 21 mmol/L (22-29) L 07/24/23 04:20 Anion Gap 15.3 (5-19) 07/24/23 04:20 BUN 13 mg/dL (6-20) 07/24/23 04:20 Creatinine 0.7 mg/dL (0.5-0.9) 07/24/23 04:20 GFR Calculation 87.2 mL/min (90-130) L 07/24/23 04:20 Glucose 110 mg/dL (65-115) 07/24/23 04:20 Calculated Osmolality 293 mOsm/kg (285-295) 07/24/23 04:20 Calcium 7.1 mg/dL (8.5-10.5) L 07/24/23 04:20 Total Bilirubin 0.2 mg/dL (0.15-1.2) 07/23/23 13:05 AST 18 U/L (0-32) 07/23/23 13:05 ALT 11 U/L (0-33) 07/23/23 13:05 Alkaline Phosphatase 101 U/L (35-105) 07/23/23 13:05 C-Reactive Protein 13.3 mg/L (0.0-4.9) H 07/23/23 13:05 Total Protein 5.7 g/dL (6.6-8.7) L 07/23/23 13:05 Albumin 3.2 g/dL (3.5-5.2) L 07/23/23 13:05 Globulin 2.5 g/dL (1.3-4.6) 07/23/23 13:05 Fluid Color Red 07/23/23 08:09 Fluid Appearance Cloudy 07/23/23 08:09 Fluid WBC 2074 /uL 07/23/23 08:09 Fluid RBC 336.000 10^3/uL 07/23/23 08:09 Fld Polynuclear WBCs # 1.687 07/23/23 08:09 Fld Polynuclear WBCs % 81.300 % 07/23/23 08:09 Fl Mononucl WBCs #(Auto) 0.387 07/23/23 08:09 Fl Mononuclear % Auto 18.700 % 07/23/23 08:09 Fld Crystal Laterality Right hip body fluid 07/23/23 08:09 Vitals Last Vital Signs Temp 97.8 F 07/24/23 14:02 Pulse 78 07/24/23 14:02 Resp 15 07/24/23 14:02 BP 122/82 07/24/23 14:02 Pulse Ox 97 07/24/23 14:02 O2 Del Method Room Air 07/24/23 11:35 O2 Flow Rate 6 07/23/23 10:30 Discharge Plan Discharge Patient Disposition: Home Condition: Stable Prescriptions: Continued gabapentin 300 mg capsule 600 mg PO BEDTIME leflunomide 20 mg tablet 20 mg PO QAM (DME) walker adjustable platform with padded cuff See Rx Instructions .Route .MEDSUPPLY Qty: 1 0RF Rx Instructions: As directed prednisone 10 mg tablet 10 mg PO QAM alendronate 70 mg tablet 70 mg PO Q7D Rx Instructions: on thursday tramadol 50 mg tablet 100 mg PO TID PRN (Reason: Pain) 30 Days Qty: 180 0RF levothyroxine 175 mcg tablet 175 mcg PO DAILY Qty: 90 1RF hydrochlorothiazide 25 mg tablet 25 mg PO QAM Qty: 90 1RF cefadroxil 500 mg capsule 1,000 mg PO BID 30 Days Qty: 120 12RF diphenhydramine HCl [Benadryl] 25 mg Capsule 50 mg PO BEDTIME Discharge Orders: Discharge Order (Routine); Ordered 07/24/23 Ordered By: Aliza Otto Referrals: Aliza Otto MD [Physician] - 08/06/23 3:15 pm Priya Murphy MD [Hospitalist] - 08/11/23 1:00 pm (Infectious Disease clinic) Kylie Stewart DO [Primary Care Provider] - (We have notified your physician's clinic of the need for a follow-up appointment to be scheduled. If you have not heard from them within the next 2 business days, please call them directly. ) Discharge Diet: Advance as tolerated and Usual diet Discharge Activity: Increase activity as tolerated and As per PT/OT instructions Patient Instructions: Joint Incision and Drainage (DC), Opioid Safety Activity Restrictions/Additional Instructions: Posterior hip precautions. Maintain current dressing. May shower. Weightbearing as tolerated. Discharge Attestations Time Spent in Discharge Care*: greater than 30 min Specific Discharge Activities: educating patient, documenting/other paperwork and evaluating patient/reviewing data Status at Discharge: Cognitive status at discharge: cognitively intact , Behavioral status at discharge: cooperative , Quality Metrics Clinical Quality Measures [ No reported AMI, CVA or VTE this stay] Coding Level of Care Code Acute Code for Chg Fwd Diagnoses Infection of prosthetic hip joint, sequela T84.59XS; Z96.649 Encounter type: sequela
== END 2023-07-24 14:03 | disposition home or self-care (01) ==
LOC: MEDSURG 10:50
PROVIDERS: Nurse Practitioner; Admitting Provider Specialist; PCP Family Medicine; Visit Provider Specialist
PROC: (CPT 26990; principal; 2023-07-23 07:00)
PROC: (CPT 26990; 2023-07-23 07:00)
DX: T84.59XS Infection and inflammatory reaction due to other internal joint prosthesis, sequela (principal); Y82.8 Other medical devices associated with adverse incidents; Z79.52 Long term (current) use of systemic steroids; M06.9 Rheumatoid arthritis, unspecified; E03.9 Hypothyroidism, unspecified; I10 Essential (primary) hypertension
CPT/HCPCS: 26990; 36415; 51702; 72170; 80048; 80053; 80503; 85025; 86140; 87040; 87070; 87075; 87205; 88307; 89050; G0378; J0131; J0690; J0744; J2175; J3010; J3370; J7030; J7050; J7512

== ENCOUNTER → 2023-08-06 14:46 | Outpatient (BNVA) | payer MEDICARE, SELFPAY | PROVIDERS: Visit Provider Nurse Practitioner | DX: Z89.621 Acquired absence of right hip joint (principal); T84.59XS Infection and inflammatory reaction due to other internal joint prosthesis, sequela; M25.551 Pain in right hip; Z96.641 Presence of right artificial hip joint | CPT/HCPCS: 99024 ==

== ENCOUNTER → 2023-08-17 14:38 | Outpatient (BNVA) | payer MEDICARE, SELFPAY | PROVIDERS: Visit Provider Specialist | DX: Z89.621 Acquired absence of right hip joint (principal) | CPT/HCPCS: 99213 ==

== ENCOUNTER 2023-11-25 13:13 | Outpatient (CLI) | payer MEDICARE, SELFPAY ==
[2023-11-25 13:57] LABS: Basophils # 0.2 10^3/uL (0.0-0.1); Basophils % 1.1 %; Eosinophils # 0.5 10^3/uL (0.0-0.8); Eosinophils % 3.2 %; Lymphocytes # 2.6 10^3/uL (0.8-4.8); Lymphocytes % 16.2 %; Mean Corpuscular HGB Conc 32.3 g/dL (30-55); Mean Corpuscular Hemoglobin 27.3 pg (27-33); Mean Corpuscular Volume 84.5 fl (85-98); Mean Platelet Volume 12.3 fL (7.4-10.4); Monocytes # 1.3 10^3/uL (0.2-0.9); Neutrophils # 11.17 10^3/uL (1.8-7.7); Neutrophils % 70.6 %; Nucleated Red Blood Cells % 0 %; Platelet Count 339 10^3/cmm (157-399); Red Blood Count 5.21 10^6/uL (3.85-5.65); Red Cell Distribution Width 19.2 % (12.1-15.1); White Blood Count 15.82 10^3/uL (3.29-11.43)
[2023-11-25 14:00] LABS: Erythrocyte Sedimentation Rate 36 mm/hr (0-15)
[2023-11-25 14:14] LABS: Alanine Aminotransferase 14 U/L (0-33); Albumin Level 3.8 g/dL (3.5-5.2); Alkaline Phosphatase 130 U/L (35-105); Anion Gap 16.5 (5-19); Aspartate Amino Transferase 17 U/L (0-32); Blood Urea Nitrogen 14 mg/dL (6-20); C Reactive Protein 9.9 mg/L (0.0-4.9); Calcium 9.1 mg/dL (8.5-10.5); Carbon Dioxide 24 mmol/L (22-29); Chloride 102 mmol/L (98-107); Globulin 3.6 g/dL (1.3-4.6); Glomerular Filtration Rate 74.5 mL/min (90-130); Glucose 117 mg/dL (65-115); Osmolality Calculated 290 mOsm/kg (285-295); Potassium 3.5 mmol/L (3.5-5.1); Sodium 139 mmol/L (136-145); Total Bilirubin 0.2 mg/dL (0.15-1.2); Total Protein 7.4 g/dL (6.6-8.7)
== END 2023-11-25 13:14 | disposition home or self-care (01) ==
PROVIDERS: Absent Provider Student in an Organized Health Care Education/Training Program; PCP Family Medicine
DX: Z01.89 Encounter for other specified special examinations (principal)
CPT/HCPCS: 36415; 80053; 85025; 85651; 86140

== ENCOUNTER → 2024-04-19 12:30 | Outpatient (BNVA) | payer MEDICARE, SELFPAY | PROVIDERS: PCP Family Medicine; Visit Provider Student in an Organized Health Care Education/Training Program | DX: T84.59XS Infection and inflammatory reaction due to other internal joint prosthesis, sequela (principal); Z96.659 Presence of unspecified artificial knee joint; Z96.649 Presence of unspecified artificial hip joint; X58.XXXS Exposure to other specified factors, sequela | CPT/HCPCS: 99213 ==

== ENCOUNTER → 2024-10-10 09:56 | Outpatient (BNVA) | payer MEDICARE, SELFPAY | PROVIDERS: PCP Family Medicine; Visit Provider Podiatrist Foot & Ankle Surgery | DX: L97.522 Non-pressure chronic ulcer of other part of left foot with fat layer exposed (principal) | CPT/HCPCS: 87070; 87075; 87205 ==

== ENCOUNTER 2024-10-10 10:16 | Outpatient (CLI) | payer MEDICARE, SELFPAY | END 2024-10-10 10:17 | disposition home or self-care (01) | LOC: SPT 10:16 | PROVIDERS: PCP Family Medicine; Visit Provider Podiatrist Foot & Ankle Surgery | DX: Z46.89 Encounter for fitting and adjustment of other specified devices (principal); L97.522 Non-pressure chronic ulcer of other part of left foot with fat layer exposed | CPT/HCPCS: 11043; 97760; 99214; L4361 ==

== ENCOUNTER → 2024-11-16 14:44 | Outpatient (BNVA) | payer MEDICARE, SELFPAY | PROVIDERS: PCP Family Medicine; Visit Provider Family Medicine | DX: Z12.4 Encounter for screening for malignant neoplasm of cervix (principal) | CPT/HCPCS: 87624 ==

== ENCOUNTER → 2024-11-22 13:26 | Outpatient (BNVA) | payer MEDICARE, SELFPAY | PROVIDERS: PCP Family Medicine; Visit Provider Nurse Practitioner Family | DX: G89.29 Other chronic pain (principal); M54.42 Lumbago with sciatica, left side | CPT/HCPCS: 99214 ==

== ENCOUNTER → 2024-11-29 10:18 | Outpatient (BNVA) | payer MEDICARE, SELFPAY | PROVIDERS: PCP Family Medicine; Visit Provider Nurse Practitioner Family | DX: M79.18 Myalgia, other site (principal); M54.9 Dorsalgia, unspecified | CPT/HCPCS: 20553; 99214; J1010; J3490 ==

== ENCOUNTER → 2024-12-12 09:03 | Outpatient (BNVA) | payer MEDICARE, SELFPAY | PROVIDERS: PCP Family Medicine; Visit Provider Nurse Practitioner Family | DX: M54.9 Dorsalgia, unspecified (principal) | CPT/HCPCS: 99214 ==

== ENCOUNTER 2025-01-02 11:36 | Outpatient (CLI) | payer MEDICARE, SELFPAY ==
--- NOTE | 2025-01-02 11:40 | MM_ITS ---
WS: [id number] BILATERAL 3D TOMOSYNTHESIS DIGITAL SCREENING MAMMOGRAPHY WITH CAD CLINICAL INFORMATION: breast cancer screening HISTORY: Screening mammogram. No current complaints. COMPARISON: 2020 TECHNIQUE: Bilateral CC and MLO views. FINDINGS: Scattered fibroglandular densities bilaterally. No suspicious focal mass, asymmetry, calcifications, or architectural distortion. No evidence of malignancy. A few incidental punctate calcifications. MM/MM scr tomosynthesis [id number] IMPRESSION: DENSITY: There are scattered areas of fibroglandular density. BI-RADS: 2 - Benign. FOLLOW UP: 1 Year Follow-up Recommend return to annual screening mammography.
== END 2025-01-02 11:37 | disposition home or self-care (01) ==
LOC: RAD 11:37
PROVIDERS: PCP Family Medicine; Visit Provider Family Medicine
DX: Z12.31 Encounter for screening mammogram for malignant neoplasm of breast (principal); R92.323 Mammographic fibroglandular density, bilateral breasts; R92.1 Mammographic calcification found on diagnostic imaging of breast
CPT/HCPCS: 77063; 77067